=== PATIENT | male | born 1935 | race Caucasian/White ===

== ENCOUNTER 2018-01-03 08:29 | Inpatient (IN) | payer MEDICARE, OTHER ==
[2018-01-03 08:30] VITALS: BMI 34.2
[2018-01-03] MEDS ORDERED: Iohexol 240 (50 ml) PO STA (08:51)
[2018-01-03 09:07] LABS: BASO % 0.4 % (0.0-2.0); HEMOGLOBIN 12.7 g/dL (12.0-18.0); LYMPH # 0.8 K/uL (1.0-4.3); LYMPH % 9.5 % (20.0-40.0); MEAN CELL VOLUME 87.2 fL (80.0-94.0); MEAN CORPUSCULAR HEMOGLOBIN 30.3 pg (27.0-31.0); MEAN CORPUSCULAR HGB CONC 34.7 g/dL (33.0-37.0); MEAN PLATELET VOLUME 7.3 fL (7.2-11.7); MONO # 0.1 K/uL (0.0-0.8); MONO % 0.8 % (0.0-10.0); NEUT # 7.7 K/uL (1.8-7.0); NEUT % 89.3 % (50.0-75.0); PLATELET COUNT 194 K/uL (130-400); RBC 4.18 Mil/uL (4.40-5.90); RED CELL DISTRIBUTION WIDTH 13.8 % (11.5-14.5); WHITE BLOOD COUNT 8.6 K/uL (4.8-10.8)
--- NOTE | 2018-01-03 09:08 | C.PDOC ---
History Of Present Illness 82 y/o male with dementia, cardiac problems, on xarelto, brought to er by family for not feeing well since yesterday. pt with dec appetite yesterday with few episodes of clear vomitus, and abdominal pain, today with rigors. no sick contacts. pt unable to add much to history due to dementia Time Seen by Provider: 01/03/18 08:40 Chief Complaint (Nursing): Abdominal Pain History Per: Patient, Family History/Exam Limitations: physical impairment Current Symptoms Are (Timing): Worse Past Medical History Reviewed: Historical Data, Nursing Documentation, Vital Signs Vital Signs: Last Vital Signs Temp 98.2 F 01/04/18 08:44 Pulse 75 01/04/18 08:44 Resp 20 01/04/18 08:44 BP 119/65 01/04/18 08:44 Pulse Ox 92 L 01/04/18 09:15 - Medical History PMH: CAD, Cardia Arrhythmia (A FIB), Dementia, Diabetes, HTN, Hypercholesterolemia, Hypothyroidism Denies: Chronic Kidney Disease Surgical History: [facility] CORONAR ARTERIOGR-2 CATH (09/19/13) HEAD & NECK ENDARTER NEC (09/19/13) LEFT HEART CARDIAC CATH (09/19/13) LT HEART ANGIOCARDIOGRAM (09/19/13) PROCEDURE ON SINGLE VESSEL (09/19/13) Family History: States: Unknown Family Hx - Social History Hx Tobacco Use: No Hx Alcohol Use: No Hx Substance Use: No - Immunization History Hx Tetanus Toxoid Vaccination: No Hx Influenza Vaccination: Yes (10/2017) Hx Pneumococcal Vaccination: Yes (10/2017) Review Of Systems Review Of Systems: ROS cannot be obtained secondary to pt's inabilty to answer questions. (patient's dementia limits him from communicating well) Physical Exam - Physical Exam Appears: Non-toxic, In Acute Distress, Other (shaking with rigors) Skin: Warm, Dry, No Rash Head: Atraumatic, Normacephalic Eye(s): bilateral: Normal Inspection Nose: Normal Oral Mucosa: Dry Neck: Supple Chest: Symmetrical Cardiovascular: Rhythm Irregular Respiratory: Other (Coarse breath sounds, exam limited due to patient's shaking + rigors) Gastrointestinal/Abdominal: Bowel Sounds (positive), Soft, Tenderness (to the lower abdomen), No Guarding, No Rebound Extremity: Normal ROM, No Tenderness, No Pedal Edema Extremity: Bilateral: Atraumatic ED Course And Treatment - Laboratory Results Result Diagrams: 01/03/18 09:03 01/03/18 09:03 ECG: Interpreted By Me, Viewed By Me ECG Rhythm: Atrial Fibrillation (with rapid ventricular response) ECG Interpretation: Abnormal Interpretation Of ECG: Left axis deviation, nonspecific intraventricular block Rate From EC O2 Sat by Pulse Oximetry: 92 (RA) Pulse Ox Interpretation: Abnormal Progress Note: Plan: CT Abdomen and Pelvis. CMP. Lipase. CBC. CXR Two Views. NaCl IV Fluids. Tylenol 650mg PO. Zithromax 500mg/250ml. Zofran Inj. Rocephin 50ml IVP. Blood Culture. Urine Culture. Urinalysis Medical Decision Making Medical Decision Making: pt with rigors and fever, abnl appearing left sided cxr; will get labs, ua bc, uc. give antiboitcs ab ct scan 1400 no acute abnormalities on ct scan. will admot for pneumonia; discussed with Dr Arabella gordon, (covers for Dr Parks). Disposition Discussed With Dr.: Aydee Gordon Doctor Will See Patient In The: Hospital - Disposition Disposition: HOSPITALIZED Disposition Time: 14:06 Condition: STABLE - Clinical Impression Clinical Impression: Pneumonia - PA / DIRECTOR OF INFORMATICS / Resident Statement MD/DO has reviewed & agrees with the documentation as recorded. - Scribe Statement The provider has reviewed the documentation as recorded by the Scribe (Rob Marion) All medical record entries made by the Scribe were at my direction and personally dictated by me. I have reviewed the chart and agree that the record accurately reflects my personal performance of the history, physical exam, medical decision making, and the department course for this patient. I have also personally directed, reviewed, and agree with the discharge instructions and disposition.
[2018-01-03] MEDS: Sodium Chloride 0.9% 1,000 ML IV SCH ×2 (09:15→19:23)
[2018-01-03 09:19] LABS: ALB/GLOB RATIO 0.9 (1.0-2.1); ALBUMIN 3.7 g/dL (3.5-5.0); ALT/SGPT 34 U/L (21-72); AST/SGOT 42 U/L (17-59); BLOOD UREA NITROGEN 24 mg/dL (9-20); GFR AFRICAN-AMERICAN > 60; GFR NON-AFRICAN AMERICAN > 60; LIPASE 93 U/L (23-300)
[2018-01-03 09:50] LABS: SQUAMOUS EPITHIAL < 1 /hpf (0-5); URINE BACTERIA RARE (<OCC); URINE BILIRUBIN NEGATIVE (NEGATIVE); URINE BLOOD 1+ (NEGATIVE); URINE CLARITY Hazy (Clear); URINE GLUCOSE (UA) NORMAL (Normal); URINE HYALINE CAST 0-2 /lpf (0-2); URINE LEUKOCYTE ESTERASE NEG Leu/uL (Negative); URINE PROTEIN 2+ mg/dL (NEGATIVE)
[2018-01-03 09:58] LABS: URINE COLOR YELLOW (YELLOW)
[2018-01-03] MEDS ORDERED: cefTRIAXone IV 1 gm in Dextros 50 ML IVPB STA (09:58)
[2018-01-03] MEDS ORDERED: Azithromycin 500mg/250ML NS 500 MG/250 ML BAG IVPB STA (09:59)
[2018-01-03] MEDS ORDERED: cefTRIAXone IV 1 gm in Dextros 50 ML IVPB ONE (10:08)
[2018-01-03 10:19] LABS: LYMPHOCYTE 12 % (20-40); MONOCYTE 1 % (0-10); NEUTROPHIL 87 % (50-75); TOTAL CELLS COUNTED 100
[2018-01-03 10:20] LABS: PLATELET ESTIMATE NORMAL (NORMAL)
[2018-01-03] MEDS ORDERED: Iohexol 240 (50 ml) ONE (10:36)
[2018-01-03] MEDS ORDERED: Iodixanol 320 MG/ML 100 ML BOTTLE IV ONE (10:46)
--- NOTE | 2018-01-03 12:33 | RAD ---
HISTORY: cough fever low o2 sat COMPARISON: Portable chest 04/29/2016. FINDINGS: LUNGS: No active pulmonary disease. PLEURA: No significant pleural effusion identified, no pneumothorax apparent. CARDIOVASCULAR: Normal. OSSEOUS STRUCTURES: No significant abnormalities. VISUALIZED UPPER ABDOMEN: Normal. OTHER FINDINGS: None. IMPRESSION: No interval acute cardiopulmonary disease appreciated.
--- NOTE | 2018-01-03 13:25 | CT ---
PROCEDURE: CT Abdomen and Pelvis with contrast HISTORY: ab pain and fever COMPARISON: Prior abdomen and pelvis CT without contrast 05/01/2016. TECHNIQUE: Following oral and intravenous contrast administration, a CT examination of the abdomen and pelvis performed from the domes of the diaphragms to the symphysis pubis with reformatted datasets provided not only axial but also sagittal and coronal series. Contrast dose: Visipaque 320, 100 cc Radiation dose: Total exam DLP = 1035.60 mGy-cm. This CT exam was performed using one or more of the following dose reduction techniques: Automated exposure control, adjustment of the mA and/or kV according to patient size, and/or use of iterative reconstruction technique. FINDINGS: LOWER THORAX: Limited fibrotic changes at right base again evident. Extensive coronary artery calcifications reiterated. LIVER: Extensive hepatic cystic changes are reiterated which are not significantly changed in the interval affecting both right and left lobes with occasional calcifications or septations complicating various larger cysts. GALLBLADDER AND BILE DUCTS: Unremarkable. PANCREAS: A tiny sub cm lucency is stable at the body of the pancreas distally, likely benign. Remainder of the pancreas is unremarkable. SPLEEN: Unremarkable. ADRENALS: Unremarkable. No mass. KIDNEYS AND URETERS: Unremarkable. No hydronephrosis. No solid mass. VASCULATURE: A non aneurysmal atherosclerotic delete aorta is reiterated. BOWEL: Unremarkable. No obstruction. No gross mural thickening. APPENDIX: Normal appendix. PERITONEUM: Unremarkable. No free fluid. No free air. LYMPH NODES: Unremarkable. No enlarged lymph nodes. BLADDER: Unremarkable. REPRODUCTIVE: Enlarged prostate gland is again seen elbow lifting of the urinary bladder base. BONES: Grade 1 spondylolisthesis L5-S1 with L5 slightly anterior to S1. OTHER FINDINGS: Possible peripherally calcified chronic hematoma right buttocks again seen the subcutaneous soft tissues with dense calcification identified at the left buttocks as well. IMPRESSION: 1. No definitive acute abdominal findings. 2. Extensive diffuse hepatic cystic changes appears stable including complicated cysts as described above. 3. Likely benign lucency under 1 cm seen at the posterior body of the pancreas once again. 4. Enlarged prostate gland again evident.
--- NOTE | 2018-01-03 18:13 | CP.PCM.HP ---
Past Patient History - Infectious Disease Hx of Infectious Diseases: None - Past Social History Smoking Status: Former Smoker - CARDIAC Hx Cardia Arrhythmia: Yes (A FIB) Hx Hypercholesterolemia: Yes Hx Hypertension: Yes - PULMONARY Hx Respiratory Disorders: No - NEUROLOGICAL Hx Dementia: Yes - HEENT Hx HEENT Problems: No - RENAL Hx Chronic Kidney Disease: No - ENDOCRINE/METABOLIC Hx Hypothyroidism: Yes - HEMATOLOGICAL/ONCOLOGICAL Hx Blood Disorders: No - INTEGUMENTARY Hx Dermatological Problems: No - MUSCULOSKELETAL/RHEUMATOLOGICAL Hx Musculoskeletal Disorders: No Hx Falls: No - GASTROINTESTINAL Hx Gastrointestinal Disorders: No - GENITOURINARY/GYNECOLOGICAL Hx Genitourinary Disorders: Yes Hx Prostate Problems: Yes (ENLARGED PROSTATE) - PSYCHIATRIC Hx Substance Use: No - SURGICAL HISTORY Hx Carotid Endarterectomy: Yes (RIGHT) - ANESTHESIA Hx Anesthesia: Yes Hx Anesthesia Reactions: No Hx Malignant Hyperthermia: No Meds Allergies/Adverse Reactions: Allergies Allergy/AdvReac Type Severity Reaction Status Date / Time No Known Allergies Allergy Verified 01/03/18 08:37 Physical Exam - Constitutional Appears: Well - Head Exam Head Exam: ATRAUMATIC, NORMAL INSPECTION, NORMOCEPHALIC - Eye Exam Eye Exam: EOMI, Normal appearance, PERRL Pupil Exam: NORMAL ACCOMODATION, PERRL - ENT Exam ENT Exam: Mucous Membranes Moist, Normal Exam - Neck Exam Neck exam: Positive for: Normal Inspection - Respiratory Exam Respiratory Exam: Decreased Breath Sounds - Cardiovascular Exam Cardiovascular Exam: REGULAR RHYTHM, +S1, +S2 - GI/Abdominal Exam GI & Abdominal Exam: Diminished Bowel Sounds, Soft - Rectal Exam Rectal Exam: Deferred Results - Vital Signs Recent Vital Signs: Last Vital Signs Temp 99.5 F 01/03/18 10:47 Pulse 87 01/03/18 17:30 Resp 14 01/03/18 17:30 BP 115/67 01/03/18 17:30 Pulse Ox 97 01/03/18 17:30 - Labs Result Diagrams: 01/03/18 09:03 01/03/18 09:03 Labs: Laboratory Results - last 24 hr 01/03/18 01/03/18 01/03/18 08:39 09:03 09:03 WBC 8.6 RBC 4.18 L Hgb 12.7 Hct 36.5 MCV 87.2 MCH 30.3 MCHC 34.7 RDW 13.8 Plt Count 194 MPV 7.3 Neut % (Auto) 89.3 H Lymph % (Auto) 9.5 L [place] % (Auto) 0.8 Eos % (Auto) 0.0 Baso % (Auto) 0.4 Neut # (Auto) 7.7 H Lymph # (Auto) 0.8 L [place] # (Auto) 0.1 Eos # (Auto) 0.0 Baso # (Auto) 0.0 Neutrophils % (Manual) 87 H Lymphocytes % (Manual) 12 L Monocytes % (Manual) 1 Platelet Estimate Normal RBC Morphology Normal Sodium 135 Potassium 3.8 Chloride 94 L Carbon Dioxide 27 Anion Gap 17 BUN 24 H Creatinine 1.0 Est GFR ( Amer) > 60 Est GFR (Non-Af Amer) > 60 POC Glucose (mg/dL) 210 H Random Glucose 180 H Calcium 9.0 Total Bilirubin 1.4 H AST 42 ALT 34 Alkaline Phosphatase 65 Total Protein 7.7 Albumin 3.7 Globulin 4.0 H Albumin/Globulin Ratio 0.9 L Lipase 93 Urine Color Urine Clarity Urine pH Ur Specific [place] Urine Protein Urine Glucose (UA) Urine Ketones Urine Blood Urine Nitrate Urine Bilirubin Urine Urobilinogen Ur Leukocyte Esterase Urine WBC (Auto) Urine RBC (Auto) Ur Squamous Epith Cells Urine Bacteria Hyaline Casts 01/03/18 09:21 WBC RBC Hgb Hct MCV MCH MCHC RDW Plt Count MPV Neut % (Auto) Lymph % (Auto) [place] % (Auto) Eos % (Auto) Baso % (Auto) Neut # (Auto) Lymph # (Auto) [place] # (Auto) Eos # (Auto) Baso # (Auto) Neutrophils % (Manual) Lymphocytes % (Manual) Monocytes % (Manual) Platelet Estimate RBC Morphology Sodium Potassium Chloride Carbon Dioxide Anion Gap BUN Creatinine Est GFR ( Amer) Est GFR (Non-Af Amer) POC Glucose (mg/dL) Random Glucose Calcium Total Bilirubin AST ALT Alkaline Phosphatase Total Protein Albumin Globulin Albumin/Globulin Ratio Lipase Urine Color Yellow Urine Clarity Hazy Urine pH 5.0 Ur Specific [place] 1.023 Urine Protein 2+ H Urine Glucose (UA) Normal Urine Ketones Trace Urine Blood 1+ H Urine Nitrate Negative Urine Bilirubin Negative Urine Urobilinogen 2.0 Ur Leukocyte Esterase Neg Urine WBC (Auto) 2 Urine RBC (Auto) 3 Ur Squamous Epith Cells < 1 Urine Bacteria Rare Hyaline Casts 0-2
--- NOTE | 2018-01-03 22:25 | CP.PCM.CON ---
History of Present Illness - History of Present Illness History of Present Illness: Pulmonary Evaluation Covering Dr. Ocampo The patient was Seen/interviewed and examined by me at the bedside, Medical records reviewed and Management issues were discussed and formulated with the house staff. Events reviewed 82 years old Former Smoker male with PMHx of CAD, A FIB, Diabetes, HTN, Hypercholesterolemia, Hypothyroidism and dementia Who was brought in the ER by family for not feeing, cough and SOB well since yesterday. No H/O sick contact or recent travel. CXR sig for possible pneumonia, started on IV Rocephin and Azithromycin and admitted for further management, Improved Resp status today, Improved SOB. cough Of note he also had low saturation Patient confused, but no reported chest pain, fever/chills or Palpitations Afebrile This morning labs revealed No Leucocytosis, stable renal function BUN/Cr 24/1.0 - Social hx: Former tobacco, No alcohol or drug use. - CXR: 01/03/2018 09:24:02 ( Approved ) LUNGS: No active pulmonary disease. PLEURA: No significant pleural effusion identified, no pneumothorax apparent. CARDIOVASCULAR: Normal. OSSEOUS STRUCTURES: No significant abnormalities. VISUALIZED UPPER ABDOMEN: Normal. OTHER FINDINGS: None. IMPRESSION: No interval acute cardiopulmonary disease appreciated. Review of Systems - Review of Systems Systems not reviewed;Unavailable: Acuity of Condition, Uncooperative - Constitutional Constitutional: As Per HPI - Cardiovascular Cardiovascular: absent: Chest Pain, Chest Pain at Rest, Chest Pain with Activity , Diaphoresis - Respiratory Respiratory: Cough, Dyspnea, Dyspnea on Exertion. absent: Hemoptysis, Wheezing , Snoring Past Patient History - Infectious Disease Hx of Infectious Diseases: None - Past Social History Smoking Status: Former Smoker - CARDIAC Hx Cardia Arrhythmia: Yes (A FIB) Hx Hypercholesterolemia: Yes Hx Hypertension: Yes - PULMONARY Hx Respiratory Disorders: No - NEUROLOGICAL Hx Dementia: Yes - HEENT Hx HEENT Problems: No - RENAL Hx Chronic Kidney Disease: No - ENDOCRINE/METABOLIC Hx Hypothyroidism: Yes - HEMATOLOGICAL/ONCOLOGICAL Hx Blood Disorders: No - INTEGUMENTARY Hx Dermatological Problems: No - MUSCULOSKELETAL/RHEUMATOLOGICAL Hx Musculoskeletal Disorders: No Hx Falls: No - GASTROINTESTINAL Hx Gastrointestinal Disorders: No - GENITOURINARY/GYNECOLOGICAL Hx Genitourinary Disorders: Yes Hx Prostate Problems: Yes (ENLARGED PROSTATE) - PSYCHIATRIC Hx Substance Use: No - SURGICAL HISTORY Hx Carotid Endarterectomy: Yes (RIGHT) - ANESTHESIA Hx Anesthesia: Yes Hx Anesthesia Reactions: No Hx Malignant Hyperthermia: No Meds Allergies/Adverse Reactions: Allergies Allergy/AdvReac Type Severity Reaction Status Date / Time No Known Allergies Allergy Verified 01/03/18 08:37 - Medications Medications: Current Medications Aspirin (Ecotrin) 81 mg PO DAILY [facility] Digoxin (Lanoxin) 0.25 mg PO DAILY@1800 [facility] Donepezil HCl (Aricept) 5 mg PO DAILY [facility] Enalapril Maleate (Vasotec) 20 mg PO DAILY [facility] Ergocalciferol (Drisdol 50,000 Intl Units Cap) 1 cap PO QWK [facility] Furosemide (Lasix) 20 mg PO DAILY [facility] Sodium Chloride (Sodium Chloride 0.9%) 1,000 mls @ 100 mls/hr IV .Q10H [facility] Last Admin: 01/03/18 19:23 Dose: 100 mls/hr Ceftriaxone Sodium (Rocephin Iv 1 Gm Duplex) 50 mls @ 100 mls/hr IVPB DAILY [facility] PRN Reason: Protocol Stop: 01/14/18 10:01 Azithromycin 500 mg/ Sodium (Chloride) 250 mls @ 167 mls/hr IVPB DAILY [facility] PRN Reason: Protocol Levothyroxine Sodium (Synthroid) 25 mcg PO DAILY@0630 [facility] Lisinopril (Zestril) 40 mg PO DAILY [facility] Metformin HCl (Glucophage) 500 mg PO BID [facility] Last Admin: 01/03/18 18:18 Dose: 500 mg Metoprolol Tartrate (Lopressor) 25 mg PO BID [facility] Last Admin: 01/03/18 18:18 Dose: 25 mg Pantoprazole Sodium (Protonix Ec Tab) 20 mg PO DAILY [facility] Quetiapine Fumarate (Seroquel) 25 mg PO [facility] Last Admin: 01/03/18 21:13 Dose: 25 mg Rivaroxaban (Xarelto) 20 mg PO DAILY [facility] Rosuvastatin Calcium (Crestor) 5 mg PO HS [facility] Last Admin: 01/03/18 21:13 Dose: 5 mg Tamsulosin HCl (Flomax) 0.4 mg PO DAILY [facility] Physical Exam - Constitutional Appears: Well, Non-toxic - Head Exam Head Exam: ATRAUMATIC, NORMAL INSPECTION - Eye Exam Eye Exam: EOMI, Normal appearance. absent: Conjunctival injection - ENT Exam ENT Exam: Mucous Membranes Moist - Neck Exam Neck exam: Positive for: Full Rom, Normal Inspection. Negative for: Lymphadenopathy, Meningismus, Tenderness - Respiratory Exam Respiratory Exam: Decreased Breath Sounds, Rhonchi. absent: Accessory Muscle Use, Chest Wall Tenderness, Clear to Auscultation Bilateral, Prolonged Expiratory Phase, Wheezes, NORMAL BREATHING PATTERN - Cardiovascular Exam Cardiovascular Exam: Irregular Rhythm, +S1, +S2. absent: REGULAR RHYTHM, JVD - GI/Abdominal Exam GI & Abdominal Exam: Distended, Normal Bowel Sounds. absent: Firm, Guarding, Hernia - Extremities Exam Extremities exam: Positive for: full ROM, normal capillary refill, pedal pulses present. Negative for: calf tenderness, joint swelling, pedal edema, tenderness - Neurological Exam Neurological exam: Altered - Psychiatric Exam Psychiatric exam: Normal Affect, Normal Mood Results - Vital Signs Recent Vital Signs: Last Vital Signs Temp 97.4 F L 01/03/18 19:03 Pulse 76 01/03/18 19:03 Resp 20 01/03/18 19:03 BP 120/65 01/03/18 19:03 Pulse Ox 97 01/03/18 19:03 - Labs Result Diagrams: 01/03/18 09:03 01/03/18 09:03 Labs: Laboratory Results - last 24 hr 01/03/18 01/03/18 01/03/18 08:39 09:03 09:03 WBC 8.6 RBC 4.18 L Hgb 12.7 Hct 36.5 MCV 87.2 MCH 30.3 MCHC 34.7 RDW 13.8 Plt Count 194 MPV 7.3 Neut % (Auto) 89.3 H Lymph % (Auto) 9.5 L [place] % (Auto) 0.8 Eos % (Auto) 0.0 Baso % (Auto) 0.4 Neut # (Auto) 7.7 H Lymph # (Auto) 0.8 L [place] # (Auto) 0.1 Eos # (Auto) 0.0 Baso # (Auto) 0.0 Neutrophils % (Manual) 87 H Lymphocytes % (Manual) 12 L Monocytes % (Manual) 1 Platelet Estimate Normal RBC Morphology Normal Sodium 135 Potassium 3.8 Chloride 94 L Carbon Dioxide 27 Anion Gap 17 BUN 24 H Creatinine 1.0 Est GFR ( Amer) > 60 Est GFR (Non-Af Amer) > 60 POC Glucose (mg/dL) 210 H Random Glucose 180 H Calcium 9.0 Total Bilirubin 1.4 H AST 42 ALT 34 Alkaline Phosphatase 65 Total Protein 7.7 Albumin 3.7 Globulin 4.0 H Albumin/Globulin Ratio 0.9 L Lipase 93 Urine Color Urine Clarity Urine pH Ur Specific [place] Urine Protein Urine Glucose (UA) Urine Ketones Urine Blood Urine Nitrate Urine Bilirubin Urine Urobilinogen Ur Leukocyte Esterase Urine WBC (Auto) Urine RBC (Auto) Ur Squamous Epith Cells Urine Bacteria Hyaline Casts 01/03/18 01/03/18 01/03/18 09:21 18:15 21:12 WBC RBC Hgb Hct MCV MCH MCHC RDW Plt Count MPV Neut % (Auto) Lymph % (Auto) [place] % (Auto) Eos % (Auto) Baso % (Auto) Neut # (Auto) Lymph # (Auto) [place] # (Auto) Eos # (Auto) Baso # (Auto) Neutrophils % (Manual) Lymphocytes % (Manual) Monocytes % (Manual) Platelet Estimate RBC Morphology Sodium Potassium Chloride Carbon Dioxide Anion Gap BUN Creatinine Est GFR ( Amer) Est GFR (Non-Af Amer) POC Glucose (mg/dL) 184 H 123 H Random Glucose Calcium Total Bilirubin AST ALT Alkaline Phosphatase Total Protein Albumin Globulin Albumin/Globulin Ratio Lipase Urine Color Yellow Urine Clarity Hazy Urine pH 5.0 Ur Specific [place] 1.023 Urine Protein 2+ H Urine Glucose (UA) Normal Urine Ketones Trace Urine Blood 1+ H Urine Nitrate Negative Urine Bilirubin Negative Urine Urobilinogen 2.0 Ur Leukocyte Esterase Neg Urine WBC (Auto) 2 Urine RBC (Auto) 3 Ur Squamous Epith Cells < 1 Urine Bacteria Rare Hyaline Casts 0-2 Assessment & Plan (1) Pneumonia Status: Acute Priority: High Comment: - Continue Azithromycin 500 mg IVPB DAILY. - Continue Rocephin Iv 1 Gm D IVPB DAILY. - Suplemental Oxygen. - Monitor fever curve, Tylenol PRN fevers. -Trend WBC count, lactate. - Check urine legionella and pneumococcus/ strep antigen. - sputum culture to rule out resistant pathogens. - Follow up Blood Cultures. - Follow up Urine Cultures. - Repeat CXR in 2-3 days (2) Afib Status: Acute Priority: Medium Comment: Continue Metoprolol (3) Congestive heart failure Status: Acute Priority: Medium Comment: Strict I&O, daily Wt. No evidance of fluid overload at this time. Further Management as per primary team (4) Sepsis Status: Acute Priority: High Comment: IV Hydrations. Optimize blood pressure
[2018-01-04] MEDS: Levothyroxine 25 MCG TAB PO SCH (05:36)
[2018-01-04] MEDS: Sodium Chloride 0.9% 1,000 ML IV SCH ×2 (06:24→18:42)
[2018-01-04] MEDS ORDERED: cefTRIAXone IV 1 gm in Dextros 50 ML IVPB SCH (10:00)
[2018-01-04] MEDS: Pantoprazole 20 mg EC Tab PO SCH (11:04)
[2018-01-04] MEDS: Azithromycin 500 MG in Sodium Chloride 0.9% 250 ML IVPB SCH (11:06)
--- NOTE | 2018-01-04 12:18 | CP.PCM.PN ---
Subjective - Date & Time of Evaluation Date of Evaluation: 01/04/18 Time of Evaluation: 09:10 - Subjective Subjective: The patient seen and examined Complaining of generalized aches Denies shortness of breath Afebrile Being treated for pneumonia Continue antibiotics For followup chest x-ray Objective - Vital Signs/Intake and Output Vital Signs (last 24 hours): Temp Pulse Resp BP Pulse Ox 98.2 F 75 20 119/65 92 L 01/04/18 08:44 01/04/18 08:44 01/04/18 08:44 01/04/18 11:05 01/04/18 09:16 Intake and Output: 01/04/18 01/04/18 06:59 18:59 Intake Total 800 Balance 800 - Medications Medications: Current Medications Aspirin (Ecotrin) 81 mg PO DAILY [facility] Last Admin: 01/04/18 11:03 Dose: 81 mg Digoxin (Lanoxin) 0.25 mg PO DAILY@1800 [facility] Donepezil HCl (Aricept) 5 mg PO DAILY [facility] Last Admin: 01/04/18 11:03 Dose: 5 mg Enalapril Maleate (Vasotec) 20 mg PO DAILY [facility] Last Admin: 01/04/18 11:05 Dose: 20 mg Ergocalciferol (Drisdol 50,000 Intl Units Cap) 1 cap PO QWK [facility] Furosemide (Lasix) 20 mg PO DAILY [facility] Last Admin: 01/04/18 11:05 Dose: 20 mg Sodium Chloride (Sodium Chloride 0.9%) 1,000 mls @ 100 mls/hr IV .Q10H [facility] Last Admin: 01/04/18 06:24 Dose: 100 mls/hr Azithromycin 500 mg/ Sodium (Chloride) 250 mls @ 167 mls/hr IVPB DAILY [facility] PRN Reason: Protocol Last Admin: 01/04/18 11:06 Dose: 167 mls/hr [place] 1 gm/ Sodium (Chloride) 100 mls @ 100 mls/hr IVPB Q8 [facility] PRN Reason: Protocol Stop: 01/06/18 22:59 Levothyroxine Sodium (Synthroid) 25 mcg PO DAILY@0630 [facility] Last Admin: 01/04/18 05:36 Dose: 25 mcg Lisinopril (Zestril) 40 mg PO DAILY [facility] Last Admin: 01/04/18 11:08 Dose: 40 mg Metformin HCl (Glucophage) 500 mg PO BID [facility] Last Admin: 01/04/18 11:03 Dose: 500 mg Metoprolol Tartrate (Lopressor) 25 mg PO BID [facility] Last Admin: 01/04/18 11:04 Dose: 25 mg Pantoprazole Sodium (Protonix Ec Tab) 20 mg PO DAILY [facility] Last Admin: 01/04/18 11:04 Dose: 20 mg Quetiapine Fumarate (Seroquel) 25 mg PO HS [facility] Last Admin: 01/03/18 21:13 Dose: 25 mg Rivaroxaban (Xarelto) 20 mg PO DAILY [facility] Last Admin: 01/04/18 11:02 Dose: 20 mg Rosuvastatin Calcium (Crestor) 5 mg PO HS [facility] Last Admin: 01/03/18 21:13 Dose: 5 mg Tamsulosin HCl (Flomax) 0.4 mg PO DAILY [facility] Last Admin: 01/04/18 11:03 Dose: 0.4 mg - Labs Labs: 01/03/18 09:03 01/03/18 09:03
--- NOTE | 2018-01-04 14:28 | CP.PCM.PN ---
Subjective - Date & Time of Evaluation Date of Evaluation: 01/04/18 Time of Evaluation: 13:20 - Subjective Subjective: clinically same Objective - Vital Signs/Intake and Output Vital Signs (last 24 hours): Temp Pulse Resp BP Pulse Ox 98.2 F 75 20 119/65 92 L 01/04/18 08:44 01/04/18 08:44 01/04/18 08:44 01/04/18 11:05 01/04/18 09:16 Intake and Output: 01/04/18 01/04/18 06:59 18:59 Intake Total 800 Balance 800 - Medications Medications: Current Medications Aspirin (Ecotrin) 81 mg PO DAILY [facility] Last Admin: 01/04/18 11:03 Dose: 81 mg Digoxin (Lanoxin) 0.25 mg PO DAILY@1800 [facility] Donepezil HCl (Aricept) 5 mg PO DAILY [facility] Last Admin: 01/04/18 11:03 Dose: 5 mg Enalapril Maleate (Vasotec) 20 mg PO DAILY [facility] Last Admin: 01/04/18 11:05 Dose: 20 mg Ergocalciferol (Drisdol 50,000 Intl Units Cap) 1 cap PO QWK [facility] Furosemide (Lasix) 20 mg PO DAILY [facility] Last Admin: 01/04/18 11:05 Dose: 20 mg Sodium Chloride (Sodium Chloride 0.9%) 1,000 mls @ 100 mls/hr IV .Q10H [facility] Last Admin: 01/04/18 06:24 Dose: 100 mls/hr Azithromycin 500 mg/ Sodium (Chloride) 250 mls @ 167 mls/hr IVPB DAILY [facility] PRN Reason: Protocol Last Admin: 01/04/18 11:06 Dose: 167 mls/hr Meropenem 1 gm/ Sodium (Chloride) 100 mls @ 100 mls/hr IVPB Q8 [facility] PRN Reason: Protocol Stop: 01/06/18 22:59 Levothyroxine Sodium (Synthroid) 25 mcg PO DAILY@0630 [facility] Last Admin: 01/04/18 05:36 Dose: 25 mcg Lisinopril (Zestril) 40 mg PO DAILY [facility] Last Admin: 01/04/18 11:08 Dose: 40 mg Metformin HCl (Glucophage) 500 mg PO BID [facility] Last Admin: 01/04/18 11:03 Dose: 500 mg Metoprolol Tartrate (Lopressor) 25 mg PO BID [facility] Last Admin: 01/04/18 11:04 Dose: 25 mg Pantoprazole Sodium (Protonix Ec Tab) 20 mg PO DAILY [facility] Last Admin: 01/04/18 11:04 Dose: 20 mg Quetiapine Fumarate (Seroquel) 25 mg PO HS [facility] Last Admin: 01/03/18 21:13 Dose: 25 mg Rivaroxaban (Xarelto) 20 mg PO DAILY [facility] Last Admin: 01/04/18 11:02 Dose: 20 mg Rosuvastatin Calcium (Crestor) 5 mg PO HS [facility] Last Admin: 01/03/18 21:13 Dose: 5 mg Tamsulosin HCl (Flomax) 0.4 mg PO DAILY [facility] Last Admin: 01/04/18 11:03 Dose: 0.4 mg - Labs Labs: 01/03/18 09:03 01/03/18 09:03 - Constitutional Appears: Well - Head Exam Head Exam: ATRAUMATIC, NORMAL INSPECTION, NORMOCEPHALIC - Eye Exam Eye Exam: EOMI, Normal appearance, PERRL Pupil Exam: NORMAL ACCOMODATION, PERRL - ENT Exam ENT Exam: Mucous Membranes Moist, Normal Exam - Neck Exam Neck Exam: Full ROM, Normal Inspection. absent: Lymphadenopathy - Respiratory Exam Respiratory Exam: Decreased Breath Sounds - Cardiovascular Exam Cardiovascular Exam: +S1, +S2 - GI/Abdominal Exam GI & Abdominal Exam: Soft, Diminished Bowel Sounds - Rectal Exam Rectal Exam: Deferred
[2018-01-04] MEDS: Meropenem 1 GM in Sodium Chloride 0.9% 100 ML IVPB SCH ×2 (15:16→21:24)
[2018-01-04] MEDS: Digoxin 250 mcg (0.25 mg) Tab PO SCH (17:29)
[2018-01-05] MEDS: Levothyroxine 25 MCG TAB PO SCH (05:29)
[2018-01-05] MEDS: Meropenem 1 GM in Sodium Chloride 0.9% 100 ML IVPB SCH ×3 (05:29→21:41)
[2018-01-05] MEDS: Pantoprazole 20 mg EC Tab PO SCH (10:52)
[2018-01-05] MEDS: Azithromycin 500 MG in Sodium Chloride 0.9% 250 ML IVPB SCH (10:52)
--- NOTE | 2018-01-05 11:10 | CP.PCM.CON ---
History of Present Illness - History of Present Illness History of Present Illness: 82 y/o male with dementia, cardiac problems, on xarelto, brought to er by family for not feeing well since yesterday. pt with dec appetite yesterday with few episodes of clear vomitus, and abdominal pain, today with rigors. no sick contacts. pt unable to add much to history due to dementia ADMITTED WITH GRAM NEG SEPSIS SUSPECT SOURCE + HEPATIC CYSTS AWAIT CULTURE REPORTS CONT IV RX - Medical History PMH: CAD, Cardia Arrhythmia (A FIB), Dementia, Diabetes, HTN, Hypercholesterolemia, Hypothyroidism Denies: Chronic Kidney Disease Surgical History: Carotid Endarterectomy (RIGHT) - [facility] Procedures CORONAR ARTERIOGR-2 CATH (09/19/13) HEAD & NECK ENDARTER NEC (09/19/13) LEFT HEART CARDIAC CATH (09/19/13) LT HEART ANGIOCARDIOGRAM (09/19/13) PROCEDURE ON SINGLE VESSEL (09/19/13) Review of Systems - Review of Systems All systems: reviewed and no additional remarkable complaints except - Constitutional Constitutional: As Per HPI - EENT Eyes: absent: As Per HPI, Blind Spots, Blurred Vision, Change in Vision, Decreased Night Vision, Diplopia, Discharge, Dry Eye, Exophthalmos, Floaters, Irritation, Itchy Eyes, Loss of Peripheral Vision, Pain, Photophobia, Requires Corrective Lenses, Sees Flashes, Spots in Vision, Tunnel Vision, Other Visual Disturbances, Loss of Vision, Other Ears: absent: As Per HPI, Decreased Hearing, Ear Discharge, Ear Pain, Tinnitus, Abnormal Hearing, Disequilibrium, Dizziness, Other Nose/Mouth/Throat: absent: As Per HPI, Epistaxis, Nasal Congestion, Nasal Discharge, Nasal Obstruction, Nasal Trauma, Nose Pain, Post Nasal Drip, Sinus Pain, Sinus Pressure, Bleeding Gums, Change in Voice, Dental Pain, Dry Mouth, Dysphagia, Halitosis, Hoarsness, Lip Swelling, Mouth Lesions, Mouth Pain, Odynophagia, Sore Throat, Throat Swelling, Tongue Swelling, Facial Pain, Neck Pain, Neck Mass, Other - Cardiovascular Cardiovascular: absent: As Per HPI, Acrocyanosis, Chest Pain, Chest Pain at Rest , Chest Pain with Activity, Claudication, Diaphoresis, Dyspnea, Dyspnea on Exertion, Edema, Irregular Heart Rhythm, Pain Radiating to Arm/Neck/Jaw, Leg Edema, Leg Ulcers, Lightheadedness, Orthopnea, Palpitations, Paroxysmal Nocturnal Dyspnea, Pedal Edema, Radiating Pain, Rapid Heart Rate, Slow Heart Rate, Syncope, Other - Respiratory Respiratory: absent: As Per HPI, Cough, Dyspnea, Hemoptysis, Dyspnea on Exertion , Wheezing, Snoring, Stridor, Pain on Inspiration, Chest Congestion, Excessive Mucous Production, Change in Mucous Color, Pain with Coughing, Other - Gastrointestinal Gastrointestinal: absent: As Per HPI, Abdominal Pain, Belching, Bloating, Change in Bowel Habits, Change in Stool Character, Coffee Ground Emesis, Constipation, Cramping, Diarrhea, Dyspepsia, Dysphagia, Early Satiety, Excessive Flatus, Fecal Incontinence, Heartburn, Hematemesis, Hematochezia, Loose Stools, Melena, Nausea, Odynophagia, Temesmus, Vomiting, Other - Genitourinary Genitourinary: absent: As Per HPI, Change in Urinary Stream, Difficulty Urinating, Dysuria, Flank Pain, Hematuria, Pyuria, Nocturia, Urinary Incontinence, Urinary Frequency, Urinary Hesitance, Urinary Urgency, Voiding Freq/Small Amts, Freq UTI, Hx Renal/Bladder Calculi, Hx /Renal Surgery, Bladder Distension, Other - Musculoskeletal Musculoskeletal: absent: As Per HPI, Abnormal Gait, Arthralgias, Atrophy, Back Pain, Deformity, Joint Swelling, Limited Range of Motion, Loss of Height, Muscle Cramps, Muscle Weakness, Myalgias, Neck Pain, Numbness, Radiating Pain into Limb, Stiffness, Tingling, Other - Integumentary Integumentary: absent: As Per HPI, Acne, Alopecia, Bleeding Lesions, Change in Hair, Change in Nails, Change in Pigmentation, Changing Lesions, Dry Skin, Erythema, Furuncle, Hirsutism, Lesions, New Lesions, Non-Healing Lesions, Photosensitivity, Pruritus, Rash, Skin Pain, Skin Ulcer, Sores, Striae, Swelling , Unusual Bruising, Wounds, Jaundice, Other - Neurological Neurological: absent: As Per HPI, Abnormal Gait, Abnormal Hearing, Abnormal Movements, Abnormal Speech, Behavioral Changes, Burning Sensations, Confusion, Convulsions, Disequilibrium, Dizziness, Numbness, Focal Weakness, Frequent Falls , Headaches, Lack of Coordination, Loss of Vision, Memory Loss, Paresthesias, Radicular Pain, Restless Legs, Sensory Deficit, Syncope, Tingling, Tremor, Vertigo, Weakness, Other Visual Disturbances, Other - Psychiatric Psychiatric: absent: As Per HPI, Abnormal Sleep Pattern, Anhedonia, Anxiety, Auditory Hallucinations, Behavioral Changes, Change in Appetite, Change in Libido, Confusion, Depression, Difficulty Concentrating, Hallucinations, Homicidal Ideation, Hopelessness, Irritability, Memory Loss, Mood Swings, Panic Attacks, Paranoia, Suicidal Ideation, Visual Hallucinations, Tactile Hallucinations, Other - Endocrine Endocrine: absent: As Per HPI, Change in Body Appearance, Change in Libido, Cold Intolorance, Deepening of Voice, Excessive Sweating, Fatigue, Flushing, Heat Intolorance, Increase in Ring/Shoe/Hat Size, Palpitations, Polydipsia, Polyphagia, Polyuria, Other - Hematologic/Lymphatic Hematologic: absent: As Per HPI, Easy Bleeding, Easy Bruising, Lymphadenopathy, Other Past Patient History - Infectious Disease Hx of Infectious Diseases: None - Past Social History Smoking Status: Former Smoker - CARDIAC Hx Cardia Arrhythmia: Yes (A FIB) Hx Hypercholesterolemia: Yes Hx Hypertension: Yes - PULMONARY Hx Respiratory Disorders: No - NEUROLOGICAL Hx Dementia: Yes - HEENT Hx HEENT Problems: No - RENAL Hx Chronic Kidney Disease: No - ENDOCRINE/METABOLIC Hx Hypothyroidism: Yes - HEMATOLOGICAL/ONCOLOGICAL Hx Blood Disorders: No - INTEGUMENTARY Hx Dermatological Problems: No - MUSCULOSKELETAL/RHEUMATOLOGICAL Hx Musculoskeletal Disorders: No Hx Falls: No - GASTROINTESTINAL Hx Gastrointestinal Disorders: No - GENITOURINARY/GYNECOLOGICAL Hx Genitourinary Disorders: Yes Hx Prostate Problems: Yes (ENLARGED PROSTATE) - PSYCHIATRIC Hx Substance Use: No - SURGICAL HISTORY Hx Carotid Endarterectomy: Yes (RIGHT) - ANESTHESIA Hx Anesthesia: Yes Hx Anesthesia Reactions: No Hx Malignant Hyperthermia: No Meds Allergies/Adverse Reactions: Allergies Allergy/AdvReac Type Severity Reaction Status Date / Time No Known Allergies Allergy Verified 01/03/18 08:37 - Medications Medications: Current Medications Aspirin (Ecotrin) 81 mg PO DAILY [facility] Last Admin: 01/05/18 10:54 Dose: 81 mg Digoxin (Lanoxin) 0.25 mg PO DAILY@1800 [facility] Last Admin: 01/04/18 17:29 Dose: 0.25 mg Donepezil HCl (Aricept) 5 mg PO DAILY [facility] Last Admin: 01/05/18 10:52 Dose: 5 mg Enalapril Maleate (Vasotec) 20 mg PO DAILY [facility] Last Admin: 01/05/18 10:53 Dose: 20 mg Ergocalciferol (Drisdol 50,000 Intl Units Cap) 1 cap PO QWK [facility] Furosemide (Lasix) 20 mg PO DAILY [facility] Last Admin: 01/05/18 10:54 Dose: 20 mg Sodium Chloride (Sodium Chloride 0.9%) 1,000 mls @ 100 mls/hr IV .Q10H [facility] Last Admin: 01/04/18 18:42 Dose: 100 mls/hr Azithromycin 500 mg/ Sodium (Chloride) 250 mls @ 167 mls/hr IVPB DAILY [facility] PRN Reason: Protocol Last Admin: 01/05/18 10:52 Dose: 167 mls/hr Meropenem 1 gm/ Sodium (Chloride) 100 mls @ 100 mls/hr IVPB Q8 [facility] PRN Reason: Protocol Stop: 01/06/18 22:59 Last Admin: 01/05/18 05:29 Dose: 100 mls/hr Levothyroxine Sodium (Synthroid) 25 mcg PO DAILY@0630 [facility] Last Admin: 01/05/18 05:29 Dose: 25 mcg Lisinopril (Zestril) 40 mg PO DAILY [facility] Last Admin: 01/05/18 10:53 Dose: 40 mg Metformin HCl (Glucophage) 500 mg PO BID [facility] Last Admin: 01/05/18 10:52 Dose: 500 mg Metoprolol Tartrate (Lopressor) 25 mg PO BID [facility] Last Admin: 01/05/18 10:54 Dose: 25 mg Pantoprazole Sodium (Protonix Ec Tab) 20 mg PO DAILY [facility] Last Admin: 01/05/18 10:52 Dose: 20 mg Quetiapine Fumarate (Seroquel) 25 mg PO HS [facility] Last Admin: 01/04/18 21:25 Dose: 25 mg Rivaroxaban (Xarelto) 20 mg PO DAILY [facility] Last Admin: 01/05/18 10:54 Dose: 20 mg Rosuvastatin Calcium (Crestor) 5 mg PO [facility] Last Admin: 01/04/18 21:25 Dose: 5 mg Tamsulosin HCl (Flomax) 0.4 mg PO DAILY [facility] Last Admin: 01/05/18 10:54 Dose: 0.4 mg Physical Exam - Constitutional Appears: Non-toxic, Chronically Ill - Head Exam Head Exam: NORMOCEPHALIC - Eye Exam Eye Exam: absent: Scleral icterus - ENT Exam ENT Exam: Mucous Membranes Dry - Neck Exam Neck exam: Negative for: Lymphadenopathy - Respiratory Exam Respiratory Exam: Decreased Breath Sounds - Cardiovascular Exam Cardiovascular Exam: REGULAR RHYTHM - GI/Abdominal Exam GI & Abdominal Exam: Diminished Bowel Sounds, Soft. absent: Tenderness - Rectal Exam Rectal Exam: Deferred - Exam Exam: NORMAL INSPECTION - Extremities Exam Extremities exam: Positive for: pedal pulses present. Negative for: calf tenderness, pedal edema - Back Exam Back exam: absent: CVA tenderness (L), CVA tenderness (R) - Neurological Exam Neurological exam: Alert, Altered, CN II-XII Intact, Reflexes Normal - Psychiatric Exam Psychiatric exam: Normal Mood - Skin Skin Exam: Dry Results - Vital Signs Recent Vital Signs: Last Vital Signs Temp 99.7 F H 01/05/18 07:20 Pulse 103 H 01/05/18 07:20 Resp 20 01/05/18 07:20 BP 153/88 H 01/05/18 10:54 Pulse Ox 95 01/05/18 07:20 - Labs Result Diagrams: 01/06/18 06:17 01/06/18 06:17 Labs: Laboratory Results - last 24 hr 01/04/18 01/04/18 01/04/18 12:00 16:54 21:41 POC Glucose (mg/dL) 179 H 160 H 176 H 01/05/18 06:10 POC Glucose (mg/dL) 170 H Assessment & Plan (1) Sepsis Status: Acute Priority: High (2) Congestive heart failure Status: Acute Priority: Medium - Assessment and Plan (Free Text) Assessment: source unclear cont iv antibiotics await cultures
--- NOTE | 2018-01-05 15:18 | CP.PCM.PN ---
Subjective - Date & Time of Evaluation Date of Evaluation: 01/05/18 Time of Evaluation: 11:00 - Subjective Subjective: Patient seen and examined at bedside today. Patient resting comfortably in no acute distress. Review of systems unobtainable due to mental status. Assessment/ Plan: 1. Bacteremia - Blood Cultures from 01/03 positive for Gram Negative Bacteria - Urine Cultures from 01/03 negative - Temp 99.7 F, HR 103 - Tmax 101.7F on admission on 01/03 - Continue Meropenem - Continue Azithromycin - Management per primary team 2. Pneumonia - CXR 01/03: No acute pulmonary disease - No leukocytosis on admission, awaiting repeat CBC 3. Atrial Fibrillation - Management per primary team 4. CHF - Management per primary team 5. Dementia - Management per primary team Objective - Vital Signs/Intake and Output Vital Signs (last 24 hours): Temp Pulse Resp BP Pulse Ox 99.7 F H 103 H 20 153/88 H 95 01/05/18 07:20 01/05/18 07:20 01/05/18 07:20 01/05/18 10:54 01/05/18 07:20 Intake and Output: 01/05/18 01/05/18 06:59 18:59 Intake Total 1850 Balance 1850 - Medications Medications: Current Medications Aspirin (Ecotrin) 81 mg PO DAILY [facility] Last Admin: 01/05/18 10:54 Dose: 81 mg Digoxin (Lanoxin) 0.25 mg PO DAILY@1800 [facility] Last Admin: 01/04/18 17:29 Dose: 0.25 mg Donepezil HCl (Aricept) 5 mg PO DAILY [facility] Last Admin: 01/05/18 10:52 Dose: 5 mg Enalapril Maleate (Vasotec) 20 mg PO DAILY [facility] Last Admin: 01/05/18 10:53 Dose: 20 mg Ergocalciferol (Drisdol 50,000 Intl Units Cap) 1 cap PO QWK [facility] Furosemide (Lasix) 20 mg PO DAILY [facility] Last Admin: 01/05/18 10:54 Dose: 20 mg Sodium Chloride (Sodium Chloride 0.9%) 1,000 mls @ 100 mls/hr IV .Q10H [facility] Last Admin: 01/04/18 18:42 Dose: 100 mls/hr Azithromycin 500 mg/ Sodium (Chloride) 250 mls @ 167 mls/hr IVPB DAILY [facility] PRN Reason: Protocol Last Admin: 01/05/18 10:52 Dose: 167 mls/hr Meropenem 1 gm/ Sodium (Chloride) 100 mls @ 100 mls/hr IVPB Q8 [facility] PRN Reason: Protocol Stop: 01/06/18 22:59 Last Admin: 01/05/18 14:41 Dose: 100 mls/hr Levothyroxine Sodium (Synthroid) 25 mcg PO DAILY@0630 [facility] Last Admin: 01/05/18 05:29 Dose: 25 mcg Lisinopril (Zestril) 40 mg PO DAILY [facility] Last Admin: 01/05/18 10:53 Dose: 40 mg Metformin HCl (Glucophage) 500 mg PO BID [facility] Last Admin: 01/05/18 10:52 Dose: 500 mg Metoprolol Tartrate (Lopressor) 25 mg PO BID [facility] Last Admin: 01/05/18 10:54 Dose: 25 mg Pantoprazole Sodium (Protonix Ec Tab) 20 mg PO DAILY [facility] Last Admin: 01/05/18 10:52 Dose: 20 mg Quetiapine Fumarate (Seroquel) 25 mg PO HS [facility] Last Admin: 01/04/18 21:25 Dose: 25 mg Rivaroxaban (Xarelto) 20 mg PO DAILY [facility] Last Admin: 01/05/18 10:54 Dose: 20 mg Rosuvastatin Calcium (Crestor) 5 mg PO HS [facility] Last Admin: 01/04/18 21:25 Dose: 5 mg Saccharomyces Boulardii (Florastor) 250 mg PO BID [facility] Tamsulosin HCl (Flomax) 0.4 mg PO DAILY [facility] Last Admin: 01/05/18 10:54 Dose: 0.4 mg - Labs Labs: 01/03/18 09:03 01/03/18 09:03
--- NOTE | 2018-01-05 15:29 | CP.PCM.PN ---
Subjective - Date & Time of Evaluation Date of Evaluation: 01/05/18 Time of Evaluation: 12:20 - Subjective Subjective: clinically same Objective - Vital Signs/Intake and Output Vital Signs (last 24 hours): Temp Pulse Resp BP Pulse Ox 99.7 F H 103 H 20 153/88 H 95 01/05/18 07:20 01/05/18 07:20 01/05/18 07:20 01/05/18 10:54 01/05/18 07:20 Intake and Output: 01/05/18 01/05/18 06:59 18:59 Intake Total 1850 Balance 1850 - Medications Medications: Current Medications Aspirin (Ecotrin) 81 mg PO DAILY [facility] Last Admin: 01/05/18 10:54 Dose: 81 mg Digoxin (Lanoxin) 0.25 mg PO DAILY@1800 [facility] Last Admin: 01/04/18 17:29 Dose: 0.25 mg Donepezil HCl (Aricept) 5 mg PO DAILY [facility] Last Admin: 01/05/18 10:52 Dose: 5 mg Enalapril Maleate (Vasotec) 20 mg PO DAILY [facility] Last Admin: 01/05/18 10:53 Dose: 20 mg Ergocalciferol (Drisdol 50,000 Intl Units Cap) 1 cap PO QWK [facility] Furosemide (Lasix) 20 mg PO DAILY [facility] Last Admin: 01/05/18 10:54 Dose: 20 mg Sodium Chloride (Sodium Chloride 0.9%) 1,000 mls @ 100 mls/hr IV .Q10H [facility] Last Admin: 01/04/18 18:42 Dose: 100 mls/hr Azithromycin 500 mg/ Sodium (Chloride) 250 mls @ 167 mls/hr IVPB DAILY [facility] PRN Reason: Protocol Last Admin: 01/05/18 10:52 Dose: 167 mls/hr Meropenem 1 gm/ Sodium (Chloride) 100 mls @ 100 mls/hr IVPB Q8 [facility] PRN Reason: Protocol Stop: 01/06/18 22:59 Last Admin: 01/05/18 14:41 Dose: 100 mls/hr Levothyroxine Sodium (Synthroid) 25 mcg PO DAILY@0630 [facility] Last Admin: 01/05/18 05:29 Dose: 25 mcg Lisinopril (Zestril) 40 mg PO DAILY [facility] Last Admin: 01/05/18 10:53 Dose: 40 mg Metformin HCl (Glucophage) 500 mg PO BID [facility] Last Admin: 01/05/18 10:52 Dose: 500 mg Metoprolol Tartrate (Lopressor) 25 mg PO BID [facility] Last Admin: 01/05/18 10:54 Dose: 25 mg Pantoprazole Sodium (Protonix Ec Tab) 20 mg PO DAILY [facility] Last Admin: 01/05/18 10:52 Dose: 20 mg Quetiapine Fumarate (Seroquel) 25 mg PO HS [facility] Last Admin: 01/04/18 21:25 Dose: 25 mg Rivaroxaban (Xarelto) 20 mg PO DAILY [facility] Last Admin: 01/05/18 10:54 Dose: 20 mg Rosuvastatin Calcium (Crestor) 5 mg PO HS [facility] Last Admin: 01/04/18 21:25 Dose: 5 mg Saccharomyces Boulardii (Florastor) 250 mg PO BID [facility] Tamsulosin HCl (Flomax) 0.4 mg PO DAILY [facility] Last Admin: 01/05/18 10:54 Dose: 0.4 mg - Labs Labs: 01/03/18 09:03 01/03/18 09:03 - Constitutional Appears: Well - Head Exam Head Exam: ATRAUMATIC, NORMAL INSPECTION, NORMOCEPHALIC - Eye Exam Eye Exam: EOMI, Normal appearance, PERRL Pupil Exam: NORMAL ACCOMODATION, PERRL - ENT Exam ENT Exam: Mucous Membranes Moist, Normal Exam - Neck Exam Neck Exam: Full ROM, Normal Inspection. absent: Lymphadenopathy - Respiratory Exam Respiratory Exam: Decreased Breath Sounds - Cardiovascular Exam Cardiovascular Exam: REGULAR RHYTHM, +S1, +S2 - GI/Abdominal Exam GI & Abdominal Exam: Soft, Diminished Bowel Sounds - Rectal Exam Rectal Exam: Deferred
[2018-01-05] MEDS: Saccharomyces Boulardi 250 mg Cap PO SCH (17:09)
[2018-01-05] MEDS: Digoxin 250 mcg (0.25 mg) Tab PO SCH (17:10)
[2018-01-05 18:11] LABS: SQUAMOUS EPITHIAL < 1 /hpf (0-5); URINE BACTERIA RARE (<OCC); URINE BILIRUBIN NEGATIVE (NEGATIVE); URINE BLOOD NEGATIVE (NEGATIVE); URINE CLARITY Clear (Clear); URINE COLOR Yellow (YELLOW); URINE GLUCOSE (UA) 1+ mg/dL (Normal); URINE LEUKOCYTE ESTERASE NEG Leu/uL (Negative); URINE PROTEIN 1+ mg/dL (NEGATIVE); URINE UROBILINOGEN NORMAL mg/dL (0.2-1.0)
[2018-01-06] MEDS: Sodium Chloride 0.9% 1,000 ML IV SCH ×2 (05:27→07:33)
[2018-01-06] MEDS: Meropenem 1 GM in Sodium Chloride 0.9% 100 ML IVPB SCH ×3 (06:08→21:51)
[2018-01-06] MEDS: Levothyroxine 25 MCG TAB PO SCH (06:08)
[2018-01-06 06:25] LABS: BASO % 0.1 % (0.0-2.0); EOS # 0.1 K/uL (0.0-0.7); EOS % 0.7 % (0.0-4.0); HEMOGLOBIN 10.5 g/dL (12.0-18.0); LYMPH # 1.7 K/uL (1.0-4.3); LYMPH % 18.9 % (20.0-40.0); MEAN CELL VOLUME 86.8 fL (80.0-94.0); MEAN CORPUSCULAR HEMOGLOBIN 30.3 pg (27.0-31.0); MEAN CORPUSCULAR HGB CONC 34.9 g/dL (33.0-37.0); MEAN PLATELET VOLUME 7.5 fL (7.2-11.7); MONO # 0.9 K/uL (0.0-0.8); MONO % 10.5 % (0.0-10.0); NEUT # 6.1 K/uL (1.8-7.0); NEUT % 69.8 % (50.0-75.0); RBC 3.47 Mil/uL (4.40-5.90); RED CELL DISTRIBUTION WIDTH 13.6 % (11.5-14.5); WHITE BLOOD COUNT 8.8 K/uL (4.8-10.8)
[2018-01-06 06:53] LABS: ALB/GLOB RATIO 0.8 (1.0-2.1); ALBUMIN 2.7 g/dL (3.5-5.0); ALT/SGPT 46 U/L (21-72); BLOOD UREA NITROGEN 13 mg/dL (9-20); GFR AFRICAN-AMERICAN > 60; GFR NON-AFRICAN AMERICAN > 60
[2018-01-06 07:34] LABS: AST/SGOT 54 U/L (17-59); CALCIUM 7.5 mg/dl (8.6-10.4)
[2018-01-06] MEDS: Pantoprazole 20 mg EC Tab PO SCH (10:50)
[2018-01-06] MEDS: Azithromycin 500 MG in Sodium Chloride 0.9% 250 ML IVPB SCH (10:51)
[2018-01-06] MEDS: Saccharomyces Boulardi 250 mg Cap PO SCH ×2 (10:51→17:37)
--- NOTE | 2018-01-06 15:40 | CP.PCM.PN ---
Subjective - Date & Time of Evaluation Date of Evaluation: 01/06/18 Time of Evaluation: 07:00 - Subjective Subjective: + ESBL blood source unclear- cxr neg, U/A wnl consider GI source- recc- GI eval as well as echo Objective - Vital Signs/Intake and Output Vital Signs (last 24 hours): Temp Pulse Resp BP Pulse Ox 98.0 F 89 20 148/80 97 01/06/18 07:00 01/06/18 07:00 01/06/18 07:00 01/06/18 10:51 01/06/18 07:00 Intake and Output: 01/06/18 01/06/18 06:59 18:59 Intake Total 700 Output Total 300 Balance 400 - Medications Medications: Current Medications Aspirin (Ecotrin) 81 mg PO DAILY [facility] Last Admin: 01/06/18 10:50 Dose: 81 mg Digoxin (Lanoxin) 0.25 mg PO DAILY@1800 [facility] Last Admin: 01/05/18 17:10 Dose: 0.25 mg Donepezil HCl (Aricept) 5 mg PO DAILY [facility] Last Admin: 01/06/18 10:50 Dose: 5 mg Enalapril Maleate (Vasotec) 20 mg PO DAILY [facility] Last Admin: 01/06/18 10:50 Dose: 20 mg Ergocalciferol (Drisdol 50,000 Intl Units Cap) 1 cap PO QWK [facility] Furosemide (Lasix) 20 mg PO DAILY [facility] Last Admin: 01/06/18 10:51 Dose: 20 mg Azithromycin 500 mg/ Sodium (Chloride) 250 mls @ 167 mls/hr IVPB DAILY [facility] PRN Reason: Protocol Last Admin: 01/06/18 10:51 Dose: 167 mls/hr Meropenem 1 gm/ Sodium (Chloride) 100 mls @ 100 mls/hr IVPB Q8 [facility] PRN Reason: Protocol Stop: 01/06/18 22:59 Last Admin: 01/06/18 14:42 Dose: 100 mls/hr Levothyroxine Sodium (Synthroid) 25 mcg PO DAILY@0630 [facility] Last Admin: 01/06/18 06:08 Dose: 25 mcg Lisinopril (Zestril) 40 mg PO DAILY [facility] Last Admin: 01/06/18 10:49 Dose: 40 mg Metformin HCl (Glucophage) 500 mg PO BID [facility] Last Admin: 01/06/18 10:50 Dose: 500 mg Metoprolol Tartrate (Lopressor) 25 mg PO BID [facility] Last Admin: 01/06/18 10:50 Dose: 25 mg Pantoprazole Sodium (Protonix Ec Tab) 20 mg PO DAILY [facility] Last Admin: 01/06/18 10:50 Dose: 20 mg Quetiapine Fumarate (Seroquel) 25 mg PO HS [facility] Last Admin: 01/05/18 21:42 Dose: 25 mg Rivaroxaban (Xarelto) 20 mg PO DAILY [facility] Last Admin: 01/06/18 10:51 Dose: 20 mg Rosuvastatin Calcium (Crestor) 5 mg PO HS [facility] Last Admin: 01/05/18 21:42 Dose: 5 mg Saccharomyces Boulardii (Florastor) 250 mg PO BID [facility] Last Admin: 01/06/18 10:51 Dose: 250 mg Tamsulosin HCl (Flomax) 0.4 mg PO DAILY [facility] Last Admin: 01/06/18 10:51 Dose: 0.4 mg - Labs Labs: 01/06/18 06:17 01/06/18 06:17 - Constitutional Appears: Non-toxic, Chronically Ill - Head Exam Head Exam: NORMOCEPHALIC - Eye Exam Eye Exam: PERRL - ENT Exam ENT Exam: Mucous Membranes Dry - Neck Exam Neck Exam: absent: Lymphadenopathy - Respiratory Exam Respiratory Exam: Decreased Breath Sounds - Cardiovascular Exam Cardiovascular Exam: REGULAR RHYTHM - GI/Abdominal Exam GI & Abdominal Exam: Distended - Rectal Exam Rectal Exam: Deferred - Exam Exam: NORMAL INSPECTION Assessment and Plan - Assessment and Plan (Free Text) Plan: bacteremia / sepsis source unclear cont merrem check Echo recc GI eval
[2018-01-06] MEDS: Digoxin 250 mcg (0.25 mg) Tab PO SCH (17:36)
--- NOTE | 2018-01-06 18:00 | CP.PCM.PN ---
Subjective - Date & Time of Evaluation Date of Evaluation: 01/06/18 Time of Evaluation: 13:00 - Subjective Subjective: Patient seen and examined at bedside today. Patient resting comfortably in no acute distress. Review of systems unobtainable due to mental status. Assessment/ Plan: 1. Bacteremia - Blood Cultures from 01/03 positive for Gram Negative Bacteria - Urine Cultures from 01/03 negative - Tmax 101.7F on admission on 01/03 - Continue Meropenem - Continue Azithromycin - Management per primary team 2. Pneumonia - CXR 01/03: No acute pulmonary disease - No leukocytosis on admission, awaiting repeat CBC 3. Atrial Fibrillation - Management per primary team 4. CHF - Management per primary team 5. Dementia - Management per primary team Objective - Vital Signs/Intake and Output Vital Signs (last 24 hours): Temp Pulse Resp BP Pulse Ox 98.9 F 86 20 163/81 H 97 01/06/18 15:00 01/06/18 15:00 01/06/18 15:00 01/06/18 17:36 01/06/18 15:00 Intake and Output: 01/06/18 01/06/18 06:59 18:59 Intake Total 700 Output Total 300 Balance 400 - Medications Medications: Current Medications Aspirin (Ecotrin) 81 mg PO DAILY [facility] Last Admin: 01/06/18 10:50 Dose: 81 mg Digoxin (Lanoxin) 0.25 mg PO DAILY@1800 [facility] Last Admin: 01/06/18 17:36 Dose: 0.25 mg Donepezil HCl (Aricept) 5 mg PO DAILY [facility] Last Admin: 01/06/18 10:50 Dose: 5 mg Enalapril Maleate (Vasotec) 20 mg PO DAILY [facility] Last Admin: 01/06/18 10:50 Dose: 20 mg Ergocalciferol (Drisdol 50,000 Intl Units Cap) 1 cap PO QWK [facility] Furosemide (Lasix) 20 mg PO DAILY [facility] Last Admin: 01/06/18 10:51 Dose: 20 mg Azithromycin 500 mg/ Sodium (Chloride) 250 mls @ 167 mls/hr IVPB DAILY [facility] PRN Reason: Protocol Last Admin: 01/06/18 10:51 Dose: 167 mls/hr Meropenem 1 gm/ Sodium (Chloride) 100 mls @ 100 mls/hr IVPB Q8 [facility] PRN Reason: Protocol Stop: 01/06/18 22:59 Last Admin: 01/06/18 14:42 Dose: 100 mls/hr Levothyroxine Sodium (Synthroid) 25 mcg PO DAILY@0630 [facility] Last Admin: 01/06/18 06:08 Dose: 25 mcg Lisinopril (Zestril) 40 mg PO DAILY [facility] Last Admin: 01/06/18 10:49 Dose: 40 mg Metformin HCl (Glucophage) 500 mg PO BID [facility] Last Admin: 01/06/18 17:36 Dose: 500 mg Metoprolol Tartrate (Lopressor) 25 mg PO BID [facility] Last Admin: 01/06/18 17:36 Dose: 25 mg Pantoprazole Sodium (Protonix Ec Tab) 20 mg PO DAILY [facility] Last Admin: 01/06/18 10:50 Dose: 20 mg Quetiapine Fumarate (Seroquel) 25 mg PO HS [facility] Last Admin: 01/05/18 21:42 Dose: 25 mg Rivaroxaban (Xarelto) 20 mg PO DAILY [facility] Last Admin: 01/06/18 10:51 Dose: 20 mg Rosuvastatin Calcium (Crestor) 5 mg PO [facility] Last Admin: 01/05/18 21:42 Dose: 5 mg Saccharomyces Boulardii (Florastor) 250 mg PO BID [facility] Last Admin: 01/06/18 17:37 Dose: 250 mg Tamsulosin HCl (Flomax) 0.4 mg PO DAILY [facility] Last Admin: 01/06/18 10:51 Dose: 0.4 mg - Labs Labs: 01/06/18 06:17 01/06/18 06:17
--- NOTE | 2018-01-06 19:11 | CP.PCM.PN ---
Subjective - Date & Time of Evaluation Date of Evaluation: 01/06/18 Time of Evaluation: 12:40 - Subjective Subjective: clinically same Objective - Vital Signs/Intake and Output Vital Signs (last 24 hours): Temp Pulse Resp BP Pulse Ox 98.9 F 86 20 163/81 H 97 01/06/18 15:00 01/06/18 15:00 01/06/18 15:00 01/06/18 17:36 01/06/18 15:00 - Medications Medications: Current Medications Aspirin (Ecotrin) 81 mg PO DAILY [facility] Last Admin: 01/06/18 10:50 Dose: 81 mg Digoxin (Lanoxin) 0.25 mg PO DAILY@1800 [facility] Last Admin: 01/06/18 17:36 Dose: 0.25 mg Donepezil HCl (Aricept) 5 mg PO DAILY [facility] Last Admin: 01/06/18 10:50 Dose: 5 mg Enalapril Maleate (Vasotec) 20 mg PO DAILY [facility] Last Admin: 01/06/18 10:50 Dose: 20 mg Ergocalciferol (Drisdol 50,000 Intl Units Cap) 1 cap PO QWK [facility] Furosemide (Lasix) 20 mg PO DAILY [facility] Last Admin: 01/06/18 10:51 Dose: 20 mg Azithromycin 500 mg/ Sodium (Chloride) 250 mls @ 167 mls/hr IVPB DAILY [facility] PRN Reason: Protocol Last Admin: 01/06/18 10:51 Dose: 167 mls/hr Meropenem 1 gm/ Sodium (Chloride) 100 mls @ 100 mls/hr IVPB Q8 [facility] PRN Reason: Protocol Stop: 01/06/18 22:59 Last Admin: 01/06/18 14:42 Dose: 100 mls/hr Levothyroxine Sodium (Synthroid) 25 mcg PO DAILY@0630 [facility] Last Admin: 01/06/18 06:08 Dose: 25 mcg Lisinopril (Zestril) 40 mg PO DAILY [facility] Last Admin: 01/06/18 10:49 Dose: 40 mg Metformin HCl (Glucophage) 500 mg PO BID [facility] Last Admin: 01/06/18 17:36 Dose: 500 mg Metoprolol Tartrate (Lopressor) 25 mg PO BID [facility] Last Admin: 01/06/18 17:36 Dose: 25 mg Pantoprazole Sodium (Protonix Ec Tab) 20 mg PO DAILY [facility] Last Admin: 01/06/18 10:50 Dose: 20 mg Quetiapine Fumarate (Seroquel) 25 mg PO HS [facility] Last Admin: 01/05/18 21:42 Dose: 25 mg Rivaroxaban (Xarelto) 20 mg PO DAILY [facility] Last Admin: 01/06/18 10:51 Dose: 20 mg Rosuvastatin Calcium (Crestor) 5 mg PO HS [facility] Last Admin: 01/05/18 21:42 Dose: 5 mg Saccharomyces Boulardii (Florastor) 250 mg PO BID [facility] Last Admin: 01/06/18 17:37 Dose: 250 mg Tamsulosin HCl (Flomax) 0.4 mg PO DAILY [facility] Last Admin: 01/06/18 10:51 Dose: 0.4 mg - Labs Labs: 01/06/18 06:17 01/06/18 06:17 - Constitutional Appears: Well - Head Exam Head Exam: ATRAUMATIC, NORMAL INSPECTION, NORMOCEPHALIC - Eye Exam Eye Exam: EOMI, Normal appearance, PERRL Pupil Exam: NORMAL ACCOMODATION, PERRL - ENT Exam ENT Exam: Mucous Membranes Moist, Normal Exam - Neck Exam Neck Exam: Full ROM, Normal Inspection. absent: Lymphadenopathy - Respiratory Exam Respiratory Exam: Decreased Breath Sounds - Cardiovascular Exam Cardiovascular Exam: REGULAR RHYTHM, +S1, +S2 - GI/Abdominal Exam GI & Abdominal Exam: Soft, Diminished Bowel Sounds - Rectal Exam Rectal Exam: Deferred
[2018-01-07] MEDS: Levothyroxine 25 MCG TAB PO SCH (05:31)
[2018-01-07] MEDS ORDERED: PREMIXED IVP ONE (08:00)
[2018-01-07] MEDS ORDERED: HEPARIN IVP ONE (08:00)
[2018-01-07] MEDS: Saccharomyces Boulardi 250 mg Cap PO SCH ×2 (10:22→18:05)
[2018-01-07] MEDS: Pantoprazole 20 mg EC Tab PO SCH (10:25)
[2018-01-07] MEDS: Azithromycin 500 MG in Sodium Chloride 0.9% 250 ML IVPB SCH (11:35)
--- NOTE | 2018-01-07 13:51 | CARD ---
APPROVED REPORT EXAM: Two-dimensional and M-mode echocardiogram with Doppler and color Doppler. Other Information Quality : GoodRhythm : INDICATION Atrial Fibrillation Infection:Rule out subacute bacterial endocarditis Chest Pain Congestive Heart Failure 2D DIMENSIONS IVSd1.1 (0.7-1.1cm)LVDd4.8 (3.9-5.9cm) PWd0.9 (0.7-1.1cm)LVDs3.3 (2.5-4.0cm) FS (%) 31.1 % M-Mode DIMENSIONS Left Atrium (MM)5.74 (2.5-4.0cm)Aortic Root3.77 (2.2-3.7cm) Aortic Cusp Exc.2.39 (1.5-2.0cm) Mitral Valve MV E [id number]/sE/A ratio0.0 TDI E/Lateral E'0.0E/Medial E'0.0 Tricuspid Valve TR Peak [id number]/sTR Peak [id number] LEFT VENTRICLE The left ventricle is normal size. There is normal left ventricular wall thickness. Left ventricle is moderately to severely impaired. The Ejection Fraction is 35-40%. Septal hypokinesis No left ventricle thrombus noted on this study. RIGHT VENTRICLE The right ventricle is normal size. There is normal right ventricular wall thickness. The right ventricular systolic function is normal. ATRIA The left atrium size is normal. The right atrium size is normal. AORTIC VALVE The aortic valve is severely thickened. No aortic regurgitation is present. There is no aortic valvular stenosis. MITRAL VALVE The mitral valve is mildly thickened. Mitral regurgitation is trace. TRICUSPID VALVE There is mild pulmonary hypertension. GREAT VESSELS The aortic root is normal in size. <Conclusion> The left ventricle is normal size. There is normal left ventricular wall thickness. Left ventricle is moderately to severely impaired. The Ejection Fraction is 35-40%. Septal hypokinesis The aortic valve is severely thickened. There is mild pulmonary hypertension.
--- NOTE | 2018-01-07 16:08 | CP.PCM.PN ---
Subjective - Date & Time of Evaluation Date of Evaluation: 01/07/18 Time of Evaluation: 09:00 - Subjective Subjective: 82 yo male with ESBL E Coli bacteremia and unknown source urine was neg and blood c/s + on [address] abd showed ? cysts in liver but no definite abscess recc : GI eval and Ceretec scan Objective - Vital Signs/Intake and Output Vital Signs (last 24 hours): Temp Pulse Resp BP Pulse Ox 98.0 F 60 18 130/75 97 01/07/18 08:34 01/07/18 11:41 01/07/18 11:41 01/07/18 11:41 01/07/18 08:34 Intake and Output: 01/07/18 01/07/18 06:59 18:59 Intake Total 200 Output Total 675 Balance -475 - Medications Medications: Current Medications Aspirin (Ecotrin) 81 mg PO DAILY [facility] Last Admin: 01/07/18 10:22 Dose: 81 mg Digoxin (Lanoxin) 0.25 mg PO DAILY@1800 [facility] Last Admin: 01/06/18 17:36 Dose: 0.25 mg Donepezil HCl (Aricept) 5 mg PO DAILY [facility] Last Admin: 01/07/18 10:22 Dose: 5 mg Enalapril Maleate (Vasotec) 20 mg PO DAILY [facility] Last Admin: 01/07/18 10:21 Dose: 20 mg Ergocalciferol (Drisdol 50,000 Intl Units Cap) 1 cap PO QWK [facility] Furosemide (Lasix) 20 mg PO DAILY [facility] Last Admin: 01/07/18 10:22 Dose: 20 mg Levothyroxine Sodium (Synthroid) 25 mcg PO DAILY@0630 [facility] Last Admin: 01/07/18 05:31 Dose: 25 mcg Lisinopril (Zestril) 40 mg PO DAILY [facility] Last Admin: 01/07/18 11:34 Dose: 40 mg Metformin HCl (Glucophage) 500 mg PO BID [facility] Last Admin: 01/07/18 10:25 Dose: 500 mg Metoprolol Tartrate (Lopressor) 25 mg PO BID [facility] Last Admin: 01/07/18 10:22 Dose: 25 mg Pantoprazole Sodium (Protonix Ec Tab) 20 mg PO DAILY [facility] Last Admin: 01/07/18 10:25 Dose: 20 mg Quetiapine Fumarate (Seroquel) 25 mg PO HS [facility] Last Admin: 01/06/18 21:53 Dose: 25 mg Rivaroxaban (Xarelto) 20 mg PO DAILY [facility] Last Admin: 01/07/18 10:22 Dose: 20 mg Rosuvastatin Calcium (Crestor) 5 mg PO [facility] Last Admin: 01/06/18 21:53 Dose: 5 mg Saccharomyces Boulardii (Florastor) 250 mg PO BID [facility] Last Admin: 01/07/18 10:22 Dose: 250 mg Tamsulosin HCl (Flomax) 0.4 mg PO DAILY [facility] Last Admin: 01/07/18 10:22 Dose: 0.4 mg - Labs Labs: 01/06/18 06:17 01/06/18 06:17 - Constitutional Appears: Non-toxic, Confused - Head Exam Head Exam: NORMOCEPHALIC - Eye Exam Eye Exam: PERRL - ENT Exam ENT Exam: Mucous Membranes Dry - Neck Exam Neck Exam: absent: Lymphadenopathy - Respiratory Exam Respiratory Exam: Decreased Breath Sounds - Cardiovascular Exam Cardiovascular Exam: REGULAR RHYTHM - GI/Abdominal Exam GI & Abdominal Exam: Distended, Soft - Rectal Exam Rectal Exam: Deferred - Exam Exam: NORMAL INSPECTION Assessment and Plan (1) Sepsis Status: Acute (2) Congestive heart failure Status: Acute
[2018-01-07 17:31] VITALS: RESP 20
--- NOTE | 2018-01-07 17:39 | CP.PCM.PN ---
Subjective - Date & Time of Evaluation Date of Evaluation: 01/07/18 Time of Evaluation: 09:00 - Subjective Subjective: Patient seen and examined at bedside today. Patient resting comfortably in no acute distress. Review of systems unobtainable due to mental status. Patient had an Echo today, awaiting results. Son and daughter present at bedside upset because they thought patient was going home today. Assessment/ Plan: 1. Bacteremia - Blood Cultures from 01/03 positive for E.Coli - Urine Cultures from 01/03 negative - Repeat Blood Cultures from 01/05 currently no growth - Tmax 101.7F on admission on 01/03 - Meropenem discontinued by ID - Continue Azithromycin - Management per primary team 2. Pneumonia, resolving - CXR 01/03: No acute pulmonary disease - No leukocytosis on admission, awaiting repeat CBC 3. Atrial Fibrillation - Management per primary team 4. CHF - Management per primary team 5. Dementia - Management per primary team Objective - Vital Signs/Intake and Output Vital Signs (last 24 hours): Temp Pulse Resp BP Pulse Ox 98.7 F 71 20 167/99 H 98 01/07/18 15:00 01/07/18 15:00 01/07/18 15:00 01/07/18 15:00 01/07/18 15:00 Intake and Output: 01/07/18 01/07/18 06:59 18:59 Intake Total 200 Output Total 675 Balance -475 - Medications Medications: Current Medications Aspirin (Ecotrin) 81 mg PO [facility]ILY [facility] Last Admin: 01/07/18 10:22 Dose: 81 mg Digoxin (Lanoxin) 0.25 mg PO DAILY@1800 [facility] Last Admin: 01/06/18 17:36 Dose: 0.25 mg Donepezil HCl (Aricept) 5 mg PO DAILY [facility] Last Admin: 01/07/18 10:22 Dose: 5 mg Enalapril Maleate (Vasotec) 20 mg PO DAILY [facility] Last Admin: 01/07/18 10:21 Dose: 20 mg Ergocalciferol (Drisdol 50,000 Intl Units Cap) 1 cap PO QWK [facility] Furosemide (Lasix) 20 mg PO DAILY [facility] Last Admin: 01/07/18 10:22 Dose: 20 mg Azithromycin 500 mg/ Sodium (Chloride) 250 mls @ 250 mls/hr IVPB DAILY [facility] PRN Reason: Protocol Meropenem 500 mg/ Sodium (Chloride) 100 mls @ 100 mls/hr IVPB Q8 [facility] PRN Reason: Protocol Levothyroxine Sodium (Synthroid) 25 mcg PO DAILY@0630 [facility] Last Admin: 01/07/18 05:31 Dose: 25 mcg Lisinopril (Zestril) 40 mg PO DAILY [facility] Last Admin: 01/07/18 11:34 Dose: 40 mg Metformin HCl (Glucophage) 500 mg PO BID [facility] Last Admin: 01/07/18 10:25 Dose: 500 mg Metoprolol Tartrate (Lopressor) 25 mg PO BID [facility] Last Admin: 01/07/18 10:22 Dose: 25 mg Pantoprazole Sodium (Protonix Ec Tab) 20 mg PO DAILY [facility] Last Admin: 01/07/18 10:25 Dose: 20 mg Quetiapine Fumarate (Seroquel) 25 mg PO HS [facility] Last Admin: 01/06/18 21:53 Dose: 25 mg Rivaroxaban (Xarelto) 20 mg PO DAILY [facility] Last Admin: 01/07/18 10:22 Dose: 20 mg Rosuvastatin Calcium (Crestor) 5 mg PO [facility] Last Admin: 01/06/18 21:53 Dose: 5 mg Saccharomyces Boulardii (Florastor) 250 mg PO BID [facility] Last Admin: 01/07/18 10:22 Dose: 250 mg Tamsulosin HCl (Flomax) 0.4 mg PO DAILY [facility] Last Admin: 01/07/18 10:22 Dose: 0.4 mg - Labs Labs: 01/06/18 06:17 01/06/18 06:17
--- NOTE | 2018-01-07 17:59 | CP.PCM.CON ---
<Joss Clay - Last Filed: 01/07/18 18:29> History of Present Illness - History of Present Illness History of Present Illness: PGY4 Initial GI Consult Porfirio Arredondo is a 82M w/ hx of dementia, PVD, A-fib on xarelto, Hl who presented to the Er by family for weakness and lethargy. Family states that he was not his normal self for the past few days and came to the ER for further eval. He was found to have gram neg rods in his blood. He was started on IV antibiotics. Pt had an abd Ct w/ IV contrast which revealed multiple liver cysts. The CT was compared to last CT abd in 2016 and there was minimal change in sizes of cysts. Pt is demented and all information was obtained from the family who was bedside. They note he has intermittent abd discomfort, but pt cannot specify. They deny previous hospitalization for liver related issues or juandice. 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 EGD in 2016, found to have gastritis and colonoscopy 3/4 years ago which was neg as per family. Normal Bm without melena, or BRBPR. Family notes decreased appetite for the past 5 weeks. Pt has also been having non-bloody diarrhea since starting IV abx. PMH: CAD, Cardia Arrhythmia (A FIB), Dementia, Diabetes, HTN, Hypercholesterolemia, Hypothyroidism PSHx: right carotid endarectomy Social hx: former smoker and used to consume ETOH, denies any illicit drug use Family hx: reviewed; denies any GI malignancy ROS: 12 point ROS conducted, neg other than above Past Patient History - Infectious Disease Hx of Infectious Diseases: None - Past Social History Smoking Status: Former Smoker - CARDIAC Hx Cardia Arrhythmia: Yes (A FIB) Hx Hypercholesterolemia: Yes Hx Hypertension: Yes - PULMONARY Hx Respiratory Disorders: No - NEUROLOGICAL Hx Dementia: Yes - HEENT Hx HEENT Problems: No - RENAL Hx Chronic Kidney Disease: No - ENDOCRINE/METABOLIC Hx Hypothyroidism: Yes - HEMATOLOGICAL/ONCOLOGICAL Hx Blood Disorders: No - INTEGUMENTARY Hx Dermatological Problems: No - MUSCULOSKELETAL/RHEUMATOLOGICAL Hx Musculoskeletal Disorders: No Hx Falls: No - GASTROINTESTINAL Hx Gastrointestinal Disorders: No - GENITOURINARY/GYNECOLOGICAL Hx Genitourinary Disorders: Yes Hx Prostate Problems: Yes (ENLARGED PROSTATE) - PSYCHIATRIC Hx Substance Use: No - SURGICAL HISTORY Hx Carotid Endarterectomy: Yes (RIGHT) - ANESTHESIA Hx Anesthesia: Yes Hx Anesthesia Reactions: No Hx Malignant Hyperthermia: No Meds Allergies/Adverse Reactions: Allergies Allergy/AdvReac Type Severity Reaction Status Date / Time No Known Allergies Allergy Verified 01/03/18 08:37 - Medications Medications: Current Medications Aspirin (Ecotrin) 81 mg PO DAILY [facility] Last Admin: 01/07/18 10:22 Dose: 81 mg Digoxin (Lanoxin) 0.25 mg PO DAILY@1800 [facility] Last Admin: 01/06/18 17:36 Dose: 0.25 mg Donepezil HCl (Aricept) 5 mg PO DAILY [facility] Last Admin: 01/07/18 10:22 Dose: 5 mg Enalapril Maleate (Vasotec) 20 mg PO DAILY [facility] Last Admin: 01/07/18 10:21 Dose: 20 mg Ergocalciferol (Drisdol 50,000 Intl Units Cap) 1 cap PO QWK [facility] Furosemide (Lasix) 20 mg PO DAILY [facility] Last Admin: 01/07/18 10:22 Dose: 20 mg Azithromycin 500 mg/ Sodium (Chloride) 250 mls @ 250 mls/hr IVPB DAILY [facility] PRN Reason: Protocol Meropenem 500 mg/ Sodium (Chloride) 100 mls @ 100 mls/hr IVPB Q8 [facility] PRN Reason: Protocol Levothyroxine Sodium (Synthroid) 25 mcg PO DAILY@0630 [facility] Last Admin: 01/07/18 05:31 Dose: 25 mcg Lisinopril (Zestril) 40 mg PO DAILY [facility] Last Admin: 01/07/18 11:34 Dose: 40 mg Metformin HCl (Glucophage) 500 mg PO BID [facility] Last Admin: 01/07/18 10:25 Dose: 500 mg Metoprolol Tartrate (Lopressor) 25 mg PO BID [facility] Last Admin: 01/07/18 10:22 Dose: 25 mg Pantoprazole Sodium (Protonix Ec Tab) 20 mg PO DAILY [facility] Last Admin: 01/07/18 10:25 Dose: 20 mg Quetiapine Fumarate (Seroquel) 25 mg PO HS [facility] Last Admin: 01/06/18 21:53 Dose: 25 mg Rivaroxaban (Xarelto) 20 mg PO DAILY [facility] Last Admin: 01/07/18 10:22 Dose: 20 mg Rosuvastatin Calcium (Crestor) 5 mg PO HS [facility] Last Admin: 01/06/18 21:53 Dose: 5 mg Saccharomyces Boulardii (Florastor) 250 mg PO BID [facility] Last Admin: 01/07/18 10:22 Dose: 250 mg Tamsulosin HCl (Flomax) 0.4 mg PO DAILY [facility] Last Admin: 01/07/18 10:22 Dose: 0.4 mg Physical Exam - Constitutional Appears: Well, No Acute Distress - Head Exam Head Exam: ATRAUMATIC, NORMOCEPHALIC - Eye Exam Eye Exam: Normal appearance - ENT Exam ENT Exam: Mucous Membranes Moist, Normal Exam - Neck Exam Neck exam: Positive for: Normal Inspection - Respiratory Exam Respiratory Exam: Clear to Auscultation Bilateral, NORMAL BREATHING PATTERN. absent: Rales, Rhonchi, Wheezes, Respiratory Distress - Cardiovascular Exam Cardiovascular Exam: Irregular Rhythm - GI/Abdominal Exam GI & Abdominal Exam: Normal Bowel Sounds, Soft. absent: Distended, Firm, Guarding, Organomegaly, Pulsatile Mass, Rebound, Rigid, Tenderness - Extremities Exam Extremities exam: Negative for: joint swelling, pedal edema - Neurological Exam Neurological exam: Altered - Psychiatric Exam Psychiatric exam: Normal Affect, Normal Mood - Skin Skin Exam: Dry, Intact, Normal Color, Warm Results - Vital Signs Recent Vital Signs: Last Vital Signs Temp 98.7 F 01/07/18 15:00 Pulse 71 01/07/18 15:00 Resp 20 01/07/18 15:00 BP 167/99 H 01/07/18 15:00 Pulse Ox 98 01/07/18 15:00 - Labs Result Diagrams: 01/06/18 06:17 01/06/18 06:17 Labs: Laboratory Results - last 24 hr 01/06/18 01/06/18 01/07/18 21:59 22:44 06:07 POC Glucose (mg/dL) 121 H 107 C. difficile Ag & Toxin Negative 01/07/18 01/07/18 11:38 16:59 POC Glucose (mg/dL) 170 H 112 H C. difficile Ag & Toxin Assessment & Plan - Assessment and Plan (Free Text) Assessment: Porfirio Arredondo is a 82M w/ hx of dementia, PVD, A-fib on xarelto, Hl who presented to the Er by family for weakness and lethargy. Ct abd revealed multiple liver cyst, with minimal interval change, <1cm pancreatic lesion Liver Cysts, likely simple cysts, r/o Viral Hep Diarrhea, likely abx induced, r/o infectious etiology Dementia Plan: -will get hep viral serology -if postive, will need triple phase LIver CT -cysts are likely simple based on imaging -c.diff neg -recommend stool culture -continue abx as per ID -growing E.coli in blood cultyre, repeat pending -no further indication of additional GI procedures D/W Dr. Dang <Yobani Dang Y - Last Filed: 01/07/18 18:42> Meds - Medications Medications: Current Medications Aspirin (Ecotrin) 81 mg PO DAILY [facility] Last Admin: 01/07/18 10:22 Dose: 81 mg Digoxin (Lanoxin) 0.25 mg PO DAILY@1800 [facility] Last Admin: 01/07/18 18:06 Dose: 0.25 mg Donepezil HCl (Aricept) 5 mg PO DAILY [facility] Last Admin: 01/07/18 10:22 Dose: 5 mg Enalapril Maleate (Vasotec) 20 mg PO DAILY [facility] Last Admin: 01/07/18 10:21 Dose: 20 mg Ergocalciferol (Drisdol 50,000 Intl Units Cap) 1 cap PO QWK [facility] Furosemide (Lasix) 20 mg PO DAILY [facility] Last Admin: 01/07/18 10:22 Dose: 20 mg Azithromycin 500 mg/ Sodium (Chloride) 250 mls @ 250 mls/hr IVPB DAILY [facility] PRN Reason: Protocol Meropenem 500 mg/ Sodium (Chloride) 100 mls @ 100 mls/hr IVPB Q8 [facility] PRN Reason: Protocol Levothyroxine Sodium (Synthroid) 25 mcg PO DAILY@0630 [facility] Last Admin: 01/07/18 05:31 Dose: 25 mcg Lisinopril (Zestril) 40 mg PO DAILY [facility] Last Admin: 01/07/18 11:34 Dose: 40 mg Metformin HCl (Glucophage) 500 mg PO BID [facility] Last Admin: 01/07/18 18:06 Dose: 500 mg Metoprolol Tartrate (Lopressor) 25 mg PO BID [facility] Last Admin: 01/07/18 18:05 Dose: 25 mg Pantoprazole Sodium (Protonix Ec Tab) 20 mg PO DAILY [facility] Last Admin: 01/07/18 10:25 Dose: 20 mg Quetiapine Fumarate (Seroquel) 25 mg PO [facility] Last Admin: 01/06/18 21:53 Dose: 25 mg Rivaroxaban (Xarelto) 20 mg PO DAILY [facility] Last Admin: 01/07/18 10:22 Dose: 20 mg Rosuvastatin Calcium (Crestor) 5 mg PO HS [facility] Last Admin: 01/06/18 21:53 Dose: 5 mg Saccharomyces Boulardii (Florastor) 250 mg PO BID [facility] Last Admin: 01/07/18 18:05 Dose: 250 mg Tamsulosin HCl (Flomax) 0.4 mg PO DAILY [facility] Last Admin: 01/07/18 10:22 Dose: 0.4 mg Results - Vital Signs Recent Vital Signs: Last Vital Signs Temp 98.7 F 01/07/18 15:00 Pulse 71 01/07/18 15:00 Resp 20 01/07/18 15:00 BP 167/99 H 01/07/18 18:05 Pulse Ox 98 01/07/18 15:00 - Labs Result Diagrams: 01/06/18 06:17 01/06/18 06:17 Labs: Laboratory Results - last 24 hr 01/06/18 01/06/18 01/07/18 21:59 22:44 06:07 POC Glucose (mg/dL) 121 H 107 C. difficile Ag & Toxin Negative 01/07/18 01/07/18 11:38 16:59 POC Glucose (mg/dL) 170 H 112 H C. difficile Ag & Toxin Attending/Attestation - Attestation I have personally seen and examined this patient.: Yes I have fully participated in the care of the patient.: Yes I have reviewed all pertinent clinical information: Yes Notes (Text): 01/07/18 18:36 I have seen and examined patient with GI fellow. Agree with above documentation with the following additions. In brief, this is an 82 year old male with history of dementia, atrial fibrillation on xarelto, who presented to hospital with complaint of progressive fatigue and lethargy. On arrival to hospital he was found to be bacteremic and undergoing antibiotic therapy. GI called for evaluation of hepatic cystic disease seen on CT imaging. Patient himself is not able to participate in detailed conversation, additional history obtained from patient's daughter at bedside and further chart review and discussion with nursing staff. He apparently has experienced decreased appetite over the past one month but there is no reported abdominal pain, nausea , vomiting, diarrhea, fever/chills, weight loss, jaundice, pruritis. He had an EGD in 2016 which showed gastritis, prior colonoscopy 3-4 years ago normal as per family members. Dementia Atrial fibrillation on xarelto Bacteremia - ecoli CT imaging reviewed by me showing multiple hepatic cystic lesions, similar in size to prior imaging from 2 years ago - Diet as tolerated - Continue with antibiotic therapy as per ID - LFTs normal, continue to monitor - Obtain viral hepatitis panel - Hepatic lesions did not enhance on contrast imaging, no concern for abscess or infectious liver process - Will continue to monitor patient clinical course
[2018-01-07 18:06] VITALS: PULSE 70
[2018-01-07] MEDS: Digoxin 250 mcg (0.25 mg) Tab PO SCH (18:06)
--- NOTE | 2018-01-07 18:27 | CP.PCM.PN ---
Subjective - Date & Time of Evaluation Date of Evaluation: 01/07/18 Time of Evaluation: 10:40 - Subjective Subjective: clinically same Objective - Vital Signs/Intake and Output Vital Signs (last 24 hours): Temp Pulse Resp BP Pulse Ox 98.7 F 71 20 167/99 H 98 01/07/18 15:00 01/07/18 15:00 01/07/18 15:00 01/07/18 18:05 01/07/18 15:00 Intake and Output: 01/07/18 01/07/18 06:59 18:59 Intake Total 200 Output Total 675 Balance -475 - Medications Medications: Current Medications Aspirin (Ecotrin) 81 mg PO DAILY [facility] Last Admin: 01/07/18 10:22 Dose: 81 mg Digoxin (Lanoxin) 0.25 mg PO DAILY@1800 [facility] Last Admin: 01/07/18 18:06 Dose: 0.25 mg Donepezil HCl (Aricept) 5 mg PO DAILY [facility] Last Admin: 01/07/18 10:22 Dose: 5 mg Enalapril Maleate (Vasotec) 20 mg PO DAILY [facility] Last Admin: 01/07/18 10:21 Dose: 20 mg Ergocalciferol (Drisdol 50,000 Intl Units Cap) 1 cap PO QWK [facility] Furosemide (Lasix) 20 mg PO DAILY [facility] Last Admin: 01/07/18 10:22 Dose: 20 mg Azithromycin 500 mg/ Sodium (Chloride) 250 mls @ 250 mls/hr IVPB DAILY [facility] PRN Reason: Protocol Meropenem 500 mg/ Sodium (Chloride) 100 mls @ 100 mls/hr IVPB Q8 [facility] PRN Reason: Protocol Levothyroxine Sodium (Synthroid) 25 mcg PO DAILY@0630 [facility] Last Admin: 01/07/18 05:31 Dose: 25 mcg Lisinopril (Zestril) 40 mg PO DAILY [facility] Last Admin: 01/07/18 11:34 Dose: 40 mg Metformin HCl (Glucophage) 500 mg PO BID [facility] Last Admin: 01/07/18 18:06 Dose: 500 mg Metoprolol Tartrate (Lopressor) 25 mg PO BID [facility] Last Admin: 01/07/18 18:05 Dose: 25 mg Pantoprazole Sodium (Protonix Ec Tab) 20 mg PO DAILY [facility] Last Admin: 01/07/18 10:25 Dose: 20 mg Quetiapine Fumarate (Seroquel) 25 mg PO HS [facility] Last Admin: 01/06/18 21:53 Dose: 25 mg Rivaroxaban (Xarelto) 20 mg PO DAILY [facility] Last Admin: 01/07/18 10:22 Dose: 20 mg Rosuvastatin Calcium (Crestor) 5 mg PO HS [facility] Last Admin: 01/06/18 21:53 Dose: 5 mg Saccharomyces Boulardii (Florastor) 250 mg PO BID [facility] Last Admin: 01/07/18 18:05 Dose: 250 mg Tamsulosin HCl (Flomax) 0.4 mg PO DAILY [facility] Last Admin: 01/07/18 10:22 Dose: 0.4 mg - Labs Labs: 01/06/18 06:17 01/06/18 06:17 - Constitutional Appears: Well - Head Exam Head Exam: ATRAUMATIC, NORMAL INSPECTION, NORMOCEPHALIC - Eye Exam Eye Exam: EOMI, Normal appearance, PERRL Pupil Exam: NORMAL ACCOMODATION, PERRL - ENT Exam ENT Exam: Mucous Membranes Moist, Normal Exam - Neck Exam Neck Exam: Full ROM, Normal Inspection. absent: Lymphadenopathy - Respiratory Exam Respiratory Exam: Decreased Breath Sounds - Cardiovascular Exam Cardiovascular Exam: REGULAR RHYTHM, +S1, +S2 - GI/Abdominal Exam GI & Abdominal Exam: Soft, Diminished Bowel Sounds - Rectal Exam Rectal Exam: Deferred
[2018-01-07 20:24] LABS: HEPATITIS B SURFACE AG Negative (NEGATIVE)
[2018-01-07 20:30] LABS: HEPATITIS A IGM NEGATIVE (NEGATIVE); HEPATITIS B CORE AB NEGATIVE (NEGATIVE)
[2018-01-07 20:42] LABS: HEPATITIS C ANTIBODY NEGATIVE (NEGATIVE)
[2018-01-07] MEDS: Meropenem 500 MG in Sodium Chloride 0.9% 100 ML IVPB SCH (21:18)
[2018-01-08] VITALS: TEMP 98.9
[2018-01-08] MEDS: Meropenem 500 MG in Sodium Chloride 0.9% 100 ML IVPB SCH ×3 (05:29→16:29)
[2018-01-08] MEDS: Levothyroxine 25 MCG TAB PO SCH (05:29)
[2018-01-08 08:46] VITALS: PULSE 80; O2SAT 95
--- NOTE | 2018-01-08 09:04 | CP.PCM.PN ---
<Catracho Clay - Last Filed: 01/08/18 08:57> Subjective - Date & Time of Evaluation Date of Evaluation: 01/08/18 Time of Evaluation: 06:55 - Subjective Subjective: Subjective: Patient seen and examined. No acute events overnight. States weakness has improved since baseline. Offers no new complaints at this time. Denies fever, chills, chest pain, SOB, abdominal pain, N/V, diarrhea, constipation. 12 point ROS negative except as indicated in HPI Physical Examination: - Constitutional Appears: Well, No Acute Distress - Head Exam Head Exam: ATRAUMATIC, NORMOCEPHALIC - Eye Exam Eye Exam: Normal appearance - ENT Exam ENT Exam: Mucous Membranes Moist, Normal Exam - Neck Exam Neck exam: Positive for: Normal Inspection - Respiratory Exam Respiratory Exam: Clear to Auscultation Bilateral, NORMAL BREATHING PATTERN. absent: Rales, Rhonchi, Wheezes, Respiratory Distress - Cardiovascular Exam Cardiovascular Exam: Irregular Rhythm - GI/Abdominal Exam GI & Abdominal Exam: Normal Bowel Sounds, Soft. absent: Distended, Firm, Guarding, Organomegaly, Pulsatile Mass, Rebound, Rigid, Tenderness - Extremities Exam Extremities exam: Negative for: joint swelling, pedal edema - Neurological Exam Neurological exam: Altered - Psychiatric Exam Psychiatric exam: Normal Affect, Normal Mood - Skin Skin Exam: Dry, Intact, Normal Color, Warm Assessment and Plan: Patient is a 82 male with a past medical history of dementia, PVD, A-fib on [facility] who was admitted to the hospital for weakness and lethargy. Abd Ct w / IV reviewed and revealed multiple liver cysts. The CT was compared to last CT abd in 2016 and there was minimal change in sizes of cysts. EGD in 2016, found to have gastritis. Liver Cysts, likely simple cysts, r/o Viral Hep Diarrhea, likely abx induced, r/o infectious etiology Dementia - hep viral serology negative - no acute GI intervention - c.diff neg - stool culture pending - continue abx as per ID - growing E.coli in blood cultyre, repeat no growth in 48 hours Thank you for the opportunity in participating in the care of this patient. Patient case reviewed with and plan approved by attending physician, Dr. Bennett. Objective - Vital Signs/Intake and Output Vital Signs (last 24 hours): Temp Pulse Resp BP Pulse Ox 98.9 F 80 20 168/86 H 95 01/08/18 08:45 01/08/18 08:45 01/08/18 08:45 01/08/18 08:45 01/08/18 08:45 - Medications Medications: Current Medications Aspirin (Ecotrin) 81 mg PO DAILY [facility] Last Admin: 01/07/18 10:22 Dose: 81 mg Digoxin (Lanoxin) 0.25 mg PO DAILY@1800 [facility] Last Admin: 01/07/18 18:06 Dose: 0.25 mg Donepezil HCl (Aricept) 5 mg PO DAILY [facility] Last Admin: 01/07/18 10:22 Dose: 5 mg Enalapril Maleate (Vasotec) 20 mg PO DAILY [facility] Last Admin: 01/07/18 10:21 Dose: 20 mg Ergocalciferol (Drisdol 50,000 Intl Units Cap) 1 cap PO QWK [facility] Furosemide (Lasix) 20 mg PO DAILY [facility] Last Admin: 01/07/18 10:22 Dose: 20 mg Azithromycin 500 mg/ Sodium (Chloride) 250 mls @ 250 mls/hr IVPB DAILY [facility] PRN Reason: Protocol Meropenem 500 mg/ Sodium (Chloride) 100 mls @ 100 mls/hr IVPB Q8 [facility] PRN Reason: Protocol Last Admin: 01/08/18 05:29 Dose: 100 mls/hr Levothyroxine Sodium (Synthroid) 25 mcg PO DAILY@0630 [facility] Last Admin: 01/08/18 05:29 Dose: 25 mcg Lisinopril (Zestril) 40 mg PO DAILY [facility] Last Admin: 01/07/18 11:34 Dose: 40 mg Metformin HCl (Glucophage) 500 mg PO BID [facility] Last Admin: 01/07/18 18:06 Dose: 500 mg Metoprolol Tartrate (Lopressor) 25 mg PO BID [facility] Last Admin: 01/07/18 18:05 Dose: 25 mg Pantoprazole Sodium (Protonix Ec Tab) 20 mg PO DAILY [facility] Last Admin: 01/07/18 10:25 Dose: 20 mg Quetiapine Fumarate (Seroquel) 25 mg PO HS [facility] Last Admin: 01/07/18 21:18 Dose: 25 mg Rivaroxaban (Xarelto) 20 mg PO DAILY [facility] Last Admin: 01/07/18 10:22 Dose: 20 mg Rosuvastatin Calcium (Crestor) 5 mg PO HS [facility] Last Admin: 01/07/18 21:18 Dose: 5 mg Saccharomyces Boulardii (Florastor) 250 mg PO BID [facility] Last Admin: 01/07/18 18:05 Dose: 250 mg Tamsulosin HCl (Flomax) 0.4 mg PO DAILY [facility] Last Admin: 01/07/18 10:22 Dose: 0.4 mg - Labs Labs: 01/06/18 06:17 01/06/18 06:17 <Michael Bennett - Last Filed: 01/08/18 09:23> Objective - Vital Signs/Intake and Output Vital Signs (last 24 hours): Temp Pulse Resp BP Pulse Ox 98.9 F 80 20 168/86 H 95 01/08/18 08:45 01/08/18 08:45 01/08/18 08:45 01/08/18 08:45 01/08/18 08:45 - Medications Medications: Current Medications Aspirin (Ecotrin) 81 mg PO DAILY [facility] Last Admin: 01/07/18 10:22 Dose: 81 mg Digoxin (Lanoxin) 0.25 mg PO DAILY@1800 [facility] Last Admin: 01/07/18 18:06 Dose: 0.25 mg Donepezil HCl (Aricept) 5 mg PO DAILY [facility] Last Admin: 01/07/18 10:22 Dose: 5 mg Enalapril Maleate (Vasotec) 20 mg PO DAILY [facility] Last Admin: 01/07/18 10:21 Dose: 20 mg Ergocalciferol (Drisdol 50,000 Intl Units Cap) 1 cap PO QWK [facility] Furosemide (Lasix) 20 mg PO DAILY [facility] Last Admin: 01/07/18 10:22 Dose: 20 mg Azithromycin 500 mg/ Sodium (Chloride) 250 mls @ 250 mls/hr IVPB DAILY [facility] PRN Reason: Protocol Meropenem 500 mg/ Sodium (Chloride) 100 mls @ 100 mls/hr IVPB Q8 [facility] PRN Reason: Protocol Last Admin: 01/08/18 05:29 Dose: 100 mls/hr Levothyroxine Sodium (Synthroid) 25 mcg PO DAILY@0630 [facility] Last Admin: 01/08/18 05:29 Dose: 25 mcg Lisinopril (Zestril) 40 mg PO DAILY [facility] Last Admin: 01/07/18 11:34 Dose: 40 mg Metformin HCl (Glucophage) 500 mg PO BID [facility] Last Admin: 01/07/18 18:06 Dose: 500 mg Metoprolol Tartrate (Lopressor) 25 mg PO BID [facility] Last Admin: 01/07/18 18:05 Dose: 25 mg Pantoprazole Sodium (Protonix Ec Tab) 20 mg PO DAILY [facility] Last Admin: 01/07/18 10:25 Dose: 20 mg Quetiapine Fumarate (Seroquel) 25 mg PO HS [facility] Last Admin: 01/07/18 21:18 Dose: 25 mg Rivaroxaban (Xarelto) 20 mg PO DAILY [facility] Last Admin: 01/07/18 10:22 Dose: 20 mg Rosuvastatin Calcium (Crestor) 5 mg PO HS [facility] Last Admin: 01/07/18 21:18 Dose: 5 mg Saccharomyces Boulardii (Florastor) 250 mg PO BID [facility] Last Admin: 01/07/18 18:05 Dose: 250 mg Tamsulosin HCl (Flomax) 0.4 mg PO DAILY [facility] Last Admin: 01/07/18 10:22 Dose: 0.4 mg - Labs Labs: 01/06/18 06:17 01/06/18 06:17 Attending/Attestation - Attestation I have personally seen and examined this patient.: Yes I have fully participated in the care of the patient.: Yes I have reviewed all pertinent clinical information, including history, physical exam and plan: Yes Notes (Text): 01/08/18 09:22 82 year old male with dementia found to have incidental liver cysts. asymptomatic.
[2018-01-08] MEDS ORDERED: Azithromycin 500 MG in Sodium Chloride 0.9% 250 ML IVPB SCH (10:00)
[2018-01-08] MEDS: Saccharomyces Boulardi 250 mg Cap PO SCH (10:56)
[2018-01-08] MEDS: Pantoprazole 20 mg EC Tab PO SCH (10:56)
[2018-01-08 10:59] VITALS: BP 168/84
--- NOTE | 2018-01-08 15:21 | CP.PCM.PN ---
Subjective - Date & Time of Evaluation Date of Evaluation: 01/08/18 Time of Evaluation: 10:50 - Subjective Subjective: Patient seen and examined at bedside today. Patient resting comfortably in no acute distress. Review of systems unobtainable due to mental status. Assessment/ Plan: 1. Bacteremia - Blood Cultures from 01/03 positive for E.Coli - Urine Cultures from 01/03 negative - Repeat Blood Cultures from 01/05 negative - Tmax 101.7F on admission on 01/03, currently afebrile - Continue Meropenem - Continue Azithromycin - Management per primary team 2. Pneumonia, resolving - Repeat CXR - No leukocytosis, WBC 01/06: 8.8 3. Atrial Fibrillation - Management per primary team 4. CHF - Management per primary team 5. Dementia - Management per primary team Objective - Vital Signs/Intake and Output Vital Signs (last 24 hours): Temp Pulse Resp BP Pulse Ox 98.9 F 80 20 168/84 H 95 01/08/18 08:45 01/08/18 08:45 01/08/18 08:45 01/08/18 10:55 01/08/18 08:45 - Medications Medications: Current Medications Aspirin (Ecotrin) 81 mg PO DAILY [facility] Last Admin: 01/08/18 10:57 Dose: 81 mg Digoxin (Lanoxin) 0.25 mg PO DAILY@1800 [facility] Last Admin: 01/07/18 18:06 Dose: 0.25 mg Donepezil HCl (Aricept) 5 mg PO DAILY [facility] Last Admin: 01/08/18 10:54 Dose: 5 mg Enalapril Maleate (Vasotec) 20 mg PO DAILY [facility] Last Admin: 01/08/18 10:55 Dose: 20 mg Ergocalciferol (Drisdol 50,000 Intl Units Cap) 1 cap PO QWK [facility] Furosemide (Lasix) 20 mg PO DAILY [facility] Last Admin: 01/08/18 10:55 Dose: 20 mg Azithromycin 500 mg/ Sodium (Chloride) 250 mls @ 250 mls/hr IVPB DAILY [facility] PRN Reason: Protocol Last Admin: 01/08/18 10:58 Dose: 250 mls/hr Meropenem 500 mg/ Sodium (Chloride) 100 mls @ 100 mls/hr IVPB Q8 JESSE PRN Reason: Protocol Last Admin: 01/08/18 14:22 Dose: 100 mls/hr Levothyroxine Sodium (Synthroid) 25 mcg PO DAILY@0630 [facility] Last Admin: 01/08/18 05:29 Dose: 25 mcg Lisinopril (Zestril) 40 mg PO DAILY [facility] Last Admin: 01/08/18 10:55 Dose: 40 mg Metformin HCl (Glucophage) 500 mg PO BID [facility] Last Admin: 01/08/18 10:55 Dose: 500 mg Metoprolol Tartrate (Lopressor) 25 mg PO BID [facility] Last Admin: 01/08/18 10:54 Dose: 25 mg Pantoprazole Sodium (Protonix Ec Tab) 20 mg PO DAILY [facility] Last Admin: 01/08/18 10:56 Dose: 20 mg Quetiapine Fumarate (Seroquel) 25 mg PO HS [facility] Last Admin: 01/07/18 21:18 Dose: 25 mg Rivaroxaban (Xarelto) 20 mg PO DAILY [facility] Last Admin: 01/08/18 10:55 Dose: 20 mg Rosuvastatin Calcium (Crestor) 5 mg PO HS [facility] Last Admin: 01/07/18 21:18 Dose: 5 mg Saccharomyces Boulardii (Florastor) 250 mg PO BID [facility] Last Admin: 01/08/18 10:56 Dose: 250 mg Tamsulosin HCl (Flomax) 0.4 mg PO DAILY [facility] Last Admin: 01/08/18 10:55 Dose: 0.4 mg - Labs Labs: 01/06/18 06:17 01/06/18 06:17
[2018-01-10] MEDS ORDERED: Ergocalciferol 50,000 Intl Units Cap PO SCH (10:00)
== END 2018-01-08 15:00 | disposition left against medical advice (07) | DRG 871 ==
LOC: C.ER 08:29 → C.9E 14:05 → C.6T 18:10 → OBSVTOIN 01-05 12:07
PROVIDERS: ADMIT Internal Medicine Nephrology; ATTEND Internal Medicine Nephrology
DX: A41.9 Sepsis, unspecified organism (principal); J18.9 Pneumonia, unspecified organism; B96.20 Unspecified Escherichia coli [E. coli] as the cause of diseases classified elsewhere; E03.9 Hypothyroidism, unspecified; E11.51 Type 2 diabetes mellitus with diabetic peripheral angiopathy without gangrene; F03.90 Unspecified dementia, unspecified severity, without behavioral disturbance, psychotic disturbance, mood disturbance, and anxiety; I11.0 Hypertensive heart disease with heart failure; I25.10 Atherosclerotic heart disease of native coronary artery without angina pectoris; I48.91 Unspecified atrial fibrillation; I50.9 Heart failure, unspecified; K76.89 Other specified diseases of liver; N40.0 Benign prostatic hyperplasia without lower urinary tract symptoms; Z87.891 Personal history of nicotine dependence

== ENCOUNTER 2018-01-29 09:30 | Inpatient (IN) | payer MEDICARE, OTHER ==
[2018-01-29 09:30] VITALS: PULSE 70; BMI 34.2
[2018-01-29 10:27] LABS: VENOUS BLOOD GAS PCO2 42 mmHg (40-60); VENOUS BLOOD GAS PO2 18 mm/Hg (30-55)
--- NOTE | 2018-01-29 10:28 | C.PDOC ---
History Of Present Illness 82 y/o M c PMHx HTN, HLD, thyroid disease, CAD, Afib, dementia p/w vomiting, diarrhea, and general weakness x 2 days. Daughter in law at bedside states patient vomiting only a small amount of saliva. Diarrhea nonbloody. Patient denies fever, abdominal pain, dyspnea. Patient in this hospital 2 weeks ago with UTI. PMD [place] Time Seen by Provider: 01/29/18 09:45 Chief Complaint (Nursing): Abdominal Pain Past Medical History Vital Signs: Last Vital Signs Temp 98.7 F 01/29/18 09:37 Pulse 85 01/29/18 13:33 Resp 18 01/29/18 13:33 BP 100/59 L 01/29/18 13:33 Pulse Ox 97 01/29/18 13:33 - Medical History PMH: Alzheimer's Disease, CAD, Cardia Arrhythmia (A FIB), CHF, Dementia, Diabetes, HTN, Hypercholesterolemia, Hypothyroidism Denies: Chronic Kidney Disease Surgical History: Carotid Endarterectomy (RIGHT) - [facility] Procedures CORONAR ARTERIOGR-2 CATH (09/19/13) HEAD & NECK ENDARTER NEC (09/19/13) LEFT HEART CARDIAC CATH (09/19/13) LT HEART ANGIOCARDIOGRAM (09/19/13) PROCEDURE ON SINGLE VESSEL (09/19/13) Family History: States: Unknown Family Hx - Social History Hx Tobacco Use: No Hx Alcohol Use: No Hx Substance Use: No - Immunization History Hx Tetanus Toxoid Vaccination: No Hx Influenza Vaccination: Yes (10/2017) Hx Pneumococcal Vaccination: Yes (10/2017) Review Of Systems Except As Marked, All Systems Reviewed And Found Negative. Constitutional: Negative for: Fever Respiratory: Negative for: Shortness of Breath Physical Exam - Physical Exam Additional Physical Exam Comments: Constitutional: No acute distress. Head: Normocephalic. Atraumatic. Eyes: PERRL. ENT: Moist mucous membranes. Neck: Supple. Cardiovascular: Irregular. Radial pulse 2+ bilaterally. Chest: No tenderness. Respiratory: Clear to auscultation bilaterally. GI: Soft. Lower abdominal tenderness. Back: No CVA tenderness. Musculoskeletal: No tenderness or swelling of extremities. Skin: No rash. Neurologic: Alert, no focal deficit. ED Course And Treatment - Laboratory Results Result Diagrams: 01/29/18 10:11 01/29/18 10:11 O2 Sat by Pulse Oximetry: 95 Medical Decision Making Medical Decision Making: EKG Afib, 80 bpm, no ST elevations. Lactate 2.8. Creatinine 2.6. IMPRESSION: Evaluation of the bowel is limited in the absence of oral contrast. Allowing for this, findings are concerning for nonspecific infectious/inflammatory colitis. No bowel obstruction. No significant interval change in numerous simple and complicated hepatic cysts. Moderate enlargement of the prostate gland with median lobe hypertrophy indenting on the base of the urinary bladder with presumable bladder outlet obstruction and cystitis. Clinical correlation and follow-up is advised Dr. Clay accepts patient to his service. Antibiotics initiated. Disposition - Disposition Disposition: HOSPITALIZED Disposition Time: 12:05 Condition: GUARDED - Clinical Impression Clinical Impression: Acute renal insufficiency, Colitis
[2018-01-29 10:32] LABS: BASO % 0.2 % (0.0-2.0); EOS # 0.1 K/uL (0.0-0.7); EOS % 1.3 % (0.0-4.0); HEMOGLOBIN 12.3 g/dL (12.0-18.0); LYMPH # 1.3 K/uL (1.0-4.3); LYMPH % 15.5 % (20.0-40.0); MEAN CELL VOLUME 86.6 fL (80.0-94.0); MEAN CORPUSCULAR HEMOGLOBIN 29.4 pg (27.0-31.0); MEAN PLATELET VOLUME 7.4 fL (7.2-11.7); MONO # 0.9 K/uL (0.0-0.8); MONO % 11.2 % (0.0-10.0); NEUT # 5.9 K/uL (1.8-7.0); NEUT % 71.8 % (50.0-75.0); RBC 4.19 Mil/uL (4.40-5.90); RED CELL DISTRIBUTION WIDTH 14.4 % (11.5-14.5); WHITE BLOOD COUNT 8.2 K/uL (4.8-10.8)
[2018-01-29 10:37] LABS: INR 2.8
[2018-01-29 10:41] LABS: PROTHROMBIN TIME 30.6 SECONDS (9.7-12.2)
[2018-01-29 10:55] LABS: SQUAMOUS EPITHIAL < 1 /hpf (0-5); URINE BILIRUBIN NEGATIVE (NEGATIVE); URINE BLOOD NEGATIVE (NEGATIVE); URINE CLARITY Clear (Clear); URINE COLOR Yellow (YELLOW); URINE GLUCOSE (UA) NORMAL (Normal); URINE HYALINE CAST 0-2 /lpf (0-2); URINE LEUKOCYTE ESTERASE NEG Leu/uL (Negative); URINE PROTEIN NEGATIVE (NEGATIVE); URINE UROBILINOGEN NORMAL mg/dL (0.2-1.0)
[2018-01-29 11:01] LABS: ALB/GLOB RATIO 1.1 (1.0-2.1); ALT/SGPT 22 U/L (21-72); AST/SGOT 32 U/L (17-59); BLOOD UREA NITROGEN 45 mg/dL (9-20); CALCIUM 8.5 mg/dl (8.6-10.4); GFR AFRICAN-AMERICAN 29; GFR NON-AFRICAN AMERICAN 24
[2018-01-29 11:08] LABS: B-TYPE NATRIURETIC PEPTIDE 962 pg/mL (0-900)
--- NOTE | 2018-01-29 12:49 | CT ---
PROCEDURE: CT Abdomen and Pelvis without intravenous contrast HISTORY: Abdominal pain COMPARISON: 01/03/2018. TECHNIQUE: CT scan of the abdomen and pelvis was performed without administration of intravenous contrast. Oral contrast was not administered. Coronal and sagittal reformatted images were obtained. Radiation dose: Total exam DLP = 1126.84 mGy-cm. This CT exam was performed using one or more of the following dose reduction techniques: Automated exposure control, adjustment of the mA and/or kV according to patient size, and/or use of iterative reconstruction technique. FINDINGS: LOWER THORAX: There is redemonstration of fibrotic changes in the right lower lobe. There is mild cardiomegaly and extensive coronary artery calcifications. LIVER: Again seen is caudate lower hypertrophy and multiple variable size simple cysts in the liver, the largest septated cyst in the left hepatic lobe. There are also coarse eccentric scattered calcifications in some cysts. No intrahepatic biliary ductal dilatation. GALLBLADDER AND BILE DUCTS: No calcified gallstones. PANCREAS: Normal in size. No gross lesion or ductal dilatation. SPLEEN: Normal in size with stable punctate calcification in the lower pole. ADRENALS: No discrete nodule. KIDNEYS AND URETERS: Normal in size without nephrolithiasis. No hydronephrosis. VASCULATURE: Advanced atherosclerotic aortoiliac calcifications. No aortic aneurysm. BOWEL: The small bowel loops are normal in caliber. There is mild diffuse dilatation of fluid-filled colon. No bowel obstruction. There is mild sigmoid diverticulosis without CT evidence for acute diverticulitis. APPENDIX: Unremarkable. Normal appendix. PERITONEUM: Unremarkable. No free fluid. No free air. LYMPH NODES: Unremarkable. No enlarged lymph nodes. BLADDER: Well distended with mild apparent mild mural thickening. REPRODUCTIVE: There is moderate enlargement of the prostate gland with median lobe hypertrophy indenting on the base of the urinary bladder. BONES: No acute fracture. There is diffuse bone demineralization an exaggerated lumbar lordosis. Mild multilevel degenerative disc disease. OTHER FINDINGS: There is a large low-density calcified lesion in the right buttock, likely a calcified hematoma and densely calcified lesion in the left buttock also likely a old calcified hematoma. IMPRESSION: Evaluation of the bowel is limited in the absence of oral contrast. Allowing for this, findings are concerning for nonspecific infectious/inflammatory colitis. No bowel obstruction. No significant interval change in numerous simple and complicated hepatic cysts. Moderate enlargement of the prostate gland with median lobe hypertrophy indenting on the base of the urinary bladder with presumable bladder outlet obstruction and cystitis. Clinical correlation and follow-up is advised
[2018-01-29] MEDS ORDERED: metroNIDAZOLE IV 500 mg/100 ml 500 MG/100 ML BAG IVPB STA (12:57)
[2018-01-29] MEDS ORDERED: Ciprofloxacin 400mg/200ml D5W 400 MG/200 ML BAG IVPB STA (12:57)
[2018-01-29] MEDS ORDERED: metroNIDAZOLE IV 500 mg/100 ml 500 MG/100 ML BAG ONE (13:21)
[2018-01-29] MEDS ORDERED: Ciprofloxacin 400mg/200ml D5W 400 MG/200 ML BAG IVPB ONE (13:21)
[2018-01-29 13:41] LABS: VENOUS BLOOD GAS BASE EXCESS -2.7 mmol/L (0.0-2.0); VENOUS BLOOD GAS PCO2 40 mmHg (40-60); VENOUS BLOOD GAS PO2 16 mm/Hg (30-55); VENOUS BLOOD PH 7.36 (7.32-7.43)
--- NOTE | 2018-01-29 14:01 | RAD ---
HISTORY: Sepsis Patient COMPARISON: 01/03/2018 FINDINGS: LUNGS: No active pulmonary disease. PLEURA: No significant pleural effusion identified, no pneumothorax apparent. CARDIOVASCULAR: Normal. OSSEOUS STRUCTURES: No significant abnormalities. VISUALIZED UPPER ABDOMEN: Normal. OTHER FINDINGS: None. IMPRESSION: No active disease.
[2018-01-29] MEDS ORDERED: Sodium Chloride 0.9% 500 ML IV ONE ×4 (16:23→21:24)
[2018-01-29] MEDS ORDERED: Sodium Chloride 0.9% 1,000 ML IV ONE (17:29)
--- NOTE | 2018-01-29 17:35 | CP.PCM.CON ---
History of Present Illness - History of Present Illness History of Present Illness: 82 y/o male with pmx of CHronic systolic heart failure, h/o A-fib, h/o E. coli bacteremia presents to [facility] (formerly [facility]) with c/o abdominal pain and low BP. Patient was treated with IV cipro and flagl and given 500 ml of IVF. serial lactic revealed 2.2 and 2.9. Since lactic did not decrease adn BP did not increase, ICU was consulted. Patient seen and examined at bedside. Patient deneis any dizziness, denies any headaches, deneis any dyspnea, (+)abdominal pain, denies any dysuria. Patient being treated and was recently dischanrged with dx of E. coli bacteremia. Past Patient History - Infectious Disease Hx of Infectious Diseases: None - Past Medical History & Family History Past Medical History?: Yes Past Family History: Reviewed and not pertinent - Past Social History Smoking Status: Former Smoker Chewing Tobacco Use: No Alcohol: Occasional Drugs: Denies - CARDIAC Hx Cardia Arrhythmia: Yes (A FIB) Hx Congestive Heart Failure: Yes Hx Hypercholesterolemia: Yes Hx Hypertension: Yes - PULMONARY Hx Respiratory Disorders: No - NEUROLOGICAL Hx Alzheimer's Disease: Yes Hx Dementia: Yes - HEENT Hx HEENT Problems: No - RENAL Hx Chronic Kidney Disease: No - ENDOCRINE/METABOLIC Hx Hypothyroidism: Yes - HEMATOLOGICAL/ONCOLOGICAL Hx Blood Disorders: No - INTEGUMENTARY Hx Dermatological Problems: No - MUSCULOSKELETAL/RHEUMATOLOGICAL Hx Musculoskeletal Disorders: No Hx Falls: No - GASTROINTESTINAL Hx Gastrointestinal Disorders: No - GENITOURINARY/GYNECOLOGICAL Hx Genitourinary Disorders: Yes Hx Prostate Problems: Yes (ENLARGED PROSTATE) - PSYCHIATRIC Hx Substance Use: No - SURGICAL HISTORY Hx Carotid Endarterectomy: Yes (RIGHT) - ANESTHESIA Hx Anesthesia: Yes Hx Anesthesia Reactions: No Hx Malignant Hyperthermia: No Meds Allergies/Adverse Reactions: Allergies Allergy/AdvReac Type Severity Reaction Status Date / Time No Known Allergies Allergy Verified 01/29/18 09:47 - Medications Medications: Current Medications Sodium Chloride (Sodium Chloride 0.9%) 500 mls @ 500 mls/hr IV .Q1H ONE Stop: 01/29/18 17:40 Piperacillin Sod/Tazobactam Sod (Zosyn 2.25 Gm Iv Premix) 2.25 gm in 50 mls @ 100 mls/hr IVPB Q8H JESSE PRN Reason: Protocol Sodium Chloride (Sodium Chloride 0.9%) 1,000 mls @ 1,000 mls/hr IV .Q1H ONE Stop: 01/29/18 18:28 Physical Exam - Head Exam Head Exam: ATRAUMATIC, NORMAL INSPECTION, NORMOCEPHALIC - Eye Exam Eye Exam: EOMI Pupil Exam: NORMAL ACCOMODATION - ENT Exam ENT Exam: Mucous Membranes Moist - Neck Exam Neck exam: Positive for: Normal Inspection - Respiratory Exam Respiratory Exam: Clear to Auscultation Bilateral, NORMAL BREATHING PATTERN. absent: Rhonchi, Wheezes, Respiratory Distress, Stridor - Cardiovascular Exam Cardiovascular Exam: +S1, +S2, Systolic Murmur - GI/Abdominal Exam GI & Abdominal Exam: Normal Bowel Sounds, Soft, Tenderness. absent: Hypoactive Bowel Sounds, Rebound, Rigid - Extremities Exam Extremities exam: Negative for: pedal edema - Neurological Exam Neurological exam: Alert, Oriented x3 - Skin Skin Exam: Normal Color Results - Vital Signs Recent Vital Signs: Last Vital Signs Temp 97.6 F 01/29/18 14:10 Pulse 78 01/29/18 16:54 Resp 21 01/29/18 16:54 BP 92/54 L 01/29/18 16:54 Pulse Ox 96 01/29/18 15:15 - Labs Result Diagrams: 01/30/18 06:30 01/30/18 06:30 Labs: Laboratory Results - last 24 hr 01/29/18 01/29/18 01/29/18 10:11 10:11 10:11 WBC 8.2 RBC 4.19 L Hgb 12.3 Hct 36.3 MCV 86.6 MCH 29.4 MCHC 34.0 RDW 14.4 Plt Count 323 D MPV 7.4 Neut % (Auto) 71.8 Lymph % (Auto) 15.5 L [place] % (Auto) 11.2 H Eos % (Auto) 1.3 Baso % (Auto) 0.2 Neut # (Auto) 5.9 Lymph # (Auto) 1.3 [place] # (Auto) 0.9 H Eos # (Auto) 0.1 Baso # (Auto) 0.0 PT 30.6 H* INR 2.8 APTT 43 H pO2 VBG pH VBG pCO2 VBG HCO3 VBG Total CO2 VBG O2 Sat (Calc) VBG Base Excess VBG Potassium Glucose Lactate Sodium 137 Potassium 3.6 Chloride 97 L Carbon Dioxide 24 Anion Gap 20 BUN 45 H Creatinine 2.6 H Est GFR ( Amer) 29 Est GFR (Non-Af Amer) 24 Random Glucose 126 H Calcium 8.5 L Phosphorus 3.9 Magnesium 2.3 Total Bilirubin 0.5 AST 32 ALT 22 Alkaline Phosphatase 80 Troponin I < 0.0120 NT-Pro-B Natriuret Pep 962 H Total Protein 7.7 Albumin 4.0 Globulin 3.7 Albumin/Globulin Ratio 1.1 Venous Blood Potassium Urine Color Urine Clarity Urine pH Ur Specific [place] Urine Protein Urine Glucose (UA) Urine Ketones Urine Blood Urine Nitrate Urine Bilirubin Urine Urobilinogen Ur Leukocyte Esterase Urine WBC (Auto) Urine RBC (Auto) Ur Squamous Epith Cells Hyaline Casts Digoxin 01/29/18 01/29/18 01/29/18 10:11 10:23 10:40 WBC RBC Hgb Hct MCV MCH MCHC RDW Plt Count MPV Neut % (Auto) Lymph % (Auto) [place] % (Auto) Eos % (Auto) Baso % (Auto) Neut # (Auto) Lymph # (Auto) [place] # (Auto) Eos # (Auto) Baso # (Auto) PT INR APTT pO2 18 L VBG pH 7.40 VBG pCO2 42 VBG HCO3 23.8 VBG Total CO2 27.3 VBG O2 Sat (Calc) 31.2 L VBG Base Excess 1.0 VBG Potassium 3.5 L Glucose 124 H Lactate 2.8 H Sodium 137.0 Potassium Chloride 101.0 Carbon Dioxide Anion Gap BUN Creatinine Est GFR ( Amer) Est GFR (Non-Af Amer) Random Glucose Calcium Phosphorus Magnesium Total Bilirubin AST ALT Alkaline Phosphatase Troponin I NT-Pro-B Natriuret Pep Total Protein Albumin Globulin Albumin/Globulin Ratio Venous Blood Potassium 3.5 L Urine Color Yellow Urine Clarity Clear Urine pH 5.0 Ur Specific [place] 1.014 Urine Protein Negative Urine Glucose (UA) Normal Urine Ketones Negative Urine Blood Negative Urine Nitrate Negative Urine Bilirubin Negative Urine Urobilinogen Normal Ur Leukocyte Esterase Neg Urine WBC (Auto) 2 Urine RBC (Auto) 1 Ur Squamous Epith Cells < 1 Hyaline Casts 0-2 Digoxin < 0.4 L 01/29/18 13:37 WBC RBC Hgb Hct MCV MCH MCHC RDW Plt Count MPV Neut % (Auto) Lymph % (Auto) [place] % (Auto) Eos % (Auto) Baso % (Auto) Neut # (Auto) Lymph # (Auto) [place] # (Auto) Eos # (Auto) Baso # (Auto) PT INR APTT pO2 16 L VBG pH 7.36 VBG pCO2 40 VBG HCO3 20.7 VBG Total CO2 23.8 VBG O2 Sat (Calc) 23.6 L VBG Base Excess -2.7 L VBG Potassium 2.6 L Glucose 88 Lactate 2.9 H Sodium 137.0 Potassium Chloride 104.0 Carbon Dioxide Anion Gap BUN Creatinine Est GFR ( Amer) Est GFR (Non-Af Amer) Random Glucose Calcium Phosphorus Magnesium Total Bilirubin AST ALT Alkaline Phosphatase Troponin I NT-Pro-B Natriuret Pep Total Protein Albumin Globulin Albumin/Globulin Ratio Venous Blood Potassium 2.6 L Urine Color Urine Clarity Urine pH Ur Specific [place] Urine Protein Urine Glucose (UA) Urine Ketones Urine Blood Urine Nitrate Urine Bilirubin Urine Urobilinogen Ur Leukocyte Esterase Urine WBC (Auto) Urine RBC (Auto) Ur Squamous Epith Cells Hyaline Casts Digoxin Assessment & Plan - Assessment and Plan (Free Text) Assessment: -Sepsis without shock: start 30 ml/kg of IVF, start empirical abx for ? prostatitis, ?colittis (CT non-contrast not definitive), start IV zosyn and IV flagyl, check US abdomen -ARI: place sloan, start oral flomax, avoid ACEI, avoid other nephtotoxic drugs -Chronic systolic heart failure: hold ACI (2nd renal failure), -A-fib: continue AV krish katty and AC as tolerated -Patient remains hemodynamically stable -dvt ppx INR >2.0 -PUD ppx protonix repeat BP at bedside 107/57 with MAP >65 -advised nurse to hydrate with NS 1000 ml. -maintenance IVF at 50 ml/hr Respiration normal If lactic continues to worsen and BP remains low, will admit to ICU d/w Dr. Waggoner - Date & Time Date: 01/29/18 Time: 17:40
[2018-01-29] MEDS ORDERED: Sodium Bicarbonate 8.4% 150 MEQ in Dextrose 5% In Water 1,000 ML IV SCH ×2 (18:00→18:30)
[2018-01-29 19:11] LABS: BARBITURATES, UR NEGATIVE (NEGATIVE); BENZODIAZEPINES, UR NEGATIVE (NEGATIVE); OPIATES, UR NEGATIVE (NEGATIVE); PHENCYCLIDINE, UR NEGATIVE (NEGATIVE)
[2018-01-29] MEDS ORDERED: Ciprofloxacin 400mg/200ml D5W 400 MG/200 ML BAG IVPB SCH (20:00)
[2018-01-29] MEDS: Piperacill/Tazo 2.25gm in Dex 2.25 GM/50 ML BAG IVPB SCH (20:34)
--- NOTE | 2018-01-29 21:46 | CP.CCUPN ---
CCU Subjective - Physician Review Subjective (Free Text): 01/29/18 21:46 Attending : Gemma Clay Chief Complaint: AMS./Hypotension HPI: The hx was obtained from the patient and after review of the labs and medical records. He is an 89 years old male with hx of A Fib on Xarelto , HTN, DM and ESBL E. coli bacteremia brought to the ED with Altered mental status, nausea, vomits, abdominal pain, diarrhea and hypotension. In ED Bp 89/ 55mmHg decreased to 113/64mmHg with Lactic Acid increasing after IV fluids from 2.9 to 6.2 with stool positive for C Diff Toxins. PMH: CAD; A Fib; Dementia; DM II; HTN; Hypothyroidism; HLD; BPH; ESBL E coli Bacteremia PSH: R Carotid Endartectomy SH: Former smoker; No illegal drug use; No Alcohol; Live with family FH: States: No known family hx Exam: On stretcher with no respiratory distress Resp: Clear breath sounds CVS: S1 S2 RRR Abd: Soft Non tender, +ve bowel sounds Ext: No edema Neuro: Non Focal A&P #. Sepsis caused by the C diff colitis with the AMS elevated lactic Acid and hypotension - Consult ID - follow blood Cultures - Flagyl/Zosyn/Cipro - IV Fluids - Follow Lactic Acid - Maintain MAP 65 #. C Diff Colitis - Flagyl #. Acute Renal Failure Most likely pre-renal - IV Fluids - Follow renal labs #. DM II - Hold Metformin - Regular insulin Sliding scale according to accuchech #. A Fib - Metoprolol - Digoxin when renal labs improve - Xarelto as anticoagulant #. HTN - Metoprolol with paremeters - Vasotec on Hold - Lisinopril on hold #. DVT Prophylaxis: SCD and patient is on Xarelto #. Code Status: Full Decision made to accept the patient6 to the ICU because of the worsening Lactic Acid and the need for close monitoring. CCU Objective - Vital Signs / Intake & Output Vital Signs (Last 4 hours): Vital Signs Temp Pulse Resp BP Pulse Ox 01/29/18 21:08 82 20 113/65 100 01/29/18 20:30 94 H 18 116/61 100 01/29/18 20:17 85 18 122/62 100 01/29/18 19:05 97.7 F 89 89/55 L 01/29/18 18:35 88 18 95/48 L 01/29/18 18:08 89 22 116/57 L Intake and Output (Last 8hrs): Intake & Output 01/29/18 01/29/18 01/29/18 06:59 14:59 22:59 Output Total 350 Balance -350 Weight 180 lb Output: Urine 350 - Medications Active Medications: Active Medications Generic Name Dose Route Start Last Admin Trade Name Freq PRN Reason Stop Dose Admin Aspirin 81 mg 01/30/18 10:00 Ecotrin PO DAILY JESSE Enalapril Maleate 20 mg 01/30/18 10:00 Vasotec PO DAILY JESSE Ergocalciferol 1 cap 02/05/18 10:00 Drisdol 50,000 Intl Units Cap PO QWK JESSE Piperacillin Sod/Tazobactam Sod 2.25 gm in 50 mls @ 100 mls/hr 01/29/18 18:30 01/29/18 20:34 Zosyn 2.25 Gm Iv Premix IVPB 100 mls/hr Q8H JESSE Administration Protocol Sodium Bicarbonate 150 meq/ 1,150 mls @ 50 mls/hr 01/29/18 18:30 01/29/18 20: 27 Dextrose IV 50 mls/hr .Q23H JESSE Administration Metronidazole 500 mg in 100 mls @ 100 mls/hr 01/30/18 00:00 Flagyl IVPB Q6 JESSE Protocol Ciprofloxacin 400 mg in 200 mls @ 133 mls/hr 01/30/18 14:00 Cipro 400mg/200ml Dsw IVPB Q24H JESSE Protocol Sodium Chloride 1,000 mls @ 200 mls/hr 01/29/18 21:00 Sodium Chloride 0.9% IV 01/30/18 06:59 .Q5H JESSE Sodium Chloride 500 mls @ 1,000 mls/hr 01/29/18 21:24 01/29/18 21:38 Sodium Chloride 0.9% IV 01/29/18 21:53 1,000 mls/hr .Q30M ONE Administration Insulin Human Regular 0 unit 01/29/18 22:00 Novolin R SC ACHS JESSE Protocol Levothyroxine Sodium 25 mcg 01/30/18 06:30 Synthroid PO DAILY@0630 JESSE Lisinopril 40 mg 01/30/18 10:00 Zestril PO DAILY JESSE Metoprolol Tartrate 25 mg 01/30/18 10:00 Lopressor PO BID [facility] Pantoprazole Sodium 20 mg 01/30/18 10:00 Protonix Ec Tab PO DAILY JESSE Rivaroxaban 20 mg 01/30/18 10:00 Xarelto PO DAILY JESSE Rosuvastatin Calcium 10 mg 01/29/18 22:00 Crestor PO HS JESSE Tamsulosin HCl 0.4 mg 01/30/18 10:00 Flomax PO DAILY JESSE - Patient Studies Lab Studies: Lab Studies 01/29/18 01/29/18 01/29/18 Range/Units 19:20 18:44 18:00 WBC (4.8-10.8) K/uL RBC (4.40-5.90) Mil/uL Hgb (12.0-18.0) g/dL Hct (35.0-51.0) % MCV (80.0-94.0) fL MCH (27.0-31.0) pg MCHC (33.0-37.0) g/dL RDW (11.5-14.5) % Plt Count (130-400) K/uL MPV (7.2-11.7) fL Neut % (Auto) (50.0-75.0) % Lymph % (Auto) (20.0-40.0) % [place] % (Auto) (0.0-10.0) % Eos % (Auto) (0.0-4.0) % Baso % (Auto) (0.0-2.0) % Neut # (Auto) (1.8-7.0) K/uL Lymph # (Auto) (1.0-4.3) K/uL [place] # (Auto) (0.0-0.8) K/uL Eos # (Auto) (0.0-0.7) K/uL Baso # (Auto) (0.0-0.2) K/uL PT (9.7-12.2) SECONDS INR APTT (21-34) SECONDS pO2 (30-55) mm/Hg VBG pH (7.32-7.43) VBG pCO2 (40-60) mmHg VBG HCO3 mmol/L VBG Total CO2 (22-28) mmol/L VBG O2 Sat (Calc) (40-65) % VBG Base Excess (0.0-2.0) mmol/L VBG Potassium (3.6-5.2) mmol/L Glucose (75-110) mg/dl Lactate (0.7-2.1) mmol/L Sodium (132-148) mmol/L Potassium (3.6-5.2) mmol/L Chloride (98-107) mmol/L Carbon Dioxide (22-30) mmol/L Anion Gap (10-20) BUN (9-20) mg/dL Creatinine (0.8-1.5) mg/dL Est GFR ( Amer) Est GFR (Non-Af Amer) Random Glucose (75-110) mg/dL Lactic Acid 6.2 H* (0.7-2.1) mmol/L Calcium (8.6-10.4) mg/dl Phosphorus (2.5-4.5) mg/dL Magnesium (1.6-2.3) mg/dL Total Bilirubin (0.2-1.3) mg/dL AST (17-59) U/L ALT (21-72) U/L Alkaline Phosphatase (38-126) U/L Troponin I (0.00-0.120) ng/mL NT-Pro-B Natriuret Pep (0-900) pg/mL Total Protein (6.3-8.3) g/dL Albumin (3.5-5.0) g/dL Globulin (2.2-3.9) gm/dL Albumin/Globulin Ratio (1.0-2.1) Venous Blood Potassium (3.6-5.2) mmol/L Urine Color (YELLOW) Urine Clarity (Clear) Urine pH (5.0-8.0) Ur Specific [place] (1.003-1.030) Urine Protein (NEGATIVE) mg/dL Urine Glucose (UA) (Normal) mg/dL Urine Ketones (NEGATIVE) mg/dL Urine Blood (NEGATIVE) Urine Nitrate (NEGATIVE) Urine Bilirubin (NEGATIVE) Urine Urobilinogen (0.2-1.0) mg/dL Ur Leukocyte Esterase (Negative) [place]/uL Urine WBC (Auto) (0-5) /hpf Urine RBC (Auto) (0-3) /hpf Ur Squamous Epith Cells (0-5) /hpf Hyaline Casts (0-2) /lpf Digoxin (0.8-2.0) ng/mL Urine Opiates Screen Negative (NEGATIVE) Urine Methadone Screen Negative (NEGATIVE) Ur Barbiturates Screen Negative (NEGATIVE) Ur Phencyclidine Scrn Negative (NEGATIVE) Ur Amphetamines Screen Negative (NEGATIVE) U Benzodiazepines Scrn Negative (NEGATIVE) U Oth Cocaine Metabols Negative (NEGATIVE) U Cannabinoids Screen Negative (NEGATIVE) C. difficile Ag & Toxin Positive H (NEGATIVE) 01/29/18 01/29/18 01/29/18 Range/Units 13:37 10:40 10:23 WBC (4.8-10.8) K/uL RBC (4.40-5.90) Mil/uL Hgb (12.0-18.0) g/dL Hct (35.0-51.0) % MCV (80.0-94.0) fL MCH (27.0-31.0) pg MCHC (33.0-37.0) g/dL RDW (11.5-14.5) % Plt Count (130-400) K/uL MPV (7.2-11.7) fL Neut % (Auto) (50.0-75.0) % Lymph % (Auto) (20.0-40.0) % [place] % (Auto) (0.0-10.0) % Eos % (Auto) (0.0-4.0) % Baso % (Auto) (0.0-2.0) % Neut # (Auto) (1.8-7.0) K/uL Lymph # (Auto) (1.0-4.3) K/uL [place] # (Auto) (0.0-0.8) K/uL Eos # (Auto) (0.0-0.7) K/uL Baso # (Auto) (0.0-0.2) K/uL PT (9.7-12.2) SECONDS INR APTT (21-34) SECONDS pO2 16 L 18 L (30-55) mm/Hg VBG pH 7.36 7.40 (7.32-7.43) VBG pCO2 40 42 (40-60) mmHg VBG HCO3 20.7 23.8 mmol/L VBG Total CO2 23.8 27.3 (22-28) mmol/L VBG O2 Sat (Calc) 23.6 L 31.2 L (40-65) % VBG Base Excess -2.7 L 1.0 (0.0-2.0) mmol/L VBG Potassium 2.6 L 3.5 L (3.6-5.2) mmol/L Glucose 88 124 H (75-110) mg/dl Lactate 2.9 H 2.8 H (0.7-2.1) mmol/L Sodium 137.0 137.0 (132-148) mmol/L Potassium (3.6-5.2) mmol/L Chloride 104.0 101.0 (98-107) mmol/L Carbon Dioxide (22-30) mmol/L Anion Gap (10-20) BUN (9-20) mg/dL Creatinine (0.8-1.5) mg/dL Est GFR ( Amer) Est GFR (Non-Af Amer) Random Glucose (75-110) mg/dL Lactic Acid (0.7-2.1) mmol/L Calcium (8.6-10.4) mg/dl Phosphorus (2.5-4.5) mg/dL Magnesium (1.6-2.3) mg/dL Total Bilirubin (0.2-1.3) mg/dL AST (17-59) U/L ALT (21-72) U/L Alkaline Phosphatase (38-126) U/L Troponin I (0.00-0.120) ng/mL NT-Pro-B Natriuret Pep (0-900) pg/mL Total Protein (6.3-8.3) g/dL Albumin (3.5-5.0) g/dL Globulin (2.2-3.9) gm/dL Albumin/Globulin Ratio (1.0-2.1) Venous Blood Potassium 2.6 L 3.5 L (3.6-5.2) mmol/L Urine Color Yellow (YELLOW) Urine Clarity Clear (Clear) Urine pH 5.0 (5.0-8.0) Ur Specific [place] 1.014 (1.003-1.030) Urine Protein Negative (NEGATIVE) mg/dL Urine Glucose (UA) Normal (Normal) mg/dL Urine Ketones Negative (NEGATIVE) mg/dL Urine Blood Negative (NEGATIVE) Urine Nitrate Negative (NEGATIVE) Urine Bilirubin Negative (NEGATIVE) Urine Urobilinogen Normal (0.2-1.0) mg/dL Ur Leukocyte Esterase Neg (Negative) [place]/uL Urine WBC (Auto) 2 (0-5) /hpf Urine RBC (Auto) 1 (0-3) /hpf Ur Squamous Epith Cells < 1 (0-5) /hpf Hyaline Casts 0-2 (0-2) /lpf Digoxin (0.8-2.0) ng/mL Urine Opiates Screen (NEGATIVE) Urine Methadone Screen (NEGATIVE) Ur Barbiturates Screen (NEGATIVE) Ur Phencyclidine Scrn (NEGATIVE) Ur Amphetamines Screen (NEGATIVE) U Benzodiazepines Scrn (NEGATIVE) U Oth Cocaine Metabols (NEGATIVE) U Cannabinoids Screen (NEGATIVE) C. difficile Ag & Toxin (NEGATIVE) 01/29/18 01/29/18 01/29/18 Range/Units 10:11 10:11 10:11 WBC (4.8-10.8) K/uL RBC (4.40-5.90) Mil/uL Hgb (12.0-18.0) g/dL Hct (35.0-51.0) % MCV (80.0-94.0) fL MCH (27.0-31.0) pg MCHC (33.0-37.0) g/dL RDW (11.5-14.5) % Plt Count (130-400) K/uL MPV (7.2-11.7) fL Neut % (Auto) (50.0-75.0) % Lymph % (Auto) (20.0-40.0) % [place] % (Auto) (0.0-10.0) % Eos % (Auto) (0.0-4.0) % Baso % (Auto) (0.0-2.0) % Neut # (Auto) (1.8-7.0) K/uL Lymph # (Auto) (1.0-4.3) K/uL [place] # (Auto) (0.0-0.8) K/uL Eos # (Auto) (0.0-0.7) K/uL Baso # (Auto) (0.0-0.2) K/uL PT 30.6 H* (9.7-12.2) SECONDS INR 2.8 APTT 43 H (21-34) SECONDS pO2 (30-55) mm/Hg VBG pH (7.32-7.43) VBG pCO2 (40-60) mmHg VBG HCO3 mmol/L VBG Total CO2 (22-28) mmol/L VBG O2 Sat (Calc) (40-65) % VBG Base Excess (0.0-2.0) mmol/L VBG Potassium (3.6-5.2) mmol/L Glucose (75-110) mg/dl Lactate (0.7-2.1) mmol/L Sodium 137 (132-148) mmol/L Potassium 3.6 (3.6-5.2) mmol/L Chloride 97 L (98-107) mmol/L Carbon Dioxide 24 (22-30) mmol/L Anion Gap 20 (10-20) BUN 45 H (9-20) mg/dL Creatinine 2.6 H (0.8-1.5) mg/dL Est GFR ( Amer) 29 Est GFR (Non-Af Amer) 24 Random Glucose 126 H (75-110) mg/dL Lactic Acid (0.7-2.1) mmol/L Calcium 8.5 L (8.6-10.4) mg/dl Phosphorus 3.9 (2.5-4.5) mg/dL Magnesium 2.3 (1.6-2.3) mg/dL Total Bilirubin 0.5 (0.2-1.3) mg/dL AST 32 (17-59) U/L ALT 22 (21-72) U/L Alkaline Phosphatase 80 (38-126) U/L Troponin I < 0.0120 (0.00-0.120) ng/mL NT-Pro-B Natriuret Pep 962 H (0-900) pg/mL Total Protein 7.7 (6.3-8.3) g/dL Albumin 4.0 (3.5-5.0) g/dL Globulin 3.7 (2.2-3.9) gm/dL Albumin/Globulin Ratio 1.1 (1.0-2.1) Venous Blood Potassium (3.6-5.2) mmol/L Urine Color (YELLOW) Urine Clarity (Clear) Urine pH (5.0-8.0) Ur Specific [place] (1.003-1.030) Urine Protein (NEGATIVE) mg/dL Urine Glucose (UA) (Normal) mg/dL Urine Ketones (NEGATIVE) mg/dL Urine Blood (NEGATIVE) Urine Nitrate (NEGATIVE) Urine Bilirubin (NEGATIVE) Urine Urobilinogen (0.2-1.0) mg/dL Ur Leukocyte Esterase (Negative) [place]/uL Urine WBC (Auto) (0-5) /hpf Urine RBC (Auto) (0-3) /hpf Ur Squamous Epith Cells (0-5) /hpf Hyaline Casts (0-2) /lpf Digoxin < 0.4 L (0.8-2.0) ng/mL Urine Opiates Screen (NEGATIVE) Urine Methadone Screen (NEGATIVE) Ur Barbiturates Screen (NEGATIVE) Ur Phencyclidine Scrn (NEGATIVE) Ur Amphetamines Screen (NEGATIVE) U Benzodiazepines Scrn (NEGATIVE) U Oth Cocaine Metabols (NEGATIVE) U Cannabinoids Screen (NEGATIVE) C. difficile Ag & Toxin (NEGATIVE) 01/29/18 Range/Units 10:11 WBC 8.2 (4.8-10.8) K/uL RBC 4.19 L (4.40-5.90) Mil/uL Hgb 12.3 (12.0-18.0) g/dL Hct 36.3 (35.0-51.0) % MCV 86.6 (80.0-94.0) fL MCH 29.4 (27.0-31.0) pg MCHC 34.0 (33.0-37.0) g/dL RDW 14.4 (11.5-14.5) % Plt Count 323 D (130-400) K/uL MPV 7.4 (7.2-11.7) fL Neut % (Auto) 71.8 (50.0-75.0) % Lymph % (Auto) 15.5 L (20.0-40.0) % [place] % (Auto) 11.2 H (0.0-10.0) % Eos % (Auto) 1.3 (0.0-4.0) % Baso % (Auto) 0.2 (0.0-2.0) % Neut # (Auto) 5.9 (1.8-7.0) K/uL Lymph # (Auto) 1.3 (1.0-4.3) K/uL [place] # (Auto) 0.9 H (0.0-0.8) K/uL Eos # (Auto) 0.1 (0.0-0.7) K/uL Baso # (Auto) 0.0 (0.0-0.2) K/uL PT (9.7-12.2) SECONDS INR APTT (21-34) SECONDS pO2 (30-55) mm/Hg VBG pH (7.32-7.43) VBG pCO2 (40-60) mmHg VBG HCO3 mmol/L VBG Total CO2 (22-28) mmol/L VBG O2 Sat (Calc) (40-65) % VBG Base Excess (0.0-2.0) mmol/L VBG Potassium (3.6-5.2) mmol/L Glucose (75-110) mg/dl Lactate (0.7-2.1) mmol/L Sodium (132-148) mmol/L Potassium (3.6-5.2) mmol/L Chloride (98-107) mmol/L Carbon Dioxide (22-30) mmol/L Anion Gap (10-20) BUN (9-20) mg/dL Creatinine (0.8-1.5) mg/dL Est GFR ( Amer) Est GFR (Non-Af Amer) Random Glucose (75-110) mg/dL Lactic Acid (0.7-2.1) mmol/L Calcium (8.6-10.4) mg/dl Phosphorus (2.5-4.5) mg/dL Magnesium (1.6-2.3) mg/dL Total Bilirubin (0.2-1.3) mg/dL AST (17-59) U/L ALT (21-72) U/L Alkaline Phosphatase (38-126) U/L Troponin I (0.00-0.120) ng/mL NT-Pro-B Natriuret Pep (0-900) pg/mL Total Protein (6.3-8.3) g/dL Albumin (3.5-5.0) g/dL Globulin (2.2-3.9) gm/dL Albumin/Globulin Ratio (1.0-2.1) Venous Blood Potassium (3.6-5.2) mmol/L Urine Color (YELLOW) Urine Clarity (Clear) Urine pH (5.0-8.0) Ur Specific [place] (1.003-1.030) Urine Protein (NEGATIVE) mg/dL Urine Glucose (UA) (Normal) mg/dL Urine Ketones (NEGATIVE) mg/dL Urine Blood (NEGATIVE) Urine Nitrate (NEGATIVE) Urine Bilirubin (NEGATIVE) Urine Urobilinogen (0.2-1.0) mg/dL Ur Leukocyte Esterase (Negative) [place]/uL Urine WBC (Auto) (0-5) /hpf Urine RBC (Auto) (0-3) /hpf Ur Squamous Epith Cells (0-5) /hpf Hyaline Casts (0-2) /lpf Digoxin (0.8-2.0) ng/mL Urine Opiates Screen (NEGATIVE) Urine Methadone Screen (NEGATIVE) Ur Barbiturates Screen (NEGATIVE) Ur Phencyclidine Scrn (NEGATIVE) Ur Amphetamines Screen (NEGATIVE) U Benzodiazepines Scrn (NEGATIVE) U Oth Cocaine Metabols (NEGATIVE) U Cannabinoids Screen (NEGATIVE) C. difficile Ag & Toxin (NEGATIVE) Laboratory Results - last 24 hr 01/29/18 01/29/18 01/29/18 10:11 10:11 10:11 WBC 8.2 RBC 4.19 L Hgb 12.3 Hct 36.3 MCV 86.6 MCH 29.4 MCHC 34.0 RDW 14.4 Plt Count 323 D MPV 7.4 Neut % (Auto) 71.8 Lymph % (Auto) 15.5 L [place] % (Auto) 11.2 H Eos % (Auto) 1.3 Baso % (Auto) 0.2 Neut # (Auto) 5.9 Lymph # (Auto) 1.3 [place] # (Auto) 0.9 H Eos # (Auto) 0.1 Baso # (Auto) 0.0 PT 30.6 H* INR 2.8 APTT 43 H pO2 VBG pH VBG pCO2 VBG HCO3 VBG Total CO2 VBG O2 Sat (Calc) VBG Base Excess VBG Potassium Glucose Lactate Sodium 137 Potassium 3.6 Chloride 97 L Carbon Dioxide 24 Anion Gap 20 BUN 45 H Creatinine 2.6 H Est GFR ( Amer) 29 Est GFR (Non-Af Amer) 24 Random Glucose 126 H Lactic Acid Calcium 8.5 L Phosphorus 3.9 Magnesium 2.3 Total Bilirubin 0.5 AST 32 ALT 22 Alkaline Phosphatase 80 Troponin I < 0.0120 NT-Pro-B Natriuret Pep 962 H Total Protein 7.7 Albumin 4.0 Globulin 3.7 Albumin/Globulin Ratio 1.1 Venous Blood Potassium Urine Color Urine Clarity Urine pH Ur Specific [place] Urine Protein Urine Glucose (UA) Urine Ketones Urine Blood Urine Nitrate Urine Bilirubin Urine Urobilinogen Ur Leukocyte Esterase Urine WBC (Auto) Urine RBC (Auto) Ur Squamous Epith Cells Hyaline Casts Digoxin Urine Opiates Screen Urine Methadone Screen Ur Barbiturates Screen Ur Phencyclidine Scrn Ur Amphetamines Screen U Benzodiazepines Scrn U Oth Cocaine Metabols U Cannabinoids Screen C. difficile Ag & Toxin 01/29/18 01/29/18 01/29/18 10:11 10:23 10:40 WBC RBC Hgb Hct MCV MCH MCHC RDW Plt Count MPV Neut % (Auto) Lymph % (Auto) [place] % (Auto) Eos % (Auto) Baso % (Auto) Neut # (Auto) Lymph # (Auto) [place] # (Auto) Eos # (Auto) Baso # (Auto) PT INR APTT pO2 18 L VBG pH 7.40 VBG pCO2 42 VBG HCO3 23.8 VBG Total CO2 27.3 VBG O2 Sat (Calc) 31.2 L VBG Base Excess 1.0 VBG Potassium 3.5 L Glucose 124 H Lactate 2.8 H Sodium 137.0 Potassium Chloride 101.0 Carbon Dioxide Anion Gap BUN Creatinine Est GFR ( Amer) Est GFR (Non-Af Amer) Random Glucose Lactic Acid Calcium Phosphorus Magnesium Total Bilirubin AST ALT Alkaline Phosphatase Troponin I NT-Pro-B Natriuret Pep Total Protein Albumin Globulin Albumin/Globulin Ratio Venous Blood Potassium 3.5 L Urine Color Yellow Urine Clarity Clear Urine pH 5.0 Ur Specific [place] 1.014 Urine Protein Negative Urine Glucose (UA) Normal Urine Ketones Negative Urine Blood Negative Urine Nitrate Negative Urine Bilirubin Negative Urine Urobilinogen Normal Ur Leukocyte Esterase Neg Urine WBC (Auto) 2 Urine RBC (Auto) 1 Ur Squamous Epith Cells < 1 Hyaline Casts 0-2 Digoxin < 0.4 L Urine Opiates Screen Urine Methadone Screen Ur Barbiturates Screen Ur Phencyclidine Scrn Ur Amphetamines Screen U Benzodiazepines Scrn U Oth Cocaine Metabols U Cannabinoids Screen C. difficile Ag & Toxin 01/29/18 01/29/18 01/29/18 13:37 18:00 18:44 WBC RBC Hgb Hct MCV MCH MCHC RDW Plt Count MPV Neut % (Auto) Lymph % (Auto) [place] % (Auto) Eos % (Auto) Baso % (Auto) Neut # (Auto) Lymph # (Auto) [place] # (Auto) Eos # (Auto) Baso # (Auto) PT INR APTT pO2 16 L VBG pH 7.36 VBG pCO2 40 VBG HCO3 20.7 VBG Total CO2 23.8 VBG O2 Sat (Calc) 23.6 L VBG Base Excess -2.7 L VBG Potassium 2.6 L Glucose 88 Lactate 2.9 H Sodium 137.0 Potassium Chloride 104.0 Carbon Dioxide Anion Gap BUN Creatinine Est GFR ( Amer) Est GFR (Non-Af Amer) Random Glucose Lactic Acid Calcium Phosphorus Magnesium Total Bilirubin AST ALT Alkaline Phosphatase Troponin I NT-Pro-B Natriuret Pep Total Protein Albumin Globulin Albumin/Globulin Ratio Venous Blood Potassium 2.6 L Urine Color Urine Clarity Urine pH Ur Specific [place] Urine Protein Urine Glucose (UA) Urine Ketones Urine Blood Urine Nitrate Urine Bilirubin Urine Urobilinogen Ur Leukocyte Esterase Urine WBC (Auto) Urine RBC (Auto) Ur Squamous Epith Cells Hyaline Casts Digoxin Urine Opiates Screen Negative Urine Methadone Screen Negative Ur Barbiturates Screen Negative Ur Phencyclidine Scrn Negative Ur Amphetamines Screen Negative U Benzodiazepines Scrn Negative U Oth Cocaine Metabols Negative U Cannabinoids Screen Negative C. difficile Ag & Toxin Positive H 01/29/18 19:20 WBC RBC Hgb Hct MCV MCH MCHC RDW Plt Count MPV Neut % (Auto) Lymph % (Auto) [place] % (Auto) Eos % (Auto) Baso % (Auto) Neut # (Auto) Lymph # (Auto) [place] # (Auto) Eos # (Auto) Baso # (Auto) PT INR APTT pO2 VBG pH VBG pCO2 VBG HCO3 VBG Total CO2 VBG O2 Sat (Calc) VBG Base Excess VBG Potassium Glucose Lactate Sodium Potassium Chloride Carbon Dioxide Anion Gap BUN Creatinine Est GFR ( Amer) Est GFR (Non-Af Amer) Random Glucose Lactic Acid 6.2 H* Calcium Phosphorus Magnesium Total Bilirubin AST ALT Alkaline Phosphatase Troponin I NT-Pro-B Natriuret Pep Total Protein Albumin Globulin Albumin/Globulin Ratio Venous Blood Potassium Urine Color Urine Clarity Urine pH Ur Specific [place] Urine Protein Urine Glucose (UA) Urine Ketones Urine Blood Urine Nitrate Urine Bilirubin Urine Urobilinogen Ur Leukocyte Esterase Urine WBC (Auto) Urine RBC (Auto) Ur Squamous Epith Cells Hyaline Casts Digoxin Urine Opiates Screen Urine Methadone Screen Ur Barbiturates Screen Ur Phencyclidine Scrn Ur Amphetamines Screen U Benzodiazepines Scrn U Oth Cocaine Metabols U Cannabinoids Screen C. difficile Ag & Toxin EKG/Cardiology Studies: Cardiology / EKG Studies 01/29/18 09:45 EKG [ELECTROCARDIOGRAM] Stat Comment: Mode Of Transportation: BED Reason For Exam: cp Isolation: Contact 01/29/18 10:03 ELECTROCARDIOGRAM Stat Comment: Mode Of Transportation: Reason For Exam: Sepsis Patient Critical Care Progress Note - Nutrition Nutrition: Nutrition Category Date Time Status Heart Healthy Diet [DIET] Diets 01/29/18 Dinner Active Assessment/Plan - Date & Time Date: 01/29/18 Time: 21:46
[2018-01-29] MEDS: Sodium Chloride 0.9% 1,000 ML IV SCH (22:55)
[2018-01-29] MEDS: (Novolin R) Insulin Human Regular 100 units/ml vial SC SCH (23:10)
[2018-01-30] MEDS: metroNIDAZOLE IV 500 mg/100 ml 500 MG/100 ML BAG IVPB SCH ×2 (00:24→05:30)
[2018-01-30] MEDS: Piperacill/Tazo 2.25gm in Dex 2.25 GM/50 ML BAG IVPB SCH ×2 (02:00→09:47)
[2018-01-30] MEDS: Sodium Chloride 0.9% 1,000 ML IV SCH (02:30)
[2018-01-30 05:46] LABS: VENOUS BLOOD GAS BASE EXCESS 2.6 mmol/L (0.0-2.0); VENOUS BLOOD GAS PCO2 41 mmHg (40-60); VENOUS BLOOD GAS PO2 24 mm/Hg (30-55); VENOUS BLOOD PH 7.43 (7.32-7.43)
[2018-01-30 06:38] LABS: BASO % 0.3 % (0.0-2.0); EOS # 0.2 K/uL (0.0-0.7); EOS % 2.2 % (0.0-4.0); HEMOGLOBIN 10.7 g/dL (12.0-18.0); LYMPH # 1.3 K/uL (1.0-4.3); LYMPH % 17.7 % (20.0-40.0); MEAN CELL VOLUME 85.2 fL (80.0-94.0); MEAN CORPUSCULAR HEMOGLOBIN 28.9 pg (27.0-31.0); MEAN CORPUSCULAR HGB CONC 33.9 g/dL (33.0-37.0); MEAN PLATELET VOLUME 7.4 fL (7.2-11.7); MONO # 1.1 K/uL (0.0-0.8); NEUT # 4.7 K/uL (1.8-7.0); NEUT % 64.8 % (50.0-75.0); RBC 3.69 Mil/uL (4.40-5.90); RED CELL DISTRIBUTION WIDTH 14.5 % (11.5-14.5); WHITE BLOOD COUNT 7.3 K/uL (4.8-10.8)
[2018-01-30] MEDS: Levothyroxine 25 MCG TAB PO SCH (06:45)
[2018-01-30 06:52] LABS: CALCIUM 7.2 mg/dl (8.6-10.4)
[2018-01-30] MEDS: (Novolin R) Insulin Human Regular 100 units/ml vial SC SCH ×4 (08:05→21:58)
--- NOTE | 2018-01-30 08:12 | CP.CCUPN ---
<Elissa Hatfield - Last Filed: 01/30/18 12:04> CCU Subjective - Physician Review Subjective (Free Text): Patient seen and examined at bedside. Patient reports he feels weak. CCU Objective - Vital Signs / Intake & Output Intake and Output (Last 8hrs): Intake & Output 01/29/18 01/30/18 01/30/18 22:59 06:59 14:59 Intake Total 1300 Output Total 350 1100 Balance -350 200 Intake: Intake, IV Amount 1250 Left Antecubital 250 Left Proximal Port 1000 Antecubital Oral 50 Output: Urine 350 750 Urethral ([place]) 750 Stool 350 Other: Voiding Method Indwelling Catheter # Bowel Movements 1 - Physical Exam Head: Positive for: Atraumatic, Normocephalic Pupils: Positive for: PERRL Extroacular Muscles: Positive for: EOMI Conjunctiva: Positive for: Normal Mouth: Positive for: Moist Mucous Membranes Respiratory/Chest: Positive for: Clear to Auscultation Cardiovascular: Positive for: Tachycardic Abdomen: Positive for: Normal Bowel Sounds. Negative for: Tenderness, Distention Upper Extremity: Positive for: Normal Inspection, NORMAL PULSES, Neurovascularly Intact, Capillary Refill < 2s Lower Extremity: Positive for: Normal Inspection, NORMAL PULSES, Neurovascularly Intact, Capillary Refill < 2 s Neurological: Positive for: GCS=15, CN II-XII Intact Skin: Positive for: Warm, Dry Psychiatric: Positive for: Alert - Medications Active Medications: Active Medications Generic Name Dose Route Start Last Admin Trade Name Freq PRN Reason Stop Dose Admin Aspirin 81 mg 01/30/18 10:00 Ecotrin PO DAILY JESSE Enalapril Maleate 20 mg 01/30/18 10:00 Vasotec PO DAILY JESSE Ergocalciferol 1 cap 02/05/18 10:00 Drisdol 50,000 Intl Units Cap PO QWK JESSE Piperacillin Sod/Tazobactam Sod 2.25 gm in 50 mls @ 100 mls/hr 01/29/18 18:30 01/30/18 02:00 Zosyn 2.25 Gm Iv Premix IVPB 100 mls/hr Q8H JESSE Administration Protocol Sodium Bicarbonate 150 meq/ 1,150 mls @ 50 mls/hr 01/29/18 18:30 01/29/18 20: 27 Dextrose IV 50 mls/hr .Q23H JESSE Administration Metronidazole 500 mg in 100 mls @ 100 mls/hr 01/30/18 00:00 01/30/18 05:30 Flagyl IVPB 100 mls/hr Q6 JESSE Administration Protocol Ciprofloxacin 400 mg in 200 mls @ 133 mls/hr 01/30/18 14:00 Cipro 400mg/200ml Dsw IVPB Q24H JESSE Protocol Insulin Human Regular 0 unit 01/29/18 22:00 01/29/18 23:10 Novolin R SC Not Given ACHS JESSE Protocol Levothyroxine Sodium 25 mcg 01/30/18 06:30 01/30/18 06:45 Synthroid PO 25 mcg DAILY@0630 JESSE Administration Lisinopril 40 mg 01/30/18 10:00 Zestril PO DAILY JESSE Metoprolol Tartrate 25 mg 01/30/18 10:00 Lopressor PO BID JESSE Pantoprazole Sodium 20 mg 01/30/18 10:00 Protonix Ec Tab PO DAILY JESSE Rivaroxaban 20 mg 01/30/18 10:00 Xarelto PO DAILY JESSE Rosuvastatin Calcium 10 mg 01/29/18 22:00 01/29/18 23:09 Crestor PO 10 mg HS JESSE Administration Tamsulosin HCl 0.4 mg 01/30/18 10:00 Flomax PO DAILY JESSE - Patient Studies Lab Studies: Lab Studies 01/30/18 01/30/18 01/30/18 Range/Units 06:30 06:30 06:30 WBC 7.3 (4.8-10.8) K/uL RBC 3.69 L (4.40-5.90) Mil/uL Hgb 10.7 L (12.0-18.0) g/dL Hct 31.4 L (35.0-51.0) % MCV 85.2 (80.0-94.0) fL MCH 28.9 (27.0-31.0) pg MCHC 33.9 (33.0-37.0) g/dL RDW 14.5 (11.5-14.5) % Plt Count 260 (130-400) K/uL MPV 7.4 (7.2-11.7) fL Neut % (Auto) 64.8 (50.0-75.0) % Lymph % (Auto) 17.7 L (20.0-40.0) % [place] % (Auto) 15.0 H (0.0-10.0) % Eos % (Auto) 2.2 (0.0-4.0) % Baso % (Auto) 0.3 (0.0-2.0) % Neut # (Auto) 4.7 (1.8-7.0) K/uL Lymph # (Auto) 1.3 (1.0-4.3) K/uL [place] # (Auto) 1.1 H (0.0-0.8) K/uL Eos # (Auto) 0.2 (0.0-0.7) K/uL Baso # (Auto) 0.0 (0.0-0.2) K/uL PT (9.7-12.2) SECONDS INR APTT (21-34) SECONDS pO2 (30-55) mm/Hg VBG pH (7.32-7.43) VBG pCO2 (40-60) mmHg VBG HCO3 mmol/L VBG Total CO2 (22-28) mmol/L VBG O2 Sat (Calc) (40-65) % VBG Base Excess (0.0-2.0) mmol/L VBG Potassium (3.6-5.2) mmol/L Glucose (75-110) mg/dl Lactate (0.7-2.1) mmol/L Sodium 137 (132-148) mmol/L Potassium 3.1 L (3.6-5.2) mmol/L Chloride 104 (98-107) mmol/L Carbon Dioxide 25 (22-30) mmol/L Anion Gap 12 (10-20) BUN 32 H (9-20) mg/dL Creatinine 1.5 (0.8-1.5) mg/dL Est GFR ( Amer) 54 Est GFR (Non-Af Amer) 45 POC Glucose (mg/dL) (65-110) mg/dL Random Glucose 118 H (75-110) mg/dL Lactic Acid 0.9 (0.7-2.1) mmol/L Calcium 7.2 L (8.6-10.4) mg/dl Phosphorus (2.5-4.5) mg/dL Magnesium (1.6-2.3) mg/dL Total Bilirubin (0.2-1.3) mg/dL AST (17-59) U/L ALT (21-72) U/L Alkaline Phosphatase (38-126) U/L Troponin I (0.00-0.120) ng/mL NT-Pro-B Natriuret Pep (0-900) pg/mL Total Protein (6.3-8.3) g/dL Albumin (3.5-5.0) g/dL Globulin (2.2-3.9) gm/dL Albumin/Globulin Ratio (1.0-2.1) Venous Blood Potassium (3.6-5.2) mmol/L Urine Color (YELLOW) Urine Clarity (Clear) Urine pH (5.0-8.0) Ur Specific [place] (1.003-1.030) Urine Protein (NEGATIVE) mg/dL Urine Glucose (UA) (Normal) mg/dL Urine Ketones (NEGATIVE) mg/dL Urine Blood (NEGATIVE) Urine Nitrate (NEGATIVE) Urine Bilirubin (NEGATIVE) Urine Urobilinogen (0.2-1.0) mg/dL Ur Leukocyte Esterase (Negative) [place]/uL Urine WBC (Auto) (0-5) /hpf Urine RBC (Auto) (0-3) /hpf Ur Squamous Epith Cells (0-5) /hpf Hyaline Casts (0-2) /lpf Stool Occult Blood (NEGATIVE) Digoxin (0.8-2.0) ng/mL Urine Opiates Screen (NEGATIVE) Urine Methadone Screen (NEGATIVE) Ur Barbiturates Screen (NEGATIVE) Ur Phencyclidine Scrn (NEGATIVE) Ur Amphetamines Screen (NEGATIVE) U Benzodiazepines Scrn (NEGATIVE) U Oth Cocaine Metabols (NEGATIVE) U Cannabinoids Screen (NEGATIVE) C. difficile Ag & Toxin (NEGATIVE) 01/30/18 01/29/18 01/29/18 Range/Units 05:42 21:56 19:20 WBC (4.8-10.8) K/uL RBC (4.40-5.90) Mil/uL Hgb (12.0-18.0) g/dL Hct (35.0-51.0) % MCV (80.0-94.0) fL MCH (27.0-31.0) pg MCHC (33.0-37.0) g/dL RDW (11.5-14.5) % Plt Count (130-400) K/uL MPV (7.2-11.7) fL Neut % (Auto) (50.0-75.0) % Lymph % (Auto) (20.0-40.0) % [place] % (Auto) (0.0-10.0) % Eos % (Auto) (0.0-4.0) % Baso % (Auto) (0.0-2.0) % Neut # (Auto) (1.8-7.0) K/uL Lymph # (Auto) (1.0-4.3) K/uL [place] # (Auto) (0.0-0.8) K/uL Eos # (Auto) (0.0-0.7) K/uL Baso # (Auto) (0.0-0.2) K/uL PT (9.7-12.2) SECONDS INR APTT (21-34) SECONDS pO2 24 L (30-55) mm/Hg VBG pH 7.43 (7.32-7.43) VBG pCO2 41 (40-60) mmHg VBG HCO3 25.5 mmol/L VBG Total CO2 28.5 H (22-28) mmol/L VBG O2 Sat (Calc) 47.0 (40-65) % VBG Base Excess 2.6 H (0.0-2.0) mmol/L VBG Potassium 3.0 L (3.6-5.2) mmol/L Glucose 130 H (75-110) mg/dl Lactate 1.3 (0.7-2.1) mmol/L Sodium 135.0 (132-148) mmol/L Potassium (3.6-5.2) mmol/L Chloride 104.0 (98-107) mmol/L Carbon Dioxide (22-30) mmol/L Anion Gap (10-20) BUN (9-20) mg/dL Creatinine (0.8-1.5) mg/dL Est GFR ( Amer) Est GFR (Non-Af Amer) POC Glucose (mg/dL) 136 H (65-110) mg/dL Random Glucose (75-110) mg/dL Lactic Acid 6.2 H* (0.7-2.1) mmol/L Calcium (8.6-10.4) mg/dl Phosphorus (2.5-4.5) mg/dL Magnesium (1.6-2.3) mg/dL Total Bilirubin (0.2-1.3) mg/dL AST (17-59) U/L ALT (21-72) U/L Alkaline Phosphatase (38-126) U/L Troponin I (0.00-0.120) ng/mL NT-Pro-B Natriuret Pep (0-900) pg/mL Total Protein (6.3-8.3) g/dL Albumin (3.5-5.0) g/dL Globulin (2.2-3.9) gm/dL Albumin/Globulin Ratio (1.0-2.1) Venous Blood Potassium 3.0 L (3.6-5.2) mmol/L Urine Color (YELLOW) Urine Clarity (Clear) Urine pH (5.0-8.0) Ur Specific [place] (1.003-1.030) Urine Protein (NEGATIVE) mg/dL Urine Glucose (UA) (Normal) mg/dL Urine Ketones (NEGATIVE) mg/dL Urine Blood (NEGATIVE) Urine Nitrate (NEGATIVE) Urine Bilirubin (NEGATIVE) Urine Urobilinogen (0.2-1.0) mg/dL Ur Leukocyte Esterase (Negative) [place]/uL Urine WBC (Auto) (0-5) /hpf Urine RBC (Auto) (0-3) /hpf Ur Squamous Epith Cells (0-5) /hpf Hyaline Casts (0-2) /lpf Stool Occult Blood (NEGATIVE) Digoxin (0.8-2.0) ng/mL Urine Opiates Screen (NEGATIVE) Urine Methadone Screen (NEGATIVE) Ur Barbiturates Screen (NEGATIVE) Ur Phencyclidine Scrn (NEGATIVE) Ur Amphetamines Screen (NEGATIVE) U Benzodiazepines Scrn (NEGATIVE) U Oth Cocaine Metabols (NEGATIVE) U Cannabinoids Screen (NEGATIVE) C. difficile Ag & Toxin (NEGATIVE) 01/29/18 01/29/18 01/29/18 Range/Units 18:44 18:00 17:43 WBC (4.8-10.8) K/uL RBC (4.40-5.90) Mil/uL Hgb (12.0-18.0) g/dL Hct (35.0-51.0) % MCV (80.0-94.0) fL MCH (27.0-31.0) pg MCHC (33.0-37.0) g/dL RDW (11.5-14.5) % Plt Count (130-400) K/uL MPV (7.2-11.7) fL Neut % (Auto) (50.0-75.0) % Lymph % (Auto) (20.0-40.0) % [place] % (Auto) (0.0-10.0) % Eos % (Auto) (0.0-4.0) % Baso % (Auto) (0.0-2.0) % Neut # (Auto) (1.8-7.0) K/uL Lymph # (Auto) (1.0-4.3) K/uL [place] # (Auto) (0.0-0.8) K/uL Eos # (Auto) (0.0-0.7) K/uL Baso # (Auto) (0.0-0.2) K/uL PT (9.7-12.2) SECONDS INR APTT (21-34) SECONDS pO2 (30-55) mm/Hg VBG pH (7.32-7.43) VBG pCO2 (40-60) mmHg VBG HCO3 mmol/L VBG Total CO2 (22-28) mmol/L VBG O2 Sat (Calc) (40-65) % VBG Base Excess (0.0-2.0) mmol/L VBG Potassium (3.6-5.2) mmol/L Glucose (75-110) mg/dl Lactate (0.7-2.1) mmol/L Sodium (132-148) mmol/L Potassium (3.6-5.2) mmol/L Chloride (98-107) mmol/L Carbon Dioxide (22-30) mmol/L Anion Gap (10-20) BUN (9-20) mg/dL Creatinine (0.8-1.5) mg/dL Est GFR ( Amer) Est GFR (Non-Af Amer) POC Glucose (mg/dL) (65-110) mg/dL Random Glucose (75-110) mg/dL Lactic Acid (0.7-2.1) mmol/L Calcium (8.6-10.4) mg/dl Phosphorus (2.5-4.5) mg/dL Magnesium (1.6-2.3) mg/dL Total Bilirubin (0.2-1.3) mg/dL AST (17-59) U/L ALT (21-72) U/L Alkaline Phosphatase (38-126) U/L Troponin I (0.00-0.120) ng/mL NT-Pro-B Natriuret Pep (0-900) pg/mL Total Protein (6.3-8.3) g/dL Albumin (3.5-5.0) g/dL Globulin (2.2-3.9) gm/dL Albumin/Globulin Ratio (1.0-2.1) Venous Blood Potassium (3.6-5.2) mmol/L Urine Color (YELLOW) Urine Clarity (Clear) Urine pH (5.0-8.0) Ur Specific [place] (1.003-1.030) Urine Protein (NEGATIVE) mg/dL Urine Glucose (UA) (Normal) mg/dL Urine Ketones (NEGATIVE) mg/dL Urine Blood (NEGATIVE) Urine Nitrate (NEGATIVE) Urine Bilirubin (NEGATIVE) Urine Urobilinogen (0.2-1.0) mg/dL Ur Leukocyte Esterase (Negative) [place]/uL Urine WBC (Auto) (0-5) /hpf Urine RBC (Auto) (0-3) /hpf Ur Squamous Epith Cells (0-5) /hpf Hyaline Casts (0-2) /lpf Stool Occult Blood Positive H (NEGATIVE) Digoxin (0.8-2.0) ng/mL Urine Opiates Screen Negative (NEGATIVE) Urine Methadone Screen Negative (NEGATIVE) Ur Barbiturates Screen Negative (NEGATIVE) Ur Phencyclidine Scrn Negative (NEGATIVE) Ur Amphetamines Screen Negative (NEGATIVE) U Benzodiazepines Scrn Negative (NEGATIVE) U Oth Cocaine Metabols Negative (NEGATIVE) U Cannabinoids Screen Negative (NEGATIVE) C. difficile Ag & Toxin Positive H (NEGATIVE) 01/29/18 01/29/18 01/29/18 Range/Units 13:37 10:40 10:23 WBC (4.8-10.8) K/uL RBC (4.40-5.90) Mil/uL Hgb (12.0-18.0) g/dL Hct (35.0-51.0) % MCV (80.0-94.0) fL MCH (27.0-31.0) pg MCHC (33.0-37.0) g/dL RDW (11.5-14.5) % Plt Count (130-400) K/uL MPV (7.2-11.7) fL Neut % (Auto) (50.0-75.0) % Lymph % (Auto) (20.0-40.0) % [place] % (Auto) (0.0-10.0) % Eos % (Auto) (0.0-4.0) % Baso % (Auto) (0.0-2.0) % Neut # (Auto) (1.8-7.0) K/uL Lymph # (Auto) (1.0-4.3) K/uL [place] # (Auto) (0.0-0.8) K/uL Eos # (Auto) (0.0-0.7) K/uL Baso # (Auto) (0.0-0.2) K/uL PT (9.7-12.2) SECONDS INR APTT (21-34) SECONDS pO2 16 L 18 L (30-55) mm/Hg VBG pH 7.36 7.40 (7.32-7.43) VBG pCO2 40 42 (40-60) mmHg VBG HCO3 20.7 23.8 mmol/L VBG Total CO2 23.8 27.3 (22-28) mmol/L VBG O2 Sat (Calc) 23.6 L 31.2 L (40-65) % VBG Base Excess -2.7 L 1.0 (0.0-2.0) mmol/L VBG Potassium 2.6 L 3.5 L (3.6-5.2) mmol/L Glucose 88 124 H (75-110) mg/dl Lactate 2.9 H 2.8 H (0.7-2.1) mmol/L Sodium 137.0 137.0 (132-148) mmol/L Potassium (3.6-5.2) mmol/L Chloride 104.0 101.0 (98-107) mmol/L Carbon Dioxide (22-30) mmol/L Anion Gap (10-20) BUN (9-20) mg/dL Creatinine (0.8-1.5) mg/dL Est GFR ( Amer) Est GFR (Non-Af Amer) POC Glucose (mg/dL) (65-110) mg/dL Random Glucose (75-110) mg/dL Lactic Acid (0.7-2.1) mmol/L Calcium (8.6-10.4) mg/dl Phosphorus (2.5-4.5) mg/dL Magnesium (1.6-2.3) mg/dL Total Bilirubin (0.2-1.3) mg/dL AST (17-59) U/L ALT (21-72) U/L Alkaline Phosphatase (38-126) U/L Troponin I (0.00-0.120) ng/mL NT-Pro-B Natriuret Pep (0-900) pg/mL Total Protein (6.3-8.3) g/dL Albumin (3.5-5.0) g/dL Globulin (2.2-3.9) gm/dL Albumin/Globulin Ratio (1.0-2.1) Venous Blood Potassium 2.6 L 3.5 L (3.6-5.2) mmol/L Urine Color Yellow (YELLOW) Urine Clarity Clear (Clear) Urine pH 5.0 (5.0-8.0) Ur Specific [place] 1.014 (1.003-1.030) Urine Protein Negative (NEGATIVE) mg/dL Urine Glucose (UA) Normal (Normal) mg/dL Urine Ketones Negative (NEGATIVE) mg/dL Urine Blood Negative (NEGATIVE) Urine Nitrate Negative (NEGATIVE) Urine Bilirubin Negative (NEGATIVE) Urine Urobilinogen Normal (0.2-1.0) mg/dL Ur Leukocyte Esterase Neg (Negative) [place]/uL Urine WBC (Auto) 2 (0-5) /hpf Urine RBC (Auto) 1 (0-3) /hpf Ur Squamous Epith Cells < 1 (0-5) /hpf Hyaline Casts 0-2 (0-2) /lpf Stool Occult Blood (NEGATIVE) Digoxin (0.8-2.0) ng/mL Urine Opiates Screen (NEGATIVE) Urine Methadone Screen (NEGATIVE) Ur Barbiturates Screen (NEGATIVE) Ur Phencyclidine Scrn (NEGATIVE) Ur Amphetamines Screen (NEGATIVE) U Benzodiazepines Scrn (NEGATIVE) U Oth Cocaine Metabols (NEGATIVE) U Cannabinoids Screen (NEGATIVE) C. difficile Ag & Toxin (NEGATIVE) 06/22/18 06/22/18 06/22/18 Range/Units 10:11 10:11 10:11 WBC (4.8-10.8) K/uL RBC (4.40-5.90) Mil/uL Hgb (12.0-18.0) g/dL Hct (35.0-51.0) % MCV (80.0-94.0) fL MCH (27.0-31.0) pg MCHC (33.0-37.0) g/dL RDW (11.5-14.5) % Plt Count (130-400) K/uL MPV (7.2-11.7) fL Neut % (Auto) (50.0-75.0) % Lymph % (Auto) (20.0-40.0) % [place] % (Auto) (0.0-10.0) % Eos % (Auto) (0.0-4.0) % Baso % (Auto) (0.0-2.0) % Neut # (Auto) (1.8-7.0) K/uL Lymph # (Auto) (1.0-4.3) K/uL [place] # (Auto) (0.0-0.8) K/uL Eos # (Auto) (0.0-0.7) K/uL Baso # (Auto) (0.0-0.2) K/uL PT 30.6 H* (9.7-12.2) SECONDS INR 2.8 APTT 43 H (21-34) SECONDS pO2 (30-55) mm/Hg VBG pH (7.32-7.43) VBG pCO2 (40-60) mmHg VBG HCO3 mmol/L VBG Total CO2 (22-28) mmol/L VBG O2 Sat (Calc) (40-65) % VBG Base Excess (0.0-2.0) mmol/L VBG Potassium (3.6-5.2) mmol/L Glucose (75-110) mg/dl Lactate (0.7-2.1) mmol/L Sodium 137 (132-148) mmol/L Potassium 3.6 (3.6-5.2) mmol/L Chloride 97 L (98-107) mmol/L Carbon Dioxide 24 (22-30) mmol/L Anion Gap 20 (10-20) BUN 45 H (9-20) mg/dL Creatinine 2.6 H (0.8-1.5) mg/dL Est GFR ( Amer) 29 Est GFR (Non-Af Amer) 24 POC Glucose (mg/dL) (65-110) mg/dL Random Glucose 126 H (75-110) mg/dL Lactic Acid (0.7-2.1) mmol/L Calcium 8.5 L (8.6-10.4) mg/dl Phosphorus 3.9 (2.5-4.5) mg/dL Magnesium 2.3 (1.6-2.3) mg/dL Total Bilirubin 0.5 (0.2-1.3) mg/dL AST 32 (17-59) U/L ALT 22 (21-72) U/L Alkaline Phosphatase 80 (38-126) U/L Troponin I < 0.0120 (0.00-0.120) ng/mL NT-Pro-B Natriuret Pep 962 H (0-900) pg/mL Total Protein 7.7 (6.3-8.3) g/dL Albumin 4.0 (3.5-5.0) g/dL Globulin 3.7 (2.2-3.9) gm/dL Albumin/Globulin Ratio 1.1 (1.0-2.1) Venous Blood Potassium (3.6-5.2) mmol/L Urine Color (YELLOW) Urine Clarity (Clear) Urine pH (5.0-8.0) Ur Specific [place] (1.003-1.030) Urine Protein (NEGATIVE) mg/dL Urine Glucose (UA) (Normal) mg/dL Urine Ketones (NEGATIVE) mg/dL Urine Blood (NEGATIVE) Urine Nitrate (NEGATIVE) Urine Bilirubin (NEGATIVE) Urine Urobilinogen (0.2-1.0) mg/dL Ur Leukocyte Esterase (Negative) [place]/uL Urine WBC (Auto) (0-5) /hpf Urine RBC (Auto) (0-3) /hpf Ur Squamous Epith Cells (0-5) /hpf Hyaline Casts (0-2) /lpf Stool Occult Blood (NEGATIVE) Digoxin < 0.4 L (0.8-2.0) ng/mL Urine Opiates Screen (NEGATIVE) Urine Methadone Screen (NEGATIVE) Ur Barbiturates Screen (NEGATIVE) Ur Phencyclidine Scrn (NEGATIVE) Ur Amphetamines Screen (NEGATIVE) U Benzodiazepines Scrn (NEGATIVE) U Oth Cocaine Metabols (NEGATIVE) U Cannabinoids Screen (NEGATIVE) C. difficile Ag & Toxin (NEGATIVE) 01/29/18 Range/Units 10:11 WBC 8.2 (4.8-10.8) K/uL RBC 4.19 L (4.40-5.90) Mil/uL Hgb 12.3 (12.0-18.0) g/dL Hct 36.3 (35.0-51.0) % MCV 86.6 (80.0-94.0) fL MCH 29.4 (27.0-31.0) pg MCHC 34.0 (33.0-37.0) g/dL RDW 14.4 (11.5-14.5) % Plt Count 323 D (130-400) K/uL MPV 7.4 (7.2-11.7) fL Neut % (Auto) 71.8 (50.0-75.0) % Lymph % (Auto) 15.5 L (20.0-40.0) % [place] % (Auto) 11.2 H (0.0-10.0) % Eos % (Auto) 1.3 (0.0-4.0) % Baso % (Auto) 0.2 (0.0-2.0) % Neut # (Auto) 5.9 (1.8-7.0) K/uL Lymph # (Auto) 1.3 (1.0-4.3) K/uL [place] # (Auto) 0.9 H (0.0-0.8) K/uL Eos # (Auto) 0.1 (0.0-0.7) K/uL Baso # (Auto) 0.0 (0.0-0.2) K/uL PT (9.7-12.2) SECONDS INR APTT (21-34) SECONDS pO2 (30-55) mm/Hg VBG pH (7.32-7.43) VBG pCO2 (40-60) mmHg VBG HCO3 mmol/L VBG Total CO2 (22-28) mmol/L VBG O2 Sat (Calc) (40-65) % VBG Base Excess (0.0-2.0) mmol/L VBG Potassium (3.6-5.2) mmol/L Glucose (75-110) mg/dl Lactate (0.7-2.1) mmol/L Sodium (132-148) mmol/L Potassium (3.6-5.2) mmol/L Chloride (98-107) mmol/L Carbon Dioxide (22-30) mmol/L Anion Gap (10-20) BUN (9-20) mg/dL Creatinine (0.8-1.5) mg/dL Est GFR ( Amer) Est GFR (Non-Af Amer) POC Glucose (mg/dL) (65-110) mg/dL Random Glucose (75-110) mg/dL Lactic Acid (0.7-2.1) mmol/L Calcium (8.6-10.4) mg/dl Phosphorus (2.5-4.5) mg/dL Magnesium (1.6-2.3) mg/dL Total Bilirubin (0.2-1.3) mg/dL AST (17-59) U/L ALT (21-72) U/L Alkaline Phosphatase (38-126) U/L Troponin I (0.00-0.120) ng/mL NT-Pro-B Natriuret Pep (0-900) pg/mL Total Protein (6.3-8.3) g/dL Albumin (3.5-5.0) g/dL Globulin (2.2-3.9) gm/dL Albumin/Globulin Ratio (1.0-2.1) Venous Blood Potassium (3.6-5.2) mmol/L Urine Color (YELLOW) Urine Clarity (Clear) Urine pH (5.0-8.0) Ur Specific [place] (1.003-1.030) Urine Protein (NEGATIVE) mg/dL Urine Glucose (UA) (Normal) mg/dL Urine Ketones (NEGATIVE) mg/dL Urine Blood (NEGATIVE) Urine Nitrate (NEGATIVE) Urine Bilirubin (NEGATIVE) Urine Urobilinogen (0.2-1.0) mg/dL Ur Leukocyte Esterase (Negative) [place]/uL Urine WBC (Auto) (0-5) /hpf Urine RBC (Auto) (0-3) /hpf Ur Squamous Epith Cells (0-5) /hpf Hyaline Casts (0-2) /lpf Stool Occult Blood (NEGATIVE) Digoxin (0.8-2.0) ng/mL Urine Opiates Screen (NEGATIVE) Urine Methadone Screen (NEGATIVE) Ur Barbiturates Screen (NEGATIVE) Ur Phencyclidine Scrn (NEGATIVE) Ur Amphetamines Screen (NEGATIVE) U Benzodiazepines Scrn (NEGATIVE) U Oth Cocaine Metabols (NEGATIVE) U Cannabinoids Screen (NEGATIVE) C. difficile Ag & Toxin (NEGATIVE) Laboratory Results - last 24 hr 01/29/18 01/29/18 01/29/18 10:11 10:11 10:11 WBC 8.2 RBC 4.19 L Hgb 12.3 Hct 36.3 MCV 86.6 MCH 29.4 MCHC 34.0 RDW 14.4 Plt Count 323 D MPV 7.4 Neut % (Auto) 71.8 Lymph % (Auto) 15.5 L [place] % (Auto) 11.2 H Eos % (Auto) 1.3 Baso % (Auto) 0.2 Neut # (Auto) 5.9 Lymph # (Auto) 1.3 [place] # (Auto) 0.9 H Eos # (Auto) 0.1 Baso # (Auto) 0.0 PT 30.6 H* INR 2.8 APTT 43 H pO2 VBG pH VBG pCO2 VBG HCO3 VBG Total CO2 VBG O2 Sat (Calc) VBG Base Excess VBG Potassium Glucose Lactate Sodium 137 Potassium 3.6 Chloride 97 L Carbon Dioxide 24 Anion Gap 20 BUN 45 H Creatinine 2.6 H Est GFR ( Amer) 29 Est GFR (Non-Af Amer) 24 POC Glucose (mg/dL) Random Glucose 126 H Lactic Acid Calcium 8.5 L Phosphorus 3.9 Magnesium 2.3 Total Bilirubin 0.5 AST 32 ALT 22 Alkaline Phosphatase 80 Troponin I < 0.0120 NT-Pro-B Natriuret Pep 962 H Total Protein 7.7 Albumin 4.0 Globulin 3.7 Albumin/Globulin Ratio 1.1 Venous Blood Potassium Urine Color Urine Clarity Urine pH Ur Specific [place] Urine Protein Urine Glucose (UA) Urine Ketones Urine Blood Urine Nitrate Urine Bilirubin Urine Urobilinogen Ur Leukocyte Esterase Urine WBC (Auto) Urine RBC (Auto) Ur Squamous Epith Cells Hyaline Casts Stool Occult Blood Digoxin Urine Opiates Screen Urine Methadone Screen Ur Barbiturates Screen Ur Phencyclidine Scrn Ur Amphetamines Screen U Benzodiazepines Scrn U Oth Cocaine Metabols U Cannabinoids Screen C. difficile Ag & Toxin 01/29/18 01/29/1818 10:11 10:23 10:40 WBC RBC Hgb Hct MCV MCH MCHC RDW Plt Count MPV Neut % (Auto) Lymph % (Auto) [place] % (Auto) Eos % (Auto) Baso % (Auto) Neut # (Auto) Lymph # (Auto) [place] # (Auto) Eos # (Auto) Baso # (Auto) PT INR APTT pO2 18 L VBG pH 7.40 VBG pCO2 42 VBG HCO3 23.8 VBG Total CO2 27.3 VBG O2 Sat (Calc) 31.2 L VBG Base Excess 1.0 VBG Potassium 3.5 L Glucose 124 H Lactate 2.8 H Sodium 137.0 Potassium Chloride 101.0 Carbon Dioxide Anion Gap BUN Creatinine Est GFR ( Amer) Est GFR (Non-Af Amer) POC Glucose (mg/dL) Random Glucose Lactic Acid Calcium Phosphorus Magnesium Total Bilirubin AST ALT Alkaline Phosphatase Troponin I NT-Pro-B Natriuret Pep Total Protein Albumin Globulin Albumin/Globulin Ratio Venous Blood Potassium 3.5 L Urine Color Yellow Urine Clarity Clear Urine pH 5.0 Ur Specific [place] 1.014 Urine Protein Negative Urine Glucose (UA) Normal Urine Ketones Negative Urine Blood Negative Urine Nitrate Negative Urine Bilirubin Negative Urine Urobilinogen Normal Ur Leukocyte Esterase Neg Urine WBC (Auto) 2 Urine RBC (Auto) 1 Ur Squamous Epith Cells < 1 Hyaline Casts 0-2 Stool Occult Blood Digoxin < 0.4 L Urine Opiates Screen Urine Methadone Screen Ur Barbiturates Screen Ur Phencyclidine Scrn Ur Amphetamines Screen U Benzodiazepines Scrn U Oth Cocaine Metabols U Cannabinoids Screen C. difficile Ag & Toxin 01/29/18 01/29/18 01/29/18 13:37 17:43 18:00 WBC RBC Hgb Hct MCV MCH MCHC RDW Plt Count MPV Neut % (Auto) Lymph % (Auto) [place] % (Auto) Eos % (Auto) Baso % (Auto) Neut # (Auto) Lymph # (Auto) [place] # (Auto) Eos # (Auto) Baso # (Auto) PT INR APTT pO2 16 L VBG pH 7.36 VBG pCO2 40 VBG HCO3 20.7 VBG Total CO2 23.8 VBG O2 Sat (Calc) 23.6 L VBG Base Excess -2.7 L VBG Potassium 2.6 L Glucose 88 Lactate 2.9 H Sodium 137.0 Potassium Chloride 104.0 Carbon Dioxide Anion Gap BUN Creatinine Est GFR ( Amer) Est GFR (Non-Af Amer) POC Glucose (mg/dL) Random Glucose Lactic Acid Calcium Phosphorus Magnesium Total Bilirubin AST ALT Alkaline Phosphatase Troponin I NT-Pro-B Natriuret Pep Total Protein Albumin Globulin Albumin/Globulin Ratio Venous Blood Potassium 2.6 L Urine Color Urine Clarity Urine pH Ur Specific [place] Urine Protein Urine Glucose (UA) Urine Ketones Urine Blood Urine Nitrate Urine Bilirubin Urine Urobilinogen Ur Leukocyte Esterase Urine WBC (Auto) Urine RBC (Auto) Ur Squamous Epith Cells Hyaline Casts Stool Occult Blood Positive H Digoxin Urine Opiates Screen Urine Methadone Screen Ur Barbiturates Screen Ur Phencyclidine Scrn Ur Amphetamines Screen U Benzodiazepines Scrn U Oth Cocaine Metabols U Cannabinoids Screen C. difficile Ag & Toxin Positive H 01/29/18 01/29/18 01/29/18 18:44 19:20 21:56 WBC RBC Hgb Hct MCV MCH MCHC RDW Plt Count MPV Neut % (Auto) Lymph % (Auto) [place] % (Auto) Eos % (Auto) Baso % (Auto) Neut # (Auto) Lymph # (Auto) [place] # (Auto) Eos # (Auto) Baso # (Auto) PT INR APTT pO2 VBG pH VBG pCO2 VBG HCO3 VBG Total CO2 VBG O2 Sat (Calc) VBG Base Excess VBG Potassium Glucose Lactate Sodium Potassium Chloride Carbon Dioxide Anion Gap BUN Creatinine Est GFR ( Amer) Est GFR (Non-Af Amer) POC Glucose (mg/dL) 136 H Random Glucose Lactic Acid 6.2 H* Calcium Phosphorus Magnesium Total Bilirubin AST ALT Alkaline Phosphatase Troponin I NT-Pro-B Natriuret Pep Total Protein Albumin Globulin Albumin/Globulin Ratio Venous Blood Potassium Urine Color Urine Clarity Urine pH Ur Specific [place] Urine Protein Urine Glucose (UA) Urine Ketones Urine Blood Urine Nitrate Urine Bilirubin Urine Urobilinogen Ur Leukocyte Esterase Urine WBC (Auto) Urine RBC (Auto) Ur Squamous Epith Cells Hyaline Casts Stool Occult Blood Digoxin Urine Opiates Screen Negative Urine Methadone Screen Negative Ur Barbiturates Screen Negative Ur Phencyclidine Scrn Negative Ur Amphetamines Screen Negative U Benzodiazepines Scrn Negative U Oth Cocaine Metabols Negative U Cannabinoids Screen Negative C. difficile Ag & Toxin 01/30/18 01/30/18 01/30/18 05:42 06:30 06:30 WBC 7.3 RBC 3.69 L Hgb 10.7 L Hct 31.4 L MCV 85.2 MCH 28.9 MCHC 33.9 RDW 14.5 Plt Count 260 MPV 7.4 Neut % (Auto) 64.8 Lymph % (Auto) 17.7 L [place] % (Auto) 15.0 H Eos % (Auto) 2.2 Baso % (Auto) 0.3 Neut # (Auto) 4.7 Lymph # (Auto) 1.3 [place] # (Auto) 1.1 H Eos # (Auto) 0.2 Baso # (Auto) 0.0 PT INR APTT pO2 24 L VBG pH 7.43 VBG pCO2 41 VBG HCO3 25.5 VBG Total CO2 28.5 H VBG O2 Sat (Calc) 47.0 VBG Base Excess 2.6 H VBG Potassium 3.0 L Glucose 130 H Lactate 1.3 Sodium 135.0 137 Potassium 3.1 L Chloride 104.0 104 Carbon Dioxide 25 Anion Gap 12 BUN 32 H Creatinine 1.5 Est GFR ( Amer) 54 Est GFR (Non-Af Amer) 45 POC Glucose (mg/dL) Random Glucose 118 H Lactic Acid Calcium 7.2 L Phosphorus Magnesium Total Bilirubin AST ALT Alkaline Phosphatase Troponin I NT-Pro-B Natriuret Pep Total Protein Albumin Globulin Albumin/Globulin Ratio Venous Blood Potassium 3.0 L Urine Color Urine Clarity Urine pH Ur Specific [place] Urine Protein Urine Glucose (UA) Urine Ketones Urine Blood Urine Nitrate Urine Bilirubin Urine Urobilinogen Ur Leukocyte Esterase Urine WBC (Auto) Urine RBC (Auto) Ur Squamous Epith Cells Hyaline Casts Stool Occult Blood Digoxin Urine Opiates Screen Urine Methadone Screen Ur Barbiturates Screen Ur Phencyclidine Scrn Ur Amphetamines Screen U Benzodiazepines Scrn U Oth Cocaine Metabols U Cannabinoids Screen C. difficile Ag & Toxin 01/30/18 06:30 WBC RBC Hgb Hct MCV MCH MCHC RDW Plt Count MPV Neut % (Auto) Lymph % (Auto) [place] % (Auto) Eos % (Auto) Baso % (Auto) Neut # (Auto) Lymph # (Auto) [place] # (Auto) Eos # (Auto) Baso # (Auto) PT INR APTT pO2 VBG pH VBG pCO2 VBG HCO3 VBG Total CO2 VBG O2 Sat (Calc) VBG Base Excess VBG Potassium Glucose Lactate Sodium Potassium Chloride Carbon Dioxide Anion Gap BUN Creatinine Est GFR ( Amer) Est GFR (Non-Af Amer) POC Glucose (mg/dL) Random Glucose Lactic Acid 0.9 Calcium Phosphorus Magnesium Total Bilirubin AST ALT Alkaline Phosphatase Troponin I NT-Pro-B Natriuret Pep Total Protein Albumin Globulin Albumin/Globulin Ratio Venous Blood Potassium Urine Color Urine Clarity Urine pH Ur Specific [place] Urine Protein Urine Glucose (UA) Urine Ketones Urine Blood Urine Nitrate Urine Bilirubin Urine Urobilinogen Ur Leukocyte Esterase Urine WBC (Auto) Urine RBC (Auto) Ur Squamous Epith Cells Hyaline Casts Stool Occult Blood Digoxin Urine Opiates Screen Urine Methadone Screen Ur Barbiturates Screen Ur Phencyclidine Scrn Ur Amphetamines Screen U Benzodiazepines Scrn U Oth Cocaine Metabols U Cannabinoids Screen C. difficile Ag & Toxin EKG/Cardiology Studies: Cardiology / EKG Studies 01/29/18 09:45 EKG [ELECTROCARDIOGRAM] Stat Comment: Mode Of Transportation: BED Reason For Exam: cp Isolation: Contact 01/29/18 10:03 ELECTROCARDIOGRAM Stat Comment: Mode Of Transportation: Reason For Exam: Sepsis Patient Fingerstick Blood Sugar Results: 136 Critical Care Progress Note - Nutrition Nutrition: Nutrition Category Date Time Status Heart Healthy Diet [DIET] Diets 01/29/18 Dinner Active Assessment/Plan - Assessment and Plan (Free Text) Assessment: This is an 82 year old male with PMHx of HTN, T2DM, Hypercholesterolemia, Hypothyroidism, Atrial Fibrillation on Xarelto, HF with Systolic 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 Plan: Neuro: A: CVA with left sided deficient, Dementia Cardio: A: Atrial Fibrillation on Xarelto, HF with Systolic Dysfunction LVEF 35-40%, HTN , Hypercholesterolemia GI: - See ID Endo: A: T2DM A: Hypothyroidism ID: A: C. Diff Colitis - + CDiff, Contact Precautions - Initially started on IV cipro, flagyl, zosyn - Currently on Vanco 500mg QID x 14 days A: Bladder outlet obstruction? Cystitis? - CT Ab/pelv: Moderate enlargement of the prostate gland with median lobe hypertrophy indenting on the base of the urinary bladder with presumable bladder outlet obstruction and cystitis. Clinical correlation and follow-up is advised A: Previous admission on 01/03/2018 for Pneumonia and ESBL + bacteremia : A: BPH - Noted on CT scan - Flomax resumed Disposition: Patient transferred to telemetry. Elissa Wells Dr., DO, PGY-1 <Park Clay M - Last Filed: 01/30/18 12:48> CCU Objective - Vital Signs / Intake & Output Vital Signs (Last 4 hours): Vital Signs Temp Pulse Resp BP Pulse Ox 01/30/18 12:00 98.3 F 75 18 99 01/30/18 11:41 69 26 H 103/60 97 01/30/18 11:40 81 01/30/18 11:36 93 H 01/30/18 11:17 72 22 94/50 L 98 01/30/18 11:00 73 16 98 01/30/18 10:00 88 26 H 100 01/30/18 09:46 134/83 01/30/18 09:41 86 19 134/83 99 01/30/18 09:00 89 18 100 Intake and Output (Last 8hrs): Intake & Output 01/29/18 01/30/18 01/30/18 22:59 06:59 14:59 Intake Total 2150 770 Output Total 350 1320 335 Balance -350 830 435 Weight 178 lb 2.136 oz Intake: Intake, IV Amount 2100 550 Left Antecubital 400 500 Left Proximal Port 1700 50 Antecubital Right Hand 0 Oral 50 220 Output: Urine 350 970 335 Urethral ([place]) 970 335 Stool 350 Other: Voiding Method Indwelling Catheter # Bowel Movements 1 2 - Medications Active Medications: Active Medications Generic Name Dose Route Start Last Admin Trade Name Freq PRN Reason Stop Dose Admin Aspirin 81 mg 01/30/18 10:00 01/30/18 10:29 Ecotrin PO 81 mg DAILY JESSE Administration Ergocalciferol 1 cap 02/05/18 10:00 Drisdol 50,000 Intl Units Cap PO QWK JESSE Sodium Bicarbonate 150 meq/ 1,000 mls @ 100 mls/hr 01/30/18 10:03 01/30/18 11 :15 Dextrose IV 100 mls/hr .Q10H JESSE Administration Insulin Human Regular 0 unit 01/29/18 22:00 01/30/18 12:16 Novolin R SC 1 unit ACHS JESSE Administration Protocol Levothyroxine Sodium 25 mcg 01/30/18 06:30 01/30/18 06:45 Synthroid PO 25 mcg DAILY@0630 JESSE Administration Pantoprazole Sodium 20 mg 01/30/18 10:00 01/30/18 09:46 Protonix Ec Tab PO 20 mg DAILY JESSE Administration Rivaroxaban 20 mg 01/30/18 10:00 01/30/18 09:46 Xarelto PO 20 mg DAILY JESSE Administration Rosuvastatin Calcium 10 mg 01/29/18 22:00 01/29/18 23:09 Crestor PO 10 mg HS JESSE Administration Saccharomyces Boulardii 250 mg 01/30/18 18:00 Florastor PO BID JESSE Tamsulosin HCl 0.4 mg 01/30/18 10:00 01/30/18 09:46 Flomax PO 0.4 mg DAILY JESSE Administration Vancomycin HCl 500 mg 01/30/18 10:00 01/30/18 10:29 Vancocin (Oral Or Rectal Use) PO 02/13/18 10:01 500 mg QID JESSE Administration Protocol - Patient Studies Lab Studies: Microbiology Studies 01/29/18 21:41 MRSA Culture (Admit) - Final Nose MRSA NOT DETECTED 01/29/18 10:40 Urine Culture - Final Urine,Random No Growth (<1,000 CFU/ML) Lab Studies 01/30/18 01/30/18 01/30/18 Range/Units 11:33 08:01 06:30 WBC (4.8-10.8) K/uL RBC (4.40-5.90) Mil/uL Hgb (12.0-18.0) g/dL Hct (35.0-51.0) % MCV (80.0-94.0) fL MCH (27.0-31.0) pg MCHC (33.0-37.0) g/dL RDW (11.5-14.5) % Plt Count (130-400) K/uL MPV (7.2-11.7) fL Neut % (Auto) (50.0-75.0) % Lymph % (Auto) (20.0-40.0) % [place] % (Auto) (0.0-10.0) % Eos % (Auto) (0.0-4.0) % Baso % (Auto) (0.0-2.0) % Neut # (Auto) (1.8-7.0) K/uL Lymph # (Auto) (1.0-4.3) K/uL [place] # (Auto) (0.0-0.8) K/uL Eos # (Auto) (0.0-0.7) K/uL Baso # (Auto) (0.0-0.2) K/uL pO2 (30-55) mm/Hg VBG pH (7.32-7.43) VBG pCO2 (40-60) mmHg VBG HCO3 mmol/L VBG Total CO2 (22-28) mmol/L VBG O2 Sat (Calc) (40-65) % VBG Base Excess (0.0-2.0) mmol/L VBG Potassium (3.6-5.2) mmol/L Sodium (132-148) mmol/l Chloride (98-107) mmol/L Glucose (75-110) mg/dl Lactate (0.7-2.1) mmol/L Potassium (3.6-5.2) mmol/L Carbon Dioxide (22-30) mmol/L Anion Gap (10-20) BUN (9-20) mg/dL Creatinine (0.8-1.5) mg/dL Est GFR ( Amer) Est GFR (Non-Af Amer) POC Glucose (mg/dL) 156 H 118 H (65-110) mg/dL Random Glucose (75-110) mg/dL Lactic Acid 0.9 (0.7-2.1) mmol/L Calcium (8.6-10.4) mg/dl Venous Blood Potassium (3.6-5.2) mmol/L Stool Occult Blood (NEGATIVE) Urine Opiates Screen (NEGATIVE) Urine Methadone Screen (NEGATIVE) Ur Barbiturates Screen (NEGATIVE) Ur Phencyclidine Scrn (NEGATIVE) Ur Amphetamines Screen (NEGATIVE) U Benzodiazepines Scrn (NEGATIVE) U Oth Cocaine Metabols (NEGATIVE) U Cannabinoids Screen (NEGATIVE) C. difficile Ag & Toxin (NEGATIVE) 01/30/18 01/30/18 01/30/18 Range/Units 06:30 06:30 05:42 WBC 7.3 (4.8-10.8) K/uL RBC 3.69 L (4.40-5.90) Mil/uL Hgb 10.7 L (12.0-18.0) g/dL Hct 31.4 L (35.0-51.0) % MCV 85.2 (80.0-94.0) fL MCH 28.9 (27.0-31.0) pg MCHC 33.9 (33.0-37.0) g/dL RDW 14.5 (11.5-14.5) % Plt Count 260 (130-400) K/uL MPV 7.4 (7.2-11.7) fL Neut % (Auto) 64.8 (50.0-75.0) % Lymph % (Auto) 17.7 L (20.0-40.0) % [place] % (Auto) 15.0 H (0.0-10.0) % Eos % (Auto) 2.2 (0.0-4.0) % Baso % (Auto) 0.3 (0.0-2.0) % Neut # (Auto) 4.7 (1.8-7.0) K/uL Lymph # (Auto) 1.3 (1.0-4.3) K/uL [place] # (Auto) 1.1 H (0.0-0.8) K/uL Eos # (Auto) 0.2 (0.0-0.7) K/uL Baso # (Auto) 0.0 (0.0-0.2) K/uL pO2 24 L (30-55) mm/Hg VBG pH 7.43 (7.32-7.43) VBG pCO2 41 (40-60) mmHg VBG HCO3 25.5 mmol/L VBG Total CO2 28.5 H (22-28) mmol/L VBG O2 Sat (Calc) 47.0 (40-65) % VBG Base Excess 2.6 H (0.0-2.0) mmol/L VBG Potassium 3.0 L (3.6-5.2) mmol/L Sodium 137 135.0 (132-148) mmol/l Chloride 104 104.0 (98-107) mmol/L Glucose 130 H (75-110) mg/dl Lactate 1.3 (0.7-2.1) mmol/L Potassium 3.1 L (3.6-5.2) mmol/L Carbon Dioxide 25 (22-30) mmol/L Anion Gap 12 (10-20) BUN 32 H (9-20) mg/dL Creatinine 1.5 (0.8-1.5) mg/dL Est GFR ( Amer) 54 Est GFR (Non-Af Amer) 45 POC Glucose (mg/dL) (65-110) mg/dL Random Glucose 118 H (75-110) mg/dL Lactic Acid (0.7-2.1) mmol/L Calcium 7.2 L (8.6-10.4) mg/dl Venous Blood Potassium 3.0 L (3.6-5.2) mmol/L Stool Occult Blood (NEGATIVE) Urine Opiates Screen (NEGATIVE) Urine Methadone Screen (NEGATIVE) Ur Barbiturates Screen (NEGATIVE) Ur Phencyclidine Scrn (NEGATIVE) Ur Amphetamines Screen (NEGATIVE) U Benzodiazepines Scrn (NEGATIVE) U Oth Cocaine Metabols (NEGATIVE) U Cannabinoids Screen (NEGATIVE) C. difficile Ag & Toxin (NEGATIVE) 01/29/18 01/29/18 01/29/18 Range/Units 21:56 19:20 18:44 WBC (4.8-10.8) K/uL RBC (4.40-5.90) Mil/uL Hgb (12.0-18.0) g/dL Hct (35.0-51.0) % MCV (80.0-94.0) fL MCH (27.0-31.0) pg MCHC (33.0-37.0) g/dL RDW (11.5-14.5) % Plt Count (130-400) K/uL MPV (7.2-11.7) fL Neut % (Auto) (50.0-75.0) % Lymph % (Auto) (20.0-40.0) % [place] % (Auto) (0.0-10.0) % Eos % (Auto) (0.0-4.0) % Baso % (Auto) (0.0-2.0) % Neut # (Auto) (1.8-7.0) K/uL Lymph # (Auto) (1.0-4.3) K/uL [place] # (Auto) (0.0-0.8) K/uL Eos # (Auto) (0.0-0.7) K/uL Baso # (Auto) (0.0-0.2) K/uL pO2 (30-55) mm/Hg VBG pH (7.32-7.43) VBG pCO2 (40-60) mmHg VBG HCO3 mmol/L VBG Total CO2 (22-28) mmol/L VBG O2 Sat (Calc) (40-65) % VBG Base Excess (0.0-2.0) mmol/L VBG Potassium (3.6-5.2) mmol/L Sodium (132-148) mmol/l Chloride (98-107) mmol/L Glucose (75-110) mg/dl Lactate (0.7-2.1) mmol/L Potassium (3.6-5.2) mmol/L Carbon Dioxide (22-30) mmol/L Anion Gap (10-20) BUN (9-20) mg/dL Creatinine (0.8-1.5) mg/dL Est GFR ( Amer) Est GFR (Non-Af Amer) POC Glucose (mg/dL) 136 H (65-110) mg/dL Random Glucose (75-110) mg/dL Lactic Acid 6.2 H* (0.7-2.1) mmol/L Calcium (8.6-10.4) mg/dl Venous Blood Potassium (3.6-5.2) mmol/L Stool Occult Blood (NEGATIVE) Urine Opiates Screen Negative (NEGATIVE) Urine Methadone Screen Negative (NEGATIVE) Ur Barbiturates Screen Negative (NEGATIVE) Ur Phencyclidine Scrn Negative (NEGATIVE) Ur Amphetamines Screen Negative (NEGATIVE) U Benzodiazepines Scrn Negative (NEGATIVE) U Oth Cocaine Metabols Negative (NEGATIVE) U Cannabinoids Screen Negative (NEGATIVE) C. difficile Ag & Toxin (NEGATIVE) 01/29/18 01/29/18 01/29/18 Range/Units 18:00 17:43 13:37 WBC (4.8-10.8) K/uL RBC (4.40-5.90) Mil/uL Hgb (12.0-18.0) g/dL Hct (35.0-51.0) % MCV (80.0-94.0) fL MCH (27.0-31.0) pg MCHC (33.0-37.0) g/dL RDW (11.5-14.5) % Plt Count (130-400) K/uL MPV (7.2-11.7) fL Neut % (Auto) (50.0-75.0) % Lymph % (Auto) (20.0-40.0) % [place] % (Auto) (0.0-10.0) % Eos % (Auto) (0.0-4.0) % Baso % (Auto) (0.0-2.0) % Neut # (Auto) (1.8-7.0) K/uL Lymph # (Auto) (1.0-4.3) K/uL [place] # (Auto) (0.0-0.8) K/uL Eos # (Auto) (0.0-0.7) K/uL Baso # (Auto) (0.0-0.2) K/uL pO2 16 L (30-55) mm/Hg VBG pH 7.36 (7.32-7.43) VBG pCO2 40 (40-60) mmHg VBG HCO3 20.7 mmol/L VBG Total CO2 23.8 (22-28) mmol/L VBG O2 Sat (Calc) 23.6 L (40-65) % VBG Base Excess -2.7 L (0.0-2.0) mmol/L VBG Potassium 2.6 L (3.6-5.2) mmol/L Sodium 137.0 (132-148) mmol/l Chloride 104.0 (98-107) mmol/L Glucose 88 (75-110) mg/dl Lactate 2.9 H (0.7-2.1) mmol/L Potassium (3.6-5.2) mmol/L Carbon Dioxide (22-30) mmol/L Anion Gap (10-20) BUN (9-20) mg/dL Creatinine (0.8-1.5) mg/dL Est GFR ( Amer) Est GFR (Non-Af Amer) POC Glucose (mg/dL) (65-110) mg/dL Random Glucose (75-110) mg/dL Lactic Acid (0.7-2.1) mmol/L Calcium (8.6-10.4) mg/dl Venous Blood Potassium 2.6 L (3.6-5.2) mmol/L Stool Occult Blood Positive H (NEGATIVE) Urine Opiates Screen (NEGATIVE) Urine Methadone Screen (NEGATIVE) Ur Barbiturates Screen (NEGATIVE) Ur Phencyclidine Scrn (NEGATIVE) Ur Amphetamines Screen (NEGATIVE) U Benzodiazepines Scrn (NEGATIVE) U Oth Cocaine Metabols (NEGATIVE) U Cannabinoids Screen (NEGATIVE) C. difficile Ag & Toxin Positive H (NEGATIVE) Laboratory Results - last 24 hr 01/29/18 01/29/18 01/29/18 13:37 17:43 18:00 WBC RBC Hgb Hct MCV MCH MCHC RDW Plt Count MPV Neut % (Auto) Lymph % (Auto) [place] % (Auto) Eos % (Auto) Baso % (Auto) Neut # (Auto) Lymph # (Auto) [place] # (Auto) Eos # (Auto) Baso # (Auto) pO2 16 L VBG pH 7.36 VBG pCO2 40 VBG HCO3 20.7 VBG Total CO2 23.8 VBG O2 Sat (Calc) 23.6 L VBG Base Excess -2.7 L VBG Potassium 2.6 L Sodium 137.0 Chloride 104.0 Glucose 88 Lactate 2.9 H Potassium Carbon Dioxide Anion Gap BUN Creatinine Est GFR ( Amer) Est GFR (Non-Af Amer) POC Glucose (mg/dL) Random Glucose Lactic Acid Calcium Venous Blood Potassium 2.6 L Stool Occult Blood Positive H Urine Opiates Screen Urine Methadone Screen Ur Barbiturates Screen Ur Phencyclidine Scrn Ur Amphetamines Screen U Benzodiazepines Scrn U Oth Cocaine Metabols U Cannabinoids Screen C. difficile Ag & Toxin Positive H 01/29/18 01/29/18 01/29/18 18:44 19:20 21:56 WBC RBC Hgb Hct MCV MCH MCHC RDW Plt Count MPV Neut % (Auto) Lymph % (Auto) [place] % (Auto) Eos % (Auto) Baso % (Auto) Neut # (Auto) Lymph # (Auto) [place] # (Auto) Eos # (Auto) Baso # (Auto) pO2 VBG pH VBG pCO2 VBG HCO3 VBG Total CO2 VBG O2 Sat (Calc) VBG Base Excess VBG Potassium Sodium Chloride Glucose Lactate Potassium Carbon Dioxide Anion Gap BUN Creatinine Est GFR ( Amer) Est GFR (Non-Af Amer) POC Glucose (mg/dL) 136 H Random Glucose Lactic Acid 6.2 H* Calcium Venous Blood Potassium Stool Occult Blood Urine Opiates Screen Negative Urine Methadone Screen Negative Ur Barbiturates Screen Negative Ur Phencyclidine Scrn Negative Ur Amphetamines Screen Negative U Benzodiazepines Scrn Negative U Oth Cocaine Metabols Negative U Cannabinoids Screen Negative C. difficile Ag & Toxin 01/30/18 01/30/18 01/30/18 05:42 06:30 06:30 WBC 7.3 RBC 3.69 L Hgb 10.7 L Hct 31.4 L MCV 85.2 MCH 28.9 MCHC 33.9 RDW 14.5 Plt Count 260 MPV 7.4 Neut % (Auto) 64.8 Lymph % (Auto) 17.7 L [place] % (Auto) 15.0 H Eos % (Auto) 2.2 Baso % (Auto) 0.3 Neut # (Auto) 4.7 Lymph # (Auto) 1.3 [place] # (Auto) 1.1 H Eos # (Auto) 0.2 Baso # (Auto) 0.0 pO2 24 L VBG pH 7.43 VBG pCO2 41 VBG HCO3 25.5 VBG Total CO2 28.5 H VBG O2 Sat (Calc) 47.0 VBG Base Excess 2.6 H VBG Potassium 3.0 L Sodium 135.0 137 Chloride 104.0 104 Glucose 130 H Lactate 1.3 Potassium 3.1 L Carbon Dioxide 25 Anion Gap 12 BUN 32 H Creatinine 1.5 Est GFR ( Amer) 54 Est GFR (Non-Af Amer) 45 POC Glucose (mg/dL) Random Glucose 118 H Lactic Acid Calcium 7.2 L Venous Blood Potassium 3.0 L Stool Occult Blood Urine Opiates Screen Urine Methadone Screen Ur Barbiturates Screen Ur Phencyclidine Scrn Ur Amphetamines Screen U Benzodiazepines Scrn U Oth Cocaine Metabols U Cannabinoids Screen C. difficile Ag & Toxin 01/30/18 01/30/18 01/30/18 06:30 08:01 11:33 WBC RBC Hgb Hct MCV MCH MCHC RDW Plt Count MPV Neut % (Auto) Lymph % (Auto) [place] % (Auto) Eos % (Auto) Baso % (Auto) Neut # (Auto) Lymph # (Auto) [place] # (Auto) Eos # (Auto) Baso # (Auto) pO2 VBG pH VBG pCO2 VBG HCO3 VBG Total CO2 VBG O2 Sat (Calc) VBG Base Excess VBG Potassium Sodium Chloride Glucose Lactate Potassium Carbon Dioxide Anion Gap BUN Creatinine Est GFR ( Amer) Est GFR (Non-Af Amer) POC Glucose (mg/dL) 118 H 156 H Random Glucose Lactic Acid 0.9 Calcium Venous Blood Potassium Stool Occult Blood Urine Opiates Screen Urine Methadone Screen Ur Barbiturates Screen Ur Phencyclidine Scrn Ur Amphetamines Screen U Benzodiazepines Scrn U Oth Cocaine Metabols U Cannabinoids Screen C. difficile Ag & Toxin Critical Care Progress Note - Nutrition Nutrition: Nutrition Category Date Time Status Heart Healthy Diet [DIET] Diets 01/29/18 Dinner Active Assessment/Plan - Assessment and Plan (Free Text) Plan: Patient seen and examined at bedside. Patient more awake, alert. 1 BM today. no fevers, abdominal pain improving -C. diff;continue IV flagyl and po vanco -ARI:improving, continue IVF at 100ml/hr, hold nephrotoxic drugs, avoid ACXE/ARB -continue all other home medications -Patient remains hemodynamically stable. - Date & Time Date: 01/30/18 Time: 12:48
[2018-01-30] MEDS: Pantoprazole 20 mg EC Tab PO SCH (09:46)
[2018-01-30] MEDS: Vancomycin 125 MG/5 ML SOLN (ORAL/RECTAL) PO SCH ×4 (10:29→21:58)
--- NOTE | 2018-01-30 10:54 | CP.PCM.CON ---
Addendum entered and electronically signed by Byron Peralta DO 01/30/18 10:56 : *Family history is noncontributory Original Note: <Byron Peralta - Last Filed: 01/30/18 10:48> History of Present Illness - History of Present Illness History of Present Illness: PGY5 GI Fellow Consult Note Patient is an 82yo male with PMHx significant for dementia, CVA with left-sided deficits, PVD, A-fib on Xarelto, systolic CHF (EF 35-40%), AV sclerosis, CAD who presented with vomiting, diarrhea and generalized weakness for 2 days. The patient is unable to provide any history given dementia. HE was brought to the ER due to persistent nausea/vomiting/diarrhea for the last two days. Lab work revealed lactic acidosis, ARI and CT without contrast showed diffuse liver cysts as well as nonspecific colitis. C diff antigen is positive. Patient was started on IV Cipro, Flagyl and Zosyn. 12 system ROS limited given dementia. 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 Past Patient History - Infectious Disease Hx of Infectious Diseases: None - Past Medical History & Family History Past Medical History?: Yes - Past Social History Smoking Status: Former Smoker - CARDIAC Hx Cardiac Disorders: Yes Hx Atrial Fibrillation: Yes Hx Congestive Heart Failure: Yes Hx Hypercholesterolemia: Yes Hx Hypertension: Yes - PULMONARY Hx Respiratory Disorders: No - NEUROLOGICAL Hx Neurological Disorder: Yes Hx Alzheimer's Disease: Yes Hx Dementia: Yes - HEENT Hx HEENT Problems: No - RENAL Hx Chronic Kidney Disease: No - ENDOCRINE/METABOLIC Hx Endocrine Disorders: Yes Hx Diabetes Mellitus Type 2: Yes Hx Hypothyroidism: Yes - HEMATOLOGICAL/ONCOLOGICAL Hx Blood Disorders: No - INTEGUMENTARY Hx Dermatological Problems: No - MUSCULOSKELETAL/RHEUMATOLOGICAL Hx Falls: No - GASTROINTESTINAL Hx Gastrointestinal Disorders: No - GENITOURINARY/GYNECOLOGICAL Hx Genitourinary Disorders: Yes Hx Prostate Problems: Yes (ENLARGED PROSTATE) - PSYCHIATRIC Hx Substance Use: No - SURGICAL HISTORY Hx Surgeries: Yes Hx Carotid Endarterectomy: Yes (RIGHT) - ANESTHESIA Hx Anesthesia: Yes Hx Anesthesia Reactions: No Hx Malignant Hyperthermia: No Has any member of the family had a problem w/ anesthesia?: No Meds Allergies/Adverse Reactions: Allergies Allergy/AdvReac Type Severity Reaction Status Date / Time No Known Allergies Allergy Verified 01/29/18 09:47 - Medications Medications: Current Medications Aspirin (Ecotrin) 81 mg PO DAILY [facility] Last Admin: 01/30/18 10:29 Dose: 81 mg Ergocalciferol (Drisdol 50,000 Intl Units Cap) 1 cap PO QWK [facility] Sodium Bicarbonate 150 meq/ (Dextrose) 1,000 mls @ 100 mls/hr IV .Q10H [facility] Insulin Human Regular (Novolin R) 0 unit SC ACHS [facility] PRN Reason: Protocol Last Admin: 01/30/18 08:05 Dose: Not Given Levothyroxine Sodium (Synthroid) 25 mcg PO DAILY@0630 [facility] Last Admin: 01/30/18 06:45 Dose: 25 mcg Pantoprazole Sodium (Protonix Ec Tab) 20 mg PO DAILY [facility] Last Admin: 01/30/18 09:46 Dose: 20 mg Rivaroxaban (Xarelto) 20 mg PO DAILY [facility] Last Admin: 01/30/18 09:46 Dose: 20 mg Rosuvastatin Calcium (Crestor) 10 mg PO [facility] Last Admin: 01/29/18 23:09 Dose: 10 mg Saccharomyces Boulardii (Florastor) 250 mg PO BID [facility] Tamsulosin HCl (Flomax) 0.4 mg PO DAILY [facility] Last Admin: 01/30/18 09:46 Dose: 0.4 mg Vancomycin HCl (Vancocin (Oral Or Rectal Use)) 500 mg PO QID [facility] PRN Reason: Protocol Stop: 02/13/18 10:01 Last Admin: 01/30/18 10:29 Dose: 500 mg Results - Vital Signs Recent Vital Signs: Last Vital Signs Temp 98.4 F 01/30/18 08:45 Pulse 88 01/30/18 10:00 Resp 26 H 01/30/18 10:00 BP 134/83 01/30/18 09:46 Pulse Ox 100 01/30/18 10:00 - Labs Result Diagrams: 01/30/18 06:30 01/30/18 06:30 Labs: Laboratory Results - last 24 hr 01/29/18 01/29/18 01/29/18 10:11 10:11 10:40 WBC RBC Hgb Hct MCV MCH MCHC RDW Plt Count MPV Neut % (Auto) Lymph % (Auto) Tucker % (Auto) Eos % (Auto) Baso % (Auto) Neut # (Auto) Lymph # (Auto) Tucker # (Auto) Eos # (Auto) Baso # (Auto) pO2 VBG pH VBG pCO2 VBG HCO3 VBG Total CO2 VBG O2 Sat (Calc) VBG Base Excess VBG Potassium Glucose Lactate Sodium 137 Potassium 3.6 Chloride 97 L Carbon Dioxide 24 Anion Gap 20 BUN 45 H Creatinine 2.6 H Est GFR ( Amer) 29 Est GFR (Non-Af Amer) 24 POC Glucose (mg/dL) Random Glucose 126 H Lactic Acid Calcium 8.5 L Phosphorus 3.9 Magnesium 2.3 Total Bilirubin 0.5 AST 32 ALT 22 Alkaline Phosphatase 80 Troponin I < 0.0120 NT-Pro-B Natriuret Pep 962 H Total Protein 7.7 Albumin 4.0 Globulin 3.7 Albumin/Globulin Ratio 1.1 Venous Blood Potassium Urine Color Yellow Urine Clarity Clear Urine pH 5.0 Ur Specific Cable 1.014 Urine Protein Negative Urine Glucose (UA) Normal Urine Ketones Negative Urine Blood Negative Urine Nitrate Negative Urine Bilirubin Negative Urine Urobilinogen Normal Ur Leukocyte Esterase Neg Urine WBC (Auto) 2 Urine RBC (Auto) 1 Ur Squamous Epith Cells < 1 Hyaline Casts 0-2 Stool Occult Blood Digoxin < 0.4 L Urine Opiates Screen Urine Methadone Screen Ur Barbiturates Screen Ur Phencyclidine Scrn Ur Amphetamines Screen U Benzodiazepines Scrn U Oth Cocaine Metabols U Cannabinoids Screen C. difficile Ag & Toxin 01/29/18 01/29/18 01/29/18 13:37 17:43 18:00 WBC RBC Hgb Hct MCV MCH MCHC RDW Plt Count MPV Neut % (Auto) Lymph % (Auto) Tucker % (Auto) Eos % (Auto) Baso % (Auto) Neut # (Auto) Lymph # (Auto) Tucker # (Auto) Eos # (Auto) Baso # (Auto) pO2 16 L VBG pH 7.36 VBG pCO2 40 VBG HCO3 20.7 VBG Total CO2 23.8 VBG O2 Sat (Calc) 23.6 L VBG Base Excess -2.7 L VBG Potassium 2.6 L Glucose 88 Lactate 2.9 H Sodium 137.0 Potassium Chloride 104.0 Carbon Dioxide Anion Gap BUN Creatinine Est GFR ( Amer) Est GFR (Non-Af Amer) POC Glucose (mg/dL) Random Glucose Lactic Acid Calcium Phosphorus Magnesium Total Bilirubin AST ALT Alkaline Phosphatase Troponin I NT-Pro-B Natriuret Pep Total Protein Albumin Globulin Albumin/Globulin Ratio Venous Blood Potassium 2.6 L Urine Color Urine Clarity Urine pH Ur Specific Cable Urine Protein Urine Glucose (UA) Urine Ketones Urine Blood Urine Nitrate Urine Bilirubin Urine Urobilinogen Ur Leukocyte Esterase Urine WBC (Auto) Urine RBC (Auto) Ur Squamous Epith Cells Hyaline Casts Stool Occult Blood Positive H Digoxin Urine Opiates Screen Urine Methadone Screen Ur Barbiturates Screen Ur Phencyclidine Scrn Ur Amphetamines Screen U Benzodiazepines Scrn U Oth Cocaine Metabols U Cannabinoids Screen C. difficile Ag & Toxin Positive H 01/29/18 01/29/18 01/29/18 18:44 19:20 21:56 WBC RBC Hgb Hct MCV MCH MCHC RDW Plt Count MPV Neut % (Auto) Lymph % (Auto) Tucker % (Auto) Eos % (Auto) Baso % (Auto) Neut # (Auto) Lymph # (Auto) Tucker # (Auto) Eos # (Auto) Baso # (Auto) pO2 VBG pH VBG pCO2 VBG HCO3 VBG Total CO2 VBG O2 Sat (Calc) VBG Base Excess VBG Potassium Glucose Lactate Sodium Potassium Chloride Carbon Dioxide Anion Gap BUN Creatinine Est GFR ( Amer) Est GFR (Non-Af Amer) POC Glucose (mg/dL) 136 H Random Glucose Lactic Acid 6.2 H* Calcium Phosphorus Magnesium Total Bilirubin AST ALT Alkaline Phosphatase Troponin I NT-Pro-B Natriuret Pep Total Protein Albumin Globulin Albumin/Globulin Ratio Venous Blood Potassium Urine Color Urine Clarity Urine pH Ur Specific Cable Urine Protein Urine Glucose (UA) Urine Ketones Urine Blood Urine Nitrate Urine Bilirubin Urine Urobilinogen Ur Leukocyte Esterase Urine WBC (Auto) Urine RBC (Auto) Ur Squamous Epith Cells Hyaline Casts Stool Occult Blood Digoxin Urine Opiates Screen Negative Urine Methadone Screen Negative Ur Barbiturates Screen Negative Ur Phencyclidine Scrn Negative Ur Amphetamines Screen Negative U Benzodiazepines Scrn Negative U Oth Cocaine Metabols Negative U Cannabinoids Screen Negative C. difficile Ag & Toxin 01/30/18 01/30/18 01/30/18 05:42 06:30 06:30 WBC 7.3 RBC 3.69 L Hgb 10.7 L Hct 31.4 L MCV 85.2 MCH 28.9 MCHC 33.9 RDW 14.5 Plt Count 260 MPV 7.4 Neut % (Auto) 64.8 Lymph % (Auto) 17.7 L Tucker % (Auto) 15.0 H Eos % (Auto) 2.2 Baso % (Auto) 0.3 Neut # (Auto) 4.7 Lymph # (Auto) 1.3 Tucker # (Auto) 1.1 H Eos # (Auto) 0.2 Baso # (Auto) 0.0 pO2 24 L VBG pH 7.43 VBG pCO2 41 VBG HCO3 25.5 VBG Total CO2 28.5 H VBG O2 Sat (Calc) 47.0 VBG Base Excess 2.6 H VBG Potassium 3.0 L Glucose 130 H Lactate 1.3 Sodium 135.0 137 Potassium 3.1 L Chloride 104.0 104 Carbon Dioxide 25 Anion Gap 12 BUN 32 H Creatinine 1.5 Est GFR ( Amer) 54 Est GFR (Non-Af Amer) 45 POC Glucose (mg/dL) Random Glucose 118 H Lactic Acid Calcium 7.2 L Phosphorus Magnesium Total Bilirubin AST ALT Alkaline Phosphatase Troponin I NT-Pro-B Natriuret Pep Total Protein Albumin Globulin Albumin/Globulin Ratio Venous Blood Potassium 3.0 L Urine Color Urine Clarity Urine pH Ur Specific Cable Urine Protein Urine Glucose (UA) Urine Ketones Urine Blood Urine Nitrate Urine Bilirubin Urine Urobilinogen Ur Leukocyte Esterase Urine WBC (Auto) Urine RBC (Auto) Ur Squamous Epith Cells Hyaline Casts Stool Occult Blood Digoxin Urine Opiates Screen Urine Methadone Screen Ur Barbiturates Screen Ur Phencyclidine Scrn Ur Amphetamines Screen U Benzodiazepines Scrn U Oth Cocaine Metabols U Cannabinoids Screen C. difficile Ag & Toxin 01/30/18 01/30/18 06:30 08:01 WBC RBC Hgb Hct MCV MCH MCHC RDW Plt Count MPV Neut % (Auto) Lymph % (Auto) Tucker % (Auto) Eos % (Auto) Baso % (Auto) Neut # (Auto) Lymph # (Auto) Tucker # (Auto) Eos # (Auto) Baso # (Auto) pO2 VBG pH VBG pCO2 VBG HCO3 VBG Total CO2 VBG O2 Sat (Calc) VBG Base Excess VBG Potassium Glucose Lactate Sodium Potassium Chloride Carbon Dioxide Anion Gap BUN Creatinine Est GFR ( Amer) Est GFR (Non-Af Amer) POC Glucose (mg/dL) 118 H Random Glucose Lactic Acid 0.9 Calcium Phosphorus Magnesium Total Bilirubin AST ALT Alkaline Phosphatase Troponin I NT-Pro-B Natriuret Pep Total Protein Albumin Globulin Albumin/Globulin Ratio Venous Blood Potassium Urine Color Urine Clarity Urine pH Ur Specific Cable Urine Protein Urine Glucose (UA) Urine Ketones Urine Blood Urine Nitrate Urine Bilirubin Urine Urobilinogen Ur Leukocyte Esterase Urine WBC (Auto) Urine RBC (Auto) Ur Squamous Epith Cells Hyaline Casts Stool Occult Blood Digoxin Urine Opiates Screen Urine Methadone Screen Ur Barbiturates Screen Ur Phencyclidine Scrn Ur Amphetamines Screen U Benzodiazepines Scrn U Oth Cocaine Metabols U Cannabinoids Screen C. difficile Ag & Toxin Assessment & Plan - Assessment and Plan (Free Text) Assessment: Patient is an 82yo male with PMHx significant for dementia, CVA with left-sided deficits, PVD, A-fib on Xarelto, systolic CHF (EF 35-40%), AV sclerosis, CAD who presented with vomiting, diarrhea and generalized weakness for 2 days -C. diff colitis -ARI -Lactic acidosis, resolved - possibly spurious lab result Plan: -Recommend narrowing coverage to Cipro/Flagyl in setting of C diff colitis, coverage for possible ischemic colitis -Patient currently does not meet criteria for severe CDI and thus IV flagyl should be sufficient to treat CDI, would not recommend PO Vancomycin currently -Monitor I/O -Diet as tolerated - Date & Time Date: 01/30/18 Time: 09:30 <Michael Bennett - Last Filed: 01/30/18 11:00> Meds - Medications Medications: Current Medications Aspirin (Ecotrin) 81 mg PO DAILY [facility] Last Admin: 01/30/18 10:29 Dose: 81 mg Ergocalciferol (Drisdol 50,000 Intl Units Cap) 1 cap PO QWK [facility] Sodium Bicarbonate 150 meq/ (Dextrose) 1,000 mls @ 100 mls/hr IV .Q10H [facility] Insulin Human Regular (Novolin R) 0 unit SC ACHS [facility] PRN Reason: Protocol Last Admin: 01/30/18 08:05 Dose: Not Given Levothyroxine Sodium (Synthroid) 25 mcg PO DAILY@0630 [facility] Last Admin: 01/30/18 06:45 Dose: 25 mcg Pantoprazole Sodium (Protonix Ec Tab) 20 mg PO DAILY [facility] Last Admin: 01/30/18 09:46 Dose: 20 mg Rivaroxaban (Xarelto) 20 mg PO DAILY [facility] Last Admin: 01/30/18 09:46 Dose: 20 mg Rosuvastatin Calcium (Crestor) 10 mg PO HS [facility] Last Admin: 01/29/18 23:09 Dose: 10 mg Saccharomyces Boulardii (Florastor) 250 mg PO BID [facility] Tamsulosin HCl (Flomax) 0.4 mg PO DAILY [facility] Last Admin: 01/30/18 09:46 Dose: 0.4 mg Vancomycin HCl (Vancocin (Oral Or Rectal Use)) 500 mg PO QID [facility] PRN Reason: Protocol Stop: 02/13/18 10:01 Last Admin: 01/30/18 10:29 Dose: 500 mg Results - Vital Signs Recent Vital Signs: Last Vital Signs Temp 98.4 F 01/30/18 08:45 Pulse 88 01/30/18 10:00 Resp 26 H 01/30/18 10:00 BP 134/83 01/30/18 09:46 Pulse Ox 100 01/30/18 10:00 - Labs Result Diagrams: 01/30/18 06:30 01/30/18 06:30 Labs: Laboratory Results - last 24 hr 01/29/18 01/29/18 01/29/18 10:11 10:11 10:40 WBC RBC Hgb Hct MCV MCH MCHC RDW Plt Count MPV Neut % (Auto) Lymph % (Auto) Tucker % (Auto) Eos % (Auto) Baso % (Auto) Neut # (Auto) Lymph # (Auto) Tucker # (Auto) Eos # (Auto) Baso # (Auto) pO2 VBG pH VBG pCO2 VBG HCO3 VBG Total CO2 VBG O2 Sat (Calc) VBG Base Excess VBG Potassium Glucose Lactate Sodium 137 Potassium 3.6 Chloride 97 L Carbon Dioxide 24 Anion Gap 20 BUN 45 H Creatinine 2.6 H Est GFR ( Amer) 29 Est GFR (Non-Af Amer) 24 POC Glucose (mg/dL) Random Glucose 126 H Lactic Acid Calcium 8.5 L Phosphorus 3.9 Magnesium 2.3 Total Bilirubin 0.5 AST 32 ALT 22 Alkaline Phosphatase 80 Troponin I < 0.0120 NT-Pro-B Natriuret Pep 962 H Total Protein 7.7 Albumin 4.0 Globulin 3.7 Albumin/Globulin Ratio 1.1 Venous Blood Potassium Urine Color Yellow Urine Clarity Clear Urine pH 5.0 Ur Specific Cable 1.014 Urine Protein Negative Urine Glucose (UA) Normal Urine Ketones Negative Urine Blood Negative Urine Nitrate Negative Urine Bilirubin Negative Urine Urobilinogen Normal Ur Leukocyte Esterase Neg Urine WBC (Auto) 2 Urine RBC (Auto) 1 Ur Squamous Epith Cells < 1 Hyaline Casts 0-2 Stool Occult Blood Digoxin < 0.4 L Urine Opiates Screen Urine Methadone Screen Ur Barbiturates Screen Ur Phencyclidine Scrn Ur Amphetamines Screen U Benzodiazepines Scrn U Oth Cocaine Metabols U Cannabinoids Screen C. difficile Ag & Toxin 01/29/18 01/29/18 01/29/18 13:37 17:43 18:00 WBC RBC Hgb Hct MCV MCH MCHC RDW Plt Count MPV Neut % (Auto) Lymph % (Auto) Tucker % (Auto) Eos % (Auto) Baso % (Auto) Neut # (Auto) Lymph # (Auto) Tucker # (Auto) Eos # (Auto) Baso # (Auto) pO2 16 L VBG pH 7.36 VBG pCO2 40 VBG HCO3 20.7 VBG Total CO2 23.8 VBG O2 Sat (Calc) 23.6 L VBG Base Excess -2.7 L VBG Potassium 2.6 L Glucose 88 Lactate 2.9 H Sodium 137.0 Potassium Chloride 104.0 Carbon Dioxide Anion Gap BUN Creatinine Est GFR ( Amer) Est GFR (Non-Af Amer) POC Glucose (mg/dL) Random Glucose Lactic Acid Calcium Phosphorus Magnesium Total Bilirubin AST ALT Alkaline Phosphatase Troponin I NT-Pro-B Natriuret Pep Total Protein Albumin Globulin Albumin/Globulin Ratio Venous Blood Potassium 2.6 L Urine Color Urine Clarity Urine pH Ur Specific Cable Urine Protein Urine Glucose (UA) Urine Ketones Urine Blood Urine Nitrate Urine Bilirubin Urine Urobilinogen Ur Leukocyte Esterase Urine WBC (Auto) Urine RBC (Auto) Ur Squamous Epith Cells Hyaline Casts Stool Occult Blood Positive H Digoxin Urine Opiates Screen Urine Methadone Screen Ur Barbiturates Screen Ur Phencyclidine Scrn Ur Amphetamines Screen U Benzodiazepines Scrn U Oth Cocaine Metabols U Cannabinoids Screen C. difficile Ag & Toxin Positive H 01/29/18 01/29/18 01/29/18 18:44 19:20 21:56 WBC RBC Hgb Hct MCV MCH MCHC RDW Plt Count MPV Neut % (Auto) Lymph % (Auto) Tucker % (Auto) Eos % (Auto) Baso % (Auto) Neut # (Auto) Lymph # (Auto) Tucker # (Auto) Eos # (Auto) Baso # (Auto) pO2 VBG pH VBG pCO2 VBG HCO3 VBG Total CO2 VBG O2 Sat (Calc) VBG Base Excess VBG Potassium Glucose Lactate Sodium Potassium Chloride Carbon Dioxide Anion Gap BUN Creatinine Est GFR ( Amer) Est GFR (Non-Af Amer) POC Glucose (mg/dL) 136 H Random Glucose Lactic Acid 6.2 H* Calcium Phosphorus Magnesium Total Bilirubin AST ALT Alkaline Phosphatase Troponin I NT-Pro-B Natriuret Pep Total Protein Albumin Globulin Albumin/Globulin Ratio Venous Blood Potassium Urine Color Urine Clarity Urine pH Ur Specific Cable Urine Protein Urine Glucose (UA) Urine Ketones Urine Blood Urine Nitrate Urine Bilirubin Urine Urobilinogen Ur Leukocyte Esterase Urine WBC (Auto) Urine RBC (Auto) Ur Squamous Epith Cells Hyaline Casts Stool Occult Blood Digoxin Urine Opiates Screen Negative Urine Methadone Screen Negative Ur Barbiturates Screen Negative Ur Phencyclidine Scrn Negative Ur Amphetamines Screen Negative U Benzodiazepines Scrn Negative U Oth Cocaine Metabols Negative U Cannabinoids Screen Negative C. difficile Ag & Toxin 01/30/18 01/30/18 01/30/18 05:42 06:30 06:30 WBC 7.3 RBC 3.69 L Hgb 10.7 L Hct 31.4 L MCV 85.2 MCH 28.9 MCHC 33.9 RDW 14.5 Plt Count 260 MPV 7.4 Neut % (Auto) 64.8 Lymph % (Auto) 17.7 L Tucker % (Auto) 15.0 H Eos % (Auto) 2.2 Baso % (Auto) 0.3 Neut # (Auto) 4.7 Lymph # (Auto) 1.3 Tucker # (Auto) 1.1 H Eos # (Auto) 0.2 Baso # (Auto) 0.0 pO2 24 L VBG pH 7.43 VBG pCO2 41 VBG HCO3 25.5 VBG Total CO2 28.5 H VBG O2 Sat (Calc) 47.0 VBG Base Excess 2.6 H VBG Potassium 3.0 L Glucose 130 H Lactate 1.3 Sodium 135.0 137 Potassium 3.1 L Chloride 104.0 104 Carbon Dioxide 25 Anion Gap 12 BUN 32 H Creatinine 1.5 Est GFR ( Amer) 54 Est GFR (Non-Af Amer) 45 POC Glucose (mg/dL) Random Glucose 118 H Lactic Acid Calcium 7.2 L Phosphorus Magnesium Total Bilirubin AST ALT Alkaline Phosphatase Troponin I NT-Pro-B Natriuret Pep Total Protein Albumin Globulin Albumin/Globulin Ratio Venous Blood Potassium 3.0 L Urine Color Urine Clarity Urine pH Ur Specific Cable Urine Protein Urine Glucose (UA) Urine Ketones Urine Blood Urine Nitrate Urine Bilirubin Urine Urobilinogen Ur Leukocyte Esterase Urine WBC (Auto) Urine RBC (Auto) Ur Squamous Epith Cells Hyaline Casts Stool Occult Blood Digoxin Urine Opiates Screen Urine Methadone Screen Ur Barbiturates Screen Ur Phencyclidine Scrn Ur Amphetamines Screen U Benzodiazepines Scrn U Oth Cocaine Metabols U Cannabinoids Screen C. difficile Ag & Toxin 01/30/18 01/30/18 06:30 08:01 WBC RBC Hgb Hct MCV MCH MCHC RDW Plt Count MPV Neut % (Auto) Lymph % (Auto) Tucker % (Auto) Eos % (Auto) Baso % (Auto) Neut # (Auto) Lymph # (Auto) Tucker # (Auto) Eos # (Auto) Baso # (Auto) pO2 VBG pH VBG pCO2 VBG HCO3 VBG Total CO2 VBG O2 Sat (Calc) VBG Base Excess VBG Potassium Glucose Lactate Sodium Potassium Chloride Carbon Dioxide Anion Gap BUN Creatinine Est GFR ( Amer) Est GFR (Non-Af Amer) POC Glucose (mg/dL) 118 H Random Glucose Lactic Acid 0.9 Calcium Phosphorus Magnesium Total Bilirubin AST ALT Alkaline Phosphatase Troponin I NT-Pro-B Natriuret Pep Total Protein Albumin Globulin Albumin/Globulin Ratio Venous Blood Potassium Urine Color Urine Clarity Urine pH Ur Specific Cable Urine Protein Urine Glucose (UA) Urine Ketones Urine Blood Urine Nitrate Urine Bilirubin Urine Urobilinogen Ur Leukocyte Esterase Urine WBC (Auto) Urine RBC (Auto) Ur Squamous Epith Cells Hyaline Casts Stool Occult Blood Digoxin Urine Opiates Screen Urine Methadone Screen Ur Barbiturates Screen Ur Phencyclidine Scrn Ur Amphetamines Screen U Benzodiazepines Scrn U Oth Cocaine Metabols U Cannabinoids Screen C. difficile Ag & Toxin Attending/Attestation - Attestation I have personally seen and examined this patient.: Yes I have fully participated in the care of the patient.: Yes I have reviewed all pertinent clinical information: Yes Notes (Text): 01/30/18 10:58 82 year old male admitted with colitis. Stool positive for c.diff. Currently on broad spectrum abx. Would eventually taper to cover for C.diff, but consider additional coverage for ischemic colitis as well considering abnormal lactate on presentation (i.e. cipro/flagyl). Advance diet as tolerated.
[2018-01-30] MEDS: Sodium Bicarbonate 8.4% 150 MEQ in Dextrose 5% In Water 850 ML IV SCH ×3 (11:15→21:59)
[2018-01-30] MEDS ORDERED: (Novolin R) Insulin Human Regular 100 units/ml vial SC SCH (11:30)
[2018-01-30] MEDS ORDERED: Ciprofloxacin 400mg/200ml D5W 400 MG/200 ML BAG IVPB SCH (14:00)
--- NOTE | 2018-01-30 14:57 | CP.PCM.HP ---
Past Patient History - Infectious Disease Hx of Infectious Diseases: None - Past Medical History & Family History Past Medical History?: Yes Past Family History: Reviewed and not pertinent - Past Social History Smoking Status: Former Smoker Chewing Tobacco Use: No Alcohol: Occasional Drugs: Denies - CARDIAC Hx Cardia Arrhythmia: Yes (A FIB) Hx Congestive Heart Failure: Yes Hx Hypercholesterolemia: Yes Hx Hypertension: Yes - PULMONARY Hx Respiratory Disorders: No - NEUROLOGICAL Hx Alzheimer's Disease: Yes Hx Dementia: Yes - HEENT Hx HEENT Problems: No - RENAL Hx Chronic Kidney Disease: No - ENDOCRINE/METABOLIC Hx Hypothyroidism: Yes - HEMATOLOGICAL/ONCOLOGICAL Hx Blood Disorders: No - INTEGUMENTARY Hx Dermatological Problems: No - MUSCULOSKELETAL/RHEUMATOLOGICAL Hx Musculoskeletal Disorders: No Hx Falls: No - GASTROINTESTINAL Hx Gastrointestinal Disorders: No - GENITOURINARY/GYNECOLOGICAL Hx Genitourinary Disorders: Yes Hx Prostate Problems: Yes (ENLARGED PROSTATE) - PSYCHIATRIC Hx Substance Use: No - SURGICAL HISTORY Hx Carotid Endarterectomy: Yes (RIGHT) - ANESTHESIA Hx Anesthesia: Yes Hx Anesthesia Reactions: No Hx Malignant Hyperthermia: No Meds Allergies/Adverse Reactions: Allergies Allergy/AdvReac Type Severity Reaction Status Date / Time No Known Allergies Allergy Verified 01/29/18 09:47 Physical Exam - Constitutional Appears: Well - Head Exam Head Exam: ATRAUMATIC, NORMAL INSPECTION, NORMOCEPHALIC - Eye Exam Eye Exam: EOMI, Normal appearance, PERRL Pupil Exam: NORMAL ACCOMODATION, PERRL - ENT Exam ENT Exam: Mucous Membranes Moist, Normal Exam - Neck Exam Neck exam: Positive for: Normal Inspection - Respiratory Exam Respiratory Exam: Decreased Breath Sounds - Cardiovascular Exam Cardiovascular Exam: REGULAR RHYTHM, +S1, +S2 - GI/Abdominal Exam GI & Abdominal Exam: Diminished Bowel Sounds, Soft - Rectal Exam Rectal Exam: Deferred Results - Vital Signs Recent Vital Signs: Last Vital Signs Temp 98.3 F 01/30/18 12:00 Pulse 80 01/30/18 14:00 Resp 15 01/30/18 14:00 BP 94/53 L 01/30/18 13:41 Pulse Ox 98 01/30/18 14:00 - Labs Result Diagrams: 01/30/18 06:30 01/30/18 06:30 Labs: Laboratory Results - last 24 hr 01/29/18 01/29/18 01/29/18 17:43 18:00 18:44 WBC RBC Hgb Hct MCV MCH MCHC RDW Plt Count MPV Neut % (Auto) Lymph % (Auto) Glascock % (Auto) Eos % (Auto) Baso % (Auto) Neut # (Auto) Lymph # (Auto) Gl[place]ock # (Auto) Eos # (Auto) Baso # (Auto) pO2 VBG pH VBG pCO2 VBG HCO3 VBG Total CO2 VBG O2 Sat (Calc) VBG Base Excess VBG Potassium Sodium Chloride Glucose Lactate Potassium Carbon Dioxide Anion Gap BUN Creatinine Est GFR ( Amer) Est GFR (Non-Af Amer) POC Glucose (mg/dL) Random Glucose Lactic Acid Calcium Venous Blood Potassium Stool Occult Blood Positive H Urine Opiates Screen Negative Urine Methadone Screen Negative Ur Barbiturates Screen Negative Ur Phencyclidine Scrn Negative Ur Amphetamines Screen Negative U Benzodiazepines Scrn Negative U Oth Cocaine Metabols Negative U Cannabinoids Screen Negative C. difficile Ag & Toxin Positive H 01/29/18 01/29/18 01/30/18 19:20 21:56 05:42 WBC RBC Hgb Hct MCV MCH MCHC RDW Plt Count MPV Neut % (Auto) Lymph % (Auto) Gl[place]ock % (Auto) Eos % (Auto) Baso % (Auto) Neut # (Auto) Lymph # (Auto) Gl[place]ock # (Auto) Eos # (Auto) Baso # (Auto) pO2 24 L VBG pH 7.43 VBG pCO2 41 VBG HCO3 25.5 VBG Total CO2 28.5 H VBG O2 Sat (Calc) 47.0 VBG Base Excess 2.6 H VBG Potassium 3.0 L Sodium 135.0 Chloride 104.0 Glucose 130 H Lactate 1.3 Potassium Carbon Dioxide Anion Gap BUN Creatinine Est GFR ( Amer) Est GFR (Non-Af Amer) POC Glucose (mg/dL) 136 H Random Glucose Lactic Acid 6.2 H* Calcium Venous Blood Potassium 3.0 L Stool Occult Blood Urine Opiates Screen Urine Methadone Screen Ur Barbiturates Screen Ur Phencyclidine Scrn Ur Amphetamines Screen U Benzodiazepines Scrn U Oth Cocaine Metabols U Cannabinoids Screen C. difficile Ag & Toxin 01/30/18 01/30/18 01/30/18 06:30 06:30 06:30 WBC 7.3 RBC 3.69 L Hgb 10.7 L Hct 31.4 L MCV 85.2 MCH 28.9 MCHC 33.9 RDW 14.5 Plt Count 260 MPV 7.4 Neut % (Auto) 64.8 Lymph % (Auto) 17.7 L Glascock % (Auto) 15.0 H Eos % (Auto) 2.2 Baso % (Auto) 0.3 Neut # (Auto) 4.7 Lymph # (Auto) 1.3 Glascock # (Auto) 1.1 H Eos # (Auto) 0.2 Baso # (Auto) 0.0 pO2 VBG pH VBG pCO2 VBG HCO3 VBG Total CO2 VBG O2 Sat (Calc) VBG Base Excess VBG Potassium Sodium 137 Chloride 104 Glucose Lactate Potassium 3.1 L Carbon Dioxide 25 Anion Gap 12 BUN 32 H Creatinine 1.5 Est GFR ( Amer) 54 Est GFR (Non-Af Amer) 45 POC Glucose (mg/dL) Random Glucose 118 H Lactic Acid 0.9 Calcium 7.2 L Venous Blood Potassium Stool Occult Blood Urine Opiates Screen Urine Methadone Screen Ur Barbiturates Screen Ur Phencyclidine Scrn Ur Amphetamines Screen U Benzodiazepines Scrn U Oth Cocaine Metabols U Cannabinoids Screen C. difficile Ag & Toxin 01/30/18 01/30/18 08:01 11:33 WBC RBC Hgb Hct MCV MCH MCHC RDW Plt Count MPV Neut % (Auto) Lymph % (Auto) Glascock % (Auto) Eos % (Auto) Baso % (Auto) Neut # (Auto) Lymph # (Auto) [place]ock # (Auto) Eos # (Auto) Baso # (Auto) pO2 VBG pH VBG pCO2 VBG HCO3 VBG Total CO2 VBG O2 Sat (Calc) VBG Base Excess VBG Potassium Sodium Chloride Glucose Lactate Potassium Carbon Dioxide Anion Gap BUN Creatinine Est GFR ( Amer) Est GFR (Non-Af Amer) POC Glucose (mg/dL) 118 H 156 H Random Glucose Lactic Acid Calcium Venous Blood Potassium Stool Occult Blood Urine Opiates Screen Urine Methadone Screen Ur Barbiturates Screen Ur Phencyclidine Scrn Ur Amphetamines Screen U Benzodiazepines Scrn U Oth Cocaine Metabols U Cannabinoids Screen C. difficile Ag & Toxin
--- NOTE | 2018-01-30 16:33 | US ---
HISTORY: r/o cholecystitis COMPARISON: CT abdomen and pelvis from 01/29/2018 TECHNIQUE: Grayscale imaging was performed. FINDINGS: LIVER: Measures 19.9 cm. There is diffuse increased echogenicity of the liver parenchyma. There are multiple cysts in the liver, the largest calcified cyst in the left hepatic lobe measures 7.2 x 4.9 x 6.4 cm. . No intrahepatic bile duct dilatation. GALLBLADDER: There are no gallstones, wall thickening or pericholecystic fluid. The sonographic Mcgee's sign is negative. COMMON BILE DUCT: Measures 4.2 mm. No stones. No dilatation. PANCREAS: Unremarkable as visualized. No mass. No ductal dilatation. RIGHT KIDNEY: Measures 10.5cm. Normal echogenicity. No calculus, mass, or hydronephrosis. LEFT KIDNEY: Measures 10.9cm. Normal echogenicity. No calculus, mass, or hydronephrosis. There is a 1.2 cm simple cyst in the upper pole. SPLEEN: Normal in size and contour. No mass. There is nonspecific calcification in the spleen. AORTA: No aneurysmal dilatation. IVC: Unremarkable. OTHER FINDINGS: . None. IMPRESSION: Examination is limited due to patient body habitus. Multiple liver cysts and fatty liver. No cholelithiasis or biliary dilatation.
[2018-01-30] MEDS: Saccharomyces Boulardi 250 mg Cap PO SCH (18:06)
[2018-01-31] MEDS: Sodium Bicarbonate 8.4% 150 MEQ in Dextrose 5% In Water 850 ML IV SCH (01:10)
[2018-01-31] MEDS ORDERED: Tramadol 25 mg PO ONE (02:58)
[2018-01-31 06:52] LABS: BASO % 0.3 % (0.0-2.0); EOS # 0.2 K/uL (0.0-0.7); EOS % 2.5 % (0.0-4.0); LYMPH # 1.6 K/uL (1.0-4.3); LYMPH % 20.6 % (20.0-40.0); MEAN CELL VOLUME 84.4 fL (80.0-94.0); MEAN CORPUSCULAR HEMOGLOBIN 29.1 pg (27.0-31.0); MEAN CORPUSCULAR HGB CONC 34.5 g/dL (33.0-37.0); MEAN PLATELET VOLUME 7.4 fL (7.2-11.7); NEUT # 5.1 K/uL (1.8-7.0); NEUT % 64.6 % (50.0-75.0); RBC 3.77 Mil/uL (4.40-5.90); RED CELL DISTRIBUTION WIDTH 14.5 % (11.5-14.5); WHITE BLOOD COUNT 7.9 K/uL (4.8-10.8)
[2018-01-31 07:18] LABS: ALB/GLOB RATIO 0.9 (1.0-2.1); ALBUMIN 2.8 g/dL (3.5-5.0); ALT/SGPT 22 U/L (21-72); AST/SGOT 23 U/L (17-59); BLOOD UREA NITROGEN 21 mg/dL (9-20); CALCIUM 6.7 mg/dl (8.6-10.4); GFR AFRICAN-AMERICAN > 60; GFR NON-AFRICAN AMERICAN 58
[2018-01-31] MEDS ORDERED: Potassium Phosphate 15 MMOLE in Dextrose 5% In Water 250 ML IVPB ONE ×2 (07:34→13:30)
[2018-01-31] MEDS ORDERED: Magnesium Sulfate 1 gm in D5W 1 GM/100 ML BAG IVPB ONE (07:36)
[2018-01-31] MEDS: (Novolin R) Insulin Human Regular 100 units/ml vial SC SCH ×4 (08:26→21:35)
[2018-01-31] MEDS: Levothyroxine 25 MCG TAB PO SCH (08:38)
[2018-01-31] MEDS: Potassium Chloride 20 mEq/15 ml LIQ UD PO SCH ×5 (08:40→23:32)
[2018-01-31] MEDS: Pantoprazole 20 mg EC Tab PO SCH (09:16)
[2018-01-31] MEDS: Saccharomyces Boulardi 250 mg Cap PO SCH ×2 (09:16→17:12)
[2018-01-31] MEDS: Vancomycin 125 MG/5 ML SOLN (ORAL/RECTAL) PO SCH ×4 (09:17→21:35)
--- NOTE | 2018-01-31 12:04 | CP.PCM.PN ---
<Byron Peralta - Last Filed: 01/31/18 12:05> Subjective - Date & Time of Evaluation Date of Evaluation: 01/31/18 Time of Evaluation: 09:15 - Subjective Subjective: PGY5 GI Fellow Progress Note Patient seen and examined bedside this morning. The patient is in good spirits and does not appear to be in any discomfort presently. He remains confused and his answers are rather tangential. No events overnight. 12 system ROS limited given dementia. Objective - Vital Signs/Intake and Output Vital Signs (last 24 hours): Temp Pulse Resp BP Pulse Ox 98.4 F 94 H 14 111/60 96 01/31/18 08:00 01/31/18 11:42 01/31/18 11:42 01/31/18 11:42 01/31/18 11:42 Intake and Output: 01/31/18 01/31/18 06:59 18:59 Intake Total 850 722 Output Total 350 300 Balance 500 422 - Medications Medications: Current Medications Aspirin (Ecotrin) 81 mg PO DAILY [facility] Last Admin: 01/31/18 09:16 Dose: 81 mg Ergocalciferol (Drisdol 50,000 Intl Units Cap) 1 cap PO QWK [facility] Potassium Phosphate 15 mmole/ (Dextrose) 255 mls @ 42.5 mls/hr IVPB ONCE ONE Stop: 01/31/18 13:33 Last Admin: 01/31/18 08:38 Dose: 42.5 mls/hr Potassium Phosphate 15 mmole/ (Dextrose) 255 mls @ 42.5 mls/hr IVPB ONCE ONE Stop: 01/31/18 19:29 Insulin Human Regular (Novolin R) 0 unit SC [facility] PRN Reason: Protocol Last Admin: 01/31/18 11:44 Dose: Not Given Levothyroxine Sodium (Synthroid) 25 mcg PO DAILY@0630 [facility] Last Admin: 01/31/18 08:38 Dose: 25 mcg Pantoprazole Sodium (Protonix Ec Tab) 20 mg PO DAILY [facility] Last Admin: 01/31/18 09:16 Dose: 20 mg Potassium Chloride (Potassium Chloride Oral Soln) 40 meq PO Q4H [facility] Stop: 02/01/18 00:01 Last Admin: 01/31/18 11:55 Dose: 40 meq Rivaroxaban (Xarelto) 20 mg PO DAILY [facility] Last Admin: 01/31/18 09:16 Dose: 20 mg Rosuvastatin Calcium (Crestor) 10 mg PO HS [facility] Last Admin: 01/30/18 21:58 Dose: 10 mg Saccharomyces Boulardii (Florastor) 250 mg PO BID [facility] Last Admin: 01/31/18 09:16 Dose: 250 mg Tamsulosin HCl (Flomax) 0.4 mg PO DAILY [facility] Last Admin: 01/31/18 09:16 Dose: 0.4 mg Vancomycin HCl (Vancocin (Oral Or Rectal Use)) 500 mg PO QID [facility] PRN Reason: Protocol Stop: 02/13/18 10:01 Last Admin: 01/31/18 09:17 Dose: 500 mg - Labs Labs: 01/31/18 06:41 01/31/18 06:35 PT 30.6 SECONDS (9.7-12.2) H* 01/29/18 10:11 INR 2.8 01/29/18 10:11 APTT 43 SECONDS (21-34) H 01/29/18 10:11 - Constitutional Appears: Non-toxic, No Acute Distress - Eye Exam Eye Exam: EOMI, PERRL - ENT Exam ENT Exam: Mucous Membranes Moist - Respiratory Exam Respiratory Exam: Clear to Ausculation Bilateral. absent: Rales, Rhonchi, Wheezes - Cardiovascular Exam Cardiovascular Exam: RRR, +S1, +S2, Murmur - GI/Abdominal Exam GI & Abdominal Exam: Soft, Normal Bowel Sounds. absent: Distended, Firm, Guarding, Rigid, Tenderness, Hernia, Mass, Organomegaly - Extremities Exam Extremities Exam: Normal Inspection. absent: Pedal Edema - Neurological Exam Neurological Exam: Awake. absent: Oriented x3 - Psychiatric Exam Psychiatric exam: Normal Affect, Normal Mood - Skin Skin Exam: Dry, Warm Assessment and Plan - Assessment and Plan (Free Text) Assessment: Patient is an 82yo male with PMHx significant for dementia, CVA with left-sided deficits, PVD, A-fib on Xarelto, systolic CHF (EF 35-40%), AV sclerosis, CAD who presented with vomiting, diarrhea and generalized weakness for 2 days -C. diff colitis -ARI -Hypokalemia -Atrial fibrillation -CHF -CAD Plan: -Cipro/Flagyl have been discontinued - Per our recommendation, Flagyl/Cipro adequate coverage for current condition - currently only on oral Vancomycin which was added by ICU staff yesterday -7 BM in last 24Hrs, continue to closely monitor I/O -ARI improved - suspect result of volume depletion/pre-renal azotemia -Diet as tolerated <Michael Bennett - Last Filed: 01/31/18 18:48> Objective - Vital Signs/Intake and Output Vital Signs (last 24 hours): Temp Pulse Resp BP Pulse Ox 97.6 F 98 H 21 109/73 99 01/31/18 16:00 01/31/18 18:00 01/31/18 18:00 01/31/18 17:43 01/31/18 18:00 Intake and Output: 01/31/18 01/31/18 06:59 18:59 Intake Total 850 1432 Output Total 350 600 Balance 500 832 - Medications Medications: Current Medications Aspirin (Ecotrin) 81 mg PO DAILY [facility] Last Admin: 01/31/18 09:16 Dose: 81 mg Ergocalciferol (Drisdol 50,000 Intl Units Cap) 1 cap PO QWK [facility] Potassium Phosphate 15 mmole/ (Dextrose) 255 mls @ 42.5 mls/hr IVPB ONCE ONE Stop: 01/31/18 19:29 Last Admin: 01/31/18 13:28 Dose: 42.5 mls/hr Insulin Human Regular (Novolin R) 0 unit SC A[facility] PRN Reason: Protocol Last Admin: 01/31/18 16:34 Dose: Not Given Levothyroxine Sodium (Synthroid) 25 mcg PO DAILY@0630 [facility] Last Admin: 01/31/18 08:38 Dose: 25 mcg Pantoprazole Sodium (Protonix Ec Tab) 20 mg PO DAILY [facility] Last Admin: 01/31/18 09:16 Dose: 20 mg Potassium Chloride (Potassium Chloride Oral Soln) 40 meq PO Q4H [facility] Stop: 02/01/18 00:01 Last Admin: 01/31/18 15:30 Dose: 40 meq Rivaroxaban (Xarelto) 20 mg PO DAILY [facility] Last Admin: 01/31/18 09:16 Dose: 20 mg Rosuvastatin Calcium (Crestor) 10 mg PO HS [facility] Last Admin: 01/30/18 21:58 Dose: 10 mg Saccharomyces Boulardii (Florastor) 250 mg PO BID [facility] Last Admin: 01/31/18 17:12 Dose: 250 mg Tamsulosin HCl (Flomax) 0.4 mg PO DAILY [facility] Last Admin: 01/31/18 09:16 Dose: 0.4 mg Vancomycin HCl (Vancocin (Oral Or Rectal Use)) 500 mg PO QID [facility] PRN Reason: Protocol Stop: 02/13/18 10:01 Last Admin: 01/31/18 17:12 Dose: 500 mg - Labs Labs: 01/31/18 06:41 01/31/18 06:35 PT 30.6 SECONDS (9.7-12.2) H* 01/29/18 10:11 INR 2.8 01/29/18 10:11 APTT 43 SECONDS (21-34) H 01/29/18 10:11 Attending/Attestation - Attestation I have personally seen and examined this patient.: Yes I have fully participated in the care of the patient.: Yes I have reviewed all pertinent clinical information, including history, physical exam and plan: Yes Notes (Text): 01/31/18 18:47 82 year old male with C. diff colitis. Continue flagyl. ID following. Will sign off. Recommend outpatient colonoscopy depening on clinical status in 6-8 weeks. Will sign off. Diet as tolerated.
--- NOTE | 2018-01-31 14:01 | CP.PCM.CON ---
History of Present Illness - History of Present Illness History of Present Illness: 82 y/o male with pmx of CHronic systolic heart failure, h/o A-fib, h/o E. coli bacteremia presents to [facility] with c/o abdominal pain and low BP. Patient was treated with IV cipro and flagl and given 500 ml of IVF. Patient seen and examined at bedside. Patient deneis any dizziness, denies any headaches, deneis any dyspnea, (+)abdominal pain, denies any dysuria. Patient being treated and was recently dischanrged with dx of E. coli bacteremia. now being trated for c diff colitis Review of Systems - Review of Systems All systems: reviewed and no additional remarkable complaints except - Constitutional Constitutional: As Per HPI - EENT Eyes: absent: As Per HPI, Blind Spots, Blurred Vision, Change in Vision, Decreased Night Vision, Diplopia, Discharge, Dry Eye, Exophthalmos, Floaters, Irritation, Itchy Eyes, Loss of Peripheral Vision, Pain, Photophobia, Requires Corrective Lenses, Sees Flashes, Spots in Vision, Tunnel Vision, Other Visual Disturbances, Loss of Vision, Other Ears: absent: As Per HPI, Decreased Hearing, Ear Discharge, Ear Pain, Tinnitus, Abnormal Hearing, Disequilibrium, Dizziness, Other Nose/Mouth/Throat: absent: As Per HPI, Epistaxis, Nasal Congestion, Nasal Discharge, Nasal Obstruction, Nasal Trauma, Nose Pain, Post Nasal Drip, Sinus Pain, Sinus Pressure, Bleeding Gums, Change in Voice, Dental Pain, Dry Mouth, Dysphagia, Halitosis, Hoarsness, Lip Swelling, Mouth Lesions, Mouth Pain, Odynophagia, Sore Throat, Throat Swelling, Tongue Swelling, Facial Pain, Neck Pain, Neck Mass, Other - Cardiovascular Cardiovascular: absent: As Per HPI, Acrocyanosis, Chest Pain, Chest Pain at Rest , Chest Pain with Activity, Claudication, Diaphoresis, Dyspnea, Dyspnea on Exertion, Edema, Irregular Heart Rhythm, Pain Radiating to Arm/Neck/Jaw, Leg Edema, Leg Ulcers, Lightheadedness, Orthopnea, Palpitations, Paroxysmal Nocturnal Dyspnea, Pedal Edema, Radiating Pain, Rapid Heart Rate, Slow Heart Rate, Syncope, Other - Respiratory Respiratory: absent: As Per HPI, Cough, Dyspnea, Hemoptysis, Dyspnea on Exertion , Wheezing, Snoring, Stridor, Pain on Inspiration, Chest Congestion, Excessive Mucous Production, Change in Mucous Color, Pain with Coughing, Other - Gastrointestinal Gastrointestinal: As Per HPI - Genitourinary Genitourinary: absent: As Per HPI, Change in Urinary Stream, Difficulty Urinating, Dysuria, Flank Pain, Hematuria, Pyuria, Nocturia, Urinary Incontinence, Urinary Frequency, Urinary Hesitance, Urinary Urgency, Voiding Freq/Small Amts, Freq UTI, Hx Renal/Bladder Calculi, Hx /Renal Surgery, Bladder Distension, Other - Musculoskeletal Musculoskeletal: absent: As Per HPI, Abnormal Gait, Arthralgias, Atrophy, Back Pain, Deformity, Joint Swelling, Limited Range of Motion, Loss of Height, Muscle Cramps, Muscle Weakness, Myalgias, Neck Pain, Numbness, Radiating Pain into Limb, Stiffness, Tingling, Other - Integumentary Integumentary: absent: As Per HPI, Acne, Alopecia, Bleeding Lesions, Change in Hair, Change in Nails, Change in Pigmentation, Changing Lesions, Dry Skin, Erythema, Furuncle, Hirsutism, Lesions, New Lesions, Non-Healing Lesions, Photosensitivity, Pruritus, Rash, Skin Pain, Skin Ulcer, Sores, Striae, Swelling , Unusual Bruising, Wounds, Jaundice, Other - Neurological Neurological: absent: As Per HPI, Abnormal Gait, Abnormal Hearing, Abnormal Movements, Abnormal Speech, Behavioral Changes, Burning Sensations, Confusion, Convulsions, Disequilibrium, Dizziness, Numbness, Focal Weakness, Frequent Falls , Headaches, Lack of Coordination, Loss of Vision, Memory Loss, Paresthesias, Radicular Pain, Restless Legs, Sensory Deficit, Syncope, Tingling, Tremor, Vertigo, Weakness, Other Visual Disturbances, Other - Psychiatric Psychiatric: absent: As Per HPI, Abnormal Sleep Pattern, Anhedonia, Anxiety, Auditory Hallucinations, Behavioral Changes, Change in Appetite, Change in Libido, Confusion, Depression, Difficulty Concentrating, Hallucinations, Homicidal Ideation, Hopelessness, Irritability, Memory Loss, Mood Swings, Panic Attacks, Paranoia, Suicidal Ideation, Visual Hallucinations, Tactile Hallucinations, Other - Endocrine Endocrine: absent: As Per HPI, Change in Body Appearance, Change in Libido, Cold Intolorance, Deepening of Voice, Excessive Sweating, Fatigue, Flushing, Heat Intolorance, Increase in Ring/Shoe/Hat Size, Palpitations, Polydipsia, Polyphagia, Polyuria, Other - Hematologic/Lymphatic Hematologic: absent: As Per HPI, Easy Bleeding, Easy Bruising, Lymphadenopathy, Other Past Patient History - Infectious Disease Hx of Infectious Diseases: None - Past Medical History & Family History Past Medical History?: Yes Past Family History: Reviewed and not pertinent - Past Social History Smoking Status: Former Smoker Chewing Tobacco Use: No Alcohol: Occasional Drugs: Denies - CARDIAC Hx Cardia Arrhythmia: Yes (A FIB) Hx Congestive Heart Failure: Yes Hx Hypercholesterolemia: Yes Hx Hypertension: Yes - PULMONARY Hx Respiratory Disorders: No - NEUROLOGICAL Hx Alzheimer's Disease: Yes Hx Dementia: Yes - HEENT Hx HEENT Problems: No - RENAL Hx Chronic Kidney Disease: No - ENDOCRINE/METABOLIC Hx Hypothyroidism: Yes - HEMATOLOGICAL/ONCOLOGICAL Hx Blood Disorders: No - INTEGUMENTARY Hx Dermatological Problems: No - MUSCULOSKELETAL/RHEUMATOLOGICAL Hx Musculoskeletal Disorders: No Hx Falls: No - GASTROINTESTINAL Hx Gastrointestinal Disorders: No - GENITOURINARY/GYNECOLOGICAL Hx Genitourinary Disorders: Yes Hx Prostate Problems: Yes (ENLARGED PROSTATE) - PSYCHIATRIC Hx Substance Use: No - SURGICAL HISTORY Hx Carotid Endarterectomy: Yes (RIGHT) - ANESTHESIA Hx Anesthesia: Yes Hx Anesthesia Reactions: No Hx Malignant Hyperthermia: No Meds Allergies/Adverse Reactions: Allergies Allergy/AdvReac Type Severity Reaction Status Date / Time No Known Allergies Allergy Verified 01/29/18 09:47 - Medications Medications: Current Medications Aspirin (Ecotrin) 81 mg PO DAILY [facility] Last Admin: 01/31/18 09:16 Dose: 81 mg Ergocalciferol (Drisdol 50,000 Intl Units Cap) 1 cap PO QWK [facility] Potassium Phosphate 15 mmole/ (Dextrose) 255 mls @ 42.5 mls/hr IVPB ONCE ONE Stop: 01/31/18 19:29 Last Admin: 01/31/18 13:28 Dose: 42.5 mls/hr Insulin Human Regular (Novolin R) 0 unit SC ACHS [facility] PRN Reason: Protocol Last Admin: 01/31/18 11:44 Dose: Not Given Levothyroxine Sodium (Synthroid) 25 mcg PO DAILY@0630 [facility] Last Admin: 01/31/18 08:38 Dose: 25 mcg Pantoprazole Sodium (Protonix Ec Tab) 20 mg PO DAILY [facility] Last Admin: 01/31/18 09:16 Dose: 20 mg Potassium Chloride (Potassium Chloride Oral Soln) 40 meq PO Q4H [facility] Stop: 02/01/18 00:01 Last Admin: 01/31/18 11:55 Dose: 40 meq Rivaroxaban (Xarelto) 20 mg PO DAILY [facility] Last Admin: 01/31/18 09:16 Dose: 20 mg Rosuvastatin Calcium (Crestor) 10 mg PO HS [facility] Last Admin: 01/30/18 21:58 Dose: 10 mg Saccharomyces Boulardii (Florastor) 250 mg PO BID [facility] Last Admin: 01/31/18 09:16 Dose: 250 mg Tamsulosin HCl (Flomax) 0.4 mg PO DAILY [facility] Last Admin: 01/31/18 09:16 Dose: 0.4 mg Vancomycin HCl (Vancocin (Oral Or Rectal Use)) 500 mg PO QID [facility] PRN Reason: Protocol Stop: 02/13/18 10:01 Last Admin: 01/31/18 13:30 Dose: 500 mg Physical Exam - Constitutional Appears: Non-toxic, Confused, Cachectic, Chronically Ill - Head Exam Head Exam: ATRAUMATIC, NORMAL INSPECTION, NORMOCEPHALIC - Eye Exam Eye Exam: Normal appearance. absent: Periorbital tenderness, Scleral icterus Pupil Exam: NORMAL ACCOMODATION - ENT Exam ENT Exam: Mucous Membranes Moist - Neck Exam Neck exam: Negative for: Lymphadenopathy, Tenderness - Respiratory Exam Respiratory Exam: Clear to Auscultation Bilateral. absent: Chest Wall Tenderness - Cardiovascular Exam Cardiovascular Exam: REGULAR RHYTHM, +S1, +S2 - GI/Abdominal Exam GI & Abdominal Exam: Diminished Bowel Sounds, Distended, Soft, Tenderness - Rectal Exam Rectal Exam: Deferred - Exam Exam: NORMAL INSPECTION - Extremities Exam Extremities exam: Positive for: pedal edema, pedal pulses present. Negative for : tenderness - Back Exam Back exam: NORMAL INSPECTION. absent: CVA tenderness (L), CVA tenderness (R) - Neurological Exam Neurological exam: Alert, Altered, CN II-XII Intact - Psychiatric Exam Psychiatric exam: Normal Affect - Skin Skin Exam: Dry Results - Vital Signs Recent Vital Signs: Last Vital Signs Temp 97.6 F 01/31/18 12:00 Pulse 84 01/31/18 12:41 Resp 16 01/31/18 12:41 BP 112/65 01/31/18 12:41 Pulse Ox 93 L 01/31/18 12:41 - Labs Result Diagrams: 01/31/18 06:41 01/31/18 06:35 Labs: Laboratory Results - last 24 hr 01/30/18 01/30/18 01/31/18 16:07 21:28 06:35 WBC RBC Hgb Hct MCV MCH MCHC RDW Plt Count MPV Neut % (Auto) Lymph % (Auto) Edgar % (Auto) Eos % (Auto) Baso % (Auto) Neut # (Auto) Lymph # (Auto) Edgar # (Auto) Eos # (Auto) Baso # (Auto) Sodium 136 Potassium 2.5 L* Chloride 94 L Carbon Dioxide 33 H Anion Gap 11 BUN 21 H Creatinine 1.2 Est GFR ( Amer) > 60 Est GFR (Non-Af Amer) 58 POC Glucose (mg/dL) 150 H 141 H Random Glucose 124 H Calcium 6.7 L Phosphorus 1.3 L Magnesium 1.9 Total Bilirubin 0.5 AST 23 ALT 22 Alkaline Phosphatase 53 Total Protein 5.7 L Albumin 2.8 L D Globulin 2.9 Albumin/Globulin Ratio 0.9 L 01/31/18 01/31/18 01/31/18 06:41 08:19 11:42 WBC 7.9 RBC 3.77 L Hgb 11.0 L Hct 31.8 L MCV 84.4 MCH 29.1 MCHC 34.5 RDW 14.5 Plt Count 248 MPV 7.4 Neut % (Auto) 64.6 Lymph % (Auto) 20.6 Edgar % (Auto) 12.0 H Eos % (Auto) 2.5 Baso % (Auto) 0.3 Neut # (Auto) 5.1 Lymph # (Auto) 1.6 Edgar # (Auto) 1.0 H Eos # (Auto) 0.2 Baso # (Auto) 0.0 Sodium Potassium Chloride Carbon Dioxide Anion Gap BUN Creatinine Est GFR ( Amer) Est GFR (Non-Af Amer) POC Glucose (mg/dL) 139 H 116 H Random Glucose Calcium Phosphorus Magnesium Total Bilirubin AST ALT Alkaline Phosphatase Total Protein Albumin Globulin Albumin/Globulin Ratio Assessment & Plan (1) Acute renal insufficiency Status: Acute (2) Colitis Status: Acute (3) Afib Status: Acute Priority: Medium (4) Chest pain Status: Acute (5) Congestive heart failure Status: Acute Priority: Medium - Assessment and Plan (Free Text) Assessment: cont PO vanco gi eval in progress
--- NOTE | 2018-01-31 15:57 | CP.PCM.PN ---
Subjective - Date & Time of Evaluation Date of Evaluation: 01/31/18 Time of Evaluation: 11:00 - Subjective Subjective: clinically same Objective - Vital Signs/Intake and Output Vital Signs (last 24 hours): Temp Pulse Resp BP Pulse Ox 97.6 F 83 21 97/62 L 100 01/31/18 12:00 01/31/18 14:42 01/31/18 14:42 01/31/18 14:42 01/31/18 14:42 Intake and Output: 01/31/18 01/31/18 06:59 18:59 Intake Total 850 1177 Output Total 350 600 Balance 500 577 - Medications Medications: Current Medications Aspirin (Ecotrin) 81 mg PO DAILY [facility] Last Admin: 01/31/18 09:16 Dose: 81 mg Ergocalciferol (Drisdol 50,000 Intl Units Cap) 1 cap PO QWK [facility] Potassium Phosphate 15 mmole/ (Dextrose) 255 mls @ 42.5 mls/hr IVPB ONCE ONE Stop: 01/31/18 19:29 Last Admin: 01/31/18 13:28 Dose: 42.5 mls/hr Insulin Human Regular (Novolin R) 0 unit SC ACHS [facility] PRN Reason: Protocol Last Admin: 01/31/18 11:44 Dose: Not Given Levothyroxine Sodium (Synthroid) 25 mcg PO DAILY@0630 [facility] Last Admin: 01/31/18 08:38 Dose: 25 mcg Pantoprazole Sodium (Protonix Ec Tab) 20 mg PO DAILY [facility] Last Admin: 01/31/18 09:16 Dose: 20 mg Potassium Chloride (Potassium Chloride Oral Soln) 40 meq PO Q4H [facility] Stop: 02/01/18 00:01 Last Admin: 01/31/18 15:30 Dose: 40 meq Rivaroxaban (Xarelto) 20 mg PO DAILY [facility] Last Admin: 01/31/18 09:16 Dose: 20 mg Rosuvastatin Calcium (Crestor) 10 mg PO HS [facility] Last Admin: 01/30/18 21:58 Dose: 10 mg Saccharomyces Boulardii (Florastor) 250 mg PO BID [facility] Last Admin: 01/31/18 09:16 Dose: 250 mg Tamsulosin HCl (Flomax) 0.4 mg PO DAILY [facility] Last Admin: 01/31/18 09:16 Dose: 0.4 mg Vancomycin HCl (Vancocin (Oral Or Rectal Use)) 500 mg PO QID [facility] PRN Reason: Protocol Stop: 02/13/18 10:01 Last Admin: 01/31/18 13:30 Dose: 500 mg - Labs Labs: 01/31/18 06:41 01/31/18 06:35 PT 30.6 SECONDS (9.7-12.2) H* 01/29/18 10:11 INR 2.8 01/29/18 10:11 APTT 43 SECONDS (21-34) H 01/29/18 10:11 - Constitutional Appears: Well - Head Exam Head Exam: ATRAUMATIC, NORMAL INSPECTION, NORMOCEPHALIC - Eye Exam Eye Exam: EOMI, Normal appearance, PERRL Pupil Exam: NORMAL ACCOMODATION, PERRL - ENT Exam ENT Exam: Mucous Membranes Moist, Normal Exam - Neck Exam Neck Exam: Full ROM, Normal Inspection. absent: Lymphadenopathy - Respiratory Exam Respiratory Exam: Decreased Breath Sounds - Cardiovascular Exam Cardiovascular Exam: REGULAR RHYTHM, +S1, +S2 - GI/Abdominal Exam GI & Abdominal Exam: Soft, Diminished Bowel Sounds - Rectal Exam Rectal Exam: Deferred
[2018-02-01] MEDS ORDERED: Verapamil 2 ML ONE (00:47)
[2018-02-01] MEDS: Levothyroxine 25 MCG TAB PO SCH (05:51)
[2018-02-01 06:36] LABS: BASO % 0.3 % (0.0-2.0); EOS # 0.4 K/uL (0.0-0.7); EOS % 4.7 % (0.0-4.0); HEMOGLOBIN 10.5 g/dL (12.0-18.0); LYMPH # 1.4 K/uL (1.0-4.3); LYMPH % 17.7 % (20.0-40.0); MEAN CELL VOLUME 85.8 fL (80.0-94.0); MEAN CORPUSCULAR HEMOGLOBIN 29.1 pg (27.0-31.0); MEAN CORPUSCULAR HGB CONC 33.9 g/dL (33.0-37.0); MEAN PLATELET VOLUME 7.6 fL (7.2-11.7); MONO # 0.8 K/uL (0.0-0.8); MONO % 10.1 % (0.0-10.0); NEUT # 5.5 K/uL (1.8-7.0); NEUT % 67.2 % (50.0-75.0); RBC 3.62 Mil/uL (4.40-5.90); RED CELL DISTRIBUTION WIDTH 14.6 % (11.5-14.5); WHITE BLOOD COUNT 8.2 K/uL (4.8-10.8)
[2018-02-01 06:56] LABS: ALB/GLOB RATIO 0.9 (1.0-2.1); ALBUMIN 2.8 g/dL (3.5-5.0); ALT/SGPT 23 U/L (21-72); AST/SGOT 29 U/L (17-59); BLOOD UREA NITROGEN 12 mg/dL (9-20); GFR AFRICAN-AMERICAN > 60; GFR NON-AFRICAN AMERICAN > 60
[2018-02-01] MEDS: (Novolin R) Insulin Human Regular 100 units/ml vial SC SCH ×4 (08:07→22:40)
[2018-02-01] MEDS: Saccharomyces Boulardi 250 mg Cap PO SCH ×2 (11:07→19:18)
[2018-02-01] MEDS: Vancomycin 125 MG/5 ML SOLN (ORAL/RECTAL) PO SCH ×4 (11:07→22:40)
[2018-02-01] MEDS: Pantoprazole 20 mg EC Tab PO SCH (11:07)
--- NOTE | 2018-02-01 11:26 | CP.PCM.PN ---
Subjective - Date & Time of Evaluation Date of Evaluation: 02/01/18 Time of Evaluation: 06:00 - Subjective Subjective: iv and po rx in progress awake alert less confused Objective - Vital Signs/Intake and Output Vital Signs (last 24 hours): Temp Pulse Resp BP Pulse Ox 97.7 F 117 H 18 139/87 100 02/01/18 08:00 02/01/18 08:00 02/01/18 08:00 02/01/18 08:00 02/01/18 08:00 Intake and Output: 02/01/18 02/01/18 06:59 18:59 Intake Total 400 Balance 400 - Medications Medications: Current Medications Aspirin (Ecotrin) 81 mg PO DAILY [facility] Last Admin: 02/01/18 11:07 Dose: 81 mg Ergocalciferol (Drisdol 50,000 Intl Units Cap) 1 cap PO QWK [facility] Insulin Human Regular (Novolin R) 0 unit SC ACHS [facility] PRN Reason: Protocol Last Admin: 02/01/18 08:07 Dose: Not Given Levothyroxine Sodium (Synthroid) 25 mcg PO DAILY@0630 [facility] Last Admin: 02/01/18 05:51 Dose: 25 mcg Pantoprazole Sodium (Protonix Ec Tab) 20 mg PO DAILY [facility] Last Admin: 02/01/18 11:07 Dose: 20 mg Rivaroxaban (Xarelto) 20 mg PO DAILY [facility] Last Admin: 02/01/18 11:08 Dose: 20 mg Rosuvastatin Calcium (Crestor) 10 mg PO HS [facility] Last Admin: 01/31/18 21:35 Dose: 10 mg Saccharomyces Boulardii (Florastor) 250 mg PO BID [facility] Last Admin: 02/01/18 11:07 Dose: 250 mg Tamsulosin HCl (Flomax) 0.4 mg PO DAILY [facility] Last Admin: 02/01/18 11:07 Dose: 0.4 mg Vancomycin HCl (Vancocin (Oral Or Rectal Use)) 500 mg PO QID [facility] PRN Reason: Protocol Stop: 02/13/18 10:01 Last Admin: 02/01/18 11:07 Dose: 500 mg - Labs Labs: 02/01/18 06:28 02/01/18 06:23 PT 30.6 SECONDS (9.7-12.2) H* 01/29/18 10:11 INR 2.8 01/29/18 10:11 APTT 43 SECONDS (21-34) H 01/29/18 10:11 - Constitutional Appears: Confused, Chronically Ill - Head Exam Head Exam: NORMOCEPHALIC - Eye Exam Eye Exam: PERRL - ENT Exam ENT Exam: Mucous Membranes Dry - Neck Exam Neck Exam: absent: Lymphadenopathy - Respiratory Exam Respiratory Exam: Decreased Breath Sounds - Cardiovascular Exam Cardiovascular Exam: REGULAR RHYTHM - GI/Abdominal Exam GI & Abdominal Exam: Distended, Soft Assessment and Plan (1) Acute renal insufficiency Status: Acute (2) Colitis Status: Acute (3) Afib Status: Acute (4) Chest pain Status: Acute (5) Congestive heart failure Status: Acute - Assessment and Plan (Free Text) Assessment: cont rx as ordered
[2018-02-01 16:50] VITALS: RESP 20
--- NOTE | 2018-02-01 20:56 | CP.PCM.PN ---
Subjective - Date & Time of Evaluation Date of Evaluation: 02/01/18 Time of Evaluation: 09:20 - Subjective Subjective: clinically same Objective - Vital Signs/Intake and Output Vital Signs (last 24 hours): Temp Pulse Resp BP Pulse Ox 97.3 F L 92 H 20 101/50 L 96 02/01/18 15:49 02/01/18 15:49 02/01/18 15:49 02/01/18 15:49 02/01/18 15:49 Intake and Output: 02/01/18 02/02/18 18:59 06:59 Intake Total 200 Output Total 250 Balance -50 - Medications Medications: Current Medications Aspirin (Ecotrin) 81 mg PO DAILY [facility] Last Admin: 02/01/18 11:07 Dose: 81 mg Ergocalciferol (Drisdol 50,000 Intl Units Cap) 1 cap PO QWK [facility] Famotidine (Pepcid) 20 mg PO DAILY [facility] Insulin Human Regular (Novolin R) 0 unit SC ACHS [facility] PRN Reason: Protocol Last Admin: 02/01/18 12:26 Dose: Not Given Levothyroxine Sodium (Synthroid) 25 mcg PO DAILY@0630 [facility] Last Admin: 02/01/18 05:51 Dose: 25 mcg Rivaroxaban (Xarelto) 20 mg PO DAILY [facility] Last Admin: 02/01/18 11:08 Dose: 20 mg Rosuvastatin Calcium (Crestor) 10 mg PO HS [facility] Last Admin: 01/31/18 21:35 Dose: 10 mg Saccharomyces Boulardii (Florastor) 250 mg PO BID [facility] Last Admin: 02/01/18 19:18 Dose: 250 mg Tamsulosin HCl (Flomax) 0.4 mg PO DAILY [facility] Last Admin: 02/01/18 11:07 Dose: 0.4 mg Vancomycin HCl (Vancocin (Oral Or Rectal Use)) 500 mg PO QID [facility] PRN Reason: Protocol Stop: 02/13/18 10:01 Last Admin: 02/01/18 19:18 Dose: 500 mg - Labs Labs: 02/01/18 06:28 02/01/18 06:23 PT 30.6 SECONDS (9.7-12.2) H* 01/29/18 10:11 INR 2.8 01/29/18 10:11 APTT 43 SECONDS (21-34) H 01/29/18 10:11 - Constitutional Appears: Well - Head Exam Head Exam: ATRAUMATIC, NORMAL INSPECTION, NORMOCEPHALIC - Eye Exam Eye Exam: EOMI, Normal appearance, PERRL Pupil Exam: NORMAL ACCOMODATION, PERRL - ENT Exam ENT Exam: Mucous Membranes Moist, Normal Exam - Neck Exam Neck Exam: Full ROM, Normal Inspection. absent: Lymphadenopathy - Respiratory Exam Respiratory Exam: Decreased Breath Sounds - Cardiovascular Exam Cardiovascular Exam: REGULAR RHYTHM, +S1, +S2 - GI/Abdominal Exam GI & Abdominal Exam: Soft, Diminished Bowel Sounds - Rectal Exam Rectal Exam: Deferred
--- NOTE | 2018-02-02 01:16 | CP.PCM.PN ---
Subjective - Date & Time of Evaluation Date of Evaluation: 02/02/18 Time of Evaluation: 01:00 - Subjective Subjective: Patient's vitals: B/P 144/91 and HR 113. EKG atrial fibrillation at 114bpm and chronic left bundle branch block seen on previous EKG 01/29/18. Patient was given Lopressor 5mg once. Repeat Vitals: B/P 129/92 and HR 101. Objective - Vital Signs/Intake and Output Vital Signs (last 24 hours): Temp Pulse Resp BP Pulse Ox 98.2 F 89 20 115/74 95 02/02/18 00:34 02/02/18 00:34 02/02/18 00:34 02/02/18 00:34 02/02/18 00:34 Intake and Output: 02/01/18 02/02/18 18:59 06:59 Intake Total 200 600 Output Total 250 Balance -50 600 - Medications Medications: Current Medications Aspirin (Ecotrin) 81 mg PO DAILY [facility] Last Admin: 02/01/18 11:07 Dose: 81 mg Ergocalciferol (Drisdol 50,000 Intl Units Cap) 1 cap PO QWK [facility] Famotidine (Pepcid) 20 mg PO DAILY [facility] Insulin Human Regular (Novolin R) 0 unit SC ACHS [facility] PRN Reason: Protocol Last Admin: 02/01/18 22:40 Dose: Not Given Levothyroxine Sodium (Synthroid) 25 mcg PO DAILY@0630 [facility] Last Admin: 02/01/18 05:51 Dose: 25 mcg Rivaroxaban (Xarelto) 20 mg PO DAILY [facility] Last Admin: 02/01/18 11:08 Dose: 20 mg Rosuvastatin Calcium (Crestor) 10 mg PO HS [facility] Last Admin: 02/01/18 22:40 Dose: 10 mg Saccharomyces Boulardii (Florastor) 250 mg PO BID [facility] Last Admin: 02/01/18 19:18 Dose: 250 mg Tamsulosin HCl (Flomax) 0.4 mg PO DAILY [facility] Last Admin: 02/01/18 11:07 Dose: 0.4 mg Vancomycin HCl (Vancocin (Oral Or Rectal Use)) 500 mg PO QID [facility] PRN Reason: Protocol Stop: 02/13/18 10:01 Last Admin: 02/01/18 22:40 Dose: 500 mg - Labs Labs: 02/01/18 06:28 02/01/18 06:23 PT 30.6 SECONDS (9.7-12.2) H* 01/29/18 10:11 INR 2.8 01/29/18 10:11 APTT 43 SECONDS (21-34) H 01/29/18 10:11
[2018-02-02] MEDS ORDERED: Metoprolol 1 mg/ml Inj IVP ONE (01:30)
[2018-02-02] MEDS: Levothyroxine 25 MCG TAB PO SCH (06:00)
[2018-02-02] MEDS: (Novolin R) Insulin Human Regular 100 units/ml vial SC SCH ×2 (07:43→11:23)
[2018-02-02 08:12] LABS: BASO % 0.4 % (0.0-2.0); EOS # 0.3 K/uL (0.0-0.7); EOS % 3.7 % (0.0-4.0); HEMOGLOBIN 11.2 g/dL (12.0-18.0); LYMPH # 1.7 K/uL (1.0-4.3); LYMPH % 18.9 % (20.0-40.0); MEAN CORPUSCULAR HEMOGLOBIN 29.2 pg (27.0-31.0); MONO # 0.9 K/uL (0.0-0.8); MONO % 10.7 % (0.0-10.0); NEUT # 5.9 K/uL (1.8-7.0); NEUT % 66.3 % (50.0-75.0); RBC 3.82 Mil/uL (4.40-5.90); RED CELL DISTRIBUTION WIDTH 14.4 % (11.5-14.5); WHITE BLOOD COUNT 8.9 K/uL (4.8-10.8)
[2018-02-02 08:26] LABS: ALB/GLOB RATIO 0.9 (1.0-2.1); ALBUMIN 2.8 g/dL (3.5-5.0); ALT/SGPT 27 U/L (21-72); AST/SGOT 30 U/L (17-59); BLOOD UREA NITROGEN 10 mg/dL (9-20); CALCIUM 7.4 mg/dl (8.6-10.4); GFR AFRICAN-AMERICAN > 60; GFR NON-AFRICAN AMERICAN > 60
[2018-02-02] MEDS: Vancomycin 125 MG/5 ML SOLN (ORAL/RECTAL) PO SCH ×2 (10:38→13:21)
[2018-02-02] MEDS: Saccharomyces Boulardi 250 mg Cap PO SCH (10:38)
--- NOTE | 2018-02-02 10:40 | CP.PCM.PN ---
Subjective - Date & Time of Evaluation Date of Evaluation: 02/02/18 Time of Evaluation: 09:00 - Subjective Subjective: events noted IV rx in progress Objective - Vital Signs/Intake and Output Vital Signs (last 24 hours): Temp Pulse Resp BP Pulse Ox 98.7 F 88 20 134/88 100 02/02/18 08:00 02/02/18 08:00 02/02/18 08:00 02/02/18 08:00 02/02/18 08:00 Intake and Output: 02/02/18 02/02/18 06:59 18:59 Intake Total 600 Balance 600 - Medications Medications: Current Medications Aspirin (Ecotrin) 81 mg PO DAILY [facility] Last Admin: 02/02/18 10:38 Dose: 81 mg Ergocalciferol (Drisdol 50,000 Intl Units Cap) 1 cap PO QWK [facility] Famotidine (Pepcid) 20 mg PO DAILY [facility] Last Admin: 02/02/18 10:38 Dose: 20 mg Insulin Human Regular (Novolin R) 0 unit SC ACHS [facility] PRN Reason: Protocol Last Admin: 02/02/18 07:43 Dose: Not Given Levothyroxine Sodium (Synthroid) 25 mcg PO DAILY@0630 [facility] Last Admin: 02/02/18 06:00 Dose: 25 mcg Rivaroxaban (Xarelto) 20 mg PO DAILY [facility] Last Admin: 02/02/18 10:38 Dose: 20 mg Rosuvastatin Calcium (Crestor) 10 mg PO HS [facility] Last Admin: 02/01/18 22:40 Dose: 10 mg Saccharomyces Boulardii (Florastor) 250 mg PO BID [facility] Last Admin: 02/02/18 10:38 Dose: 250 mg Tamsulosin HCl (Flomax) 0.4 mg PO DAILY [facility] Last Admin: 02/02/18 10:38 Dose: 0.4 mg Vancomycin HCl (Vancocin (Oral Or Rectal Use)) 500 mg PO QID [facility] PRN Reason: Protocol Stop: 02/13/18 10:01 Last Admin: 02/02/18 10:38 Dose: 500 mg - Labs Labs: 02/02/18 08:03 02/02/18 08:03 PT 30.6 SECONDS (9.7-12.2) H* 01/29/18 10:11 INR 2.8 01/29/18 10:11 APTT 43 SECONDS (21-34) H 01/29/18 10:11 - Constitutional Appears: Non-toxic, Chronically Ill - Head Exam Head Exam: NORMOCEPHALIC - Eye Exam Eye Exam: absent: Scleral icterus - ENT Exam ENT Exam: Mucous Membranes Dry - Neck Exam Neck Exam: absent: Lymphadenopathy - Respiratory Exam Respiratory Exam: Decreased Breath Sounds - Cardiovascular Exam Cardiovascular Exam: Irregular Rhythm, +S1, +S2 - GI/Abdominal Exam GI & Abdominal Exam: Distended - Rectal Exam Rectal Exam: Deferred - Exam Exam: NORMAL INSPECTION - Extremities Exam Extremities Exam: absent: Pedal Edema - Back Exam Back Exam: absent: CVA tenderness (L), CVA tenderness (R), paraspinal tenderness - Neurological Exam Neurological Exam: Alert, Altered, Awake - Psychiatric Exam Psychiatric exam: Depressed Assessment and Plan (1) Acute renal insufficiency Status: Acute (2) Colitis Status: Acute (3) Afib Status: Acute (4) Chest pain Status: Acute (5) Congestive heart failure Status: Acute
--- NOTE | 2018-02-02 12:11 | CARD ---
APPROVED REPORT EKG Measurement Heart [id number] <Conclusion> Atrial fibrillation with premature ventricular or aberrantly conducted complexes Left axis deviation Nonspecific intraventricular conduction delay Nonspecific T wave abnormality Abnormal ECG
--- NOTE | 2018-02-02 12:41 | CP.PCM.PN ---
Subjective - Date & Time of Evaluation Date of Evaluation: 02/02/18 Time of Evaluation: 10:00 - Subjective Subjective: clinically same Objective - Vital Signs/Intake and Output Vital Signs (last 24 hours): Temp Pulse Resp BP Pulse Ox 98.7 F 88 20 134/88 100 02/02/18 08:00 02/02/18 08:00 02/02/18 08:00 02/02/18 08:00 02/02/18 08:00 Intake and Output: 02/02/18 02/02/18 06:59 18:59 Intake Total 600 Balance 600 - Medications Medications: Current Medications Aspirin (Ecotrin) 81 mg PO DAILY [facility] Last Admin: 02/02/18 10:38 Dose: 81 mg Ergocalciferol (Drisdol 50,000 Intl Units Cap) 1 cap PO QWK [facility] Famotidine (Pepcid) 20 mg PO DAILY [facility] Last Admin: 02/02/18 10:38 Dose: 20 mg Insulin Human Regular (Novolin R) 0 unit SC ACHS [facility] PRN Reason: Protocol Last Admin: 02/02/18 11:23 Dose: Not Given Levothyroxine Sodium (Synthroid) 25 mcg PO DAILY@0630 [facility] Last Admin: 02/02/18 06:00 Dose: 25 mcg Rivaroxaban (Xarelto) 20 mg PO DAILY [facility] Last Admin: 02/02/18 10:38 Dose: 20 mg Rosuvastatin Calcium (Crestor) 10 mg PO HS [facility] Last Admin: 02/01/18 22:40 Dose: 10 mg Saccharomyces Boulardii (Florastor) 250 mg PO BID [facility] Last Admin: 02/02/18 10:38 Dose: 250 mg Tamsulosin HCl (Flomax) 0.4 mg PO DAILY [facility] Last Admin: 02/02/18 10:38 Dose: 0.4 mg Vancomycin HCl (Vancocin (Oral Or Rectal Use)) 500 mg PO QID [facility] PRN Reason: Protocol Stop: 02/13/18 10:01 Last Admin: 02/02/18 10:38 Dose: 500 mg - Labs Labs: 02/02/18 08:03 02/02/18 08:03 PT 30.6 SECONDS (9.7-12.2) H* 01/29/18 10:11 INR 2.8 01/29/18 10:11 APTT 43 SECONDS (21-34) H 01/29/18 10:11 - Constitutional Appears: Well - Head Exam Head Exam: ATRAUMATIC, NORMAL INSPECTION, NORMOCEPHALIC - Eye Exam Eye Exam: EOMI, Normal appearance, PERRL Pupil Exam: NORMAL ACCOMODATION, PERRL - ENT Exam ENT Exam: Mucous Membranes Moist, Normal Exam - Neck Exam Neck Exam: Full ROM, Normal Inspection. absent: Lymphadenopathy - Respiratory Exam Respiratory Exam: Decreased Breath Sounds - Cardiovascular Exam Cardiovascular Exam: REGULAR RHYTHM, +S1, +S2 - GI/Abdominal Exam GI & Abdominal Exam: Soft, Diminished Bowel Sounds - Rectal Exam Rectal Exam: Deferred
--- NOTE | 2018-02-02 15:24 | CP.PCM.PN ---
Subjective - Date & Time of Evaluation Date of Evaluation: 02/02/18 Time of Evaluation: 15:12 - Subjective Subjective: PT CLEARED FOR D/C HOME TODAY PER DR. RUTH. SON AT BEDSIDE AND TOLD YESTERDAY THAT PT WOULD BE GOING HOME TODAY; IN AGREEMENT WITH PLAN. PER DR RUTH MAY RESUME METFORMIN AT HOME. RX GIVEN FOR PROBIOTIC AND VANCO PO. PT TO F/U WITH GI AND PMD IN THE OFFICE. COLONOSCOPY OUTPATIENT PER GI IN SEVERAL WEEKS. NO FURTHER ORDERS. - SEGUIMIENTO CON EL DR. RUTH O EDOUARD DOCTOR PRIMARIO EN LA OFICINA DENTRO DE 1 SEMANA --- LLAME A LA OFICINA PARA HACER EDOUARD SHAN. - SEGUIMIENTO CON EL DR. CASTILLO (DOCTOR DE ESTMAGO) EN LA OFICINA DENTRO DE 2-3 SEMANAS --- LLAME A LA OFICINA PARA HACER EDOUARD SHAN. AMARIS ESTO VISITA, DR. CASTILLO DISCUTIRA CON USTED CUANDO HAYA REALIZADO TOÑO COLONOSCOPIA. -CONTINUAR LOS MEDICAMENTOS EN [place] R[place] HABITUALMENTE Y SEGN [place] --- TENGA EN [place]OS REALIZADOS EN EDOUARD MEDICINA. -NUEVAS PRESCRIPCIONES INCLUYEN: 1) VANCOMYCIN 500 MG --- TOME POR LA BOCA 4 VECES AL DA POR 11 DEGROOT MS ( SER EDOUARD LTIMO DA). 2) FLORASTOR 250 MG --- TOME POR LA BOCA 2 VECES A DEGROOT POR 14 DEGROOT (02/16/18 SER EDOUARD LTIMO DA). -Para otras inquietudes o preguntas, contctese con el DR. RUTH. -FOLLOW UP WITH DR. RUTH OR YOUR PRIMARY DOCTOR IN THE OFFICE WITHIN 1 WEEK--- CALL THE OFFICE TO MAKE YOUR APPOINTMENT. -FOLLOW UP WITH DR. CASTILLO (STOMACH DOCTOR) IN THE OFFICE WITHIN 2-3 WEEKS--- CALL THE OFFICE TO MAKE YOUR APPOINTMENT. DURING THIS VISIT, DR. CASTILLO WILL DISCUSS WITH YOU WHEN TO HAVE A COLONOSCOPY DONE. -CONTINUE MEDICATIONS AT HOME USUAL AND PER THE DISCHARGE PAPERWORK---PLEASE NOTE CHANGES MADE TO YOUR MEDICINE. -NEW PRESCRIPTIONS INCLUDE : 1) VANCOMYCIN 500 MG---TAKE BY MOUTH 4 TIMES A DAY FOR 11 MORE DAYS (02/13/18 WILL BE YOUR LAST DAY). 2) FLORASTOR 250 MG---TAKE BY MOUTH 2 TIMES A DAYS FOR 14 DAYS (02/16/18 WILL BE YOUR LAST DAY). -FOR FURTHER CONCERNS OR QUESTIONS, CONTACT DR. RUTH. Objective - Vital Signs/Intake and Output Vital Signs (last 24 hours): Temp Pulse Resp BP Pulse Ox 98.7 F 88 20 134/88 100 02/02/18 08:00 02/02/18 08:00 02/02/18 08:00 02/02/18 08:00 02/02/18 08:00 Intake and Output: 02/02/18 02/02/18 06:59 18:59 Intake Total 600 Balance 600 - Medications Medications: Current Medications Aspirin (Ecotrin) 81 mg PO DAILY [facility] Last Admin: 02/02/18 10:38 Dose: 81 mg Ergocalciferol (Drisdol 50,000 Intl Units Cap) 1 cap PO QWK [facility] Famotidine (Pepcid) 20 mg PO DAILY [facility] Last Admin: 02/02/18 10:38 Dose: 20 mg Insulin Human Regular (Novolin R) 0 unit SC ACHS [facility] PRN Reason: Protocol Last Admin: 02/02/18 11:23 Dose: Not Given Levothyroxine Sodium (Synthroid) 25 mcg PO DAILY@0630 [facility] Last Admin: 02/02/18 06:00 Dose: 25 mcg Rivaroxaban (Xarelto) 20 mg PO DAILY [facility] Last Admin: 02/02/18 10:38 Dose: 20 mg Rosuvastatin Calcium (Crestor) 10 mg PO HS [facility] Last Admin: 02/01/18 22:40 Dose: 10 mg Saccharomyces Boulardii (Florastor) 250 mg PO BID [facility] Last Admin: 02/02/18 10:38 Dose: 250 mg Tamsulosin HCl (Flomax) 0.4 mg PO DAILY [facility] Last Admin: 02/02/18 10:38 Dose: 0.4 mg Vancomycin HCl (Vancocin (Oral Or Rectal Use)) 500 mg PO QID [facility] PRN Reason: Protocol Stop: 02/13/18 10:01 Last Admin: 02/02/18 13:21 Dose: 500 mg - Labs Labs: 02/02/18 08:03 02/02/18 08:03 PT 30.6 SECONDS (9.7-12.2) H* 01/29/18 10:11 INR 2.8 01/29/18 10:11 APTT 43 SECONDS (21-34) H 01/29/18 10:11
[2018-02-02 15:56] VITALS: BP 126/76; PULSE 64; TEMP 98; O2SAT 99
--- NOTE | 2018-02-03 22:35 | CARD ---
APPROVED REPORT EKG Measurement Heart [id number] <Conclusion> Atrial fibrillation with rapid ventricular response Left axis deviation Incomplete left bundle branch block T wave abnormality, consider lateral ischemia Abnormal ECG
[2018-02-05] MEDS ORDERED: Ergocalciferol 50,000 Intl Units Cap PO SCH (10:00)
== END 2018-02-02 16:25 | disposition home or self-care (01) | DRG 371 ==
LOC: C.ER 09:30 → C.9E 12:58 → C.3T 13:19 → C.9E 13:35 → C.3T 16:34 → C.9E 19:59 → C.9I 20:44 → C.5S 02-01 16:20
PROVIDERS: ADMIT Internal Medicine Nephrology; ATTEND Internal Medicine Nephrology
DX: A04.72 Enterocolitis due to Clostridium difficile, not specified as recurrent (principal); I50.23 Acute on chronic systolic (congestive) heart failure; N17.9 Acute kidney failure, unspecified; E87.2 Acidosis; I69.354 Hemiplegia and hemiparesis following cerebral infarction affecting left non-dominant side; R78.81 Bacteremia; E03.9 Hypothyroidism, unspecified; E78.00 Pure hypercholesterolemia, unspecified; E87.6 Hypokalemia; F02.80 Dementia in other diseases classified elsewhere, unspecified severity, without behavioral disturbance, psychotic disturbance, mood disturbance, and anxiety; G30.9 Alzheimer's disease, unspecified; I11.0 Hypertensive heart disease with heart failure; I48.91 Unspecified atrial fibrillation; I25.10 Atherosclerotic heart disease of native coronary artery without angina pectoris; N30.90 Cystitis, unspecified without hematuria; Z87.891 Personal history of nicotine dependence; N40.0 Benign prostatic hyperplasia without lower urinary tract symptoms; E11.51 Type 2 diabetes mellitus with diabetic peripheral angiopathy without gangrene; K76.89 Other specified diseases of liver; Z79.01 Long term (current) use of anticoagulants; N32.0 Bladder-neck obstruction; Z79.4 Long term (current) use of insulin; R55 Syncope and collapse

== ENCOUNTER 2018-02-17 20:10 | Inpatient (IN) | payer MEDICARE, OTHER ==
[2018-02-17 20:11] VITALS: PULSE 70; BMI 34.2
[2018-02-17] MEDS ORDERED: Sodium Chloride 0.9% 1,000 ML IV ONE (20:51)
--- NOTE | 2018-02-17 20:51 | C.PDOC ---
History Of Present Illness 82 year old male patient brought to the ER by family due to abdominal pain. Family reported that patient has general weakness and vomiting. Of note, patient was recently treated for C. difficile infection. Patient's family also reported that patient has decreased in PO intake and no appetite. Patient had 1 episode of vomiting yesterday and another episode today. Patient does not have fever, chills, or nausea. Time Seen by Provider: 02/17/18 20:50 Chief Complaint (Nursing): Abdominal Pain History Per: Family History/Exam Limitations: no limitations Onset/Duration Of Symptoms: Days Current Symptoms Are (Timing): Still Present Severity: Moderate Pain Scale Rating Of: 4 Location Of Pain/Discomfort: Diffuse Radiation Of Pain To:: None Quality Of Discomfort: "Pain" Associated Symptoms: Vomiting, Other (general weakness). denies: Fever, Chills , Nausea Exacerbating Factors: None Alleviating Factors: None Last Bowel Movement: Yesterday Recent travel outside of the [place]: No Additional History Per: Family Past Medical History Reviewed: Historical Data, Nursing Documentation, Vital Signs Vital Signs: Last Vital Signs Temp 97.7 F 02/17/18 20:16 Pulse 86 02/17/18 21:09 Resp 20 02/17/18 21:09 BP 92/51 L 02/17/18 21:09 Pulse Ox 100 02/17/18 21:29 - Medical History PMH: Alzheimer's Disease, Atrial Fibrillation, CAD, Cardia Arrhythmia (A FIB), CHF, Dementia, Diabetes, HTN, Hypercholesterolemia, Hypothyroidism Surgical History: Carotid Endarterectomy (RIGHT) - [facility] Procedures CORONAR ARTERIOGR-2 CATH (09/19/13) HEAD & NECK ENDARTER NEC (09/19/13) LEFT HEART CARDIAC CATH (09/19/13) LT HEART ANGIOCARDIOGRAM (09/19/13) PROCEDURE ON SINGLE VESSEL (09/19/13) Family History: States: Unknown Family Hx - Social History Hx Tobacco Use: No Hx Alcohol Use: Yes Hx Substance Use: No - Immunization History Hx Tetanus Toxoid Vaccination: No Hx Influenza Vaccination: Yes (10/2017) Hx Pneumococcal Vaccination: Yes (10/2017) Review Of Systems Constitutional: Negative for: Fever, Chills Gastrointestinal: Positive for: Vomiting, Abdominal Pain (diffuse). Negative for: Nausea Neurological: Positive for: Weakness (generalized) Physical Exam - Physical Exam Appears: Non-toxic, No Acute Distress Skin: Warm, Dry Head: Normacephalic Eye(s): bilateral: Normal Inspection Oral Mucosa: Dry Neck: Trachea Midline, Supple Chest: Symmetrical Cardiovascular: Rhythm Irregular Respiratory: No Rales, No Rhonchi, No Wheezing Gastrointestinal/Abdominal: Soft, No Tenderness, Distention Back: Normal Inspection Extremity: Normal ROM (x4) Extremity: Bilateral: Atraumatic Pulses: Left Dorsalis Pedis: Normal (2+), Right Dorsalis Pedis: Normal (2+) Neurological/Psych: Normal Speech Disoriented To: Time, Situation Gait: With Assistance ED Course And Treatment - Laboratory Results Result Diagrams: 02/17/18 21:02 02/17/18 21:02 ECG: Interpreted By Me, Viewed By Me ECG Rhythm: Atrial Fibrillation (79), Nonspecific Changes O2 Sat by Pulse Oximetry: 100 (RA) Pulse Ox Interpretation: Normal Progress Note: Impression: abdominal pain. Plans: -- electrocardiogram. -- blood work. -- IV fluids. -- Zofran 4 mg. -- Stool Cx. -- C. Diff Toxin A B. -- UA Disposition Discussed With : Aydee Clay Comment: accepted the pt on his service and took over the care at 9:55 PM Doctor Will See Patient In The: Hospital Counseled Patient/Family Regarding: Studies Performed, Diagnosis - Disposition Disposition: HOSPITALIZED Disposition Time: 20:51 Condition: FAIR Forms: [facility] (Hungarian) - POA Present On Arrival: None - Clinical Impression Clinical Impression: Abdominal pain, Vomiting, Dehydration, Renal insufficiency, Pancreatitis - Scribe Statement The provider has reviewed the documentation as recorded by the Dino Roberson Do Provider Attestation: All medical record entries made by the Beverlyibe were at my direction and personally dictated by me. I have reviewed the chart and agree that the record accurately reflects my personal performance of the history, physical exam, medical decision making, and the department course for this patient. I have also personally directed, reviewed, and agree with the discharge instructions and disposition. Decision To Admit - Pt Status Changed To: Hospital Disposition Of: Inpatient - Admit Certification Admit to Inpatient:: After my assessment, the patient will require hospitalization for at least two midnights. This is because of the severity of symptoms shown, intensity of services needed, and/or the medical risk in this patient being treated as an outpatient. - InPatient: Physician Admission Certification:: After my assessment, the patient will require hospitalization for at least two midnights. This is because of the severity of symptoms shown, intensity of services needed, and/or the medical risk in this patient being treated as an outpatient. - . Bed Request Type: Regular Admitting Physician: Aydee Clay Patient Diagnosis: Abdominal pain, Vomiting, Dehydration, Renal insufficiency, Pancreatitis
[2018-02-17 21:14] LABS: BASO # 0.1 K/uL (0.0-0.2); BASO % 0.7 % (0.0-2.0); EOS # 0.1 K/uL (0.0-0.7); EOS % 1.4 % (0.0-4.0); HEMOGLOBIN 11.4 g/dL (12.0-18.0); LYMPH # 1.9 K/uL (1.0-4.3); LYMPH % 24.4 % (20.0-40.0); MEAN CELL VOLUME 85.4 fL (80.0-94.0); MEAN CORPUSCULAR HEMOGLOBIN 28.3 pg (27.0-31.0); MEAN CORPUSCULAR HGB CONC 33.1 g/dL (33.0-37.0); MEAN PLATELET VOLUME 7.4 fL (7.2-11.7); MONO # 0.6 K/uL (0.0-0.8); MONO % 7.7 % (0.0-10.0); NEUT # 5.2 K/uL (1.8-7.0); NEUT % 65.8 % (50.0-75.0); NRBC % 0.1 % (0.0-2.0); RBC 4.01 Mil/uL (4.40-5.90); WHITE BLOOD COUNT 7.9 K/uL (4.8-10.8)
[2018-02-17 21:21] LABS: INR 1.7
[2018-02-17 21:23] LABS: PROTHROMBIN TIME 18.8 SECONDS (9.7-12.2)
[2018-02-17 21:34] LABS: ALB/GLOB RATIO 1.3 (1.0-2.1); ALBUMIN 3.9 g/dL (3.5-5.0); CALCIUM 9.1 mg/dl (8.6-10.4)
[2018-02-17 23:25] LABS: SQUAMOUS EPITHIAL < 1 /hpf (0-5); URINE BACTERIA RARE (<OCC); URINE BILIRUBIN NEGATIVE (NEGATIVE); URINE BLOOD NEGATIVE (NEGATIVE); URINE CLARITY Clear (Clear); URINE COLOR Yellow (YELLOW); URINE GLUCOSE (UA) NORMAL (Normal); URINE LEUKOCYTE ESTERASE NEG Leu/uL (Negative); URINE PROTEIN NEGATIVE (NEGATIVE); URINE UROBILINOGEN NORMAL mg/dL (0.2-1.0)
--- NOTE | 2018-02-17 23:41 | CP.PCM.HP ---
Present on Admission - Present on Admission Any Indicators Present on Admission: No Past Patient History - Infectious Disease Hx of Infectious Diseases: C.diff - Past Medical History & Family History Past Medical History?: Yes - Past Social History Smoking Status: Former Smoker - CARDIAC Hx Atrial Fibrillation: Yes Hx Cardia Arrhythmia: Yes (A FIB) Hx Congestive Heart Failure: Yes Hx Hypercholesterolemia: Yes Hx Hypertension: Yes - PULMONARY Hx Respiratory Disorders: No - NEUROLOGICAL Hx Alzheimer's Disease: Yes Hx Dementia: Yes - HEENT Hx HEENT Problems: No - RENAL Hx Chronic Kidney Disease: No - ENDOCRINE/METABOLIC Hx Hypothyroidism: Yes - HEMATOLOGICAL/ONCOLOGICAL Hx Blood Disorders: No - INTEGUMENTARY Hx Dermatological Problems: No - MUSCULOSKELETAL/RHEUMATOLOGICAL Hx Musculoskeletal Disorders: No Hx Falls: No - GASTROINTESTINAL Hx Gastrointestinal Disorders: No - GENITOURINARY/GYNECOLOGICAL Hx Genitourinary Disorders: Yes Hx Prostate Problems: Yes (ENLARGED PROSTATE) - PSYCHIATRIC Hx Substance Use: No - SURGICAL HISTORY Hx Carotid Endarterectomy: Yes (RIGHT) - ANESTHESIA Hx Anesthesia: Yes Hx Anesthesia Reactions: No Hx Malignant Hyperthermia: No Meds Allergies/Adverse Reactions: Allergies Allergy/AdvReac Type Severity Reaction Status Date / Time No Known Allergies Allergy Verified 01/29/18 09:47 Physical Exam - Constitutional Appears: Non-toxic - Head Exam Head Exam: NORMAL INSPECTION - Eye Exam Eye Exam: Normal appearance - ENT Exam ENT Exam: Mucous Membranes Moist - Neck Exam Neck exam: Positive for: Normal Inspection - Respiratory Exam Respiratory Exam: Decreased Breath Sounds - Cardiovascular Exam Cardiovascular Exam: REGULAR RHYTHM - GI/Abdominal Exam GI & Abdominal Exam: Diminished Bowel Sounds - Rectal Exam Rectal Exam: Deferred Results - Vital Signs Recent Vital Signs: Last Vital Signs Temp 97.7 F 02/17/18 20:16 Pulse 83 02/17/18 22:04 Resp 20 02/17/18 22:04 BP 119/67 02/17/18 22:04 Pulse Ox 97 02/17/18 22:04 - Labs Result Diagrams: 02/17/18 21:02 02/17/18 21:02 Labs: Laboratory Results - last 24 hr 02/17/18 02/17/18 02/17/18 21:02 21:02 21:02 WBC 7.9 RBC 4.01 L Hgb 11.4 L Hct 34.3 L MCV 85.4 MCH 28.3 MCHC 33.1 RDW 16.0 H Plt Count 324 MPV 7.4 Neut % (Auto) 65.8 Lymph % (Auto) 24.4 [place] % (Auto) 7.7 Eos % (Auto) 1.4 Baso % (Auto) 0.7 Neut # (Auto) 5.2 Lymph # (Auto) 1.9 [place] # (Auto) 0.6 Eos # (Auto) 0.1 Baso # (Auto) 0.1 PT 18.8 H INR 1.7 APTT 41 H Sodium 134 Potassium 4.4 Chloride 99 Carbon Dioxide 19 L Anion Gap 20 BUN 36 H Creatinine 4.5 H Est GFR ( Amer) 15 Est GFR (Non-Af Amer) 13 Random Glucose 87 Calcium 9.1 Total Bilirubin 1.0 AST 31 ALT 25 Alkaline Phosphatase 56 Total Protein 6.9 Albumin 3.9 Globulin 3.0 Albumin/Globulin Ratio 1.3 Lipase 355 H Urine Color Urine Clarity Urine pH Ur Specific [place] Urine Protein Urine Glucose (UA) Urine Ketones Urine Blood Urine Nitrate Urine Bilirubin Urine Urobilinogen Ur Leukocyte Esterase Urine WBC (Auto) Urine RBC (Auto) Ur Squamous Epith Cells Urine Bacteria 02/17/18 23:07 WBC RBC Hgb Hct MCV MCH MCHC RDW Plt Count MPV Neut % (Auto) Lymph % (Auto) [place] % (Auto) Eos % (Auto) Baso % (Auto) Neut # (Auto) Lymph # (Auto) [place] # (Auto) Eos # (Auto) Baso # (Auto) PT INR APTT Sodium Potassium Chloride Carbon Dioxide Anion Gap BUN Creatinine Est GFR ( Amer) Est GFR (Non-Af Amer) Random Glucose Calcium Total Bilirubin AST ALT Alkaline Phosphatase Total Protein Albumin Globulin Albumin/Globulin Ratio Lipase Urine Color Yellow Urine Clarity Clear Urine pH 5.0 Ur Specific [place] 1.011 Urine Protein Negative Urine Glucose (UA) Normal Urine Ketones Negative Urine Blood Negative Urine Nitrate Negative Urine Bilirubin Negative Urine Urobilinogen Normal Ur Leukocyte Esterase Neg Urine WBC (Auto) 3 Urine RBC (Auto) 1 Ur Squamous Epith Cells < 1 Urine Bacteria Rare
[2018-02-18] MEDS ORDERED: Levothyroxine 25 MCG TAB PO SCH (10:00)
[2018-02-18] MEDS: Ergocalciferol 50,000 Intl Units Cap PO SCH (10:25)
[2018-02-18] MEDS: Sodium Chloride 0.9% 1,000 ML IV SCH (13:02)
--- NOTE | 2018-02-18 14:09 | CP.PCM.PN ---
Subjective - Date & Time of Evaluation Date of Evaluation: 02/18/18 Time of Evaluation: 10:15 - Subjective Subjective: clinically same Objective - Vital Signs/Intake and Output Vital Signs (last 24 hours): Temp Pulse Resp BP Pulse Ox 97.2 F L 85 18 143/81 100 02/18/18 08:13 02/18/18 08:13 02/18/18 08:13 02/18/18 10:25 02/18/18 08:13 - Medications Medications: Current Medications Aspirin (Ecotrin) 81 mg PO DAILY [facility] Last Admin: 02/18/18 10:26 Dose: 81 mg Ciprofloxacin (Cipro) 500 mg PO BID [facility] PRN Reason: Protocol Ergocalciferol (Drisdol 50,000 Intl Units Cap) 1 cap PO QWK [facility] Last Admin: 02/18/18 10:25 Dose: 1 cap Sodium Chloride (Sodium Chloride 0.9%) 1,000 mls @ 60 mls/hr IV .[id number] [facility] Last Admin: 02/18/18 13:02 Dose: 60 mls/hr Levothyroxine Sodium (Synthroid) 25 mcg PO DAILY@0630 [facility] Lisinopril (Zestril) 40 mg PO DAILY [facility] Last Admin: 02/18/18 10:26 Dose: 40 mg Metformin HCl (Glucophage) 500 mg PO BID [facility] Metoprolol Tartrate (Lopressor) 25 mg PO BID [facility] Last Admin: 02/18/18 10:25 Dose: 25 mg Metronidazole (Flagyl) 250 mg PO TID [facility] PRN Reason: Protocol Last Admin: 02/18/18 13:13 Dose: 250 mg Rivaroxaban (Xarelto) 10 mg PO DAILY [facility] Rosuvastatin Calcium (Crestor) 5 mg PO HS [facility] Tamsulosin HCl (Flomax) 0.4 mg PO DAILY [facility] Last Admin: 02/18/18 10:25 Dose: 0.4 mg - Labs Labs: 02/17/18 21:02 02/18/18 11:21 PT 18.8 SECONDS (9.7-12.2) H 02/17/18 21:02 INR 1.7 02/17/18 21:02 APTT 41 SECONDS (21-34) H 02/17/18 21:02 - Constitutional Appears: Well - Head Exam Head Exam: ATRAUMATIC, NORMAL INSPECTION, NORMOCEPHALIC - Eye Exam Eye Exam: EOMI, Normal appearance, PERRL Pupil Exam: NORMAL ACCOMODATION, PERRL - ENT Exam ENT Exam: Mucous Membranes Moist, Normal Exam - Neck Exam Neck Exam: Full ROM, Normal Inspection. absent: Lymphadenopathy - Respiratory Exam Respiratory Exam: Decreased Breath Sounds - Cardiovascular Exam Cardiovascular Exam: REGULAR RHYTHM, +S1, +S2 - GI/Abdominal Exam GI & Abdominal Exam: Soft, Diminished Bowel Sounds - Rectal Exam Rectal Exam: Deferred
--- NOTE | 2018-02-18 15:28 | US ---
Date of service: 02/18/2018 PROCEDURE: Ultrasound of the Kidneys HISTORY: ARF COMPARISON: Abdominal ultrasound dated 12/29/2017. TECHNIQUE: Sonogram of the kidneys. FINDINGS: RIGHT KIDNEY: Measures: 10.4 x 5.5 x 5.9 cm. Normal in size, contour and echogenicity. No stone, solid mass lesion or hydronephrosis visualized. LEFT KIDNEY: Measures: 10.5 x 5.9 x 5.1 cm. Upper pole cyst measuring 1.5 x 1.1 x 1.2 cm. Normal in size, contour and echogenicity. No stone, solid mass lesion or hydronephrosis visualized. OTHER FINDINGS: None. IMPRESSION: Left upper pole renal cyst. Otherwise, unremarkable renal ultrasound.
[2018-02-19] MEDS: Levothyroxine 25 MCG TAB PO SCH (05:40)
[2018-02-19] MEDS: Sodium Chloride 0.9% 1,000 ML IV SCH ×2 (05:42→21:11)
[2018-02-19 07:11] LABS: BLOOD UREA NITROGEN 29 mg/dL (9-20); CALCIUM 8.7 mg/dl (8.6-10.4); GFR AFRICAN-AMERICAN 23; GFR NON-AFRICAN AMERICAN 19
[2018-02-19 08:15] LABS: HEPATITIS B SURFACE AG Negative (NEGATIVE)
--- NOTE | 2018-02-19 12:10 | CARD ---
APPROVED REPORT Date of service: 02/17/2018 EKG Measurement Heart [id number] <Conclusion> Atrial fibrillation Left axis deviation Nonspecific intraventricular conduction delay Nonspecific T wave abnormality Abnormal ECG
--- NOTE | 2018-02-19 20:38 | CP.PCM.PN ---
Subjective - Date & Time of Evaluation Date of Evaluation: 02/19/18 Time of Evaluation: 11:10 - Subjective Subjective: clinically same Objective - Vital Signs/Intake and Output Vital Signs (last 24 hours): Temp Pulse Resp BP Pulse Ox 97.4 F L 64 20 136/95 H 100 02/19/18 16:07 02/19/18 16:07 02/19/18 16:07 02/19/18 17:29 02/19/18 16:07 Intake and Output: 02/19/18 02/20/18 18:59 06:59 Intake Total 1480 Output Total 160 Balance 1320 - Medications Medications: Current Medications Aspirin (Ecotrin) 81 mg PO DAILY [facility] Last Admin: 02/19/18 10:08 Dose: 81 mg Ciprofloxacin (Cipro) 500 mg PO BID [facility] PRN Reason: Protocol Ergocalciferol (Drisdol 50,000 Intl Units Cap) 1 cap PO QWK [facility] Last Admin: 02/18/18 10:25 Dose: 1 cap Sodium Chloride (Sodium Chloride 0.9%) 1,000 mls @ 60 mls/hr IV .[id number] [facility] Last Admin: 02/19/18 05:42 Dose: 60 mls/hr Levothyroxine Sodium (Synthroid) 25 mcg PO DAILY@0630 [facility] Last Admin: 02/19/18 05:40 Dose: 25 mcg Lisinopril (Zestril) 40 mg PO DAILY [facility] Last Admin: 02/18/18 10:26 Dose: 40 mg Metformin HCl (Glucophage) 500 mg PO BID [facility] Metoprolol Tartrate (Lopressor) 25 mg PO BID [facility] Last Admin: 02/19/18 17:29 Dose: 25 mg Metronidazole (Flagyl) 250 mg PO TID [facility] PRN Reason: Protocol Last Admin: 02/19/18 17:29 Dose: 250 mg Rivaroxaban (Xarelto) 10 mg PO DAILY [facility] Last Admin: 02/19/18 10:12 Dose: 10 mg Rosuvastatin Calcium (Crestor) 5 mg PO HS [facility] Last Admin: 02/18/18 21:41 Dose: 5 mg Tamsulosin HCl (Flomax) 0.4 mg PO DAILY [facility] Last Admin: 02/19/18 10:07 Dose: 0.4 mg - Labs Labs: 02/17/18 21:02 02/19/18 06:38 PT 18.8 SECONDS (9.7-12.2) H 02/17/18 21:02 INR 1.7 02/17/18 21:02 APTT 41 SECONDS (21-34) H 02/17/18 21:02
[2018-02-20] MEDS: Levothyroxine 25 MCG TAB PO SCH (07:57)
[2018-02-20 08:49] LABS: CALCIUM 8.4 mg/dl (8.6-10.4)
[2018-02-20] MEDS: Sodium Chloride 0.9% 1,000 ML IV SCH ×2 (14:36→15:28)
--- NOTE | 2018-02-20 14:59 | CP.PCM.PN ---
Subjective - Date & Time of Evaluation Date of Evaluation: 02/20/18 Time of Evaluation: 09:45 - Subjective Subjective: clinically same Objective - Vital Signs/Intake and Output Vital Signs (last 24 hours): Temp Pulse Resp BP Pulse Ox 98.1 F 92 H 20 168/87 H 95 02/20/18 08:00 02/20/18 08:00 02/20/18 08:00 02/20/18 09:23 02/20/18 08:00 Intake and Output: 02/20/18 02/20/18 06:59 18:59 Intake Total 900 980 Output Total 500 Balance 400 980 - Medications Medications: Current Medications Aspirin (Ecotrin) 81 mg PO DAILY [facility] Last Admin: 02/20/18 09:23 Dose: 81 mg Ciprofloxacin (Cipro) 500 mg PO BID [facility] PRN Reason: Protocol Ergocalciferol (Drisdol 50,000 Intl Units Cap) 1 cap PO QWK [facility] Last Admin: 02/18/18 10:25 Dose: 1 cap Sodium Chloride (Sodium Chloride 0.9%) 1,000 mls @ 60 mls/hr IV .[id number] [facility] Last Admin: 02/20/18 14:36 Dose: Not Given Levothyroxine Sodium (Synthroid) 25 mcg PO DAILY@0630 [facility] Last Admin: 02/20/18 07:57 Dose: 25 mcg Lisinopril (Zestril) 40 mg PO DAILY [facility] Last Admin: 02/18/18 10:26 Dose: 40 mg Metformin HCl (Glucophage) 500 mg PO BID [facility] Metoprolol Tartrate (Lopressor) 25 mg PO BID [facility] Last Admin: 02/20/18 09:23 Dose: 25 mg Metronidazole (Flagyl) 250 mg PO TID [facility] PRN Reason: Protocol Last Admin: 02/20/18 13:06 Dose: 250 mg Rivaroxaban (Xarelto) 10 mg PO DAILY [facility] Last Admin: 02/20/18 09:22 Dose: 10 mg Rosuvastatin Calcium (Crestor) 5 mg PO HS [facility] Last Admin: 02/19/18 21:11 Dose: 5 mg Tamsulosin HCl (Flomax) 0.4 mg PO DAILY [facility] Last Admin: 02/20/18 09:22 Dose: 0.4 mg - Labs Labs: 02/17/18 21:02 07/14/18 08:21 PT 18.8 SECONDS (9.7-12.2) H 02/17/18 21:02 INR 1.7 02/17/18 21:02 APTT 41 SECONDS (21-34) H 02/17/18 21:02 - Constitutional Appears: Well - Head Exam Head Exam: ATRAUMATIC, NORMAL INSPECTION, NORMOCEPHALIC - Eye Exam Eye Exam: EOMI, Normal appearance, PERRL Pupil Exam: NORMAL ACCOMODATION, PERRL - ENT Exam ENT Exam: Mucous Membranes Moist, Normal Exam - Neck Exam Neck Exam: Full ROM, Normal Inspection. absent: Lymphadenopathy - Respiratory Exam Respiratory Exam: Decreased Breath Sounds - Cardiovascular Exam Cardiovascular Exam: REGULAR RHYTHM, +S1, +S2 - GI/Abdominal Exam GI & Abdominal Exam: Soft, Diminished Bowel Sounds - Rectal Exam Rectal Exam: Deferred
[2018-02-20 21:19] LABS: URINE 24 HOUR UREA NITROGEN 4.98 g/24hr (12-20); URINE CREATININE 78.9 mg/dL
[2018-02-21] MEDS: Levothyroxine 25 MCG TAB PO SCH (06:14)
[2018-02-21 08:24] LABS: BASO % 0.7 % (0.0-2.0); EOS # 0.3 K/uL (0.0-0.7); EOS % 4.1 % (0.0-4.0); HEMOGLOBIN 11.3 g/dL (12.0-18.0); LYMPH # 1.8 K/uL (1.0-4.3); LYMPH % 28.2 % (20.0-40.0); MEAN CELL VOLUME 86.6 fL (80.0-94.0); MEAN CORPUSCULAR HEMOGLOBIN 29.3 pg (27.0-31.0); MEAN CORPUSCULAR HGB CONC 33.8 g/dL (33.0-37.0); MEAN PLATELET VOLUME 7.4 fL (7.2-11.7); MONO # 0.6 K/uL (0.0-0.8); MONO % 9.2 % (0.0-10.0); NEUT # 3.7 K/uL (1.8-7.0); NEUT % 57.8 % (50.0-75.0); RBC 3.86 Mil/uL (4.40-5.90); RED CELL DISTRIBUTION WIDTH 16.4 % (11.5-14.5); WHITE BLOOD COUNT 6.4 K/uL (4.8-10.8)
[2018-02-21] MEDS ORDERED: Vancomycin 125 MG/5 ML SOLN (ORAL/RECTAL) PO SCH (09:00)
[2018-02-21] MEDS: Vancomycin 125 MG/5 ML SOLN (ORAL/RECTAL) PO SCH ×3 (10:21→21:17)
--- NOTE | 2018-02-21 19:00 | CP.PCM.PN ---
Subjective - Date & Time of Evaluation Date of Evaluation: 02/21/18 Time of Evaluation: 18:58 - Subjective Subjective: CHART REVIEWED. PT SEEN AND EXAMINED., COVERING DR Arabella RUTH PT ALERT, NO DISTRESS. ROS ; OTHERWISE NEG. Objective - Vital Signs/Intake and Output Vital Signs (last 24 hours): Temp Pulse Resp BP Pulse Ox 97.9 F 73 20 118/75 100 02/21/18 15:07 02/21/18 15:07 02/21/18 15:07 02/21/18 16:59 02/21/18 15:07 Intake and Output: 02/21/18 02/21/18 06:59 18:59 Intake Total 960 Output Total 500 Balance 460 - Medications Medications: Current Medications Aspirin (Ecotrin) 81 mg PO DAILY [facility] Last Admin: 02/21/18 09:51 Dose: 81 mg Ciprofloxacin (Cipro) 500 mg PO BID [facility] PRN Reason: Protocol Ergocalciferol (Drisdol 50,000 Intl Units Cap) 1 cap PO QWK [facility] Last Admin: 02/18/18 10:25 Dose: 1 cap Levothyroxine Sodium (Synthroid) 25 mcg PO DAILY@0630 [facility] Last Admin: 02/21/18 06:14 Dose: 25 mcg Lisinopril (Zestril) 40 mg PO DAILY [facility] Last Admin: 02/18/18 10:26 Dose: 40 mg Metformin HCl (Glucophage) 500 mg PO BID [facility] Metoprolol Tartrate (Lopressor) 25 mg PO BID [facility] Last Admin: 02/21/18 16:59 Dose: 25 mg Metronidazole (Flagyl) 250 mg PO TID [facility] PRN Reason: Protocol Last Admin: 02/21/18 16:59 Dose: 250 mg Rivaroxaban (Xarelto) 10 mg PO DAILY [facility] Last Admin: 02/21/18 09:51 Dose: 10 mg Rosuvastatin Calcium (Crestor) 5 mg PO HS [facility] Last Admin: 02/20/18 21:42 Dose: 5 mg Tamsulosin HCl (Flomax) 0.4 mg PO DAILY [facility] Last Admin: 02/21/18 09:51 Dose: 0.4 mg Vancomycin HCl (Vancocin (Oral Or Rectal Use)) 250 mg PO Q6H [facility] PRN Reason: Protocol Last Admin: 02/21/18 16:49 Dose: 250 mg - Labs Labs: 02/21/18 08:11 02/21/18 08:11 PT 18.8 SECONDS (9.7-12.2) H 02/17/18 21:02 INR 1.7 02/17/18 21:02 APTT 41 SECONDS (21-34) H 02/17/18 21:02 - Constitutional Appears: No Acute Distress, Chronically Ill - Head Exam Head Exam: ATRAUMATIC, NORMOCEPHALIC - Eye Exam Eye Exam: EOMI, Normal appearance - ENT Exam ENT Exam: Mucous Membranes Moist - Neck Exam Neck Exam: Normal Inspection - Respiratory Exam Respiratory Exam: absent: Wheezes, Respiratory Distress - Cardiovascular Exam Cardiovascular Exam: RRR, +S1, +S2 - GI/Abdominal Exam GI & Abdominal Exam: Soft. absent: Tenderness - Rectal Exam Rectal Exam: Deferred - Extremities Exam Extremities Exam: absent: Calf Tenderness, Pedal Edema - Back Exam Back Exam: absent: CVA tenderness (L), CVA tenderness (R) - Neurological Exam Neurological Exam: Alert, Awake, CN II-XII Intact - Psychiatric Exam Psychiatric exam: Normal Mood - Skin Skin Exam: absent: Rash Assessment and Plan (1) Diabetes Status: Acute (2) Hypertension Status: Acute (3) Acute kidney injury Status: Acute (4) C. difficile colitis Status: Acute - Assessment and Plan (Free Text) Assessment: RESP STATUS COMFORTABLE AT REST., AFEBRILE ON AB. RECURRENT C DIFF. RADIOLOGY REVIEWED. PROG GUARDED. DISCUSSED WITH STAFF.
[2018-02-22] MEDS: Vancomycin 125 MG/5 ML SOLN (ORAL/RECTAL) PO SCH ×4 (03:18→21:16)
[2018-02-22] MEDS: Levothyroxine 25 MCG TAB PO SCH (06:42)
--- NOTE | 2018-02-22 14:29 | CP.PCM.PN ---
Subjective - Date & Time of Evaluation Date of Evaluation: 02/22/18 Time of Evaluation: 14:27 - Subjective Subjective: COVERING DR Arabella RUTH PT ALERT, LESS DIARRHEA. NO SOB. ROS; OTHERWISE NEG. Objective - Vital Signs/Intake and Output Vital Signs (last 24 hours): Temp Pulse Resp BP Pulse Ox 97.9 F 73 20 132/89 98 02/22/18 08:00 02/22/18 08:00 02/22/18 08:00 02/22/18 09:53 02/22/18 08:00 Intake and Output: 02/22/18 02/22/18 06:59 18:59 Intake Total 780 Output Total 700 Balance 80 - Medications Medications: Current Medications Aspirin (Ecotrin) 81 mg PO DAILY [facility] Last Admin: 02/22/18 12:27 Dose: 81 mg Ergocalciferol (Drisdol 50,000 Intl Units Cap) 1 cap PO QWK [facility] Last Admin: 02/18/18 10:25 Dose: 1 cap Levothyroxine Sodium (Synthroid) 25 mcg PO DAILY@0630 [facility] Last Admin: 02/22/18 06:42 Dose: 25 mcg Lisinopril (Zestril) 40 mg PO DAILY [facility] Last Admin: 02/18/18 10:26 Dose: 40 mg Metformin HCl (Glucophage) 500 mg PO BID [facility] Metoprolol Tartrate (Lopressor) 25 mg PO BID [facility] Last Admin: 02/22/18 09:53 Dose: 25 mg Metronidazole (Flagyl) 250 mg PO TID [facility] PRN Reason: Protocol Last Admin: 02/22/18 09:53 Dose: 250 mg Rivaroxaban (Xarelto) 10 mg PO DAILY [facility] Last Admin: 02/22/18 09:56 Dose: 10 mg Rosuvastatin Calcium (Crestor) 5 mg PO HS [facility] Last Admin: 02/21/18 21:17 Dose: 5 mg Tamsulosin HCl (Flomax) 0.4 mg PO DAILY [facility] Last Admin: 02/22/18 09:53 Dose: 0.4 mg Vancomycin HCl (Vancocin (Oral Or Rectal Use)) 250 mg PO Q6H [facility] PRN Reason: Protocol Last Admin: 02/22/18 09:53 Dose: 250 mg - Labs Labs: 02/21/18 08:11 02/22/18 08:33 PT 18.8 SECONDS (9.7-12.2) H 02/17/18 21:02 INR 1.7 02/17/18 21:02 APTT 41 SECONDS (21-34) H 02/17/18 21:02 - Constitutional Appears: No Acute Distress, Chronically Ill - Head Exam Head Exam: ATRAUMATIC, NORMOCEPHALIC - Eye Exam Eye Exam: EOMI, Normal appearance - ENT Exam ENT Exam: Mucous Membranes Moist - Neck Exam Neck Exam: Normal Inspection - Respiratory Exam Respiratory Exam: absent: Wheezes, Respiratory Distress - Cardiovascular Exam Cardiovascular Exam: RRR, +S1, +S2 - GI/Abdominal Exam GI & Abdominal Exam: Soft. absent: Tenderness - Rectal Exam Rectal Exam: Deferred - Extremities Exam Extremities Exam: absent: Calf Tenderness, Pedal Edema - Back Exam Back Exam: absent: CVA tenderness (L), CVA tenderness (R) - Neurological Exam Neurological Exam: Alert, Awake, CN II-XII Intact, Oriented x3 - Psychiatric Exam Psychiatric exam: Normal Mood - Skin Skin Exam: absent: Rash Assessment and Plan (1) Diabetes Status: Acute (2) Hypertension Status: Acute (3) Acute kidney injury Status: Acute (4) C. difficile colitis Status: Acute - Assessment and Plan (Free Text) Assessment: RESP STATUS COMFORTABLE. CONT PULM TOILET., ADEQ OXYGENATION., ARI BETTER. RADIOLOGY REVIEWED. CONT AB PER ID., INCREASE OOB. DISCUSSED WITH STAFF AT LENGTH AND FAMILY AT BEDSIDE., AND ID.
--- NOTE | 2018-02-22 19:19 | CP.PCM.CON ---
History of Present Illness - History of Present Illness History of Present Illness: dictated Past Patient History - Infectious Disease Hx of Infectious Diseases: C.diff - Past Medical History & Family History Past Medical History?: Yes - Past Social History Smoking Status: Former Smoker - CARDIAC Hx Cardiac Disorders: Yes Hx Congestive Heart Failure: Yes Hx Hypercholesterolemia: Yes Hx Hypertension: Yes - PULMONARY Hx Respiratory Disorders: No - NEUROLOGICAL Hx Neurological Disorder: Yes Hx Alzheimer's Disease: Yes Hx Dementia: Yes - HEENT Hx HEENT Problems: No - RENAL Hx Chronic Kidney Disease: No - ENDOCRINE/METABOLIC Hx Diabetes Mellitus Type 2: Yes Hx Hypothyroidism: Yes - HEMATOLOGICAL/ONCOLOGICAL Hx Blood Disorders: No - INTEGUMENTARY Hx Dermatological Problems: No - MUSCULOSKELETAL/RHEUMATOLOGICAL Hx Musculoskeletal Disorders: Yes Hx Falls: Yes (Denies) - GASTROINTESTINAL Hx Gastrointestinal Disorders: No - GENITOURINARY/GYNECOLOGICAL Hx Genitourinary Disorders: Yes Hx Prostate Problems: Yes (ENLARGED PROSTATE) - PSYCHIATRIC Hx Psychophysiologic Disorder: No Hx Substance Use: No - SURGICAL HISTORY Hx Surgeries: Yes Hx Carotid Endarterectomy: Yes (RIGHT) - ANESTHESIA Hx Anesthesia: Yes Hx Anesthesia Reactions: No Hx Malignant Hyperthermia: No Meds Allergies/Adverse Reactions: Allergies Allergy/AdvReac Type Severity Reaction Status Date / Time No Known Allergies Allergy Verified 01/29/18 09:47 - Medications Medications: Current Medications Aspirin (Ecotrin) 81 mg PO DAILY [facility] Last Admin: 02/22/18 12:27 Dose: 81 mg Ergocalciferol (Drisdol 50,000 Intl Units Cap) 1 cap PO QWK [facility] Last Admin: 02/18/18 10:25 Dose: 1 cap Levothyroxine Sodium (Synthroid) 25 mcg PO DAILY@0630 [facility] Last Admin: 02/22/18 06:42 Dose: 25 mcg Lisinopril (Zestril) 40 mg PO DAILY [facility] Last Admin: 02/18/18 10:26 Dose: 40 mg Metformin HCl (Glucophage) 500 mg PO BID [facility] Metoprolol Tartrate (Lopressor) 25 mg PO BID [facility] Last Admin: 02/22/18 17:30 Dose: 25 mg Metronidazole (Flagyl) 250 mg PO TID [facility] PRN Reason: Protocol Last Admin: 02/22/18 17:30 Dose: 250 mg Rivaroxaban (Xarelto) 10 mg PO DAILY [facility] Last Admin: 07/16/18 09:56 Dose: 10 mg Rosuvastatin Calcium (Crestor) 5 mg PO HS [facility] Last Admin: 02/21/18 21:17 Dose: 5 mg Tamsulosin HCl (Flomax) 0.4 mg PO DAILY [facility] Last Admin: 02/22/18 09:53 Dose: 0.4 mg Vancomycin HCl (Vancocin (Oral Or Rectal Use)) 250 mg PO Q6H [facility] PRN Reason: Protocol Last Admin: 02/22/18 17:30 Dose: 250 mg Results - Vital Signs Recent Vital Signs: Last Vital Signs Temp 97.8 F 02/22/18 15:58 Pulse 65 02/22/18 15:58 Resp 20 02/22/18 15:58 BP 118/67 02/22/18 17:30 Pulse Ox 98 02/22/18 15:58 - Labs Result Diagrams: 02/21/18 08:11 02/22/18 08:33 Labs: Laboratory Results - last 24 hr 02/21/18 02/21/18 02/22/18 21:13 21:45 06:02 Sodium Potassium Chloride Carbon Dioxide Anion Gap BUN Creatinine Est GFR ( Amer) Est GFR (Non-Af Amer) POC Glucose (mg/dL) 137 H 87 Random Glucose Calcium C. difficile Ag & Toxin Negative 02/22/18 02/22/18 02/22/18 08:33 11:31 16:41 Sodium 142 Potassium 4.1 Chloride 110 H Carbon Dioxide 23 Anion Gap 13 BUN 11 Creatinine 1.6 H Est GFR ( Amer) 50 Est GFR (Non-Af Amer) 42 POC Glucose (mg/dL) 138 H 128 H Random Glucose 89 Calcium 8.0 L C. difficile Ag & Toxin
[2018-02-23] MEDS: Vancomycin 125 MG/5 ML SOLN (ORAL/RECTAL) PO SCH ×4 (03:36→21:18)
[2018-02-23 06:36] LABS: BASO # 0.1 K/uL (0.0-0.2); BASO % 0.9 % (0.0-2.0); EOS # 0.2 K/uL (0.0-0.7); EOS % 3.3 % (0.0-4.0); HEMOGLOBIN 10.6 g/dL (12.0-18.0); LYMPH % 30.3 % (20.0-40.0); MEAN CELL VOLUME 85.5 fL (80.0-94.0); MEAN CORPUSCULAR HEMOGLOBIN 29.8 pg (27.0-31.0); MEAN CORPUSCULAR HGB CONC 34.9 g/dL (33.0-37.0); MEAN PLATELET VOLUME 7.2 fL (7.2-11.7); MONO # 0.6 K/uL (0.0-0.8); MONO % 9.7 % (0.0-10.0); NEUT # 3.7 K/uL (1.8-7.0); NEUT % 55.8 % (50.0-75.0); RBC 3.55 Mil/uL (4.40-5.90); RED CELL DISTRIBUTION WIDTH 16.6 % (11.5-14.5); WHITE BLOOD COUNT 6.6 K/uL (4.8-10.8)
[2018-02-23 06:53] LABS: ALB/GLOB RATIO 1.1 (1.0-2.1); ALBUMIN 2.8 g/dL (3.5-5.0); CALCIUM 7.9 mg/dl (8.6-10.4)
[2018-02-23] MEDS: Levothyroxine 25 MCG TAB PO SCH (06:53)
--- NOTE | 2018-02-23 07:36 | CON ---
DATE: 02/22/2018 INFECTIOUS DISEASE CONSULTATION REQUESTED BY: Cici Lerma MD Patient of Dr. Sherice Clay. Dr. Lerma is covering. HISTORY OF PRESENT ILLNESS: This patient is an 82-year-old male. He was admitted on 02/17/2018. He is from the emergency room with abdominal pain. He came in with generalized weakness and vomiting. He has been treated for C. difficile, and the patient reported that the patient was having poor appetite, no intake, and had been vomiting, but had no fever, no chills, no nausea. The patient since then is here. I am asked to evaluate. He is in isolation with contact precautions and has been having abdominal pain, diffuse, 11/17 when he was admitted, was vomiting, no fever, no chills. His temp was 97.7. PAST MEDICAL HISTORY: Significant for Alzheimer's, atrial fibrillation, coronary artery disease, CHF, dementia, diabetes, hypertension, hypercholesterolemia, and hypothyroidism. SURGICAL HISTORY: Right carotid endarterectomy. He has been here. SOCIAL HISTORY: Negative for smoking. Positive for alcohol. No substance abuse. He has had pneumococcal vaccine in 10/2017 on his visit. He was admitted from 01/29/2018 to 02/02/2018 with colitis and 01/05/2018 to 01/08/2018 with pneumonia. I guess he got antibiotics for pneumonia, then developed colitis, and now is admitted with abdominal pain and vomiting. He did say that one time he did had urinary symptoms, it was dysuria, but he denies it now. He was on Cipro and Flagyl and Cipro, I have discontinued today. MEDICATIONS: He is also on aspirin, ergocalciferol, levothyroxine, lisinopril, metformin is on hold, lisinopril is on hold. He is on metoprolol which is active. He is on Flagyl 250 t.i.d. He is on Xarelto for his atrial fib, he gets 10 mg p.o. daily. Then, he is on Crestor. He is on tamsulosin, which is Flomax, and he is on vancomycin 250 mg p.o. four times a day. His daughter was at the bedside when I saw the patient. REVIEW OF SYSTEMS: He is still having blackish stools, but denied any abdominal pain. Denies urinary symptoms. His past medical history is significant for C. difficile and former smoker. Cardiac allred, atrial fibrillation, hypercholesterolemia, hypertension. No pulmonary disorder. He has Alzheimer's dementia. HEENT exam was negative. Renal, he has no kidney disease. Endocrine allred, hypothyroid and diabetic. Blood disorders, none. He had no skin problems. No joint problems. No falls. He has had anesthesia for right carotid endarterectomy. PHYSICAL EXAMINATION: GENERAL: He was having ____(04:24). VITAL SIGNS: T-max is 97.8, pulse 65, blood pressure is 118/67, respirations are 20. HEENT: Head is atraumatic, normocephalic. Pupils are reacting to light. NECK: Supple. JVP is flat. LUNGS: Clear. No crackles or rales present. HEART: S1, S2 are irregularly irregular. ABDOMEN: Soft, nontender. No guarding, no rigidity present. EXTREMITIES: Have no edema, clubbing, or cyanosis. He is moving all his extremities. LABORATORY DATA: White count is 6.4, this is from yesterday. Hemoglobin 11.3, hematocrit 33.4, platelet count is 254. Chemistry shows his sodium is 142, potassium 4.1, chlorides are 110, CO2 is 23, anion gap is 13, BUN is 11 and creatinine 1.6. So, he has renal insufficiency at this time, and the labs were pending. The serology, C. difficile was negative today. He also had renal ultrasound on 02/18/2018, which shows left upper pole renal cyst, otherwise unremarkable. He had a CAT scan recently on the last visit ____(05:48). He had abdominal and pelvic CAT scan on 01/29/2018, which is last month, and this shows evaluation of the bowel is limited in the absence of oral contrast allowing for these findings concerning for noninfectious, inflammatory, or infectious colitis. No bowel obstruction. No significant interval in numerous simple and complicated hepatic cysts, moderate enlargement of the prostate gland, and the medial lobe hypertrophy indenting on the base of the urinary bladder with presumable bladder outlet obstruction and cystitis. Clinical correlation and followup was advised. This is from 01/29/2018. ASSESSMENT AND PLAN: So at this time, I think I will continue to treat him with vancomycin p.o. He will at least need 2 to 3 weeks of vancomycin p.o. and to keep him off all the antibiotics and to put him on acidophilus and to keep off the antibiotics. So that, the diarrhea would improve and even though Clostridium difficile is negative, he does have pancolitis, which was reported on 01/29/2018, and needs to be treated for that. He also has dementia and atrial fibrillation, and he is on his blood thinner. Shilpa Sandoval MD
--- NOTE | 2018-02-23 10:52 | CP.PCM.PN ---
Subjective - Date & Time of Evaluation Date of Evaluation: 02/23/18 Time of Evaluation: 10:49 - Subjective Subjective: COVERING DR Arabella RUTH PT ALERT, NO DISTRESS. ROS ; OTHERWISE NEG. Objective - Vital Signs/Intake and Output Vital Signs (last 24 hours): Temp Pulse Resp BP Pulse Ox 97.9 F 89 20 154/99 H 99 02/23/18 07:34 02/23/18 07:34 02/23/18 07:34 02/23/18 09:12 02/23/18 07:34 Intake and Output: 02/23/18 02/23/18 06:59 18:59 Output Total 400 Balance -400 - Medications Medications: Current Medications Aspirin (Ecotrin) 81 mg PO DAILY [facility] Last Admin: 02/23/18 09:13 Dose: 81 mg Ergocalciferol (Drisdol 50,000 Intl Units Cap) 1 cap PO QWK [facility] Last Admin: 02/18/18 10:25 Dose: 1 cap Levothyroxine Sodium (Synthroid) 25 mcg PO DAILY@0630 [facility] Last Admin: 02/23/18 06:53 Dose: 25 mcg Lisinopril (Zestril) 40 mg PO DAILY [facility] Last Admin: 02/18/18 10:26 Dose: 40 mg Metformin HCl (Glucophage) 500 mg PO BID [facility] Metoprolol Tartrate (Lopressor) 25 mg PO BID [facility] Last Admin: 02/23/18 09:12 Dose: 25 mg Rivaroxaban (Xarelto) 10 mg PO DAILY [facility] Last Admin: 02/23/18 09:12 Dose: 10 mg Rosuvastatin Calcium (Crestor) 5 mg PO HS [facility] Last Admin: 02/22/18 21:16 Dose: 5 mg Tamsulosin HCl (Flomax) 0.4 mg PO DAILY [facility] Last Admin: 02/23/18 09:13 Dose: 0.4 mg Vancomycin HCl (Vancocin (Oral Or Rectal Use)) 250 mg PO Q6H [facility] PRN Reason: Protocol Last Admin: 02/23/18 09:13 Dose: 250 mg - Labs Labs: 02/23/18 06:20 02/23/18 06:20 PT 18.8 SECONDS (9.7-12.2) H 02/17/18 21:02 INR 1.7 02/17/18 21:02 APTT 41 SECONDS (21-34) H 02/17/18 21:02 - Constitutional Appears: No Acute Distress, Chronically Ill - Head Exam Head Exam: ATRAUMATIC, NORMOCEPHALIC - Eye Exam Eye Exam: EOMI, Normal appearance - ENT Exam ENT Exam: Mucous Membranes Moist - Neck Exam Neck Exam: Normal Inspection - Respiratory Exam Respiratory Exam: Decreased Breath Sounds. absent: Respiratory Distress - Cardiovascular Exam Cardiovascular Exam: RRR, +S1, +S2 - GI/Abdominal Exam GI & Abdominal Exam: Soft. absent: Tenderness - Rectal Exam Rectal Exam: Deferred - Extremities Exam Extremities Exam: absent: Calf Tenderness, Pedal Edema - Back Exam Back Exam: absent: CVA tenderness (L), CVA tenderness (R) - Neurological Exam Neurological Exam: Alert, Awake, CN II-XII Intact - Psychiatric Exam Psychiatric exam: Normal Mood - Skin Skin Exam: absent: Rash Assessment and Plan (1) Diabetes Status: Acute (2) Hypertension Status: Acute (3) Acute kidney injury Status: Acute (4) C. difficile colitis Status: Acute - Assessment and Plan (Free Text) Assessment: RESP STATUS NO SIG CHANGE., CONT PULM TOILET., RADIOLOGY REVIEWED. ID EVAL APPRECIATED., AFEBRILE ON AB. PROG POOR. DISCUSSED WITH STAFF. ON TELEMONITOR.
--- NOTE | 2018-02-23 20:29 | CP.PCM.PN ---
Subjective - Date & Time of Evaluation Date of Evaluation: 02/23/18 Time of Evaluation: 02:30 - Subjective Subjective: dictated Objective - Vital Signs/Intake and Output Vital Signs (last 24 hours): Temp Pulse Resp BP Pulse Ox 97.1 F L 71 20 156/87 H 98 02/23/18 15:00 02/23/18 15:00 02/23/18 15:00 02/23/18 17:41 02/23/18 15:00 Intake and Output: 02/23/18 02/24/18 18:59 06:59 Intake Total 800 Balance 800 - Medications Medications: Current Medications Aspirin (Ecotrin) 81 mg PO DAILY [facility] Last Admin: 02/23/18 09:13 Dose: 81 mg Ergocalciferol (Drisdol 50,000 Intl Units Cap) 1 cap PO QWK [facility] Last Admin: 02/18/18 10:25 Dose: 1 cap Levothyroxine Sodium (Synthroid) 25 mcg PO DAILY@0630 [facility] Last Admin: 02/23/18 06:53 Dose: 25 mcg Lisinopril (Zestril) 40 mg PO DAILY [facility] Last Admin: 02/18/18 10:26 Dose: 40 mg Metformin HCl (Glucophage) 500 mg PO BID [facility] Metoprolol Tartrate (Lopressor) 25 mg PO BID [facility] Last Admin: 02/23/18 17:41 Dose: 25 mg Rivaroxaban (Xarelto) 10 mg PO DAILY [facility] Last Admin: 02/23/18 09:12 Dose: 10 mg Rosuvastatin Calcium (Crestor) 5 mg PO HS [facility] Last Admin: 02/22/18 21:16 Dose: 5 mg Tamsulosin HCl (Flomax) 0.4 mg PO DAILY [facility] Last Admin: 02/23/18 09:13 Dose: 0.4 mg Vancomycin HCl (Vancocin (Oral Or Rectal Use)) 250 mg PO Q6H [facility] PRN Reason: Protocol Last Admin: 02/23/18 16:56 Dose: 250 mg - Labs Labs: 02/23/18 06:20 02/23/18 06:20 PT 18.8 SECONDS (9.7-12.2) H 02/17/18 21:02 INR 1.7 02/17/18 21:02 APTT 41 SECONDS (21-34) H 02/17/18 21:02
--- NOTE | 2018-02-24 02:22 | PN ---
DATE: 02/23/2018 SUBJECTIVE: The patient was feeling better. He was not complaining of any urinary symptoms and remains in isolation. He did say that he had two BMs and denies abdominal pain. He remains on vancomycin p.o. PHYSICAL EXAMINATION: VITAL SIGNS: Temperature 97.9, pulse 89. Blood pressure was high, but later on it decreased as I am dictating is 156/83, respirations are 20, heart rate is 71. HEENT: Head is atraumatic, normocephalic. NECK: Supple. LUNGS: Clear. No crackles or rales present at this time. HEART: S1, S2 are regular. ABDOMEN: Soft, nontender. No guarding, no rigidity present. EXTREMITIES: Have no edema. LABORATORY DATA: His labs show white count is 6.6, hemoglobin 10.6, hematocrit is 30.3, platelet count is 222. BUN is 8, creatinine is 1.6. He remains with mild renal insufficiency and he is on a blood thinner also, Xarelto, for his atrial fibrillation. IMPRESSION: He has Clostridium difficile colitis, dehydration, acute renal injury, diabetes, hypertension. PLAN: To continue present treatment. We will follow. Shilpa Sandoval MD
[2018-02-24] MEDS: Vancomycin 125 MG/5 ML SOLN (ORAL/RECTAL) PO SCH ×4 (03:14→21:11)
[2018-02-24] MEDS: Levothyroxine 25 MCG TAB PO SCH (05:52)
[2018-02-24 08:21] LABS: BASO # 0.1 K/uL (0.0-0.2); BASO % 0.7 % (0.0-2.0); EOS # 0.3 K/uL (0.0-0.7); EOS % 4.3 % (0.0-4.0); HEMOGLOBIN 10.8 g/dL (12.0-18.0); LYMPH # 2.5 K/uL (1.0-4.3); LYMPH % 34.7 % (20.0-40.0); MEAN CELL VOLUME 85.7 fL (80.0-94.0); MEAN CORPUSCULAR HEMOGLOBIN 28.9 pg (27.0-31.0); MEAN CORPUSCULAR HGB CONC 33.8 g/dL (33.0-37.0); MEAN PLATELET VOLUME 7.5 fL (7.2-11.7); MONO # 0.6 K/uL (0.0-0.8); NEUT # 3.6 K/uL (1.8-7.0); NEUT % 51.3 % (50.0-75.0); RBC 3.72 Mil/uL (4.40-5.90); WHITE BLOOD COUNT 7.1 K/uL (4.8-10.8)
[2018-02-24 08:45] LABS: ALBUMIN 3.1 g/dL (3.5-5.0); CALCIUM 8.3 mg/dl (8.6-10.4)
--- NOTE | 2018-02-24 12:43 | CP.PCM.PN ---
Subjective - Date & Time of Evaluation Date of Evaluation: 02/24/18 Time of Evaluation: 12:41 - Subjective Subjective: COVERING DR Arabella RUTH PT ALERT, NO PAIN., LESS DIARRHEA. ROS ;OTHERWISE NEG. Objective - Vital Signs/Intake and Output Vital Signs (last 24 hours): Temp Pulse Resp BP Pulse Ox 97.2 F L 90 20 147/87 99 02/24/18 08:00 02/24/18 08:00 02/24/18 08:00 02/24/18 09:20 02/24/18 08:00 Intake and Output: 02/24/18 02/24/18 06:59 18:59 Intake Total 400 Output Total 900 Balance -900 400 - Medications Medications: Current Medications Aspirin (Ecotrin) 81 mg PO DAILY [facility] Last Admin: 02/24/18 09:28 Dose: 81 mg Ergocalciferol (Drisdol 50,000 Intl Units Cap) 1 cap PO QWK [facility] Last Admin: 02/18/18 10:25 Dose: 1 cap Levothyroxine Sodium (Synthroid) 25 mcg PO DAILY@0630 [facility] Last Admin: 02/24/18 05:52 Dose: 25 mcg Lisinopril (Zestril) 40 mg PO DAILY [facility] Last Admin: 02/18/18 10:26 Dose: 40 mg Metformin HCl (Glucophage) 500 mg PO BID [facility] Metoprolol Tartrate (Lopressor) 25 mg PO BID [facility] Last Admin: 02/24/18 09:20 Dose: 25 mg Rivaroxaban (Xarelto) 10 mg PO DAILY [facility] Last Admin: 02/24/18 09:20 Dose: 10 mg Rosuvastatin Calcium (Crestor) 5 mg PO HS [facility] Last Admin: 02/23/18 21:18 Dose: 5 mg Tamsulosin HCl (Flomax) 0.4 mg PO DAILY [facility] Last Admin: 02/24/18 09:20 Dose: 0.4 mg Vancomycin HCl (Vancocin (Oral Or Rectal Use)) 250 mg PO Q6H [facility] PRN Reason: Protocol Last Admin: 02/24/18 09:20 Dose: 250 mg - Labs Labs: 02/24/18 08:11 02/24/18 08:11 PT 18.8 SECONDS (9.7-12.2) H 02/17/18 21:02 INR 1.7 02/17/18 21:02 APTT 41 SECONDS (21-34) H 02/17/18 21:02 - Constitutional Appears: No Acute Distress, Chronically Ill - Head Exam Head Exam: ATRAUMATIC, NORMOCEPHALIC - Eye Exam Eye Exam: EOMI, Normal appearance - ENT Exam ENT Exam: Mucous Membranes Moist - Neck Exam Neck Exam: Normal Inspection - Respiratory Exam Respiratory Exam: absent: Wheezes, Respiratory Distress - Cardiovascular Exam Cardiovascular Exam: RRR, +S1, +S2 - GI/Abdominal Exam GI & Abdominal Exam: Soft. absent: Tenderness - Rectal Exam Rectal Exam: Deferred - Extremities Exam Extremities Exam: absent: Calf Tenderness, Pedal Edema - Back Exam Back Exam: absent: CVA tenderness (L), CVA tenderness (R) - Neurological Exam Neurological Exam: Alert, Awake, CN II-XII Intact - Psychiatric Exam Psychiatric exam: Normal Mood - Skin Skin Exam: absent: Rash Assessment and Plan (1) Diabetes Status: Acute (2) Hypertension Status: Acute (3) Acute kidney injury Status: Acute (4) C. difficile colitis Status: Acute - Assessment and Plan (Free Text) Assessment: RESP STATUS COMFORTABLE AT REST. CONT PULM TOILET. AFEBRILE ON AB PER ID., RADIOLOGY REVIEWED. PROG GUARDED. DISCUSSED WITH STAFF AT LENGTH.
--- NOTE | 2018-02-24 18:54 | CP.PCM.PN ---
Subjective - Date & Time of Evaluation Date of Evaluation: 02/24/18 Time of Evaluation: 01:00 - Subjective Subjective: dictated Objective - Vital Signs/Intake and Output Vital Signs (last 24 hours): Temp Pulse Resp BP Pulse Ox 97.7 F 69 20 158/80 H 96 02/24/18 15:45 02/24/18 15:45 02/24/18 15:45 02/24/18 17:26 02/24/18 15:45 Intake and Output: 02/24/18 02/24/18 06:59 18:59 Intake Total 400 Output Total 900 Balance -900 400 - Medications Medications: Current Medications Aspirin (Ecotrin) 81 mg PO DAILY [facility] Last Admin: 02/24/18 09:28 Dose: 81 mg Ergocalciferol (Drisdol 50,000 Intl Units Cap) 1 cap PO QWK [facility] Last Admin: 02/18/18 10:25 Dose: 1 cap Levothyroxine Sodium (Synthroid) 25 mcg PO DAILY@0630 [facility] Last Admin: 02/24/18 05:52 Dose: 25 mcg Lisinopril (Zestril) 40 mg PO DAILY [facility] Last Admin: 02/18/18 10:26 Dose: 40 mg Metformin HCl (Glucophage) 500 mg PO BID [facility] Metoprolol Tartrate (Lopressor) 25 mg PO BID [facility] Last Admin: 02/24/18 17:26 Dose: 25 mg Rivaroxaban (Xarelto) 10 mg PO DAILY [facility] Last Admin: 02/24/18 09:20 Dose: 10 mg Rosuvastatin Calcium (Crestor) 5 mg PO HS [facility] Last Admin: 02/23/18 21:18 Dose: 5 mg Tamsulosin HCl (Flomax) 0.4 mg PO DAILY [facility] Last Admin: 02/24/18 09:20 Dose: 0.4 mg Vancomycin HCl (Vancocin (Oral Or Rectal Use)) 250 mg PO Q6H [facility] PRN Reason: Protocol Last Admin: 02/24/18 16:34 Dose: 250 mg - Labs Labs: 02/24/18 08:11 02/24/18 08:11 PT 18.8 SECONDS (9.7-12.2) H 02/17/18 21:02 INR 1.7 02/17/18 21:02 APTT 41 SECONDS (21-34) H 02/17/18 21:02
--- NOTE | 2018-02-25 00:11 | PN ---
DATE: 02/24/2018 SUBJECTIVE: The patient was awake, alert. He was saying he wanted to go home. Denied any diarrhea. I have not heard of any complaints now, but two days back, he was having greenish bowel movements and had discontinued his Cipro. He is on vancomycin p.o. at this time and his other meds. PHYSICAL EXAMINATION: VITAL SIGNS: T-max is 97.7, pulse 69, blood pressure 164/83, respirations are 20. HEENT: Head is atraumatic, normocephalic. NECK: Supple. LUNGS: Clear. HEART: S1, S2 is regular. ABDOMEN: Soft. Nontender. No guarding. No rigidity present. He remains on Xarelto which was his previous med. At this time, he is on vancomycin p.o. and ____ was negative. I would suggest to continue treatment for diarrhea at this time, and the patient has been on antibiotics since 02/17/2018 so it may be okay to give him another two weeks. We will follow. Shilpa Sandoval MD
[2018-02-25] MEDS: Vancomycin 125 MG/5 ML SOLN (ORAL/RECTAL) PO SCH ×4 (03:54→21:23)
[2018-02-25] MEDS: Levothyroxine 25 MCG TAB PO SCH (05:38)
[2018-02-25 07:53] LABS: BASO % 0.7 % (0.0-2.0); EOS # 0.3 K/uL (0.0-0.7); EOS % 4.1 % (0.0-4.0); HEMOGLOBIN 10.4 g/dL (12.0-18.0); LYMPH % 31.7 % (20.0-40.0); MEAN CELL VOLUME 86.2 fL (80.0-94.0); MEAN CORPUSCULAR HEMOGLOBIN 29.5 pg (27.0-31.0); MEAN CORPUSCULAR HGB CONC 34.2 g/dL (33.0-37.0); MEAN PLATELET VOLUME 7.4 fL (7.2-11.7); MONO # 0.6 K/uL (0.0-0.8); MONO % 9.5 % (0.0-10.0); NEUT # 3.5 K/uL (1.8-7.0); NRBC % 0.1 % (0.0-2.0); RBC 3.54 Mil/uL (4.40-5.90); RED CELL DISTRIBUTION WIDTH 16.7 % (11.5-14.5); WHITE BLOOD COUNT 6.4 K/uL (4.8-10.8)
[2018-02-25 08:07] LABS: ALBUMIN 2.8 g/dL (3.5-5.0); CALCIUM 8.2 mg/dl (8.6-10.4)
[2018-02-25] MEDS: Ergocalciferol 50,000 Intl Units Cap PO SCH (10:56)
--- NOTE | 2018-02-25 14:34 | CP.PCM.PN ---
Subjective - Date & Time of Evaluation Date of Evaluation: 02/25/18 Time of Evaluation: 07:45 - Subjective Subjective: clinically same Objective - Vital Signs/Intake and Output Vital Signs (last 24 hours): Temp Pulse Resp BP Pulse Ox 97.8 F 79 20 135/78 99 02/25/18 07:00 02/25/18 07:00 02/25/18 07:00 02/25/18 10:56 02/25/18 07:00 Intake and Output: 02/25/18 02/25/18 06:59 18:59 Intake Total 480 Balance 480 - Medications Medications: Current Medications Aspirin (Ecotrin) 81 mg PO DAILY [facility] Last Admin: 02/25/18 11:05 Dose: 81 mg Ergocalciferol (Drisdol 50,000 Intl Units Cap) 1 cap PO QWK [facility] Last Admin: 02/25/18 10:56 Dose: 1 cap Levothyroxine Sodium (Synthroid) 25 mcg PO DAILY@0630 [facility] Last Admin: 02/25/18 05:38 Dose: 25 mcg Lisinopril (Zestril) 40 mg PO DAILY [facility] Last Admin: 02/18/18 10:26 Dose: 40 mg Metformin HCl (Glucophage) 500 mg PO BID [facility] Metoprolol Tartrate (Lopressor) 25 mg PO BID [facility] Last Admin: 02/25/18 10:56 Dose: 25 mg Rivaroxaban (Xarelto) 10 mg PO DAILY [facility] Last Admin: 02/25/18 10:56 Dose: 10 mg Rosuvastatin Calcium (Crestor) 5 mg PO HS [facility] Last Admin: 02/24/18 21:11 Dose: 5 mg Tamsulosin HCl (Flomax) 0.4 mg PO DAILY [facility] Last Admin: 02/25/18 10:56 Dose: 0.4 mg Vancomycin HCl (Vancocin (Oral Or Rectal Use)) 250 mg PO Q6H [facility] PRN Reason: Protocol Last Admin: 02/25/18 11:07 Dose: 250 mg - Labs Labs: 02/25/18 07:37 02/25/18 07:37 PT 18.8 SECONDS (9.7-12.2) H 02/17/18 21:02 INR 1.7 02/17/18 21:02 APTT 41 SECONDS (21-34) H 02/17/18 21:02 - Constitutional Appears: Well - Head Exam Head Exam: ATRAUMATIC, NORMAL INSPECTION, NORMOCEPHALIC - Eye Exam Eye Exam: EOMI, Normal appearance, PERRL Pupil Exam: NORMAL ACCOMODATION, PERRL - ENT Exam ENT Exam: Mucous Membranes Moist, Normal Exam - Neck Exam Neck Exam: Full ROM, Normal Inspection. absent: Lymphadenopathy - Respiratory Exam Respiratory Exam: Decreased Breath Sounds - Cardiovascular Exam Cardiovascular Exam: REGULAR RHYTHM, +S1, +S2 - GI/Abdominal Exam GI & Abdominal Exam: Soft, Diminished Bowel Sounds - Rectal Exam Rectal Exam: Deferred
--- NOTE | 2018-02-25 15:35 | CP.PCM.PN ---
Subjective - Date & Time of Evaluation Date of Evaluation: 02/25/18 Time of Evaluation: 03:00 - Subjective Subjective: dictated Objective - Vital Signs/Intake and Output Vital Signs (last 24 hours): Temp Pulse Resp BP Pulse Ox 97.8 F 79 20 135/78 99 02/25/18 07:00 02/25/18 07:00 02/25/18 07:00 02/25/18 10:56 02/25/18 07:00 Intake and Output: 02/25/18 02/25/18 06:59 18:59 Intake Total 480 Balance 480 - Medications Medications: Current Medications Aspirin (Ecotrin) 81 mg PO DAILY [facility] Last Admin: 02/25/18 11:05 Dose: 81 mg Ergocalciferol (Drisdol 50,000 Intl Units Cap) 1 cap PO QWK [facility] Last Admin: 02/25/18 10:56 Dose: 1 cap Levothyroxine Sodium (Synthroid) 25 mcg PO DAILY@0630 [facility] Last Admin: 02/25/18 05:38 Dose: 25 mcg Lisinopril (Zestril) 40 mg PO DAILY [facility] Last Admin: 02/18/18 10:26 Dose: 40 mg Metformin HCl (Glucophage) 500 mg PO BID [facility] Metoprolol Tartrate (Lopressor) 25 mg PO BID [facility] Last Admin: 02/25/18 10:56 Dose: 25 mg Rivaroxaban (Xarelto) 10 mg PO DAILY [facility] Last Admin: 02/25/18 10:56 Dose: 10 mg Rosuvastatin Calcium (Crestor) 5 mg PO HS [facility] Last Admin: 02/24/18 21:11 Dose: 5 mg Tamsulosin HCl (Flomax) 0.4 mg PO DAILY [facility] Last Admin: 02/25/18 10:56 Dose: 0.4 mg Vancomycin HCl (Vancocin (Oral Or Rectal Use)) 250 mg PO Q6H [facility] PRN Reason: Protocol Last Admin: 02/25/18 11:07 Dose: 250 mg - Labs Labs: 02/25/18 07:37 02/25/18 07:37 PT 18.8 SECONDS (9.7-12.2) H 02/17/18 21:02 INR 1.7 02/17/18 21:02 APTT 41 SECONDS (21-34) H 02/17/18 21:02
[2018-02-25] MEDS: Lactobacillus Acidophilus 500 MU Cap PO SCH (17:56)
--- NOTE | 2018-02-25 20:16 | PN ---
DATE: 02/25/2018 SUBJECTIVE: I went to see the patient. He still has poor appetite. His daughter was there. He says he is not trying to eat. Every time he eats, his abdomen makes such a noise and he has to have a BM, and he does not want to tell the people here as he gets embarrassed to be cleaned, so he is still having diarrhea. OBJECTIVE: VITAL SIGNS: T-max is 97.8, pulse 79, blood pressure is 153/88, respirations are 20. He denies any nausea or vomiting. His appetite still remains poor. Denies any other complaints. He is still in isolation. His C. diff did come out negative at this time. He is on Ecotrin, Drisdol, Synthroid, Zestril, Glucophage, Lopressor, Xarelto, Crestor, Flomax, and vancomycin. Now, his C. diff is negative and his Glucophage is on hold, so I am not sure if he continues to have still diarrhea so we will add some Acidophilus Bacid also may help and if it is not improving further, I think we should consider to get a GI eval to look in if this is just C. diff or there is some other etiology of diarrhea. We will continue with vancomycin and Bacid at this time. We will follow. The patient also has history of and patient also has hypothyroidism, hypertension, and diabetes. Shilpa Sandoval MD
[2018-02-26] MEDS: Vancomycin 125 MG/5 ML SOLN (ORAL/RECTAL) PO SCH ×2 (04:39→10:17)
[2018-02-26] MEDS: Levothyroxine 25 MCG TAB PO SCH (05:30)
[2018-02-26 07:21] LABS: BASO % 0.8 % (0.0-2.0); EOS # 0.3 K/uL (0.0-0.7); EOS % 5.5 % (0.0-4.0); HEMOGLOBIN 10.7 g/dL (12.0-18.0); LYMPH # 2.2 K/uL (1.0-4.3); LYMPH % 36.6 % (20.0-40.0); MEAN CELL VOLUME 85.8 fL (80.0-94.0); MEAN CORPUSCULAR HEMOGLOBIN 29.2 pg (27.0-31.0); MEAN CORPUSCULAR HGB CONC 34.1 g/dL (33.0-37.0); MEAN PLATELET VOLUME 7.3 fL (7.2-11.7); MONO # 0.6 K/uL (0.0-0.8); MONO % 10.5 % (0.0-10.0); NEUT # 2.8 K/uL (1.8-7.0); NEUT % 46.6 % (50.0-75.0); RBC 3.66 Mil/uL (4.40-5.90)
[2018-02-26 07:32] LABS: ALBUMIN 2.7 g/dL (3.5-5.0); CALCIUM 8.2 mg/dl (8.6-10.4)
[2018-02-26 08:18] VITALS: O2SAT 98
[2018-02-26] MEDS: Lactobacillus Acidophilus 500 MU Cap PO SCH ×2 (10:17→17:32)
--- NOTE | 2018-02-26 15:44 | CP.PCM.PN ---
Subjective - Date & Time of Evaluation Date of Evaluation: 02/26/18 Time of Evaluation: 03:35 - Subjective Subjective: dictated Objective - Vital Signs/Intake and Output Vital Signs (last 24 hours): Temp Pulse Resp BP Pulse Ox 97.7 F 97 H 20 158/82 H 98 02/26/18 07:17 02/26/18 07:17 02/26/18 07:17 02/26/18 10:17 02/26/18 07:17 Intake and Output: 02/26/18 02/26/18 06:59 18:59 Intake Total 200 Output Total 450 Balance -250 - Medications Medications: Current Medications Aspirin (Ecotrin) 81 mg PO DAILY [facility] Last Admin: 02/26/18 10:17 Dose: 81 mg Cyproheptadine HCl (Periactin) 4 mg PO DAILY [facility] Last Admin: 02/26/18 10:16 Dose: 4 mg Ergocalciferol (Drisdol 50,000 Intl Units Cap) 1 cap PO QWK [facility] Last Admin: 02/25/18 10:56 Dose: 1 cap Lactobacillus Acidophilus (Bacid Acidophilus) 1 cap PO BID [facility] Last Admin: 02/26/18 10:17 Dose: 1 cap Levothyroxine Sodium (Synthroid) 25 mcg PO DAILY@0630 [facility] Last Admin: 02/26/18 05:30 Dose: 25 mcg Lisinopril (Zestril) 40 mg PO DAILY [facility] Last Admin: 02/18/18 10:26 Dose: 40 mg Metformin HCl (Glucophage) 500 mg PO BID [facility] Metoprolol Tartrate (Lopressor) 25 mg PO BID [facility] Last Admin: 02/26/18 10:17 Dose: 25 mg Rivaroxaban (Xarelto) 10 mg PO DAILY [facility] Last Admin: 02/26/18 10:17 Dose: 10 mg Rosuvastatin Calcium (Crestor) 5 mg PO HS [facility] Last Admin: 02/25/18 21:23 Dose: 5 mg Tamsulosin HCl (Flomax) 0.4 mg PO DAILY [facility] Last Admin: 02/26/18 10:17 Dose: 0.4 mg Vancomycin HCl (Vancocin (Oral Or Rectal Use)) 250 mg PO QID [facility] PRN Reason: Protocol - Labs Labs: 02/26/18 07:08 02/26/18 07:08 PT 18.8 SECONDS (9.7-12.2) H 07/11/18 21:02 INR 1.7 02/17/18 21:02 APTT 41 SECONDS (21-34) H 02/17/18 21:02
[2018-02-26 16:38] VITALS: PULSE 81; RESP 16; TEMP 97.8
[2018-02-26 17:33] VITALS: BP 148/84
[2018-02-26] MEDS ORDERED: Vancomycin 125 MG/5 ML SOLN (ORAL/RECTAL) PO SCH (18:00)
--- NOTE | 2018-02-27 16:44 | IP.NPCORE ---
Heart Failure Core Measure - Heart Failure Ejection Fraction: 40 % or Greater RIP Inhibitor Prescribed: Yes Beta-Stephanie Prescribed: Metoprolol Succinate Angiotensin II Receptor Stephanie Prescribed: No Contraindication/Reason for not providing: RIP AnticoagulationTherapy for Atrial Fibrillation/Atrialflutter: Yes Aldosterone Antagonist Prescribed: No Contraindication/Reason for not providing: NOT INDICATED BY THE [employer] ASSISTANT COACH Hydralazine Nitrate Prescribed: No Contraindication/Reason for not providing: NOT INDICATED BY THE [employer] ASSISTANT COACH Implantable Cardioverter Defibrillator Therapy: No Contraindication/Reason for not providing: EF IS GREATER THAN 40 Cardiac Resynchronization Therapy Prescribed: No Contraindication/Reason for not providing: EF IS GREATER THAN 40 - Follow up Will be discharged to: Detention Facility ([facility]
== END 2018-02-26 19:32 | DRG 385 ==
LOC: C.ER 20:10 → C.9E 21:53 → C.3T 22:29 → C.5S 02-18 01:22
PROVIDERS: ADMIT Internal Medicine Nephrology; ATTEND Internal Medicine Nephrology
DX: K51.00 Ulcerative (chronic) pancolitis without complications (principal); K85.90 Acute pancreatitis without necrosis or infection, unspecified; N17.9 Acute kidney failure, unspecified; A04.71 Enterocolitis due to Clostridium difficile, recurrent; E03.9 Hypothyroidism, unspecified; E11.9 Type 2 diabetes mellitus without complications; E78.00 Pure hypercholesterolemia, unspecified; E86.0 Dehydration; F02.80 Dementia in other diseases classified elsewhere, unspecified severity, without behavioral disturbance, psychotic disturbance, mood disturbance, and anxiety; G30.9 Alzheimer's disease, unspecified; I25.10 Atherosclerotic heart disease of native coronary artery without angina pectoris; I11.0 Hypertensive heart disease with heart failure; I48.91 Unspecified atrial fibrillation; I50.9 Heart failure, unspecified; N40.0 Benign prostatic hyperplasia without lower urinary tract symptoms; Z87.891 Personal history of nicotine dependence

== ENCOUNTER 2018-03-22 12:57 | Emergency (ER) | payer MEDICARE, OTHER ==
[2018-03-22 12:57] VITALS: PULSE 70; BMI 34.2
[2018-03-22] MEDS ORDERED: Sodium Chloride 0.9% 1,000 ML IV STA (13:43)
--- NOTE | 2018-03-22 13:49 | C.PDOC ---
History Of Present Illness 82 y/o M c PMHx Alzheimer's Disease, Atrial Fibrillation, CAD, CHF, Diabetes, HTN, Hypercholesterolemia, Hypothyroidism. Right Carotid Endarterectomy p/w abdominal pain x few days. Pain is diffusely in the abdomen, moderate in severity, associated with loss of appetite, nausea, NBNB vomiting, and NB diarrhea. Denies fever, chills, dyspnea, rash, dysuria. Family states patient has been to this ED 4 previous times for the same complaint. PMD Selvin Time Seen by Provider: 03/22/18 13:08 Chief Complaint (Nursing): Abdominal Pain Past Medical History Vital Signs: Last Vital Signs Temp 98.3 F 03/22/18 13:40 Pulse 96 H 03/22/18 13:40 Resp 20 03/22/18 13:40 BP 115/64 03/22/18 13:40 Pulse Ox 98 03/22/18 13:40 - Medical History PMH: Alzheimer's Disease, Atrial Fibrillation, CAD, CHF, Dementia, Diabetes, HTN , Hypercholesterolemia, Hypothyroidism Denies: Chronic Kidney Disease Comment Only: Cardia Arrhythmia (A FIB) [facility]: [facility]AR ARTERIOGR-2 CATH (09/19/13) HEAD & NECK ENDARTER NEC (09/19/13) LEFT HEART CARDIAC CATH (09/19/13) LT HEART ANGIOCARDIOGRAM (09/19/13) PROCEDURE ON SINGLE VESSEL (09/19/13) Family History: States: Unknown Family Hx - Social History Hx Tobacco Use: No Hx Alcohol Use: Yes Hx Substance Use: No - Immunization History Hx Tetanus Toxoid Vaccination: No Hx Influenza Vaccination: Yes (10/2017) Hx Pneumococcal Vaccination: Yes (10/2017) Review Of Systems Except As Marked, All Systems Reviewed And Found Negative. Constitutional: Negative for: Fever Cardiovascular: Negative for: Chest Pain Physical Exam - Physical Exam Additional Physical Exam Comments: Constitutional: No acute distress. Head: Normocephalic. Atraumatic. Eyes: PERRL. ENT: Moist mucous membranes. Neck: Supple. Cardiovascular: Regular rate. Radial pulse 2+ bilaterally. Chest: No tenderness. Respiratory: Clear to auscultation bilaterally. GI: Soft. Nontender. Nondistended. Back: No CVA tenderness. Musculoskeletal: No tenderness or swelling of extremities. Skin: No rash. Neurologic: Alert, no focal deficit. ED Course And Treatment - Laboratory Results Result Diagrams: 03/22/18 14:22 03/22/18 14:22 - Other Rad CXR X-Ray: Viewed By Me, Read By Radiologist Interpretation: Date of service: 03/22/2018. HISTORY: r/o PNA. COMPARISON: 01/29/2018. FINDINGS: LUNGS: No active pulmonary disease. PLEURA: No significant pleural effusion identified, no pneumothorax apparent. CARDIOVASCULAR: Normal. OSSEOUS STRUCTURES: No significant abnormalities. VISUALIZED UPPER ABDOMEN: Normal. OTHER FINDINGS: None. IMPRESSION: No active disease. No significant interval change compared to the prior examination (s). Limitations of the current examination: Rotation and portable technique accentuates pulmonary findings right lower lobe. However no discrete infiltrates are felt to be present. Medical Decision Making Medical Decision Making: Elderly male with abdominal pain, vomiting, an loose stool. Multiple recent hospitalizations. Will further assess for C diff, dehydration. Patient actually had C diff testing during his last admission, which was negative. No leukocytosis, Hb stable, Cr/GFR normal. Family feels comfortable taking patient home and PMD f/u. Instructed to return to ED for worsening pain, fever, vomiting, dyspnea, or any other problem. Disposition - Disposition Referrals: Shaik Montalvo MD [Staff Provider] - Disposition: HOME/ ROUTINE Disposition Time: 15:01 Condition: STABLE Prescriptions: Ondansetron ODT [Zofran ODT] 4 mg PO Q8 #12 odt Instructions: Nausea and Vomiting, Adult Forms: [facility] (Gambian) - Clinical Impression Clinical Impression: Vomiting, Diarrhea
--- NOTE | 2018-03-22 14:30 | RAD ---
Date of service: 03/22/2018 HISTORY: r/o PNA COMPARISON: 01/29/2018 FINDINGS: LUNGS: No active pulmonary disease. PLEURA: No significant pleural effusion identified, no pneumothorax apparent. CARDIOVASCULAR: Normal. OSSEOUS STRUCTURES: No significant abnormalities. VISUALIZED UPPER ABDOMEN: Normal. OTHER FINDINGS: None. IMPRESSION: No active disease. No significant interval change compared to the prior examination(s). Limitations of the current examination: Rotation and portable technique accentuates pulmonary findings right lower lobe. However no discrete infiltrates are felt to be present.
[2018-03-22 14:33] LABS: BASO % 0.2 % (0.0-2.0); EOS # 0.1 K/uL (0.0-0.7); EOS % 1.7 % (0.0-4.0); HEMOGLOBIN 11.5 g/dL (12.0-18.0); LYMPH # 2.6 K/uL (1.0-4.3); LYMPH % 34.3 % (20.0-40.0); MEAN CORPUSCULAR HEMOGLOBIN 29.3 pg (27.0-31.0); MEAN CORPUSCULAR HGB CONC 33.3 g/dL (33.0-37.0); MEAN PLATELET VOLUME 7.6 fL (7.2-11.7); MONO # 1.1 K/uL (0.0-0.8); MONO % 14.5 % (0.0-10.0); NEUT # 3.7 K/uL (1.8-7.0); NEUT % 49.3 % (50.0-75.0); NRBC % 0.1 % (0.0-2.0); RBC 3.93 Mil/uL (4.40-5.90); RED CELL DISTRIBUTION WIDTH 17.8 % (11.5-14.5); WHITE BLOOD COUNT 7.5 K/uL (4.8-10.8)
[2018-03-22 14:41] LABS: MEAN CELL VOLUME 88.1 fL (80.0-94.0)
[2018-03-22 14:49] LABS: ALB/GLOB RATIO 1.1 (1.0-2.1); ALT/SGPT 27 U/L (21-72); AST/SGOT 68 U/L (17-59); BLOOD UREA NITROGEN 14 mg/dL (9-20); CALCIUM 7.9 mg/dl (8.6-10.4); GFR AFRICAN-AMERICAN > 60; GFR NON-AFRICAN AMERICAN > 60; LIPASE 20 U/L (23-300)
[2018-03-22 15:45] VITALS: BP 127/77; PULSE 98; RESP 18; TEMP 97.5; O2SAT 99
== END 2018-03-22 15:50 | disposition home or self-care (01) ==
LOC: C.ER 12:57
DX: R11.2 Nausea with vomiting, unspecified (principal); R19.7 Diarrhea, unspecified; E11.9 Type 2 diabetes mellitus without complications; E78.00 Pure hypercholesterolemia, unspecified; I10 Essential (primary) hypertension; E03.9 Hypothyroidism, unspecified; G30.9 Alzheimer's disease, unspecified; I48.91 Unspecified atrial fibrillation; I25.10 Atherosclerotic heart disease of native coronary artery without angina pectoris; I50.9 Heart failure, unspecified
CPT/HCPCS: 71045; 80053; 83690; 85025; 96374; 99284; J2405

== ENCOUNTER 2018-08-11 14:09 | Inpatient (IN) | payer MEDICARE, OTHER ==
[2018-08-11 14:09] VITALS: BMI 34.2
[2018-08-11] MEDS ORDERED: Sodium Chloride 0.9% 500 ML IV SCH (14:29)
[2018-08-11] MEDS ORDERED: Sodium Chloride 0.9% 500 ML IV ONE (14:29)
--- NOTE | 2018-08-11 14:38 | C.PDOC ---
History Of Present Illness 83 y/o male, with history of hypertension, diabetes, and past AL 4 years ago, is brought in by EMS after found him collapsed on the sidewalk. states that patient got up this morning, felt fine, had breakfast and lunch, and went to the bank. While walking in front of him, states she turned around and found him collapsed on the sidewalk. EMS was called and patient was found to be in cardiac arrest. CPR initiated and patient got one defibrillation with spontaneous return of vital signs. Patient was unresponsive and intubated without sedation. Pupils pinpoint and constricted. Was given .4 of narcan and 500 ml saline on route with no change. On arrival, patient continued to be unresponsive with pinpoint pupils. Chief Complaint (Nursing): Cardiac Arrest History Per: EMS Circumstances: Brought To ED By EMS CPR Initiated Prior To MD Arrival?: Yes Treatment Initiated Prior To MD Arrival: Yes: CPR, Intubation, Defibrillation Past Medical History Reviewed: Historical Data, Nursing Documentation, Vital Signs - Medical History PMH: Alzheimer's Disease, Atrial Fibrillation, CAD, CHF, Dementia, Diabetes, HTN, Hypercholesterolemia, Hypothyroidism Denies: Chronic Kidney Disease Comment Only: Cardia Arrhythmia (A FIB) Surgical History: Carotid Endarterectomy (RIGHT) - [facility] Procedures CORONAR ARTERIOGR-2 CATH (09/19/13) HEAD & NECK ENDARTER NEC (09/19/13) LEFT HEART CARDIAC CATH (09/19/13) LT HEART ANGIOCARDIOGRAM (09/19/13) PROCEDURE ON SINGLE VESSEL (09/19/13) Family History: States: No Known Family Hx - Social History Hx Tobacco Use: No Hx Alcohol Use: Yes Hx Substance Use: No - Immunization History Hx Tetanus Toxoid Vaccination: No Hx Influenza Vaccination: Yes (10/2017) Hx Pneumococcal Vaccination: Yes (10/2017) Review Of Systems ENT: Positive for: Other (Pinpoint pupils) Cardiovascular: Positive for: Other (Cardiac arrest) Neurological: Positive for: Other (LOC) Physical Exam - Physical Exam Appears: Non-toxic, Other (unresponsive) Skin: Warm, Dry Head: Atraumatic, Normacephalic Eye(s): bilateral: Other (pinpoint pupils) Oral Mucosa: Moist Neck: No Trachea Deviated, No Step Off Deformity Chest: Symmetrical Cardiovascular: Rhythm Regular, No Murmur Respiratory: Normal Breath Sounds (with assistance), No Rales, No Rhonchi, No Wheezing Gastrointestinal/Abdominal: Soft, No Tenderness Extremity: Bilateral: Atraumatic, Normal Color And Temperature Neurological/Psych: No Response To Commands Pain Response: No Response To Pain ED Course And Treatment - Laboratory Results Result Diagrams: 08/11/18 14:36 08/11/18 14:36 Interpretation Of ECG: ST segment elevation seen initially in field is no longer present. New EKG: Atrial fibrillation with diffuse ST segment changes but no elevations. - Other Rad CXR X-Ray: Read By Radiologist Interpretation: FINDINGS: LUNGS: No active pulmonary disease. PLEURA: No significant pleural effusion identified, no pneumothorax apparent. CARDIOVASCULAR: There is atherosclerotic calcification of the aortic arch. Normal heart size. Endotracheal tube noted with tip approximately 5.4 cm above the tracheal carolann. No congestive change. OSSEOUS STRUCTURES: No significant abnormalities. VISUALIZED UPPER ABDOMEN: Normal. OTHER FINDINGS: None. IMPRESSION: New endotracheal tube tip 5.4 cm above the tracheal carolann. - CT Scan/US Head CT Other Rad Studies (CT/US): Read By Radiologist, Radiology Report Reviewed CT/US Interpretation: FINDINGS: HEMORRHAGE: No intracranial hemorrhage. BRAIN: Diffuse atrophy with prominence of the ventricles and sulci noted. No mass effect or edema. Dense intracranial atherosclerosis. Bilateral basal ganglia calcifications. Small hypodensity involving the right frontal vertex appears consistent with chronic or remote infarction. Scattered periventricular and subcortical white matter hypodensities, which are nonspecific, but often seen with chronic microvascular ischemic disease. Please note that MRI with diffusion imaging is more sensitive in the detection of acute ischemic event. VENTRICLES: No hydrocephalus. CALVARIUM: Unremarkable. PARANASAL SINUSES: Unremarkable as visualized. No significant inflammatory changes. MASTOID AIR CELLS: Fluid noted within the right mastoid air cells. The left mastoid air cells appear clear. OTHER FINDINGS: Bilateral partial opacification of the external auditory canals, likely cerumen. IMPRESSION: Small hypodensity involving the right frontal vertex appears consistent with chronic or remote infarction. Moderate nonspecific white matter changes. Fluid within the right mastoid air cells; correlate clinically for mastoiditis. Generalized atrophy. Additional incidental findings as above. Medical Decision Making Medical Decision Making: Plan: --Head CT --Bloodwork --EKG --Chest XR 14:20 -- Case was referred to Dr. Dupont as per Dr. Arabella Clay. EKG was faxed to him and he agrees it does not meet criteria for code heart at this time. Disposition - Disposition Disposition: HOSPITALIZED Disposition Time: 16:00 Condition: CRITICAL - POA Present On Arrival: None - Clinical Impression Clinical Impression: Cardiac arrest, Respiratory arrest, Afib - Scribe Statement The provider has reviewed the documentation as recorded by the Dino Tobin Provider Attestation: All medical record entries made by the Dino were at my direction and personally dictated by me. I have reviewed the chart and agree that the record accurately reflects my personal performance of the history, physical exam, medical decision making, and the department course for this patient. I have also personally directed, reviewed, and agree with the discharge instructions and disposition.
[2018-08-11 14:45] LABS: BASO % 0.4 % (0.0-2.0); EOS # 0.2 K/uL (0.0-0.7); EOS % 2.1 % (0.0-4.0); HEMOGLOBIN 12.4 g/dL (12.0-18.0); LYMPH # 3.9 K/uL (1.0-4.3); LYMPH % 44.1 % (20.0-40.0); MEAN CORPUSCULAR HEMOGLOBIN 30.2 pg (27.0-31.0); MEAN CORPUSCULAR HGB CONC 32.7 g/dL (33.0-37.0); MEAN PLATELET VOLUME 7.7 fL (7.2-11.7); MONO # 0.5 K/uL (0.0-0.8); MONO % 5.6 % (0.0-10.0); NEUT # 4.2 K/uL (1.8-7.0); NEUT % 47.8 % (50.0-75.0); NRBC % 0.1 % (0.0-2.0); RBC 4.09 Mil/uL (4.40-5.90); RED CELL DISTRIBUTION WIDTH 14.3 % (11.5-14.5); WHITE BLOOD COUNT 8.8 K/uL (4.8-10.8)
[2018-08-11 14:46] LABS: MEAN CELL VOLUME 92.4 fL (80.0-94.0)
[2018-08-11 14:51] LABS: INR 2.1; PROTHROMBIN TIME 22.7 SECONDS (9.7-12.2)
[2018-08-11 15:02] LABS: ALB/GLOB RATIO 1.3 (1.0-2.1); CALCIUM 8.5 mg/dl (8.6-10.4)
[2018-08-11 15:13] LABS: CK-MB 1.57 ng/mL (0.0-3.38); TROPONIN I 0.04 ng/mL (0.00-0.120)
--- NOTE | 2018-08-11 15:21 | RAD ---
Date of service: 08/11/2018 HISTORY: post arrest intubation COMPARISON: 03/22/2018 FINDINGS: LUNGS: No active pulmonary disease. PLEURA: No significant pleural effusion identified, no pneumothorax apparent. CARDIOVASCULAR: There is atherosclerotic calcification of the aortic arch. Normal heart size. Endotracheal tube noted with tip approximately 5.4 cm above the tracheal carolann. No congestive change. OSSEOUS STRUCTURES: No significant abnormalities. VISUALIZED UPPER ABDOMEN: Normal. OTHER FINDINGS: None. IMPRESSION: New endotracheal tube tip 5.4 cm above the tracheal carolann.
--- NOTE | 2018-08-11 15:28 | CP.PCM.CON ---
<Bhargav Amezquita - Last Filed: 08/11/18 17:17> History of Present Illness - History of Present Illness History of Present Illness: PGY-1 Critical Care Consult Note for Dr. Ocampo's service CC: Cardiac Arrest HPI: Patient is an 83 yo male w/ PMH of Alzheimer's disease, CAD, atrial fibrillation, hypertension, hypercholesterolemia, dementia admitted to ICU s/p intubated and cardiac arrest in field. EMS intubated patient and achieved ROSC after 1 x episode of defibrillation. Patient's at bedside provided limited history using bi manager machine. According to and chart review, patient and his were walking across a street when she turned around to find her on the ground and non responsive. EMS was called who initiated CPR and achieved ROSC after defib. On EKG en route it was noted to have ST elevations but no that EKG report is no longer available. During evaluation patient was non-responsive and intubated. Limited history as patient is intubated and at bedside provided very limited story. Patient's states that her only complained about a headache and leg pain which she attributed to arthritis PMH- Alzheimer's disease, CAD, atrial fibrillation, hypertension, hypercholesterolemia, dementia PSH- unable to obtain FH- unable to obtain Meds- Call [facility] Allergies- NKDA Social- unable to obtain PMD- unable to obtain Will call daughter who works at [employer] [facility] [employer] [facility] for further information. Info in demographics Review of Systems - Review of Systems Systems not reviewed;Unavailable: Intubated Past Patient History - Infectious Disease Hx of Infectious Diseases: C.diff - Past Medical History & Family History Past Medical History?: Yes - Past Social History Smoking Status: Former Smoker - CARDIAC Hx Atrial Fibrillation: Yes Hx Cardia Arrhythmia: (A FIB) Hx Congestive Heart Failure: Yes Hx Hypercholesterolemia: Yes Hx Hypertension: Yes - PULMONARY Hx Respiratory Disorders: No - NEUROLOGICAL Hx Alzheimer's Disease: Yes Hx Dementia: Yes - HEENT Hx HEENT Problems: No - RENAL Hx Chronic Kidney Disease: No - ENDOCRINE/METABOLIC Hx Hypothyroidism: Yes - HEMATOLOGICAL/ONCOLOGICAL Hx Blood Disorders: No - INTEGUMENTARY Hx Dermatological Problems: No - MUSCULOSKELETAL/RHEUMATOLOGICAL Hx Musculoskeletal Disorders: Yes Hx Falls: Yes (Denies) - GASTROINTESTINAL Hx Gastrointestinal Disorders: No - GENITOURINARY/GYNECOLOGICAL Hx Prostate Problems: Yes - PSYCHIATRIC Hx Substance Use: No - SURGICAL HISTORY Hx Carotid Endarterectomy: Yes (RIGHT) - ANESTHESIA Hx Anesthesia: Yes Hx Anesthesia Reactions: No Hx Malignant Hyperthermia: No Meds Allergies/Adverse Reactions: Allergies Allergy/AdvReac Type Severity Reaction Status Date / Time No Known Allergies Allergy Verified 08/11/18 14:21 Physical Exam - Constitutional Appears: Toxic, In Acute Distress - Head Exam Additional comments: bruising w/ ecchymosis above left eye 2/2 fall - Eye Exam Eye Exam: absent: Nystagmus, Scleral icterus - ENT Exam ENT Exam: Mucous Membranes Dry - Respiratory Exam Additional comments: ET tube in place - Cardiovascular Exam Cardiovascular Exam: Tachycardia, Irregular Rhythm. absent: REGULAR RHYTHM - GI/Abdominal Exam GI & Abdominal Exam: Normal Bowel Sounds, Soft. absent: Diminished Bowel Sounds, Distended, Firm, Guarding, Tenderness - Extremities Exam Extremities exam: Positive for: normal inspection. Negative for: calf tenderness, pedal edema - Back Exam Back exam: NORMAL INSPECTION - Neurological Exam Additional comments: not alert, decorticate positioning - Skin Skin Exam: Intact, Normal Color Results - Labs Result Diagrams: 08/11/18 14:36 08/11/18 14:36 Labs: Laboratory Results - last 24 hr 08/11/18 08/11/18 08/11/18 14:36 14:36 14:36 WBC 8.8 RBC 4.09 L Hgb 12.4 Hct 37.8 MCV 92.4 D MCH 30.2 MCHC 32.7 L RDW 14.3 Plt Count 239 MPV 7.7 Neut % (Auto) 47.8 L Lymph % (Auto) 44.1 H [place] % (Auto) 5.6 Eos % (Auto) 2.1 Baso % (Auto) 0.4 Neut # (Auto) 4.2 Lymph # (Auto) 3.9 [place] # (Auto) 0.5 Eos # (Auto) 0.2 Baso # (Auto) 0.0 PT 22.7 H INR 2.1 APTT 33 Sodium 137 Potassium 4.3 Chloride 104 Carbon Dioxide 20 L Anion Gap 17 BUN 23 H Creatinine 1.4 Est GFR ( Amer) 59 Est GFR (Non-Af Amer) 49 Random Glucose 176 H D Calcium 8.5 L Total Bilirubin 0.3 AST 100 H D ALT 81 H D Alkaline Phosphatase 78 Total Creatine Kinase 240 H CK-MB (Mass) 1.57 Troponin I 0.0400 Total Protein 7.0 Albumin 4.0 Globulin 3.0 Albumin/Globulin Ratio 1.3 Triglycerides 288 H Cholesterol 167 LDL Cholesterol Direct 87 HDL Cholesterol 37 Blood Type Antibody Screen 08/11/18 14:36 WBC RBC Hgb Hct MCV MCH MCHC RDW Plt Count MPV Neut % (Auto) Lymph % (Auto) [place] % (Auto) Eos % (Auto) Baso % (Auto) Neut # (Auto) Lymph # (Auto) [place] # (Auto) Eos # (Auto) Baso # (Auto) PT INR APTT Sodium Potassium Chloride Carbon Dioxide Anion Gap BUN Creatinine Est GFR ( Amer) Est GFR (Non-Af Amer) Random Glucose Calcium Total Bilirubin AST ALT Alkaline Phosphatase Total Creatine Kinase CK-MB (Mass) Troponin I Total Protein Albumin Globulin Albumin/Globulin Ratio Triglycerides Cholesterol LDL Cholesterol Direct HDL Cholesterol Blood Type O POSITIVE Antibody Screen Negative Assessment & Plan - Assessment and Plan (Free Text) Assessment: Patient is an 83 yo male w/ PMH of Alzheimer's disease, CAD, atrial fibrillation, hypertension, hypercholesterolemia, dementia admitted to ICU s/p intubated and cardiac arrest in field. CT head pending, initial trop negative. Dr. Dupont reviewed EKG and stated no code heart at this time. Neuro Intubated, No sedation meds CT head shows remote vs chronic infarction in frontal lobe Pulm Intubated and on ventilator with ET tube in place CV Cardiac Arrest in field- rosc achieved EKG in field showed ST elevation, EKG in ED showed Afib w/ diffuse ST segment changes Heparin drip initiated as per cardio emily), Lopressor bid g tube; Further management of cardiac as per cardio Code Freeze initiated Echo pending JUAN LUIS panel pending GI Protonix; no active issues Endo Q6H accuchecks; hypoglycemic protocol; ISS Renal no active issues Villanueva for strict Is/Os Metabolic acidosis; Elevated lactate ID no active issues DVT ppx: SCDs, heparin GI ppx: protonix <Margarito Ocampo S - Last Filed: 08/11/18 18:43> Meds - Medications Medications: Current Medications Dextrose (Dextrose 50% Inj) 0 ml IV STAT PRN; Protocol PRN Reason: Hypoglycemia Protocol Dextrose (Glutose 15) 0 gm PO ONCE PRN; Protocol PRN Reason: Hypoglycemia Protocol Glucagon (Glucagen Diagnostic Kit) 0 mg IM STAT PRN; Protocol PRN Reason: Hypoglycemia Protocol Dextrose (Dextrose 5% In Water 1000 Ml) 1,000 mls @ 0 mls/hr IV .Q0M PRN; Protocol PRN Reason: Hypoglycemia Protocol Heparin Sodium/Sodium Chloride (Heparin 87291 Units/250ml 1/2 Normal Saline) 25 ,000 units in 250 mls @ 8.165 mls/hr IV .Q24H PRN; Protocol PRN Reason: ADJUST RATE PER PROTOCOL Insulin Human Regular (Novolin R) 0 unit SC ACHS JESSE; Protocol Last Admin: 08/11/18 17:30 Dose: 1 unit Metoprolol Tartrate (Lopressor) 50 mg PO BID JESSE Pantoprazole Sodium (Protonix Inj) 40 mg IVP DAILY [facility] TO [facility] Last Admin: 08/11/18 15:57 Dose: 40 mg Results - Vital Signs Recent Vital Signs: Last Vital Signs Temp Pulse 97 H 08/11/18 16:14 Resp 12 08/11/18 16:14 BP 127/84 08/11/18 16:14 Pulse Ox 100 08/11/18 16:14 - Labs Result Diagrams: 08/11/18 14:36 08/11/18 14:36 Labs: Laboratory Results - last 24 hr 08/11/18 08/11/18 08/11/18 14:25 14:36 14:36 WBC 8.8 RBC 4.09 L Hgb 12.4 Hct 37.8 MCV 92.4 D MCH 30.2 MCHC 32.7 L RDW 14.3 Plt Count 239 MPV 7.7 Neut % (Auto) 47.8 L Lymph % (Auto) 44.1 H [place] % (Auto) 5.6 Eos % (Auto) 2.1 Baso % (Auto) 0.4 Neut # (Auto) 4.2 Lymph # (Auto) 3.9 [place] # (Auto) 0.5 Eos # (Auto) 0.2 Baso # (Auto) 0.0 PT INR APTT Puncture Site Lf pCO2 41 pO2 486 H HCO3 19.5 L ABG pH 7.28 L ABG Total CO2 20.6 L ABG O2 Saturation 100.2 H ABG Base Excess -7.1 L Danny Test Na ABG Potassium A-a O2 Difference 176.0 Respiratory Index 0.4 Glucose Lactate Vent Mode Ac Mechanical Rate 12 FiO2 100 Tidal Volume 500 PEEP 5 Sodium 137 Potassium 4.3 Chloride 104 Carbon Dioxide 20 L Anion Gap 17 BUN 23 H Creatinine 1.4 Est GFR ( Amer) 59 Est GFR (Non-Af Amer) 49 POC Glucose (mg/dL) Random Glucose 176 H D Calcium 8.5 L Total Bilirubin 0.3 AST 100 H D ALT 81 H D Alkaline Phosphatase 78 Total Creatine Kinase 240 H CK-MB (Mass) 1.57 Troponin I 0.0400 Total Protein 7.0 Albumin 4.0 Globulin 3.0 Albumin/Globulin Ratio 1.3 Triglycerides 288 H Cholesterol 167 LDL Cholesterol Direct 87 HDL Cholesterol 37 Arterial Blood Potassium Blood Type Antibody Screen 08/11/18 08/11/18 08/11/18 14:36 14:36 14:39 WBC RBC Hgb Hct MCV MCH MCHC RDW Plt Count MPV Neut % (Auto) Lymph % (Auto) [place] % (Auto) Eos % (Auto) Baso % (Auto) Neut # (Auto) Lymph # (Auto) [place] # (Auto) Eos # (Auto) Baso # (Auto) PT 22.7 H INR 2.1 APTT 33 Puncture Site Lf pCO2 40 pO2 426 H HCO3 18.2 L ABG pH 7.26 L ABG Total CO2 19.1 L ABG O2 Saturation 100.0 H ABG Base Excess -8.7 L Danny Test Na ABG Potassium 3.4 L A-a O2 Difference Respiratory Index Glucose 159 H Lactate 4.8 H* Vent Mode Mechanical Rate FiO2 Tidal Volume PEEP Sodium 136.0 Potassium Chloride 105.0 Carbon Dioxide Anion Gap BUN Creatinine Est GFR ( Amer) Est GFR (Non-Af Amer) POC Glucose (mg/dL) Random Glucose Calcium Total Bilirubin AST ALT Alkaline Phosphatase Total Creatine Kinase CK-MB (Mass) Troponin I Total Protein Albumin Globulin Albumin/Globulin Ratio Triglycerides Cholesterol LDL Cholesterol Direct HDL Cholesterol Arterial Blood Potassium 3.4 L Blood Type O POSITIVE Antibody Screen Negative 08/11/18 08/11/18 15:41 17:04 WBC RBC Hgb Hct MCV MCH MCHC RDW Plt Count MPV Neut % (Auto) Lymph % (Auto) [place] % (Auto) Eos % (Auto) Baso % (Auto) Neut # (Auto) Lymph # (Auto) [place] # (Auto) Eos # (Auto) Baso # (Auto) PT INR APTT Puncture Site pCO2 pO2 HCO3 ABG pH ABG Total CO2 ABG O2 Saturation ABG Base Excess Danny Test ABG Potassium A-a O2 Difference Respiratory Index Glucose Lactate Vent Mode Mechanical Rate FiO2 Tidal Volume PEEP Sodium Potassium Chloride Carbon Dioxide Anion Gap BUN Creatinine Est GFR ( Amer) Est GFR (Non-Af Amer) POC Glucose (mg/dL) 114 H 161 H Random Glucose Calcium Total Bilirubin AST ALT Alkaline Phosphatase Total Creatine Kinase CK-MB (Mass) Troponin I Total Protein Albumin Globulin Albumin/Globulin Ratio Triglycerides Cholesterol LDL Cholesterol Direct HDL Cholesterol Arterial Blood Potassium Blood Type Antibody Screen Attending/Attestation - Attestation I have personally seen and examined this patient.: Yes I have fully participated in the care of the patient.: Yes I have reviewed all pertinent clinical information: Yes Notes (Text): 08/11/18 18:42 Patient seen and examined 83-year-old male admitted with cardiac arrest, intubated on ventilatory support, no response to any painful stimuli Therapeutic hypothermia IV heparin Beta blockers Follow-up chest x-ray CAT scan of the head noted Cardiology workup
[2018-08-11] MEDS ORDERED: Glucagon Recombinant 1 mg Inj IM PRN (15:29)
[2018-08-11] MEDS ORDERED: Dextrose 50% SYRINGE Inj (50 ml) IV PRN (15:29)
--- NOTE | 2018-08-11 15:40 | CT ---
Date of service: 08/11/2018 PROCEDURE: CT HEAD WITHOUT CONTRAST. HISTORY: post arrest altered mental status COMPARISON: None available. TECHNIQUE: Axial computed tomography images were obtained through the head/brain without intravenous contrast. Radiation dose: Total exam DLP = 1244.22 mGy-cm. This CT exam was performed using one or more of the following dose reduction techniques: Automated exposure control, adjustment of the mA and/or kV according to patient size, and/or use of iterative reconstruction technique. FINDINGS: HEMORRHAGE: No intracranial hemorrhage. BRAIN: Diffuse atrophy with prominence of the ventricles and sulci noted. No mass effect or edema. Dense intracranial atherosclerosis. Bilateral basal ganglia calcifications. Small hypodensity involving the right frontal vertex appears consistent with chronic or remote infarction. Scattered periventricular and subcortical white matter hypodensities, which are nonspecific, but often seen with chronic microvascular ischemic disease. Please note that MRI with diffusion imaging is more sensitive in the detection of acute ischemic event. VENTRICLES: No hydrocephalus. CALVARIUM: Unremarkable. PARANASAL SINUSES: Unremarkable as visualized. No significant inflammatory changes. MASTOID AIR CELLS: Fluid noted within the right mastoid air cells. The left mastoid air cells appear clear. OTHER FINDINGS: Bilateral partial opacification of the external auditory canals, likely cerumen. IMPRESSION: Small hypodensity involving the right frontal vertex appears consistent with chronic or remote infarction. Moderate nonspecific white matter changes. Fluid within the right mastoid air cells; correlate clinically for mastoiditis. Generalized atrophy. Additional incidental findings as above.
[2018-08-11 15:44] LABS: ARTERIAL BLOOD GAS HCO3 19.5 mmol/L (21-28); ARTERIAL BLOOD GAS PCO2 41 mm/Hg (35-45); ARTERIAL BLOOD GAS PH 7.28 (7.35-7.45); ARTERIAL BLOOD GAS PO2 486 mm/Hg (80-100); ARTERIAL BLOOD GAS TCO2 20.6 mmol/L (22-28)
[2018-08-11 15:45] LABS: ARTERIAL BLOOD GAS FIO2 100 %; ARTERIAL BLOOD GAS O2 SAT 100.2 % (95-98)
[2018-08-11 15:48] LABS: ARTERIAL BLOOD GAS HCO3 18.2 mmol/L (21-28); ARTERIAL BLOOD GAS PCO2 40 mm/Hg (35-45); ARTERIAL BLOOD GAS PH 7.26 (7.35-7.45); ARTERIAL BLOOD GAS PO2 426 mm/Hg (80-100); ARTERIAL BLOOD GAS TCO2 19.1 mmol/L (22-28)
[2018-08-11] MEDS ORDERED: Sodium Chloride 0.9% 1,000 ML IV ONE (15:49)
--- NOTE | 2018-08-11 17:13 | CP.PCM.PN ---
Subjective - Date & Time of Evaluation Date of Evaluation: 08/11/18 Time of Evaluation: 17:11 - Subjective Subjective: Code Freeze Called at 5:07pm on 08/11/18, Started at 5:40pm Vital signs: HR 113 bpm BP 141/85, RR 26, O2 sat 100% Vent: AC rate 12, TV 500, PEEP 5, FiO2 70% Objective - Vital Signs/Intake and Output Vital Signs (last 24 hours): Temp Pulse Resp BP Pulse Ox 97 H 12 127/84 100 08/11/18 16:14 08/11/18 16:14 08/11/18 16:14 08/11/18 16:14 - Medications Medications: Current Medications Dextrose (Dextrose 50% Inj) 0 ml IV STAT PRN; Protocol PRN Reason: Hypoglycemia Protocol Dextrose (Glutose 15) 0 gm PO ONCE PRN; Protocol PRN Reason: Hypoglycemia Protocol Glucagon (Glucagen Diagnostic Kit) 0 mg IM STAT PRN; Protocol PRN Reason: Hypoglycemia Protocol Heparin Sodium (Porcine) (Heparin) 5,000 units SC Q8 [facility] Last Admin: 08/11/18 15:56 Dose: 5,000 units Dextrose (Dextrose 5% In Water 1000 Ml) 1,000 mls @ 0 mls/hr IV .Q0M PRN; Protocol PRN Reason: Hypoglycemia Protocol Insulin Human Regular (Novolin R) 0 unit SC ACHS [facility]; Protocol Pantoprazole Sodium (Protonix Inj) 40 mg IVP DAILY [facility] Last Admin: 08/11/18 15:57 Dose: 40 mg - Labs Labs: 08/11/18 14:36 08/11/18 14:36 PT 22.7 SECONDS (9.7-12.2) H 08/11/18 14:36 INR 2.1 08/11/18 14:36 APTT 33 SECONDS (21-34) 08/11/18 14:36
[2018-08-11] MEDS: (Novolin R) Insulin Human Regular 100 units/ml vial SC SCH ×2 (17:30→22:00)
[2018-08-11] MEDS ORDERED: Propofol 10 mg/ml Inj (20 ML) ONE (18:06)
[2018-08-11] MEDS ORDERED: Propofol 10 mg/ml Inj (20 ML) IV ONE ×2 (18:15→18:19)
--- NOTE | 2018-08-11 18:50 | PCM.PROC ---
Procedures Attestation:: I certify that I have explained the specified Operation(s) or Procedure(s), risks, benefits and reasonable alternatives to the Patient and/or other person responsible. The opportunity was given to ask questions and all questions answered - Central Line Placement Left Internal Jugular Triple Lumen Catheter Aseptic technique was employed throughout the procedure: Hand Hygiene done prior to procedure, Full sterile barriers (mask, hair cover, sterile gown, sterile g loves), Full body sterile drape, Chloraprep Antiseptic: 30 second prep for IJ or SC sites CVP Time Out Performed: Yes Pt. Placed on Pulse Ox Monitor: Yes Central Line Prep: Chlorhexidine-Alcohol Combination Local Anesthesia Used: Lidocaine 1% Amount of Anesthesia Used (mls): 2 (additional 3mL and then 5mL Propofol) Ultrasound Used for Placement: Yes Central Line Lumen Inserted: triple Central Line Length: 20 cm Post Procedure: Sutured in Place, Good Blood Return, All Ports Aspirated, Flushed, Capped, Sterile Dressing Applied Secured by: Suture Post procedure dressing: Clear vapor permeable, Chlorhexidine disc (Biopatch) Post Procedure X-Ray: Yes Patient Tolerated Procedure: Well Immediate Complications: None
[2018-08-11] MEDS ORDERED: Metoprolol 1 mg/ml Inj IVP ONE (19:00)
[2018-08-11 19:02] LABS: ABG ALLEN TEST UNABLE; ARTERIAL BLOOD GAS HCO3 16.3 mmol/L (21-28); ARTERIAL BLOOD GAS O2 SAT 99.3 % (95-98); ARTERIAL BLOOD GAS PCO2 39 mm/Hg (35-45); ARTERIAL BLOOD GAS PH 7.22 (7.35-7.45); ARTERIAL BLOOD GAS PO2 134 mm/Hg (80-100); ARTERIAL BLOOD GAS TCO2 17.2 mmol/L (22-28)
[2018-08-11] MEDS ORDERED: Metoprolol 1 mg/ml Inj ONE (19:06)
[2018-08-11 19:57] LABS: SQUAMOUS EPITHIAL 1 /hpf (0-5); URINE AMORPHOUS SEDIMENT MODERATE /ul (<OCC); URINE BACTERIA RARE (<OCC); URINE BILIRUBIN NEGATIVE (NEGATIVE); URINE BLOOD 2+ (NEGATIVE); URINE CLARITY Hazy (Clear); URINE COLOR Yellow (YELLOW); URINE GLUCOSE (UA) NORMAL (Normal); URINE LEUKOCYTE ESTERASE NEG Leu/uL (Negative); URINE PROTEIN 3+ mg/dL (NEGATIVE); URINE UROBILINOGEN NORMAL mg/dL (0.2-1.0)
[2018-08-11] MEDS: Propofol 10 mg/ml 1,000 MG/100 ML VIAL IV PRN (19:57)
[2018-08-11] MEDS: Heparin25000 units/250ml 1/2NS 25,000 UNITS/250 ML BAG IV PRN (20:09)
[2018-08-11] MEDS: Acetaminophen 650mg/20.3ml solution UD PO SCH (20:34)
[2018-08-11] MEDS: Midazolam 50 mg/10 ml 100 MG in Sodium Chloride 0.9% 80 ML IV SCH (21:00)
--- NOTE | 2018-08-11 21:20 | CP.PCM.HP ---
Past Patient History - Infectious Disease Hx of Infectious Diseases: C.diff - Past Medical History & Family History Past Medical History?: Yes - Past Social History Smoking Status: Former Smoker - CARDIAC Hx Atrial Fibrillation: Yes Hx Cardia Arrhythmia: (A FIB) Hx Congestive Heart Failure: Yes Hx Hypercholesterolemia: Yes Hx Hypertension: Yes - PULMONARY Hx Respiratory Disorders: No - NEUROLOGICAL Hx Alzheimer's Disease: Yes Hx Dementia: Yes - HEENT Hx HEENT Problems: No - RENAL Hx Chronic Kidney Disease: No - ENDOCRINE/METABOLIC Hx Hypothyroidism: Yes - HEMATOLOGICAL/ONCOLOGICAL Hx Blood Disorders: No - INTEGUMENTARY Hx Dermatological Problems: No - MUSCULOSKELETAL/RHEUMATOLOGICAL Hx Falls: Yes - GASTROINTESTINAL Hx Gastrointestinal Disorders: No - GENITOURINARY/GYNECOLOGICAL Hx Prostate Problems: Yes - PSYCHIATRIC Hx Substance Use: No - SURGICAL HISTORY Hx Carotid Endarterectomy: Yes (RIGHT) - ANESTHESIA Hx Anesthesia: Yes Hx Anesthesia Reactions: No Hx Malignant Hyperthermia: No Meds Allergies/Adverse Reactions: Allergies Allergy/AdvReac Type Severity Reaction Status Date / Time No Known Allergies Allergy Verified 08/11/18 14:21 Physical Exam - Constitutional Appears: Well - Head Exam Head Exam: ATRAUMATIC, NORMAL INSPECTION, NORMOCEPHALIC - Eye Exam Eye Exam: EOMI, Normal appearance, PERRL Pupil Exam: NORMAL ACCOMODATION, PERRL - ENT Exam ENT Exam: Mucous Membranes Moist, Normal Exam - Neck Exam Neck exam: Positive for: Normal Inspection - Respiratory Exam Respiratory Exam: Decreased Breath Sounds - Cardiovascular Exam Cardiovascular Exam: REGULAR RHYTHM, +S1, +S2 - GI/Abdominal Exam GI & Abdominal Exam: Diminished Bowel Sounds, Soft - Rectal Exam Rectal Exam: Deferred Results - Vital Signs Recent Vital Signs: Last Vital Signs Temp 97.5 F L 08/11/18 20:34 Pulse 95 H 08/11/18 16:30 Resp 12 08/11/18 16:14 BP 127/84 08/11/18 16:14 Pulse Ox 100 08/11/18 16:30 - Labs Result Diagrams: 08/11/18 14:36 08/11/18 14:36 Labs: Laboratory Results - last 24 hr 08/11/18 08/11/18 08/11/18 14:25 14:36 14:36 WBC 8.8 RBC 4.09 L Hgb 12.4 Hct 37.8 MCV 92.4 D MCH 30.2 MCHC 32.7 L RDW 14.3 Plt Count 239 MPV 7.7 Neut % (Auto) 47.8 L Lymph % (Auto) 44.1 H [place] % (Auto) 5.6 Eos % (Auto) 2.1 Baso % (Auto) 0.4 Neut # (Auto) 4.2 Lymph # (Auto) 3.9 [place] # (Auto) 0.5 Eos # (Auto) 0.2 Baso # (Auto) 0.0 PT INR APTT Puncture Site Lf pCO2 41 pO2 486 H HCO3 19.5 L ABG pH 7.28 L ABG Total CO2 20.6 L ABG O2 Saturation 100.2 H ABG Base Excess -7.1 L Danny Test Na ABG Potassium A-a O2 Difference 176.0 Respiratory Index 0.4 Glucose Lactate Vent Mode Ac Mechanical Rate 12 FiO2 100 Tidal Volume 500 PEEP 5 Sodium 137 Potassium 4.3 Chloride 104 Carbon Dioxide 20 L Anion Gap 17 BUN 23 H Creatinine 1.4 Est GFR ( Amer) 59 Est GFR (Non-Af Amer) 49 POC Glucose (mg/dL) Random Glucose 176 H D Calcium 8.5 L Total Bilirubin 0.3 AST 100 H D ALT 81 H D Alkaline Phosphatase 78 Total Creatine Kinase 240 H CK-MB (Mass) 1.57 Troponin I 0.0400 Total Protein 7.0 Albumin 4.0 Globulin 3.0 Albumin/Globulin Ratio 1.3 Triglycerides 288 H Cholesterol 167 LDL Cholesterol Direct 87 HDL Cholesterol 37 Arterial Blood Potassium Urine Color Urine Clarity Urine pH Ur Specific [place] Urine Protein Urine Glucose (UA) Urine Ketones Urine Blood Urine Nitrate Urine Bilirubin Urine Urobilinogen Ur Leukocyte Esterase Urine WBC (Auto) Urine RBC (Auto) Ur Squamous Epith Cells Amorphous Sediment Urine Bacteria Hyaline Casts Blood Type Antibody Screen 08/11/18 08/11/18 08/11/18 14:36 14:36 14:39 WBC RBC Hgb Hct MCV MCH MCHC RDW Plt Count MPV Neut % (Auto) Lymph % (Auto) [place] % (Auto) Eos % (Auto) Baso % (Auto) Neut # (Auto) Lymph # (Auto) [place] # (Auto) Eos # (Auto) Baso # (Auto) PT 22.7 H INR 2.1 APTT 33 Puncture Site Lf pCO2 40 pO2 426 H HCO3 18.2 L ABG pH 7.26 L ABG Total CO2 19.1 L ABG O2 Saturation 100.0 H ABG Base Excess -8.7 L Danny Test Na ABG Potassium 3.4 L A-a O2 Difference Respiratory Index Glucose 159 H Lactate 4.8 H* Vent Mode Mechanical Rate FiO2 Tidal Volume PEEP Sodium 136.0 Potassium Chloride 105.0 Carbon Dioxide Anion Gap BUN Creatinine Est GFR ( Amer) Est GFR (Non-Af Amer) POC Glucose (mg/dL) Random Glucose Calcium Total Bilirubin AST ALT Alkaline Phosphatase Total Creatine Kinase CK-MB (Mass) Troponin I Total Protein Albumin Globulin Albumin/Globulin Ratio Triglycerides Cholesterol LDL Cholesterol Direct HDL Cholesterol Arterial Blood Potassium 3.4 L Urine Color Urine Clarity Urine pH Ur Specific [place] Urine Protein Urine Glucose (UA) Urine Ketones Urine Blood Urine Nitrate Urine Bilirubin Urine Urobilinogen Ur Leukocyte Esterase Urine WBC (Auto) Urine RBC (Auto) Ur Squamous Epith Cells Amorphous Sediment Urine Bacteria Hyaline Casts Blood Type O POSITIVE Antibody Screen Negative 08/11/18 08/11/18 08/11/18 15:41 17:04 18:59 WBC RBC Hgb Hct MCV MCH MCHC RDW Plt Count MPV Neut % (Auto) Lymph % (Auto) [place] % (Auto) Eos % (Auto) Baso % (Auto) Neut # (Auto) Lymph # (Auto) [place] # (Auto) Eos # (Auto) Baso # (Auto) PT INR APTT Puncture Site Lr pCO2 39 pO2 134 H HCO3 16.3 L ABG pH 7.22 L ABG Total CO2 17.2 L ABG O2 Saturation 99.3 H ABG Base Excess -11.1 L Danny Test Unable ABG Potassium 3.7 A-a O2 Difference 316.0 Respiratory Index 2.4 Glucose 174 H Lactate 3.4 H Vent Mode Prvc Mechanical Rate 12 FiO2 70.0 Tidal Volume 500 PEEP 5 Sodium 142.0 Potassium Chloride 113.0 H Carbon Dioxide Anion Gap BUN Creatinine Est GFR ( Amer) Est GFR (Non-Af Amer) POC Glucose (mg/dL) 114 H 161 H Random Glucose Calcium Total Bilirubin AST ALT Alkaline Phosphatase Total Creatine Kinase CK-MB (Mass) Troponin I Total Protein Albumin Globulin Albumin/Globulin Ratio Triglycerides Cholesterol LDL Cholesterol Direct HDL Cholesterol Arterial Blood Potassium 3.7 Urine Color Urine Clarity Urine pH Ur Specific [place] Urine Protein Urine Glucose (UA) Urine Ketones Urine Blood Urine Nitrate Urine Bilirubin Urine Urobilinogen Ur Leukocyte Esterase Urine WBC (Auto) Urine RBC (Auto) Ur Squamous Epith Cells Amorphous Sediment Urine Bacteria Hyaline Casts Blood Type Antibody Screen 08/11/18 19:26 WBC RBC Hgb Hct MCV MCH MCHC RDW Plt Count MPV Neut % (Auto) Lymph % (Auto) [place] % (Auto) Eos % (Auto) Baso % (Auto) Neut # (Auto) Lymph # (Auto) [place] # (Auto) Eos # (Auto) Baso # (Auto) PT INR APTT Puncture Site pCO2 pO2 HCO3 ABG pH ABG Total CO2 ABG O2 Saturation ABG Base Excess Danny Test ABG Potassium A-a O2 Difference Respiratory Index Glucose Lactate Vent Mode Mechanical Rate FiO2 Tidal Volume PEEP Sodium Potassium Chloride Carbon Dioxide Anion Gap BUN Creatinine Est GFR ( Amer) Est GFR (Non-Af Amer) POC Glucose (mg/dL) Random Glucose Calcium Total Bilirubin AST ALT Alkaline Phosphatase Total Creatine Kinase CK-MB (Mass) Troponin I Total Protein Albumin Globulin Albumin/Globulin Ratio Triglycerides Cholesterol LDL Cholesterol Direct HDL Cholesterol Arterial Blood Potassium Urine Color Yellow Urine Clarity Hazy Urine pH 5.0 Ur Specific [place] 1.019 Urine Protein 3+ H Urine Glucose (UA) Normal Urine Ketones Negative Urine Blood 2+ H Urine Nitrate Negative Urine Bilirubin Negative Urine Urobilinogen Normal Ur Leukocyte Esterase Neg Urine WBC (Auto) 8 H Urine RBC (Auto) 6 H Ur Squamous Epith Cells 1 Amorphous Sediment Moderate H Urine Bacteria Rare Hyaline Casts 6-10 H Blood Type Antibody Screen
[2018-08-11 22:55] LABS: BASO % 0.3 % (0.0-2.0); HEMOGLOBIN 11.9 g/dL (12.0-18.0); LYMPH # 0.6 K/uL (1.0-4.3); MEAN CELL VOLUME 91.3 fL (80.0-94.0); MEAN CORPUSCULAR HEMOGLOBIN 30.2 pg (27.0-31.0); MEAN CORPUSCULAR HGB CONC 33.1 g/dL (33.0-37.0); MEAN PLATELET VOLUME 7.6 fL (7.2-11.7); MONO # 0.6 K/uL (0.0-0.8); MONO % 4.1 % (0.0-10.0); NEUT # 13.6 K/uL (1.8-7.0); NEUT % 91.6 % (50.0-75.0); PLATELET COUNT 222 K/uL (130-400); RBC 3.94 Mil/uL (4.40-5.90); WHITE BLOOD COUNT 14.8 K/uL (4.8-10.8)
[2018-08-11 23:16] LABS: ALB/GLOB RATIO 1.1 (1.0-2.1); ALBUMIN 3.4 g/dL (3.5-5.0); ALT/SGPT 73 U/L (21-72); AST/SGOT 110 U/L (17-59); BLOOD UREA NITROGEN 25 mg/dL (9-20); CALCIUM 7.7 mg/dl (8.6-10.4); GFR NON-AFRICAN AMERICAN 58
[2018-08-12] MEDS: Sodium Chloride 0.9% 1,000 ML IV SCH ×4 (01:00→21:09)
[2018-08-12 02:04] LABS: BANDS 4 % (0-2); LYMPHOCYTE 4 % (20-40); MONOCYTE 4 % (0-10); NEUTROPHIL 88 % (50-75); PLATELET ESTIMATE NORMAL (NORMAL); TOTAL CELLS COUNTED 100
[2018-08-12] MEDS: Propofol 10 mg/ml 1,000 MG/100 ML VIAL IV PRN ×5 (02:05→22:32)
[2018-08-12] MEDS: Acetaminophen 650mg/20.3ml solution UD PO SCH ×2 (02:51→12:35)
[2018-08-12 03:15] LABS: INR 1.6; PROTHROMBIN TIME 17.8 SECONDS (9.7-12.2)
[2018-08-12] MEDS ORDERED: Sodium Chloride 0.9% 500 ML IV ONE (03:41)
[2018-08-12 06:42] LABS: BASO % 0.1 % (0.0-2.0); LYMPH # 1.4 K/uL (1.0-4.3); LYMPH % 10.5 % (20.0-40.0); MEAN CELL VOLUME 92.4 fL (80.0-94.0); MEAN CORPUSCULAR HEMOGLOBIN 30.7 pg (27.0-31.0); MEAN CORPUSCULAR HGB CONC 33.2 g/dL (33.0-37.0); MEAN PLATELET VOLUME 8.7 fL (7.2-11.7); NEUT # 10.5 K/uL (1.8-7.0); NEUT % 81.4 % (50.0-75.0); RBC 3.6 Mil/uL (4.40-5.90); RED CELL DISTRIBUTION WIDTH 14.5 % (11.5-14.5); WHITE BLOOD COUNT 12.9 K/uL (4.8-10.8)
[2018-08-12 06:54] LABS: ALT/SGPT 63 U/L (21-72); AST/SGOT 115 U/L (17-59); BLOOD UREA NITROGEN 27 mg/dL (9-20); CALCIUM 7.1 mg/dl (8.6-10.4); GFR NON-AFRICAN AMERICAN 58
[2018-08-12] MEDS: (Novolin R) Insulin Human Regular 100 units/ml vial SC SCH ×4 (07:30→21:09)
--- NOTE | 2018-08-12 07:51 | CP.CCUPN ---
<Bhargav Amezquita - Last Filed: 08/12/18 11:50> CCU Subjective - Physician Review Events Since Last Encounter (Free Text): 08/12/18 07:45 s/p intubated on 08/12/18. Subjective (Free Text): 08/12/18 07:51 PGY-1 Critical Care Progress Note for Dr. Santiago's service Patient seen and examined at bedside. Patient is sedated and non communicative currently. Limited ROS. Critical Care Time Spent (in minutes): 35 CCU Objective - Vital Signs / Intake & Output Vital Signs (Last 4 hours): Vital Signs Temp BP 08/12/18 06:05 100/60 08/12/18 05:00 32.6 F L 08/12/18 04:00 33.6 F L Intake and Output (Last 8hrs): Intake & Output 08/11/18 08/12/18 08/12/18 22:59 06:59 14:59 Intake Total 65 122 Output Total 125 250 Balance -60 -128 Intake: IV 65 122 Oral 0 0 Output: Urine 125 250 Urethral (Villanueva) 125 250 Other: Voiding Method Indwelling Catheter # Bowel Movements 1 - Physical Exam Head: Positive for: Other (brusing with ecchymosis of left eye) Mouth: Positive for: Moist Mucous Membranes, Other (ET tube in place) Respiratory/Chest: Positive for: Good Air Exchange Cardiovascular: Positive for: Normal S1, S2, Irregular Rhythm. Negative for: Regular Rate and Rhythm, Tachycardic Abdomen: Negative for: Tenderness, Distention Upper Extremity: Positive for: Normal Inspection. 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 Negative for: Edema Neurological: Negative for: GCS=15 Psychiatric: Negative for: Alert, Oriented x 3 - Medications Active Medications: Active Medications Generic Name Dose Route Start Last Admin Trade Name Freq PRN Reason Stop Dose Admin Acetaminophen 975 mg 08/11/18 20:30 08/12/18 02:51 Tylenol 650mg/20.3ml Solution Ud PO 08/12/18 14:31 Not Given Q6H JESSE Dextrose 0 ml 08/11/18 15:29 Dextrose 50% Inj IV STAT PRN Hypoglycemia Protocol Protocol Dextrose 0 gm 08/11/18 15:29 Glutose 15 PO ONCE PRN Hypoglycemia Protocol Protocol Glucagon 0 mg 08/11/18 15:29 Glucagen Diagnostic Kit IM STAT PRN Hypoglycemia Protocol Protocol Dextrose 1,000 mls @ 0 mls/hr 08/11/18 15:29 Dextrose 5% In Water 1000 Ml IV .Q0M PRN Hypoglycemia Protocol Protocol Per Protocol Heparin Sodium/Sodium Chloride 25,000 units in 250 mls @ 8.165 mls/hr 08/11/18 17:33 08/11/18 20:09 Heparin 64699 Units/250ml 1/2 Normal Saline IV 12 units/kg/hr .Q24H PRN 8.165 mls/hr ADJUST RATE PER PROTOCOL Administration Protocol 12 UNITS/KG/HR Propofol 1,000 mg in 100 mls @ 2.041 mls/hr 08/11/18 19:35 08/12/18 06:15 Diprivan IV 20.08 mcg/kg/min .Q24H PRN 8.2 mls/hr TITRATE PER MD ORDER Titration Protocol 5 MCG/KG/MIN Midazolam HCl 100 mg/ Sodium 100 mls @ 1.36 mls/hr 08/11/18 20:30 08/12/18 02:00 Chloride IV 0 mg/kg/hr .Q24H JESSE 0 mls/hr Titration Protocol 0.02 MG/KG/HR Sodium Chloride 1,000 mls @ 150 mls/hr 08/12/18 01:00 08/12/18 01:00 Sodium Chloride 0.9% IV 150 mls/hr .Q6H40M JESSE Administration Insulin Human Regular 0 unit 08/11/18 16:30 08/11/18 22:00 Novolin R SC Not Given ACHS JESSE Protocol Metoprolol Tartrate 50 mg 08/11/18 18:00 Lopressor PO BID JESSE Pantoprazole Sodium 40 mg 08/11/18 15:30 08/11/18 15:57 Protonix Inj IVP 40 mg DAILY JESSE Administration - Patient Studies Lab Studies: Lab Studies 08/12/18 08/12/18 08/12/18 Range/Units 07:03 06:34 06:29 WBC (4.8-10.8) K/uL RBC (4.40-5.90) Mil/uL Hgb (12.0-18.0) g/dL Hct (35.0-51.0) % MCV (80.0-94.0) fL MCH (27.0-31.0) pg MCHC (33.0-37.0) g/dL RDW (11.5-14.5) % Plt Count (130-400) K/uL MPV (7.2-11.7) fL Neut % (Auto) (50.0-75.0) % Lymph % (Auto) (20.0-40.0) % [place] % (Auto) (0.0-10.0) % Eos % (Auto) (0.0-4.0) % Baso % (Auto) (0.0-2.0) % Neut # (Auto) (1.8-7.0) K/uL Lymph # (Auto) (1.0-4.3) K/uL [place] # (Auto) (0.0-0.8) K/uL Eos # (Auto) (0.0-0.7) K/uL Baso # (Auto) (0.0-0.2) K/uL Neutrophils % (Manual) (50-75) % Band Neutrophils % (0-2) % Lymphocytes % (Manual) (20-40) % Monocytes % (Manual) (0-10) % Platelet Estimate (NORMAL) PT (9.7-12.2) SECONDS INR APTT (21-34) SECONDS Puncture Site pCO2 (35-45) mm/Hg pO2 (80-100) mm/Hg HCO3 (21-28) mmol/L ABG pH (7.35-7.45) ABG Total CO2 (22-28) mmol/L ABG O2 Saturation (95-98) % ABG Base Excess (-2.0-3.0) mmol/L Danny Test ABG Potassium (3.6-5.2) mmol/L A-a O2 Difference mm/Hg Respiratory Index Glucose (75-110) mg/dl Lactate (0.7-2.1) mmol/L Vent Mode Mechanical Rate FiO2 % Tidal Volume PEEP Sodium 137 (132-148) mmol/L Potassium 5.2 (3.6-5.2) mmol/L Chloride 110 H (98-107) mmol/L Carbon Dioxide 19 L (22-30) mmol/L Anion Gap 12 (10-20) BUN 27 H (9-20) mg/dL Creatinine 1.2 (0.8-1.5) mg/dL Est GFR ( Amer) > 60 Est GFR (Non-Af Amer) 58 POC Glucose (mg/dL) 148 H 145 H (65-110) mg/dL Random Glucose 125 H D (75-110) mg/dL Lactic Acid (0.7-2.1) mmol/L Calcium 7.1 L (8.6-10.4) mg/dl Phosphorus 4.2 (2.5-4.5) mg/dL Magnesium 1.9 (1.6-2.3) mg/dL Total Bilirubin 0.4 (0.2-1.3) mg/dL AST 115 H (17-59) U/L ALT 63 (21-72) U/L Alkaline Phosphatase 52 (38-126) U/L Total Creatine Kinase (55-170) U/L CK-MB (Mass) (0.0-3.38) ng/mL Troponin I (0.00-0.120) ng/mL Total Protein 5.9 L (6.3-8.3) g/dL Albumin 3.0 L (3.5-5.0) g/dL Globulin 2.9 (2.2-3.9) gm/dL Albumin/Globulin Ratio 1.0 (1.0-2.1) Triglycerides (0-149) mg/dL Cholesterol (0-199) mg/dL LDL Cholesterol Direct (0-129) mg/dL HDL Cholesterol (30-70) mg/dL Arterial Blood Potassium (3.6-5.2) mmol/L Urine Color (YELLOW) Urine Clarity (Clear) Urine pH (5.0-8.0) Ur Specific [place] (1.003-1.030) Urine Protein (NEGATIVE) mg/dL Urine Glucose (UA) (Normal) mg/dL Urine Ketones (NEGATIVE) mg/dL Urine Blood (NEGATIVE) Urine Nitrate (NEGATIVE) Urine Bilirubin (NEGATIVE) Urine Urobilinogen (0.2-1.0) mg/dL Ur Leukocyte Esterase (Negative) Flroencio/uL Urine WBC (Auto) (0-5) /hpf Urine RBC (Auto) (0-3) /hpf Ur Squamous Epith Cells (0-5) /hpf Amorphous Sediment (<OCC) /ul Urine Bacteria (<OCC) Hyaline Casts (0-2) /lpf Blood Type Antibody Screen 08/12/18 08/12/18 08/12/18 Range/Units 06:29 04:33 04:01 WBC 12.9 H (4.8-10.8) K/uL RBC 3.60 L (4.40-5.90) Mil/uL Hgb 11.0 L (12.0-18.0) g/dL Hct 33.3 L (35.0-51.0) % MCV 92.4 (80.0-94.0) fL MCH 30.7 (27.0-31.0) pg MCHC 33.2 (33.0-37.0) g/dL RDW 14.5 (11.5-14.5) % Plt Count 197 (130-400) K/uL MPV 8.7 (7.2-11.7) fL Neut % (Auto) 81.4 H (50.0-75.0) % Lymph % (Auto) 10.5 L (20.0-40.0) % [place] % (Auto) 8.0 (0.0-10.0) % Eos % (Auto) 0.0 (0.0-4.0) % Baso % (Auto) 0.1 (0.0-2.0) % Neut # (Auto) 10.5 H (1.8-7.0) K/uL Lymph # (Auto) 1.4 (1.0-4.3) K/uL [place] # (Auto) 1.0 H (0.0-0.8) K/uL Eos # (Auto) 0.0 (0.0-0.7) K/uL Baso # (Auto) 0.0 (0.0-0.2) K/uL Neutrophils % (Manual) (50-75) % Band Neutrophils % (0-2) % Lymphocytes % (Manual) (20-40) % Monocytes % (Manual) (0-10) % Platelet Estimate (NORMAL) PT (9.7-12.2) SECONDS INR APTT (21-34) SECONDS Puncture Site pCO2 (35-45) mm/Hg pO2 (80-100) mm/Hg HCO3 (21-28) mmol/L ABG pH (7.35-7.45) ABG Total CO2 (22-28) mmol/L ABG O2 Saturation (95-98) % ABG Base Excess (-2.0-3.0) mmol/L Danny Test ABG Potassium (3.6-5.2) mmol/L A-a O2 Difference mm/Hg Respiratory Index Glucose (75-110) mg/dl Lactate (0.7-2.1) mmol/L Vent Mode Mechanical Rate FiO2 % Tidal Volume PEEP Sodium (132-148) mmol/L Potassium (3.6-5.2) mmol/L Chloride (98-107) mmol/L Carbon Dioxide (22-30) mmol/L Anion Gap (10-20) BUN (9-20) mg/dL Creatinine (0.8-1.5) mg/dL Est GFR ( Amer) Est GFR (Non-Af Amer) POC Glucose (mg/dL) 152 H 183 H (65-110) mg/dL Random Glucose (75-110) mg/dL Lactic Acid (0.7-2.1) mmol/L Calcium (8.6-10.4) mg/dl Phosphorus (2.5-4.5) mg/dL Magnesium (1.6-2.3) mg/dL Total Bilirubin (0.2-1.3) mg/dL AST (17-59) U/L ALT (21-72) U/L Alkaline Phosphatase (38-126) U/L Total Creatine Kinase (55-170) U/L CK-MB (Mass) (0.0-3.38) ng/mL Troponin I (0.00-0.120) ng/mL Total Protein (6.3-8.3) g/dL Albumin (3.5-5.0) g/dL Globulin (2.2-3.9) gm/dL Albumin/Globulin Ratio (1.0-2.1) Triglycerides (0-149) mg/dL Cholesterol (0-199) mg/dL LDL Cholesterol Direct (0-129) mg/dL HDL Cholesterol (30-70) mg/dL Arterial Blood Potassium (3.6-5.2) mmol/L Urine Color (YELLOW) Urine Clarity (Clear) Urine pH (5.0-8.0) Ur Specific [place] (1.003-1.030) Urine Protein (NEGATIVE) mg/dL Urine Glucose (UA) (Normal) mg/dL Urine Ketones (NEGATIVE) mg/dL Urine Blood (NEGATIVE) Urine Nitrate (NEGATIVE) Urine Bilirubin (NEGATIVE) Urine Urobilinogen (0.2-1.0) mg/dL Ur Leukocyte Esterase (Negative) Florencio/uL Urine WBC (Auto) (0-5) /hpf Urine RBC (Auto) (0-3) /hpf Ur Squamous Epith Cells (0-5) /hpf Amorphous Sediment (<OCC) /ul Urine Bacteria (<OCC) Hyaline Casts (0-2) /lpf Blood Type Antibody Screen 08/12/18 08/12/18 08/12/18 Range/Units 03:17 02:52 02:31 WBC (4.8-10.8) K/uL RBC (4.40-5.90) Mil/uL Hgb (12.0-18.0) g/dL Hct (35.0-51.0) % MCV (80.0-94.0) fL MCH (27.0-31.0) pg MCHC (33.0-37.0) g/dL RDW (11.5-14.5) % Plt Count (130-400) K/uL MPV (7.2-11.7) fL Neut % (Auto) (50.0-75.0) % Lymph % (Auto) (20.0-40.0) % [place] % (Auto) (0.0-10.0) % Eos % (Auto) (0.0-4.0) % Baso % (Auto) (0.0-2.0) % Neut # (Auto) (1.8-7.0) K/uL Lymph # (Auto) (1.0-4.3) K/uL [place] # (Auto) (0.0-0.8) K/uL Eos # (Auto) (0.0-0.7) K/uL Baso # (Auto) (0.0-0.2) K/uL Neutrophils % (Manual) (50-75) % Band Neutrophils % (0-2) % Lymphocytes % (Manual) (20-40) % Monocytes % (Manual) (0-10) % Platelet Estimate (NORMAL) PT 17.8 H (9.7-12.2) SECONDS INR 1.6 D APTT 84 H D (21-34) SECONDS Puncture Site pCO2 (35-45) mm/Hg pO2 (80-100) mm/Hg HCO3 (21-28) mmol/L ABG pH (7.35-7.45) ABG Total CO2 (22-28) mmol/L ABG O2 Saturation (95-98) % ABG Base Excess (-2.0-3.0) mmol/L Danny Test ABG Potassium (3.6-5.2) mmol/L A-a O2 Difference mm/Hg Respiratory Index Glucose (75-110) mg/dl Lactate (0.7-2.1) mmol/L Vent Mode Mechanical Rate FiO2 % Tidal Volume PEEP Sodium (132-148) mmol/L Potassium (3.6-5.2) mmol/L Chloride (98-107) mmol/L Carbon Dioxide (22-30) mmol/L Anion Gap (10-20) BUN (9-20) mg/dL Creatinine (0.8-1.5) mg/dL Est GFR ( Amer) Est GFR (Non-Af Amer) POC Glucose (mg/dL) 176 H 190 H (65-110) mg/dL Random Glucose (75-110) mg/dL Lactic Acid (0.7-2.1) mmol/L Calcium (8.6-10.4) mg/dl Phosphorus (2.5-4.5) mg/dL Magnesium (1.6-2.3) mg/dL Total Bilirubin (0.2-1.3) mg/dL AST (17-59) U/L ALT (21-72) U/L Alkaline Phosphatase (38-126) U/L Total Creatine Kinase (55-170) U/L CK-MB (Mass) (0.0-3.38) ng/mL Troponin I (0.00-0.120) ng/mL Total Protein (6.3-8.3) g/dL Albumin (3.5-5.0) g/dL Globulin (2.2-3.9) gm/dL Albumin/Globulin Ratio (1.0-2.1) Triglycerides (0-149) mg/dL Cholesterol (0-199) mg/dL LDL Cholesterol Direct (0-129) mg/dL HDL Cholesterol (30-70) mg/dL Arterial Blood Potassium (3.6-5.2) mmol/L Urine Color (YELLOW) Urine Clarity (Clear) Urine pH (5.0-8.0) Ur Specific [place] (1.003-1.030) Urine Protein (NEGATIVE) mg/dL Urine Glucose (UA) (Normal) mg/dL Urine Ketones (NEGATIVE) mg/dL Urine Blood (NEGATIVE) Urine Nitrate (NEGATIVE) Urine Bilirubin (NEGATIVE) Urine Urobilinogen (0.2-1.0) mg/dL Ur Leukocyte Esterase (Negative) Florencio/uL Urine WBC (Auto) (0-5) /hpf Urine RBC (Auto) (0-3) /hpf Ur Squamous Epith Cells (0-5) /hpf Amorphous Sediment (<OCC) /ul Urine Bacteria (<OCC) Hyaline Casts (0-2) /lpf Blood Type Antibody Screen 08/12/18 08/11/18 08/11/18 Range/Units 01:11 23:55 23:18 WBC (4.8-10.8) K/uL RBC (4.40-5.90) Mil/uL Hgb (12.0-18.0) g/dL Hct (35.0-51.0) % MCV (80.0-94.0) fL MCH (27.0-31.0) pg MCHC (33.0-37.0) g/dL RDW (11.5-14.5) % Plt Count (130-400) K/uL MPV (7.2-11.7) fL Neut % (Auto) (50.0-75.0) % Lymph % (Auto) (20.0-40.0) % [place] % (Auto) (0.0-10.0) % Eos % (Auto) (0.0-4.0) % Baso % (Auto) (0.0-2.0) % Neut # (Auto) (1.8-7.0) K/uL Lymph # (Auto) (1.0-4.3) K/uL [place] # (Auto) (0.0-0.8) K/uL Eos # (Auto) (0.0-0.7) K/uL Baso # (Auto) (0.0-0.2) K/uL Neutrophils % (Manual) (50-75) % Band Neutrophils % (0-2) % Lymphocytes % (Manual) (20-40) % Monocytes % (Manual) (0-10) % Platelet Estimate (NORMAL) PT (9.7-12.2) SECONDS INR APTT (21-34) SECONDS Puncture Site pCO2 (35-45) mm/Hg pO2 (80-100) mm/Hg HCO3 (21-28) mmol/L ABG pH (7.35-7.45) ABG Total CO2 (22-28) mmol/L ABG O2 Saturation (95-98) % ABG Base Excess (-2.0-3.0) mmol/L Danny Test ABG Potassium (3.6-5.2) mmol/L A-a O2 Difference mm/Hg Respiratory Index Glucose (75-110) mg/dl Lactate (0.7-2.1) mmol/L Vent Mode Mechanical Rate FiO2 % Tidal Volume PEEP Sodium (132-148) mmol/L Potassium (3.6-5.2) mmol/L Chloride (98-107) mmol/L Carbon Dioxide (22-30) mmol/L Anion Gap (10-20) BUN (9-20) mg/dL Creatinine (0.8-1.5) mg/dL Est GFR ( Amer) Est GFR (Non-Af Amer) POC Glucose (mg/dL) 181 H 231 H 206 H (65-110) mg/dL Random Glucose (75-110) mg/dL Lactic Acid (0.7-2.1) mmol/L Calcium (8.6-10.4) mg/dl Phosphorus (2.5-4.5) mg/dL Magnesium (1.6-2.3) mg/dL Total Bilirubin (0.2-1.3) mg/dL AST (17-59) U/L ALT (21-72) U/L Alkaline Phosphatase (38-126) U/L Total Creatine Kinase (55-170) U/L CK-MB (Mass) (0.0-3.38) ng/mL Troponin I (0.00-0.120) ng/mL Total Protein (6.3-8.3) g/dL Albumin (3.5-5.0) g/dL Globulin (2.2-3.9) gm/dL Albumin/Globulin Ratio (1.0-2.1) Triglycerides (0-149) mg/dL Cholesterol (0-199) mg/dL LDL Cholesterol Direct (0-129) mg/dL HDL Cholesterol (30-70) mg/dL Arterial Blood Potassium (3.6-5.2) mmol/L Urine Color (YELLOW) Urine Clarity (Clear) Urine pH (5.0-8.0) Ur Specific [place] (1.003-1.030) Urine Protein (NEGATIVE) mg/dL Urine Glucose (UA) (Normal) mg/dL Urine Ketones (NEGATIVE) mg/dL Urine Blood (NEGATIVE) Urine Nitrate (NEGATIVE) Urine Bilirubin (NEGATIVE) Urine Urobilinogen (0.2-1.0) mg/dL Ur Leukocyte Esterase (Negative) Florencio/uL Urine WBC (Auto) (0-5) /hpf Urine RBC (Auto) (0-3) /hpf Ur Squamous Epith Cells (0-5) /hpf Amorphous Sediment (<OCC) /ul Urine Bacteria (<OCC) Hyaline Casts (0-2) /lpf Blood Type Antibody Screen 08/11/18 08/11/18 08/11/18 Range/Units 22:50 22:50 22:50 WBC 14.8 H D (4.8-10.8) K/uL RBC 3.94 L (4.40-5.90) Mil/uL Hgb 11.9 L (12.0-18.0) g/dL Hct 36.0 (35.0-51.0) % MCV 91.3 (80.0-94.0) fL MCH 30.2 (27.0-31.0) pg MCHC 33.1 (33.0-37.0) g/dL RDW 14.0 (11.5-14.5) % Plt Count 222 (130-400) K/uL MPV 7.6 (7.2-11.7) fL Neut % (Auto) 91.6 H (50.0-75.0) % Lymph % (Auto) 4.0 L (20.0-40.0) % [place] % (Auto) 4.1 (0.0-10.0) % Eos % (Auto) 0.0 (0.0-4.0) % Baso % (Auto) 0.3 (0.0-2.0) % Neut # (Auto) 13.6 H (1.8-7.0) K/uL Lymph # (Auto) 0.6 L (1.0-4.3) K/uL [place] # (Auto) 0.6 (0.0-0.8) K/uL Eos # (Auto) 0.0 (0.0-0.7) K/uL Baso # (Auto) 0.0 (0.0-0.2) K/uL Neutrophils % (Manual) 88 H (50-75) % Band Neutrophils % 4 H (0-2) % Lymphocytes % (Manual) 4 L (20-40) % Monocytes % (Manual) 4 (0-10) % Platelet Estimate Normal (NORMAL) PT (9.7-12.2) SECONDS INR APTT (21-34) SECONDS Puncture Site pCO2 (35-45) mm/Hg pO2 (80-100) mm/Hg HCO3 (21-28) mmol/L ABG pH (7.35-7.45) ABG Total CO2 (22-28) mmol/L ABG O2 Saturation (95-98) % ABG Base Excess (-2.0-3.0) mmol/L Danny Test ABG Potassium (3.6-5.2) mmol/L A-a O2 Difference mm/Hg Respiratory Index Glucose (75-110) mg/dl Lactate (0.7-2.1) mmol/L Vent Mode Mechanical Rate FiO2 % Tidal Volume PEEP Sodium 136 (132-148) mmol/L Potassium 4.8 (3.6-5.2) mmol/L Chloride 108 H (98-107) mmol/L Carbon Dioxide 19 L (22-30) mmol/L Anion Gap 14 (10-20) BUN 25 H (9-20) mg/dL Creatinine 1.2 (0.8-1.5) mg/dL Est GFR ( Amer) > 60 Est GFR (Non-Af Amer) 58 POC Glucose (mg/dL) (65-110) mg/dL Random Glucose 192 H (75-110) mg/dL Lactic Acid 3.7 H (0.7-2.1) mmol/L Calcium 7.7 L (8.6-10.4) mg/dl Phosphorus 6.4 H (2.5-4.5) mg/dL Magnesium 1.9 (1.6-2.3) mg/dL Total Bilirubin 0.4 (0.2-1.3) mg/dL AST 110 H (17-59) U/L ALT 73 H (21-72) U/L Alkaline Phosphatase 74 (38-126) U/L Total Creatine Kinase (55-170) U/L CK-MB (Mass) (0.0-3.38) ng/mL Troponin I (0.00-0.120) ng/mL Total Protein 6.6 (6.3-8.3) g/dL Albumin 3.4 L (3.5-5.0) g/dL Globulin 3.2 (2.2-3.9) gm/dL Albumin/Globulin Ratio 1.1 (1.0-2.1) Triglycerides (0-149) mg/dL Cholesterol (0-199) mg/dL LDL Cholesterol Direct (0-129) mg/dL HDL Cholesterol (30-70) mg/dL Arterial Blood Potassium (3.6-5.2) mmol/L Urine Color (YELLOW) Urine Clarity (Clear) Urine pH (5.0-8.0) Ur Specific [place] (1.003-1.030) Urine Protein (NEGATIVE) mg/dL Urine Glucose (UA) (Normal) mg/dL Urine Ketones (NEGATIVE) mg/dL Urine Blood (NEGATIVE) Urine Nitrate (NEGATIVE) Urine Bilirubin (NEGATIVE) Urine Urobilinogen (0.2-1.0) mg/dL Ur Leukocyte Esterase (Negative) Florencio/uL Urine WBC (Auto) (0-5) /hpf Urine RBC (Auto) (0-3) /hpf Ur Squamous Epith Cells (0-5) /hpf Amorphous Sediment (<OCC) /ul Urine Bacteria (<OCC) Hyaline Casts (0-2) /lpf Blood Type Antibody Screen 08/11/18 08/11/18 08/11/18 Range/Units 22:10 21:19 20:31 WBC (4.8-10.8) K/uL RBC (4.40-5.90) Mil/uL Hgb (12.0-18.0) g/dL Hct (35.0-51.0) % MCV (80.0-94.0) fL MCH (27.0-31.0) pg MCHC (33.0-37.0) g/dL RDW (11.5-14.5) % Plt Count (130-400) K/uL MPV (7.2-11.7) fL Neut % (Auto) (50.0-75.0) % Lymph % (Auto) (20.0-40.0) % [place] % (Auto) (0.0-10.0) % Eos % (Auto) (0.0-4.0) % Baso % (Auto) (0.0-2.0) % Neut # (Auto) (1.8-7.0) K/uL Lymph # (Auto) (1.0-4.3) K/uL [place] # (Auto) (0.0-0.8) K/uL Eos # (Auto) (0.0-0.7) K/uL Baso # (Auto) (0.0-0.2) K/uL Neutrophils % (Manual) (50-75) % Band Neutrophils % (0-2) % Lymphocytes % (Manual) (20-40) % Monocytes % (Manual) (0-10) % Platelet Estimate (NORMAL) PT (9.7-12.2) SECONDS INR APTT (21-34) SECONDS Puncture Site pCO2 (35-45) mm/Hg pO2 (80-100) mm/Hg HCO3 (21-28) mmol/L ABG pH (7.35-7.45) ABG Total CO2 (22-28) mmol/L ABG O2 Saturation (95-98) % ABG Base Excess (-2.0-3.0) mmol/L Danny Test ABG Potassium (3.6-5.2) mmol/L A-a O2 Difference mm/Hg Respiratory Index Glucose (75-110) mg/dl Lactate (0.7-2.1) mmol/L Vent Mode Mechanical Rate FiO2 % Tidal Volume PEEP Sodium (132-148) mmol/L Potassium (3.6-5.2) mmol/L Chloride (98-107) mmol/L Carbon Dioxide (22-30) mmol/L Anion Gap (10-20) BUN (9-20) mg/dL Creatinine (0.8-1.5) mg/dL Est GFR ( Amer) Est GFR (Non-Af Amer) POC Glucose (mg/dL) 217 H 218 H 248 H (65-110) mg/dL Random Glucose (75-110) mg/dL Lactic Acid (0.7-2.1) mmol/L Calcium (8.6-10.4) mg/dl Phosphorus (2.5-4.5) mg/dL Magnesium (1.6-2.3) mg/dL Total Bilirubin (0.2-1.3) mg/dL AST (17-59) U/L ALT (21-72) U/L Alkaline Phosphatase (38-126) U/L Total Creatine Kinase (55-170) U/L CK-MB (Mass) (0.0-3.38) ng/mL Troponin I (0.00-0.120) ng/mL Total Protein (6.3-8.3) g/dL Albumin (3.5-5.0) g/dL Globulin (2.2-3.9) gm/dL Albumin/Globulin Ratio (1.0-2.1) Triglycerides (0-149) mg/dL Cholesterol (0-199) mg/dL LDL Cholesterol Direct (0-129) mg/dL HDL Cholesterol (30-70) mg/dL Arterial Blood Potassium (3.6-5.2) mmol/L Urine Color (YELLOW) Urine Clarity (Clear) Urine pH (5.0-8.0) Ur Specific [place] (1.003-1.030) Urine Protein (NEGATIVE) mg/dL Urine Glucose (UA) (Normal) mg/dL Urine Ketones (NEGATIVE) mg/dL Urine Blood (NEGATIVE) Urine Nitrate (NEGATIVE) Urine Bilirubin (NEGATIVE) Urine Urobilinogen (0.2-1.0) mg/dL Ur Leukocyte Esterase (Negative) Florencio/uL Urine WBC (Auto) (0-5) /hpf Urine RBC (Auto) (0-3) /hpf Ur Squamous Epith Cells (0-5) /hpf Amorphous Sediment (<OCC) /ul Urine Bacteria (<OCC) Hyaline Casts (0-2) /lpf Blood Type Antibody Screen 08/11/18 08/11/18 08/11/18 Range/Units 19:26 18:59 17:04 WBC (4.8-10.8) K/uL RBC (4.40-5.90) Mil/uL Hgb (12.0-18.0) g/dL Hct (35.0-51.0) % MCV (80.0-94.0) fL MCH (27.0-31.0) pg MCHC (33.0-37.0) g/dL RDW (11.5-14.5) % Plt Count (130-400) K/uL MPV (7.2-11.7) fL Neut % (Auto) (50.0-75.0) % Lymph % (Auto) (20.0-40.0) % [place] % (Auto) (0.0-10.0) % Eos % (Auto) (0.0-4.0) % Baso % (Auto) (0.0-2.0) % Neut # (Auto) (1.8-7.0) K/uL Lymph # (Auto) (1.0-4.3) K/uL [place] # (Auto) (0.0-0.8) K/uL Eos # (Auto) (0.0-0.7) K/uL Baso # (Auto) (0.0-0.2) K/uL Neutrophils % (Manual) (50-75) % Band Neutrophils % (0-2) % Lymphocytes % (Manual) (20-40) % Monocytes % (Manual) (0-10) % Platelet Estimate (NORMAL) PT (9.7-12.2) SECONDS INR APTT (21-34) SECONDS Puncture Site Lr pCO2 39 (35-45) mm/Hg pO2 134 H (80-100) mm/Hg HCO3 16.3 L (21-28) mmol/L ABG pH 7.22 L (7.35-7.45) ABG Total CO2 17.2 L (22-28) mmol/L ABG O2 Saturation 99.3 H (95-98) % ABG Base Excess -11.1 L (-2.0-3.0) mmol/L Danny Test Unable ABG Potassium 3.7 (3.6-5.2) mmol/L A-a O2 Difference 316.0 mm/Hg Respiratory Index 2.4 Glucose 174 H (75-110) mg/dl Lactate 3.4 H (0.7-2.1) mmol/L Vent Mode Prvc Mechanical Rate 12 FiO2 70.0 % Tidal Volume 500 PEEP 5 Sodium 142.0 (132-148) mmol/L Potassium (3.6-5.2) mmol/L Chloride 113.0 H (98-107) mmol/L Carbon Dioxide (22-30) mmol/L Anion Gap (10-20) BUN (9-20) mg/dL Creatinine (0.8-1.5) mg/dL Est GFR ( Amer) Est GFR (Non-Af Amer) POC Glucose (mg/dL) 161 H (65-110) mg/dL Random Glucose (75-110) mg/dL Lactic Acid (0.7-2.1) mmol/L Calcium (8.6-10.4) mg/dl Phosphorus (2.5-4.5) mg/dL Magnesium (1.6-2.3) mg/dL Total Bilirubin (0.2-1.3) mg/dL AST (17-59) U/L ALT (21-72) U/L Alkaline Phosphatase (38-126) U/L Total Creatine Kinase (55-170) U/L CK-MB (Mass) (0.0-3.38) ng/mL Troponin I (0.00-0.120) ng/mL Total Protein (6.3-8.3) g/dL Albumin (3.5-5.0) g/dL Globulin (2.2-3.9) gm/dL Albumin/Globulin Ratio (1.0-2.1) Triglycerides (0-149) mg/dL Cholesterol (0-199) mg/dL LDL Cholesterol Direct (0-129) mg/dL HDL Cholesterol (30-70) mg/dL Arterial Blood Potassium 3.7 (3.6-5.2) mmol/L Urine Color Yellow (YELLOW) Urine Clarity Hazy (Clear) Urine pH 5.0 (5.0-8.0) Ur Specific [place] 1.019 (1.003-1.030) Urine Protein 3+ H (NEGATIVE) mg/dL Urine Glucose (UA) Normal (Normal) mg/dL Urine Ketones Negative (NEGATIVE) mg/dL Urine Blood 2+ H (NEGATIVE) Urine Nitrate Negative (NEGATIVE) Urine Bilirubin Negative (NEGATIVE) Urine Urobilinogen Normal (0.2-1.0) mg/dL Ur Leukocyte Esterase Neg (Negative) Florencio/uL Urine WBC (Auto) 8 H (0-5) /hpf Urine RBC (Auto) 6 H (0-3) /hpf Ur Squamous Epith Cells 1 (0-5) /hpf Amorphous Sediment Moderate H (<OCC) /ul Urine Bacteria Rare (<OCC) Hyaline Casts 6-10 H (0-2) /lpf Blood Type Antibody Screen 08/11/18 08/11/18 08/11/18 Range/Units 15:41 14:39 14:36 WBC (4.8-10.8) K/uL RBC (4.40-5.90) Mil/uL Hgb (12.0-18.0) g/dL Hct (35.0-51.0) % MCV (80.0-94.0) fL MCH (27.0-31.0) pg MCHC (33.0-37.0) g/dL RDW (11.5-14.5) % Plt Count (130-400) K/uL MPV (7.2-11.7) fL Neut % (Auto) (50.0-75.0) % Lymph % (Auto) (20.0-40.0) % [place] % (Auto) (0.0-10.0) % Eos % (Auto) (0.0-4.0) % Baso % (Auto) (0.0-2.0) % Neut # (Auto) (1.8-7.0) K/uL Lymph # (Auto) (1.0-4.3) K/uL [place] # (Auto) (0.0-0.8) K/uL Eos # (Auto) (0.0-0.7) K/uL Baso # (Auto) (0.0-0.2) K/uL Neutrophils % (Manual) (50-75) % Band Neutrophils % (0-2) % Lymphocytes % (Manual) (20-40) % Monocytes % (Manual) (0-10) % Platelet Estimate (NORMAL) PT (9.7-12.2) SECONDS INR APTT (21-34) SECONDS Puncture Site Lf pCO2 40 (35-45) mm/Hg pO2 426 H (80-100) mm/Hg HCO3 18.2 L (21-28) mmol/L ABG pH 7.26 L (7.35-7.45) ABG Total CO2 19.1 L (22-28) mmol/L ABG O2 Saturation 100.0 H (95-98) % ABG Base Excess -8.7 L (-2.0-3.0) mmol/L Danny Test Na ABG Potassium 3.4 L (3.6-5.2) mmol/L A-a O2 Difference mm/Hg Respiratory Index Glucose 159 H (75-110) mg/dl Lactate 4.8 H* (0.7-2.1) mmol/L Vent Mode Mechanical Rate FiO2 % Tidal Volume PEEP Sodium 136.0 (132-148) mmol/L Potassium (3.6-5.2) mmol/L Chloride 105.0 (98-107) mmol/L Carbon Dioxide (22-30) mmol/L Anion Gap (10-20) BUN (9-20) mg/dL Creatinine (0.8-1.5) mg/dL Est GFR ( Amer) Est GFR (Non-Af Amer) POC Glucose (mg/dL) 114 H (65-110) mg/dL Random Glucose (75-110) mg/dL Lactic Acid (0.7-2.1) mmol/L Calcium (8.6-10.4) mg/dl Phosphorus (2.5-4.5) mg/dL Magnesium (1.6-2.3) mg/dL Total Bilirubin (0.2-1.3) mg/dL AST (17-59) U/L ALT (21-72) U/L Alkaline Phosphatase (38-126) U/L Total Creatine Kinase (55-170) U/L CK-MB (Mass) (0.0-3.38) ng/mL Troponin I (0.00-0.120) ng/mL Total Protein (6.3-8.3) g/dL Albumin (3.5-5.0) g/dL Globulin (2.2-3.9) gm/dL Albumin/Globulin Ratio (1.0-2.1) Triglycerides (0-149) mg/dL Cholesterol (0-199) mg/dL LDL Cholesterol Direct (0-129) mg/dL HDL Cholesterol (30-70) mg/dL Arterial Blood Potassium 3.4 L (3.6-5.2) mmol/L Urine Color (YELLOW) Urine Clarity (Clear) Urine pH (5.0-8.0) Ur Specific [place] (1.003-1.030) Urine Protein (NEGATIVE) mg/dL Urine Glucose (UA) (Normal) mg/dL Urine Ketones (NEGATIVE) mg/dL Urine Blood (NEGATIVE) Urine Nitrate (NEGATIVE) Urine Bilirubin (NEGATIVE) Urine Urobilinogen (0.2-1.0) mg/dL Ur Leukocyte Esterase (Negative) Fl[place]io/uL Urine WBC (Auto) (0-5) /hpf Urine RBC (Auto) (0-3) /hpf Ur Squamous Epith Cells (0-5) /hpf Amorphous Sediment (<OCC) /ul Urine Bacteria (<OCC) Hyaline Casts (0-2) /lpf Blood Type O POSITIVE Antibody Screen Negative 08/11/18 08/11/18 08/11/18 Range/Units 14:36 14:36 14:36 WBC 8.8 (4.8-10.8) K/uL RBC 4.09 L (4.40-5.90) Mil/uL Hgb 12.4 (12.0-18.0) g/dL Hct 37.8 (35.0-51.0) % MCV 92.4 D (80.0-94.0) fL MCH 30.2 (27.0-31.0) pg MCHC 32.7 L (33.0-37.0) g/dL RDW 14.3 (11.5-14.5) % Plt Count 239 (130-400) K/uL MPV 7.7 (7.2-11.7) fL Neut % (Auto) 47.8 L (50.0-75.0) % Lymph % (Auto) 44.1 H (20.0-40.0) % [place] % (Auto) 5.6 (0.0-10.0) % Eos % (Auto) 2.1 (0.0-4.0) % Baso % (Auto) 0.4 (0.0-2.0) % Neut # (Auto) 4.2 (1.8-7.0) K/uL Lymph # (Auto) 3.9 (1.0-4.3) K/uL [place] # (Auto) 0.5 (0.0-0.8) K/uL Eos # (Auto) 0.2 (0.0-0.7) K/uL Baso # (Auto) 0.0 (0.0-0.2) K/uL Neutrophils % (Manual) (50-75) % Band Neutrophils % (0-2) % Lymphocytes % (Manual) (20-40) % Monocytes % (Manual) (0-10) % Platelet Estimate (NORMAL) PT 22.7 H (9.7-12.2) SECONDS INR 2.1 APTT 33 (21-34) SECONDS Puncture Site pCO2 (35-45) mm/Hg pO2 (80-100) mm/Hg HCO3 (21-28) mmol/L ABG pH (7.35-7.45) ABG Total CO2 (22-28) mmol/L ABG O2 Saturation (95-98) % ABG Base Excess (-2.0-3.0) mmol/L Danny Test ABG Potassium (3.6-5.2) mmol/L A-a O2 Difference mm/Hg Respiratory Index Glucose (75-110) mg/dl Lactate (0.7-2.1) mmol/L Vent Mode Mechanical Rate FiO2 % Tidal Volume PEEP Sodium 137 (132-148) mmol/L Potassium 4.3 (3.6-5.2) mmol/L Chloride 104 (98-107) mmol/L Carbon Dioxide 20 L (22-30) mmol/L Anion Gap 17 (10-20) BUN 23 H (9-20) mg/dL Creatinine 1.4 (0.8-1.5) mg/dL Est GFR ( Amer) 59 Est GFR (Non-Af Amer) 49 POC Glucose (mg/dL) (65-110) mg/dL Random Glucose 176 H D (75-110) mg/dL Lactic Acid (0.7-2.1) mmol/L Calcium 8.5 L (8.6-10.4) mg/dl Phosphorus (2.5-4.5) mg/dL Magnesium (1.6-2.3) mg/dL Total Bilirubin 0.3 (0.2-1.3) mg/dL AST 100 H D (17-59) U/L ALT 81 H D (21-72) U/L Alkaline Phosphatase 78 (38-126) U/L Total Creatine Kinase 240 H (55-170) U/L CK-MB (Mass) 1.57 (0.0-3.38) ng/mL Troponin I 0.0400 (0.00-0.120) ng/mL Total Protein 7.0 (6.3-8.3) g/dL Albumin 4.0 (3.5-5.0) g/dL Globulin 3.0 (2.2-3.9) gm/dL Albumin/Globulin Ratio 1.3 (1.0-2.1) Triglycerides 288 H (0-149) mg/dL Cholesterol 167 (0-199) mg/dL LDL Cholesterol Direct 87 (0-129) mg/dL HDL Cholesterol 37 (30-70) mg/dL Arterial Blood Potassium (3.6-5.2) mmol/L Urine Color (YELLOW) Urine Clarity (Clear) Urine pH (5.0-8.0) Ur Specific [place] (1.003-1.030) Urine Protein (NEGATIVE) mg/dL Urine Glucose (UA) (Normal) mg/dL Urine Ketones (NEGATIVE) mg/dL Urine Blood (NEGATIVE) Urine Nitrate (NEGATIVE) Urine Bilirubin (NEGATIVE) Urine Urobilinogen (0.2-1.0) mg/dL Ur Leukocyte Esterase (Negative) [place]/uL Urine WBC (Auto) (0-5) /hpf Urine RBC (Auto) (0-3) /hpf Ur Squamous Epith Cells (0-5) /hpf Amorphous Sediment (<OCC) /ul Urine Bacteria (<OCC) Hyaline Casts (0-2) /lpf Blood Type Antibody Screen 08/11/18 Range/Units 14:25 WBC (4.8-10.8) K/uL RBC (4.40-5.90) Mil/uL Hgb (12.0-18.0) g/dL Hct (35.0-51.0) % MCV (80.0-94.0) fL MCH (27.0-31.0) pg MCHC (33.0-37.0) g/dL RDW (11.5-14.5) % Plt Count (130-400) K/uL MPV (7.2-11.7) fL Neut % (Auto) (50.0-75.0) % Lymph % (Auto) (20.0-40.0) % [place] % (Auto) (0.0-10.0) % Eos % (Auto) (0.0-4.0) % Baso % (Auto) (0.0-2.0) % Neut # (Auto) (1.8-7.0) K/uL Lymph # (Auto) (1.0-4.3) K/uL [place] # (Auto) (0.0-0.8) K/uL Eos # (Auto) (0.0-0.7) K/uL Baso # (Auto) (0.0-0.2) K/uL Neutrophils % (Manual) (50-75) % Band Neutrophils % (0-2) % Lymphocytes % (Manual) (20-40) % Monocytes % (Manual) (0-10) % Platelet Estimate (NORMAL) PT (9.7-12.2) SECONDS INR APTT (21-34) SECONDS Puncture Site Lf pCO2 41 (35-45) mm/Hg pO2 486 H (80-100) mm/Hg HCO3 19.5 L (21-28) mmol/L ABG pH 7.28 L (7.35-7.45) ABG Total CO2 20.6 L (22-28) mmol/L ABG O2 Saturation 100.2 H (95-98) % ABG Base Excess -7.1 L (-2.0-3.0) mmol/L Danny Test Na ABG Potassium (3.6-5.2) mmol/L A-a O2 Difference 176.0 mm/Hg Respiratory Index 0.4 Glucose (75-110) mg/dl Lactate (0.7-2.1) mmol/L Vent Mode Ac Mechanical Rate 12 FiO2 100 % Tidal Volume 500 PEEP 5 Sodium (132-148) mmol/L Potassium (3.6-5.2) mmol/L Chloride (98-107) mmol/L Carbon Dioxide (22-30) mmol/L Anion Gap (10-20) BUN (9-20) mg/dL Creatinine (0.8-1.5) mg/dL Est GFR ( Amer) Est GFR (Non-Af Amer) POC Glucose (mg/dL) (65-110) mg/dL Random Glucose (75-110) mg/dL Lactic Acid (0.7-2.1) mmol/L Calcium (8.6-10.4) mg/dl Phosphorus (2.5-4.5) mg/dL Magnesium (1.6-2.3) mg/dL Total Bilirubin (0.2-1.3) mg/dL AST (17-59) U/L ALT (21-72) U/L Alkaline Phosphatase (38-126) U/L Total Creatine Kinase (55-170) U/L CK-MB (Mass) (0.0-3.38) ng/mL Troponin I (0.00-0.120) ng/mL Total Protein (6.3-8.3) g/dL Albumin (3.5-5.0) g/dL Globulin (2.2-3.9) gm/dL Albumin/Globulin Ratio (1.0-2.1) Triglycerides (0-149) mg/dL Cholesterol (0-199) mg/dL LDL Cholesterol Direct (0-129) mg/dL HDL Cholesterol (30-70) mg/dL Arterial Blood Potassium (3.6-5.2) mmol/L Urine Color (YELLOW) Urine Clarity (Clear) Urine pH (5.0-8.0) Ur Specific [place] (1.003-1.030) Urine Protein (NEGATIVE) mg/dL Urine Glucose (UA) (Normal) mg/dL Urine Ketones (NEGATIVE) mg/dL Urine Blood (NEGATIVE) Urine Nitrate (NEGATIVE) Urine Bilirubin (NEGATIVE) Urine Urobilinogen (0.2-1.0) mg/dL Ur Leukocyte Esterase (Negative) [place]/uL Urine WBC (Auto) (0-5) /hpf Urine RBC (Auto) (0-3) /hpf Ur Squamous Epith Cells (0-5) /hpf Amorphous Sediment (<OCC) /ul Urine Bacteria (<OCC) Hyaline Casts (0-2) /lpf Blood Type Antibody Screen Laboratory Results - last 24 hr 08/11/18 08/11/18 08/11/18 14:25 14:36 14:36 WBC 8.8 RBC 4.09 L Hgb 12.4 Hct 37.8 MCV 92.4 D MCH 30.2 MCHC 32.7 L RDW 14.3 Plt Count 239 MPV 7.7 Neut % (Auto) 47.8 L Lymph % (Auto) 44.1 H [place] % (Auto) 5.6 Eos % (Auto) 2.1 Baso % (Auto) 0.4 Neut # (Auto) 4.2 Lymph # (Auto) 3.9 [place] # (Auto) 0.5 Eos # (Auto) 0.2 Baso # (Auto) 0.0 Neutrophils % (Manual) Band Neutrophils % Lymphocytes % (Manual) Monocytes % (Manual) Platelet Estimate PT INR APTT Puncture Site Lf pCO2 41 pO2 486 H HCO3 19.5 L ABG pH 7.28 L ABG Total CO2 20.6 L ABG O2 Saturation 100.2 H ABG Base Excess -7.1 L Danny Test Na ABG Potassium A-a O2 Difference 176.0 Respiratory Index 0.4 Glucose Lactate Vent Mode Ac Mechanical Rate 12 FiO2 100 Tidal Volume 500 PEEP 5 Sodium 137 Potassium 4.3 Chloride 104 Carbon Dioxide 20 L Anion Gap 17 BUN 23 H Creatinine 1.4 Est GFR ( Amer) 59 Est GFR (Non-Af Amer) 49 POC Glucose (mg/dL) Random Glucose 176 H D Lactic Acid Calcium 8.5 L Phosphorus Magnesium Total Bilirubin 0.3 AST 100 H D ALT 81 H D Alkaline Phosphatase 78 Total Creatine Kinase 240 H CK-MB (Mass) 1.57 Troponin I 0.0400 Total Protein 7.0 Albumin 4.0 Globulin 3.0 Albumin/Globulin Ratio 1.3 Triglycerides 288 H Cholesterol 167 LDL Cholesterol Direct 87 HDL Cholesterol 37 Arterial Blood Potassium Urine Color Urine Clarity Urine pH Ur Specific [place] Urine Protein Urine Glucose (UA) Urine Ketones Urine Blood Urine Nitrate Urine Bilirubin Urine Urobilinogen Ur Leukocyte Esterase Urine WBC (Auto) Urine RBC (Auto) Ur Squamous Epith Cells Amorphous Sediment Urine Bacteria Hyaline Casts Blood Type Antibody Screen 08/11/18 08/11/18 08/11/18 14:36 14:36 14:39 WBC RBC Hgb Hct MCV MCH MCHC RDW Plt Count MPV Neut % (Auto) Lymph % (Auto) [place] % (Auto) Eos % (Auto) Baso % (Auto) Neut # (Auto) Lymph # (Auto) [place] # (Auto) Eos # (Auto) Baso # (Auto) Neutrophils % (Manual) Band Neutrophils % Lymphocytes % (Manual) Monocytes % (Manual) Platelet Estimate PT 22.7 H INR 2.1 APTT 33 Puncture Site Lf pCO2 40 pO2 426 H HCO3 18.2 L ABG pH 7.26 L ABG Total CO2 19.1 L ABG O2 Saturation 100.0 H ABG Base Excess -8.7 L Danny Test Na ABG Potassium 3.4 L A-a O2 Difference Respiratory Index Glucose 159 H Lactate 4.8 H* Vent Mode Mechanical Rate FiO2 Tidal Volume PEEP Sodium 136.0 Potassium Chloride 105.0 Carbon Dioxide Anion Gap BUN Creatinine Est GFR ( Amer) Est GFR (Non-Af Amer) POC Glucose (mg/dL) Random Glucose Lactic Acid Calcium Phosphorus Magnesium Total Bilirubin AST ALT Alkaline Phosphatase Total Creatine Kinase CK-MB (Mass) Troponin I Total Protein Albumin Globulin Albumin/Globulin Ratio Triglycerides Cholesterol LDL Cholesterol Direct HDL Cholesterol Arterial Blood Potassium 3.4 L Urine Color Urine Clarity Urine pH Ur Specific [place] Urine Protein Urine Glucose (UA) Urine Ketones Urine Blood Urine Nitrate Urine Bilirubin Urine Urobilinogen Ur Leukocyte Esterase Urine WBC (Auto) Urine RBC (Auto) Ur Squamous Epith Cells Amorphous Sediment Urine Bacteria Hyaline Casts Blood Type O POSITIVE Antibody Screen Negative 08/11/18 08/11/18 08/11/18 15:41 17:04 18:59 WBC RBC Hgb Hct MCV MCH MCHC RDW Plt Count MPV Neut % (Auto) Lymph % (Auto) [place] % (Auto) Eos % (Auto) Baso % (Auto) Neut # (Auto) Lymph # (Auto) [place] # (Auto) Eos # (Auto) Baso # (Auto) Neutrophils % (Manual) Band Neutrophils % Lymphocytes % (Manual) Monocytes % (Manual) Platelet Estimate PT INR APTT Puncture Site Lr pCO2 39 pO2 134 H HCO3 16.3 L ABG pH 7.22 L ABG Total CO2 17.2 L ABG O2 Saturation 99.3 H ABG Base Excess -11.1 L Danny Test Unable ABG Potassium 3.7 A-a O2 Difference 316.0 Respiratory Index 2.4 Glucose 174 H Lactate 3.4 H Vent Mode Prvc Mechanical Rate 12 FiO2 70.0 Tidal Volume 500 PEEP 5 Sodium 142.0 Potassium Chloride 113.0 H Carbon Dioxide Anion Gap BUN Creatinine Est GFR ( Amer) Est GFR (Non-Af Amer) POC Glucose (mg/dL) 114 H 161 H Random Glucose Lactic Acid Calcium Phosphorus Magnesium Total Bilirubin AST ALT Alkaline Phosphatase Total Creatine Kinase CK-MB (Mass) Troponin I Total Protein Albumin Globulin Albumin/Globulin Ratio Triglycerides Cholesterol LDL Cholesterol Direct HDL Cholesterol Arterial Blood Potassium 3.7 Urine Color Urine Clarity Urine pH Ur Specific [place] Urine Protein Urine Glucose (UA) Urine Ketones Urine Blood Urine Nitrate Urine Bilirubin Urine Urobilinogen Ur Leukocyte Esterase Urine WBC (Auto) Urine RBC (Auto) Ur Squamous Epith Cells Amorphous Sediment Urine Bacteria Hyaline Casts Blood Type Antibody Screen 08/11/18 08/11/18 08/11/18 19:26 20:31 21:19 WBC RBC Hgb Hct MCV MCH MCHC RDW Plt Count MPV Neut % (Auto) Lymph % (Auto) [place] % (Auto) Eos % (Auto) Baso % (Auto) Neut # (Auto) Lymph # (Auto) [place] # (Auto) Eos # (Auto) Baso # (Auto) Neutrophils % (Manual) Band Neutrophils % Lymphocytes % (Manual) Monocytes % (Manual) Platelet Estimate PT INR APTT Puncture Site pCO2 pO2 HCO3 ABG pH ABG Total CO2 ABG O2 Saturation ABG Base Excess Danny Test ABG Potassium A-a O2 Difference Respiratory Index Glucose Lactate Vent Mode Mechanical Rate FiO2 Tidal Volume PEEP Sodium Potassium Chloride Carbon Dioxide Anion Gap BUN Creatinine Est GFR ( Amer) Est GFR (Non-Af Amer) POC Glucose (mg/dL) 248 H 218 H Random Glucose Lactic Acid Calcium Phosphorus Magnesium Total Bilirubin AST ALT Alkaline Phosphatase Total Creatine Kinase CK-MB (Mass) Troponin I Total Protein Albumin Globulin Albumin/Globulin Ratio Triglycerides Cholesterol LDL Cholesterol Direct HDL Cholesterol Arterial Blood Potassium Urine Color Yellow Urine Clarity Hazy Urine pH 5.0 Ur Specific [place] 1.019 Urine Protein 3+ H Urine Glucose (UA) Normal Urine Ketones Negative Urine Blood 2+ H Urine Nitrate Negative Urine Bilirubin Negative Urine Urobilinogen Normal Ur Leukocyte Esterase Neg Urine WBC (Auto) 8 H Urine RBC (Auto) 6 H Ur Squamous Epith Cells 1 Amorphous Sediment Moderate H Urine Bacteria Rare Hyaline Casts 6-10 H Blood Type Antibody Screen 08/11/18 08/11/18 08/11/18 22:10 22:50 22:50 WBC 14.8 H D RBC 3.94 L Hgb 11.9 L Hct 36.0 MCV 91.3 MCH 30.2 MCHC 33.1 RDW 14.0 Plt Count 222 MPV 7.6 Neut % (Auto) 91.6 H Lymph % (Auto) 4.0 L [place] % (Auto) 4.1 Eos % (Auto) 0.0 Baso % (Auto) 0.3 Neut # (Auto) 13.6 H Lymph # (Auto) 0.6 L [place] # (Auto) 0.6 Eos # (Auto) 0.0 Baso # (Auto) 0.0 Neutrophils % (Manual) 88 H Band Neutrophils % 4 H Lymphocytes % (Manual) 4 L Monocytes % (Manual) 4 Platelet Estimate Normal PT INR APTT Puncture Site pCO2 pO2 HCO3 ABG pH ABG Total CO2 ABG O2 Saturation ABG Base Excess Danny Test ABG Potassium A-a O2 Difference Respiratory Index Glucose Lactate Vent Mode Mechanical Rate FiO2 Tidal Volume PEEP Sodium 136 Potassium 4.8 Chloride 108 H Carbon Dioxide 19 L Anion Gap 14 BUN 25 H Creatinine 1.2 Est GFR ( Amer) > 60 Est GFR (Non-Af Amer) 58 POC Glucose (mg/dL) 217 H Random Glucose 192 H Lactic Acid Calcium 7.7 L Phosphorus 6.4 H Magnesium 1.9 Total Bilirubin 0.4 AST 110 H ALT 73 H Alkaline Phosphatase 74 Total Creatine Kinase CK-MB (Mass) Troponin I Total Protein 6.6 Albumin 3.4 L Globulin 3.2 Albumin/Globulin Ratio 1.1 Triglycerides Cholesterol LDL Cholesterol Direct HDL Cholesterol Arterial Blood Potassium Urine Color Urine Clarity Urine pH Ur Specific [place] Urine Protein Urine Glucose (UA) Urine Ketones Urine Blood Urine Nitrate Urine Bilirubin Urine Urobilinogen Ur Leukocyte Esterase Urine WBC (Auto) Urine RBC (Auto) Ur Squamous Epith Cells Amorphous Sediment Urine Bacteria Hyaline Casts Blood Type Antibody Screen 08/11/18 08/11/18 08/11/18 22:50 23:18 23:55 WBC RBC Hgb Hct MCV MCH MCHC RDW Plt Count MPV Neut % (Auto) Lymph % (Auto) [place] % (Auto) Eos % (Auto) Baso % (Auto) Neut # (Auto) Lymph # (Auto) [place] # (Auto) Eos # (Auto) Baso # (Auto) Neutrophils % (Manual) Band Neutrophils % Lymphocytes % (Manual) Monocytes % (Manual) Platelet Estimate PT INR APTT Puncture Site pCO2 pO2 HCO3 ABG pH ABG Total CO2 ABG O2 Saturation ABG Base Excess Danny Test ABG Potassium A-a O2 Difference Respiratory Index Glucose Lactate Vent Mode Mechanical Rate FiO2 Tidal Volume PEEP Sodium Potassium Chloride Carbon Dioxide Anion Gap BUN Creatinine Est GFR ( Amer) Est GFR (Non-Af Amer) POC Glucose (mg/dL) 206 H 231 H Random Glucose Lactic Acid 3.7 H Calcium Phosphorus Magnesium Total Bilirubin AST ALT Alkaline Phosphatase Total Creatine Kinase CK-MB (Mass) Troponin I Total Protein Albumin Globulin Albumin/Globulin Ratio Triglycerides Cholesterol LDL Cholesterol Direct HDL Cholesterol Arterial Blood Potassium Urine Color Urine Clarity Urine pH Ur Specific [place] Urine Protein Urine Glucose (UA) Urine Ketones Urine Blood Urine Nitrate Urine Bilirubin Urine Urobilinogen Ur Leukocyte Esterase Urine WBC (Auto) Urine RBC (Auto) Ur Squamous Epith Cells Amorphous Sediment Urine Bacteria Hyaline Casts Blood Type Antibody Screen 08/12/18 08/12/18 08/12/18 01:11 02:31 02:52 WBC RBC Hgb Hct MCV MCH MCHC RDW Plt Count MPV Neut % (Auto) Lymph % (Auto) [place] % (Auto) Eos % (Auto) Baso % (Auto) Neut # (Auto) Lymph # (Auto) [place] # (Auto) Eos # (Auto) Baso # (Auto) Neutrophils % (Manual) Band Neutrophils % Lymphocytes % (Manual) Monocytes % (Manual) Platelet Estimate PT 17.8 H INR 1.6 D APTT 84 H D Puncture Site pCO2 pO2 HCO3 ABG pH ABG Total CO2 ABG O2 Saturation ABG Base Excess Danny Test ABG Potassium A-a O2 Difference Respiratory Index Glucose Lactate Vent Mode Mechanical Rate FiO2 Tidal Volume PEEP Sodium Potassium Chloride Carbon Dioxide Anion Gap BUN Creatinine Est GFR ( Amer) Est GFR (Non-Af Amer) POC Glucose (mg/dL) 181 H 190 H Random Glucose Lactic Acid Calcium Phosphorus Magnesium Total Bilirubin AST ALT Alkaline Phosphatase Total Creatine Kinase CK-MB (Mass) Troponin I Total Protein Albumin Globulin Albumin/Globulin Ratio Triglycerides Cholesterol LDL Cholesterol Direct HDL Cholesterol Arterial Blood Potassium Urine Color Urine Clarity Urine pH Ur Specific [place] Urine Protein Urine Glucose (UA) Urine Ketones Urine Blood Urine Nitrate Urine Bilirubin Urine Urobilinogen Ur Leukocyte Esterase Urine WBC (Auto) Urine RBC (Auto) Ur Squamous Epith Cells Amorphous Sediment Urine Bacteria Hyaline Casts Blood Type Antibody Screen 08/12/18 08/12/18 08/12/18 03:17 04:01 04:33 WBC RBC Hgb Hct MCV MCH MCHC RDW Plt Count MPV Neut % (Auto) Lymph % (Auto) [place] % (Auto) Eos % (Auto) Baso % (Auto) Neut # (Auto) Lymph # (Auto) [place] # (Auto) Eos # (Auto) Baso # (Auto) Neutrophils % (Manual) Band Neutrophils % Lymphocytes % (Manual) Monocytes % (Manual) Platelet Estimate PT INR APTT Puncture Site pCO2 pO2 HCO3 ABG pH ABG Total CO2 ABG O2 Saturation ABG Base Excess Danny Test ABG Potassium A-a O2 Difference Respiratory Index Glucose Lactate Vent Mode Mechanical Rate FiO2 Tidal Volume PEEP Sodium Potassium Chloride Carbon Dioxide Anion Gap BUN Creatinine Est GFR ( Amer) Est GFR (Non-Af Amer) POC Glucose (mg/dL) 176 H 183 H 152 H Random Glucose Lactic Acid Calcium Phosphorus Magnesium Total Bilirubin AST ALT Alkaline Phosphatase Total Creatine Kinase CK-MB (Mass) Troponin I Total Protein Albumin Globulin Albumin/Globulin Ratio Triglycerides Cholesterol LDL Cholesterol Direct HDL Cholesterol Arterial Blood Potassium Urine Color Urine Clarity Urine pH Ur Specific [place] Urine Protein Urine Glucose (UA) Urine Ketones Urine Blood Urine Nitrate Urine Bilirubin Urine Urobilinogen Ur Leukocyte Esterase Urine WBC (Auto) Urine RBC (Auto) Ur Squamous Epith Cells Amorphous Sediment Urine Bacteria Hyaline Casts Blood Type Antibody Screen 08/12/18 08/12/18 08/12/18 06:29 06:29 06:34 WBC 12.9 H RBC 3.60 L Hgb 11.0 L Hct 33.3 L MCV 92.4 MCH 30.7 MCHC 33.2 RDW 14.5 Plt Count 197 MPV 8.7 Neut % (Auto) 81.4 H Lymph % (Auto) 10.5 L [place] % (Auto) 8.0 Eos % (Auto) 0.0 Baso % (Auto) 0.1 Neut # (Auto) 10.5 H Lymph # (Auto) 1.4 [place] # (Auto) 1.0 H Eos # (Auto) 0.0 Baso # (Auto) 0.0 Neutrophils % (Manual) Band Neutrophils % Lymphocytes % (Manual) Monocytes % (Manual) Platelet Estimate PT INR APTT Puncture Site pCO2 pO2 HCO3 ABG pH ABG Total CO2 ABG O2 Saturation ABG Base Excess Danny Test ABG Potassium A-a O2 Difference Respiratory Index Glucose Lactate Vent Mode Mechanical Rate FiO2 Tidal Volume PEEP Sodium 137 Potassium 5.2 Chloride 110 H Carbon Dioxide 19 L Anion Gap 12 BUN 27 H Creatinine 1.2 Est GFR ( Amer) > 60 Est GFR (Non-Af Amer) 58 POC Glucose (mg/dL) 145 H Random Glucose 125 H D Lactic Acid Calcium 7.1 L Phosphorus 4.2 Magnesium 1.9 Total Bilirubin 0.4 AST 115 H ALT 63 Alkaline Phosphatase 52 Total Creatine Kinase CK-MB (Mass) Troponin I Total Protein 5.9 L Albumin 3.0 L Globulin 2.9 Albumin/Globulin Ratio 1.0 Triglycerides Cholesterol LDL Cholesterol Direct HDL Cholesterol Arterial Blood Potassium Urine Color Urine Clarity Urine pH Ur Specific [place] Urine Protein Urine Glucose (UA) Urine Ketones Urine Blood Urine Nitrate Urine Bilirubin Urine Urobilinogen Ur Leukocyte Esterase Urine WBC (Auto) Urine RBC (Auto) Ur Squamous Epith Cells Amorphous Sediment Urine Bacteria Hyaline Casts Blood Type Antibody Screen 08/12/18 07:03 WBC RBC Hgb Hct MCV MCH MCHC RDW Plt Count MPV Neut % (Auto) Lymph % (Auto) [place] % (Auto) Eos % (Auto) Baso % (Auto) Neut # (Auto) Lymph # (Auto) [place] # (Auto) Eos # (Auto) Baso # (Auto) Neutrophils % (Manual) Band Neutrophils % Lymphocytes % (Manual) Monocytes % (Manual) Platelet Estimate PT INR APTT Puncture Site pCO2 pO2 HCO3 ABG pH ABG Total CO2 ABG O2 Saturation ABG Base Excess Danny Test ABG Potassium A-a O2 Difference Respiratory Index Glucose Lactate Vent Mode Mechanical Rate FiO2 Tidal Volume PEEP Sodium Potassium Chloride Carbon Dioxide Anion Gap BUN Creatinine Est GFR ( Amer) Est GFR (Non-Af Amer) POC Glucose (mg/dL) 148 H Random Glucose Lactic Acid Calcium Phosphorus Magnesium Total Bilirubin AST ALT Alkaline Phosphatase Total Creatine Kinase CK-MB (Mass) Troponin I Total Protein Albumin Globulin Albumin/Globulin Ratio Triglycerides Cholesterol LDL Cholesterol Direct HDL Cholesterol Arterial Blood Potassium Urine Color Urine Clarity Urine pH Ur Specific [place] Urine Protein Urine Glucose (UA) Urine Ketones Urine Blood Urine Nitrate Urine Bilirubin Urine Urobilinogen Ur Leukocyte Esterase Urine WBC (Auto) Urine RBC (Auto) Ur Squamous Epith Cells Amorphous Sediment Urine Bacteria Hyaline Casts Blood Type Antibody Screen Radiology Impressions: Radiology Impressions Chest X-Ray 08/11/18 14:40 IMPRESSION: New endotracheal tube tip 5.4 cm above the tracheal carolann. Head CT 08/11/18 14:41 IMPRESSION: Small hypodensity involving the right frontal vertex appears consistent with chronic or remote infarction. Moderate nonspecific white matter changes. Fluid within the right mastoid air cells; correlate clinically for mastoiditis. Generalized atrophy. Additional incidental findings as above. EKG/Cardiology Studies: Cardiology / EKG Studies 08/11/18 14:15 EKG [ELECTROCARDIOGRAM] Stat Comment: Mode Of Transportation: BED Reason For Exam: cp 08/11/18 14:41 ELECTROCARDIOGRAM Stat Comment: ed 8b Mode Of Transportation: STRETCHER Reason For Exam: weakness Fingerstick Blood Sugar Results: 145 Results Reviewed to Date: Yes Review of Systems - Review of Systems Systems not reviewed;Unavailable: Intubated Critical Care Progress Note - Ventilator Checklist Head of Bed 30 Degrees: Yes Daily Sedation Vacation: Yes Daily Assessment of Readiness to Wean: Yes Daily Spontaneous Breathing Trial: Yes PUD Prophalyxis: Yes DVT Prophylaxis: Yes Oral Care with Chlorhexidine Gluconate {CHG}: Yes - Vent Settings MODE:: PRVC TIDAL VOLUME:: 450 RESP RATE:: 12 FIO2:: 70 PEEP:: 5 - Extremities/Vascular Does the Patient have a Central Venous Catheter?: Yes Insertion Site: Internal Jugular Vein Does the Patient need a Central Venous Catheter?: Yes Does the Patient have a Villanueva Catheter?: Yes Does the Patient need a Villanueva Catheter?: Yes Catheter Insertion Criteria: Need for accurate measurement of output in critically ill patient - Prophylaxis GI Prophylaxis GI: PPI - Prophylaxis DVT Prophylaxis DVT: Heparin SQ Assessment/Plan - Assessment and Plan (Free Text) Assessment: Patient is an 83 yo male w/ PMH of Alzheimer's disease, CAD, atrial fibrillation, hypertension, hypercholesterolemia, dementia admitted to ICU s/p intubated and cardiac arrest in field. CT head pending, initial trop negative. Dr. Dupont reviewed EKG and stated no code heart at this time. Neuro Intubated, Propfol drip, Versed drip (not running currently) CT head shows remote vs chronic infarction in frontal lobe Pulm Intubated and on ventilator with ET tube in place Cxray reviewed today- bilateral pulmonary edema- suction as needed for oral secretions CV Cardiac Arrest in field- rosc achieved EKG in field showed ST elevation, EKG in ED showed Afib w/ diffuse ST segment changes Heparin drip initiated as per cardio (ashley), Lopressor bid g tube; Further management of cardiac as per cardio Code Freeze continued- Tylenol 4 doses Echo completed- read pending / troponin elevated but downtrending GI Protonix; no active issues Endo Q6H accuchecks; hypoglycemic protocol; ISS Renal Lactate trending down Villanueva in place for strict Is/Os NS @ 150mls/hr ID no active issues ID following- further recs as per ID DVT ppx: SCDs, heparin GI ppx: protonix Disposition: Pending family discussion and cardiology recommendations PGY-1 [facility] d/w Dr. Santiago <Kwan Santiagoif M - Last Filed: 08/12/18 16:10> CCU Objective - Vital Signs / Intake & Output Vital Signs (Last 4 hours): Vital Signs Temp Pulse Resp BP Pulse Ox 08/12/18 14:00 91.2 F L 68 19 99/58 L 08/12/18 13:17 75 15 90/49 L 100 08/12/18 13:00 90.9 F L 67 16 90/49 L 08/12/18 12:47 67 15 111/75 98 08/12/18 12:25 66 18 99/57 L 95 Intake and Output (Last 8hrs): Intake & Output 08/12/18 08/12/18 08/12/18 06:59 14:59 22:59 Intake Total 1703.0 1396.5 0 Output Total 250 805 Balance 1453.0 591.5 0 Weight 178 lb Intake: IV 122 273 0 Intake, IV Amount 1581.0 1123.5 Left Hand 57.4 rt ij tlc distal port 65.5 73.5 rt ij tlc middle port 950 1050 rt ij tlc proximal port 508.1 Oral 0 Output: Urine 250 805 Urethral ([place]) 250 805 - Medications Active Medications: Active Medications Generic Name Dose Route Start Last Admin Trade Name Freq PRN Reason Stop Dose Admin Acetaminophen 975 mg 08/12/18 11:22 Tylenol 650mg/20.3ml Solution Ud PO Q6H PRN shivering Buspirone HCl 30 mg 08/12/18 15:30 Buspar PO 08/13/18 07:31 Q8H JESSE Dextrose 0 ml 08/11/18 15:29 Dextrose 50% Inj IV STAT PRN Hypoglycemia Protocol Protocol Dextrose 0 gm 08/11/18 15:29 Glutose 15 PO ONCE PRN Hypoglycemia Protocol Protocol Glucagon 0 mg 08/11/18 15:29 Glucagen Diagnostic Kit IM STAT PRN Hypoglycemia Protocol Protocol Dextrose 1,000 mls @ 0 mls/hr 08/11/18 15:29 Dextrose 5% In Water 1000 Ml IV .Q0M PRN Hypoglycemia Protocol Protocol Per Protocol Heparin Sodium/Sodium Chloride 25,000 units in 250 mls @ 8.165 mls/hr 08/11/18 17:33 08/12/18 15:15 Heparin 03410 Units/250ml 1/2 Normal Saline IV 9 units/kg/hr .Q24H PRN 6.124 mls/hr ADJUST RATE PER PROTOCOL Titration Protocol 12 UNITS/KG/HR Propofol 1,000 mg in 100 mls @ 2.041 mls/hr 08/11/18 19:35 08/12/18 14:03 Diprivan IV 0 mcg/kg/min .Q24H PRN 0 mls/hr TITRATE PER MD ORDER Titration Protocol 5 MCG/KG/MIN Midazolam HCl 100 mg/ Sodium 100 mls @ 1.36 mls/hr 08/11/18 20:30 08/12/18 02:00 Chloride IV 0 mg/kg/hr .Q24H JESSE 0 mls/hr Titration Protocol 0.02 MG/KG/HR Sodium Chloride 1,000 mls @ 150 mls/hr 08/12/18 01:00 08/12/18 10:43 Sodium Chloride 0.9% IV 150 mls/hr .Q6H40M JESSE Administration Insulin Human Regular 0 unit 08/11/18 16:30 08/12/18 11:30 Novolin R SC Not Given ACHS JESSE Protocol Metoprolol Tartrate 50 mg 08/11/18 18:00 08/12/18 10:43 Lopressor PO 50 mg BID JESSE Administration Pantoprazole Sodium 40 mg 08/11/18 15:30 08/12/18 10:42 Protonix Inj IVP 40 mg DAILY JESSE Administration - Patient Studies Lab Studies: Microbiology Studies 08/11/18 19:26 Urine Culture - Final Urine,Catheterized No Growth (<1,000 CFU/ML) Lab Studies 08/12/18 08/12/18 08/12/18 Range/Units 15:52 14:53 13:37 WBC (4.8-10.8) K/uL RBC (4.40-5.90) Mil/uL Hgb (12.0-18.0) g/dL Hct (35.0-51.0) % MCV (80.0-94.0) fL MCH (27.0-31.0) pg MCHC (33.0-37.0) g/dL RDW (11.5-14.5) % Plt Count (130-400) K/uL MPV (7.2-11.7) fL Neut % (Auto) (50.0-75.0) % Lymph % (Auto) (20.0-40.0) % [place] % (Auto) (0.0-10.0) % Eos % (Auto) (0.0-4.0) % Baso % (Auto) (0.0-2.0) % Neut # (Auto) (1.8-7.0) K/uL Lymph # (Auto) (1.0-4.3) K/uL [place] # (Auto) (0.0-0.8) K/uL Eos # (Auto) (0.0-0.7) K/uL Baso # (Auto) (0.0-0.2) K/uL Neutrophils % (Manual) (50-75) % Band Neutrophils % (0-2) % Lymphocytes % (Manual) (20-40) % Monocytes % (Manual) (0-10) % Platelet Estimate (NORMAL) PT 16.8 H (9.7-12.2) SECONDS INR 1.5 APTT 147 H* D (21-34) SECONDS Puncture Site pCO2 (35-45) mm/Hg pO2 (80-100) mm/Hg HCO3 (21-28) mmol/L ABG pH (7.35-7.45) ABG Total CO2 (22-28) mmol/L ABG O2 Saturation (95-98) % ABG Base Excess (-2.0-3.0) mmol/L Danny Test ABG Potassium (3.6-5.2) mmol/L A-a O2 Difference mm/Hg Respiratory Index Sodium (132-148) mmol/l Chloride (98-107) mmol/L Glucose (75-110) mg/dl Lactate (0.7-2.1) mmol/L Vent Mode Mechanical Rate FiO2 % Tidal Volume PEEP Potassium (3.6-5.2) mmol/L Carbon Dioxide (22-30) mmol/L Anion Gap (10-20) BUN (9-20) mg/dL Creatinine (0.8-1.5) mg/dL Est GFR ( Amer) Est GFR (Non-Af Amer) POC Glucose (mg/dL) 131 H 132 H (65-110) mg/dL Random Glucose (75-110) mg/dL Lactic Acid (0.7-2.1) mmol/L Calcium (8.6-10.4) mg/dl Phosphorus (2.5-4.5) mg/dL Magnesium (1.6-2.3) mg/dL Total Bilirubin (0.2-1.3) mg/dL AST (17-59) U/L ALT (21-72) U/L Alkaline Phosphatase (38-126) U/L Total Creatine Kinase (55-170) U/L CK-MB (Mass) (0.0-3.38) ng/mL Troponin I (0.00-0.120) ng/mL Total Protein (6.3-8.3) g/dL Albumin (3.5-5.0) g/dL Globulin (2.2-3.9) gm/dL Albumin/Globulin Ratio (1.0-2.1) Arterial Blood Potassium (3.6-5.2) mmol/L Urine Color (YELLOW) Urine Clarity (Clear) Urine pH (5.0-8.0) Ur Specific [place] (1.003-1.030) Urine Protein (NEGATIVE) mg/dL Urine Glucose (UA) (Normal) mg/dL Urine Ketones (NEGATIVE) mg/dL Urine Blood (NEGATIVE) Urine Nitrate (NEGATIVE) Urine Bilirubin (NEGATIVE) Urine Urobilinogen (0.2-1.0) mg/dL Ur Leukocyte Esterase (Negative) Florencio/uL Urine WBC (Auto) (0-5) /hpf Urine RBC (Auto) (0-3) /hpf Ur Squamous Epith Cells (0-5) /hpf Amorphous Sediment (<OCC) /ul Urine Bacteria (<OCC) Hyaline Casts (0-2) /lpf 08/12/18 08/12/18 08/12/18 Range/Units 13:35 12:24 11:06 WBC (4.8-10.8) K/uL RBC (4.40-5.90) Mil/uL Hgb (12.0-18.0) g/dL Hct (35.0-51.0) % MCV (80.0-94.0) fL MCH (27.0-31.0) pg MCHC (33.0-37.0) g/dL RDW (11.5-14.5) % Plt Count (130-400) K/uL MPV (7.2-11.7) fL Neut % (Auto) (50.0-75.0) % Lymph % (Auto) (20.0-40.0) % [place] % (Auto) (0.0-10.0) % Eos % (Auto) (0.0-4.0) % Baso % (Auto) (0.0-2.0) % Neut # (Auto) (1.8-7.0) K/uL Lymph # (Auto) (1.0-4.3) K/uL [place] # (Auto) (0.0-0.8) K/uL Eos # (Auto) (0.0-0.7) K/uL Baso # (Auto) (0.0-0.2) K/uL Neutrophils % (Manual) (50-75) % Band Neutrophils % (0-2) % Lymphocytes % (Manual) (20-40) % Monocytes % (Manual) (0-10) % Platelet Estimate (NORMAL) PT (9.7-12.2) SECONDS INR APTT (21-34) SECONDS Puncture Site pCO2 (35-45) mm/Hg pO2 (80-100) mm/Hg HCO3 (21-28) mmol/L ABG pH (7.35-7.45) ABG Total CO2 (22-28) mmol/L ABG O2 Saturation (95-98) % ABG Base Excess (-2.0-3.0) mmol/L Danny Test ABG Potassium (3.6-5.2) mmol/L A-a O2 Difference mm/Hg Respiratory Index Sodium (132-148) mmol/l Chloride (98-107) mmol/L Glucose (75-110) mg/dl Lactate (0.7-2.1) mmol/L Vent Mode Mechanical Rate FiO2 % Tidal Volume PEEP Potassium (3.6-5.2) mmol/L Carbon Dioxide (22-30) mmol/L Anion Gap (10-20) BUN (9-20) mg/dL Creatinine (0.8-1.5) mg/dL Est GFR ( Amer) Est GFR (Non-Af Amer) POC Glucose (mg/dL) 130 H 129 H 154 H (65-110) mg/dL Random Glucose (75-110) mg/dL Lactic Acid (0.7-2.1) mmol/L Calcium (8.6-10.4) mg/dl Phosphorus (2.5-4.5) mg/dL Magnesium (1.6-2.3) mg/dL Total Bilirubin (0.2-1.3) mg/dL AST (17-59) U/L ALT (21-72) U/L Alkaline Phosphatase (38-126) U/L Total Creatine Kinase (55-170) U/L CK-MB (Mass) (0.0-3.38) ng/mL Troponin I (0.00-0.120) ng/mL Total Protein (6.3-8.3) g/dL Albumin (3.5-5.0) g/dL Globulin (2.2-3.9) gm/dL Albumin/Globulin Ratio (1.0-2.1) Arterial Blood Potassium (3.6-5.2) mmol/L Urine Color (YELLOW) Urine Clarity (Clear) Urine pH (5.0-8.0) Ur Specific [place] (1.003-1.030) Urine Protein (NEGATIVE) mg/dL Urine Glucose (UA) (Normal) mg/dL Urine Ketones (NEGATIVE) mg/dL Urine Blood (NEGATIVE) Urine Nitrate (NEGATIVE) Urine Bilirubin (NEGATIVE) Urine Urobilinogen (0.2-1.0) mg/dL Ur Leukocyte Esterase (Negative) Florencio/uL Urine WBC (Auto) (0-5) /hpf Urine RBC (Auto) (0-3) /hpf Ur Squamous Epith Cells (0-5) /hpf Amorphous Sediment (<OCC) /ul Urine Bacteria (<OCC) Hyaline Casts (0-2) /lpf 08/12/18 08/12/18 08/12/18 Range/Units 10:28 09:25 09:24 WBC (4.8-10.8) K/uL RBC (4.40-5.90) Mil/uL Hgb (12.0-18.0) g/dL Hct (35.0-51.0) % MCV (80.0-94.0) fL MCH (27.0-31.0) pg MCHC (33.0-37.0) g/dL RDW (11.5-14.5) % Plt Count (130-400) K/uL MPV (7.2-11.7) fL Neut % (Auto) (50.0-75.0) % Lymph % (Auto) (20.0-40.0) % [place] % (Auto) (0.0-10.0) % Eos % (Auto) (0.0-4.0) % Baso % (Auto) (0.0-2.0) % Neut # (Auto) (1.8-7.0) K/uL Lymph # (Auto) (1.0-4.3) K/uL [place] # (Auto) (0.0-0.8) K/uL Eos # (Auto) (0.0-0.7) K/uL Baso # (Auto) (0.0-0.2) K/uL Neutrophils % (Manual) (50-75) % Band Neutrophils % (0-2) % Lymphocytes % (Manual) (20-40) % Monocytes % (Manual) (0-10) % Platelet Estimate (NORMAL) PT (9.7-12.2) SECONDS INR APTT (21-34) SECONDS Puncture Site pCO2 (35-45) mm/Hg pO2 (80-100) mm/Hg HCO3 (21-28) mmol/L ABG pH (7.35-7.45) ABG Total CO2 (22-28) mmol/L ABG O2 Saturation (95-98) % ABG Base Excess (-2.0-3.0) mmol/L Danny Test ABG Potassium (3.6-5.2) mmol/L A-a O2 Difference mm/Hg Respiratory Index Sodium 137 (132-148) mmol/l Chloride 108 H (98-107) mmol/L Glucose (75-110) mg/dl Lactate (0.7-2.1) mmol/L Vent Mode Mechanical Rate FiO2 % Tidal Volume PEEP Potassium 5.2 (3.6-5.2) mmol/L Carbon Dioxide 19 L (22-30) mmol/L Anion Gap 16 (10-20) BUN 27 H (9-20) mg/dL Creatinine 1.4 (0.8-1.5) mg/dL Est GFR ( Amer) 59 Est GFR (Non-Af Amer) 49 POC Glucose (mg/dL) 136 H 141 H (65-110) mg/dL Random Glucose 130 H (75-110) mg/dL Lactic Acid (0.7-2.1) mmol/L Calcium 7.3 L (8.6-10.4) mg/dl Phosphorus 4.8 H (2.5-4.5) mg/dL Magnesium 1.8 (1.6-2.3) mg/dL Total Bilirubin 0.3 (0.2-1.3) mg/dL AST 111 H (17-59) U/L ALT 66 (21-72) U/L Alkaline Phosphatase 65 (38-126) U/L Total Creatine Kinase (55-170) U/L CK-MB (Mass) (0.0-3.38) ng/mL Troponin I 2.2100 H* (0.00-0.120) ng/mL Total Protein 6.6 (6.3-8.3) g/dL Albumin 3.5 (3.5-5.0) g/dL Globulin 3.2 (2.2-3.9) gm/dL Albumin/Globulin Ratio 1.1 (1.0-2.1) Arterial Blood Potassium (3.6-5.2) mmol/L Urine Color (YELLOW) Urine Clarity (Clear) Urine pH (5.0-8.0) Ur Specific [place] (1.003-1.030) Urine Protein (NEGATIVE) mg/dL Urine Glucose (UA) (Normal) mg/dL Urine Ketones (NEGATIVE) mg/dL Urine Blood (NEGATIVE) Urine Nitrate (NEGATIVE) Urine Bilirubin (NEGATIVE) Urine Urobilinogen (0.2-1.0) mg/dL Ur Leukocyte Esterase (Negative) Florencio/uL Urine WBC (Auto) (0-5) /hpf Urine RBC (Auto) (0-3) /hpf Ur Squamous Epith Cells (0-5) /hpf Amorphous Sediment (<OCC) /ul Urine Bacteria (<OCC) Hyaline Casts (0-2) /lpf 08/12/18 08/12/18 08/12/18 Range/Units 09:24 09:24 08:42 WBC 16.2 H (4.8-10.8) K/uL RBC 3.84 L (4.40-5.90) Mil/uL Hgb 11.8 L (12.0-18.0) g/dL Hct 35.4 (35.0-51.0) % MCV 92.0 (80.0-94.0) fL MCH 30.6 (27.0-31.0) pg MCHC 33.2 (33.0-37.0) g/dL RDW 14.4 (11.5-14.5) % Plt Count 212 (130-400) K/uL MPV 7.8 (7.2-11.7) fL Neut % (Auto) 82.4 H (50.0-75.0) % Lymph % (Auto) 10.3 L (20.0-40.0) % [place] % (Auto) 7.1 (0.0-10.0) % Eos % (Auto) 0.0 (0.0-4.0) % Baso % (Auto) 0.2 (0.0-2.0) % Neut # (Auto) 13.3 H (1.8-7.0) K/uL Lymph # (Auto) 1.7 (1.0-4.3) K/uL [place] # (Auto) 1.2 H (0.0-0.8) K/uL Eos # (Auto) 0.0 (0.0-0.7) K/uL Baso # (Auto) 0.0 (0.0-0.2) K/uL Neutrophils % (Manual) (50-75) % Band Neutrophils % (0-2) % Lymphocytes % (Manual) (20-40) % Monocytes % (Manual) (0-10) % Platelet Estimate (NORMAL) PT 16.8 H (9.7-12.2) SECONDS INR 1.5 APTT Cancelled (21-34) SECONDS Puncture Site pCO2 (35-45) mm/Hg pO2 (80-100) mm/Hg HCO3 (21-28) mmol/L ABG pH (7.35-7.45) ABG Total CO2 (22-28) mmol/L ABG O2 Saturation (95-98) % ABG Base Excess (-2.0-3.0) mmol/L Danny Test ABG Potassium (3.6-5.2) mmol/L A-a O2 Difference mm/Hg Respiratory Index Sodium (132-148) mmol/l Chloride (98-107) mmol/L Glucose (75-110) mg/dl Lactate (0.7-2.1) mmol/L Vent Mode Mechanical Rate FiO2 % Tidal Volume PEEP Potassium (3.6-5.2) mmol/L Carbon Dioxide (22-30) mmol/L Anion Gap (10-20) BUN (9-20) mg/dL Creatinine (0.8-1.5) mg/dL Est GFR ( Amer) Est GFR (Non-Af Amer) POC Glucose (mg/dL) 143 H (65-110) mg/dL Random Glucose (75-110) mg/dL Lactic Acid (0.7-2.1) mmol/L Calcium (8.6-10.4) mg/dl Phosphorus (2.5-4.5) mg/dL Magnesium (1.6-2.3) mg/dL Total Bilirubin (0.2-1.3) mg/dL AST (17-59) U/L ALT (21-72) U/L Alkaline Phosphatase (38-126) U/L Total Creatine Kinase (55-170) U/L CK-MB (Mass) (0.0-3.38) ng/mL Troponin I (0.00-0.120) ng/mL Total Protein (6.3-8.3) g/dL Albumin (3.5-5.0) g/dL Globulin (2.2-3.9) gm/dL Albumin/Globulin Ratio (1.0-2.1) Arterial Blood Potassium (3.6-5.2) mmol/L Urine Color (YELLOW) Urine Clarity (Clear) Urine pH (5.0-8.0) Ur Specific [place] (1.003-1.030) Urine Protein (NEGATIVE) mg/dL Urine Glucose (UA) (Normal) mg/dL Urine Ketones (NEGATIVE) mg/dL Urine Blood (NEGATIVE) Urine Nitrate (NEGATIVE) Urine Bilirubin (NEGATIVE) Urine Urobilinogen (0.2-1.0) mg/dL Ur Leukocyte Esterase (Negative) Fl[place]io/uL Urine WBC (Auto) (0-5) /hpf Urine RBC (Auto) (0-3) /hpf Ur Squamous Epith Cells (0-5) /hpf Amorphous Sediment (<OCC) /ul Urine Bacteria (<OCC) Hyaline Casts (0-2) /lpf 08/12/18 08/12/18 08/12/18 Range/Units 07:03 06:34 06:29 WBC (4.8-10.8) K/uL RBC (4.40-5.90) Mil/uL Hgb (12.0-18.0) g/dL Hct (35.0-51.0) % MCV (80.0-94.0) fL MCH (27.0-31.0) pg MCHC (33.0-37.0) g/dL RDW (11.5-14.5) % Plt Count (130-400) K/uL MPV (7.2-11.7) fL Neut % (Auto) (50.0-75.0) % Lymph % (Auto) (20.0-40.0) % [place] % (Auto) (0.0-10.0) % Eos % (Auto) (0.0-4.0) % Baso % (Auto) (0.0-2.0) % Neut # (Auto) (1.8-7.0) K/uL Lymph # (Auto) (1.0-4.3) K/uL [place] # (Auto) (0.0-0.8) K/uL Eos # (Auto) (0.0-0.7) K/uL Baso # (Auto) (0.0-0.2) K/uL Neutrophils % (Manual) (50-75) % Band Neutrophils % (0-2) % Lymphocytes % (Manual) (20-40) % Monocytes % (Manual) (0-10) % Platelet Estimate (NORMAL) PT (9.7-12.2) SECONDS INR APTT (21-34) SECONDS Puncture Site pCO2 (35-45) mm/Hg pO2 (80-100) mm/Hg HCO3 (21-28) mmol/L ABG pH (7.35-7.45) ABG Total CO2 (22-28) mmol/L ABG O2 Saturation (95-98) % ABG Base Excess (-2.0-3.0) mmol/L Danny Test ABG Potassium (3.6-5.2) mmol/L A-a O2 Difference mm/Hg Respiratory Index Sodium 137 (132-148) mmol/l Chloride 110 H (98-107) mmol/L Glucose (75-110) mg/dl Lactate (0.7-2.1) mmol/L Vent Mode Mechanical Rate FiO2 % Tidal Volume PEEP Potassium 5.2 (3.6-5.2) mmol/L Carbon Dioxide 19 L (22-30) mmol/L Anion Gap 12 (10-20) BUN 27 H (9-20) mg/dL Creatinine 1.2 (0.8-1.5) mg/dL Est GFR ( Amer) > 60 Est GFR (Non-Af Amer) 58 POC Glucose (mg/dL) 148 H 145 H (65-110) mg/dL Random Glucose 125 H D (75-110) mg/dL Lactic Acid (0.7-2.1) mmol/L Calcium 7.1 L (8.6-10.4) mg/dl Phosphorus 4.2 (2.5-4.5) mg/dL Magnesium 1.9 (1.6-2.3) mg/dL Total Bilirubin 0.4 (0.2-1.3) mg/dL AST 115 H (17-59) U/L ALT 63 (21-72) U/L Alkaline Phosphatase 52 (38-126) U/L Total Creatine Kinase 1050 H (55-170) U/L CK-MB (Mass) 25.1 H (0.0-3.38) ng/mL Troponin I 2.3700 H* (0.00-0.120) ng/mL Total Protein 5.9 L (6.3-8.3) g/dL Albumin 3.0 L (3.5-5.0) g/dL Globulin 2.9 (2.2-3.9) gm/dL Albumin/Globulin Ratio 1.0 (1.0-2.1) Arterial Blood Potassium (3.6-5.2) mmol/L Urine Color (YELLOW) Urine Clarity (Clear) Urine pH (5.0-8.0) Ur Specific [place] (1.003-1.030) Urine Protein (NEGATIVE) mg/dL Urine Glucose (UA) (Normal) mg/dL Urine Ketones (NEGATIVE) mg/dL Urine Blood (NEGATIVE) Urine Nitrate (NEGATIVE) Urine Bilirubin (NEGATIVE) Urine Urobilinogen (0.2-1.0) mg/dL Ur Leukocyte Esterase (Negative) Florencio/uL Urine WBC (Auto) (0-5) /hpf Urine RBC (Auto) (0-3) /hpf Ur Squamous Epith Cells (0-5) /hpf Amorphous Sediment (<OCC) /ul Urine Bacteria (<OCC) Hyaline Casts (0-2) /lpf 08/12/18 08/12/18 08/12/18 Range/Units 06:29 04:33 04:25 WBC 12.9 H (4.8-10.8) K/uL RBC 3.60 L (4.40-5.90) Mil/uL Hgb 11.0 L (12.0-18.0) g/dL Hct 33.3 L (35.0-51.0) % MCV 92.4 (80.0-94.0) fL MCH 30.7 (27.0-31.0) pg MCHC 33.2 (33.0-37.0) g/dL RDW 14.5 (11.5-14.5) % Plt Count 197 (130-400) K/uL MPV 8.7 (7.2-11.7) fL Neut % (Auto) 81.4 H (50.0-75.0) % Lymph % (Auto) 10.5 L (20.0-40.0) % [place] % (Auto) 8.0 (0.0-10.0) % Eos % (Auto) 0.0 (0.0-4.0) % Baso % (Auto) 0.1 (0.0-2.0) % Neut # (Auto) 10.5 H (1.8-7.0) K/uL Lymph # (Auto) 1.4 (1.0-4.3) K/uL [place] # (Auto) 1.0 H (0.0-0.8) K/uL Eos # (Auto) 0.0 (0.0-0.7) K/uL Baso # (Auto) 0.0 (0.0-0.2) K/uL Neutrophils % (Manual) (50-75) % Band Neutrophils % (0-2) % Lymphocytes % (Manual) (20-40) % Monocytes % (Manual) (0-10) % Platelet Estimate (NORMAL) PT (9.7-12.2) SECONDS INR APTT (21-34) SECONDS Puncture Site Rr pCO2 40 (35-45) mm/Hg pO2 177 H (80-100) mm/Hg HCO3 17.3 L (21-28) mmol/L ABG pH 7.24 L (7.35-7.45) ABG Total CO2 18.3 L (22-28) mmol/L ABG O2 Saturation 100.3 H (95-98) % ABG Base Excess -9.8 L (-2.0-3.0) mmol/L Danny Test Pos ABG Potassium 4.7 (3.6-5.2) mmol/L A-a O2 Difference 272.0 mm/Hg Respiratory Index 1.5 Sodium 138.0 (132-148) mmol/l Chloride 110.0 H (98-107) mmol/L Glucose 130 H (75-110) mg/dl Lactate 2.6 H (0.7-2.1) mmol/L Vent Mode Prvc Mechanical Rate 12 FiO2 70.0 % Tidal Volume 500 PEEP 5 Potassium (3.6-5.2) mmol/L Carbon Dioxide (22-30) mmol/L Anion Gap (10-20) BUN (9-20) mg/dL Creatinine (0.8-1.5) mg/dL Est GFR ( Amer) Est GFR (Non-Af Amer) POC Glucose (mg/dL) 152 H (65-110) mg/dL Random Glucose (75-110) mg/dL Lactic Acid (0.7-2.1) mmol/L Calcium (8.6-10.4) mg/dl Phosphorus (2.5-4.5) mg/dL Magnesium (1.6-2.3) mg/dL Total Bilirubin (0.2-1.3) mg/dL AST (17-59) U/L ALT (21-72) U/L Alkaline Phosphatase (38-126) U/L Total Creatine Kinase (55-170) U/L CK-MB (Mass) (0.0-3.38) ng/mL Troponin I (0.00-0.120) ng/mL Total Protein (6.3-8.3) g/dL Albumin (3.5-5.0) g/dL Globulin (2.2-3.9) gm/dL Albumin/Globulin Ratio (1.0-2.1) Arterial Blood Potassium 4.7 (3.6-5.2) mmol/L Urine Color (YELLOW) Urine Clarity (Clear) Urine pH (5.0-8.0) Ur Specific [place] (1.003-1.030) Urine Protein (NEGATIVE) mg/dL Urine Glucose (UA) (Normal) mg/dL Urine Ketones (NEGATIVE) mg/dL Urine Blood (NEGATIVE) Urine Nitrate (NEGATIVE) Urine Bilirubin (NEGATIVE) Urine Urobilinogen (0.2-1.0) mg/dL Ur Leukocyte Esterase (Negative) Florencio/uL Urine WBC (Auto) (0-5) /hpf Urine RBC (Auto) (0-3) /hpf Ur Squamous Epith Cells (0-5) /hpf Amorphous Sediment (<OCC) /ul Urine Bacteria (<OCC) Hyaline Casts (0-2) /lpf 08/12/18 08/12/18 08/12/18 Range/Units 04:01 03:17 02:52 WBC (4.8-10.8) K/uL RBC (4.40-5.90) Mil/uL Hgb (12.0-18.0) g/dL Hct (35.0-51.0) % MCV (80.0-94.0) fL MCH (27.0-31.0) pg MCHC (33.0-37.0) g/dL RDW (11.5-14.5) % Plt Count (130-400) K/uL MPV (7.2-11.7) fL Neut % (Auto) (50.0-75.0) % Lymph % (Auto) (20.0-40.0) % [place] % (Auto) (0.0-10.0) % Eos % (Auto) (0.0-4.0) % Baso % (Auto) (0.0-2.0) % Neut # (Auto) (1.8-7.0) K/uL Lymph # (Auto) (1.0-4.3) K/uL [place] # (Auto) (0.0-0.8) K/uL Eos # (Auto) (0.0-0.7) K/uL Baso # (Auto) (0.0-0.2) K/uL Neutrophils % (Manual) (50-75) % Band Neutrophils % (0-2) % Lymphocytes % (Manual) (20-40) % Monocytes % (Manual) (0-10) % Platelet Estimate (NORMAL) PT 17.8 H (9.7-12.2) SECONDS INR 1.6 D APTT 84 H D (21-34) SECONDS Puncture Site pCO2 (35-45) mm/Hg pO2 (80-100) mm/Hg HCO3 (21-28) mmol/L ABG pH (7.35-7.45) ABG Total CO2 (22-28) mmol/L ABG O2 Saturation (95-98) % ABG Base Excess (-2.0-3.0) mmol/L Danny Test ABG Potassium (3.6-5.2) mmol/L A-a O2 Difference mm/Hg Respiratory Index Sodium (132-148) mmol/l Chloride (98-107) mmol/L Glucose (75-110) mg/dl Lactate (0.7-2.1) mmol/L Vent Mode Mechanical Rate FiO2 % Tidal Volume PEEP Potassium (3.6-5.2) mmol/L Carbon Dioxide (22-30) mmol/L Anion Gap (10-20) BUN (9-20) mg/dL Creatinine (0.8-1.5) mg/dL Est GFR ( Amer) Est GFR (Non-Af Amer) POC Glucose (mg/dL) 183 H 176 H (65-110) mg/dL Random Glucose (75-110) mg/dL Lactic Acid (0.7-2.1) mmol/L Calcium (8.6-10.4) mg/dl Phosphorus (2.5-4.5) mg/dL Magnesium (1.6-2.3) mg/dL Total Bilirubin (0.2-1.3) mg/dL AST (17-59) U/L ALT (21-72) U/L Alkaline Phosphatase (38-126) U/L Total Creatine Kinase (55-170) U/L CK-MB (Mass) (0.0-3.38) ng/mL Troponin I (0.00-0.120) ng/mL Total Protein (6.3-8.3) g/dL Albumin (3.5-5.0) g/dL Globulin (2.2-3.9) gm/dL Albumin/Globulin Ratio (1.0-2.1) Arterial Blood Potassium (3.6-5.2) mmol/L Urine Color (YELLOW) Urine Clarity (Clear) Urine pH (5.0-8.0) Ur Specific [place] (1.003-1.030) Urine Protein (NEGATIVE) mg/dL Urine Glucose (UA) (Normal) mg/dL Urine Ketones (NEGATIVE) mg/dL Urine Blood (NEGATIVE) Urine Nitrate (NEGATIVE) Urine Bilirubin (NEGATIVE) Urine Urobilinogen (0.2-1.0) mg/dL Ur Leukocyte Esterase (Negative) Flore[place]io/uL Urine WBC (Auto) (0-5) /hpf Urine RBC (Auto) (0-3) /hpf Ur Squamous Epith Cells (0-5) /hpf Amorphous Sediment (<OCC) /ul Urine Bacteria (<OCC) Hyaline Casts (0-2) /lpf 08/12/18 08/12/18 08/11/18 Range/Units 02:31 01:11 23:55 WBC (4.8-10.8) K/uL RBC (4.40-5.90) Mil/uL Hgb (12.0-18.0) g/dL Hct (35.0-51.0) % MCV (80.0-94.0) fL MCH (27.0-31.0) pg MCHC (33.0-37.0) g/dL RDW (11.5-14.5) % Plt Count (130-400) K/uL MPV (7.2-11.7) fL Neut % (Auto) (50.0-75.0) % Lymph % (Auto) (20.0-40.0) % [place] % (Auto) (0.0-10.0) % Eos % (Auto) (0.0-4.0) % Baso % (Auto) (0.0-2.0) % Neut # (Auto) (1.8-7.0) K/uL Lymph # (Auto) (1.0-4.3) K/uL [place] # (Auto) (0.0-0.8) K/uL Eos # (Auto) (0.0-0.7) K/uL Baso # (Auto) (0.0-0.2) K/uL Neutrophils % (Manual) (50-75) % Band Neutrophils % (0-2) % Lymphocytes % (Manual) (20-40) % Monocytes % (Manual) (0-10) % Platelet Estimate (NORMAL) PT (9.7-12.2) SECONDS INR APTT (21-34) SECONDS Puncture Site pCO2 (35-45) mm/Hg pO2 (80-100) mm/Hg HCO3 (21-28) mmol/L ABG pH (7.35-7.45) ABG Total CO2 (22-28) mmol/L ABG O2 Saturation (95-98) % ABG Base Excess (-2.0-3.0) mmol/L Danny Test ABG Potassium (3.6-5.2) mmol/L A-a O2 Difference mm/Hg Respiratory Index Sodium (132-148) mmol/l Chloride (98-107) mmol/L Glucose (75-110) mg/dl Lactate (0.7-2.1) mmol/L Vent Mode Mechanical Rate FiO2 % Tidal Volume PEEP Potassium (3.6-5.2) mmol/L Carbon Dioxide (22-30) mmol/L Anion Gap (10-20) BUN (9-20) mg/dL Creatinine (0.8-1.5) mg/dL Est GFR ( Amer) Est GFR (Non-Af Amer) POC Glucose (mg/dL) 190 H 181 H 231 H (65-110) mg/dL Random Glucose (75-110) mg/dL Lactic Acid (0.7-2.1) mmol/L Calcium (8.6-10.4) mg/dl Phosphorus (2.5-4.5) mg/dL Magnesium (1.6-2.3) mg/dL Total Bilirubin (0.2-1.3) mg/dL AST (17-59) U/L ALT (21-72) U/L Alkaline Phosphatase (38-126) U/L Total Creatine Kinase (55-170) U/L CK-MB (Mass) (0.0-3.38) ng/mL Troponin I (0.00-0.120) ng/mL Total Protein (6.3-8.3) g/dL Albumin (3.5-5.0) g/dL Globulin (2.2-3.9) gm/dL Albumin/Globulin Ratio (1.0-2.1) Arterial Blood Potassium (3.6-5.2) mmol/L Urine Color (YELLOW) Urine Clarity (Clear) Urine pH (5.0-8.0) Ur Specific [place] (1.003-1.030) Urine Protein (NEGATIVE) mg/dL Urine Glucose (UA) (Normal) mg/dL Urine Ketones (NEGATIVE) mg/dL Urine Blood (NEGATIVE) Urine Nitrate (NEGATIVE) Urine Bilirubin (NEGATIVE) Urine Urobilinogen (0.2-1.0) mg/dL Ur Leukocyte Esterase (Negative) Flore[place]io/uL Urine WBC (Auto) (0-5) /hpf Urine RBC (Auto) (0-3) /hpf Ur Squamous Epith Cells (0-5) /hpf Amorphous Sediment (<OCC) /ul Urine Bacteria (<OCC) Hyaline Casts (0-2) /lpf 08/11/18 08/11/18 08/11/18 Range/Units 23:18 22:50 22:50 WBC (4.8-10.8) K/uL RBC (4.40-5.90) Mil/uL Hgb (12.0-18.0) g/dL Hct (35.0-51.0) % MCV (80.0-94.0) fL MCH (27.0-31.0) pg MCHC (33.0-37.0) g/dL RDW (11.5-14.5) % Plt Count (130-400) K/uL MPV (7.2-11.7) fL Neut % (Auto) (50.0-75.0) % Lymph % (Auto) (20.0-40.0) % [place] % (Auto) (0.0-10.0) % Eos % (Auto) (0.0-4.0) % Baso % (Auto) (0.0-2.0) % Neut # (Auto) (1.8-7.0) K/uL Lymph # (Auto) (1.0-4.3) K/uL [place] # (Auto) (0.0-0.8) K/uL Eos # (Auto) (0.0-0.7) K/uL Baso # (Auto) (0.0-0.2) K/uL Neutrophils % (Manual) (50-75) % Band Neutrophils % (0-2) % Lymphocytes % (Manual) (20-40) % Monocytes % (Manual) (0-10) % Platelet Estimate (NORMAL) PT (9.7-12.2) SECONDS INR APTT (21-34) SECONDS Puncture Site pCO2 (35-45) mm/Hg pO2 (80-100) mm/Hg HCO3 (21-28) mmol/L ABG pH (7.35-7.45) ABG Total CO2 (22-28) mmol/L ABG O2 Saturation (95-98) % ABG Base Excess (-2.0-3.0) mmol/L Danny Test ABG Potassium (3.6-5.2) mmol/L A-a O2 Difference mm/Hg Respiratory Index Sodium 136 (132-148) mmol/l Chloride 108 H (98-107) mmol/L Glucose (75-110) mg/dl Lactate (0.7-2.1) mmol/L Vent Mode Mechanical Rate FiO2 % Tidal Volume PEEP Potassium 4.8 (3.6-5.2) mmol/L Carbon Dioxide 19 L (22-30) mmol/L Anion Gap 14 (10-20) BUN 25 H (9-20) mg/dL Creatinine 1.2 (0.8-1.5) mg/dL Est GFR ( Amer) > 60 Est GFR (Non-Af Amer) 58 POC Glucose (mg/dL) 206 H (65-110) mg/dL Random Glucose 192 H (75-110) mg/dL Lactic Acid 3.7 H (0.7-2.1) mmol/L Calcium 7.7 L (8.6-10.4) mg/dl Phosphorus 6.4 H (2.5-4.5) mg/dL Magnesium 1.9 (1.6-2.3) mg/dL Total Bilirubin 0.4 (0.2-1.3) mg/dL AST 110 H (17-59) U/L ALT 73 H (21-72) U/L Alkaline Phosphatase 74 (38-126) U/L Total Creatine Kinase (55-170) U/L CK-MB (Mass) (0.0-3.38) ng/mL Troponin I (0.00-0.120) ng/mL Total Protein 6.6 (6.3-8.3) g/dL Albumin 3.4 L (3.5-5.0) g/dL Globulin 3.2 (2.2-3.9) gm/dL Albumin/Globulin Ratio 1.1 (1.0-2.1) Arterial Blood Potassium (3.6-5.2) mmol/L Urine Color (YELLOW) Urine Clarity (Clear) Urine pH (5.0-8.0) Ur Specific [place] (1.003-1.030) Urine Protein (NEGATIVE) mg/dL Urine Glucose (UA) (Normal) mg/dL Urine Ketones (NEGATIVE) mg/dL Urine Blood (NEGATIVE) Urine Nitrate (NEGATIVE) Urine Bilirubin (NEGATIVE) Urine Urobilinogen (0.2-1.0) mg/dL Ur Leukocyte Esterase (Negative) Flore[place]io/uL Urine WBC (Auto) (0-5) /hpf Urine RBC (Auto) (0-3) /hpf Ur Squamous Epith Cells (0-5) /hpf Amorphous Sediment (<OCC) /ul Urine Bacteria (<OCC) Hyaline Casts (0-2) /lpf 08/11/18 08/11/18 08/11/18 Range/Units 22:50 22:10 21:19 WBC 14.8 H D (4.8-10.8) K/uL RBC 3.94 L (4.40-5.90) Mil/uL Hgb 11.9 L (12.0-18.0) g/dL Hct 36.0 (35.0-51.0) % MCV 91.3 (80.0-94.0) fL MCH 30.2 (27.0-31.0) pg MCHC 33.1 (33.0-37.0) g/dL RDW 14.0 (11.5-14.5) % Plt Count 222 (130-400) K/uL MPV 7.6 (7.2-11.7) fL Neut % (Auto) 91.6 H (50.0-75.0) % Lymph % (Auto) 4.0 L (20.0-40.0) % [place] % (Auto) 4.1 (0.0-10.0) % Eos % (Auto) 0.0 (0.0-4.0) % Baso % (Auto) 0.3 (0.0-2.0) % Neut # (Auto) 13.6 H (1.8-7.0) K/uL Lymph # (Auto) 0.6 L (1.0-4.3) K/uL [place] # (Auto) 0.6 (0.0-0.8) K/uL Eos # (Auto) 0.0 (0.0-0.7) K/uL Baso # (Auto) 0.0 (0.0-0.2) K/uL Neutrophils % (Manual) 88 H (50-75) % Band Neutrophils % 4 H (0-2) % Lymphocytes % (Manual) 4 L (20-40) % Monocytes % (Manual) 4 (0-10) % Platelet Estimate Normal (NORMAL) PT (9.7-12.2) SECONDS INR APTT (21-34) SECONDS Puncture Site pCO2 (35-45) mm/Hg pO2 (80-100) mm/Hg HCO3 (21-28) mmol/L ABG pH (7.35-7.45) ABG Total CO2 (22-28) mmol/L ABG O2 Saturation (95-98) % ABG Base Excess (-2.0-3.0) mmol/L Danny Test ABG Potassium (3.6-5.2) mmol/L A-a O2 Difference mm/Hg Respiratory Index Sodium (132-148) mmol/l Chloride (98-107) mmol/L Glucose (75-110) mg/dl Lactate (0.7-2.1) mmol/L Vent Mode Mechanical Rate FiO2 % Tidal Volume PEEP Potassium (3.6-5.2) mmol/L Carbon Dioxide (22-30) mmol/L Anion Gap (10-20) BUN (9-20) mg/dL Creatinine (0.8-1.5) mg/dL Est GFR ( Amer) Est GFR (Non-Af Amer) POC Glucose (mg/dL) 217 H 218 H (65-110) mg/dL Random Glucose (75-110) mg/dL Lactic Acid (0.7-2.1) mmol/L Calcium (8.6-10.4) mg/dl Phosphorus (2.5-4.5) mg/dL Magnesium (1.6-2.3) mg/dL Total Bilirubin (0.2-1.3) mg/dL AST (17-59) U/L ALT (21-72) U/L Alkaline Phosphatase (38-126) U/L Total Creatine Kinase (55-170) U/L CK-MB (Mass) (0.0-3.38) ng/mL Troponin I (0.00-0.120) ng/mL Total Protein (6.3-8.3) g/dL Albumin (3.5-5.0) g/dL Globulin (2.2-3.9) gm/dL Albumin/Globulin Ratio (1.0-2.1) Arterial Blood Potassium (3.6-5.2) mmol/L Urine Color (YELLOW) Urine Clarity (Clear) Urine pH (5.0-8.0) Ur Specific [place] (1.003-1.030) Urine Protein (NEGATIVE) mg/dL Urine Glucose (UA) (Normal) mg/dL Urine Ketones (NEGATIVE) mg/dL Urine Blood (NEGATIVE) Urine Nitrate (NEGATIVE) Urine Bilirubin (NEGATIVE) Urine Urobilinogen (0.2-1.0) mg/dL Ur Leukocyte Esterase (Negative) [place]/uL Urine WBC (Auto) (0-5) /hpf Urine RBC (Auto) (0-3) /hpf Ur Squamous Epith Cells (0-5) /hpf Amorphous Sediment (<OCC) /ul Urine Bacteria (<OCC) Hyaline Casts (0-2) /lpf 08/11/18 08/11/18 08/11/18 Range/Units 20:31 19:26 18:59 WBC (4.8-10.8) K/uL RBC (4.40-5.90) Mil/uL Hgb (12.0-18.0) g/dL Hct (35.0-51.0) % MCV (80.0-94.0) fL MCH (27.0-31.0) pg MCHC (33.0-37.0) g/dL RDW (11.5-14.5) % Plt Count (130-400) K/uL MPV (7.2-11.7) fL Neut % (Auto) (50.0-75.0) % Lymph % (Auto) (20.0-40.0) % [place] % (Auto) (0.0-10.0) % Eos % (Auto) (0.0-4.0) % Baso % (Auto) (0.0-2.0) % Neut # (Auto) (1.8-7.0) K/uL Lymph # (Auto) (1.0-4.3) K/uL [place] # (Auto) (0.0-0.8) K/uL Eos # (Auto) (0.0-0.7) K/uL Baso # (Auto) (0.0-0.2) K/uL Neutrophils % (Manual) (50-75) % Band Neutrophils % (0-2) % Lymphocytes % (Manual) (20-40) % Monocytes % (Manual) (0-10) % Platelet Estimate (NORMAL) PT (9.7-12.2) SECONDS INR APTT (21-34) SECONDS Puncture Site Lr pCO2 39 (35-45) mm/Hg pO2 134 H (80-100) mm/Hg HCO3 16.3 L (21-28) mmol/L ABG pH 7.22 L (7.35-7.45) ABG Total CO2 17.2 L (22-28) mmol/L ABG O2 Saturation 99.3 H (95-98) % ABG Base Excess -11.1 L (-2.0-3.0) mmol/L Danny Test Unable ABG Potassium 3.7 (3.6-5.2) mmol/L A-a O2 Difference 316.0 mm/Hg Respiratory Index 2.4 Sodium 142.0 (132-148) mmol/l Chloride 113.0 H (98-107) mmol/L Glucose 174 H (75-110) mg/dl Lactate 3.4 H (0.7-2.1) mmol/L Vent Mode Prvc Mechanical Rate 12 FiO2 70.0 % Tidal Volume 500 PEEP 5 Potassium (3.6-5.2) mmol/L Carbon Dioxide (22-30) mmol/L Anion Gap (10-20) BUN (9-20) mg/dL Creatinine (0.8-1.5) mg/dL Est GFR ( Amer) Est GFR (Non-Af Amer) POC Glucose (mg/dL) 248 H (65-110) mg/dL Random Glucose (75-110) mg/dL Lactic Acid (0.7-2.1) mmol/L Calcium (8.6-10.4) mg/dl Phosphorus (2.5-4.5) mg/dL Magnesium (1.6-2.3) mg/dL Total Bilirubin (0.2-1.3) mg/dL AST (17-59) U/L ALT (21-72) U/L Alkaline Phosphatase (38-126) U/L Total Creatine Kinase (55-170) U/L CK-MB (Mass) (0.0-3.38) ng/mL Troponin I (0.00-0.120) ng/mL Total Protein (6.3-8.3) g/dL Albumin (3.5-5.0) g/dL Globulin (2.2-3.9) gm/dL Albumin/Globulin Ratio (1.0-2.1) Arterial Blood Potassium 3.7 (3.6-5.2) mmol/L Urine Color Yellow (YELLOW) Urine Clarity Hazy (Clear) Urine pH 5.0 (5.0-8.0) Ur Specific [place] 1.019 (1.003-1.030) Urine Protein 3+ H (NEGATIVE) mg/dL Urine Glucose (UA) Normal (Normal) mg/dL Urine Ketones Negative (NEGATIVE) mg/dL Urine Blood 2+ H (NEGATIVE) Urine Nitrate Negative (NEGATIVE) Urine Bilirubin Negative (NEGATIVE) Urine Urobilinogen Normal (0.2-1.0) mg/dL Ur Leukocyte Esterase Neg (Negative) [place]/uL Urine WBC (Auto) 8 H (0-5) /hpf Urine RBC (Auto) 6 H (0-3) /hpf Ur Squamous Epith Cells 1 (0-5) /hpf Amorphous Sediment Moderate H (<OCC) /ul Urine Bacteria Rare (<OCC) Hyaline Casts 6-10 H (0-2) /lpf 08/11/18 Range/Units 17:04 WBC (4.8-10.8) K/uL RBC (4.40-5.90) Mil/uL Hgb (12.0-18.0) g/dL Hct (35.0-51.0) % MCV (80.0-94.0) fL MCH (27.0-31.0) pg MCHC (33.0-37.0) g/dL RDW (11.5-14.5) % Plt Count (130-400) K/uL MPV (7.2-11.7) fL Neut % (Auto) (50.0-75.0) % Lymph % (Auto) (20.0-40.0) % [place] % (Auto) (0.0-10.0) % Eos % (Auto) (0.0-4.0) % Baso % (Auto) (0.0-2.0) % Neut # (Auto) (1.8-7.0) K/uL Lymph # (Auto) (1.0-4.3) K/uL [place] # (Auto) (0.0-0.8) K/uL Eos # (Auto) (0.0-0.7) K/uL Baso # (Auto) (0.0-0.2) K/uL Neutrophils % (Manual) (50-75) % Band Neutrophils % (0-2) % Lymphocytes % (Manual) (20-40) % Monocytes % (Manual) (0-10) % Platelet Estimate (NORMAL) PT (9.7-12.2) SECONDS INR APTT (21-34) SECONDS Puncture Site pCO2 (35-45) mm/Hg pO2 (80-100) mm/Hg HCO3 (21-28) mmol/L ABG pH (7.35-7.45) ABG Total CO2 (22-28) mmol/L ABG O2 Saturation (95-98) % ABG Base Excess (-2.0-3.0) mmol/L Danny Test ABG Potassium (3.6-5.2) mmol/L A-a O2 Difference mm/Hg Respiratory Index Sodium (132-148) mmol/l Chloride (98-107) mmol/L Glucose (75-110) mg/dl Lactate (0.7-2.1) mmol/L Vent Mode Mechanical Rate FiO2 % Tidal Volume PEEP Potassium (3.6-5.2) mmol/L Carbon Dioxide (22-30) mmol/L Anion Gap (10-20) BUN (9-20) mg/dL Creatinine (0.8-1.5) mg/dL Est GFR ( Amer) Est GFR (Non-Af Amer) POC Glucose (mg/dL) 161 H (65-110) mg/dL Random Glucose (75-110) mg/dL Lactic Acid (0.7-2.1) mmol/L Calcium (8.6-10.4) mg/dl Phosphorus (2.5-4.5) mg/dL Magnesium (1.6-2.3) mg/dL Total Bilirubin (0.2-1.3) mg/dL AST (17-59) U/L ALT (21-72) U/L Alkaline Phosphatase (38-126) U/L Total Creatine Kinase (55-170) U/L CK-MB (Mass) (0.0-3.38) ng/mL Troponin I (0.00-0.120) ng/mL Total Protein (6.3-8.3) g/dL Albumin (3.5-5.0) g/dL Globulin (2.2-3.9) gm/dL Albumin/Globulin Ratio (1.0-2.1) Arterial Blood Potassium (3.6-5.2) mmol/L Urine Color (YELLOW) Urine Clarity (Clear) Urine pH (5.0-8.0) Ur Specific [place] (1.003-1.030) Urine Protein (NEGATIVE) mg/dL Urine Glucose (UA) (Normal) mg/dL Urine Ketones (NEGATIVE) mg/dL Urine Blood (NEGATIVE) Urine Nitrate (NEGATIVE) Urine Bilirubin (NEGATIVE) Urine Urobilinogen (0.2-1.0) mg/dL Ur Leukocyte Esterase (Negative) [place]/uL Urine WBC (Auto) (0-5) /hpf Urine RBC (Auto) (0-3) /hpf Ur Squamous Epith Cells (0-5) /hpf Amorphous Sediment (<OCC) /ul Urine Bacteria (<OCC) Hyaline Casts (0-2) /lpf Laboratory Results - last 24 hr 08/11/18 08/11/18 08/11/18 17:04 18:59 19:26 WBC RBC Hgb Hct MCV MCH MCHC RDW Plt Count MPV Neut % (Auto) Lymph % (Auto) [place] % (Auto) Eos % (Auto) Baso % (Auto) Neut # (Auto) Lymph # (Auto) [place] # (Auto) Eos # (Auto) Baso # (Auto) Neutrophils % (Manual) Band Neutrophils % Lymphocytes % (Manual) Monocytes % (Manual) Platelet Estimate PT INR APTT Puncture Site Lr pCO2 39 pO2 134 H HCO3 16.3 L ABG pH 7.22 L ABG Total CO2 17.2 L ABG O2 Saturation 99.3 H ABG Base Excess -11.1 L Danny Test Unable ABG Potassium 3.7 A-a O2 Difference 316.0 Respiratory Index 2.4 Sodium 142.0 Chloride 113.0 H Glucose 174 H Lactate 3.4 H Vent Mode Prvc Mechanical Rate 12 FiO2 70.0 Tidal Volume 500 PEEP 5 Potassium Carbon Dioxide Anion Gap BUN Creatinine Est GFR ( Amer) Est GFR (Non-Af Amer) POC Glucose (mg/dL) 161 H Random Glucose Lactic Acid Calcium Phosphorus Magnesium Total Bilirubin AST ALT Alkaline Phosphatase Total Creatine Kinase CK-MB (Mass) Troponin I Total Protein Albumin Globulin Albumin/Globulin Ratio Arterial Blood Potassium 3.7 Urine Color Yellow Urine Clarity Hazy Urine pH 5.0 Ur Specific [place] 1.019 Urine Protein 3+ H Urine Glucose (UA) Normal Urine Ketones Negative Urine Blood 2+ H Urine Nitrate Negative Urine Bilirubin Negative Urine Urobilinogen Normal Ur Leukocyte Esterase Neg Urine WBC (Auto) 8 H Urine RBC (Auto) 6 H Ur Squamous Epith Cells 1 Amorphous Sediment Moderate H Urine Bacteria Rare Hyaline Casts 6-10 H 08/11/18 08/11/18 08/11/18 20:31 21:19 22:10 WBC RBC Hgb Hct MCV MCH MCHC RDW Plt Count MPV Neut % (Auto) Lymph % (Auto) [place] % (Auto) Eos % (Auto) Baso % (Auto) Neut # (Auto) Lymph # (Auto) [place] # (Auto) Eos # (Auto) Baso # (Auto) Neutrophils % (Manual) Band Neutrophils % Lymphocytes % (Manual) Monocytes % (Manual) Platelet Estimate PT INR APTT Puncture Site pCO2 pO2 HCO3 ABG pH ABG Total CO2 ABG O2 Saturation ABG Base Excess Danny Test ABG Potassium A-a O2 Difference Respiratory Index Sodium Chloride Glucose Lactate Vent Mode Mechanical Rate FiO2 Tidal Volume PEEP Potassium Carbon Dioxide Anion Gap BUN Creatinine Est GFR ( Amer) Est GFR (Non-Af Amer) POC Glucose (mg/dL) 248 H 218 H 217 H Random Glucose Lactic Acid Calcium Phosphorus Magnesium Total Bilirubin AST ALT Alkaline Phosphatase Total Creatine Kinase CK-MB (Mass) Troponin I Total Protein Albumin Globulin Albumin/Globulin Ratio Arterial Blood Potassium Urine Color Urine Clarity Urine pH Ur Specific [place] Urine Protein Urine Glucose (UA) Urine Ketones Urine Blood Urine Nitrate Urine Bilirubin Urine Urobilinogen Ur Leukocyte Esterase Urine WBC (Auto) Urine RBC (Auto) Ur Squamous Epith Cells Amorphous Sediment Urine Bacteria Hyaline Casts 08/11/18 08/11/18 08/11/18 22:50 22:50 22:50 WBC 14.8 H D RBC 3.94 L Hgb 11.9 L Hct 36.0 MCV 91.3 MCH 30.2 MCHC 33.1 RDW 14.0 Plt Count 222 MPV 7.6 Neut % (Auto) 91.6 H Lymph % (Auto) 4.0 L [place] % (Auto) 4.1 Eos % (Auto) 0.0 Baso % (Auto) 0.3 Neut # (Auto) 13.6 H Lymph # (Auto) 0.6 L [place] # (Auto) 0.6 Eos # (Auto) 0.0 Baso # (Auto) 0.0 Neutrophils % (Manual) 88 H Band Neutrophils % 4 H Lymphocytes % (Manual) 4 L Monocytes % (Manual) 4 Platelet Estimate Normal PT INR APTT Puncture Site pCO2 pO2 HCO3 ABG pH ABG Total CO2 ABG O2 Saturation ABG Base Excess Danny Test ABG Potassium A-a O2 Difference Respiratory Index Sodium 136 Chloride 108 H Glucose Lactate Vent Mode Mechanical Rate FiO2 Tidal Volume PEEP Potassium 4.8 Carbon Dioxide 19 L Anion Gap 14 BUN 25 H Creatinine 1.2 Est GFR ( Amer) > 60 Est GFR (Non-Af Amer) 58 POC Glucose (mg/dL) Random Glucose 192 H Lactic Acid 3.7 H Calcium 7.7 L Phosphorus 6.4 H Magnesium 1.9 Total Bilirubin 0.4 AST 110 H ALT 73 H Alkaline Phosphatase 74 Total Creatine Kinase CK-MB (Mass) Troponin I Total Protein 6.6 Albumin 3.4 L Globulin 3.2 Albumin/Globulin Ratio 1.1 Arterial Blood Potassium Urine Color Urine Clarity Urine pH Ur Specific [place] Urine Protein Urine Glucose (UA) Urine Ketones Urine Blood Urine Nitrate Urine Bilirubin Urine Urobilinogen Ur Leukocyte Esterase Urine WBC (Auto) Urine RBC (Auto) Ur Squamous Epith Cells Amorphous Sediment Urine Bacteria Hyaline Casts 08/11/18 08/11/18 08/12/18 23:18 23:55 01:11 WBC RBC Hgb Hct MCV MCH MCHC RDW Plt Count MPV Neut % (Auto) Lymph % (Auto) [place] % (Auto) Eos % (Auto) Baso % (Auto) Neut # (Auto) Lymph # (Auto) [place] # (Auto) Eos # (Auto) Baso # (Auto) Neutrophils % (Manual) Band Neutrophils % Lymphocytes % (Manual) Monocytes % (Manual) Platelet Estimate PT INR APTT Puncture Site pCO2 pO2 HCO3 ABG pH ABG Total CO2 ABG O2 Saturation ABG Base Excess Danny Test ABG Potassium A-a O2 Difference Respiratory Index Sodium Chloride Glucose Lactate Vent Mode Mechanical Rate FiO2 Tidal Volume PEEP Potassium Carbon Dioxide Anion Gap BUN Creatinine Est GFR ( Amer) Est GFR (Non-Af Amer) POC Glucose (mg/dL) 206 H 231 H 181 H Random Glucose Lactic Acid Calcium Phosphorus Magnesium Total Bilirubin AST ALT Alkaline Phosphatase Total Creatine Kinase CK-MB (Mass) Troponin I Total Protein Albumin Globulin Albumin/Globulin Ratio Arterial Blood Potassium Urine Color Urine Clarity Urine pH Ur Specific [place] Urine Protein Urine Glucose (UA) Urine Ketones Urine Blood Urine Nitrate Urine Bilirubin Urine Urobilinogen Ur Leukocyte Esterase Urine WBC (Auto) Urine RBC (Auto) Ur Squamous Epith Cells Amorphous Sediment Urine Bacteria Hyaline Casts 08/12/18 08/12/18 08/12/18 02:31 02:52 03:17 WBC RBC Hgb Hct MCV MCH MCHC RDW Plt Count MPV Neut % (Auto) Lymph % (Auto) [place] % (Auto) Eos % (Auto) Baso % (Auto) Neut # (Auto) Lymph # (Auto) [place] # (Auto) Eos # (Auto) Baso # (Auto) Neutrophils % (Manual) Band Neutrophils % Lymphocytes % (Manual) Monocytes % (Manual) Platelet Estimate PT 17.8 H INR 1.6 D APTT 84 H D Puncture Site pCO2 pO2 HCO3 ABG pH ABG Total CO2 ABG O2 Saturation ABG Base Excess Danny Test ABG Potassium A-a O2 Difference Respiratory Index Sodium Chloride Glucose Lactate Vent Mode Mechanical Rate FiO2 Tidal Volume PEEP Potassium Carbon Dioxide Anion Gap BUN Creatinine Est GFR ( Amer) Est GFR (Non-Af Amer) POC Glucose (mg/dL) 190 H 176 H Random Glucose Lactic Acid Calcium Phosphorus Magnesium Total Bilirubin AST ALT Alkaline Phosphatase Total Creatine Kinase CK-MB (Mass) Troponin I Total Protein Albumin Globulin Albumin/Globulin Ratio Arterial Blood Potassium Urine Color Urine Clarity Urine pH Ur Specific [place] Urine Protein Urine Glucose (UA) Urine Ketones Urine Blood Urine Nitrate Urine Bilirubin Urine Urobilinogen Ur Leukocyte Esterase Urine WBC (Auto) Urine RBC (Auto) Ur Squamous Epith Cells Amorphous Sediment Urine Bacteria Hyaline Casts 08/12/18 08/12/18 08/12/18 04:01 04:25 04:33 WBC RBC Hgb Hct MCV MCH MCHC RDW Plt Count MPV Neut % (Auto) Lymph % (Auto) [place] % (Auto) Eos % (Auto) Baso % (Auto) Neut # (Auto) Lymph # (Auto) [place] # (Auto) Eos # (Auto) Baso # (Auto) Neutrophils % (Manual) Band Neutrophils % Lymphocytes % (Manual) Monocytes % (Manual) Platelet Estimate PT INR APTT Puncture Site Rr pCO2 40 pO2 177 H HCO3 17.3 L ABG pH 7.24 L ABG Total CO2 18.3 L ABG O2 Saturation 100.3 H ABG Base Excess -9.8 L Danny Test Pos ABG Potassium 4.7 A-a O2 Difference 272.0 Respiratory Index 1.5 Sodium 138.0 Chloride 110.0 H Glucose 130 H Lactate 2.6 H Vent Mode Prvc Mechanical Rate 12 FiO2 70.0 Tidal Volume 500 PEEP 5 Potassium Carbon Dioxide Anion Gap BUN Creatinine Est GFR ( Amer) Est GFR (Non-Af Amer) POC Glucose (mg/dL) 183 H 152 H Random Glucose Lactic Acid Calcium Phosphorus Magnesium Total Bilirubin AST ALT Alkaline Phosphatase Total Creatine Kinase CK-MB (Mass) Troponin I Total Protein Albumin Globulin Albumin/Globulin Ratio Arterial Blood Potassium 4.7 Urine Color Urine Clarity Urine pH Ur Specific [place] Urine Protein Urine Glucose (UA) Urine Ketones Urine Blood Urine Nitrate Urine Bilirubin Urine Urobilinogen Ur Leukocyte Esterase Urine WBC (Auto) Urine RBC (Auto) Ur Squamous Epith Cells Amorphous Sediment Urine Bacteria Hyaline Casts 08/12/18 08/12/18 08/12/18 06:29 06:29 06:34 WBC 12.9 H RBC 3.60 L Hgb 11.0 L Hct 33.3 L MCV 92.4 MCH 30.7 MCHC 33.2 RDW 14.5 Plt Count 197 MPV 8.7 Neut % (Auto) 81.4 H Lymph % (Auto) 10.5 L [place] % (Auto) 8.0 Eos % (Auto) 0.0 Baso % (Auto) 0.1 Neut # (Auto) 10.5 H Lymph # (Auto) 1.4 [place] # (Auto) 1.0 H Eos # (Auto) 0.0 Baso # (Auto) 0.0 Neutrophils % (Manual) Band Neutrophils % Lymphocytes % (Manual) Monocytes % (Manual) Platelet Estimate PT INR APTT Puncture Site pCO2 pO2 HCO3 ABG pH ABG Total CO2 ABG O2 Saturation ABG Base Excess Danny Test ABG Potassium A-a O2 Difference Respiratory Index Sodium 137 Chloride 110 H Glucose Lactate Vent Mode Mechanical Rate FiO2 Tidal Volume PEEP Potassium 5.2 Carbon Dioxide 19 L Anion Gap 12 BUN 27 H Creatinine 1.2 Est GFR ( Amer) > 60 Est GFR (Non-Af Amer) 58 POC Glucose (mg/dL) 145 H Random Glucose 125 H D Lactic Acid Calcium 7.1 L Phosphorus 4.2 Magnesium 1.9 Total Bilirubin 0.4 AST 115 H ALT 63 Alkaline Phosphatase 52 Total Creatine Kinase 1050 H CK-MB (Mass) 25.1 H Troponin I 2.3700 H* Total Protein 5.9 L Albumin 3.0 L Globulin 2.9 Albumin/Globulin Ratio 1.0 Arterial Blood Potassium Urine Color Urine Clarity Urine pH Ur Specific [place] Urine Protein Urine Glucose (UA) Urine Ketones Urine Blood Urine Nitrate Urine Bilirubin Urine Urobilinogen Ur Leukocyte Esterase Urine WBC (Auto) Urine RBC (Auto) Ur Squamous Epith Cells Amorphous Sediment Urine Bacteria Hyaline Casts 08/12/18 08/12/18 08/12/18 07:03 08:42 09:24 WBC RBC Hgb Hct MCV MCH MCHC RDW Plt Count MPV Neut % (Auto) Lymph % (Auto) [place] % (Auto) Eos % (Auto) Baso % (Auto) Neut # (Auto) Lymph # (Auto) [place] # (Auto) Eos # (Auto) Baso # (Auto) Neutrophils % (Manual) Band Neutrophils % Lymphocytes % (Manual) Monocytes % (Manual) Platelet Estimate PT 16.8 H INR 1.5 APTT Cancelled Puncture Site pCO2 pO2 HCO3 ABG pH ABG Total CO2 ABG O2 Saturation ABG Base Excess Danny Test ABG Potassium A-a O2 Difference Respiratory Index Sodium Chloride Glucose Lactate Vent Mode Mechanical Rate FiO2 Tidal Volume PEEP Potassium Carbon Dioxide Anion Gap BUN Creatinine Est GFR ( Amer) Est GFR (Non-Af Amer) POC Glucose (mg/dL) 148 H 143 H Random Glucose Lactic Acid Calcium Phosphorus Magnesium Total Bilirubin AST ALT Alkaline Phosphatase Total Creatine Kinase CK-MB (Mass) Troponin I Total Protein Albumin Globulin Albumin/Globulin Ratio Arterial Blood Potassium Urine Color Urine Clarity Urine pH Ur Specific [place] Urine Protein Urine Glucose (UA) Urine Ketones Urine Blood Urine Nitrate Urine Bilirubin Urine Urobilinogen Ur Leukocyte Esterase Urine WBC (Auto) Urine RBC (Auto) Ur Squamous Epith Cells Amorphous Sediment Urine Bacteria Hyaline Casts 08/12/18 08/12/18 08/12/18 09:24 09:24 09:25 WBC 16.2 H RBC 3.84 L Hgb 11.8 L Hct 35.4 MCV 92.0 MCH 30.6 MCHC 33.2 RDW 14.4 Plt Count 212 MPV 7.8 Neut % (Auto) 82.4 H Lymph % (Auto) 10.3 L [place] % (Auto) 7.1 Eos % (Auto) 0.0 Baso % (Auto) 0.2 Neut # (Auto) 13.3 H Lymph # (Auto) 1.7 [place] # (Auto) 1.2 H Eos # (Auto) 0.0 Baso # (Auto) 0.0 Neutrophils % (Manual) Band Neutrophils % Lymphocytes % (Manual) Monocytes % (Manual) Platelet Estimate PT INR APTT Puncture Site pCO2 pO2 HCO3 ABG pH ABG Total CO2 ABG O2 Saturation ABG Base Excess Danny Test ABG Potassium A-a O2 Difference Respiratory Index Sodium 137 Chloride 108 H Glucose Lactate Vent Mode Mechanical Rate FiO2 Tidal Volume PEEP Potassium 5.2 Carbon Dioxide 19 L Anion Gap 16 BUN 27 H Creatinine 1.4 Est GFR ( Amer) 59 Est GFR (Non-Af Amer) 49 POC Glucose (mg/dL) 141 H Random Glucose 130 H Lactic Acid Calcium 7.3 L Phosphorus 4.8 H Magnesium 1.8 Total Bilirubin 0.3 AST 111 H ALT 66 Alkaline Phosphatase 65 Total Creatine Kinase CK-MB (Mass) Troponin I 2.2100 H* Total Protein 6.6 Albumin 3.5 Globulin 3.2 Albumin/Globulin Ratio 1.1 Arterial Blood Potassium Urine Color Urine Clarity Urine pH Ur Specific [place] Urine Protein Urine Glucose (UA) Urine Ketones Urine Blood Urine Nitrate Urine Bilirubin Urine Urobilinogen Ur Leukocyte Esterase Urine WBC (Auto) Urine RBC (Auto) Ur Squamous Epith Cells Amorphous Sediment Urine Bacteria Hyaline Casts 08/12/18 08/12/18 08/12/18 10:28 11:06 12:24 WBC RBC Hgb Hct MCV MCH MCHC RDW Plt Count MPV Neut % (Auto) Lymph % (Auto) [place] % (Auto) Eos % (Auto) Baso % (Auto) Neut # (Auto) Lymph # (Auto) [place] # (Auto) Eos # (Auto) Baso # (Auto) Neutrophils % (Manual) Band Neutrophils % Lymphocytes % (Manual) Monocytes % (Manual) Platelet Estimate PT INR APTT Puncture Site pCO2 pO2 HCO3 ABG pH ABG Total CO2 ABG O2 Saturation ABG Base Excess Danny Test ABG Potassium A-a O2 Difference Respiratory Index Sodium Chloride Glucose Lactate Vent Mode Mechanical Rate FiO2 Tidal Volume PEEP Potassium Carbon Dioxide Anion Gap BUN Creatinine Est GFR ( Amer) Est GFR (Non-Af Amer) POC Glucose (mg/dL) 136 H 154 H 129 H Random Glucose Lactic Acid Calcium Phosphorus Magnesium Total Bilirubin AST ALT Alkaline Phosphatase Total Creatine Kinase CK-MB (Mass) Troponin I Total Protein Albumin Globulin Albumin/Globulin Ratio Arterial Blood Potassium Urine Color Urine Clarity Urine pH Ur Specific [place] Urine Protein Urine Glucose (UA) Urine Ketones Urine Blood Urine Nitrate Urine Bilirubin Urine Urobilinogen Ur Leukocyte Esterase Urine WBC (Auto) Urine RBC (Auto) Ur Squamous Epith Cells Amorphous Sediment Urine Bacteria Hyaline Casts 08/12/18 08/12/18 08/12/18 13:35 13:37 14:53 WBC RBC Hgb Hct MCV MCH MCHC RDW Plt Count MPV Neut % (Auto) Lymph % (Auto) [place] % (Auto) Eos % (Auto) Baso % (Auto) Neut # (Auto) Lymph # (Auto) [place] # (Auto) Eos # (Auto) Baso # (Auto) Neutrophils % (Manual) Band Neutrophils % Lymphocytes % (Manual) Monocytes % (Manual) Platelet Estimate PT 16.8 H INR 1.5 APTT 147 H* D Puncture Site pCO2 pO2 HCO3 ABG pH ABG Total CO2 ABG O2 Saturation ABG Base Excess Danny Test ABG Potassium A-a O2 Difference Respiratory Index Sodium Chloride Glucose Lactate Vent Mode Mechanical Rate FiO2 Tidal Volume PEEP Potassium Carbon Dioxide Anion Gap BUN Creatinine Est GFR ( Amer) Est GFR (Non-Af Amer) POC Glucose (mg/dL) 130 H 132 H Random Glucose Lactic Acid Calcium Phosphorus Magnesium Total Bilirubin AST ALT Alkaline Phosphatase Total Creatine Kinase CK-MB (Mass) Troponin I Total Protein Albumin Globulin Albumin/Globulin Ratio Arterial Blood Potassium Urine Color Urine Clarity Urine pH Ur Specific [place] Urine Protein Urine Glucose (UA) Urine Ketones Urine Blood Urine Nitrate Urine Bilirubin Urine Urobilinogen Ur Leukocyte Esterase Urine WBC (Auto) Urine RBC (Auto) Ur Squamous Epith Cells Amorphous Sediment Urine Bacteria Hyaline Casts 08/12/18 15:52 WBC RBC Hgb Hct MCV MCH MCHC RDW Plt Count MPV Neut % (Auto) Lymph % (Auto) [place] % (Auto) Eos % (Auto) Baso % (Auto) Neut # (Auto) Lymph # (Auto) [place] # (Auto) Eos # (Auto) Baso # (Auto) Neutrophils % (Manual) Band Neutrophils % Lymphocytes % (Manual) Monocytes % (Manual) Platelet Estimate PT INR APTT Puncture Site pCO2 pO2 HCO3 ABG pH ABG Total CO2 ABG O2 Saturation ABG Base Excess Danny Test ABG Potassium A-a O2 Difference Respiratory Index Sodium Chloride Glucose Lactate Vent Mode Mechanical Rate FiO2 Tidal Volume PEEP Potassium Carbon Dioxide Anion Gap BUN Creatinine Est GFR ( Amer) Est GFR (Non-Af Amer) POC Glucose (mg/dL) 131 H Random Glucose Lactic Acid Calcium Phosphorus Magnesium Total Bilirubin AST ALT Alkaline Phosphatase Total Creatine Kinase CK-MB (Mass) Troponin I Total Protein Albumin Globulin Albumin/Globulin Ratio Arterial Blood Potassium Urine Color Urine Clarity Urine pH Ur Specific [place] Urine Protein Urine Glucose (UA) Urine Ketones Urine Blood Urine Nitrate Urine Bilirubin Urine Urobilinogen Ur Leukocyte Esterase Urine WBC (Auto) Urine RBC (Auto) Ur Squamous Epith Cells Amorphous Sediment Urine Bacteria Hyaline Casts Radiology Impressions: Radiology Impressions Chest X-Ray 08/11/18 18:38 IMPRESSION: Interval nasogastric tube deployment with tip barely in the stomach. Advancement 10-15 cm into the stomach further is recommended follow-up by confirmation chest or abdomen radiography. Left central venous line in good apparent position. Endotracheal tube unchanged in position grossly. Potential limited pulmonary vascular congestion versus atypical pneumonitis given peripheral increase in reticular markings. Chest X-Ray 08/11/18 21:12 IMPRESSION: Interval increase in pulmonary edema pattern with perihilar infiltrates not excluded. Nasogastric tube adequately advanced into the stomach region with left central venous line retracted into the left brachiocephalic vein junction with the superior vena cava. ET tube stable in position. Chest X-Ray 08/12/18 06:00 IMPRESSION: Worsening pulmonary edema Other findings as above. Attending/Attestation - Attestation I have personally seen and examined this patient.: Yes I have fully participated in the care of the patient.: Yes I have reviewed all pertinent clinical information: Yes Notes (Text): 08/12/18 16:10 Today: August The Patient was seen and examined at the bedside, Medical records reviewed, and management issues were discussed and formulated with the house staff. I have reviewed all the relevant clinical, laboratory, hemodynamic, radiographic data and medications Events reviewed Pain issues, skin care, head of the bed elevation, glycemic control were addressed. Agree with above resident's assessment and treatment plans of care as ayala scribed in Dr. Amezquita's note. Total critical care time 35 minutes
[2018-08-12 08:33] LABS: CK-MB 25.1 ng/mL (0.0-3.38)
--- NOTE | 2018-08-12 08:45 | RAD ---
Date of service: 08/11/2018 HISTORY: left IJ tlc insertion COMPARISON: Portable chest 08/11/2018 2:49 p.m.. FINDINGS: Endotracheal tube is not significantly changed in position. Interval left central venous line is been placed by an apparent left internal jugular approach with the tip turning at the distal superior vena cava. Further, a nasogastric tube is in placed terminating at the left upper quadrant abdomen but likely barely in the stomach. Advancement further into the stomach some 10-15 cm is recommended. External pacemaker reiterated. LUNGS: No acute infiltrates bilaterally. Trace increase in peripheral reticular markings is identified which is nonspecific and could be vascular related or potential atypical pneumonitis. PLEURA: No significant pleural effusion identified, no pneumothorax apparent. CARDIOVASCULAR: Calcific atherosclerotic changes are seen related to the thoracic aorta. Normal cardiac size. Subtle pulmonary vascular congestion is not excluded given peripheral increase in reticular markings though this pattern could be a reflection of atypical pneumonitis. OSSEOUS STRUCTURES: No significant abnormalities. VISUALIZED UPPER ABDOMEN: Normal. OTHER FINDINGS: None. IMPRESSION: Interval nasogastric tube deployment with tip barely in the stomach. Advancement 10-15 cm into the stomach further is recommended follow-up by confirmation chest or abdomen radiography. Left central venous line in good apparent position. Endotracheal tube unchanged in position grossly. Potential limited pulmonary vascular congestion versus atypical pneumonitis given peripheral increase in reticular markings.
--- NOTE | 2018-08-12 08:47 | RAD ---
Date of service: 08/11/2018 HISTORY: Left IJ placement re evaluation COMPARISON: Portable chest 08/11/2018 6:43 p.m.. FINDINGS: LUNGS: Endotracheal tube is unchanged in position with nasogastric tube adequately advanced into the region of the stomach at the left upper quadrant abdomen. Left central venous line is been retracted terminating at the region of the junction of the brachiocephalic vein with superior vena cava. External pacemaker again in position. Increased perihilar density may reflect pulmonary vascular congestion. Acute infiltrates of the differential diagnosis though not favored. Clinically correlate further. Reticular markings remain slightly increased in the periphery favoring pulmonary vascular congestion. PLEURA: No significant pleural effusion identified, no pneumothorax apparent. CARDIOVASCULAR: Calcific atherosclerotic changes are seen related to the thoracic aorta. Stable cardiac silhouette appearance. No pulmonary vascular congestion. OSSEOUS STRUCTURES: No significant abnormalities. VISUALIZED UPPER ABDOMEN: Normal. OTHER FINDINGS: None. IMPRESSION: Interval increase in pulmonary edema pattern with perihilar infiltrates not excluded. Nasogastric tube adequately advanced into the stomach region with left central venous line retracted into the left brachiocephalic vein junction with the superior vena cava. ET tube stable in position.
--- NOTE | 2018-08-12 09:21 | RAD ---
Date of service: 08/12/2018 HISTORY: intubated COMPARISON: 08/11/2018 at 2131 hr. Chest x-ray FINDINGS: LUNGS: The bilateral coalescent airspace opacities have increased bilaterally. These findings are more extensive than the left lung and the interval changes more extensive the left lung. PLEURA: No significant pleural effusion identified, no pneumothorax apparent. CARDIOVASCULAR: There is absence of aortic atherosclerotic calcification on x-ray. Minimal cardiomegaly. Increased pulmonary venous congestion OSSEOUS STRUCTURES: No significant abnormalities. VISUALIZED UPPER ABDOMEN: Normal. OTHER FINDINGS: Endotracheal tube tip 3 cm cephalad to carolann. Nasogastric tube appears to be at least coursing in the stomach. Distal aspect less clearly seen than prior study. Internal jugular vein catheter tip probably proximal superior vena cava/ IMPRESSION: Worsening pulmonary edema Other findings as above.
[2018-08-12 09:32] LABS: ABG ALLEN TEST POS
[2018-08-12 09:37] LABS: BASO % 0.2 % (0.0-2.0); HEMOGLOBIN 11.8 g/dL (12.0-18.0); LYMPH # 1.7 K/uL (1.0-4.3); LYMPH % 10.3 % (20.0-40.0); MEAN CORPUSCULAR HEMOGLOBIN 30.6 pg (27.0-31.0); MEAN CORPUSCULAR HGB CONC 33.2 g/dL (33.0-37.0); MEAN PLATELET VOLUME 7.8 fL (7.2-11.7); MONO # 1.2 K/uL (0.0-0.8); MONO % 7.1 % (0.0-10.0); NEUT # 13.3 K/uL (1.8-7.0); NEUT % 82.4 % (50.0-75.0); RBC 3.84 Mil/uL (4.40-5.90); RED CELL DISTRIBUTION WIDTH 14.4 % (11.5-14.5); WHITE BLOOD COUNT 16.2 K/uL (4.8-10.8)
[2018-08-12 09:43] LABS: INR 1.5; PROTHROMBIN TIME 16.8 SECONDS (9.7-12.2)
[2018-08-12 10:02] LABS: ALB/GLOB RATIO 1.1 (1.0-2.1); ALBUMIN 3.5 g/dL (3.5-5.0); CALCIUM 7.3 mg/dl (8.6-10.4)
[2018-08-12 10:25] LABS: TROPONIN I 2.21 ng/mL (0.00-0.120)
[2018-08-12 10:42] LABS: ARTERIAL BLOOD GAS HCO3 17.3 mmol/L (21-28); ARTERIAL BLOOD GAS O2 SAT 100.3 % (95-98); ARTERIAL BLOOD GAS PCO2 40 mm/Hg (35-45); ARTERIAL BLOOD GAS PH 7.24 (7.35-7.45); ARTERIAL BLOOD GAS PO2 177 mm/Hg (80-100); ARTERIAL BLOOD GAS TCO2 18.3 mmol/L (22-28)
[2018-08-12] MEDS ORDERED: Acetaminophen 650mg/20.3ml solution UD PO PRN (11:22)
--- NOTE | 2018-08-12 13:56 | CP.PCM.PN ---
Subjective - Date & Time of Evaluation Date of Evaluation: 08/12/18 Time of Evaluation: 13:15 - Subjective Subjective: clinically same Objective - Vital Signs/Intake and Output Vital Signs (last 24 hours): Temp Pulse Resp BP Pulse Ox 90.9 F L 75 15 90/49 L 100 08/12/18 13:00 08/12/18 13:17 08/12/18 13:17 08/12/18 13:17 08/12/18 13:17 Intake and Output: 08/12/18 08/12/18 06:59 18:59 Intake Total 2151.0 1241.5 Output Total 375 805 Balance 1776.0 436.5 - Medications Medications: Current Medications Acetaminophen (Tylenol 650mg/20.3ml Solution Ud) 975 mg PO Q6H PRN PRN Reason: shivering Dextrose (Dextrose 50% Inj) 0 ml IV STAT PRN; Protocol PRN Reason: Hypoglycemia Protocol Dextrose (Glutose 15) 0 gm PO ONCE PRN; Protocol PRN Reason: Hypoglycemia Protocol Glucagon (Glucagen Diagnostic Kit) 0 mg IM STAT PRN; Protocol PRN Reason: Hypoglycemia Protocol Dextrose (Dextrose 5% In Water 1000 Ml) 1,000 mls @ 0 mls/hr IV .Q0M PRN; Protocol PRN Reason: Hypoglycemia Protocol Heparin Sodium/Sodium Chloride (Heparin 83770 Units/250ml 1/2 Normal Saline) 25,000 units in 250 mls @ 8.165 mls/hr IV .Q24H PRN; Protocol PRN Reason: ADJUST RATE PER PROTOCOL Last Admin: 08/11/18 20:09 Dose: 12 units/kg/hr, 8.165 mls/hr Propofol (Diprivan) 1,000 mg in 100 mls @ 2.041 mls/hr IV .Q24H PRN; Protocol PRN Reason: TITRATE PER MD ORDER Last Titration: 08/12/18 13:47 Dose: 30 mcg/kg/min, 12.247 mls/hr Midazolam HCl 100 mg/ Sodium (Chloride) 100 mls @ 1.36 mls/hr IV .Q24H JESSE; Protocol Last Titration: 08/12/18 02:00 Dose: 0 mg/kg/hr, 0 mls/hr Sodium Chloride (Sodium Chloride 0.9%) 1,000 mls @ 150 mls/hr IV .Q6H40M JESSE Last Admin: 08/12/18 10:43 Dose: 150 mls/hr Insulin Human Regular (Novolin R) 0 unit SC ACHS [facility]; Protocol Last Admin: 08/12/18 11:30 Dose: Not Given Metoprolol Tartrate (Lopressor) 50 mg PO BID [facility] Last Admin: 08/12/18 10:43 Dose: 50 mg Pantoprazole Sodium (Protonix Inj) 40 mg IVP DAILY [facility] Last Admin: 08/12/18 10:42 Dose: 40 mg - Labs Labs: 08/12/18 09:24 08/12/18 09:24 PT 16.8 SECONDS (9.7-12.2) H 08/12/18 09:24 INR 1.5 08/12/18 09:24 APTT 84 SECONDS (21-34) H D 08/12/18 02:52
[2018-08-12 14:02] LABS: INR 1.5; PROTHROMBIN TIME 16.8 SECONDS (9.7-12.2)
[2018-08-12 16:24] LABS: BASO % 0.1 % (0.0-2.0); HEMOGLOBIN 11.1 g/dL (12.0-18.0); LYMPH # 1.7 K/uL (1.0-4.3); LYMPH % 10.4 % (20.0-40.0); MEAN CELL VOLUME 91.6 fL (80.0-94.0); MEAN CORPUSCULAR HGB CONC 32.7 g/dL (33.0-37.0); MEAN PLATELET VOLUME 7.5 fL (7.2-11.7); MONO # 1.2 K/uL (0.0-0.8); NEUT # 13.7 K/uL (1.8-7.0); NEUT % 82.5 % (50.0-75.0); RBC 3.71 Mil/uL (4.40-5.90); RED CELL DISTRIBUTION WIDTH 14.4 % (11.5-14.5); WHITE BLOOD COUNT 16.5 K/uL (4.8-10.8)
[2018-08-12 16:40] LABS: ALB/GLOB RATIO 1.1 (1.0-2.1); ALBUMIN 3.2 g/dL (3.5-5.0); CALCIUM 7.3 mg/dl (8.6-10.4)
--- NOTE | 2018-08-12 17:58 | CP.PCM.CON ---
History of Present Illness - History of Present Illness History of Present Illness: 83-year-old male was admitted to ICU status post cardiac arrest. Patient currently on vent support. Pulmonary consult called for further management. Patient is unresponsive. There are no reported signs of anoxic brain injury Review of Systems - Review of Systems Systems not reviewed;Unavailable: Altered Mental Status Past Patient History - Infectious Disease Hx of Infectious Diseases: C.diff - Past Medical History & Family History Past Medical History?: Yes - Past Social History Smoking Status: Former Smoker - CARDIAC Hx Atrial Fibrillation: Yes Hx Cardia Arrhythmia: (A FIB) Hx Congestive Heart Failure: Yes Hx Hypercholesterolemia: Yes Hx Hypertension: Yes - PULMONARY Hx Respiratory Disorders: No - NEUROLOGICAL Hx Alzheimer's Disease: Yes Hx Dementia: Yes - HEENT Hx HEENT Problems: No - RENAL Hx Chronic Kidney Disease: No - ENDOCRINE/METABOLIC Hx Hypothyroidism: Yes - HEMATOLOGICAL/ONCOLOGICAL Hx Blood Disorders: No - INTEGUMENTARY Hx Dermatological Problems: No - MUSCULOSKELETAL/RHEUMATOLOGICAL Hx Falls: Yes - GASTROINTESTINAL Hx Gastrointestinal Disorders: No - GENITOURINARY/GYNECOLOGICAL Hx Prostate Problems: Yes - PSYCHIATRIC Hx Substance Use: No - SURGICAL HISTORY Hx Carotid Endarterectomy: Yes (RIGHT) - ANESTHESIA Hx Anesthesia: Yes Hx Anesthesia Reactions: No Hx Malignant Hyperthermia: No Meds Allergies/Adverse Reactions: Allergies Allergy/AdvReac Type Severity Reaction Status Date / Time No Known Allergies Allergy Verified 08/11/18 14:21 - Medications Medications: Current Medications Acetaminophen (Tylenol 650mg/20.3ml Solution Ud) 975 mg PO Q6H PRN PRN Reason: shivering Dextrose (Dextrose 50% Inj) 0 ml IV STAT PRN; Protocol PRN Reason: Hypoglycemia Protocol Dextrose (Glutose 15) 0 gm PO ONCE PRN; Protocol PRN Reason: Hypoglycemia Protocol Glucagon (Glucagen Diagnostic Kit) 0 mg IM STAT PRN; Protocol PRN Reason: Hypoglycemia Protocol Dextrose (Dextrose 5% In Water 1000 Ml) 1,000 mls @ 0 mls/hr IV .Q0M PRN; Protocol PRN Reason: Hypoglycemia Protocol Heparin Sodium/Sodium Chloride (Heparin 68790 Units/250ml 1/2 Normal Saline) 25,000 units in 250 mls @ 8.165 mls/hr IV .Q24H PRN; Protocol PRN Reason: ADJUST RATE PER PROTOCOL Last Titration: 08/12/18 15:15 Dose: 9 units/kg/hr, 6.124 mls/hr Propofol (Diprivan) 1,000 mg in 100 mls @ 2.041 mls/hr IV .Q24H PRN; Protocol PRN Reason: TITRATE PER MD ORDER Last Admin: 08/12/18 16:40 Dose: 50 mcg/kg/min, 20.412 mls/hr Midazolam HCl 100 mg/ Sodium (Chloride) 100 mls @ 1.36 mls/hr IV .Q24H JESSE; Protocol Last Titration: 08/12/18 02:00 Dose: 0 mg/kg/hr, 0 mls/hr Sodium Chloride (Sodium Chloride 0.9%) 1,000 mls @ 150 mls/hr IV .Q6H40M JESSE Last Admin: 08/12/18 17:03 Dose: 150 mls/hr Piperacillin Sod/Tazobactam (Sod 3.375 gm/ Sodium Chloride) 100 mls @ 200 mls/hr IVPB Q8H JESSE; Protocol Vancomycin HCl 1 gm/ Sodium (Chloride) 250 mls @ 166.7 mls/hr IVPB ONCE ONE; Protocol Stop: 08/12/18 19:29 Insulin Human Regular (Novolin R) 0 unit SC ACHS [facility]; Protocol Last Admin: 08/12/18 16:30 Dose: Not Given Metoprolol Tartrate (Lopressor) 50 mg PO BID [facility] Last Admin: 08/12/18 10:43 Dose: 50 mg Pantoprazole Sodium (Protonix Inj) 40 mg IVP DAILY [facility] Last Admin: 08/12/18 10:42 Dose: 40 mg Physical Exam - Head Exam Head Exam: NORMAL INSPECTION - Eye Exam Eye Exam: Normal appearance - ENT Exam ENT Exam: Mucous Membranes Moist - Respiratory Exam Respiratory Exam: Rales, Rhonchi - Cardiovascular Exam Cardiovascular Exam: REGULAR RHYTHM, +S1, +S2 - GI/Abdominal Exam GI & Abdominal Exam: Diminished Bowel Sounds, Soft Results - Vital Signs Recent Vital Signs: Last Vital Signs Temp 92.3 F L 08/12/18 17:00 Pulse 84 08/12/18 17:08 Resp 14 08/12/18 17:08 BP 107/75 08/12/18 17:08 Pulse Ox 98 08/12/18 17:08 - Labs Result Diagrams: 08/18/18 04:36 08/18/18 04:36 Labs: Laboratory Results - last 24 hr 08/11/18 08/11/18 08/11/18 18:59 19:26 20:31 WBC RBC Hgb Hct MCV MCH MCHC RDW Plt Count MPV Neut % (Auto) Lymph % (Auto) Ritchie % (Auto) Eos % (Auto) Baso % (Auto) Neut # (Auto) Lymph # (Auto) Ritchie # (Auto) Eos # (Auto) Baso # (Auto) Neutrophils % (Manual) Band Neutrophils % Lymphocytes % (Manual) Monocytes % (Manual) Platelet Estimate PT INR APTT Puncture Site Lr pCO2 39 pO2 134 H HCO3 16.3 L ABG pH 7.22 L ABG Total CO2 17.2 L ABG O2 Saturation 99.3 H ABG Base Excess -11.1 L Danny Test Unable ABG Potassium 3.7 A-a O2 Difference 316.0 Respiratory Index 2.4 Sodium 142.0 Chloride 113.0 H Glucose 174 H Lactate 3.4 H Vent Mode Prvc Mechanical Rate 12 FiO2 70.0 Tidal Volume 500 PEEP 5 Potassium Carbon Dioxide Anion Gap BUN Creatinine Est GFR ( Amer) Est GFR (Non-Af Amer) POC Glucose (mg/dL) 248 H Random Glucose Lactic Acid Calcium Phosphorus Magnesium Total Bilirubin AST ALT Alkaline Phosphatase Total Creatine Kinase CK-MB (Mass) Troponin I Total Protein Albumin Globulin Albumin/Globulin Ratio Arterial Blood Potassium 3.7 Urine Color Yellow Urine Clarity Hazy Urine pH 5.0 Ur Specific Julian 1.019 Urine Protein 3+ H Urine Glucose (UA) Normal Urine Ketones Negative Urine Blood 2+ H Urine Nitrate Negative Urine Bilirubin Negative Urine Urobilinogen Normal Ur Leukocyte Esterase Neg Urine WBC (Auto) 8 H Urine RBC (Auto) 6 H Ur Squamous Epith Cells 1 Amorphous Sediment Moderate H Urine Bacteria Rare Hyaline Casts 6-10 H 08/11/18 08/11/18 08/11/18 21:19 22:10 22:50 WBC 14.8 H D RBC 3.94 L Hgb 11.9 L Hct 36.0 MCV 91.3 MCH 30.2 MCHC 33.1 RDW 14.0 Plt Count 222 MPV 7.6 Neut % (Auto) 91.6 H Lymph % (Auto) 4.0 L Ritchie % (Auto) 4.1 Eos % (Auto) 0.0 Baso % (Auto) 0.3 Neut # (Auto) 13.6 H Lymph # (Auto) 0.6 L Ritchie # (Auto) 0.6 Eos # (Auto) 0.0 Baso # (Auto) 0.0 Neutrophils % (Manual) 88 H Band Neutrophils % 4 H Lymphocytes % (Manual) 4 L Monocytes % (Manual) 4 Platelet Estimate Normal PT INR APTT Puncture Site pCO2 pO2 HCO3 ABG pH ABG Total CO2 ABG O2 Saturation ABG Base Excess Danny Test ABG Potassium A-a O2 Difference Respiratory Index Sodium Chloride Glucose Lactate Vent Mode Mechanical Rate FiO2 Tidal Volume PEEP Potassium Carbon Dioxide Anion Gap BUN Creatinine Est GFR ( Amer) Est GFR (Non-Af Amer) POC Glucose (mg/dL) 218 H 217 H Random Glucose Lactic Acid Calcium Phosphorus Magnesium Total Bilirubin AST ALT Alkaline Phosphatase Total Creatine Kinase CK-MB (Mass) Troponin I Total Protein Albumin Globulin Albumin/Globulin Ratio Arterial Blood Potassium Urine Color Urine Clarity Urine pH Ur Specific Julian Urine Protein Urine Glucose (UA) Urine Ketones Urine Blood Urine Nitrate Urine Bilirubin Urine Urobilinogen Ur Leukocyte Esterase Urine WBC (Auto) Urine RBC (Auto) Ur Squamous Epith Cells Amorphous Sediment Urine Bacteria Hyaline Casts 08/11/18 08/11/18 08/11/18 22:50 22:50 23:18 WBC RBC Hgb Hct MCV MCH MCHC RDW Plt Count MPV Neut % (Auto) Lymph % (Auto) Ritchie % (Auto) Eos % (Auto) Baso % (Auto) Neut # (Auto) Lymph # (Auto) Ritchie # (Auto) Eos # (Auto) Baso # (Auto) Neutrophils % (Manual) Band Neutrophils % Lymphocytes % (Manual) Monocytes % (Manual) Platelet Estimate PT INR APTT Puncture Site pCO2 pO2 HCO3 ABG pH ABG Total CO2 ABG O2 Saturation ABG Base Excess Danny Test ABG Potassium A-a O2 Difference Respiratory Index Sodium 136 Chloride 108 H Glucose Lactate Vent Mode Mechanical Rate FiO2 Tidal Volume PEEP Potassium 4.8 Carbon Dioxide 19 L Anion Gap 14 BUN 25 H Creatinine 1.2 Est GFR ( Amer) > 60 Est GFR (Non-Af Amer) 58 POC Glucose (mg/dL) 206 H Random Glucose 192 H Lactic Acid 3.7 H Calcium 7.7 L Phosphorus 6.4 H Magnesium 1.9 Total Bilirubin 0.4 AST 110 H ALT 73 H Alkaline Phosphatase 74 Total Creatine Kinase CK-MB (Mass) Troponin I Total Protein 6.6 Albumin 3.4 L Globulin 3.2 Albumin/Globulin Ratio 1.1 Arterial Blood Potassium Urine Color Urine Clarity Urine pH Ur Specific Julian Urine Protein Urine Glucose (UA) Urine Ketones Urine Blood Urine Nitrate Urine Bilirubin Urine Urobilinogen Ur Leukocyte Esterase Urine WBC (Auto) Urine RBC (Auto) Ur Squamous Epith Cells Amorphous Sediment Urine Bacteria Hyaline Casts 08/11/18 08/12/18 08/12/18 23:55 01:11 02:31 WBC RBC Hgb Hct MCV MCH MCHC RDW Plt Count MPV Neut % (Auto) Lymph % (Auto) Ritchie % (Auto) Eos % (Auto) Baso % (Auto) Neut # (Auto) Lymph # (Auto) Ritchie # (Auto) Eos # (Auto) Baso # (Auto) Neutrophils % (Manual) Band Neutrophils % Lymphocytes % (Manual) Monocytes % (Manual) Platelet Estimate PT INR APTT Puncture Site pCO2 pO2 HCO3 ABG pH ABG Total CO2 ABG O2 Saturation ABG Base Excess Danny Test ABG Potassium A-a O2 Difference Respiratory Index Sodium Chloride Glucose Lactate Vent Mode Mechanical Rate FiO2 Tidal Volume PEEP Potassium Carbon Dioxide Anion Gap BUN Creatinine Est GFR ( Amer) Est GFR (Non-Af Amer) POC Glucose (mg/dL) 231 H 181 H 190 H Random Glucose Lactic Acid Calcium Phosphorus Magnesium Total Bilirubin AST ALT Alkaline Phosphatase Total Creatine Kinase CK-MB (Mass) Troponin I Total Protein Albumin Globulin Albumin/Globulin Ratio Arterial Blood Potassium Urine Color Urine Clarity Urine pH Ur Specific Julian Urine Protein Urine Glucose (UA) Urine Ketones Urine Blood Urine Nitrate Urine Bilirubin Urine Urobilinogen Ur Leukocyte Esterase Urine WBC (Auto) Urine RBC (Auto) Ur Squamous Epith Cells Amorphous Sediment Urine Bacteria Hyaline Casts 08/12/18 08/12/18 08/12/18 02:52 03:17 04:01 WBC RBC Hgb Hct MCV MCH MCHC RDW Plt Count MPV Neut % (Auto) Lymph % (Auto) Ritchie % (Auto) Eos % (Auto) Baso % (Auto) Neut # (Auto) Lymph # (Auto) Ritchie # (Auto) Eos # (Auto) Baso # (Auto) Neutrophils % (Manual) Band Neutrophils % Lymphocytes % (Manual) Monocytes % (Manual) Platelet Estimate PT 17.8 H INR 1.6 D APTT 84 H D Puncture Site pCO2 pO2 HCO3 ABG pH ABG Total CO2 ABG O2 Saturation ABG Base Excess Danny Test ABG Potassium A-a O2 Difference Respiratory Index Sodium Chloride Glucose Lactate Vent Mode Mechanical Rate FiO2 Tidal Volume PEEP Potassium Carbon Dioxide Anion Gap BUN Creatinine Est GFR ( Amer) Est GFR (Non-Af Amer) POC Glucose (mg/dL) 176 H 183 H Random Glucose Lactic Acid Calcium Phosphorus Magnesium Total Bilirubin AST ALT Alkaline Phosphatase Total Creatine Kinase CK-MB (Mass) Troponin I Total Protein Albumin Globulin Albumin/Globulin Ratio Arterial Blood Potassium Urine Color Urine Clarity Urine pH Ur Specific Julian Urine Protein Urine Glucose (UA) Urine Ketones Urine Blood Urine Nitrate Urine Bilirubin Urine Urobilinogen Ur Leukocyte Esterase Urine WBC (Auto) Urine RBC (Auto) Ur Squamous Epith Cells Amorphous Sediment Urine Bacteria Hyaline Casts 08/12/18 08/12/18 08/12/18 04:25 04:33 06:29 WBC 12.9 H RBC 3.60 L Hgb 11.0 L Hct 33.3 L MCV 92.4 MCH 30.7 MCHC 33.2 RDW 14.5 Plt Count 197 MPV 8.7 Neut % (Auto) 81.4 H Lymph % (Auto) 10.5 L Ritchie % (Auto) 8.0 Eos % (Auto) 0.0 Baso % (Auto) 0.1 Neut # (Auto) 10.5 H Lymph # (Auto) 1.4 Ritchie # (Auto) 1.0 H Eos # (Auto) 0.0 Baso # (Auto) 0.0 Neutrophils % (Manual) Band Neutrophils % Lymphocytes % (Manual) Monocytes % (Manual) Platelet Estimate PT INR APTT Puncture Site Rr pCO2 40 pO2 177 H HCO3 17.3 L ABG pH 7.24 L ABG Total CO2 18.3 L ABG O2 Saturation 100.3 H ABG Base Excess -9.8 L Danny Test Pos ABG Potassium 4.7 A-a O2 Difference 272.0 Respiratory Index 1.5 Sodium 138.0 Chloride 110.0 H Glucose 130 H Lactate 2.6 H Vent Mode Prvc Mechanical Rate 12 FiO2 70.0 Tidal Volume 500 PEEP 5 Potassium Carbon Dioxide Anion Gap BUN Creatinine Est GFR ( Amer) Est GFR (Non-Af Amer) POC Glucose (mg/dL) 152 H Random Glucose Lactic Acid Calcium Phosphorus Magnesium Total Bilirubin AST ALT Alkaline Phosphatase Total Creatine Kinase CK-MB (Mass) Troponin I Total Protein Albumin Globulin Albumin/Globulin Ratio Arterial Blood Potassium 4.7 Urine Color Urine Clarity Urine pH Ur Specific Julian Urine Protein Urine Glucose (UA) Urine Ketones Urine Blood Urine Nitrate Urine Bilirubin Urine Urobilinogen Ur Leukocyte Esterase Urine WBC (Auto) Urine RBC (Auto) Ur Squamous Epith Cells Amorphous Sediment Urine Bacteria Hyaline Casts 08/12/18 08/12/18 08/12/18 06:29 06:34 07:03 WBC RBC Hgb Hct MCV MCH MCHC RDW Plt Count MPV Neut % (Auto) Lymph % (Auto) Ritchie % (Auto) Eos % (Auto) Baso % (Auto) Neut # (Auto) Lymph # (Auto) Ritchie # (Auto) Eos # (Auto) Baso # (Auto) Neutrophils % (Manual) Band Neutrophils % Lymphocytes % (Manual) Monocytes % (Manual) Platelet Estimate PT INR APTT Puncture Site pCO2 pO2 HCO3 ABG pH ABG Total CO2 ABG O2 Saturation ABG Base Excess Danny Test ABG Potassium A-a O2 Difference Respiratory Index Sodium 137 Chloride 110 H Glucose Lactate Vent Mode Mechanical Rate FiO2 Tidal Volume PEEP Potassium 5.2 Carbon Dioxide 19 L Anion Gap 12 BUN 27 H Creatinine 1.2 Est GFR ( Amer) > 60 Est GFR (Non-Af Amer) 58 POC Glucose (mg/dL) 145 H 148 H Random Glucose 125 H D Lactic Acid Calcium 7.1 L Phosphorus 4.2 Magnesium 1.9 Total Bilirubin 0.4 AST 115 H ALT 63 Alkaline Phosphatase 52 Total Creatine Kinase 1050 H CK-MB (Mass) 25.1 H Troponin I 2.3700 H* Total Protein 5.9 L Albumin 3.0 L Globulin 2.9 Albumin/Globulin Ratio 1.0 Arterial Blood Potassium Urine Color Urine Clarity Urine pH Ur Specific Julian Urine Protein Urine Glucose (UA) Urine Ketones Urine Blood Urine Nitrate Urine Bilirubin Urine Urobilinogen Ur Leukocyte Esterase Urine WBC (Auto) Urine RBC (Auto) Ur Squamous Epith Cells Amorphous Sediment Urine Bacteria Hyaline Casts 08/12/18 08/12/18 08/12/18 08:42 09:24 09:24 WBC 16.2 H RBC 3.84 L Hgb 11.8 L Hct 35.4 MCV 92.0 MCH 30.6 MCHC 33.2 RDW 14.4 Plt Count 212 MPV 7.8 Neut % (Auto) 82.4 H Lymph % (Auto) 10.3 L Ritchie % (Auto) 7.1 Eos % (Auto) 0.0 Baso % (Auto) 0.2 Neut # (Auto) 13.3 H Lymph # (Auto) 1.7 Ritchie # (Auto) 1.2 H Eos # (Auto) 0.0 Baso # (Auto) 0.0 Neutrophils % (Manual) Band Neutrophils % Lymphocytes % (Manual) Monocytes % (Manual) Platelet Estimate PT 16.8 H INR 1.5 APTT Cancelled Puncture Site pCO2 pO2 HCO3 ABG pH ABG Total CO2 ABG O2 Saturation ABG Base Excess Danny Test ABG Potassium A-a O2 Difference Respiratory Index Sodium Chloride Glucose Lactate Vent Mode Mechanical Rate FiO2 Tidal Volume PEEP Potassium Carbon Dioxide Anion Gap BUN Creatinine Est GFR ( Amer) Est GFR (Non-Af Amer) POC Glucose (mg/dL) 143 H Random Glucose Lactic Acid Calcium Phosphorus Magnesium Total Bilirubin AST ALT Alkaline Phosphatase Total Creatine Kinase CK-MB (Mass) Troponin I Total Protein Albumin Globulin Albumin/Globulin Ratio Arterial Blood Potassium Urine Color Urine Clarity Urine pH Ur Specific Julian Urine Protein Urine Glucose (UA) Urine Ketones Urine Blood Urine Nitrate Urine Bilirubin Urine Urobilinogen Ur Leukocyte Esterase Urine WBC (Auto) Urine RBC (Auto) Ur Squamous Epith Cells Amorphous Sediment Urine Bacteria Hyaline Casts 08/12/18 08/12/18 08/12/18 09:24 09:25 10:28 WBC RBC Hgb Hct MCV MCH MCHC RDW Plt Count MPV Neut % (Auto) Lymph % (Auto) Ritchie % (Auto) Eos % (Auto) Baso % (Auto) Neut # (Auto) Lymph # (Auto) Ritchie # (Auto) Eos # (Auto) Baso # (Auto) Neutrophils % (Manual) Band Neutrophils % Lymphocytes % (Manual) Monocytes % (Manual) Platelet Estimate PT INR APTT Puncture Site pCO2 pO2 HCO3 ABG pH ABG Total CO2 ABG O2 Saturation ABG Base Excess Danny Test ABG Potassium A-a O2 Difference Respiratory Index Sodium 137 Chloride 108 H Glucose Lactate Vent Mode Mechanical Rate FiO2 Tidal Volume PEEP Potassium 5.2 Carbon Dioxide 19 L Anion Gap 16 BUN 27 H Creatinine 1.4 Est GFR ( Amer) 59 Est GFR (Non-Af Amer) 49 POC Glucose (mg/dL) 141 H 136 H Random Glucose 130 H Lactic Acid Calcium 7.3 L Phosphorus 4.8 H Magnesium 1.8 Total Bilirubin 0.3 AST 111 H ALT 66 Alkaline Phosphatase 65 Total Creatine Kinase CK-MB (Mass) Troponin I 2.2100 H* Total Protein 6.6 Albumin 3.5 Globulin 3.2 Albumin/Globulin Ratio 1.1 Arterial Blood Potassium Urine Color Urine Clarity Urine pH Ur Specific Julian Urine Protein Urine Glucose (UA) Urine Ketones Urine Blood Urine Nitrate Urine Bilirubin Urine Urobilinogen Ur Leukocyte Esterase Urine WBC (Auto) Urine RBC (Auto) Ur Squamous Epith Cells Amorphous Sediment Urine Bacteria Hyaline Casts 08/12/18 08/12/18 08/12/18 11:06 12:24 13:35 WBC RBC Hgb Hct MCV MCH MCHC RDW Plt Count MPV Neut % (Auto) Lymph % (Auto) Ritchie % (Auto) Eos % (Auto) Baso % (Auto) Neut # (Auto) Lymph # (Auto) Ritchie # (Auto) Eos # (Auto) Baso # (Auto) Neutrophils % (Manual) Band Neutrophils % Lymphocytes % (Manual) Monocytes % (Manual) Platelet Estimate PT INR APTT Puncture Site pCO2 pO2 HCO3 ABG pH ABG Total CO2 ABG O2 Saturation ABG Base Excess Danny Test ABG Potassium A-a O2 Difference Respiratory Index Sodium Chloride Glucose Lactate Vent Mode Mechanical Rate FiO2 Tidal Volume PEEP Potassium Carbon Dioxide Anion Gap BUN Creatinine Est GFR ( Amer) Est GFR (Non-Af Amer) POC Glucose (mg/dL) 154 H 129 H 130 H Random Glucose Lactic Acid Calcium Phosphorus Magnesium Total Bilirubin AST ALT Alkaline Phosphatase Total Creatine Kinase CK-MB ([facility]) Troponin I Total Protein Albumin Globulin Albumin/Globulin Ratio Arterial Blood Potassium Urine Color Urine Clarity Urine pH Ur Specific Julian Urine Protein Urine Glucose (UA) Urine Ketones Urine Blood Urine Nitrate Urine Bilirubin Urine Urobilinogen Ur Leukocyte Esterase Urine WBC (Auto) Urine RBC (Auto) Ur Squamous Epith Cells Amorphous Sediment Urine Bacteria Hyaline Casts 08/12/18 08/12/18 08/12/18 13:37 14:53 15:52 WBC RBC Hgb Hct MCV MCH MCHC RDW Plt Count MPV Neut % (Auto) Lymph % (Auto) Ritchie % (Auto) Eos % (Auto) Baso % (Auto) Neut # (Auto) Lymph # (Auto) Ritchie # (Auto) Eos # (Auto) Baso # (Auto) Neutrophils % (Manual) Band Neutrophils % Lymphocytes % (Manual) Monocytes % (Manual) Platelet Estimate PT 16.8 H INR 1.5 APTT 147 H* D Puncture Site pCO2 pO2 HCO3 ABG pH ABG Total CO2 ABG O2 Saturation ABG Base Excess Danny Test ABG Potassium A-a O2 Difference Respiratory Index Sodium Chloride Glucose Lactate Vent Mode Mechanical Rate FiO2 Tidal Volume PEEP Potassium Carbon Dioxide Anion Gap BUN Creatinine Est GFR ( Amer) Est GFR (Non-Af Amer) POC Glucose (mg/dL) 132 H 131 H Random Glucose Lactic Acid Calcium Phosphorus Magnesium Total Bilirubin AST ALT Alkaline Phosphatase Total Creatine Kinase CK-MB (Mass) Troponin I Total Protein Albumin Globulin Albumin/Globulin Ratio Arterial Blood Potassium Urine Color Urine Clarity Urine pH Ur Specific Julian Urine Protein Urine Glucose (UA) Urine Ketones Urine Blood Urine Nitrate Urine Bilirubin Urine Urobilinogen Ur Leukocyte Esterase Urine WBC (Auto) Urine RBC (Auto) Ur Squamous Epith Cells Amorphous Sediment Urine Bacteria Hyaline Casts 08/12/18 08/12/18 08/12/18 16:20 16:21 16:21 WBC 16.5 H RBC 3.71 L Hgb 11.1 L Hct 34.0 L MCV 91.6 MCH 30.0 MCHC 32.7 L RDW 14.4 Plt Count 196 MPV 7.5 Neut % (Auto) 82.5 H Lymph % (Auto) 10.4 L Ritchie % (Auto) 7.0 Eos % (Auto) 0.0 Baso % (Auto) 0.1 Neut # (Auto) 13.7 H Lymph # (Auto) 1.7 Ritchie # (Auto) 1.2 H Eos # (Auto) 0.0 Baso # (Auto) 0.0 Neutrophils % (Manual) Band Neutrophils % Lymphocytes % (Manual) Monocytes % (Manual) Platelet Estimate PT INR APTT Puncture Site pCO2 pO2 HCO3 ABG pH ABG Total CO2 ABG O2 Saturation ABG Base Excess Danny Test ABG Potassium A-a O2 Difference Respiratory Index Sodium 140 Chloride 113 H Glucose Lactate Vent Mode Mechanical Rate FiO2 Tidal Volume PEEP Potassium 5.0 Carbon Dioxide 21 L Anion Gap 11 BUN 28 H Creatinine 1.5 Est GFR ( Amer) 54 Est GFR (Non-Af Amer) 45 POC Glucose (mg/dL) 128 H Random Glucose 121 H Lactic Acid Calcium 7.3 L Phosphorus 5.2 H Magnesium 1.7 Total Bilirubin 0.4 AST 99 H ALT 61 Alkaline Phosphatase 53 Total Creatine Kinase CK-MB (Mass) Troponin I Total Protein 6.0 L Albumin 3.2 L Globulin 2.8 Albumin/Globulin Ratio 1.1 Arterial Blood Potassium Urine Color Urine Clarity Urine pH Ur Specific Julian Urine Protein Urine Glucose (UA) Urine Ketones Urine Blood Urine Nitrate Urine Bilirubin Urine Urobilinogen Ur Leukocyte Esterase Urine WBC (Auto) Urine RBC (Auto) Ur Squamous Epith Cells Amorphous Sediment Urine Bacteria Hyaline Casts 08/12/18 17:08 WBC RBC Hgb Hct MCV MCH MCHC RDW Plt Count MPV Neut % (Auto) Lymph % (Auto) Ritchie % (Auto) Eos % (Auto) Baso % (Auto) Neut # (Auto) Lymph # (Auto) Ritchie # (Auto) Eos # (Auto) Baso # (Auto) Neutrophils % (Manual) Band Neutrophils % Lymphocytes % (Manual) Monocytes % (Manual) Platelet Estimate PT INR APTT Puncture Site pCO2 pO2 HCO3 ABG pH ABG Total CO2 ABG O2 Saturation ABG Base Excess Danny Test ABG Potassium A-a O2 Difference Respiratory Index Sodium Chloride Glucose Lactate Vent Mode Mechanical Rate FiO2 Tidal Volume PEEP Potassium Carbon Dioxide Anion Gap BUN Creatinine Est GFR ( Amer) Est GFR (Non-Af Amer) POC Glucose (mg/dL) 126 H Random Glucose Lactic Acid Calcium Phosphorus Magnesium Total Bilirubin AST ALT Alkaline Phosphatase Total Creatine Kinase CK-MB (Mass) Troponin I Total Protein Albumin Globulin Albumin/Globulin Ratio Arterial Blood Potassium Urine Color Urine Clarity Urine pH Ur Specific Julian Urine Protein Urine Glucose (UA) Urine Ketones Urine Blood Urine Nitrate Urine Bilirubin Urine Urobilinogen Ur Leukocyte Esterase Urine WBC (Auto) Urine RBC (Auto) Ur Squamous Epith Cells Amorphous Sediment Urine Bacteria Hyaline Casts Assessment & Plan (1) Cardiac arrest Status: Acute (2) Respiratory arrest Status: Acute - Assessment and Plan (Free Text) Plan: Continue full vent support Not a weaning candidate at present Close observation Lasix Supportive care Very poor prognosis DVT/GI prophalaxis
[2018-08-12] MEDS: Piperacillin/Tazobact 3.375 GM in Sodium Chloride 100 ML IVPB SCH (18:00)
--- NOTE | 2018-08-12 19:03 | CP.PCM.CON ---
History of Present Illness - History of Present Illness History of Present Illness: Consultation s/p cardiac arrest HPI: 83-year-old male with past medical history: Significant for coronary artery disease hypertension dyslipidemia Alzheimer's disease who was admitted to the asked ICU after being intubated with cardiac arrest in the field apparently patient was intubated by EMS to [place] after one episode of defibrillation apparently patient was walking behind his who provided most of the history as per the review of admitting H&P patient was walking across the street when the returning officer for her to be on the ground unresponsive EMS was called initiated CPR to rest after defibrillation EKG and are noted to have some ST changes but repeat EKG showed no evidence of EKG changes limited history as patient was intubated on presentation EKG subsequent EKGs were normal and initial troponin was negative. Past medical history history was significant for atrial fibrillation hypertension dyslipidemia dementia Alzheimer's disease. Past surgical history family history unable to obtain family medications unknown Review of Systems - Review of Systems Systems not reviewed;Unavailable: Acuity of Condition - Constitutional Constitutional: As Per HPI - EENT Eyes: As Per HPI Ears: As Per HPI Nose/Mouth/Throat: As Per HPI - Cardiovascular Cardiovascular: As Per HPI - Respiratory Respiratory: As Per HPI - Gastrointestinal Gastrointestinal: As Per HPI - Genitourinary Genitourinary: As Per HPI - Reproductive: Male Reproductive:Male: As Per HPI - Musculoskeletal Musculoskeletal: As Per HPI - Integumentary Integumentary: As Per HPI - Neurological Neurological: As Per HPI - Psychiatric Psychiatric: As Per HPI - Endocrine Endocrine: As Per HPI - Hematologic/Lymphatic Hematologic: As Per HPI Past Patient History - Infectious Disease Hx of Infectious Diseases: C.diff - Past Medical History & Family History Past Medical History?: Yes - Past Social History Smoking Status: Former Smoker - CARDIAC Hx Atrial Fibrillation: Yes Hx Cardia Arrhythmia: (A FIB) Hx Congestive Heart Failure: Yes Hx Hypercholesterolemia: Yes Hx Hypertension: Yes - PULMONARY Hx Respiratory Disorders: No - NEUROLOGICAL Hx Alzheimer's Disease: Yes Hx Dementia: Yes - HEENT Hx HEENT Problems: No - RENAL Hx Chronic Kidney Disease: No - ENDOCRINE/METABOLIC Hx Hypothyroidism: Yes - HEMATOLOGICAL/ONCOLOGICAL Hx Blood Disorders: No - INTEGUMENTARY Hx Dermatological Problems: No - MUSCULOSKELETAL/RHEUMATOLOGICAL Hx Falls: Yes - GASTROINTESTINAL Hx Gastrointestinal Disorders: No - GENITOURINARY/GYNECOLOGICAL Hx Prostate Problems: Yes - PSYCHIATRIC Hx Substance Use: No - SURGICAL HISTORY Hx Carotid Endarterectomy: Yes (RIGHT) - ANESTHESIA Hx Anesthesia: Yes Hx Anesthesia Reactions: No Hx Malignant Hyperthermia: No Meds Allergies/Adverse Reactions: Allergies Allergy/AdvReac Type Severity Reaction Status Date / Time No Known Allergies Allergy Verified 08/11/18 14:21 - Medications Medications: Current Medications Acetaminophen (Tylenol 650mg/20.3ml Solution Ud) 975 mg PO Q6H PRN PRN Reason: shivering Dextrose (Dextrose 50% Inj) 0 ml IV STAT PRN; Protocol PRN Reason: Hypoglycemia Protocol Dextrose (Glutose 15) 0 gm PO ONCE PRN; Protocol PRN Reason: Hypoglycemia Protocol Glucagon (Glucagen Diagnostic Kit) 0 mg IM STAT PRN; Protocol PRN Reason: Hypoglycemia Protocol Dextrose (Dextrose 5% In Water 1000 Ml) 1,000 mls @ 0 mls/hr IV .Q0M PRN; Protocol PRN Reason: Hypoglycemia Protocol Heparin Sodium/Sodium Chloride (Heparin 63274 Units/250ml 1/2 Normal Saline) 25,000 units in 250 mls @ 8.165 mls/hr IV .Q24H PRN; Protocol PRN Reason: ADJUST RATE PER PROTOCOL Last Titration: 08/12/18 15:15 Dose: 9 units/kg/hr, 6.124 mls/hr Propofol (Diprivan) 1,000 mg in 100 mls @ 2.041 mls/hr IV .Q24H PRN; Protocol PRN Reason: TITRATE PER MD ORDER Last Admin: 08/12/18 16:40 Dose: 50 mcg/kg/min, 20.412 mls/hr Midazolam HCl 100 mg/ Sodium (Chloride) 100 mls @ 1.36 mls/hr IV .Q24H JESSE; Protocol Last Titration: 08/12/18 02:00 Dose: 0 mg/kg/hr, 0 mls/hr Sodium Chloride (Sodium Chloride 0.9%) 1,000 mls @ 150 mls/hr IV .Q6H40M JESSE Last Admin: 08/12/18 17:03 Dose: 150 mls/hr Piperacillin Sod/Tazobactam (Sod 3.375 gm/ Sodium Chloride) 100 mls @ 200 mls/hr IVPB Q8H JESSE; Protocol Last Admin: 08/12/18 18:00 Dose: 200 mls/hr Vancomycin HCl 1 gm/ Sodium (Chloride) 250 mls @ 166.7 mls/hr IVPB ONCE ONE; Protocol Stop: 08/12/18 19:29 Last Admin: 08/12/18 18:25 Dose: 166.7 mls/hr Insulin Human Regular (Novolin R) 0 unit SC ACHS [facility]; Protocol Last Admin: 08/12/18 16:30 Dose: Not Given Metoprolol Tartrate (Lopressor) 50 mg PO BID [facility] Last Admin: 08/12/18 18:21 Dose: Not Given Pantoprazole Sodium (Protonix Inj) 40 mg IVP DAILY [facility] Last Admin: 08/12/18 10:42 Dose: 40 mg Physical Exam - Constitutional Appears: Toxic - Head Exam Head Exam: ATRAUMATIC, NORMAL INSPECTION, NORMOCEPHALIC - ENT Exam ENT Exam: Mucous Membranes Moist, Normal Exam - Neck Exam Neck exam: Positive for: Normal Inspection - Respiratory Exam Respiratory Exam: Clear to Auscultation Bilateral, NORMAL BREATHING PATTERN - Cardiovascular Exam Cardiovascular Exam: REGULAR RHYTHM, RRR, +S1, Systolic Murmur - GI/Abdominal Exam GI & Abdominal Exam: Normal Bowel Sounds, Soft. absent: Tenderness - Extremities Exam Extremities exam: Positive for: normal inspection - Back Exam Back exam: NORMAL INSPECTION - Neurological Exam Neurological exam: Alert, CN II-XII Intact, Normal Gait, Oriented x3, Reflexes Normal - Psychiatric Exam Psychiatric exam: Normal Affect, Normal Mood - Skin Skin Exam: Dry, Intact, Normal Color, Warm Results - Vital Signs Recent Vital Signs: Last Vital Signs Temp 91.3 F L 08/12/18 18:00 Pulse 71 08/12/18 18:23 Resp 22 08/12/18 18:23 BP 100/82 08/12/18 18:23 Pulse Ox 97 08/12/18 18:23 - Labs Result Diagrams: 08/12/18 16:21 08/12/18 16:21 Labs: Laboratory Results - last 24 hr 08/11/18 08/11/18 08/11/18 18:59 19:26 20:31 WBC RBC Hgb Hct MCV MCH MCHC RDW Plt Count MPV Neut % (Auto) Lymph % (Auto) [place] % (Auto) Eos % (Auto) Baso % (Auto) Neut # (Auto) Lymph # (Auto) [place] # (Auto) Eos # (Auto) Baso # (Auto) Neutrophils % (Manual) Band Neutrophils % Lymphocytes % (Manual) Monocytes % (Manual) Platelet Estimate PT INR APTT Puncture Site Lr pCO2 39 pO2 134 H HCO3 16.3 L ABG pH 7.22 L ABG Total CO2 17.2 L ABG O2 Saturation 99.3 H ABG Base Excess -11.1 L Danny Test Unable ABG Potassium 3.7 A-a O2 Difference 316.0 Respiratory Index 2.4 Sodium 142.0 Chloride 113.0 H Glucose 174 H Lactate 3.4 H Vent Mode Prvc Mechanical Rate 12 FiO2 70.0 Tidal Volume 500 PEEP 5 Potassium Carbon Dioxide Anion Gap BUN Creatinine Est GFR ( Amer) Est GFR (Non-Af Amer) POC Glucose (mg/dL) 248 H Random Glucose Lactic Acid Calcium Phosphorus Magnesium Total Bilirubin AST ALT Alkaline Phosphatase Total Creatine Kinase CK-MB (Mass) Troponin I Total Protein Albumin Globulin Albumin/Globulin Ratio Arterial Blood Potassium 3.7 Urine Color Yellow Urine Clarity Hazy Urine pH 5.0 Ur Specific [place] 1.019 Urine Protein 3+ H Urine Glucose (UA) Normal Urine Ketones Negative Urine Blood 2+ H Urine Nitrate Negative Urine Bilirubin Negative Urine Urobilinogen Normal Ur Leukocyte Esterase Neg Urine WBC (Auto) 8 H Urine RBC (Auto) 6 H Ur Squamous Epith Cells 1 Amorphous Sediment Moderate H Urine Bacteria Rare Hyaline Casts 6-10 H 08/11/18 08/11/18 08/11/18 21:19 22:10 22:50 WBC 14.8 H D RBC 3.94 L Hgb 11.9 L Hct 36.0 MCV 91.3 MCH 30.2 MCHC 33.1 RDW 14.0 Plt Count 222 MPV 7.6 Neut % (Auto) 91.6 H Lymph % (Auto) 4.0 L [place] % (Auto) 4.1 Eos % (Auto) 0.0 Baso % (Auto) 0.3 Neut # (Auto) 13.6 H Lymph # (Auto) 0.6 L [place] # (Auto) 0.6 Eos # (Auto) 0.0 Baso # (Auto) 0.0 Neutrophils % (Manual) 88 H Band Neutrophils % 4 H Lymphocytes % (Manual) 4 L Monocytes % (Manual) 4 Platelet Estimate Normal PT INR APTT Puncture Site pCO2 pO2 HCO3 ABG pH ABG Total CO2 ABG O2 Saturation ABG Base Excess Danny Test ABG Potassium A-a O2 Difference Respiratory Index Sodium Chloride Glucose Lactate Vent Mode Mechanical Rate FiO2 Tidal Volume PEEP Potassium Carbon Dioxide Anion Gap BUN Creatinine Est GFR ( Amer) Est GFR (Non-Af Amer) POC Glucose (mg/dL) 218 H 217 H Random Glucose Lactic Acid Calcium Phosphorus Magnesium Total Bilirubin AST ALT Alkaline Phosphatase Total Creatine Kinase CK-MB (Mass) Troponin I Total Protein Albumin Globulin Albumin/Globulin Ratio Arterial Blood Potassium Urine Color Urine Clarity Urine pH Ur Specific [place] Urine Protein Urine Glucose (UA) Urine Ketones Urine Blood Urine Nitrate Urine Bilirubin Urine Urobilinogen Ur Leukocyte Esterase Urine WBC (Auto) Urine RBC (Auto) Ur Squamous Epith Cells Amorphous Sediment Urine Bacteria Hyaline Casts 08/11/18 08/11/18 08/11/18 22:50 22:50 23:18 WBC RBC Hgb Hct MCV MCH MCHC RDW Plt Count MPV Neut % (Auto) Lymph % (Auto) [place] % (Auto) Eos % (Auto) Baso % (Auto) Neut # (Auto) Lymph # (Auto) [place] # (Auto) Eos # (Auto) Baso # (Auto) Neutrophils % (Manual) Band Neutrophils % Lymphocytes % (Manual) Monocytes % (Manual) Platelet Estimate PT INR APTT Puncture Site pCO2 pO2 HCO3 ABG pH ABG Total CO2 ABG O2 Saturation ABG Base Excess Danny Test ABG Potassium A-a O2 Difference Respiratory Index Sodium 136 Chloride 108 H Glucose Lactate Vent Mode Mechanical Rate FiO2 Tidal Volume PEEP Potassium 4.8 Carbon Dioxide 19 L Anion Gap 14 BUN 25 H Creatinine 1.2 Est GFR ( Amer) > 60 Est GFR (Non-Af Amer) 58 POC Glucose (mg/dL) 206 H Random Glucose 192 H Lactic Acid 3.7 H Calcium 7.7 L Phosphorus 6.4 H Magnesium 1.9 Total Bilirubin 0.4 AST 110 H ALT 73 H Alkaline Phosphatase 74 Total Creatine Kinase CK-MB (Mass) Troponin I Total Protein 6.6 Albumin 3.4 L Globulin 3.2 Albumin/Globulin Ratio 1.1 Arterial Blood Potassium Urine Color Urine Clarity Urine pH Ur Specific [place] Urine Protein Urine Glucose (UA) Urine Ketones Urine Blood Urine Nitrate Urine Bilirubin Urine Urobilinogen Ur Leukocyte Esterase Urine WBC (Auto) Urine RBC (Auto) Ur Squamous Epith Cells Amorphous Sediment Urine Bacteria Hyaline Casts 08/11/18 08/12/18 08/12/18 23:55 01:11 02:31 WBC RBC Hgb Hct MCV MCH MCHC RDW Plt Count MPV Neut % (Auto) Lymph % (Auto) [place] % (Auto) Eos % (Auto) Baso % (Auto) Neut # (Auto) Lymph # (Auto) [place] # (Auto) Eos # (Auto) Baso # (Auto) Neutrophils % (Manual) Band Neutrophils % Lymphocytes % (Manual) Monocytes % (Manual) Platelet Estimate PT INR APTT Puncture Site pCO2 pO2 HCO3 ABG pH ABG Total CO2 ABG O2 Saturation ABG Base Excess Danny Test ABG Potassium A-a O2 Difference Respiratory Index Sodium Chloride Glucose Lactate Vent Mode Mechanical Rate FiO2 Tidal Volume PEEP Potassium Carbon Dioxide Anion Gap BUN Creatinine Est GFR ( Amer) Est GFR (Non-Af Amer) POC Glucose (mg/dL) 231 H 181 H 190 H Random Glucose Lactic Acid Calcium Phosphorus Magnesium Total Bilirubin AST ALT Alkaline Phosphatase Total Creatine Kinase CK-MB (Mass) Troponin I Total Protein Albumin Globulin Albumin/Globulin Ratio Arterial Blood Potassium Urine Color Urine Clarity Urine pH Ur Specific [place] Urine Protein Urine Glucose (UA) Urine Ketones Urine Blood Urine Nitrate Urine Bilirubin Urine Urobilinogen Ur Leukocyte Esterase Urine WBC (Auto) Urine RBC (Auto) Ur Squamous Epith Cells Amorphous Sediment Urine Bacteria Hyaline Casts 08/12/18 08/12/18 08/12/18 02:52 03:17 04:01 WBC RBC Hgb Hct MCV MCH MCHC RDW Plt Count MPV Neut % (Auto) Lymph % (Auto) [place] % (Auto) Eos % (Auto) Baso % (Auto) Neut # (Auto) Lymph # (Auto) [place] # (Auto) Eos # (Auto) Baso # (Auto) Neutrophils % (Manual) Band Neutrophils % Lymphocytes % (Manual) Monocytes % (Manual) Platelet Estimate PT 17.8 H INR 1.6 D APTT 84 H D Puncture Site pCO2 pO2 HCO3 ABG pH ABG Total CO2 ABG O2 Saturation ABG Base Excess Danny Test ABG Potassium A-a O2 Difference Respiratory Index Sodium Chloride Glucose Lactate Vent Mode Mechanical Rate FiO2 Tidal Volume PEEP Potassium Carbon Dioxide Anion Gap BUN Creatinine Est GFR ( Amer) Est GFR (Non-Af Amer) POC Glucose (mg/dL) 176 H 183 H Random Glucose Lactic Acid Calcium Phosphorus Magnesium Total Bilirubin AST ALT Alkaline Phosphatase Total Creatine Kinase CK-MB (Mass) Troponin I Total Protein Albumin Globulin Albumin/Globulin Ratio Arterial Blood Potassium Urine Color Urine Clarity Urine pH Ur Specific [place] Urine Protein Urine Glucose (UA) Urine Ketones Urine Blood Urine Nitrate Urine Bilirubin Urine Urobilinogen Ur Leukocyte Esterase Urine WBC (Auto) Urine RBC (Auto) Ur Squamous Epith Cells Amorphous Sediment Urine Bacteria Hyaline Casts 08/12/18 08/12/18 08/12/18 04:25 04:33 06:29 WBC 12.9 H RBC 3.60 L Hgb 11.0 L Hct 33.3 L MCV 92.4 MCH 30.7 MCHC 33.2 RDW 14.5 Plt Count 197 MPV 8.7 Neut % (Auto) 81.4 H Lymph % (Auto) 10.5 L [place] % (Auto) 8.0 Eos % (Auto) 0.0 Baso % (Auto) 0.1 Neut # (Auto) 10.5 H Lymph # (Auto) 1.4 [place] # (Auto) 1.0 H Eos # (Auto) 0.0 Baso # (Auto) 0.0 Neutrophils % (Manual) Band Neutrophils % Lymphocytes % (Manual) Monocytes % (Manual) Platelet Estimate PT INR APTT Puncture Site Rr pCO2 40 pO2 177 H HCO3 17.3 L ABG pH 7.24 L ABG Total CO2 18.3 L ABG O2 Saturation 100.3 H ABG Base Excess -9.8 L Danny Test Pos ABG Potassium 4.7 A-a O2 Difference 272.0 Respiratory Index 1.5 Sodium 138.0 Chloride 110.0 H Glucose 130 H Lactate 2.6 H Vent Mode Prvc Mechanical Rate 12 FiO2 70.0 Tidal Volume 500 PEEP 5 Potassium Carbon Dioxide Anion Gap BUN Creatinine Est GFR ( Amer) Est GFR (Non-Af Amer) POC Glucose (mg/dL) 152 H Random Glucose Lactic Acid Calcium Phosphorus Magnesium Total Bilirubin AST ALT Alkaline Phosphatase Total Creatine Kinase CK-MB (Mass) Troponin I Total Protein Albumin Globulin Albumin/Globulin Ratio Arterial Blood Potassium 4.7 Urine Color Urine Clarity Urine pH Ur Specific [place] Urine Protein Urine Glucose (UA) Urine Ketones Urine Blood Urine Nitrate Urine Bilirubin Urine Urobilinogen Ur Leukocyte Esterase Urine WBC (Auto) Urine RBC (Auto) Ur Squamous Epith Cells Amorphous Sediment Urine Bacteria Hyaline Casts 08/12/18 08/12/18 08/12/18 06:29 06:34 07:03 WBC RBC Hgb Hct MCV MCH MCHC RDW Plt Count MPV Neut % (Auto) Lymph % (Auto) [place] % (Auto) Eos % (Auto) Baso % (Auto) Neut # (Auto) Lymph # (Auto) [place] # (Auto) Eos # (Auto) Baso # (Auto) Neutrophils % (Manual) Band Neutrophils % Lymphocytes % (Manual) Monocytes % (Manual) Platelet Estimate PT INR APTT Puncture Site pCO2 pO2 HCO3 ABG pH ABG Total CO2 ABG O2 Saturation ABG Base Excess Danny Test ABG Potassium A-a O2 Difference Respiratory Index Sodium 137 Chloride 110 H Glucose Lactate Vent Mode Mechanical Rate FiO2 Tidal Volume PEEP Potassium 5.2 Carbon Dioxide 19 L Anion Gap 12 BUN 27 H Creatinine 1.2 Est GFR ( Amer) > 60 Est GFR (Non-Af Amer) 58 POC Glucose (mg/dL) 145 H 148 H Random Glucose 125 H D Lactic Acid Calcium 7.1 L Phosphorus 4.2 Magnesium 1.9 Total Bilirubin 0.4 AST 115 H ALT 63 Alkaline Phosphatase 52 Total Creatine Kinase 1050 H CK-MB (Mass) 25.1 H Troponin I 2.3700 H* Total Protein 5.9 L Albumin 3.0 L Globulin 2.9 Albumin/Globulin Ratio 1.0 Arterial Blood Potassium Urine Color Urine Clarity Urine pH Ur Specific [place] Urine Protein Urine Glucose (UA) Urine Ketones Urine Blood Urine Nitrate Urine Bilirubin Urine Urobilinogen Ur Leukocyte Esterase Urine WBC (Auto) Urine RBC (Auto) Ur Squamous Epith Cells Amorphous Sediment Urine Bacteria Hyaline Casts 08/12/18 08/12/18 08/12/18 08:42 09:24 09:24 WBC 16.2 H RBC 3.84 L Hgb 11.8 L Hct 35.4 MCV 92.0 MCH 30.6 MCHC 33.2 RDW 14.4 Plt Count 212 MPV 7.8 Neut % (Auto) 82.4 H Lymph % (Auto) 10.3 L [place] % (Auto) 7.1 Eos % (Auto) 0.0 Baso % (Auto) 0.2 Neut # (Auto) 13.3 H Lymph # (Auto) 1.7 [place] # (Auto) 1.2 H Eos # (Auto) 0.0 Baso # (Auto) 0.0 Neutrophils % (Manual) Band Neutrophils % Lymphocytes % (Manual) Monocytes % (Manual) Platelet Estimate PT 16.8 H INR 1.5 APTT Cancelled Puncture Site pCO2 pO2 HCO3 ABG pH ABG Total CO2 ABG O2 Saturation ABG Base Excess Danny Test ABG Potassium A-a O2 Difference Respiratory Index Sodium Chloride Glucose Lactate Vent Mode Mechanical Rate FiO2 Tidal Volume PEEP Potassium Carbon Dioxide Anion Gap BUN Creatinine Est GFR ( Amer) Est GFR (Non-Af Amer) POC Glucose (mg/dL) 143 H Random Glucose Lactic Acid Calcium Phosphorus Magnesium Total Bilirubin AST ALT Alkaline Phosphatase Total Creatine Kinase CK-MB (Mass) Troponin I Total Protein Albumin Globulin Albumin/Globulin Ratio Arterial Blood Potassium Urine Color Urine Clarity Urine pH Ur Specific [place] Urine Protein Urine Glucose (UA) Urine Ketones Urine Blood Urine Nitrate Urine Bilirubin Urine Urobilinogen Ur Leukocyte Esterase Urine WBC (Auto) Urine RBC (Auto) Ur Squamous Epith Cells Amorphous Sediment Urine Bacteria Hyaline Casts 08/12/18 08/12/18 08/12/18 09:24 09:25 10:28 WBC RBC Hgb Hct MCV MCH MCHC RDW Plt Count MPV Neut % (Auto) Lymph % (Auto) [place] % (Auto) Eos % (Auto) Baso % (Auto) Neut # (Auto) Lymph # (Auto) [place] # (Auto) Eos # (Auto) Baso # (Auto) Neutrophils % (Manual) Band Neutrophils % Lymphocytes % (Manual) Monocytes % (Manual) Platelet Estimate PT INR APTT Puncture Site pCO2 pO2 HCO3 ABG pH ABG Total CO2 ABG O2 Saturation ABG Base Excess Danny Test ABG Potassium A-a O2 Difference Respiratory Index Sodium 137 Chloride 108 H Glucose Lactate Vent Mode Mechanical Rate FiO2 Tidal Volume PEEP Potassium 5.2 Carbon Dioxide 19 L Anion Gap 16 BUN 27 H Creatinine 1.4 Est GFR ( Amer) 59 Est GFR (Non-Af Amer) 49 POC Glucose (mg/dL) 141 H 136 H Random Glucose 130 H Lactic Acid Calcium 7.3 L Phosphorus 4.8 H Magnesium 1.8 Total Bilirubin 0.3 AST 111 H ALT 66 Alkaline Phosphatase 65 Total Creatine Kinase CK-MB (Mass) Troponin I 2.2100 H* Total Protein 6.6 Albumin 3.5 Globulin 3.2 Albumin/Globulin Ratio 1.1 Arterial Blood Potassium Urine Color Urine Clarity Urine pH Ur Specific [place] Urine Protein Urine Glucose (UA) Urine Ketones Urine Blood Urine Nitrate Urine Bilirubin Urine Urobilinogen Ur Leukocyte Esterase Urine WBC (Auto) Urine RBC (Auto) Ur Squamous Epith Cells Amorphous Sediment Urine Bacteria Hyaline Casts 08/12/18 08/12/18 08/12/18 11:06 12:24 13:35 WBC RBC Hgb Hct MCV MCH MCHC RDW Plt Count MPV Neut % (Auto) Lymph % (Auto) [place] % (Auto) Eos % (Auto) Baso % (Auto) Neut # (Auto) Lymph # (Auto) [place] # (Auto) Eos # (Auto) Baso # (Auto) Neutrophils % (Manual) Band Neutrophils % Lymphocytes % (Manual) Monocytes % (Manual) Platelet Estimate PT INR APTT Puncture Site pCO2 pO2 HCO3 ABG pH ABG Total CO2 ABG O2 Saturation ABG Base Excess Danny Test ABG Potassium A-a O2 Difference Respiratory Index Sodium Chloride Glucose Lactate Vent Mode Mechanical Rate FiO2 Tidal Volume PEEP Potassium Carbon Dioxide Anion Gap BUN Creatinine Est GFR ( Amer) Est GFR (Non-Af Amer) POC Glucose (mg/dL) 154 H 129 H 130 H Random Glucose Lactic Acid Calcium Phosphorus Magnesium Total Bilirubin AST ALT Alkaline Phosphatase Total Creatine Kinase CK-MB (Mass) Troponin I Total Protein Albumin Globulin Albumin/Globulin Ratio Arterial Blood Potassium Urine Color Urine Clarity Urine pH Ur Specific [place] Urine Protein Urine Glucose (UA) Urine Ketones Urine Blood Urine Nitrate Urine Bilirubin Urine Urobilinogen Ur Leukocyte Esterase Urine WBC (Auto) Urine RBC (Auto) Ur Squamous Epith Cells Amorphous Sediment Urine Bacteria Hyaline Casts 08/12/18 08/12/18 08/12/18 13:37 14:53 15:52 WBC RBC Hgb Hct MCV MCH MCHC RDW Plt Count MPV Neut % (Auto) Lymph % (Auto) [place] % (Auto) Eos % (Auto) Baso % (Auto) Neut # (Auto) Lymph # (Auto) [place] # (Auto) Eos # (Auto) Baso # (Auto) Neutrophils % (Manual) Band Neutrophils % Lymphocytes % (Manual) Monocytes % (Manual) Platelet Estimate PT 16.8 H INR 1.5 APTT 147 H* D Puncture Site pCO2 pO2 HCO3 ABG pH ABG Total CO2 ABG O2 Saturation ABG Base Excess Danny Test ABG Potassium A-a O2 Difference Respiratory Index Sodium Chloride Glucose Lactate Vent Mode Mechanical Rate FiO2 Tidal Volume PEEP Potassium Carbon Dioxide Anion Gap BUN Creatinine Est GFR ( Amer) Est GFR (Non-Af Amer) POC Glucose (mg/dL) 132 H 131 H Random Glucose Lactic Acid Calcium Phosphorus Magnesium Total Bilirubin AST ALT Alkaline Phosphatase Total Creatine Kinase CK-MB (Mass) Troponin I Total Protein Albumin Globulin Albumin/Globulin Ratio Arterial Blood Potassium Urine Color Urine Clarity Urine pH Ur Specific [place] Urine Protein Urine Glucose (UA) Urine Ketones Urine Blood Urine Nitrate Urine Bilirubin Urine Urobilinogen Ur Leukocyte Esterase Urine WBC (Auto) Urine RBC (Auto) Ur Squamous Epith Cells Amorphous Sediment Urine Bacteria Hyaline Casts 08/12/18 08/12/18 08/12/18 16:20 16:21 16:21 WBC 16.5 H RBC 3.71 L Hgb 11.1 L Hct 34.0 L MCV 91.6 MCH 30.0 MCHC 32.7 L RDW 14.4 Plt Count 196 MPV 7.5 Neut % (Auto) 82.5 H Lymph % (Auto) 10.4 L [place] % (Auto) 7.0 Eos % (Auto) 0.0 Baso % (Auto) 0.1 Neut # (Auto) 13.7 H Lymph # (Auto) 1.7 [place] # (Auto) 1.2 H Eos # (Auto) 0.0 Baso # (Auto) 0.0 Neutrophils % (Manual) Band Neutrophils % Lymphocytes % (Manual) Monocytes % (Manual) Platelet Estimate PT INR APTT Puncture Site pCO2 pO2 HCO3 ABG pH ABG Total CO2 ABG O2 Saturation ABG Base Excess Danny Test ABG Potassium A-a O2 Difference Respiratory Index Sodium 140 Chloride 113 H Glucose Lactate Vent Mode Mechanical Rate FiO2 Tidal Volume PEEP Potassium 5.0 Carbon Dioxide 21 L Anion Gap 11 BUN 28 H Creatinine 1.5 Est GFR ( Amer) 54 Est GFR (Non-Af Amer) 45 POC Glucose (mg/dL) 128 H Random Glucose 121 H Lactic Acid Calcium 7.3 L Phosphorus 5.2 H Magnesium 1.7 Total Bilirubin 0.4 AST 99 H ALT 61 Alkaline Phosphatase 53 Total Creatine Kinase CK-MB (Mass) Troponin I Total Protein 6.0 L Albumin 3.2 L Globulin 2.8 Albumin/Globulin Ratio 1.1 Arterial Blood Potassium Urine Color Urine Clarity Urine pH Ur Specific [place] Urine Protein Urine Glucose (UA) Urine Ketones Urine Blood Urine Nitrate Urine Bilirubin Urine Urobilinogen Ur Leukocyte Esterase Urine WBC (Auto) Urine RBC (Auto) Ur Squamous Epith Cells Amorphous Sediment Urine Bacteria Hyaline Casts 08/12/18 08/12/18 17:08 18:10 WBC RBC Hgb Hct MCV MCH MCHC RDW Plt Count MPV Neut % (Auto) Lymph % (Auto) [place] % (Auto) Eos % (Auto) Baso % (Auto) Neut # (Auto) Lymph # (Auto) [place] # (Auto) Eos # (Auto) Baso # (Auto) Neutrophils % (Manual) Band Neutrophils % Lymphocytes % (Manual) Monocytes % (Manual) Platelet Estimate PT INR APTT Puncture Site pCO2 pO2 HCO3 ABG pH ABG Total CO2 ABG O2 Saturation ABG Base Excess Danny Test ABG Potassium A-a O2 Difference Respiratory Index Sodium Chloride Glucose Lactate Vent Mode Mechanical Rate FiO2 Tidal Volume PEEP Potassium Carbon Dioxide Anion Gap BUN Creatinine Est GFR ( Amer) Est GFR (Non-Af Amer) POC Glucose (mg/dL) 126 H 118 H Random Glucose Lactic Acid Calcium Phosphorus Magnesium Total Bilirubin AST ALT Alkaline Phosphatase Total Creatine Kinase CK-MB (Mass) Troponin I Total Protein Albumin Globulin Albumin/Globulin Ratio Arterial Blood Potassium Urine Color Urine Clarity Urine pH Ur Specific [place] Urine Protein Urine Glucose (UA) Urine Ketones Urine Blood Urine Nitrate Urine Bilirubin Urine Urobilinogen Ur Leukocyte Esterase Urine WBC (Auto) Urine RBC (Auto) Ur Squamous Epith Cells Amorphous Sediment Urine Bacteria Hyaline Casts Assessment & Plan (1) Afib Status: Acute Priority: Medium (2) Cardiac arrest Status: Acute (3) Respiratory arrest Status: Acute (4) Acute kidney injury Status: Acute (5) Hypertension Status: Acute
--- NOTE | 2018-08-12 19:19 | CP.PCM.CON ---
History of Present Illness - History of Present Illness History of Present Illness: dictated Past Patient History - Infectious Disease Hx of Infectious Diseases: C.diff - Past Medical History & Family History Past Medical History?: Yes - Past Social History Smoking Status: Former Smoker - CARDIAC Hx Atrial Fibrillation: Yes Hx Cardia Arrhythmia: (A FIB) Hx Congestive Heart Failure: Yes Hx Hypercholesterolemia: Yes Hx Hypertension: Yes - PULMONARY Hx Respiratory Disorders: No - NEUROLOGICAL Hx Alzheimer's Disease: Yes Hx Dementia: Yes - HEENT Hx HEENT Problems: No - RENAL Hx Chronic Kidney Disease: No - ENDOCRINE/METABOLIC Hx Hypothyroidism: Yes - HEMATOLOGICAL/ONCOLOGICAL Hx Blood Disorders: No - INTEGUMENTARY Hx Dermatological Problems: No - MUSCULOSKELETAL/RHEUMATOLOGICAL Hx Falls: Yes - GASTROINTESTINAL Hx Gastrointestinal Disorders: No - GENITOURINARY/GYNECOLOGICAL Hx Prostate Problems: Yes - PSYCHIATRIC Hx Substance Use: No - SURGICAL HISTORY Hx Carotid Endarterectomy: Yes (RIGHT) - ANESTHESIA Hx Anesthesia: Yes Hx Anesthesia Reactions: No Hx Malignant Hyperthermia: No Meds Allergies/Adverse Reactions: Allergies Allergy/AdvReac Type Severity Reaction Status Date / Time No Known Allergies Allergy Verified 08/11/18 14:21 - Medications Medications: Current Medications Acetaminophen (Tylenol 650mg/20.3ml Solution Ud) 975 mg PO Q6H PRN PRN Reason: shivering Dextrose (Dextrose 50% Inj) 0 ml IV STAT PRN; Protocol PRN Reason: Hypoglycemia Protocol Dextrose (Glutose 15) 0 gm PO ONCE PRN; Protocol PRN Reason: Hypoglycemia Protocol Glucagon (Glucagen Diagnostic Kit) 0 mg IM STAT PRN; Protocol PRN Reason: Hypoglycemia Protocol Dextrose (Dextrose 5% In Water 1000 Ml) 1,000 mls @ 0 mls/hr IV .Q0M PRN; Protocol PRN Reason: Hypoglycemia Protocol Heparin Sodium/Sodium Chloride (Heparin 24931 Units/250ml 1/2 Normal Saline) 25,000 units in 250 mls @ 8.165 mls/hr IV .Q24H PRN; Protocol PRN Reason: ADJUST RATE PER PROTOCOL Last Titration: 08/12/18 15:15 Dose: 9 units/kg/hr, 6.124 mls/hr Propofol (Diprivan) 1,000 mg in 100 mls @ 2.041 mls/hr IV .Q24H PRN; Protocol PRN Reason: TITRATE PER MD ORDER Last Admin: 08/12/18 16:40 Dose: 50 mcg/kg/min, 20.412 mls/hr Midazolam HCl 100 mg/ Sodium (Chloride) 100 mls @ 1.36 mls/hr IV .Q24H [facility]; Protocol Last Titration: 08/12/18 02:00 Dose: 0 mg/kg/hr, 0 mls/hr Sodium Chloride (Sodium Chloride 0.9%) 1,000 mls @ 150 mls/hr IV .Q6H40M [facility] Last Admin: 08/12/18 17:03 Dose: 150 mls/hr Piperacillin Sod/Tazobactam (Sod 3.375 gm/ Sodium Chloride) 100 mls @ 200 mls/hr IVPB Q8H [facility]; Protocol Last Admin: 08/12/18 18:00 Dose: 200 mls/hr Vancomycin HCl 1 gm/ Sodium (Chloride) 250 mls @ 166.7 mls/hr IVPB ONCE ONE; Protocol Stop: 08/12/18 19:29 Last Admin: 08/12/18 18:25 Dose: 166.7 mls/hr Insulin Human Regular (Novolin R) 0 unit SC ACHS [facility]; Protocol Last Admin: 08/12/18 16:30 Dose: Not Given Metoprolol Tartrate (Lopressor) 50 mg PO BID [facility] Last Admin: 08/12/18 18:21 Dose: Not Given Pantoprazole Sodium (Protonix Inj) 40 mg IVP DAILY [facility] Last Admin: 08/12/18 10:42 Dose: 40 mg Results - Vital Signs Recent Vital Signs: Last Vital Signs Temp 91.3 F L 08/12/18 18:00 Pulse 71 08/12/18 18:23 Resp 22 08/12/18 18:23 BP 100/82 08/12/18 18:23 Pulse Ox 97 08/12/18 18:23 - Labs Result Diagrams: 08/12/18 16:21 08/12/18 16:21 Labs: Laboratory Results - last 24 hr 08/11/18 08/11/18 08/11/18 19:26 20:31 21:19 WBC RBC Hgb Hct MCV MCH MCHC RDW Plt Count MPV Neut % (Auto) Lymph % (Auto) [place] % (Auto) Eos % (Auto) Baso % (Auto) Neut # (Auto) Lymph # (Auto) [place] # (Auto) Eos # (Auto) Baso # (Auto) Neutrophils % (Manual) Band Neutrophils % Lymphocytes % (Manual) Monocytes % (Manual) Platelet Estimate PT INR APTT Puncture Site pCO2 pO2 HCO3 ABG pH ABG Total CO2 ABG O2 Saturation ABG Base Excess Danny Test ABG Potassium A-a O2 Difference Respiratory Index Glucose Lactate Vent Mode Mechanical Rate FiO2 Tidal Volume PEEP Sodium Potassium Chloride Carbon Dioxide Anion Gap BUN Creatinine Est GFR ( Amer) Est GFR (Non-Af Amer) POC Glucose (mg/dL) 248 H 218 H Random Glucose Lactic Acid Calcium Phosphorus Magnesium Total Bilirubin AST ALT Alkaline Phosphatase Total Creatine Kinase CK-MB (Mass) Troponin I Total Protein Albumin Globulin Albumin/Globulin Ratio Arterial Blood Potassium Urine Color Yellow Urine Clarity Hazy Urine pH 5.0 Ur Specific [place] 1.019 Urine Protein 3+ H Urine Glucose (UA) Normal Urine Ketones Negative Urine Blood 2+ H Urine Nitrate Negative Urine Bilirubin Negative Urine Urobilinogen Normal Ur Leukocyte Esterase Neg Urine WBC (Auto) 8 H Urine RBC (Auto) 6 H Ur Squamous Epith Cells 1 Amorphous Sediment Moderate H Urine Bacteria Rare Hyaline Casts 6-10 H 08/11/18 08/11/18 08/11/18 22:10 22:50 22:50 WBC 14.8 H D RBC 3.94 L Hgb 11.9 L Hct 36.0 MCV 91.3 MCH 30.2 MCHC 33.1 RDW 14.0 Plt Count 222 MPV 7.6 Neut % (Auto) 91.6 H Lymph % (Auto) 4.0 L [place] % (Auto) 4.1 Eos % (Auto) 0.0 Baso % (Auto) 0.3 Neut # (Auto) 13.6 H Lymph # (Auto) 0.6 L [place] # (Auto) 0.6 Eos # (Auto) 0.0 Baso # (Auto) 0.0 Neutrophils % (Manual) 88 H Band Neutrophils % 4 H Lymphocytes % (Manual) 4 L Monocytes % (Manual) 4 Platelet Estimate Normal PT INR APTT Puncture Site pCO2 pO2 HCO3 ABG pH ABG Total CO2 ABG O2 Saturation ABG Base Excess Danny Test ABG Potassium A-a O2 Difference Respiratory Index Glucose Lactate Vent Mode Mechanical Rate FiO2 Tidal Volume PEEP Sodium 136 Potassium 4.8 Chloride 108 H Carbon Dioxide 19 L Anion Gap 14 BUN 25 H Creatinine 1.2 Est GFR ( Amer) > 60 Est GFR (Non-Af Amer) 58 POC Glucose (mg/dL) 217 H Random Glucose 192 H Lactic Acid Calcium 7.7 L Phosphorus 6.4 H Magnesium 1.9 Total Bilirubin 0.4 AST 110 H ALT 73 H Alkaline Phosphatase 74 Total Creatine Kinase CK-MB (Mass) Troponin I Total Protein 6.6 Albumin 3.4 L Globulin 3.2 Albumin/Globulin Ratio 1.1 Arterial Blood Potassium Urine Color Urine Clarity Urine pH Ur Specific [place] Urine Protein Urine Glucose (UA) Urine Ketones Urine Blood Urine Nitrate Urine Bilirubin Urine Urobilinogen Ur Leukocyte Esterase Urine WBC (Auto) Urine RBC (Auto) Ur Squamous Epith Cells Amorphous Sediment Urine Bacteria Hyaline Casts 08/11/18 08/11/18 08/11/18 22:50 23:18 23:55 WBC RBC Hgb Hct MCV MCH MCHC RDW Plt Count MPV Neut % (Auto) Lymph % (Auto) [place] % (Auto) Eos % (Auto) Baso % (Auto) Neut # (Auto) Lymph # (Auto) [place] # (Auto) Eos # (Auto) Baso # (Auto) Neutrophils % (Manual) Band Neutrophils % Lymphocytes % (Manual) Monocytes % (Manual) Platelet Estimate PT INR APTT Puncture Site pCO2 pO2 HCO3 ABG pH ABG Total CO2 ABG O2 Saturation ABG Base Excess Danny Test ABG Potassium A-a O2 Difference Respiratory Index Glucose Lactate Vent Mode Mechanical Rate FiO2 Tidal Volume PEEP Sodium Potassium Chloride Carbon Dioxide Anion Gap BUN Creatinine Est GFR ( Amer) Est GFR (Non-Af Amer) POC Glucose (mg/dL) 206 H 231 H Random Glucose Lactic Acid 3.7 H Calcium Phosphorus Magnesium Total Bilirubin AST ALT Alkaline Phosphatase Total Creatine Kinase CK-MB (Mass) Troponin I Total Protein Albumin Globulin Albumin/Globulin Ratio Arterial Blood Potassium Urine Color Urine Clarity Urine pH Ur Specific [place] Urine Protein Urine Glucose (UA) Urine Ketones Urine Blood Urine Nitrate Urine Bilirubin Urine Urobilinogen Ur Leukocyte Esterase Urine WBC (Auto) Urine RBC (Auto) Ur Squamous Epith Cells Amorphous Sediment Urine Bacteria Hyaline Casts 08/12/18 08/12/18 08/12/18 01:11 02:31 02:52 WBC RBC Hgb Hct MCV MCH MCHC RDW Plt Count MPV Neut % (Auto) Lymph % (Auto) [place] % (Auto) Eos % (Auto) Baso % (Auto) Neut # (Auto) Lymph # (Auto) [place] # (Auto) Eos # (Auto) Baso # (Auto) Neutrophils % (Manual) Band Neutrophils % Lymphocytes % (Manual) Monocytes % (Manual) Platelet Estimate PT 17.8 H INR 1.6 D APTT 84 H D Puncture Site pCO2 pO2 HCO3 ABG pH ABG Total CO2 ABG O2 Saturation ABG Base Excess Danny Test ABG Potassium A-a O2 Difference Respiratory Index Glucose Lactate Vent Mode Mechanical Rate FiO2 Tidal Volume PEEP Sodium Potassium Chloride Carbon Dioxide Anion Gap BUN Creatinine Est GFR ( Amer) Est GFR (Non-Af Amer) POC Glucose (mg/dL) 181 H 190 H Random Glucose Lactic Acid Calcium Phosphorus Magnesium Total Bilirubin AST ALT Alkaline Phosphatase Total Creatine Kinase CK-MB (Mass) Troponin I Total Protein Albumin Globulin Albumin/Globulin Ratio Arterial Blood Potassium Urine Color Urine Clarity Urine pH Ur Specific [place] Urine Protein Urine Glucose (UA) Urine Ketones Urine Blood Urine Nitrate Urine Bilirubin Urine Urobilinogen Ur Leukocyte Esterase Urine WBC (Auto) Urine RBC (Auto) Ur Squamous Epith Cells Amorphous Sediment Urine Bacteria Hyaline Casts 08/12/18 08/12/18 08/12/18 03:17 04:01 04:25 WBC RBC Hgb Hct MCV MCH MCHC RDW Plt Count MPV Neut % (Auto) Lymph % (Auto) [place] % (Auto) Eos % (Auto) Baso % (Auto) Neut # (Auto) Lymph # (Auto) [place] # (Auto) Eos # (Auto) Baso # (Auto) Neutrophils % (Manual) Band Neutrophils % Lymphocytes % (Manual) Monocytes % (Manual) Platelet Estimate PT INR APTT Puncture Site Rr pCO2 40 pO2 177 H HCO3 17.3 L ABG pH 7.24 L ABG Total CO2 18.3 L ABG O2 Saturation 100.3 H ABG Base Excess -9.8 L Danny Test Pos ABG Potassium 4.7 A-a O2 Difference 272.0 Respiratory Index 1.5 Glucose 130 H Lactate 2.6 H Vent Mode Prvc Mechanical Rate 12 FiO2 70.0 Tidal Volume 500 PEEP 5 Sodium 138.0 Potassium Chloride 110.0 H Carbon Dioxide Anion Gap BUN Creatinine Est GFR ( Amer) Est GFR (Non-Af Amer) POC Glucose (mg/dL) 176 H 183 H Random Glucose Lactic Acid Calcium Phosphorus Magnesium Total Bilirubin AST ALT Alkaline Phosphatase Total Creatine Kinase CK-MB (Mass) Troponin I Total Protein Albumin Globulin Albumin/Globulin Ratio Arterial Blood Potassium 4.7 Urine Color Urine Clarity Urine pH Ur Specific [place] Urine Protein Urine Glucose (UA) Urine Ketones Urine Blood Urine Nitrate Urine Bilirubin Urine Urobilinogen Ur Leukocyte Esterase Urine WBC (Auto) Urine RBC (Auto) Ur Squamous Epith Cells Amorphous Sediment Urine Bacteria Hyaline Casts 08/12/18 08/12/18 08/12/18 04:33 06:29 06:29 WBC 12.9 H RBC 3.60 L Hgb 11.0 L Hct 33.3 L MCV 92.4 MCH 30.7 MCHC 33.2 RDW 14.5 Plt Count 197 MPV 8.7 Neut % (Auto) 81.4 H Lymph % (Auto) 10.5 L [place] % (Auto) 8.0 Eos % (Auto) 0.0 Baso % (Auto) 0.1 Neut # (Auto) 10.5 H Lymph # (Auto) 1.4 [place] # (Auto) 1.0 H Eos # (Auto) 0.0 Baso # (Auto) 0.0 Neutrophils % (Manual) Band Neutrophils % Lymphocytes % (Manual) Monocytes % (Manual) Platelet Estimate PT INR APTT Puncture Site pCO2 pO2 HCO3 ABG pH ABG Total CO2 ABG O2 Saturation ABG Base Excess Danny Test ABG Potassium A-a O2 Difference Respiratory Index Glucose Lactate Vent Mode Mechanical Rate FiO2 Tidal Volume PEEP Sodium 137 Potassium 5.2 Chloride 110 H Carbon Dioxide 19 L Anion Gap 12 BUN 27 H Creatinine 1.2 Est GFR ( Amer) > 60 Est GFR (Non-Af Amer) 58 POC Glucose (mg/dL) 152 H Random Glucose 125 H D Lactic Acid Calcium 7.1 L Phosphorus 4.2 Magnesium 1.9 Total Bilirubin 0.4 AST 115 H ALT 63 Alkaline Phosphatase 52 Total Creatine Kinase 1050 H CK-MB (Mass) 25.1 H Troponin I 2.3700 H* Total Protein 5.9 L Albumin 3.0 L Globulin 2.9 Albumin/Globulin Ratio 1.0 Arterial Blood Potassium Urine Color Urine Clarity Urine pH Ur Specific [place] Urine Protein Urine Glucose (UA) Urine Ketones Urine Blood Urine Nitrate Urine Bilirubin Urine Urobilinogen Ur Leukocyte Esterase Urine WBC (Auto) Urine RBC (Auto) Ur Squamous Epith Cells Amorphous Sediment Urine Bacteria Hyaline Casts 08/12/18 08/12/18 08/12/18 06:34 07:03 08:42 WBC RBC Hgb Hct MCV MCH MCHC RDW Plt Count MPV Neut % (Auto) Lymph % (Auto) [place] % (Auto) Eos % (Auto) Baso % (Auto) Neut # (Auto) Lymph # (Auto) [place] # (Auto) Eos # (Auto) Baso # (Auto) Neutrophils % (Manual) Band Neutrophils % Lymphocytes % (Manual) Monocytes % (Manual) Platelet Estimate PT INR APTT Puncture Site pCO2 pO2 HCO3 ABG pH ABG Total CO2 ABG O2 Saturation ABG Base Excess Danny Test ABG Potassium A-a O2 Difference Respiratory Index Glucose Lactate Vent Mode Mechanical Rate FiO2 Tidal Volume PEEP Sodium Potassium Chloride Carbon Dioxide Anion Gap BUN Creatinine Est GFR ( Amer) Est GFR (Non-Af Amer) POC Glucose (mg/dL) 145 H 148 H 143 H Random Glucose Lactic Acid Calcium Phosphorus Magnesium Total Bilirubin AST ALT Alkaline Phosphatase Total Creatine Kinase CK-MB (Mass) Troponin I Total Protein Albumin Globulin Albumin/Globulin Ratio Arterial Blood Potassium Urine Color Urine Clarity Urine pH Ur Specific [place] Urine Protein Urine Glucose (UA) Urine Ketones Urine Blood Urine Nitrate Urine Bilirubin Urine Urobilinogen Ur Leukocyte Esterase Urine WBC (Auto) Urine RBC (Auto) Ur Squamous Epith Cells Amorphous Sediment Urine Bacteria Hyaline Casts 08/12/18 08/12/18 08/12/18 09:24 09:24 09:24 WBC 16.2 H RBC 3.84 L Hgb 11.8 L Hct 35.4 MCV 92.0 MCH 30.6 MCHC 33.2 RDW 14.4 Plt Count 212 MPV 7.8 Neut % (Auto) 82.4 H Lymph % (Auto) 10.3 L [place] % (Auto) 7.1 Eos % (Auto) 0.0 Baso % (Auto) 0.2 Neut # (Auto) 13.3 H Lymph # (Auto) 1.7 [place] # (Auto) 1.2 H Eos # (Auto) 0.0 Baso # (Auto) 0.0 Neutrophils % (Manual) Band Neutrophils % Lymphocytes % (Manual) Monocytes % (Manual) Platelet Estimate PT 16.8 H INR 1.5 APTT Cancelled Puncture Site pCO2 pO2 HCO3 ABG pH ABG Total CO2 ABG O2 Saturation ABG Base Excess Danny Test ABG Potassium A-a O2 Difference Respiratory Index Glucose Lactate Vent Mode Mechanical Rate FiO2 Tidal Volume PEEP Sodium 137 Potassium 5.2 Chloride 108 H Carbon Dioxide 19 L Anion Gap 16 BUN 27 H Creatinine 1.4 Est GFR ( Amer) 59 Est GFR (Non-Af Amer) 49 POC Glucose (mg/dL) Random Glucose 130 H Lactic Acid Calcium 7.3 L Phosphorus 4.8 H Magnesium 1.8 Total Bilirubin 0.3 AST 111 H ALT 66 Alkaline Phosphatase 65 Total Creatine Kinase CK-MB (Mass) Troponin I 2.2100 H* Total Protein 6.6 Albumin 3.5 Globulin 3.2 Albumin/Globulin Ratio 1.1 Arterial Blood Potassium Urine Color Urine Clarity Urine pH Ur Specific [place] Urine Protein Urine Glucose (UA) Urine Ketones Urine Blood Urine Nitrate Urine Bilirubin Urine Urobilinogen Ur Leukocyte Esterase Urine WBC (Auto) Urine RBC (Auto) Ur Squamous Epith Cells Amorphous Sediment Urine Bacteria Hyaline Casts 08/12/18 08/12/18 08/12/18 09:25 10:28 11:06 WBC RBC Hgb Hct MCV MCH MCHC RDW Plt Count MPV Neut % (Auto) Lymph % (Auto) [place] % (Auto) Eos % (Auto) Baso % (Auto) Neut # (Auto) Lymph # (Auto) [place] # (Auto) Eos # (Auto) Baso # (Auto) Neutrophils % (Manual) Band Neutrophils % Lymphocytes % (Manual) Monocytes % (Manual) Platelet Estimate PT INR APTT Puncture Site pCO2 pO2 HCO3 ABG pH ABG Total CO2 ABG O2 Saturation ABG Base Excess Danny Test ABG Potassium A-a O2 Difference Respiratory Index Glucose Lactate Vent Mode Mechanical Rate FiO2 Tidal Volume PEEP Sodium Potassium Chloride Carbon Dioxide Anion Gap BUN Creatinine Est GFR ( Amer) Est GFR (Non-Af Amer) POC Glucose (mg/dL) 141 H 136 H 154 H Random Glucose Lactic Acid Calcium Phosphorus Magnesium Total Bilirubin AST ALT Alkaline Phosphatase Total Creatine Kinase CK-MB (Mass) Troponin I Total Protein Albumin Globulin Albumin/Globulin Ratio Arterial Blood Potassium Urine Color Urine Clarity Urine pH Ur Specific [place] Urine Protein Urine Glucose (UA) Urine Ketones Urine Blood Urine Nitrate Urine Bilirubin Urine Urobilinogen Ur Leukocyte Esterase Urine WBC (Auto) Urine RBC (Auto) Ur Squamous Epith Cells Amorphous Sediment Urine Bacteria Hyaline Casts 08/12/18 08/12/18 08/12/18 12:24 13:35 13:37 WBC RBC Hgb Hct MCV MCH MCHC RDW Plt Count MPV Neut % (Auto) Lymph % (Auto) [place] % (Auto) Eos % (Auto) Baso % (Auto) Neut # (Auto) Lymph # (Auto) [place] # (Auto) Eos # (Auto) Baso # (Auto) Neutrophils % (Manual) Band Neutrophils % Lymphocytes % (Manual) Monocytes % (Manual) Platelet Estimate PT 16.8 H INR 1.5 APTT 147 H* D Puncture Site pCO2 pO2 HCO3 ABG pH ABG Total CO2 ABG O2 Saturation ABG Base Excess Danny Test ABG Potassium A-a O2 Difference Respiratory Index Glucose Lactate Vent Mode Mechanical Rate FiO2 Tidal Volume PEEP Sodium Potassium Chloride Carbon Dioxide Anion Gap BUN Creatinine Est GFR ( Amer) Est GFR (Non-Af Amer) POC Glucose (mg/dL) 129 H 130 H Random Glucose Lactic Acid Calcium Phosphorus Magnesium Total Bilirubin AST ALT Alkaline Phosphatase Total Creatine Kinase CK-MB (Mass) Troponin I Total Protein Albumin Globulin Albumin/Globulin Ratio Arterial Blood Potassium Urine Color Urine Clarity Urine pH Ur Specific [place] Urine Protein Urine Glucose (UA) Urine Ketones Urine Blood Urine Nitrate Urine Bilirubin Urine Urobilinogen Ur Leukocyte Esterase Urine WBC (Auto) Urine RBC (Auto) Ur Squamous Epith Cells Amorphous Sediment Urine Bacteria Hyaline Casts 08/12/18 08/12/18 08/12/18 14:53 15:52 16:20 WBC RBC Hgb Hct MCV MCH MCHC RDW Plt Count MPV Neut % (Auto) Lymph % (Auto) [place] % (Auto) Eos % (Auto) Baso % (Auto) Neut # (Auto) Lymph # (Auto) [place] # (Auto) Eos # (Auto) Baso # (Auto) Neutrophils % (Manual) Band Neutrophils % Lymphocytes % (Manual) Monocytes % (Manual) Platelet Estimate PT INR APTT Puncture Site pCO2 pO2 HCO3 ABG pH ABG Total CO2 ABG O2 Saturation ABG Base Excess Danny Test ABG Potassium A-a O2 Difference Respiratory Index Glucose Lactate Vent Mode Mechanical Rate FiO2 Tidal Volume PEEP Sodium Potassium Chloride Carbon Dioxide Anion Gap BUN Creatinine Est GFR ( Amer) Est GFR (Non-Af Amer) POC Glucose (mg/dL) 132 H 131 H 128 H Random Glucose Lactic Acid Calcium Phosphorus Magnesium Total Bilirubin AST ALT Alkaline Phosphatase Total Creatine Kinase CK-MB (Mass) Troponin I Total Protein Albumin Globulin Albumin/Globulin Ratio Arterial Blood Potassium Urine Color Urine Clarity Urine pH Ur Specific [place] Urine Protein Urine Glucose (UA) Urine Ketones Urine Blood Urine Nitrate Urine Bilirubin Urine Urobilinogen Ur Leukocyte Esterase Urine WBC (Auto) Urine RBC (Auto) Ur Squamous Epith Cells Amorphous Sediment Urine Bacteria Hyaline Casts 08/12/18 08/12/18 08/12/18 16:21 16:21 17:08 WBC 16.5 H RBC 3.71 L Hgb 11.1 L Hct 34.0 L MCV 91.6 MCH 30.0 MCHC 32.7 L RDW 14.4 Plt Count 196 MPV 7.5 Neut % (Auto) 82.5 H Lymph % (Auto) 10.4 L [place] % (Auto) 7.0 Eos % (Auto) 0.0 Baso % (Auto) 0.1 Neut # (Auto) 13.7 H Lymph # (Auto) 1.7 [place] # (Auto) 1.2 H Eos # (Auto) 0.0 Baso # (Auto) 0.0 Neutrophils % (Manual) Band Neutrophils % Lymphocytes % (Manual) Monocytes % (Manual) Platelet Estimate PT INR APTT Puncture Site pCO2 pO2 HCO3 ABG pH ABG Total CO2 ABG O2 Saturation ABG Base Excess Danny Test ABG Potassium A-a O2 Difference Respiratory Index Glucose Lactate Vent Mode Mechanical Rate FiO2 Tidal Volume PEEP Sodium 140 Potassium 5.0 Chloride 113 H Carbon Dioxide 21 L Anion Gap 11 BUN 28 H Creatinine 1.5 Est GFR ( Amer) 54 Est GFR (Non-Af Amer) 45 POC Glucose (mg/dL) 126 H Random Glucose 121 H Lactic Acid Calcium 7.3 L Phosphorus 5.2 H Magnesium 1.7 Total Bilirubin 0.4 AST 99 H ALT 61 Alkaline Phosphatase 53 Total Creatine Kinase CK-MB (Mass) Troponin I Total Protein 6.0 L Albumin 3.2 L Globulin 2.8 Albumin/Globulin Ratio 1.1 Arterial Blood Potassium Urine Color Urine Clarity Urine pH Ur Specific [place] Urine Protein Urine Glucose (UA) Urine Ketones Urine Blood Urine Nitrate Urine Bilirubin Urine Urobilinogen Ur Leukocyte Esterase Urine WBC (Auto) Urine RBC (Auto) Ur Squamous Epith Cells Amorphous Sediment Urine Bacteria Hyaline Casts 08/12/18 08/12/18 18:10 19:00 WBC RBC Hgb Hct MCV MCH MCHC RDW Plt Count MPV Neut % (Auto) Lymph % (Auto) [place] % (Auto) Eos % (Auto) Baso % (Auto) Neut # (Auto) Lymph # (Auto) [place] # (Auto) Eos # (Auto) Baso # (Auto) Neutrophils % (Manual) Band Neutrophils % Lymphocytes % (Manual) Monocytes % (Manual) Platelet Estimate PT INR APTT Puncture Site pCO2 pO2 HCO3 ABG pH ABG Total CO2 ABG O2 Saturation ABG Base Excess Danny Test ABG Potassium A-a O2 Difference Respiratory Index Glucose Lactate Vent Mode Mechanical Rate FiO2 Tidal Volume PEEP Sodium Potassium Chloride Carbon Dioxide Anion Gap BUN Creatinine Est GFR ( Amer) Est GFR (Non-Af Amer) POC Glucose (mg/dL) 118 H 122 H Random Glucose Lactic Acid Calcium Phosphorus Magnesium Total Bilirubin AST ALT Alkaline Phosphatase Total Creatine Kinase CK-MB (Mass) Troponin I Total Protein Albumin Globulin Albumin/Globulin Ratio Arterial Blood Potassium Urine Color Urine Clarity Urine pH Ur Specific [place] Urine Protein Urine Glucose (UA) Urine Ketones Urine Blood Urine Nitrate Urine Bilirubin Urine Urobilinogen Ur Leukocyte Esterase Urine WBC (Auto) Urine RBC (Auto) Ur Squamous Epith Cells Amorphous Sediment Urine Bacteria Hyaline Casts
[2018-08-12] MEDS: Midazolam 50 mg/10 ml 100 MG in Sodium Chloride 0.9% 80 ML IV SCH (21:10)
[2018-08-12 21:43] LABS: HEMOGLOBIN 11.1 g/dL (12.0-18.0); MEAN CELL VOLUME 91.7 fL (80.0-94.0); MEAN CORPUSCULAR HGB CONC 32.7 g/dL (33.0-37.0); MEAN PLATELET VOLUME 7.4 fL (7.2-11.7); RBC 3.72 Mil/uL (4.40-5.90); RED CELL DISTRIBUTION WIDTH 14.3 % (11.5-14.5); WHITE BLOOD COUNT 16.6 K/uL (4.8-10.8)
[2018-08-12 21:54] LABS: ALB/GLOB RATIO 1.1 (1.0-2.1); ALBUMIN 3.3 g/dL (3.5-5.0); CALCIUM 7.2 mg/dl (8.6-10.4)
--- NOTE | 2018-08-12 22:15 | CARD ---
APPROVED REPORT Date of service: 08/12/2018 EXAM: Two-dimensional and M-mode echocardiogram with Doppler and color Doppler. Other Information Quality : [employer] : INDICATION ICD: 427.5 Cardiac Arrest 2D DIMENSIONS IVSd0.9 (0.7-1.1cm)LVDd5.9 (3.9-5.9cm) PWd0.8 (0.7-1.1cm)LA [id number] (18-58mL) LVDs5.5 (2.5-4.0cm)FS (%) 6.6 % LVEF (%)25.0 (>50%)LVEF (Gaston's)29.66 % IVC0.00 cm M-Mode DIMENSIONS Left Atrium (MM)4.87 (2.5-4.0cm)Aortic Root3.47 (2.2-3.7cm) Aortic Cusp Exc.1.48 (1.5-2.0cm) Aortic Valve AI P 1/2 [id number] Mitral Valve MV E Hahigsgm79.1cm/sMV A Xobgxdpq79.1cm/sE/A ratio3.6 FPUC602.83 cm/s TDI Lateral E' Peak V5.06cm/sMedial E' Peak V2.16cm/sE/Lateral E'15.0 E/Medial E'35.2 Tricuspid Valve TR Peak [id number] Peak [id number] LEFT VENTRICLE The Left Ventricle is borderline dilated. There is normal left ventricular wall thickness. Left ventricle ejection fraction is severely impaired. The Ejection Fraction is 25-30%. There is hypokinesis in the apical septal wall. Transmitral Doppler flow pattern is Grade I-abnormal relaxation pattern. A Fib There is no ventricular septal defect visualized. RIGHT VENTRICLE The right ventricle is normal size. The right ventricular systolic function is normal. ATRIA The left atrium is mildly dilated. The right atrium size is normal. AORTIC VALVE The aortic valve is moderately to severely sclerotic. The aortic valve is tri-cuspid. There is mild aortic regurgitation. There is no aortic valvular stenosis. MITRAL VALVE Mitral annular calcification is mild to moderate. There is no evidence of mitral valve prolapse. Mitral regurgitation is mild.ERO 0.1 cm2 TRICUSPID VALVE The tricuspid valve is normal in structure. There is trace tricuspid regurgitation. Right ventricular systolic pressure is estimated at less than 30 mmHg. There is no pulmonary hypertension. PULMONIC VALVE The pulmonic valve is not well visualized. There is trace pulmonic valvular regurgitation. GREAT VESSELS The aortic root is normal in size. The ascending aorta is normal in size. The IVC is normal in size and collapses >50% with inspiration. PERICARDIAL EFFUSION There is no pericardial effusion. <Conclusion> Left ventricle ejection fraction is severely impaired. The Ejection Fraction is 25-30%. There is hypokinesis in the apical septal wall. Ischemic cardiomyopathy. Transmitral Doppler flow pattern is Grade I-abnormal relaxation pattern. A Fib There is mild aortic regurgitation. Mitral regurgitation is mild.ERO 0.1 cm2
--- NOTE | 2018-08-12 23:22 | CARD ---
APPROVED REPORT Date of service: 08/11/2018 EKG Measurement Heart [id number] <Conclusion> Atrial fibrillation with a competing junctional pacemaker with premature ventricular or aberrantly conducted complexes Left axis deviation Nonspecific intraventricular block T wave abnormality, consider lateral ischemia Abnormal ECG
[2018-08-13] MEDS: Piperacillin/Tazobact 3.375 GM in Sodium Chloride 100 ML IVPB SCH ×3 (02:44→17:43)
[2018-08-13] MEDS: Sodium Chloride 0.9% 1,000 ML IV SCH (02:51)
--- NOTE | 2018-08-13 03:58 | CON ---
DATE: 08/12/2018 INFECTIOUS DISEASE CONSULT REQUESTED BY: Gemma Clay MD HISTORY OF PRESENT ILLNESS: This patient is an 83-year-old male. He has history of hypertension, diabetes, history of SC. He was brought in by the EMS, as he was walking he collapsed, and his was walking in front of him and gave the story to the ER that he was fine in the morning, he ate breakfast and lunch, went to the bank and then while she was walking in front of him, the turned around and found him collapsed on the sidewalk. EMS was called and he was found to be in cardiac arrest. CPR was initiated, he was intubated without sedation, unresponsive. He was given Narcan and saline en route with no change and he remains unresponsive and he has pinpoint pupils. I am asked to see him because of increasing white count and he remains intubated. He had a cardiac arrest and he had CPR, intubation and defibrillation done in the field. PAST MEDICAL HISTORY: Significant for coronary artery disease, CHF, atrial fibrillation, dementia, diabetes, hypertension, hypercholesterolemia, hyperthyroidism, chronic kidney disease. He has had C. difficile in the past. He has had endarterectomy. He has history of falls, history of musculoskeletal disorder. PAST SURGICAL HISTORY: Carotid endarterectomy on the right side. Surgical history shows coronary artery cath was done in 09/19/2013, a neck endarterectomy was done on 09/19/2013. Left heart cardiac cath was done at that time and he had a procedure on a single vessel on 09/19/2013. SOCIAL HISTORY: He does not smoke. He is a former smoker. He drinks alcohol, has no substance abuse. He has alcohol intake, was written by the ER. He had his immunization for pneumonia and flu in 10/2017. REVIEW OF SYSTEMS: Unable to obtain as there is no family member at the bedside at this time, he is intubated and being monitored in the ICU. I reviewed with the nurse. He is in the cardiac protocol because he is in a cooling blanket and his temperature, they are keeping it with hyperthermia. There was a triple lumen inserted in the left IJ. He also has history of dementia. Even the design engineering technician was not able to get any history. MEDICATIONS: We just added the antibiotics. Otherwise, he was on Tylenol, he is on 975 mg p.o. every 6 hours as he is shivering, he is on dextrose, he is on glucagon, it is there at the bedside, he is on heparin drip as he is in atrial fib, Novolin R was not given, Lopressor 50 mg p.o. was not given, methimazole, he is on Protonix, Zosyn we just started, propofol, and he is on sodium chloride. He did get one dose of vancomycin once and he is on Zosyn at this time. PHYSICAL EXAMINATION: VITAL SIGNS: Temperature is 92.5 right now this morning, pulse is 75, blood pressure is 110/88, and respirations are on the ventilator 12. HEENT: Head is atraumatic. He does have some bruising over the left eye. Pupils are pinpoint, both of them and he is on the ventilator. NECK: Supple. JVP is flat. LUNGS: There are no crackles or rales heard. No wheezing heard, but he has a lot of secretions which are coming over the ET tube and the nurse says she has been constantly suctioning it but still coming out. HEART: S1, S2, is tachycardic and irregularly irregular. ABDOMEN: Soft, nontender. No guarding, no rigidity present. EXTREMITIES: No edema, clubbing or cyanosis. LABORATORY DATA: Labs are noted. He was so, I am not sure if he is anoxic, Neurology is probably following. White count is 16.5, hemoglobin 11.1, hematocrit 34, platelet count is 196, neutrophils are 82.5. INR is 1.5. He had an ABG this morning which was 7.24, CO2 is 18.3, oxygen 177; CO2 was 40, it is not bad; and carbon dioxide is 21, BUN is 11, creatinine is 1.5, so we just gave one vancomycin and he has troponins but he is on defibrillator. Defibrillator use will need to be monitored closely. Urine was sent, UA has 3+ protein, 2+ blood, wbc's 8, bacteria rare, hyaline cast 6-10, does not show much except for blood and proteins because he is diabetic. Urine culture came out negative. Blood cultures x2 are pending. He got a new triple lumen TLC. Chest x-ray was done this morning which shows worsening pulmonary edema, otherwise finding as above. ET tube is 3 cm cephalad to carolann. NG tube appears to be at least coursing in the stomach distal aspect, less clearly seen than the prior study. Head CT was done which showed small hypodense density involving the right frontal vertex appears consistent with chronic or remote infarction, moderate nonspecific white matter changes, fluid within the right mastoid cells, clinically correlate for mastoiditis, generalized atrophy, additional incidental findings as above. ASSESSMENT/PLAN: So at this time, this patient is status post cardiac arrest with cardiac arrhythmias, has atrial fibrillation, baseline diabetic with Alzheimer's, coronary artery disease, is having a lot of secretions. His x-ray says he has pulmonary edema and labs showing white count is increasing. He may have aspirated as he passed out and he has pinpoint pupils and he is having cerebrate rigidity, so I am not sure if he is anoxic, but we will certainly cover for aspiration. He also has renal insufficiency most likely due to the fall, we are going to look for rhabdomyolysis and will send a sputum culture, get a vancomycin random level tomorrow, and we will follow. To continue Zosyn at this time, and we will follow with the other consultants. Shilpa Sandoval MD
[2018-08-13] MEDS: Propofol 10 mg/ml 1,000 MG/100 ML VIAL IV PRN ×4 (04:09→18:40)
[2018-08-13 04:25] LABS: ARTERIAL BLOOD GAS HCO3 16.9 mmol/L (21-28); ARTERIAL BLOOD GAS O2 SAT 91.2 % (95-98); ARTERIAL BLOOD GAS PCO2 48 mm/Hg (35-45); ARTERIAL BLOOD GAS PH 7.19 (7.35-7.45); ARTERIAL BLOOD GAS PO2 63 mm/Hg (80-100); ARTERIAL BLOOD GAS TCO2 19.8 mmol/L (22-28)
[2018-08-13 06:17] LABS: BASO % 0.1 % (0.0-2.0); HEMOGLOBIN 11.2 g/dL (12.0-18.0); LYMPH # 1.2 K/uL (1.0-4.3); LYMPH % 7.4 % (20.0-40.0); MEAN CELL VOLUME 91.5 fL (80.0-94.0); MEAN CORPUSCULAR HEMOGLOBIN 30.2 pg (27.0-31.0); MEAN PLATELET VOLUME 8.5 fL (7.2-11.7); NEUT # 14.5 K/uL (1.8-7.0); NEUT % 86.5 % (50.0-75.0); PLATELET COUNT 194 K/uL (130-400); RBC 3.71 Mil/uL (4.40-5.90); RED CELL DISTRIBUTION WIDTH 14.4 % (11.5-14.5); WHITE BLOOD COUNT 16.7 K/uL (4.8-10.8)
[2018-08-13 06:48] LABS: ALB/GLOB RATIO 1.1 (1.0-2.1); ALBUMIN 3.3 g/dL (3.5-5.0)
[2018-08-13] MEDS: (Novolin R) Insulin Human Regular 100 units/ml vial SC SCH ×3 (07:30→16:30)
--- NOTE | 2018-08-13 08:16 | CP.CCUPN ---
<Bhargav Amezquita - Last Filed: 08/13/18 10:05> CCU Subjective - Physician Review Subjective (Free Text): PGY-1 Critical Care Progress Note for Dr. Ocampo's service Patient seen and examined at bedside. Patient is sedated and non communicative currently. Limited ROS. CCU Objective - Vital Signs / Intake & Output Vital Signs (Last 4 hours): Vital Signs Temp Pulse Resp BP 08/13/18 07:30 95.8 F L 102 H 16 94/67 L 08/13/18 07:00 95.8 F L 100 H 14 117/70 08/13/18 06:30 95.9 F L 99 H 14 105/69 08/13/18 06:00 95.9 F L 102 H 14 122/83 08/13/18 05:32 95.9 F L 102 H 19 131/81 08/13/18 05:00 95.9 F L 109 H 19 122/69 08/13/18 04:34 95.8 F L 109 H 19 118/79 08/13/18 04:00 95.7 F L 104 H 18 108/76 Intake and Output (Last 8hrs): Intake & Output 08/12/18 08/13/18 08/13/18 22:59 06:59 14:59 Intake Total 1540.0 1441.9 124.5 Output Total 1095 1130 100 Balance 445.0 311.9 24.5 Weight 149 lb 9.6 oz Intake: IV 190 100 Intake, IV Amount 1350.0 1341.9 124.5 Left Hand 48.8 28.7 4.1 rt ij tlc distal port 134.5 163.2 20.4 rt ij tlc middle port 1166.7 1150 100 Output: Urine 1095 1130 100 Urethral ([place]) 1095 1130 100 - Physical Exam Head: Positive for: Other (brusing with ecchymosis of left eye) Mouth: Positive for: Moist Mucous Membranes, Other (ET tube in place) Respiratory/Chest: Positive for: Good Air Exchange Cardiovascular: Positive for: Normal S1, S2, Irregular Rhythm, Tachycardic. Negative for: Regular Rate and Rhythm Abdomen: Negative for: Tenderness, Distention Upper Extremity: Positive for: Normal Inspection. 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 Negative for: Edema Neurological: Negative for: GCS=15 Skin: Positive for: Dry, Normal Color. Negative for: Warm Psychiatric: Negative for: Alert, Oriented x 3 - Medications Active Medications: Active Medications Generic Name Dose Route Start Last Admin Trade Name Freq PRN Reason Stop Dose Admin Acetaminophen 975 mg 08/12/18 11:22 Tylenol 650mg/20.3ml Solution Ud PO Q6H PRN shivering Dextrose 0 ml 08/11/18 15:29 Dextrose 50% Inj IV STAT PRN Hypoglycemia Protocol Protocol Dextrose 0 gm 08/11/18 15:29 Glutose 15 PO ONCE PRN Hypoglycemia Protocol Protocol Glucagon 0 mg 08/11/18 15:29 Glucagen Diagnostic Kit IM STAT PRN Hypoglycemia Protocol Protocol Dextrose 1,000 mls @ 0 mls/hr 08/11/18 15:29 Dextrose 5% In Water 1000 Ml IV .Q0M PRN Hypoglycemia Protocol Protocol Per Protocol Heparin Sodium/Sodium Chloride 25,000 units in 250 mls @ 8.165 mls/hr 08/11/18 17:33 08/12/18 23:30 Heparin 85243 Units/250ml 1/2 Normal Saline IV 6 units/kg/hr .Q24H PRN 4.082 mls/hr ADJUST RATE PER PROTOCOL Titration Protocol 12 UNITS/KG/HR Propofol 1,000 mg in 100 mls @ 2.041 mls/hr 08/11/18 19:35 08/13/18 04:09 Diprivan IV 50 mcg/kg/min .Q24H PRN 20.412 mls/hr TITRATE PER MD ORDER Administration Protocol 5 MCG/KG/MIN Midazolam HCl 100 mg/ Sodium 100 mls @ 1.36 mls/hr 08/11/18 20:30 08/12/18 21:10 Chloride IV Not Given .Q24H JESSE Protocol 0.02 MG/KG/HR Piperacillin Sod/Tazobactam 100 mls @ 200 mls/hr 08/12/18 18:00 08/13/18 02:44 Sod 3.375 gm/ Sodium Chloride IVPB 200 mls/hr Q8H JESSE Administration Protocol Sodium Bicarbonate 150 meq/ 1,150 mls @ 50 mls/hr 08/13/18 06:04 Dextrose IV .Q23H JESSE Insulin Human Regular 0 unit 08/11/18 16:30 08/12/18 21:09 Novolin R SC Not Given ACHS [facility] Protocol Metoprolol Tartrate 50 mg 08/11/18 18:00 08/12/18 18:21 Lopressor PO Not Given BID [facility] Pantoprazole Sodium 40 mg 08/11/18 15:30 08/12/18 10:42 Protonix Inj IVP 40 mg DAILY JESSE Administration - Patient Studies Lab Studies: Microbiology Studies 08/12/18 18:48 Gram Stain - Final Trachasp 08/11/18 19:26 Urine Culture - Final Urine,Catheterized No Growth (<1,000 CFU/ML) Lab Studies 08/13/18 08/13/18 08/13/18 Range/Units 06:53 06:13 06:06 WBC (4.8-10.8) K/uL RBC (4.40-5.90) Mil/uL Hgb (12.0-18.0) g/dL Hct (35.0-51.0) % MCV (80.0-94.0) fL MCH (27.0-31.0) pg MCHC (33.0-37.0) g/dL RDW (11.5-14.5) % Plt Count (130-400) K/uL MPV (7.2-11.7) fL Neut % (Auto) (50.0-75.0) % Lymph % (Auto) (20.0-40.0) % [place] % (Auto) (0.0-10.0) % Eos % (Auto) (0.0-4.0) % Baso % (Auto) (0.0-2.0) % Neut # (Auto) (1.8-7.0) K/uL Lymph # (Auto) (1.0-4.3) K/uL [place] # (Auto) (0.0-0.8) K/uL Eos # (Auto) (0.0-0.7) K/uL Baso # (Auto) (0.0-0.2) K/uL PT (9.7-12.2) SECONDS INR APTT 75 H D Puncture Site pCO2 (35-45) mm/Hg pO2 (80-100) mm/Hg HCO3 (21-28) mmol/L ABG pH (7.35-7.45) ABG Total CO2 (22-28) mmol/L ABG O2 Saturation (95-98) % ABG Base Excess (-2.0-3.0) mmol/L Danny Test ABG Potassium (3.6-5.2) mmol/L A-a O2 Difference mm/Hg Respiratory Index Sodium (132-148) mmol/l Chloride (98-107) mmol/L Glucose (75-110) mg/dl Lactate (0.7-2.1) mmol/L Vent Mode Mechanical Rate FiO2 % Tidal Volume PEEP Crit Value Called To Crit Value Called By Crit Value Read Back Blood Gas Notified Time Potassium (3.6-5.2) mmol/L Carbon Dioxide (22-30) mmol/L Anion Gap (10-20) BUN (9-20) mg/dL Creatinine (0.8-1.5) mg/dL Est GFR ( Amer) Est GFR (Non-Af Amer) POC Glucose (mg/dL) 101 130 H (65-110) mg/dL Random Glucose (75-110) mg/dL Calcium (8.6-10.4) mg/dl Phosphorus (2.5-4.5) mg/dL Magnesium (1.6-2.3) mg/dL Total Bilirubin (0.2-1.3) mg/dL AST (17-59) U/L ALT (21-72) U/L Alkaline Phosphatase (38-126) U/L CK-MB (Mass) (0.0-3.38) ng/mL Troponin I (0.00-0.120) ng/mL Total Protein (6.3-8.3) g/dL Albumin (3.5-5.0) g/dL Globulin (2.2-3.9) gm/dL Albumin/Globulin Ratio (1.0-2.1) Arterial Blood Potassium (3.6-5.2) mmol/L Random Vancomycin ug/mL 08/13/18 08/13/18 08/13/18 Range/Units 06:06 06:06 06:06 WBC 16.7 H (4.8-10.8) K/uL RBC 3.71 L (4.40-5.90) Mil/uL Hgb 11.2 L (12.0-18.0) g/dL Hct 33.9 L (35.0-51.0) % MCV 91.5 (80.0-94.0) fL MCH 30.2 (27.0-31.0) pg MCHC 33.0 (33.0-37.0) g/dL RDW 14.4 (11.5-14.5) % Plt Count 194 (130-400) K/uL MPV 8.5 (7.2-11.7) fL Neut % (Auto) 86.5 H (50.0-75.0) % Lymph % (Auto) 7.4 L (20.0-40.0) % [place] % (Auto) 6.0 (0.0-10.0) % Eos % (Auto) 0.0 (0.0-4.0) % Baso % (Auto) 0.1 (0.0-2.0) % Neut # (Auto) 14.5 H (1.8-7.0) K/uL Lymph # (Auto) 1.2 (1.0-4.3) K/uL [place] # (Auto) 1.0 H (0.0-0.8) K/uL Eos # (Auto) 0.0 (0.0-0.7) K/uL Baso # (Auto) 0.0 (0.0-0.2) K/uL PT (9.7-12.2) SECONDS INR APTT Puncture Site pCO2 (35-45) mm/Hg pO2 (80-100) mm/Hg HCO3 (21-28) mmol/L ABG pH (7.35-7.45) ABG Total CO2 (22-28) mmol/L ABG O2 Saturation (95-98) % ABG Base Excess (-2.0-3.0) mmol/L Danny Test ABG Potassium (3.6-5.2) mmol/L A-a O2 Difference mm/Hg Respiratory Index Sodium 141 (132-148) mmol/l Chloride 112 H (98-107) mmol/L Glucose (75-110) mg/dl Lactate (0.7-2.1) mmol/L Vent Mode Mechanical Rate FiO2 % Tidal Volume PEEP Crit Value Called To Crit Value Called By Crit Value Read Back Blood Gas Notified Time Potassium 4.8 (3.6-5.2) mmol/L Carbon Dioxide 20 L (22-30) mmol/L Anion Gap 14 (10-20) BUN 28 H (9-20) mg/dL Creatinine 1.5 (0.8-1.5) mg/dL Est GFR ( Amer) 54 Est GFR (Non-Af Amer) 45 POC Glucose (mg/dL) (65-110) mg/dL Random Glucose 131 H (75-110) mg/dL Calcium 7.0 L (8.6-10.4) mg/dl Phosphorus 5.2 H (2.5-4.5) mg/dL Magnesium 1.7 (1.6-2.3) mg/dL Total Bilirubin 0.4 (0.2-1.3) mg/dL AST 86 H (17-59) U/L ALT 59 (21-72) U/L Alkaline Phosphatase 57 (38-126) U/L CK-MB (Mass) (0.0-3.38) ng/mL Troponin I (0.00-0.120) ng/mL Total Protein 6.3 (6.3-8.3) g/dL Albumin 3.3 L (3.5-5.0) g/dL Globulin 3.0 (2.2-3.9) gm/dL Albumin/Globulin Ratio 1.1 (1.0-2.1) Arterial Blood Potassium (3.6-5.2) mmol/L Random Vancomycin 10.1 ug/mL 08/13/18 08/13/18 08/13/18 Range/Units 04:57 04:20 04:05 WBC (4.8-10.8) K/uL RBC (4.40-5.90) Mil/uL Hgb (12.0-18.0) g/dL Hct (35.0-51.0) % MCV (80.0-94.0) fL MCH (27.0-31.0) pg MCHC (33.0-37.0) g/dL RDW (11.5-14.5) % Plt Count (130-400) K/uL MPV (7.2-11.7) fL Neut % (Auto) (50.0-75.0) % Lymph % (Auto) (20.0-40.0) % [place] % (Auto) (0.0-10.0) % Eos % (Auto) (0.0-4.0) % Baso % (Auto) (0.0-2.0) % Neut # (Auto) (1.8-7.0) K/uL Lymph # (Auto) (1.0-4.3) K/uL [place] # (Auto) (0.0-0.8) K/uL Eos # (Auto) (0.0-0.7) K/uL Baso # (Auto) (0.0-0.2) K/uL PT (9.7-12.2) SECONDS INR APTT Puncture Site Rb pCO2 48 H (35-45) mm/Hg pO2 63 L (80-100) mm/Hg HCO3 16.9 L (21-28) mmol/L ABG pH 7.19 L* (7.35-7.45) ABG Total CO2 19.8 L (22-28) mmol/L ABG O2 Saturation 91.2 L (95-98) % ABG Base Excess -9.9 L (-2.0-3.0) mmol/L Danny Test Na ABG Potassium 5.4 H (3.6-5.2) mmol/L A-a O2 Difference 234.0 mm/Hg Respiratory Index 3.7 Sodium 141.0 (132-148) mmol/l Chloride 115.0 H (98-107) mmol/L Glucose 129 H (75-110) mg/dl Lactate 1.6 (0.7-2.1) mmol/L Vent Mode Prvc Mechanical Rate 12 FiO2 50.0 % Tidal Volume 500 PEEP 5 Crit Value Called To Arcenio allen/rn Crit Value Called By Jacob petersen/rt Crit Value Read Back Y Blood Gas Notified Time 430 Potassium (3.6-5.2) mmol/L Carbon Dioxide (22-30) mmol/L Anion Gap (10-20) BUN (9-20) mg/dL Creatinine (0.8-1.5) mg/dL Est GFR ( Amer) Est GFR (Non-Af Amer) POC Glucose (mg/dL) 140 H 133 H (65-110) mg/dL Random Glucose (75-110) mg/dL Calcium (8.6-10.4) mg/dl Phosphorus (2.5-4.5) mg/dL Magnesium (1.6-2.3) mg/dL Total Bilirubin (0.2-1.3) mg/dL AST (17-59) U/L ALT (21-72) U/L Alkaline Phosphatase (38-126) U/L CK-MB (Mass) (0.0-3.38) ng/mL Troponin I (0.00-0.120) ng/mL Total Protein (6.3-8.3) g/dL Albumin (3.5-5.0) g/dL Globulin (2.2-3.9) gm/dL Albumin/Globulin Ratio (1.0-2.1) Arterial Blood Potassium 5.4 H (3.6-5.2) mmol/L Random Vancomycin ug/mL 08/13/18 08/13/18 08/13/18 Range/Units 02:59 02:08 00:58 WBC (4.8-10.8) K/uL RBC (4.40-5.90) Mil/uL Hgb (12.0-18.0) g/dL Hct (35.0-51.0) % MCV (80.0-94.0) fL MCH (27.0-31.0) pg MCHC (33.0-37.0) g/dL RDW (11.5-14.5) % Plt Count (130-400) K/uL MPV (7.2-11.7) fL Neut % (Auto) (50.0-75.0) % Lymph % (Auto) (20.0-40.0) % [place] % (Auto) (0.0-10.0) % Eos % (Auto) (0.0-4.0) % Baso % (Auto) (0.0-2.0) % Neut # (Auto) (1.8-7.0) K/uL Lymph # (Auto) (1.0-4.3) K/uL [place] # (Auto) (0.0-0.8) K/uL Eos # (Auto) (0.0-0.7) K/uL Baso # (Auto) (0.0-0.2) K/uL PT (9.7-12.2) SECONDS INR APTT Puncture Site pCO2 (35-45) mm/Hg pO2 (80-100) mm/Hg HCO3 (21-28) mmol/L ABG pH (7.35-7.45) ABG Total CO2 (22-28) mmol/L ABG O2 Saturation (95-98) % ABG Base Excess (-2.0-3.0) mmol/L Danny Test ABG Potassium (3.6-5.2) mmol/L A-a O2 Difference mm/Hg Respiratory Index Sodium (132-148) mmol/l Chloride (98-107) mmol/L Glucose (75-110) mg/dl Lactate (0.7-2.1) mmol/L Vent Mode Mechanical Rate FiO2 % Tidal Volume PEEP Crit Value Called To Crit Value Called By Crit Value Read Back Blood Gas Notified Time Potassium (3.6-5.2) mmol/L Carbon Dioxide (22-30) mmol/L Anion Gap (10-20) BUN (9-20) mg/dL Creatinine (0.8-1.5) mg/dL Est GFR ( Amer) Est GFR (Non-Af Amer) POC Glucose (mg/dL) 132 H 147 H 132 H (65-110) mg/dL Random Glucose (75-110) mg/dL Calcium (8.6-10.4) mg/dl Phosphorus (2.5-4.5) mg/dL Magnesium (1.6-2.3) mg/dL Total Bilirubin (0.2-1.3) mg/dL AST (17-59) U/L ALT (21-72) U/L Alkaline Phosphatase (38-126) U/L CK-MB (Mass) (0.0-3.38) ng/mL Troponin I (0.00-0.120) ng/mL Total Protein (6.3-8.3) g/dL Albumin (3.5-5.0) g/dL Globulin (2.2-3.9) gm/dL Albumin/Globulin Ratio (1.0-2.1) Arterial Blood Potassium (3.6-5.2) mmol/L Random Vancomycin ug/mL 08/12/18 08/12/18 08/12/18 Range/Units 23:29 23:09 22:07 WBC (4.8-10.8) K/uL RBC (4.40-5.90) Mil/uL Hgb (12.0-18.0) g/dL Hct (35.0-51.0) % MCV (80.0-94.0) fL MCH (27.0-31.0) pg MCHC (33.0-37.0) g/dL RDW (11.5-14.5) % Plt Count (130-400) K/uL MPV (7.2-11.7) fL Neut % (Auto) (50.0-75.0) % Lymph % (Auto) (20.0-40.0) % [place] % (Auto) (0.0-10.0) % Eos % (Auto) (0.0-4.0) % Baso % (Auto) (0.0-2.0) % Neut # (Auto) (1.8-7.0) K/uL Lymph # (Auto) (1.0-4.3) K/uL [place] # (Auto) (0.0-0.8) K/uL Eos # (Auto) (0.0-0.7) K/uL Baso # (Auto) (0.0-0.2) K/uL PT (9.7-12.2) SECONDS INR APTT Puncture Site pCO2 (35-45) mm/Hg pO2 (80-100) mm/Hg HCO3 (21-28) mmol/L ABG pH (7.35-7.45) ABG Total CO2 (22-28) mmol/L ABG O2 Saturation (95-98) % ABG Base Excess (-2.0-3.0) mmol/L Danny Test ABG Potassium (3.6-5.2) mmol/L A-a O2 Difference mm/Hg Respiratory Index Sodium (132-148) mmol/l Chloride (98-107) mmol/L Glucose (75-110) mg/dl Lactate (0.7-2.1) mmol/L Vent Mode Mechanical Rate FiO2 % Tidal Volume PEEP Crit Value Called To Crit Value Called By Crit Value Read Back Blood Gas Notified Time Potassium (3.6-5.2) mmol/L Carbon Dioxide (22-30) mmol/L Anion Gap (10-20) BUN (9-20) mg/dL Creatinine (0.8-1.5) mg/dL Est GFR ( Amer) Est GFR (Non-Af Amer) POC Glucose (mg/dL) 133 H 109 118 H (65-110) mg/dL Random Glucose (75-110) mg/dL Calcium (8.6-10.4) mg/dl Phosphorus (2.5-4.5) mg/dL Magnesium (1.6-2.3) mg/dL Total Bilirubin (0.2-1.3) mg/dL AST (17-59) U/L ALT (21-72) U/L Alkaline Phosphatase (38-126) U/L CK-MB (Mass) (0.0-3.38) ng/mL Troponin I (0.00-0.120) ng/mL Total Protein (6.3-8.3) g/dL Albumin (3.5-5.0) g/dL Globulin (2.2-3.9) gm/dL Albumin/Globulin Ratio (1.0-2.1) Arterial Blood Potassium (3.6-5.2) mmol/L Random Vancomycin ug/mL 08/12/18 08/12/18 08/12/18 Range/Units 21:38 21:38 21:38 WBC 16.6 H (4.8-10.8) K/uL RBC 3.72 L (4.40-5.90) Mil/uL Hgb 11.1 L (12.0-18.0) g/dL Hct 34.1 L (35.0-51.0) % MCV 91.7 (80.0-94.0) fL MCH 30.0 (27.0-31.0) pg MCHC 32.7 L (33.0-37.0) g/dL RDW 14.3 (11.5-14.5) % Plt Count 193 (130-400) K/uL MPV 7.4 (7.2-11.7) fL Neut % (Auto) (50.0-75.0) % Lymph % (Auto) (20.0-40.0) % [place] % (Auto) (0.0-10.0) % Eos % (Auto) (0.0-4.0) % Baso % (Auto) (0.0-2.0) % Neut # (Auto) (1.8-7.0) K/uL Lymph # (Auto) (1.0-4.3) K/uL [place] # (Auto) (0.0-0.8) K/uL Eos # (Auto) (0.0-0.7) K/uL Baso # (Auto) (0.0-0.2) K/uL PT (9.7-12.2) SECONDS INR APTT 110 H* D Puncture Site pCO2 (35-45) mm/Hg pO2 (80-100) mm/Hg HCO3 (21-28) mmol/L ABG pH (7.35-7.45) ABG Total CO2 (22-28) mmol/L ABG O2 Saturation (95-98) % ABG Base Excess (-2.0-3.0) mmol/L Danny Test ABG Potassium (3.6-5.2) mmol/L A-a O2 Difference mm/Hg Respiratory Index Sodium 140 (132-148) mmol/l Chloride 113 H (98-107) mmol/L Glucose (75-110) mg/dl Lactate (0.7-2.1) mmol/L Vent Mode Mechanical Rate FiO2 % Tidal Volume PEEP Crit Value Called To Crit Value Called By Crit Value Read Back Blood Gas Notified Time Potassium 5.0 (3.6-5.2) mmol/L Carbon Dioxide 21 L (22-30) mmol/L Anion Gap 11 (10-20) BUN 28 H (9-20) mg/dL Creatinine 1.5 (0.8-1.5) mg/dL Est GFR ( Amer) 54 Est GFR (Non-Af Amer) 45 POC Glucose (mg/dL) (65-110) mg/dL Random Glucose 114 H (75-110) mg/dL Calcium 7.2 L (8.6-10.4) mg/dl Phosphorus 4.9 H (2.5-4.5) mg/dL Magnesium 1.7 (1.6-2.3) mg/dL Total Bilirubin 0.4 (0.2-1.3) mg/dL AST 95 H (17-59) U/L ALT 58 (21-72) U/L Alkaline Phosphatase 56 (38-126) U/L CK-MB (Mass) (0.0-3.38) ng/mL Troponin I (0.00-0.120) ng/mL Total Protein 6.2 L (6.3-8.3) g/dL Albumin 3.3 L (3.5-5.0) g/dL Globulin 2.9 (2.2-3.9) gm/dL Albumin/Globulin Ratio 1.1 (1.0-2.1) Arterial Blood Potassium (3.6-5.2) mmol/L Random Vancomycin ug/mL 08/12/18 08/12/18 08/12/18 Range/Units 21:02 20:06 19:00 WBC (4.8-10.8) K/uL RBC (4.40-5.90) Mil/uL Hgb (12.0-18.0) g/dL Hct (35.0-51.0) % MCV (80.0-94.0) fL MCH (27.0-31.0) pg MCHC (33.0-37.0) g/dL RDW (11.5-14.5) % Plt Count (130-400) K/uL MPV (7.2-11.7) fL Neut % (Auto) (50.0-75.0) % Lymph % (Auto) (20.0-40.0) % [place] % (Auto) (0.0-10.0) % Eos % (Auto) (0.0-4.0) % Baso % (Auto) (0.0-2.0) % Neut # (Auto) (1.8-7.0) K/uL Lymph # (Auto) (1.0-4.3) K/uL [place] # (Auto) (0.0-0.8) K/uL Eos # (Auto) (0.0-0.7) K/uL Baso # (Auto) (0.0-0.2) K/uL PT (9.7-12.2) SECONDS INR APTT Puncture Site pCO2 (35-45) mm/Hg pO2 (80-100) mm/Hg HCO3 (21-28) mmol/L ABG pH (7.35-7.45) ABG Total CO2 (22-28) mmol/L ABG O2 Saturation (95-98) % ABG Base Excess (-2.0-3.0) mmol/L Danny Test ABG Potassium (3.6-5.2) mmol/L A-a O2 Difference mm/Hg Respiratory Index Sodium (132-148) mmol/l Chloride (98-107) mmol/L Glucose (75-110) mg/dl Lactate (0.7-2.1) mmol/L Vent Mode Mechanical Rate FiO2 % Tidal Volume PEEP Crit Value Called To Crit Value Called By Crit Value Read Back Blood Gas Notified Time Potassium (3.6-5.2) mmol/L Carbon Dioxide (22-30) mmol/L Anion Gap (10-20) BUN (9-20) mg/dL Creatinine (0.8-1.5) mg/dL Est GFR ( Amer) Est GFR (Non-Af Amer) POC Glucose (mg/dL) 136 H 119 H 122 H (65-110) mg/dL Random Glucose (75-110) mg/dL Calcium (8.6-10.4) mg/dl Phosphorus (2.5-4.5) mg/dL Magnesium (1.6-2.3) mg/dL Total Bilirubin (0.2-1.3) mg/dL AST (17-59) U/L ALT (21-72) U/L Alkaline Phosphatase (38-126) U/L CK-MB (Mass) (0.0-3.38) ng/mL Troponin I (0.00-0.120) ng/mL Total Protein (6.3-8.3) g/dL Albumin (3.5-5.0) g/dL Globulin (2.2-3.9) gm/dL Albumin/Globulin Ratio (1.0-2.1) Arterial Blood Potassium (3.6-5.2) mmol/L Random Vancomycin ug/mL 08/12/18 08/12/18 08/12/18 Range/Units 18:10 17:08 16:21 WBC (4.8-10.8) K/uL RBC (4.40-5.90) Mil/uL Hgb (12.0-18.0) g/dL Hct (35.0-51.0) % MCV (80.0-94.0) fL MCH (27.0-31.0) pg MCHC (33.0-37.0) g/dL RDW (11.5-14.5) % Plt Count (130-400) K/uL MPV (7.2-11.7) fL Neut % (Auto) (50.0-75.0) % Lymph % (Auto) (20.0-40.0) % [place] % (Auto) (0.0-10.0) % Eos % (Auto) (0.0-4.0) % Baso % (Auto) (0.0-2.0) % Neut # (Auto) (1.8-7.0) K/uL Lymph # (Auto) (1.0-4.3) K/uL [place] # (Auto) (0.0-0.8) K/uL Eos # (Auto) (0.0-0.7) K/uL Baso # (Auto) (0.0-0.2) K/uL PT (9.7-12.2) SECONDS INR APTT Puncture Site pCO2 (35-45) mm/Hg pO2 (80-100) mm/Hg HCO3 (21-28) mmol/L ABG pH (7.35-7.45) ABG Total CO2 (22-28) mmol/L ABG O2 Saturation (95-98) % ABG Base Excess (-2.0-3.0) mmol/L Danny Test ABG Potassium (3.6-5.2) mmol/L A-a O2 Difference mm/Hg Respiratory Index Sodium 140 (132-148) mmol/l Chloride 113 H (98-107) mmol/L Glucose (75-110) mg/dl Lactate (0.7-2.1) mmol/L Vent Mode Mechanical Rate FiO2 % Tidal Volume PEEP Crit Value Called To Crit Value Called By Crit Value Read Back Blood Gas Notified Time Potassium 5.0 (3.6-5.2) mmol/L Carbon Dioxide 21 L (22-30) mmol/L Anion Gap 11 (10-20) BUN 28 H (9-20) mg/dL Creatinine 1.5 (0.8-1.5) mg/dL Est GFR ( Amer) 54 Est GFR (Non-Af Amer) 45 POC Glucose (mg/dL) 118 H 126 H (65-110) mg/dL Random Glucose 121 H (75-110) mg/dL Calcium 7.3 L (8.6-10.4) mg/dl Phosphorus 5.2 H (2.5-4.5) mg/dL Magnesium 1.7 (1.6-2.3) mg/dL Total Bilirubin 0.4 (0.2-1.3) mg/dL AST 99 H (17-59) U/L ALT 61 (21-72) U/L Alkaline Phosphatase 53 (38-126) U/L CK-MB (Mass) (0.0-3.38) ng/mL Troponin I (0.00-0.120) ng/mL Total Protein 6.0 L (6.3-8.3) g/dL Albumin 3.2 L (3.5-5.0) g/dL Globulin 2.8 (2.2-3.9) gm/dL Albumin/Globulin Ratio 1.1 (1.0-2.1) Arterial Blood Potassium (3.6-5.2) mmol/L Random Vancomycin ug/mL 08/12/18 08/12/18 08/12/18 Range/Units 16:21 16:20 15:52 WBC 16.5 H (4.8-10.8) K/uL RBC 3.71 L (4.40-5.90) Mil/uL Hgb 11.1 L (12.0-18.0) g/dL Hct 34.0 L (35.0-51.0) % MCV 91.6 (80.0-94.0) fL MCH 30.0 (27.0-31.0) pg MCHC 32.7 L (33.0-37.0) g/dL RDW 14.4 (11.5-14.5) % Plt Count 196 (130-400) K/uL MPV 7.5 (7.2-11.7) fL Neut % (Auto) 82.5 H (50.0-75.0) % Lymph % (Auto) 10.4 L (20.0-40.0) % [place] % (Auto) 7.0 (0.0-10.0) % Eos % (Auto) 0.0 (0.0-4.0) % Baso % (Auto) 0.1 (0.0-2.0) % Neut # (Auto) 13.7 H (1.8-7.0) K/uL Lymph # (Auto) 1.7 (1.0-4.3) K/uL [place] # (Auto) 1.2 H (0.0-0.8) K/uL Eos # (Auto) 0.0 (0.0-0.7) K/uL Baso # (Auto) 0.0 (0.0-0.2) K/uL PT (9.7-12.2) SECONDS INR APTT Puncture Site pCO2 (35-45) mm/Hg pO2 (80-100) mm/Hg HCO3 (21-28) mmol/L ABG pH (7.35-7.45) ABG Total CO2 (22-28) mmol/L ABG O2 Saturation (95-98) % ABG Base Excess (-2.0-3.0) mmol/L Danny Test ABG Potassium (3.6-5.2) mmol/L A-a O2 Difference mm/Hg Respiratory Index Sodium (132-148) mmol/l Chloride (98-107) mmol/L Glucose (75-110) mg/dl Lactate (0.7-2.1) mmol/L Vent Mode Mechanical Rate FiO2 % Tidal Volume PEEP Crit Value Called To Crit Value Called By Crit Value Read Back Blood Gas Notified Time Potassium (3.6-5.2) mmol/L Carbon Dioxide (22-30) mmol/L Anion Gap (10-20) BUN (9-20) mg/dL Creatinine (0.8-1.5) mg/dL Est GFR ( Amer) Est GFR (Non-Af Amer) POC Glucose (mg/dL) 128 H 131 H (65-110) mg/dL Random Glucose (75-110) mg/dL Calcium (8.6-10.4) mg/dl Phosphorus (2.5-4.5) mg/dL Magnesium (1.6-2.3) mg/dL Total Bilirubin (0.2-1.3) mg/dL AST (17-59) U/L ALT (21-72) U/L Alkaline Phosphatase (38-126) U/L CK-MB (Mass) (0.0-3.38) ng/mL Troponin I (0.00-0.120) ng/mL Total Protein (6.3-8.3) g/dL Albumin (3.5-5.0) g/dL Globulin (2.2-3.9) gm/dL Albumin/Globulin Ratio (1.0-2.1) Arterial Blood Potassium (3.6-5.2) mmol/L Random Vancomycin ug/mL 08/12/18 08/12/18 08/12/18 Range/Units 14:53 13:37 13:35 WBC (4.8-10.8) K/uL RBC (4.40-5.90) Mil/uL Hgb (12.0-18.0) g/dL Hct (35.0-51.0) % MCV (80.0-94.0) fL MCH (27.0-31.0) pg MCHC (33.0-37.0) g/dL RDW (11.5-14.5) % Plt Count (130-400) K/uL MPV (7.2-11.7) fL Neut % (Auto) (50.0-75.0) % Lymph % (Auto) (20.0-40.0) % [place] % (Auto) (0.0-10.0) % Eos % (Auto) (0.0-4.0) % Baso % (Auto) (0.0-2.0) % Neut # (Auto) (1.8-7.0) K/uL Lymph # (Auto) (1.0-4.3) K/uL [place] # (Auto) (0.0-0.8) K/uL Eos # (Auto) (0.0-0.7) K/uL Baso # (Auto) (0.0-0.2) K/uL PT 16.8 H (9.7-12.2) SECONDS INR 1.5 APTT 147 H* D Puncture Site pCO2 (35-45) mm/Hg pO2 (80-100) mm/Hg HCO3 (21-28) mmol/L ABG pH (7.35-7.45) ABG Total CO2 (22-28) mmol/L ABG O2 Saturation (95-98) % ABG Base Excess (-2.0-3.0) mmol/L Danny Test ABG Potassium (3.6-5.2) mmol/L A-a O2 Difference mm/Hg Respiratory Index Sodium (132-148) mmol/l Chloride (98-107) mmol/L Glucose (75-110) mg/dl Lactate (0.7-2.1) mmol/L Vent Mode Mechanical Rate FiO2 % Tidal Volume PEEP Crit Value Called To Crit Value Called By Crit Value Read Back Blood Gas Notified Time Potassium (3.6-5.2) mmol/L Carbon Dioxide (22-30) mmol/L Anion Gap (10-20) BUN (9-20) mg/dL Creatinine (0.8-1.5) mg/dL Est GFR ( Amer) Est GFR (Non-Af Amer) POC Glucose (mg/dL) 132 H 130 H (65-110) mg/dL Random Glucose (75-110) mg/dL Calcium (8.6-10.4) mg/dl Phosphorus (2.5-4.5) mg/dL Magnesium (1.6-2.3) mg/dL Total Bilirubin (0.2-1.3) mg/dL AST (17-59) U/L ALT (21-72) U/L Alkaline Phosphatase (38-126) U/L CK-MB (Mass) (0.0-3.38) ng/mL Troponin I (0.00-0.120) ng/mL Total Protein (6.3-8.3) g/dL Albumin (3.5-5.0) g/dL Globulin (2.2-3.9) gm/dL Albumin/Globulin Ratio (1.0-2.1) Arterial Blood Potassium (3.6-5.2) mmol/L Random Vancomycin ug/mL 08/12/18 08/12/18 08/12/18 Range/Units 12:24 11:06 10:28 WBC (4.8-10.8) K/uL RBC (4.40-5.90) Mil/uL Hgb (12.0-18.0) g/dL Hct (35.0-51.0) % MCV (80.0-94.0) fL MCH (27.0-31.0) pg MCHC (33.0-37.0) g/dL RDW (11.5-14.5) % Plt Count (130-400) K/uL MPV (7.2-11.7) fL Neut % (Auto) (50.0-75.0) % Lymph % (Auto) (20.0-40.0) % [place] % (Auto) (0.0-10.0) % Eos % (Auto) (0.0-4.0) % Baso % (Auto) (0.0-2.0) % Neut # (Auto) (1.8-7.0) K/uL Lymph # (Auto) (1.0-4.3) K/uL [place] # (Auto) (0.0-0.8) K/uL Eos # (Auto) (0.0-0.7) K/uL Baso # (Auto) (0.0-0.2) K/uL PT (9.7-12.2) SECONDS INR APTT Puncture Site pCO2 (35-45) mm/Hg pO2 (80-100) mm/Hg HCO3 (21-28) mmol/L ABG pH (7.35-7.45) ABG Total CO2 (22-28) mmol/L ABG O2 Saturation (95-98) % ABG Base Excess (-2.0-3.0) mmol/L Danny Test ABG Potassium (3.6-5.2) mmol/L A-a O2 Difference mm/Hg Respiratory Index Sodium (132-148) mmol/l Chloride (98-107) mmol/L Glucose (75-110) mg/dl Lactate (0.7-2.1) mmol/L Vent Mode Mechanical Rate FiO2 % Tidal Volume PEEP Crit Value Called To Crit Value Called By Crit Value Read Back Blood Gas Notified Time Potassium (3.6-5.2) mmol/L Carbon Dioxide (22-30) mmol/L Anion Gap (10-20) BUN (9-20) mg/dL Creatinine (0.8-1.5) mg/dL Est GFR ( Amer) Est GFR (Non-Af Amer) POC Glucose (mg/dL) 129 H 154 H 136 H (65-110) mg/dL Random Glucose (75-110) mg/dL Calcium (8.6-10.4) mg/dl Phosphorus (2.5-4.5) mg/dL Magnesium (1.6-2.3) mg/dL Total Bilirubin (0.2-1.3) mg/dL AST (17-59) U/L ALT (21-72) U/L Alkaline Phosphatase (38-126) U/L CK-MB (Mass) (0.0-3.38) ng/mL Troponin I (0.00-0.120) ng/mL Total Protein (6.3-8.3) g/dL Albumin (3.5-5.0) g/dL Globulin (2.2-3.9) gm/dL Albumin/Globulin Ratio (1.0-2.1) Arterial Blood Potassium (3.6-5.2) mmol/L Random Vancomycin ug/mL 08/12/18 08/12/18 08/12/18 Range/Units 09:25 09:24 09:24 WBC 16.2 H (4.8-10.8) K/uL RBC 3.84 L (4.40-5.90) Mil/uL Hgb 11.8 L (12.0-18.0) g/dL Hct 35.4 (35.0-51.0) % MCV 92.0 (80.0-94.0) fL MCH 30.6 (27.0-31.0) pg MCHC 33.2 (33.0-37.0) g/dL RDW 14.4 (11.5-14.5) % Plt Count 212 (130-400) K/uL MPV 7.8 (7.2-11.7) fL Neut % (Auto) 82.4 H (50.0-75.0) % Lymph % (Auto) 10.3 L (20.0-40.0) % [place] % (Auto) 7.1 (0.0-10.0) % Eos % (Auto) 0.0 (0.0-4.0) % Baso % (Auto) 0.2 (0.0-2.0) % Neut # (Auto) 13.3 H (1.8-7.0) K/uL Lymph # (Auto) 1.7 (1.0-4.3) K/uL [place] # (Auto) 1.2 H (0.0-0.8) K/uL Eos # (Auto) 0.0 (0.0-0.7) K/uL Baso # (Auto) 0.0 (0.0-0.2) K/uL PT (9.7-12.2) SECONDS INR APTT Puncture Site pCO2 (35-45) mm/Hg pO2 (80-100) mm/Hg HCO3 (21-28) mmol/L ABG pH (7.35-7.45) ABG Total CO2 (22-28) mmol/L ABG O2 Saturation (95-98) % ABG Base Excess (-2.0-3.0) mmol/L Danny Test ABG Potassium (3.6-5.2) mmol/L A-a O2 Difference mm/Hg Respiratory Index Sodium 137 (132-148) mmol/l Chloride 108 H (98-107) mmol/L Glucose (75-110) mg/dl Lactate (0.7-2.1) mmol/L Vent Mode Mechanical Rate FiO2 % Tidal Volume PEEP Crit Value Called To Crit Value Called By Crit Value Read Back Blood Gas Notified Time Potassium 5.2 (3.6-5.2) mmol/L Carbon Dioxide 19 L (22-30) mmol/L Anion Gap 16 (10-20) BUN 27 H (9-20) mg/dL Creatinine 1.4 (0.8-1.5) mg/dL Est GFR ( Amer) 59 Est GFR (Non-Af Amer) 49 POC Glucose (mg/dL) 141 H (65-110) mg/dL Random Glucose 130 H (75-110) mg/dL Calcium 7.3 L (8.6-10.4) mg/dl Phosphorus 4.8 H (2.5-4.5) mg/dL Magnesium 1.8 (1.6-2.3) mg/dL Total Bilirubin 0.3 (0.2-1.3) mg/dL AST 111 H (17-59) U/L ALT 66 (21-72) U/L Alkaline Phosphatase 65 (38-126) U/L CK-MB (Mass) (0.0-3.38) ng/mL Troponin I 2.2100 H* (0.00-0.120) ng/mL Total Protein 6.6 (6.3-8.3) g/dL Albumin 3.5 (3.5-5.0) g/dL Globulin 3.2 (2.2-3.9) gm/dL Albumin/Globulin Ratio 1.1 (1.0-2.1) Arterial Blood Potassium (3.6-5.2) mmol/L Random Vancomycin ug/mL 08/12/18 08/12/18 08/12/18 Range/Units 09:24 08:42 06:29 WBC (4.8-10.8) K/uL RBC (4.40-5.90) Mil/uL Hgb (12.0-18.0) g/dL Hct (35.0-51.0) % MCV (80.0-94.0) fL MCH (27.0-31.0) pg MCHC (33.0-37.0) g/dL RDW (11.5-14.5) % Plt Count (130-400) K/uL MPV (7.2-11.7) fL Neut % (Auto) (50.0-75.0) % Lymph % (Auto) (20.0-40.0) % [place] % (Auto) (0.0-10.0) % Eos % (Auto) (0.0-4.0) % Baso % (Auto) (0.0-2.0) % Neut # (Auto) (1.8-7.0) K/uL Lymph # (Auto) (1.0-4.3) K/uL [place] # (Auto) (0.0-0.8) K/uL Eos # (Auto) (0.0-0.7) K/uL Baso # (Auto) (0.0-0.2) K/uL PT 16.8 H (9.7-12.2) SECONDS INR 1.5 APTT Cancelled Puncture Site pCO2 (35-45) mm/Hg pO2 (80-100) mm/Hg HCO3 (21-28) mmol/L ABG pH (7.35-7.45) ABG Total CO2 (22-28) mmol/L ABG O2 Saturation (95-98) % ABG Base Excess (-2.0-3.0) mmol/L Danny Test ABG Potassium (3.6-5.2) mmol/L A-a O2 Difference mm/Hg Respiratory Index Sodium (132-148) mmol/l Chloride (98-107) mmol/L Glucose (75-110) mg/dl Lactate (0.7-2.1) mmol/L Vent Mode Mechanical Rate FiO2 % Tidal Volume PEEP Crit Value Called To Crit Value Called By Crit Value Read Back Blood Gas Notified Time Potassium (3.6-5.2) mmol/L Carbon Dioxide (22-30) mmol/L Anion Gap (10-20) BUN (9-20) mg/dL Creatinine (0.8-1.5) mg/dL Est GFR ( Amer) Est GFR (Non-Af Amer) POC Glucose (mg/dL) 143 H (65-110) mg/dL Random Glucose (75-110) mg/dL Calcium (8.6-10.4) mg/dl Phosphorus (2.5-4.5) mg/dL Magnesium (1.6-2.3) mg/dL Total Bilirubin (0.2-1.3) mg/dL AST (17-59) U/L ALT (21-72) U/L Alkaline Phosphatase (38-126) U/L CK-MB (Mass) 25.1 H (0.0-3.38) ng/mL Troponin I 2.3700 H* (0.00-0.120) ng/mL Total Protein (6.3-8.3) g/dL Albumin (3.5-5.0) g/dL Globulin (2.2-3.9) gm/dL Albumin/Globulin Ratio (1.0-2.1) Arterial Blood Potassium (3.6-5.2) mmol/L Random Vancomycin ug/mL 08/12/18 Range/Units 04:25 WBC (4.8-10.8) K/uL RBC (4.40-5.90) Mil/uL Hgb (12.0-18.0) g/dL Hct (35.0-51.0) % MCV (80.0-94.0) fL MCH (27.0-31.0) pg MCHC (33.0-37.0) g/dL RDW (11.5-14.5) % Plt Count (130-400) K/uL MPV (7.2-11.7) fL Neut % (Auto) (50.0-75.0) % Lymph % (Auto) (20.0-40.0) % [place] % (Auto) (0.0-10.0) % Eos % (Auto) (0.0-4.0) % Baso % (Auto) (0.0-2.0) % Neut # (Auto) (1.8-7.0) K/uL Lymph # (Auto) (1.0-4.3) K/uL [place] # (Auto) (0.0-0.8) K/uL Eos # (Auto) (0.0-0.7) K/uL Baso # (Auto) (0.0-0.2) K/uL PT (9.7-12.2) SECONDS INR APTT Puncture Site Rr pCO2 40 (35-45) mm/Hg pO2 177 H (80-100) mm/Hg HCO3 17.3 L (21-28) mmol/L ABG pH 7.24 L (7.35-7.45) ABG Total CO2 18.3 L (22-28) mmol/L ABG O2 Saturation 100.3 H (95-98) % ABG Base Excess -9.8 L (-2.0-3.0) mmol/L Danny Test Pos ABG Potassium 4.7 (3.6-5.2) mmol/L A-a O2 Difference 272.0 mm/Hg Respiratory Index 1.5 Sodium 138.0 (132-148) mmol/l Chloride 110.0 H (98-107) mmol/L Glucose 130 H (75-110) mg/dl Lactate 2.6 H (0.7-2.1) mmol/L Vent Mode Prvc Mechanical Rate 12 FiO2 70.0 % Tidal Volume 500 PEEP 5 Crit Value Called To Crit Value Called By Crit Value Read Back Blood Gas Notified Time Potassium (3.6-5.2) mmol/L Carbon Dioxide (22-30) mmol/L Anion Gap (10-20) BUN (9-20) mg/dL Creatinine (0.8-1.5) mg/dL Est GFR ( Amer) Est GFR (Non-Af Amer) POC Glucose (mg/dL) (65-110) mg/dL Random Glucose (75-110) mg/dL Calcium (8.6-10.4) mg/dl Phosphorus (2.5-4.5) mg/dL Magnesium (1.6-2.3) mg/dL Total Bilirubin (0.2-1.3) mg/dL AST (17-59) U/L ALT (21-72) U/L Alkaline Phosphatase (38-126) U/L CK-MB (Mass) (0.0-3.38) ng/mL Troponin I (0.00-0.120) ng/mL Total Protein (6.3-8.3) g/dL Albumin (3.5-5.0) g/dL Globulin (2.2-3.9) gm/dL Albumin/Globulin Ratio (1.0-2.1) Arterial Blood Potassium 4.7 (3.6-5.2) mmol/L Random Vancomycin ug/mL Laboratory Results - last 24 hr 08/12/18 08/12/18 08/12/18 04:25 06:29 08:42 WBC RBC Hgb Hct MCV MCH MCHC RDW Plt Count MPV Neut % (Auto) Lymph % (Auto) [place] % (Auto) Eos % (Auto) Baso % (Auto) Neut # (Auto) Lymph # (Auto) [place] # (Auto) Eos # (Auto) Baso # (Auto) PT INR APTT Puncture Site Rr pCO2 40 pO2 177 H HCO3 17.3 L ABG pH 7.24 L ABG Total CO2 18.3 L ABG O2 Saturation 100.3 H ABG Base Excess -9.8 L Danny Test Pos ABG Potassium 4.7 A-a O2 Difference 272.0 Respiratory Index 1.5 Sodium 138.0 Chloride 110.0 H Glucose 130 H Lactate 2.6 H Vent Mode Prvc Mechanical Rate 12 FiO2 70.0 Tidal Volume 500 PEEP 5 Crit Value Called To Crit Value Called By Crit Value Read Back Blood Gas Notified Time Potassium Carbon Dioxide Anion Gap BUN Creatinine Est GFR ( Amer) Est GFR (Non-Af Amer) POC Glucose (mg/dL) 143 H Random Glucose Calcium Phosphorus Magnesium Total Bilirubin AST ALT Alkaline Phosphatase CK-MB (Mass) 25.1 H Troponin I 2.3700 H* Total Protein Albumin Globulin Albumin/Globulin Ratio Arterial Blood Potassium 4.7 Random Vancomycin 08/12/18 08/12/18 08/12/18 09:24 09:24 09:24 WBC 16.2 H RBC 3.84 L Hgb 11.8 L Hct 35.4 MCV 92.0 MCH 30.6 MCHC 33.2 RDW 14.4 Plt Count 212 MPV 7.8 Neut % (Auto) 82.4 H Lymph % (Auto) 10.3 L [place] % (Auto) 7.1 Eos % (Auto) 0.0 Baso % (Auto) 0.2 Neut # (Auto) 13.3 H Lymph # (Auto) 1.7 [place] # (Auto) 1.2 H Eos # (Auto) 0.0 Baso # (Auto) 0.0 PT 16.8 H INR 1.5 APTT Cancelled Puncture Site pCO2 pO2 HCO3 ABG pH ABG Total CO2 ABG O2 Saturation ABG Base Excess Danny Test ABG Potassium A-a O2 Difference Respiratory Index Sodium 137 Chloride 108 H Glucose Lactate Vent Mode Mechanical Rate FiO2 Tidal Volume PEEP Crit Value Called To Crit Value Called By Crit Value Read Back Blood Gas Notified Time Potassium 5.2 Carbon Dioxide 19 L Anion Gap 16 BUN 27 H Creatinine 1.4 Est GFR ( Amer) 59 Est GFR (Non-Af Amer) 49 POC Glucose (mg/dL) Random Glucose 130 H Calcium 7.3 L Phosphorus 4.8 H Magnesium 1.8 Total Bilirubin 0.3 AST 111 H ALT 66 Alkaline Phosphatase 65 CK-MB (Mass) Troponin I 2.2100 H* Total Protein 6.6 Albumin 3.5 Globulin 3.2 Albumin/Globulin Ratio 1.1 Arterial Blood Potassium Random Vancomycin 08/12/18 08/12/18 08/12/18 09:25 10:28 11:06 WBC RBC Hgb Hct MCV MCH MCHC RDW Plt Count MPV Neut % (Auto) Lymph % (Auto) [place] % (Auto) Eos % (Auto) Baso % (Auto) Neut # (Auto) Lymph # (Auto) [place] # (Auto) Eos # (Auto) Baso # (Auto) PT INR APTT Puncture Site pCO2 pO2 HCO3 ABG pH ABG Total CO2 ABG O2 Saturation ABG Base Excess Danny Test ABG Potassium A-a O2 Difference Respiratory Index Sodium Chloride Glucose Lactate Vent Mode Mechanical Rate FiO2 Tidal Volume PEEP Crit Value Called To Crit Value Called By Crit Value Read Back Blood Gas Notified Time Potassium Carbon Dioxide Anion Gap BUN Creatinine Est GFR ( Amer) Est GFR (Non-Af Amer) POC Glucose (mg/dL) 141 H 136 H 154 H Random Glucose Calcium Phosphorus Magnesium Total Bilirubin AST ALT Alkaline Phosphatase CK-MB (Mass) Troponin I Total Protein Albumin Globulin Albumin/Globulin Ratio Arterial Blood Potassium Random Vancomycin 08/12/18 08/12/18 08/12/18 12:24 13:35 13:37 WBC RBC Hgb Hct MCV MCH MCHC RDW Plt Count MPV Neut % (Auto) Lymph % (Auto) [place] % (Auto) Eos % (Auto) Baso % (Auto) Neut # (Auto) Lymph # (Auto) [place] # (Auto) Eos # (Auto) Baso # (Auto) PT 16.8 H INR 1.5 APTT 147 H* D Puncture Site pCO2 pO2 HCO3 ABG pH ABG Total CO2 ABG O2 Saturation ABG Base Excess Danny Test ABG Potassium A-a O2 Difference Respiratory Index Sodium Chloride Glucose Lactate Vent Mode Mechanical Rate FiO2 Tidal Volume PEEP Crit Value Called To Crit Value Called By Crit Value Read Back Blood Gas Notified Time Potassium Carbon Dioxide Anion Gap BUN Creatinine Est GFR ( Amer) Est GFR (Non-Af Amer) POC Glucose (mg/dL) 129 H 130 H Random Glucose Calcium Phosphorus Magnesium Total Bilirubin AST ALT Alkaline Phosphatase CK-MB (Mass) Troponin I Total Protein Albumin Globulin Albumin/Globulin Ratio Arterial Blood Potassium Random Vancomycin 08/12/18 08/12/18 08/12/18 14:53 15:52 16:20 WBC RBC Hgb Hct MCV MCH MCHC RDW Plt Count MPV Neut % (Auto) Lymph % (Auto) [place] % (Auto) Eos % (Auto) Baso % (Auto) Neut # (Auto) Lymph # (Auto) [place] # (Auto) Eos # (Auto) Baso # (Auto) PT INR APTT Puncture Site pCO2 pO2 HCO3 ABG pH ABG Total CO2 ABG O2 Saturation ABG Base Excess Danny Test ABG Potassium A-a O2 Difference Respiratory Index Sodium Chloride Glucose Lactate Vent Mode Mechanical Rate FiO2 Tidal Volume PEEP Crit Value Called To Crit Value Called By Crit Value Read Back Blood Gas Notified Time Potassium Carbon Dioxide Anion Gap BUN Creatinine Est GFR ( Amer) Est GFR (Non-Af Amer) POC Glucose (mg/dL) 132 H 131 H 128 H Random Glucose Calcium Phosphorus Magnesium Total Bilirubin AST ALT Alkaline Phosphatase CK-MB (Mass) Troponin I Total Protein Albumin Globulin Albumin/Globulin Ratio Arterial Blood Potassium Random Vancomycin 08/12/18 08/12/18 08/12/18 16:21 16:21 17:08 WBC 16.5 H RBC 3.71 L Hgb 11.1 L Hct 34.0 L MCV 91.6 MCH 30.0 MCHC 32.7 L RDW 14.4 Plt Count 196 MPV 7.5 Neut % (Auto) 82.5 H Lymph % (Auto) 10.4 L [place] % (Auto) 7.0 Eos % (Auto) 0.0 Baso % (Auto) 0.1 Neut # (Auto) 13.7 H Lymph # (Auto) 1.7 [place] # (Auto) 1.2 H Eos # (Auto) 0.0 Baso # (Auto) 0.0 PT INR APTT Puncture Site pCO2 pO2 HCO3 ABG pH ABG Total CO2 ABG O2 Saturation ABG Base Excess Danny Test ABG Potassium A-a O2 Difference Respiratory Index Sodium 140 Chloride 113 H Glucose Lactate Vent Mode Mechanical Rate FiO2 Tidal Volume PEEP Crit Value Called To Crit Value Called By Crit Value Read Back Blood Gas Notified Time Potassium 5.0 Carbon Dioxide 21 L Anion Gap 11 BUN 28 H Creatinine 1.5 Est GFR ( Amer) 54 Est GFR (Non-Af Amer) 45 POC Glucose (mg/dL) 126 H Random Glucose 121 H Calcium 7.3 L Phosphorus 5.2 H Magnesium 1.7 Total Bilirubin 0.4 AST 99 H ALT 61 Alkaline Phosphatase 53 CK-MB (Mass) Troponin I Total Protein 6.0 L Albumin 3.2 L Globulin 2.8 Albumin/Globulin Ratio 1.1 Arterial Blood Potassium Random Vancomycin 08/12/18 08/12/18 08/12/18 18:10 19:00 20:06 WBC RBC Hgb Hct MCV MCH MCHC RDW Plt Count MPV Neut % (Auto) Lymph % (Auto) [place] % (Auto) Eos % (Auto) Baso % (Auto) Neut # (Auto) Lymph # (Auto) [place] # (Auto) Eos # (Auto) Baso # (Auto) PT INR APTT Puncture Site pCO2 pO2 HCO3 ABG pH ABG Total CO2 ABG O2 Saturation ABG Base Excess Danny Test ABG Potassium A-a O2 Difference Respiratory Index Sodium Chloride Glucose Lactate Vent Mode Mechanical Rate FiO2 Tidal Volume PEEP Crit Value Called To Crit Value Called By Crit Value Read Back Blood Gas Notified Time Potassium Carbon Dioxide Anion Gap BUN Creatinine Est GFR ( Amer) Est GFR (Non-Af Amer) POC Glucose (mg/dL) 118 H 122 H 119 H Random Glucose Calcium Phosphorus Magnesium Total Bilirubin AST ALT Alkaline Phosphatase CK-MB (Mass) Troponin I Total Protein Albumin Globulin Albumin/Globulin Ratio Arterial Blood Potassium Random Vancomycin 08/12/18 08/12/18 08/12/18 21:02 21:38 21:38 WBC 16.6 H RBC 3.72 L Hgb 11.1 L Hct 34.1 L MCV 91.7 MCH 30.0 MCHC 32.7 L RDW 14.3 Plt Count 193 MPV 7.4 Neut % (Auto) Lymph % (Auto) [place] % (Auto) Eos % (Auto) Baso % (Auto) Neut # (Auto) Lymph # (Auto) [place] # (Auto) Eos # (Auto) Baso # (Auto) PT INR APTT 110 H* D Puncture Site pCO2 pO2 HCO3 ABG pH ABG Total CO2 ABG O2 Saturation ABG Base Excess Danny Test ABG Potassium A-a O2 Difference Respiratory Index Sodium Chloride Glucose Lactate Vent Mode Mechanical Rate FiO2 Tidal Volume PEEP Crit Value Called To Crit Value Called By Crit Value Read Back Blood Gas Notified Time Potassium Carbon Dioxide Anion Gap BUN Creatinine Est GFR ( Amer) Est GFR (Non-Af Amer) POC Glucose (mg/dL) 136 H Random Glucose Calcium Phosphorus Magnesium Total Bilirubin AST ALT Alkaline Phosphatase CK-MB (Mass) Troponin I Total Protein Albumin Globulin Albumin/Globulin Ratio Arterial Blood Potassium Random Vancomycin 08/12/18 08/12/18 08/12/18 21:38 22:07 23:09 WBC RBC Hgb Hct MCV MCH MCHC RDW Plt Count MPV Neut % (Auto) Lymph % (Auto) [place] % (Auto) Eos % (Auto) Baso % (Auto) Neut # (Auto) Lymph # (Auto) [place] # (Auto) Eos # (Auto) Baso # (Auto) PT INR APTT Puncture Site pCO2 pO2 HCO3 ABG pH ABG Total CO2 ABG O2 Saturation ABG Base Excess Danny Test ABG Potassium A-a O2 Difference Respiratory Index Sodium 140 Chloride 113 H Glucose Lactate Vent Mode Mechanical Rate FiO2 Tidal Volume PEEP Crit Value Called To Crit Value Called By Crit Value Read Back Blood Gas Notified Time Potassium 5.0 Carbon Dioxide 21 L Anion Gap 11 BUN 28 H Creatinine 1.5 Est GFR ( Amer) 54 Est GFR (Non-Af Amer) 45 POC Glucose (mg/dL) 118 H 109 Random Glucose 114 H Calcium 7.2 L Phosphorus 4.9 H Magnesium 1.7 Total Bilirubin 0.4 AST 95 H ALT 58 Alkaline Phosphatase 56 CK-MB (Mass) Troponin I Total Protein 6.2 L Albumin 3.3 L Globulin 2.9 Albumin/Globulin Ratio 1.1 Arterial Blood Potassium Random Vancomycin 08/12/18 08/13/18 08/13/18 23:29 00:58 02:08 WBC RBC Hgb Hct MCV MCH MCHC RDW Plt Count MPV Neut % (Auto) Lymph % (Auto) [place] % (Auto) Eos % (Auto) Baso % (Auto) Neut # (Auto) Lymph # (Auto) [place] # (Auto) Eos # (Auto) Baso # (Auto) PT INR APTT Puncture Site pCO2 pO2 HCO3 ABG pH ABG Total CO2 ABG O2 Saturation ABG Base Excess Danny Test ABG Potassium A-a O2 Difference Respiratory Index Sodium Chloride Glucose Lactate Vent Mode Mechanical Rate FiO2 Tidal Volume PEEP Crit Value Called To Crit Value Called By Crit Value Read Back Blood Gas Notified Time Potassium Carbon Dioxide Anion Gap BUN Creatinine Est GFR ( Amer) Est GFR (Non-Af Amer) POC Glucose (mg/dL) 133 H 132 H 147 H Random Glucose Calcium Phosphorus Magnesium Total Bilirubin AST ALT Alkaline Phosphatase CK-MB (Mass) Troponin I Total Protein Albumin Globulin Albumin/Globulin Ratio Arterial Blood Potassium Random Vancomycin 08/13/18 08/13/18 08/13/18 02:59 04:05 04:20 WBC RBC Hgb Hct MCV MCH MCHC RDW Plt Count MPV Neut % (Auto) Lymph % (Auto) [place] % (Auto) Eos % (Auto) Baso % (Auto) Neut # (Auto) Lymph # (Auto) [place] # (Auto) Eos # (Auto) Baso # (Auto) PT INR APTT Puncture Site Rb pCO2 48 H pO2 63 L HCO3 16.9 L ABG pH 7.19 L* ABG Total CO2 19.8 L ABG O2 Saturation 91.2 L ABG Base Excess -9.9 L Danny Test Na ABG Potassium 5.4 H A-a O2 Difference 234.0 Respiratory Index 3.7 Sodium 141.0 Chloride 115.0 H Glucose 129 H Lactate 1.6 Vent Mode Prvc Mechanical Rate 12 FiO2 50.0 Tidal Volume 500 PEEP 5 Crit Value Called To Arcenio allen/rn Crit Value Called By Jacob petersen/rt Crit Value Read Back Y Blood Gas Notified Time 430 Potassium Carbon Dioxide Anion Gap BUN Creatinine Est GFR ( Amer) Est GFR (Non-Af Amer) POC Glucose (mg/dL) 132 H 133 H Random Glucose Calcium Phosphorus Magnesium Total Bilirubin AST ALT Alkaline Phosphatase CK-MB (Mass) Troponin I Total Protein Albumin Globulin Albumin/Globulin Ratio Arterial Blood Potassium 5.4 H Random Vancomycin 08/13/18 08/13/18 08/13/18 04:57 06:06 06:06 WBC 16.7 H RBC 3.71 L Hgb 11.2 L Hct 33.9 L MCV 91.5 MCH 30.2 MCHC 33.0 RDW 14.4 Plt Count 194 MPV 8.5 Neut % (Auto) 86.5 H Lymph % (Auto) 7.4 L [place] % (Auto) 6.0 Eos % (Auto) 0.0 Baso % (Auto) 0.1 Neut # (Auto) 14.5 H Lymph # (Auto) 1.2 [place] # (Auto) 1.0 H Eos # (Auto) 0.0 Baso # (Auto) 0.0 PT INR APTT Puncture Site pCO2 pO2 HCO3 ABG pH ABG Total CO2 ABG O2 Saturation ABG Base Excess Danny Test ABG Potassium A-a O2 Difference Respiratory Index Sodium 141 Chloride 112 H Glucose Lactate Vent Mode Mechanical Rate FiO2 Tidal Volume PEEP Crit Value Called To Crit Value Called By Crit Value Read Back Blood Gas Notified Time Potassium 4.8 Carbon Dioxide 20 L Anion Gap 14 BUN 28 H Creatinine 1.5 Est GFR ( Amer) 54 Est GFR (Non-Af Amer) 45 POC Glucose (mg/dL) 140 H Random Glucose 131 H Calcium 7.0 L Phosphorus 5.2 H Magnesium 1.7 Total Bilirubin 0.4 AST 86 H ALT 59 Alkaline Phosphatase 57 CK-MB (Mass) Troponin I Total Protein 6.3 Albumin 3.3 L Globulin 3.0 Albumin/Globulin Ratio 1.1 Arterial Blood Potassium Random Vancomycin 08/13/18 08/13/18 08/13/18 06:06 06:06 06:13 WBC RBC Hgb Hct MCV MCH MCHC RDW Plt Count MPV Neut % (Auto) Lymph % (Auto) [place] % (Auto) Eos % (Auto) Baso % (Auto) Neut # (Auto) Lymph # (Auto) [place] # (Auto) Eos # (Auto) Baso # (Auto) PT INR APTT 75 H D Puncture Site pCO2 pO2 HCO3 ABG pH ABG Total CO2 ABG O2 Saturation ABG Base Excess Danny Test ABG Potassium A-a O2 Difference Respiratory Index Sodium Chloride Glucose Lactate Vent Mode Mechanical Rate FiO2 Tidal Volume PEEP Crit Value Called To Crit Value Called By Crit Value Read Back Blood Gas Notified Time Potassium Carbon Dioxide Anion Gap BUN Creatinine Est GFR ( Amer) Est GFR (Non-Af Amer) POC Glucose (mg/dL) 130 H Random Glucose Calcium Phosphorus Magnesium Total Bilirubin AST ALT Alkaline Phosphatase CK-MB (Mass) Troponin I Total Protein Albumin Globulin Albumin/Globulin Ratio Arterial Blood Potassium Random Vancomycin 10.1 08/13/18 06:53 WBC RBC Hgb Hct MCV MCH MCHC RDW Plt Count MPV Neut % (Auto) Lymph % (Auto) [place] % (Auto) Eos % (Auto) Baso % (Auto) Neut # (Auto) Lymph # (Auto) [place] # (Auto) Eos # (Auto) Baso # (Auto) PT INR APTT Puncture Site pCO2 pO2 HCO3 ABG pH ABG Total CO2 ABG O2 Saturation ABG Base Excess Danny Test ABG Potassium A-a O2 Difference Respiratory Index Sodium Chloride Glucose Lactate Vent Mode Mechanical Rate FiO2 Tidal Volume PEEP Crit Value Called To Crit Value Called By Crit Value Read Back Blood Gas Notified Time Potassium Carbon Dioxide Anion Gap BUN Creatinine Est GFR ( Amer) Est GFR (Non-Af Amer) POC Glucose (mg/dL) 101 Random Glucose Calcium Phosphorus Magnesium Total Bilirubin AST ALT Alkaline Phosphatase CK-MB (Mass) Troponin I Total Protein Albumin Globulin Albumin/Globulin Ratio Arterial Blood Potassium Random Vancomycin Radiology Impressions: Radiology Impressions Chest X-Ray 08/11/18 18:38 IMPRESSION: Interval nasogastric tube deployment with tip barely in the stomach. Advancement 10-15 cm into the stomach further is recommended follow-up by confirmation chest or abdomen radiography. Left central venous line in good apparent position. Endotracheal tube unchanged in position grossly. Potential limited pulmonary vascular congestion versus atypical pneumonitis given peripheral increase in reticular markings. Chest X-Ray 08/11/18 21:12 IMPRESSION: Interval increase in pulmonary edema pattern with perihilar infiltrates not excluded. Nasogastric tube adequately advanced into the stomach region with left central venous line retracted into the left brachiocephalic vein junction with the superior vena cava. ET tube stable in position. Chest X-Ray 08/12/18 06:00 IMPRESSION: Worsening pulmonary edema Other findings as above. Fingerstick Blood Sugar Results: 101 Review of Systems - Review of Systems Systems not reviewed;Unavailable: Intubated Critical Care Progress Note - Ventilator Checklist Head of Bed 30 Degrees: Yes Daily Sedation Vacation: Yes Daily Assessment of Readiness to Wean: Yes Daily Spontaneous Breathing Trial: Yes PUD Prophalyxis: Yes DVT Prophylaxis: Yes Oral Care with Chlorhexidine Gluconate {CHG}: Yes - Vent Settings MODE:: PRVC TIDAL VOLUME:: 450 RESP RATE:: 16 FIO2:: 50 PEEP:: 5 - Extremities/Vascular Does the Patient have a Central Venous Catheter?: Yes Insertion Site: Internal Jugular Vein Does the Patient need a Central Venous Catheter?: Yes Does the Patient have a Villan[place]va Catheter?: Yes Does the Patient need a Villan[place]va Catheter?: Yes Catheter Insertion Criteria: Need for accurate measurement of output in critically ill patient Assessment/Plan - Assessment and Plan (Free Text) Assessment: Patient is an 83 yo male w/ PMH of Alzheimer's disease, CAD, atrial fibrillation, hypertension, hypercholesterolemia, dementia admitted to ICU s/p intubated and cardiac arrest in field. CT head pending, initial trop negative. Dr. Dupont reviewed EKG and stated no code heart at this time. Neuro Intubated, On propofol drip (versed not running), patient not awake alert and oriented CT head shows remote vs chronic infarction in frontal lobe Pulm Intubated and on ventilator with ET tube in place CXR shows pulm edema- no lasix given in setting of low bp CV Cardiac Arrest in field- rosc achieved EKG in field showed ST elevation, EKG in ED showed Afib w/ diffuse ST segment changes Heparin drip initiated as per cardio (ashley), Lopressor bid g tube; Further management of cardiac as per cardio Code Freeze initiated Echo- severely impaired LV EF (25-30); hypokinesis in the apical septal wall, ischemic cardiomyopathy; mild AR repeat troponins elevated- further management as per cardiology Dobutamine drip added for low blood pressure- titrate as needed Low bp can be in setting of rewarming due to vasodilation 1 x dose of digoxin GI Protonix; no active issues Endo Q6H accuchecks; hypoglycemic protocol; ISS Renal no active issues Villanueva for strict Is/Os Metabolic acidosis and resp acidosis; Elevated lactate ID Zosyn- concern for aspiration PNA- ID following Disposition: further cardiac arrest management as per cardio; code freeze completed DVT ppx: SCDs, heparin GI ppx: protonix <Margarito Ocampo S - Last Filed: 08/13/18 16:16> CCU Subjective - Physician Review Critical Care Time Spent (in minutes): 45 CCU Objective - Vital Signs / Intake & Output Vital Signs (Last 4 hours): Vital Signs Temp 08/13/18 13:43 99.0 F Intake and Output (Last 8hrs): Intake & Output 08/13/18 08/13/18 08/13/18 06:59 14:59 22:59 Intake Total 1441.9 977.6 Output Total 1130 420 Balance 311.9 557.6 Weight 149 lb 9.6 oz Intake: IV 100 250 Intake, IV Amount 1341.9 727.6 Left Hand 28.7 20.5 rt ij tlc distal port 163.2 102.0 rt ij tlc middle port 1150 500 rt ij tlc proximal port 105.1 Output: Urine 1130 420 Urethral ([place]) 1130 420 - Medications Active Medications: Active Medications Generic Name Dose Route Start Last Admin Trade Name Freq PRN Reason Stop Dose Admin Acetaminophen 975 mg 08/12/18 11:22 08/13/18 13:43 Tylenol 650mg/20.3ml Solution Ud PO 975 mg Q6H PRN Administration shivering Dextrose 0 ml 08/11/18 15:29 Dextrose 50% Inj IV STAT PRN Hypoglycemia Protocol Protocol Dextrose 0 gm 08/11/18 15:29 Glutose 15 PO ONCE PRN Hypoglycemia Protocol Protocol Glucagon 0 mg 08/11/18 15:29 Glucagen Diagnostic Kit IM STAT PRN Hypoglycemia Protocol Protocol Dextrose 1,000 mls @ 0 mls/hr 08/11/18 15:29 Dextrose 5% In Water 1000 Ml IV .Q0M PRN Hypoglycemia Protocol Protocol Per Protocol Heparin Sodium/Sodium Chloride 25,000 units in 250 mls @ 8.165 mls/hr 08/11/18 17:33 08/12/18 23:30 Heparin 82727 Units/250ml 1/2 Normal Saline IV 6 units/kg/hr .Q24H PRN 4.082 mls/hr ADJUST RATE PER PROTOCOL Titration Protocol 12 UNITS/KG/HR Propofol 1,000 mg in 100 mls @ 2.041 mls/hr 08/11/18 19:35 08/13/18 13:51 Diprivan IV 60 mcg/kg/min .Q24H PRN 24.494 mls/hr TITRATE PER MD ORDER Administration Protocol 5 MCG/KG/MIN Midazolam HCl 100 mg/ Sodium 100 mls @ 1.36 mls/hr 08/11/18 20:30 08/12/18 21:10 Chloride IV Not Given .Q24H JESSE Protocol 0.02 MG/KG/HR Piperacillin Sod/Tazobactam 100 mls @ 200 mls/hr 08/12/18 18:00 08/13/18 09:24 Sod 3.375 gm/ Sodium Chloride IVPB 200 mls/hr Q8H JESSE Administration Protocol Sodium Bicarbonate 150 meq/ 1,150 mls @ 50 mls/hr 08/13/18 06:04 08/13/18 08:25 Dextrose IV 50 mls/hr .Q23H JESSE Administration Norepinephrine Bitartrate 4 mg 254 mls @ 15.24 mls/hr 08/13/18 13:23 / Dextrose IV .[id number] PRN TITRATE PER MD ORDER Protocol 4 MCG/MIN Insulin Human Regular 0 unit 08/11/18 16:30 08/13/18 11:30 Novolin R SC Not Given ACHS JESSE Protocol Metoprolol Tartrate 50 mg 08/11/18 18:00 08/13/18 09:26 Lopressor PO Not Given BID JESSE Pantoprazole Sodium 40 mg 08/11/18 15:30 08/13/18 09:25 Protonix Inj IVP 40 mg DAILY JESSE Administration - Patient Studies Lab Studies: Microbiology Studies 08/12/18 09:24 MRSA Culture (Admit) - Final Naris MRSA NOT DETECTED 08/12/18 10:00 Blood Culture - Preliminary Blood-Venous NO GROWTH AFTER 24 HOURS 08/12/18 10:30 Blood Culture - Preliminary Blood-Venous NO GROWTH AFTER 24 HOURS 08/12/18 18:48 Gram Stain - Final Trachasp 08/11/18 19:26 Urine Culture - Final Urine,Catheterized No Growth (<1,000 CFU/ML) Lab Studies 08/13/18 08/13/18 08/13/18 Range/Units 13:35 13:35 13:35 WBC 11.4 H (4.8-10.8) K/uL RBC 3.06 L (4.40-5.90) Mil/uL Hgb 9.4 L (12.0-18.0) g/dL Hct 28.0 L (35.0-51.0) % MCV 91.5 (80.0-94.0) fL MCH 30.7 (27.0-31.0) pg MCHC 33.5 (33.0-37.0) g/dL RDW 14.4 (11.5-14.5) % Plt Count 159 (130-400) K/uL MPV 8.2 (7.2-11.7) fL Neut % (Auto) 84.8 H (50.0-75.0) % Lymph % (Auto) 7.6 L (20.0-40.0) % [place] % (Auto) 7.2 (0.0-10.0) % Eos % (Auto) 0.1 (0.0-4.0) % Baso % (Auto) 0.3 (0.0-2.0) % Neut # (Auto) 9.7 H (1.8-7.0) K/uL Lymph # (Auto) 0.9 L (1.0-4.3) K/uL [place] # (Auto) 0.8 (0.0-0.8) K/uL Eos # (Auto) 0.0 (0.0-0.7) K/uL Baso # (Auto) 0.0 (0.0-0.2) K/uL Neutrophils % (Manual) 87 H (50-75) % Band Neutrophils % 2 (0-2) % Lymphocytes % (Manual) 5 L (20-40) % Monocytes % (Manual) 6 (0-10) % Platelet Estimate Normal (NORMAL) RBC Morphology Hypochromasia (manual) Slight Poikilocytosis (manual Slight Anisocytosis (manual) Slight APTT 51 H D (21-34) SECONDS Puncture Site pCO2 (35-45) mm/Hg pO2 (80-100) mm/Hg HCO3 (21-28) mmol/L ABG pH (7.35-7.45) ABG Total CO2 (22-28) mmol/L ABG O2 Saturation (95-98) % ABG Base Excess (-2.0-3.0) mmol/L Danny Test ABG Potassium (3.6-5.2) mmol/L A-a O2 Difference mm/Hg Respiratory Index Glucose (75-110) mg/dl Lactate (0.7-2.1) mmol/L Vent Mode Mechanical Rate FiO2 % Tidal Volume PEEP Crit Value Called To Crit Value Called By Crit Value Read Back Blood Gas Notified Time Sodium 136 (132-148) mmol/L Potassium 3.8 (3.6-5.2) mmol/L Chloride 109 H (98-107) mmol/L Carbon Dioxide 21 L (22-30) mmol/L Anion Gap 11 (10-20) BUN 30 H (9-20) mg/dL Creatinine 1.5 (0.8-1.5) mg/dL Est GFR ( Amer) 54 Est GFR (Non-Af Amer) 45 POC Glucose (mg/dL) (65-110) mg/dL Random Glucose 170 H D (75-110) mg/dL Calcium 6.8 L (8.6-10.4) mg/dl Phosphorus 3.0 (2.5-4.5) mg/dL Magnesium 1.6 (1.6-2.3) mg/dL Total Bilirubin 0.5 (0.2-1.3) mg/dL AST 64 H D (17-59) U/L ALT 49 (21-72) U/L Alkaline Phosphatase 45 (38-126) U/L Total Protein 5.4 L (6.3-8.3) g/dL Albumin 2.7 L (3.5-5.0) g/dL Globulin 2.7 (2.2-3.9) gm/dL Albumin/Globulin Ratio 1.0 (1.0-2.1) Arterial Blood Potassium (3.6-5.2) mmol/L Random Vancomycin ug/mL 08/13/18 08/13/18 08/13/18 Range/Units 12:01 10:57 10:24 WBC (4.8-10.8) K/uL RBC (4.40-5.90) Mil/uL Hgb (12.0-18.0) g/dL Hct (35.0-51.0) % MCV (80.0-94.0) fL MCH (27.0-31.0) pg MCHC (33.0-37.0) g/dL RDW (11.5-14.5) % Plt Count (130-400) K/uL MPV (7.2-11.7) fL Neut % (Auto) (50.0-75.0) % Lymph % (Auto) (20.0-40.0) % [place] % (Auto) (0.0-10.0) % Eos % (Auto) (0.0-4.0) % Baso % (Auto) (0.0-2.0) % Neut # (Auto) (1.8-7.0) K/uL Lymph # (Auto) (1.0-4.3) K/uL [place] # (Auto) (0.0-0.8) K/uL Eos # (Auto) (0.0-0.7) K/uL Baso # (Auto) (0.0-0.2) K/uL Neutrophils % (Manual) (50-75) % Band Neutrophils % (0-2) % Lymphocytes % (Manual) (20-40) % Monocytes % (Manual) (0-10) % Platelet Estimate (NORMAL) RBC Morphology Hypochromasia (manual) Poikilocytosis (manual Anisocytosis (manual) APTT (21-34) SECONDS Puncture Site pCO2 (35-45) mm/Hg pO2 (80-100) mm/Hg HCO3 (21-28) mmol/L ABG pH (7.35-7.45) ABG Total CO2 (22-28) mmol/L ABG O2 Saturation (95-98) % ABG Base Excess (-2.0-3.0) mmol/L Danny Test ABG Potassium (3.6-5.2) mmol/L A-a O2 Difference mm/Hg Respiratory Index Glucose (75-110) mg/dl Lactate (0.7-2.1) mmol/L Vent Mode Mechanical Rate FiO2 % Tidal Volume PEEP Crit Value Called To Crit Value Called By Crit Value Read Back Blood Gas Notified Time Sodium (132-148) mmol/L Potassium (3.6-5.2) mmol/L Chloride (98-107) mmol/L Carbon Dioxide (22-30) mmol/L Anion Gap (10-20) BUN (9-20) mg/dL Creatinine (0.8-1.5) mg/dL Est GFR ( Amer) Est GFR (Non-Af Amer) POC Glucose (mg/dL) 178 H 163 H 165 H (65-110) mg/dL Random Glucose (75-110) mg/dL Calcium (8.6-10.4) mg/dl Phosphorus (2.5-4.5) mg/dL Magnesium (1.6-2.3) mg/dL Total Bilirubin (0.2-1.3) mg/dL AST (17-59) U/L ALT (21-72) U/L Alkaline Phosphatase (38-126) U/L Total Protein (6.3-8.3) g/dL Albumin (3.5-5.0) g/dL Globulin (2.2-3.9) gm/dL Albumin/Globulin Ratio (1.0-2.1) Arterial Blood Potassium (3.6-5.2) mmol/L Random Vancomycin ug/mL 08/13/18 08/13/18 08/13/18 Range/Units 09:05 07:50 06:53 WBC (4.8-10.8) K/uL RBC (4.40-5.90) Mil/uL Hgb (12.0-18.0) g/dL Hct (35.0-51.0) % MCV (80.0-94.0) fL MCH (27.0-31.0) pg MCHC (33.0-37.0) g/dL RDW (11.5-14.5) % Plt Count (130-400) K/uL MPV (7.2-11.7) fL Neut % (Auto) (50.0-75.0) % Lymph % (Auto) (20.0-40.0) % [place] % (Auto) (0.0-10.0) % Eos % (Auto) (0.0-4.0) % Baso % (Auto) (0.0-2.0) % Neut # (Auto) (1.8-7.0) K/uL Lymph # (Auto) (1.0-4.3) K/uL [place] # (Auto) (0.0-0.8) K/uL Eos # (Auto) (0.0-0.7) K/uL Baso # (Auto) (0.0-0.2) K/uL Neutrophils % (Manual) (50-75) % Band Neutrophils % (0-2) % Lymphocytes % (Manual) (20-40) % Monocytes % (Manual) (0-10) % Platelet Estimate (NORMAL) RBC Morphology Hypochromasia (manual) Poikilocytosis (manual Anisocytosis (manual) APTT (21-34) SECONDS Puncture Site pCO2 (35-45) mm/Hg pO2 (80-100) mm/Hg HCO3 (21-28) mmol/L ABG pH (7.35-7.45) ABG Total CO2 (22-28) mmol/L ABG O2 Saturation (95-98) % ABG Base Excess (-2.0-3.0) mmol/L Danny Test ABG Potassium (3.6-5.2) mmol/L A-a O2 Difference mm/Hg Respiratory Index Glucose (75-110) mg/dl Lactate (0.7-2.1) mmol/L Vent Mode Mechanical Rate FiO2 % Tidal Volume PEEP Crit Value Called To Crit Value Called By Crit Value Read Back Blood Gas Notified Time Sodium (132-148) mmol/L Potassium (3.6-5.2) mmol/L Chloride (98-107) mmol/L Carbon Dioxide (22-30) mmol/L Anion Gap (10-20) BUN (9-20) mg/dL Creatinine (0.8-1.5) mg/dL Est GFR ( Amer) Est GFR (Non-Af Amer) POC Glucose (mg/dL) 141 H 155 H 101 (65-110) mg/dL Random Glucose (75-110) mg/dL Calcium (8.6-10.4) mg/dl Phosphorus (2.5-4.5) mg/dL Magnesium (1.6-2.3) mg/dL Total Bilirubin (0.2-1.3) mg/dL AST (17-59) U/L ALT (21-72) U/L Alkaline Phosphatase (38-126) U/L Total Protein (6.3-8.3) g/dL Albumin (3.5-5.0) g/dL Globulin (2.2-3.9) gm/dL Albumin/Globulin Ratio (1.0-2.1) Arterial Blood Potassium (3.6-5.2) mmol/L Random Vancomycin ug/mL 08/13/18 08/13/18 08/13/18 Range/Units 06:13 06:06 06:06 WBC (4.8-10.8) K/uL RBC (4.40-5.90) Mil/uL Hgb (12.0-18.0) g/dL Hct (35.0-51.0) % MCV (80.0-94.0) fL MCH (27.0-31.0) pg MCHC (33.0-37.0) g/dL RDW (11.5-14.5) % Plt Count (130-400) K/uL MPV (7.2-11.7) fL Neut % (Auto) (50.0-75.0) % Lymph % (Auto) (20.0-40.0) % [place] % (Auto) (0.0-10.0) % Eos % (Auto) (0.0-4.0) % Baso % (Auto) (0.0-2.0) % Neut # (Auto) (1.8-7.0) K/uL Lymph # (Auto) (1.0-4.3) K/uL [place] # (Auto) (0.0-0.8) K/uL Eos # (Auto) (0.0-0.7) K/uL Baso # (Auto) (0.0-0.2) K/uL Neutrophils % (Manual) (50-75) % Band Neutrophils % (0-2) % Lymphocytes % (Manual) (20-40) % Monocytes % (Manual) (0-10) % Platelet Estimate (NORMAL) RBC Morphology Hypochromasia (manual) Poikilocytosis (manual Anisocytosis (manual) APTT 75 H D (21-34) SECONDS Puncture Site pCO2 (35-45) mm/Hg pO2 (80-100) mm/Hg HCO3 (21-28) mmol/L ABG pH (7.35-7.45) ABG Total CO2 (22-28) mmol/L ABG O2 Saturation (95-98) % ABG Base Excess (-2.0-3.0) mmol/L Danny Test ABG Potassium (3.6-5.2) mmol/L A-a O2 Difference mm/Hg Respiratory Index Glucose (75-110) mg/dl Lactate (0.7-2.1) mmol/L Vent Mode Mechanical Rate FiO2 % Tidal Volume PEEP Crit Value Called To Crit Value Called By Crit Value Read Back Blood Gas Notified Time Sodium (132-148) mmol/L Potassium (3.6-5.2) mmol/L Chloride (98-107) mmol/L Carbon Dioxide (22-30) mmol/L Anion Gap (10-20) BUN (9-20) mg/dL Creatinine (0.8-1.5) mg/dL Est GFR ( Amer) Est GFR (Non-Af Amer) POC Glucose (mg/dL) 130 H (65-110) mg/dL Random Glucose (75-110) mg/dL Calcium (8.6-10.4) mg/dl Phosphorus (2.5-4.5) mg/dL Magnesium (1.6-2.3) mg/dL Total Bilirubin (0.2-1.3) mg/dL AST (17-59) U/L ALT (21-72) U/L Alkaline Phosphatase (38-126) U/L Total Protein (6.3-8.3) g/dL Albumin (3.5-5.0) g/dL Globulin (2.2-3.9) gm/dL Albumin/Globulin Ratio (1.0-2.1) Arterial Blood Potassium (3.6-5.2) mmol/L Random Vancomycin 10.1 ug/mL 08/13/18 08/13/18 08/13/18 Range/Units 06:06 06:06 04:57 WBC 16.7 H (4.8-10.8) K/uL RBC 3.71 L (4.40-5.90) Mil/uL Hgb 11.2 L (12.0-18.0) g/dL Hct 33.9 L (35.0-51.0) % MCV 91.5 (80.0-94.0) fL MCH 30.2 (27.0-31.0) pg MCHC 33.0 (33.0-37.0) g/dL RDW 14.4 (11.5-14.5) % Plt Count 194 (130-400) K/uL MPV 8.5 (7.2-11.7) fL Neut % (Auto) 86.5 H (50.0-75.0) % Lymph % (Auto) 7.4 L (20.0-40.0) % [place] % (Auto) 6.0 (0.0-10.0) % Eos % (Auto) 0.0 (0.0-4.0) % Baso % (Auto) 0.1 (0.0-2.0) % Neut # (Auto) 14.5 H (1.8-7.0) K/uL Lymph # (Auto) 1.2 (1.0-4.3) K/uL [place] # (Auto) 1.0 H (0.0-0.8) K/uL Eos # (Auto) 0.0 (0.0-0.7) K/uL Baso # (Auto) 0.0 (0.0-0.2) K/uL Neutrophils % (Manual) 88 H (50-75) % Band Neutrophils % (0-2) % Lymphocytes % (Manual) 6 L (20-40) % Monocytes % (Manual) 6 (0-10) % Platelet Estimate Normal (NORMAL) RBC Morphology Normal Hypochromasia (manual) Poikilocytosis (manual Anisocytosis (manual) APTT (21-34) SECONDS Puncture Site pCO2 (35-45) mm/Hg pO2 (80-100) mm/Hg HCO3 (21-28) mmol/L ABG pH (7.35-7.45) ABG Total CO2 (22-28) mmol/L ABG O2 Saturation (95-98) % ABG Base Excess (-2.0-3.0) mmol/L Danny Test ABG Potassium (3.6-5.2) mmol/L A-a O2 Difference mm/Hg Respiratory Index Glucose (75-110) mg/dl Lactate (0.7-2.1) mmol/L Vent Mode Mechanical Rate FiO2 % Tidal Volume PEEP Crit Value Called To Crit Value Called By Crit Value Read Back Blood Gas Notified Time Sodium 141 (132-148) mmol/L Potassium 4.8 (3.6-5.2) mmol/L Chloride 112 H (98-107) mmol/L Carbon Dioxide 20 L (22-30) mmol/L Anion Gap 14 (10-20) BUN 28 H (9-20) mg/dL Creatinine 1.5 (0.8-1.5) mg/dL Est GFR ( Amer) 54 Est GFR (Non-Af Amer) 45 POC Glucose (mg/dL) 140 H (65-110) mg/dL Random Glucose 131 H (75-110) mg/dL Calcium 7.0 L (8.6-10.4) mg/dl Phosphorus 5.2 H (2.5-4.5) mg/dL Magnesium 1.7 (1.6-2.3) mg/dL Total Bilirubin 0.4 (0.2-1.3) mg/dL AST 86 H (17-59) U/L ALT 59 (21-72) U/L Alkaline Phosphatase 57 (38-126) U/L Total Protein 6.3 (6.3-8.3) g/dL Albumin 3.3 L (3.5-5.0) g/dL Globulin 3.0 (2.2-3.9) gm/dL Albumin/Globulin Ratio 1.1 (1.0-2.1) Arterial Blood Potassium (3.6-5.2) mmol/L Random Vancomycin ug/mL 08/13/18 08/13/18 08/13/18 Range/Units 04:20 04:05 02:59 WBC (4.8-10.8) K/uL RBC (4.40-5.90) Mil/uL Hgb (12.0-18.0) g/dL Hct (35.0-51.0) % MCV (80.0-94.0) fL MCH (27.0-31.0) pg MCHC (33.0-37.0) g/dL RDW (11.5-14.5) % Plt Count (130-400) K/uL MPV (7.2-11.7) fL Neut % (Auto) (50.0-75.0) % Lymph % (Auto) (20.0-40.0) % [place] % (Auto) (0.0-10.0) % Eos % (Auto) (0.0-4.0) % Baso % (Auto) (0.0-2.0) % Neut # (Auto) (1.8-7.0) K/uL Lymph # (Auto) (1.0-4.3) K/uL [place] # (Auto) (0.0-0.8) K/uL Eos # (Auto) (0.0-0.7) K/uL Baso # (Auto) (0.0-0.2) K/uL Neutrophils % (Manual) (50-75) % Band Neutrophils % (0-2) % Lymphocytes % (Manual) (20-40) % Monocytes % (Manual) (0-10) % Platelet Estimate (NORMAL) RBC Morphology Hypochromasia (manual) Poikilocytosis (manual Anisocytosis (manual) APTT (21-34) SECONDS Puncture Site Rb pCO2 48 H (35-45) mm/Hg pO2 63 L (80-100) mm/Hg HCO3 16.9 L (21-28) mmol/L ABG pH 7.19 L* (7.35-7.45) ABG Total CO2 19.8 L (22-28) mmol/L ABG O2 Saturation 91.2 L (95-98) % ABG Base Excess -9.9 L (-2.0-3.0) mmol/L Danny Test Na ABG Potassium 5.4 H (3.6-5.2) mmol/L A-a O2 Difference 234.0 mm/Hg Respiratory Index 3.7 Glucose 129 H (75-110) mg/dl Lactate 1.6 (0.7-2.1) mmol/L Vent Mode Prvc Mechanical Rate 12 FiO2 50.0 % Tidal Volume 500 PEEP 5 Crit Value Called To Arcenio allen/rn Crit Value Called By Jacob petersen/rt Crit Value Read Back Y Blood Gas Notified Time 430 Sodium 141.0 (132-148) mmol/L Potassium (3.6-5.2) mmol/L Chloride 115.0 H (98-107) mmol/L Carbon Dioxide (22-30) mmol/L Anion Gap (10-20) BUN (9-20) mg/dL Creatinine (0.8-1.5) mg/dL Est GFR ( Amer) Est GFR (Non-Af Amer) POC Glucose (mg/dL) 133 H 132 H (65-110) mg/dL Random Glucose (75-110) mg/dL Calcium (8.6-10.4) mg/dl Phosphorus (2.5-4.5) mg/dL Magnesium (1.6-2.3) mg/dL Total Bilirubin (0.2-1.3) mg/dL AST (17-59) U/L ALT (21-72) U/L Alkaline Phosphatase (38-126) U/L Total Protein (6.3-8.3) g/dL Albumin (3.5-5.0) g/dL Globulin (2.2-3.9) gm/dL Albumin/Globulin Ratio (1.0-2.1) Arterial Blood Potassium 5.4 H (3.6-5.2) mmol/L Random Vancomycin ug/mL 08/13/18 08/13/18 08/12/18 Range/Units 02:08 00:58 23:29 WBC (4.8-10.8) K/uL RBC (4.40-5.90) Mil/uL Hgb (12.0-18.0) g/dL Hct (35.0-51.0) % MCV (80.0-94.0) fL MCH (27.0-31.0) pg MCHC (33.0-37.0) g/dL RDW (11.5-14.5) % Plt Count (130-400) K/uL MPV (7.2-11.7) fL Neut % (Auto) (50.0-75.0) % Lymph % (Auto) (20.0-40.0) % [place] % (Auto) (0.0-10.0) % Eos % (Auto) (0.0-4.0) % Baso % (Auto) (0.0-2.0) % Neut # (Auto) (1.8-7.0) K/uL Lymph # (Auto) (1.0-4.3) K/uL [place] # (Auto) (0.0-0.8) K/uL Eos # (Auto) (0.0-0.7) K/uL Baso # (Auto) (0.0-0.2) K/uL Neutrophils % (Manual) (50-75) % Band Neutrophils % (0-2) % Lymphocytes % (Manual) (20-40) % Monocytes % (Manual) (0-10) % Platelet Estimate (NORMAL) RBC Morphology Hypochromasia (manual) Poikilocytosis (manual Anisocytosis (manual) APTT (21-34) SECONDS Puncture Site pCO2 (35-45) mm/Hg pO2 (80-100) mm/Hg HCO3 (21-28) mmol/L ABG pH (7.35-7.45) ABG Total CO2 (22-28) mmol/L ABG O2 Saturation (95-98) % ABG Base Excess (-2.0-3.0) mmol/L Danny Test ABG Potassium (3.6-5.2) mmol/L A-a O2 Difference mm/Hg Respiratory Index Glucose (75-110) mg/dl Lactate (0.7-2.1) mmol/L Vent Mode Mechanical Rate FiO2 % Tidal Volume PEEP Crit Value Called To Crit Value Called By Crit Value Read Back Blood Gas Notified Time Sodium (132-148) mmol/L Potassium (3.6-5.2) mmol/L Chloride (98-107) mmol/L Carbon Dioxide (22-30) mmol/L Anion Gap (10-20) BUN (9-20) mg/dL Creatinine (0.8-1.5) mg/dL Est GFR ( Amer) Est GFR (Non-Af Amer) POC Glucose (mg/dL) 147 H 132 H 133 H (65-110) mg/dL Random Glucose (75-110) mg/dL Calcium (8.6-10.4) mg/dl Phosphorus (2.5-4.5) mg/dL Magnesium (1.6-2.3) mg/dL Total Bilirubin (0.2-1.3) mg/dL AST (17-59) U/L ALT (21-72) U/L Alkaline Phosphatase (38-126) U/L Total Protein (6.3-8.3) g/dL Albumin (3.5-5.0) g/dL Globulin (2.2-3.9) gm/dL Albumin/Globulin Ratio (1.0-2.1) Arterial Blood Potassium (3.6-5.2) mmol/L Random Vancomycin ug/mL 08/12/18 08/12/18 08/12/18 Range/Units 23:09 22:07 21:38 WBC (4.8-10.8) K/uL RBC (4.40-5.90) Mil/uL Hgb (12.0-18.0) g/dL Hct (35.0-51.0) % MCV (80.0-94.0) fL MCH (27.0-31.0) pg MCHC (33.0-37.0) g/dL RDW (11.5-14.5) % Plt Count (130-400) K/uL MPV (7.2-11.7) fL Neut % (Auto) (50.0-75.0) % Lymph % (Auto) (20.0-40.0) % [place] % (Auto) (0.0-10.0) % Eos % (Auto) (0.0-4.0) % Baso % (Auto) (0.0-2.0) % Neut # (Auto) (1.8-7.0) K/uL Lymph # (Auto) (1.0-4.3) K/uL [place] # (Auto) (0.0-0.8) K/uL Eos # (Auto) (0.0-0.7) K/uL Baso # (Auto) (0.0-0.2) K/uL Neutrophils % (Manual) (50-75) % Band Neutrophils % (0-2) % Lymphocytes % (Manual) (20-40) % Monocytes % (Manual) (0-10) % Platelet Estimate (NORMAL) RBC Morphology Hypochromasia (manual) Poikilocytosis (manual Anisocytosis (manual) APTT (21-34) SECONDS Puncture Site pCO2 (35-45) mm/Hg pO2 (80-100) mm/Hg HCO3 (21-28) mmol/L ABG pH (7.35-7.45) ABG Total CO2 (22-28) mmol/L ABG O2 Saturation (95-98) % ABG Base Excess (-2.0-3.0) mmol/L Danny Test ABG Potassium (3.6-5.2) mmol/L A-a O2 Difference mm/Hg Respiratory Index Glucose (75-110) mg/dl Lactate (0.7-2.1) mmol/L Vent Mode Mechanical Rate FiO2 % Tidal Volume PEEP Crit Value Called To Crit Value Called By Crit Value Read Back Blood Gas Notified Time Sodium 140 (132-148) mmol/L Potassium 5.0 (3.6-5.2) mmol/L Chloride 113 H (98-107) mmol/L Carbon Dioxide 21 L (22-30) mmol/L Anion Gap 11 (10-20) BUN 28 H (9-20) mg/dL Creatinine 1.5 (0.8-1.5) mg/dL Est GFR ( Amer) 54 Est GFR (Non-Af Amer) 45 POC Glucose (mg/dL) 109 118 H (65-110) mg/dL Random Glucose 114 H (75-110) mg/dL Calcium 7.2 L (8.6-10.4) mg/dl Phosphorus 4.9 H (2.5-4.5) mg/dL Magnesium 1.7 (1.6-2.3) mg/dL Total Bilirubin 0.4 (0.2-1.3) mg/dL AST 95 H (17-59) U/L ALT 58 (21-72) U/L Alkaline Phosphatase 56 (38-126) U/L Total Protein 6.2 L (6.3-8.3) g/dL Albumin 3.3 L (3.5-5.0) g/dL Globulin 2.9 (2.2-3.9) gm/dL Albumin/Globulin Ratio 1.1 (1.0-2.1) Arterial Blood Potassium (3.6-5.2) mmol/L Random Vancomycin ug/mL 08/12/18 08/12/18 08/12/18 Range/Units 21:38 21:38 21:02 WBC 16.6 H (4.8-10.8) K/uL RBC 3.72 L (4.40-5.90) Mil/uL Hgb 11.1 L (12.0-18.0) g/dL Hct 34.1 L (35.0-51.0) % MCV 91.7 (80.0-94.0) fL MCH 30.0 (27.0-31.0) pg MCHC 32.7 L (33.0-37.0) g/dL RDW 14.3 (11.5-14.5) % Plt Count 193 (130-400) K/uL MPV 7.4 (7.2-11.7) fL Neut % (Auto) (50.0-75.0) % Lymph % (Auto) (20.0-40.0) % [place] % (Auto) (0.0-10.0) % Eos % (Auto) (0.0-4.0) % Baso % (Auto) (0.0-2.0) % Neut # (Auto) (1.8-7.0) K/uL Lymph # (Auto) (1.0-4.3) K/uL [place] # (Auto) (0.0-0.8) K/uL Eos # (Auto) (0.0-0.7) K/uL Baso # (Auto) (0.0-0.2) K/uL Neutrophils % (Manual) (50-75) % Band Neutrophils % (0-2) % Lymphocytes % (Manual) (20-40) % Monocytes % (Manual) (0-10) % Platelet Estimate (NORMAL) RBC Morphology Hypochromasia (manual) Poikilocytosis (manual Anisocytosis (manual) APTT 110 H* D (21-34) SECONDS Puncture Site pCO2 (35-45) mm/Hg pO2 (80-100) mm/Hg HCO3 (21-28) mmol/L ABG pH (7.35-7.45) ABG Total CO2 (22-28) mmol/L ABG O2 Saturation (95-98) % ABG Base Excess (-2.0-3.0) mmol/L Danny Test ABG Potassium (3.6-5.2) mmol/L A-a O2 Difference mm/Hg Respiratory Index Glucose (75-110) mg/dl Lactate (0.7-2.1) mmol/L Vent Mode Mechanical Rate FiO2 % Tidal Volume PEEP Crit Value Called To Crit Value Called By Crit Value Read Back Blood Gas Notified Time Sodium (132-148) mmol/L Potassium (3.6-5.2) mmol/L Chloride (98-107) mmol/L Carbon Dioxide (22-30) mmol/L Anion Gap (10-20) BUN (9-20) mg/dL Creatinine (0.8-1.5) mg/dL Est GFR ( Amer) Est GFR (Non-Af Amer) POC Glucose (mg/dL) 136 H (65-110) mg/dL Random Glucose (75-110) mg/dL Calcium (8.6-10.4) mg/dl Phosphorus (2.5-4.5) mg/dL Magnesium (1.6-2.3) mg/dL Total Bilirubin (0.2-1.3) mg/dL AST (17-59) U/L ALT (21-72) U/L Alkaline Phosphatase (38-126) U/L Total Protein (6.3-8.3) g/dL Albumin (3.5-5.0) g/dL Globulin (2.2-3.9) gm/dL Albumin/Globulin Ratio (1.0-2.1) Arterial Blood Potassium (3.6-5.2) mmol/L Random Vancomycin ug/mL 08/12/18 08/12/18 08/12/18 Range/Units 20:06 19:00 18:10 WBC (4.8-10.8) K/uL RBC (4.40-5.90) Mil/uL Hgb (12.0-18.0) g/dL Hct (35.0-51.0) % MCV (80.0-94.0) fL MCH (27.0-31.0) pg MCHC (33.0-37.0) g/dL RDW (11.5-14.5) % Plt Count (130-400) K/uL MPV (7.2-11.7) fL Neut % (Auto) (50.0-75.0) % Lymph % (Auto) (20.0-40.0) % [place] % (Auto) (0.0-10.0) % Eos % (Auto) (0.0-4.0) % Baso % (Auto) (0.0-2.0) % Neut # (Auto) (1.8-7.0) K/uL Lymph # (Auto) (1.0-4.3) K/uL [place] # (Auto) (0.0-0.8) K/uL Eos # (Auto) (0.0-0.7) K/uL Baso # (Auto) (0.0-0.2) K/uL Neutrophils % (Manual) (50-75) % Band Neutrophils % (0-2) % Lymphocytes % (Manual) (20-40) % Monocytes % (Manual) (0-10) % Platelet Estimate (NORMAL) RBC Morphology Hypochromasia (manual) Poikilocytosis (manual Anisocytosis (manual) APTT (21-34) SECONDS Puncture Site pCO2 (35-45) mm/Hg pO2 (80-100) mm/Hg HCO3 (21-28) mmol/L ABG pH (7.35-7.45) ABG Total CO2 (22-28) mmol/L ABG O2 Saturation (95-98) % ABG Base Excess (-2.0-3.0) mmol/L Danny Test ABG Potassium (3.6-5.2) mmol/L A-a O2 Difference mm/Hg Respiratory Index Glucose (75-110) mg/dl Lactate (0.7-2.1) mmol/L Vent Mode Mechanical Rate FiO2 % Tidal Volume PEEP Crit Value Called To Crit Value Called By Crit Value Read Back Blood Gas Notified Time Sodium (132-148) mmol/L Potassium (3.6-5.2) mmol/L Chloride (98-107) mmol/L Carbon Dioxide (22-30) mmol/L Anion Gap (10-20) BUN (9-20) mg/dL Creatinine (0.8-1.5) mg/dL Est GFR ( Amer) Est GFR (Non-Af Amer) POC Glucose (mg/dL) 119 H 122 H 118 H (65-110) mg/dL Random Glucose (75-110) mg/dL Calcium (8.6-10.4) mg/dl Phosphorus (2.5-4.5) mg/dL Magnesium (1.6-2.3) mg/dL Total Bilirubin (0.2-1.3) mg/dL AST (17-59) U/L ALT (21-72) U/L Alkaline Phosphatase (38-126) U/L Total Protein (6.3-8.3) g/dL Albumin (3.5-5.0) g/dL Globulin (2.2-3.9) gm/dL Albumin/Globulin Ratio (1.0-2.1) Arterial Blood Potassium (3.6-5.2) mmol/L Random Vancomycin ug/mL 08/12/18 08/12/18 08/12/18 Range/Units 17:08 16:21 16:21 WBC 16.5 H (4.8-10.8) K/uL RBC 3.71 L (4.40-5.90) Mil/uL Hgb 11.1 L (12.0-18.0) g/dL Hct 34.0 L (35.0-51.0) % MCV 91.6 (80.0-94.0) fL MCH 30.0 (27.0-31.0) pg MCHC 32.7 L (33.0-37.0) g/dL RDW 14.4 (11.5-14.5) % Plt Count 196 (130-400) K/uL MPV 7.5 (7.2-11.7) fL Neut % (Auto) 82.5 H (50.0-75.0) % Lymph % (Auto) 10.4 L (20.0-40.0) % [place] % (Auto) 7.0 (0.0-10.0) % Eos % (Auto) 0.0 (0.0-4.0) % Baso % (Auto) 0.1 (0.0-2.0) % Neut # (Auto) 13.7 H (1.8-7.0) K/uL Lymph # (Auto) 1.7 (1.0-4.3) K/uL [place] # (Auto) 1.2 H (0.0-0.8) K/uL Eos # (Auto) 0.0 (0.0-0.7) K/uL Baso # (Auto) 0.0 (0.0-0.2) K/uL Neutrophils % (Manual) (50-75) % Band Neutrophils % (0-2) % Lymphocytes % (Manual) (20-40) % Monocytes % (Manual) (0-10) % Platelet Estimate (NORMAL) RBC Morphology Hypochromasia (manual) Poikilocytosis (manual Anisocytosis (manual) APTT (21-34) SECONDS Puncture Site pCO2 (35-45) mm/Hg pO2 (80-100) mm/Hg HCO3 (21-28) mmol/L ABG pH (7.35-7.45) ABG Total CO2 (22-28) mmol/L ABG O2 Saturation (95-98) % ABG Base Excess (-2.0-3.0) mmol/L Danny Test ABG Potassium (3.6-5.2) mmol/L A-a O2 Difference mm/Hg Respiratory Index Glucose (75-110) mg/dl Lactate (0.7-2.1) mmol/L Vent Mode Mechanical Rate FiO2 % Tidal Volume PEEP Crit Value Called To Crit Value Called By Crit Value Read Back Blood Gas Notified Time Sodium 140 (132-148) mmol/L Potassium 5.0 (3.6-5.2) mmol/L Chloride 113 H (98-107) mmol/L Carbon Dioxide 21 L (22-30) mmol/L Anion Gap 11 (10-20) BUN 28 H (9-20) mg/dL Creatinine 1.5 (0.8-1.5) mg/dL Est GFR ( Amer) 54 Est GFR (Non-Af Amer) 45 POC Glucose (mg/dL) 126 H (65-110) mg/dL Random Glucose 121 H (75-110) mg/dL Calcium 7.3 L (8.6-10.4) mg/dl Phosphorus 5.2 H (2.5-4.5) mg/dL Magnesium 1.7 (1.6-2.3) mg/dL Total Bilirubin 0.4 (0.2-1.3) mg/dL AST 99 H (17-59) U/L ALT 61 (21-72) U/L Alkaline Phosphatase 53 (38-126) U/L Total Protein 6.0 L (6.3-8.3) g/dL Albumin 3.2 L (3.5-5.0) g/dL Globulin 2.8 (2.2-3.9) gm/dL Albumin/Globulin Ratio 1.1 (1.0-2.1) Arterial Blood Potassium (3.6-5.2) mmol/L Random Vancomycin ug/mL 08/12/18 Range/Units 16:20 WBC (4.8-10.8) K/uL RBC (4.40-5.90) Mil/uL Hgb (12.0-18.0) g/dL Hct (35.0-51.0) % MCV (80.0-94.0) fL MCH (27.0-31.0) pg MCHC (33.0-37.0) g/dL RDW (11.5-14.5) % Plt Count (130-400) K/uL MPV (7.2-11.7) fL Neut % (Auto) (50.0-75.0) % Lymph % (Auto) (20.0-40.0) % [place] % (Auto) (0.0-10.0) % Eos % (Auto) (0.0-4.0) % Baso % (Auto) (0.0-2.0) % Neut # (Auto) (1.8-7.0) K/uL Lymph # (Auto) (1.0-4.3) K/uL [place] # (Auto) (0.0-0.8) K/uL Eos # (Auto) (0.0-0.7) K/uL Baso # (Auto) (0.0-0.2) K/uL Neutrophils % (Manual) (50-75) % Band Neutrophils % (0-2) % Lymphocytes % (Manual) (20-40) % Monocytes % (Manual) (0-10) % Platelet Estimate (NORMAL) RBC Morphology Hypochromasia (manual) Poikilocytosis (manual Anisocytosis (manual) APTT (21-34) SECONDS Puncture Site pCO2 (35-45) mm/Hg pO2 (80-100) mm/Hg HCO3 (21-28) mmol/L ABG pH (7.35-7.45) ABG Total CO2 (22-28) mmol/L ABG O2 Saturation (95-98) % ABG Base Excess (-2.0-3.0) mmol/L Danny Test ABG Potassium (3.6-5.2) mmol/L A-a O2 Difference mm/Hg Respiratory Index Glucose (75-110) mg/dl Lactate (0.7-2.1) mmol/L Vent Mode Mechanical Rate FiO2 % Tidal Volume PEEP Crit Value Called To Crit Value Called By Crit Value Read Back Blood Gas Notified Time Sodium (132-148) mmol/L Potassium (3.6-5.2) mmol/L Chloride (98-107) mmol/L Carbon Dioxide (22-30) mmol/L Anion Gap (10-20) BUN (9-20) mg/dL Creatinine (0.8-1.5) mg/dL Est GFR ( Amer) Est GFR (Non-Af Amer) POC Glucose (mg/dL) 128 H (65-110) mg/dL Random Glucose (75-110) mg/dL Calcium (8.6-10.4) mg/dl Phosphorus (2.5-4.5) mg/dL Magnesium (1.6-2.3) mg/dL Total Bilirubin (0.2-1.3) mg/dL AST (17-59) U/L ALT (21-72) U/L Alkaline Phosphatase (38-126) U/L Total Protein (6.3-8.3) g/dL Albumin (3.5-5.0) g/dL Globulin (2.2-3.9) gm/dL Albumin/Globulin Ratio (1.0-2.1) Arterial Blood Potassium (3.6-5.2) mmol/L Random Vancomycin ug/mL Laboratory Results - last 24 hr 08/12/18 08/12/18 08/12/18 16:20 16:21 16:21 WBC 16.5 H RBC 3.71 L Hgb 11.1 L Hct 34.0 L MCV 91.6 MCH 30.0 MCHC 32.7 L RDW 14.4 Plt Count 196 MPV 7.5 Neut % (Auto) 82.5 H Lymph % (Auto) 10.4 L [place] % (Auto) 7.0 Eos % (Auto) 0.0 Baso % (Auto) 0.1 Neut # (Auto) 13.7 H Lymph # (Auto) 1.7 [place] # (Auto) 1.2 H Eos # (Auto) 0.0 Baso # (Auto) 0.0 Neutrophils % (Manual) Band Neutrophils % Lymphocytes % (Manual) Monocytes % (Manual) Platelet Estimate RBC Morphology Hypochromasia (manual) Poikilocytosis (manual Anisocytosis (manual) APTT Puncture Site pCO2 pO2 HCO3 ABG pH ABG Total CO2 ABG O2 Saturation ABG Base Excess Danny Test ABG Potassium A-a O2 Difference Respiratory Index Glucose Lactate Vent Mode Mechanical Rate FiO2 Tidal Volume PEEP Crit Value Called To Crit Value Called By Crit Value Read Back Blood Gas Notified Time Sodium 140 Potassium 5.0 Chloride 113 H Carbon Dioxide 21 L Anion Gap 11 BUN 28 H Creatinine 1.5 Est GFR ( Amer) 54 Est GFR (Non-Af Amer) 45 POC Glucose (mg/dL) 128 H Random Glucose 121 H Calcium 7.3 L Phosphorus 5.2 H Magnesium 1.7 Total Bilirubin 0.4 AST 99 H ALT 61 Alkaline Phosphatase 53 Total Protein 6.0 L Albumin 3.2 L Globulin 2.8 Albumin/Globulin Ratio 1.1 Arterial Blood Potassium Random Vancomycin 08/12/18 08/12/18 08/12/18 17:08 18:10 19:00 WBC RBC Hgb Hct MCV MCH MCHC RDW Plt Count MPV Neut % (Auto) Lymph % (Auto) [place] % (Auto) Eos % (Auto) Baso % (Auto) Neut # (Auto) Lymph # (Auto) [place] # (Auto) Eos # (Auto) Baso # (Auto) Neutrophils % (Manual) Band Neutrophils % Lymphocytes % (Manual) Monocytes % (Manual) Platelet Estimate RBC Morphology Hypochromasia (manual) Poikilocytosis (manual Anisocytosis (manual) APTT Puncture Site pCO2 pO2 HCO3 ABG pH ABG Total CO2 ABG O2 Saturation ABG Base Excess Danny Test ABG Potassium A-a O2 Difference Respiratory Index Glucose Lactate Vent Mode Mechanical Rate FiO2 Tidal Volume PEEP Crit Value Called To Crit Value Called By Crit Value Read Back Blood Gas Notified Time Sodium Potassium Chloride Carbon Dioxide Anion Gap BUN Creatinine Est GFR ( Amer) Est GFR (Non-Af Amer) POC Glucose (mg/dL) 126 H 118 H 122 H Random Glucose Calcium Phosphorus Magnesium Total Bilirubin AST ALT Alkaline Phosphatase Total Protein Albumin Globulin Albumin/Globulin Ratio Arterial Blood Potassium Random Vancomycin 08/12/18 08/12/18 08/12/18 20:06 21:02 21:38 WBC 16.6 H RBC 3.72 L Hgb 11.1 L Hct 34.1 L MCV 91.7 MCH 30.0 MCHC 32.7 L RDW 14.3 Plt Count 193 MPV 7.4 Neut % (Auto) Lymph % (Auto) [place] % (Auto) Eos % (Auto) Baso % (Auto) Neut # (Auto) Lymph # (Auto) [place] # (Auto) Eos # (Auto) Baso # (Auto) Neutrophils % (Manual) Band Neutrophils % Lymphocytes % (Manual) Monocytes % (Manual) Platelet Estimate RBC Morphology Hypochromasia (manual) Poikilocytosis (manual Anisocytosis (manual) APTT Puncture Site pCO2 pO2 HCO3 ABG pH ABG Total CO2 ABG O2 Saturation ABG Base Excess Danny Test ABG Potassium A-a O2 Difference Respiratory Index Glucose Lactate Vent Mode Mechanical Rate FiO2 Tidal Volume PEEP Crit Value Called To Crit Value Called By Crit Value Read Back Blood Gas Notified Time Sodium Potassium Chloride Carbon Dioxide Anion Gap BUN Creatinine Est GFR ( Amer) Est GFR (Non-Af Amer) POC Glucose (mg/dL) 119 H 136 H Random Glucose Calcium Phosphorus Magnesium Total Bilirubin AST ALT Alkaline Phosphatase Total Protein Albumin Globulin Albumin/Globulin Ratio Arterial Blood Potassium Random Vancomycin 08/12/18 08/12/18 08/12/18 21:38 21:38 22:07 WBC RBC Hgb Hct MCV MCH MCHC RDW Plt Count MPV Neut % (Auto) Lymph % (Auto) [place] % (Auto) Eos % (Auto) Baso % (Auto) Neut # (Auto) Lymph # (Auto) [place] # (Auto) Eos # (Auto) Baso # (Auto) Neutrophils % (Manual) Band Neutrophils % Lymphocytes % (Manual) Monocytes % (Manual) Platelet Estimate RBC Morphology Hypochromasia (manual) Poikilocytosis (manual Anisocytosis (manual) APTT 110 H* D Puncture Site pCO2 pO2 HCO3 ABG pH ABG Total CO2 ABG O2 Saturation ABG Base Excess Danny Test ABG Potassium A-a O2 Difference Respiratory Index Glucose Lactate Vent Mode Mechanical Rate FiO2 Tidal Volume PEEP Crit Value Called To Crit Value Called By Crit Value Read Back Blood Gas Notified Time Sodium 140 Potassium 5.0 Chloride 113 H Carbon Dioxide 21 L Anion Gap 11 BUN 28 H Creatinine 1.5 Est GFR ( Amer) 54 Est GFR (Non-Af Amer) 45 POC Glucose (mg/dL) 118 H Random Glucose 114 H Calcium 7.2 L Phosphorus 4.9 H Magnesium 1.7 Total Bilirubin 0.4 AST 95 H ALT 58 Alkaline Phosphatase 56 Total Protein 6.2 L Albumin 3.3 L Globulin 2.9 Albumin/Globulin Ratio 1.1 Arterial Blood Potassium Random Vancomycin 08/12/18 08/12/18 08/13/18 23:09 23:29 00:58 WBC RBC Hgb Hct MCV MCH MCHC RDW Plt Count MPV Neut % (Auto) Lymph % (Auto) [place] % (Auto) Eos % (Auto) Baso % (Auto) Neut # (Auto) Lymph # (Auto) [place] # (Auto) Eos # (Auto) Baso # (Auto) Neutrophils % (Manual) Band Neutrophils % Lymphocytes % (Manual) Monocytes % (Manual) Platelet Estimate RBC Morphology Hypochromasia (manual) Poikilocytosis (manual Anisocytosis (manual) APTT Puncture Site pCO2 pO2 HCO3 ABG pH ABG Total CO2 ABG O2 Saturation ABG Base Excess Danny Test ABG Potassium A-a O2 Difference Respiratory Index Glucose Lactate Vent Mode Mechanical Rate FiO2 Tidal Volume PEEP Crit Value Called To Crit Value Called By Crit Value Read Back Blood Gas Notified Time Sodium Potassium Chloride Carbon Dioxide Anion Gap BUN Creatinine Est GFR ( Amer) Est GFR (Non-Af Amer) POC Glucose (mg/dL) 109 133 H 132 H Random Glucose Calcium Phosphorus Magnesium Total Bilirubin AST ALT Alkaline Phosphatase Total Protein Albumin Globulin Albumin/Globulin Ratio Arterial Blood Potassium Random Vancomycin 08/13/18 08/13/18 08/13/18 02:08 02:59 04:05 WBC RBC Hgb Hct MCV MCH MCHC RDW Plt Count MPV Neut % (Auto) Lymph % (Auto) [place] % (Auto) Eos % (Auto) Baso % (Auto) Neut # (Auto) Lymph # (Auto) [place] # (Auto) Eos # (Auto) Baso # (Auto) Neutrophils % (Manual) Band Neutrophils % Lymphocytes % (Manual) Monocytes % (Manual) Platelet Estimate RBC Morphology Hypochromasia (manual) Poikilocytosis (manual Anisocytosis (manual) APTT Puncture Site pCO2 pO2 HCO3 ABG pH ABG Total CO2 ABG O2 Saturation ABG Base Excess Danny Test ABG Potassium A-a O2 Difference Respiratory Index Glucose Lactate Vent Mode Mechanical Rate FiO2 Tidal Volume PEEP Crit Value Called To Crit Value Called By Crit Value Read Back Blood Gas Notified Time Sodium Potassium Chloride Carbon Dioxide Anion Gap BUN Creatinine Est GFR ( Amer) Est GFR (Non-Af Amer) POC Glucose (mg/dL) 147 H 132 H 133 H Random Glucose Calcium Phosphorus Magnesium Total Bilirubin AST ALT Alkaline Phosphatase Total Protein Albumin Globulin Albumin/Globulin Ratio Arterial Blood Potassium Random Vancomycin 08/13/18 08/13/18 08/13/18 04:20 04:57 06:06 WBC 16.7 H RBC 3.71 L Hgb 11.2 L Hct 33.9 L MCV 91.5 MCH 30.2 MCHC 33.0 RDW 14.4 Plt Count 194 MPV 8.5 Neut % (Auto) 86.5 H Lymph % (Auto) 7.4 L [place] % (Auto) 6.0 Eos % (Auto) 0.0 Baso % (Auto) 0.1 Neut # (Auto) 14.5 H Lymph # (Auto) 1.2 [place] # (Auto) 1.0 H Eos # (Auto) 0.0 Baso # (Auto) 0.0 Neutrophils % (Manual) 88 H Band Neutrophils % Lymphocytes % (Manual) 6 L Monocytes % (Manual) 6 Platelet Estimate Normal RBC Morphology Normal Hypochromasia (manual) Poikilocytosis (manual Anisocytosis (manual) APTT Puncture Site Rb pCO2 48 H pO2 63 L HCO3 16.9 L ABG pH 7.19 L* ABG Total CO2 19.8 L ABG O2 Saturation 91.2 L ABG Base Excess -9.9 L Danny Test Na ABG Potassium 5.4 H A-a O2 Difference 234.0 Respiratory Index 3.7 Glucose 129 H Lactate 1.6 Vent Mode Prvc Mechanical Rate 12 FiO2 50.0 Tidal Volume 500 PEEP 5 Crit Value Called To Arcenio allen/rn Crit Value Called By Jacob petersen/rt Crit Value Read Back Y Blood Gas Notified Time 430 Sodium 141.0 Potassium Chloride 115.0 H Carbon Dioxide Anion Gap BUN Creatinine Est GFR ( Amer) Est GFR (Non-Af Amer) POC Glucose (mg/dL) 140 H Random Glucose Calcium Phosphorus Magnesium Total Bilirubin AST ALT Alkaline Phosphatase Total Protein Albumin Globulin Albumin/Globulin Ratio Arterial Blood Potassium 5.4 H Random Vancomycin 08/13/18 08/13/18 08/13/18 06:06 06:06 06:06 WBC RBC Hgb Hct MCV MCH MCHC RDW Plt Count MPV Neut % (Auto) Lymph % (Auto) [place] % (Auto) Eos % (Auto) Baso % (Auto) Neut # (Auto) Lymph # (Auto) [place] # (Auto) Eos # (Auto) Baso # (Auto) Neutrophils % (Manual) Band Neutrophils % Lymphocytes % (Manual) Monocytes % (Manual) Platelet Estimate RBC Morphology Hypochromasia (manual) Poikilocytosis (manual Anisocytosis (manual) APTT 75 H D Puncture Site pCO2 pO2 HCO3 ABG pH ABG Total CO2 ABG O2 Saturation ABG Base Excess Danny Test ABG Potassium A-a O2 Difference Respiratory Index Glucose Lactate Vent Mode Mechanical Rate FiO2 Tidal Volume PEEP Crit Value Called To Crit Value Called By Crit Value Read Back Blood Gas Notified Time Sodium 141 Potassium 4.8 Chloride 112 H Carbon Dioxide 20 L Anion Gap 14 BUN 28 H Creatinine 1.5 Est GFR ( Amer) 54 Est GFR (Non-Af Amer) 45 POC Glucose (mg/dL) Random Glucose 131 H Calcium 7.0 L Phosphorus 5.2 H Magnesium 1.7 Total Bilirubin 0.4 AST 86 H ALT 59 Alkaline Phosphatase 57 Total Protein 6.3 Albumin 3.3 L Globulin 3.0 Albumin/Globulin Ratio 1.1 Arterial Blood Potassium Random Vancomycin 10.1 08/13/18 08/13/18 08/13/18 06:13 06:53 07:50 WBC RBC Hgb Hct MCV MCH MCHC RDW Plt Count MPV Neut % (Auto) Lymph % (Auto) [place] % (Auto) Eos % (Auto) Baso % (Auto) Neut # (Auto) Lymph # (Auto) [place] # (Auto) Eos # (Auto) Baso # (Auto) Neutrophils % (Manual) Band Neutrophils % Lymphocytes % (Manual) Monocytes % (Manual) Platelet Estimate RBC Morphology Hypochromasia (manual) Poikilocytosis (manual Anisocytosis (manual) APTT Puncture Site pCO2 pO2 HCO3 ABG pH ABG Total CO2 ABG O2 Saturation ABG Base Excess Danny Test ABG Potassium A-a O2 Difference Respiratory Index Glucose Lactate Vent Mode Mechanical Rate FiO2 Tidal Volume PEEP Crit Value Called To Crit Value Called By Crit Value Read Back Blood Gas Notified Time Sodium Potassium Chloride Carbon Dioxide Anion Gap BUN Creatinine Est GFR ( Amer) Est GFR (Non-Af Amer) POC Glucose (mg/dL) 130 H 101 155 H Random Glucose Calcium Phosphorus Magnesium Total Bilirubin AST ALT Alkaline Phosphatase Total Protein Albumin Globulin Albumin/Globulin Ratio Arterial Blood Potassium Random Vancomycin 08/13/18 08/13/18 08/13/18 09:05 10:24 10:57 WBC RBC Hgb Hct MCV MCH MCHC RDW Plt Count MPV Neut % (Auto) Lymph % (Auto) [place] % (Auto) Eos % (Auto) Baso % (Auto) Neut # (Auto) Lymph # (Auto) [place] # (Auto) Eos # (Auto) Baso # (Auto) Neutrophils % (Manual) Band Neutrophils % Lymphocytes % (Manual) Monocytes % (Manual) Platelet Estimate RBC Morphology Hypochromasia (manual) Poikilocytosis (manual Anisocytosis (manual) APTT Puncture Site pCO2 pO2 HCO3 ABG pH ABG Total CO2 ABG O2 Saturation ABG Base Excess Danny Test ABG Potassium A-a O2 Difference Respiratory Index Glucose Lactate Vent Mode Mechanical Rate FiO2 Tidal Volume PEEP Crit Value Called To Crit Value Called By Crit Value Read Back Blood Gas Notified Time Sodium Potassium Chloride Carbon Dioxide Anion Gap BUN Creatinine Est GFR ( Amer) Est GFR (Non-Af Amer) POC Glucose (mg/dL) 141 H 165 H 163 H Random Glucose Calcium Phosphorus Magnesium Total Bilirubin AST ALT Alkaline Phosphatase Total Protein Albumin Globulin Albumin/Globulin Ratio Arterial Blood Potassium Random Vancomycin 08/13/18 08/13/18 08/13/18 12:01 13:35 13:35 WBC 11.4 H RBC 3.06 L Hgb 9.4 L Hct 28.0 L MCV 91.5 MCH 30.7 MCHC 33.5 RDW 14.4 Plt Count 159 MPV 8.2 Neut % (Auto) 84.8 H Lymph % (Auto) 7.6 L [place] % (Auto) 7.2 Eos % (Auto) 0.1 Baso % (Auto) 0.3 Neut # (Auto) 9.7 H Lymph # (Auto) 0.9 L [place] # (Auto) 0.8 Eos # (Auto) 0.0 Baso # (Auto) 0.0 Neutrophils % (Manual) 87 H Band Neutrophils % 2 Lymphocytes % (Manual) 5 L Monocytes % (Manual) 6 Platelet Estimate Normal RBC Morphology Hypochromasia (manual) Slight Poikilocytosis (manual Slight Anisocytosis (manual) Slight APTT Puncture Site pCO2 pO2 HCO3 ABG pH ABG Total CO2 ABG O2 Saturation ABG Base Excess Danny Test ABG Potassium A-a O2 Difference Respiratory Index Glucose Lactate Vent Mode Mechanical Rate FiO2 Tidal Volume PEEP Crit Value Called To Crit Value Called By Crit Value Read Back Blood Gas Notified Time Sodium 136 Potassium 3.8 Chloride 109 H Carbon Dioxide 21 L Anion Gap 11 BUN 30 H Creatinine 1.5 Est GFR ( Amer) 54 Est GFR (Non-Af Amer) 45 POC Glucose (mg/dL) 178 H Random Glucose 170 H D Calcium 6.8 L Phosphorus 3.0 Magnesium 1.6 Total Bilirubin 0.5 AST 64 H D ALT 49 Alkaline Phosphatase 45 Total Protein 5.4 L Albumin 2.7 L Globulin 2.7 Albumin/Globulin Ratio 1.0 Arterial Blood Potassium Random Vancomycin 08/13/18 13:35 WBC RBC Hgb Hct MCV MCH MCHC RDW Plt Count MPV Neut % (Auto) Lymph % (Auto) [place] % (Auto) Eos % (Auto) Baso % (Auto) Neut # (Auto) Lymph # (Auto) [place] # (Auto) Eos # (Auto) Baso # (Auto) Neutrophils % (Manual) Band Neutrophils % Lymphocytes % (Manual) Monocytes % (Manual) Platelet Estimate RBC Morphology Hypochromasia (manual) Poikilocytosis (manual Anisocytosis (manual) APTT 51 H D Puncture Site pCO2 pO2 HCO3 ABG pH ABG Total CO2 ABG O2 Saturation ABG Base Excess Danny Test ABG Potassium A-a O2 Difference Respiratory Index Glucose Lactate Vent Mode Mechanical Rate FiO2 Tidal Volume PEEP Crit Value Called To Crit Value Called By Crit Value Read Back Blood Gas Notified Time Sodium Potassium Chloride Carbon Dioxide Anion Gap BUN Creatinine Est GFR ( Amer) Est GFR (Non-Af Amer) POC Glucose (mg/dL) Random Glucose Calcium Phosphorus Magnesium Total Bilirubin AST ALT Alkaline Phosphatase Total Protein Albumin Globulin Albumin/Globulin Ratio Arterial Blood Potassium Random Vancomycin Radiology Impressions: Radiology Impressions Chest X-Ray 08/13/18 07:00 IMPRESSION: Interval mild improved aeration in the lungs with residual pulmonary edema, worse on the left. Stable position of support line and tubes. Attending/Attestation - Attestation I have personally seen and examined this patient.: Yes I have fully participated in the care of the patient.: Yes I have reviewed all pertinent clinical information: Yes Notes (Text): 08/13/18 16:15 Patient seen and examined in the intensive care unit. Case discussed with house staff in the morning rounds. Status post "freeze No response to tactile stimuli Neuro evaluation On IV heparin Hypotensive during the rewarming stage of therapeutic hypothermia Start Levophed Continue present treatment for now Prognosis poor
[2018-08-13] MEDS: Sodium Bicarbonate 8.4% 150 MEQ in Dextrose 5% In Water 1,000 ML IV SCH ×2 (08:25→22:55)
--- NOTE | 2018-08-13 08:27 | RAD ---
Date of service: 08/13/2018 HISTORY: pulmonary edema COMPARISON: 08/12/2018. FINDINGS: The endotracheal tube terminates in the mid trachea. The nasogastric tube terminates in the stomach. The left IJV line terminates in the SVC. LUNGS: There is interval improved aeration in the lungs with residual extensive patchy airspace disease predominantly in the right perihilar region and almost entirely involving the left. PLEURA: No pleural effusions or pneumothorax. CARDIOVASCULAR: Stable mild cardiomegaly. There are aortic atherosclerotic calcifications present. OSSEOUS STRUCTURES: Within normal limits for the patient's age. VISUALIZED UPPER ABDOMEN: Normal. OTHER FINDINGS: None. IMPRESSION: Interval mild improved aeration in the lungs with residual pulmonary edema, worse on the left. Stable position of support line and tubes.
[2018-08-13 08:34] LABS: LYMPHOCYTE 6 % (20-40); MONOCYTE 6 % (0-10); NEUTROPHIL 88 % (50-75); PLATELET ESTIMATE NORMAL (NORMAL); TOTAL CELLS COUNTED 100
[2018-08-13] MEDS ORDERED: DOBUTamine 500mg/250ml D5W 500 MG/250 ML BAG IV PRN (09:15)
[2018-08-13] MEDS ORDERED: Digoxin 250 mcg (0.25 mg) Tab PO STA (09:26)
[2018-08-13 11:21] VITALS: PULSE 97
[2018-08-13 13:40] LABS: BASO % 0.3 % (0.0-2.0); EOS % 0.1 % (0.0-4.0); HEMOGLOBIN 9.4 g/dL (12.0-18.0); LYMPH # 0.9 K/uL (1.0-4.3); LYMPH % 7.6 % (20.0-40.0); MEAN CELL VOLUME 91.5 fL (80.0-94.0); MEAN CORPUSCULAR HEMOGLOBIN 30.7 pg (27.0-31.0); MEAN CORPUSCULAR HGB CONC 33.5 g/dL (33.0-37.0); MEAN PLATELET VOLUME 8.2 fL (7.2-11.7); MONO # 0.8 K/uL (0.0-0.8); MONO % 7.2 % (0.0-10.0); NEUT # 9.7 K/uL (1.8-7.0); NEUT % 84.8 % (50.0-75.0); PLATELET COUNT 159 K/uL (130-400); RBC 3.06 Mil/uL (4.40-5.90); RED CELL DISTRIBUTION WIDTH 14.4 % (11.5-14.5); WHITE BLOOD COUNT 11.4 K/uL (4.8-10.8)
[2018-08-13 13:57] LABS: ALBUMIN 2.7 g/dL (3.5-5.0); CALCIUM 6.8 mg/dl (8.6-10.4)
[2018-08-13 14:02] LABS: ANISOCYTOSIS SLIGHT; BANDS 2 % (0-2); HYPOCHROMIC SLIGHT; LYMPHOCYTE 5 % (20-40); MONOCYTE 6 % (0-10); NEUTROPHIL 87 % (50-75); PLATELET ESTIMATE NORMAL (NORMAL); POIKILOCYTOSIS SLIGHT; TOTAL CELLS COUNTED 100
--- NOTE | 2018-08-13 16:04 | CP.PCM.PN ---
Subjective - Date & Time of Evaluation Date of Evaluation: 08/13/18 Time of Evaluation: 16:04 - Subjective Subjective: Patient seen and examined No events overnight Objective - Vital Signs/Intake and Output Vital Signs (last 24 hours): Temp Pulse Resp BP Pulse Ox 99.0 F 102 H 16 109/84 100 08/13/18 13:43 08/13/18 11:00 08/13/18 11:00 08/13/18 11:00 08/13/18 10:42 Intake and Output: 08/13/18 08/13/18 06:59 18:59 Intake Total 2285.9 977.6 Output Total 1995 420 Balance 290.9 557.6 - Medications Medications: Current Medications Acetaminophen (Tylenol 650mg/20.3ml Solution Ud) 975 mg PO Q6H PRN PRN Reason: shivering Last Admin: 08/13/18 13:43 Dose: 975 mg Dextrose (Dextrose 50% Inj) 0 ml IV STAT PRN; Protocol PRN Reason: Hypoglycemia Protocol Dextrose (Glutose 15) 0 gm PO ONCE PRN; Protocol PRN Reason: Hypoglycemia Protocol Glucagon (Glucagen Diagnostic Kit) 0 mg IM STAT PRN; Protocol PRN Reason: Hypoglycemia Protocol Dextrose (Dextrose 5% In Water 1000 Ml) 1,000 mls @ 0 mls/hr IV .Q0M PRN; Protocol PRN Reason: Hypoglycemia Protocol Heparin Sodium/Sodium Chloride (Heparin 87266 Units/250ml 1/2 Normal Saline) 25,000 units in 250 mls @ 8.165 mls/hr IV .Q24H PRN; Protocol PRN Reason: ADJUST RATE PER PROTOCOL Last Titration: 08/12/18 23:30 Dose: 6 units/kg/hr, 4.082 mls/hr Propofol (Diprivan) 1,000 mg in 100 mls @ 2.041 mls/hr IV .Q24H PRN; Protocol PRN Reason: TITRATE PER MD ORDER Last Admin: 08/13/18 13:51 Dose: 60 mcg/kg/min, 24.494 mls/hr Midazolam HCl 100 mg/ Sodium (Chloride) 100 mls @ 1.36 mls/hr IV .Q24H [facility]; Protocol Last Admin: 08/12/18 21:10 Dose: Not Given Piperacillin Sod/Tazobactam (Sod 3.375 gm/ Sodium Chloride) 100 mls @ 200 mls/hr IVPB Q8H [facility]; Protocol Last Admin: 08/13/18 09:24 Dose: 200 mls/hr Sodium Bicarbonate 150 meq/ (Dextrose) 1,150 mls @ 50 mls/hr IV .Q23H [facility] Last Admin: 08/13/18 08:25 Dose: 50 mls/hr Norepinephrine Bitartrate 4 mg (/ Dextrose) 254 mls @ 15.24 mls/hr IV .[id number] PRN; Protocol PRN Reason: TITRATE PER MD ORDER Insulin Human Regular (Novolin R) 0 unit SC ACHS [facility]; Protocol Last Admin: 08/13/18 11:30 Dose: Not Given Metoprolol Tartrate (Lopressor) 50 mg PO BID [facility] Last Admin: 08/13/18 09:26 Dose: Not Given Pantoprazole Sodium (Protonix Inj) 40 mg IVP DAILY [facility] Last Admin: 08/13/18 09:25 Dose: 40 mg - Labs Labs: 08/13/18 13:35 08/13/18 13:35 PT 16.8 SECONDS (9.7-12.2) H 08/12/18 13:37 INR 1.5 08/12/18 13:37 APTT 51 SECONDS (21-34) H D 08/13/18 13:35 - Head Exam Head Exam: NORMAL INSPECTION - Eye Exam Eye Exam: Normal appearance - ENT Exam ENT Exam: Mucous Membranes Moist - Respiratory Exam Respiratory Exam: Rales, Rhonchi - Cardiovascular Exam Cardiovascular Exam: REGULAR RHYTHM, +S1, +S2 - GI/Abdominal Exam GI & Abdominal Exam: Soft, Normal Bowel Sounds Assessment and Plan (1) Cardiac arrest Status: Acute (2) Respiratory arrest Status: Acute (3) Congestive heart failure Status: Acute - Assessment and Plan (Free Text) Plan: Continue full vent support Will observe closely for signs of anoxic brain injury Diuresis Antibiotics Follow cultures Start NG tube feeds DVT/GI prophalaxis
[2018-08-13] MEDS: Heparin25000 units/250ml 1/2NS 25,000 UNITS/250 ML BAG IV PRN (18:28)
--- NOTE | 2018-08-13 19:48 | CP.PCM.PN ---
Subjective - Date & Time of Evaluation Date of Evaluation: 08/13/18 Time of Evaluation: 16:00 - Subjective Subjective: dictated Objective - Vital Signs/Intake and Output Vital Signs (last 24 hours): Temp Pulse Resp BP Pulse Ox 98.8 F 102 H 16 109/84 100 08/13/18 14:43 08/13/18 11:00 08/13/18 11:00 08/13/18 11:00 08/13/18 10:42 Intake and Output: 08/13/18 08/14/18 18:59 06:59 Intake Total 1884.8 Output Total 900 Balance 984.8 - Medications Medications: Current Medications Acetaminophen (Tylenol 650mg/20.3ml Solution Ud) 975 mg PO Q6H PRN PRN Reason: shivering Last Admin: 08/13/18 13:43 Dose: 975 mg Dextrose (Dextrose 50% Inj) 0 ml IV STAT PRN; Protocol PRN Reason: Hypoglycemia Protocol Dextrose (Glutose 15) 0 gm PO ONCE PRN; Protocol PRN Reason: Hypoglycemia Protocol Glucagon (Glucagen Diagnostic Kit) 0 mg IM STAT PRN; Protocol PRN Reason: Hypoglycemia Protocol Dextrose (Dextrose 5% In Water 1000 Ml) 1,000 mls @ 0 mls/hr IV .Q0M PRN; Protocol PRN Reason: Hypoglycemia Protocol Heparin Sodium/Sodium Chloride (Heparin 41536 Units/250ml 1/2 Normal Saline) 25,000 units in 250 mls @ 8.165 mls/hr IV .Q24H PRN; Protocol PRN Reason: ADJUST RATE PER PROTOCOL Last Admin: 08/13/18 18:28 Dose: 6 units/kg/hr, 4.082 mls/hr Propofol (Diprivan) 1,000 mg in 100 mls @ 2.041 mls/hr IV .Q24H PRN; Protocol PRN Reason: TITRATE PER MD ORDER Last Admin: 08/13/18 18:40 Dose: 60 mcg/kg/min, 24.494 mls/hr Midazolam HCl 100 mg/ Sodium (Chloride) 100 mls @ 1.36 mls/hr IV .Q24H [facility]; Protocol Last Admin: 08/12/18 21:10 Dose: Not Given Piperacillin Sod/Tazobactam (Sod 3.375 gm/ Sodium Chloride) 100 mls @ 200 mls/hr IVPB Q8H [facility]; Protocol Last Admin: 08/13/18 17:43 Dose: 200 mls/hr Sodium Bicarbonate 150 meq/ (Dextrose) 1,150 mls @ 50 mls/hr IV .Q23H [facility] Last Admin: 08/13/18 08:25 Dose: 50 mls/hr Norepinephrine Bitartrate 4 mg (/ Dextrose) 254 mls @ 15.24 mls/hr IV .[id number] PRN; Protocol PRN Reason: TITRATE PER MD ORDER Insulin Human Regular (Novolin R) 0 unit SC ACHS [facility]; Protocol Last Admin: 08/13/18 16:30 Dose: Not Given Pantoprazole Sodium (Protonix Inj) 40 mg IVP DAILY [facility] Last Admin: 08/13/18 09:25 Dose: 40 mg - Labs Labs: 08/13/18 13:35 08/13/18 13:35 PT 16.8 SECONDS (9.7-12.2) H 08/12/18 13:37 INR 1.5 08/12/18 13:37 APTT 51 SECONDS (21-34) H D 08/13/18 13:35
[2018-08-13] MEDS: Midazolam 50 mg/10 ml 100 MG in Sodium Chloride 0.9% 80 ML IV SCH (21:08)
--- NOTE | 2018-08-13 21:19 | CP.PCM.PN ---
Subjective - Date & Time of Evaluation Date of Evaluation: 08/13/18 Time of Evaluation: 11:30 - Subjective Subjective: clinically same Objective - Vital Signs/Intake and Output Vital Signs (last 24 hours): Temp Pulse Resp BP Pulse Ox 99.2 F 104 H 17 104/68 100 08/13/18 20:00 08/13/18 20:00 08/13/18 20:00 08/13/18 19:58 08/13/18 20:00 Intake and Output: 08/13/18 08/14/18 18:59 06:59 Intake Total 2109.3 265.3 Output Total 980 200 Balance 1129.3 65.3 - Medications Medications: Current Medications Acetaminophen (Tylenol 650mg/20.3ml Solution Ud) 975 mg PO Q6H PRN PRN Reason: shivering Last Admin: 08/13/18 13:43 Dose: 975 mg Dextrose (Dextrose 50% Inj) 0 ml IV STAT PRN; Protocol PRN Reason: Hypoglycemia Protocol Dextrose (Glutose 15) 0 gm PO ONCE PRN; Protocol PRN Reason: Hypoglycemia Protocol Glucagon (Glucagen Diagnostic Kit) 0 mg IM STAT PRN; Protocol PRN Reason: Hypoglycemia Protocol Dextrose (Dextrose 5% In Water 1000 Ml) 1,000 mls @ 0 mls/hr IV .Q0M PRN; Protocol PRN Reason: Hypoglycemia Protocol Heparin Sodium/Sodium Chloride (Heparin 43704 Units/250ml 1/2 Normal Saline) 25,000 units in 250 mls @ 8.165 mls/hr IV .Q24H PRN; Protocol PRN Reason: ADJUST RATE PER PROTOCOL Last Admin: 08/13/18 18:28 Dose: 6 units/kg/hr, 4.082 mls/hr Propofol (Diprivan) 1,000 mg in 100 mls @ 2.041 mls/hr IV .Q24H PRN; Protocol PRN Reason: TITRATE PER MD ORDER Last Titration: 08/13/18 20:00 Dose: 30 mcg/kg/min, 12.247 mls/hr Midazolam HCl 100 mg/ Sodium (Chloride) 100 mls @ 1.36 mls/hr IV .Q24H [facility]; Protocol Last Admin: 08/13/18 21:08 Dose: Not Given Piperacillin Sod/Tazobactam (Sod 3.375 gm/ Sodium Chloride) 100 mls @ 200 mls/hr IVPB Q8H [facility]; Protocol Last Admin: 08/13/18 17:43 Dose: 200 mls/hr Sodium Bicarbonate 150 meq/ (Dextrose) 1,150 mls @ 50 mls/hr IV .Q23H [facility]ESSE Last Admin: 08/13/18 08:25 Dose: 50 mls/hr Norepinephrine Bitartrate 4 mg (/ Dextrose) 254 mls @ 15.24 mls/hr IV .[id number] PRN; Protocol PRN Reason: TITRATE PER MD ORDER Insulin Human Regular (Novolin R) 0 unit SC ACHS [facility]; Protocol Last Admin: 08/13/18 16:30 Dose: Not Given Pantoprazole Sodium (Protonix Inj) 40 mg IVP DAILY [facility] Last Admin: 08/13/18 09:25 Dose: 40 mg - Labs Labs: 08/13/18 13:35 08/13/18 13:35 PT 16.8 SECONDS (9.7-12.2) H 08/12/18 13:37 INR 1.5 08/12/18 13:37 APTT 51 SECONDS (21-34) H D 08/13/18 13:35
--- NOTE | 2018-08-13 23:26 | PN ---
DATE: 08/13/2018 INFECTIOUS DISEASE FOLLOWUP NOTE SUBJECTIVE: The patient remains intubated, sedated. His T-max is 99 right now. He was on hypothermic blanket yesterday, but now he is off it and it was for 24 hours. PHYSICAL EXAMINATION: VITAL SIGNS: Heart rate is 102, blood pressure is 109/84, respirations are 16. He remains on vent. His baseline is atrial fib. HEENT: His pupils were pinpoint yesterday, but his eyes are closed right now. NECK: Supple. LUNGS: Clear. Occasional rhonchi. HEART: S1, S2 irregularly irregular. ABDOMEN: Soft, nontender. No guarding, no rigidity present. EXTREMITIES: No edema. White count is 11.4 today, hemoglobin 9.4, hematocrit 28, platelet count is 159. His ABG yesterday was 7.19. Pulmonary is following. BUN is 30, creatinine is 1.5, remains elevated. His random level is 10.1, we will hold off on the vancomycin. It looks like he has more cardiac issues, having cardiac arrhythmias. He has a defibrillator also on his chest wall. Micro culture, blood cultures have been negative. MRSA negative. Urine culture negative. Sputum is pending. Chest x-ray shows interval mild improved aeration in the lungs with residual pulmonary edema, worse on the left. ASSESSMENT AND PLAN: At this time, he came in with cardiac arrhythmias, cardiac arrest, status post respiratory failure. Had increased white count, possible aspiration. He has pulmonary edema. Suggest at this time to continue Zosyn and to follow up the sputum culture when it comes back. Shilpa Sandoval MD
[2018-08-14] MEDS: Piperacillin/Tazobact 3.375 GM in Sodium Chloride 100 ML IVPB SCH ×3 (02:29→17:20)
[2018-08-14] MEDS: Propofol 10 mg/ml 1,000 MG/100 ML VIAL IV PRN ×2 (03:56→20:10)
[2018-08-14 04:55] LABS: ARTERIAL BLOOD GAS HCO3 27.2 mmol/L (21-28); ARTERIAL BLOOD GAS O2 SAT 93.8 % (95-98); ARTERIAL BLOOD GAS PCO2 30 mm/Hg (35-45); ARTERIAL BLOOD GAS PH 7.53 (7.35-7.45); ARTERIAL BLOOD GAS PO2 54 mm/Hg (80-100)
[2018-08-14] MEDS: Sodium Bicarbonate 8.4% 150 MEQ in Dextrose 5% In Water 1,000 ML IV SCH (05:04)
[2018-08-14 05:55] LABS: BASO % 0.2 % (0.0-2.0); EOS % 0.3 % (0.0-4.0); HEMOGLOBIN 9.2 g/dL (12.0-18.0); LYMPH # 1.8 K/uL (1.0-4.3); LYMPH % 18.3 % (20.0-40.0); MEAN CELL VOLUME 89.9 fL (80.0-94.0); MEAN CORPUSCULAR HEMOGLOBIN 29.9 pg (27.0-31.0); MEAN CORPUSCULAR HGB CONC 33.3 g/dL (33.0-37.0); MEAN PLATELET VOLUME 8.3 fL (7.2-11.7); MONO # 0.7 K/uL (0.0-0.8); MONO % 7.6 % (0.0-10.0); NEUT # 7.2 K/uL (1.8-7.0); NEUT % 73.6 % (50.0-75.0); RBC 3.07 Mil/uL (4.40-5.90); RED CELL DISTRIBUTION WIDTH 14.6 % (11.5-14.5); WHITE BLOOD COUNT 9.8 K/uL (4.8-10.8)
[2018-08-14] MEDS: (Novolin R) Insulin Human Regular 100 units/ml vial SC SCH ×4 (06:00→19:15)
[2018-08-14 06:24] LABS: ALBUMIN 2.7 g/dL (3.5-5.0); CALCIUM 6.9 mg/dl (8.6-10.4)
[2018-08-14] MEDS ORDERED: Potassium Chloride 20 mEq/15 ml LIQ UD PO ONE (09:43)
--- NOTE | 2018-08-14 09:43 | CP.CCUPN ---
CCU Subjective - Physician Review Events Since Last Encounter (Free Text): 08/14/18 09:43 Patient is an 83-year-old male admitted to the hospital following a cardiac arrest. Following the cardiac arrest the patient was intubated and brought to the intensive care unit therapeutic hypothermia was administered. Patient now on ventilator. Currently sedated. But he is looks like appropriately responding at this time. He is following simple commands. On ventilator. At ventilation. Chest good air entry. No wheezing or rales noted. Edema 1+ in the legs noted. Labs reviewed CBC nonspecific blood gas analysis showing improvement chemistry mild elevation of the creatinine level noted chest x-ray pulmonary edema pattern noted, possible pneumonitis Medications reviewed Assessment and recommendation: 89-year-old male admitted following a cardiac arrest. Underlying anoxia cannot be ruled out, but will do the weaning protocol. Reduce sedation. Neurological check. Repeat CAT scan. Continue the ventilator. Antibiotic and respiratory support. DVT and GI prophylaxis Critical Care Time Spent (in minutes): 45 CCU Objective - Vital Signs / Intake & Output Vital Signs (Last 4 hours): Vital Signs Pulse Resp BP Pulse Ox 08/14/18 09:00 102 H 20 100 08/14/18 08:59 104 H 19 130/75 98 08/14/18 08:00 95 H 18 100 08/14/18 07:59 100 H 17 136/75 100 08/14/18 07:00 100 H 19 100 08/14/18 06:59 103 H 19 137/69 99 08/14/18 06:30 100 H 17 100 08/14/18 06:14 98 H 16 135/79 100 08/14/18 06:00 106 H 10 L 100 Intake and Output (Last 8hrs): Intake & Output 08/13/18 08/14/18 08/14/18 22:59 06:59 14:59 Intake Total 1079.6 573.8 287.3 Output Total 660 670 135 Balance 419.6 -96.2 152.3 Weight 170 lb Intake: IV 200 50 Intake, IV Amount 879.6 523.8 287.3 Left Hand 32.8 32.8 12.3 Lt IJ TLC Medial Port 600 400 150 Lt IJ TLC Distal Port 146.8 91.0 25 Lt IJ TLC Proximal Port 100 100 Output: Urine 660 670 135 Urethral (Vill[place]) 660 670 135 - Physical Exam Head: Positive for: Other (brusing with ecchymosis of left eye) Mouth: Positive for: Moist Mucous Membranes, Other (ET tube in place) Respiratory/Chest: Positive for: Good Air Exchange Cardiovascular: Positive for: Normal S1, S2, Irregular Rhythm, Tachycardic. Negative for: Regular Rate and Rhythm Abdomen: Negative for: Tenderness, Distention Upper Extremity: Positive for: Normal Inspection. 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 Negative for: Edema Neurological: Negative for: GCS=15 Skin: Positive for: Dry, Normal Color. Negative for: Warm Psychiatric: Negative for: Alert, Oriented x 3 - Medications Active Medications: Active Medications Generic Name Dose Route Start Last Admin Trade Name Freq PRN Reason Stop Dose Admin Acetaminophen 975 mg 08/12/18 11:22 08/13/18 13:43 Tylenol 650mg/20.3ml Solution Ud PO 975 mg Q6H PRN Administration shivering Heparin Sodium/Sodium Chloride 25,000 units in 250 mls @ 8.165 mls/hr 08/11/18 17:33 08/13/18 18:28 Heparin 15063 Units/250ml 1/2 Normal Saline IV 6 units/kg/hr .Q24H PRN 4.082 mls/hr ADJUST RATE PER PROTOCOL Administration Protocol 12 UNITS/KG/HR Propofol 1,000 mg in 100 mls @ 2.041 mls/hr 08/11/18 19:35 08/14/18 03:56 Diprivan IV 24.49 mcg/kg/min .Q24H PRN 10 mls/hr TITRATE PER MD ORDER Administration Protocol 5 MCG/KG/MIN Piperacillin Sod/Tazobactam 100 mls @ 200 mls/hr 08/12/18 18:00 08/14/18 09:15 Sod 3.375 gm/ Sodium Chloride IVPB 200 mls/hr Q8H JESSE Administration Protocol Insulin Human Regular 0 unit 08/14/18 00:00 08/14/18 06:00 Novolin R SC Not Given Q6H JESSE Protocol Pantoprazole Sodium 40 mg 08/11/18 15:30 08/14/18 09:15 Protonix Inj IVP 40 mg DAILY JESSE Administration - Patient Studies Lab Studies: Microbiology Studies 08/12/18 09:24 MRSA Culture (Admit) - Final Naris MRSA NOT DETECTED 08/12/18 10:00 Blood Culture - Preliminary Blood-Venous NO GROWTH AFTER 24 HOURS 08/12/18 10:30 Blood Culture - Preliminary Blood-Venous NO GROWTH AFTER 24 HOURS Lab Studies 08/14/18 08/14/18 08/14/18 Range/Units 05:49 05:49 05:49 WBC 9.8 (4.8-10.8) K/uL RBC 3.07 L (4.40-5.90) Mil/uL Hgb 9.2 L (12.0-18.0) g/dL Hct 27.6 L (35.0-51.0) % MCV 89.9 (80.0-94.0) fL MCH 29.9 (27.0-31.0) pg MCHC 33.3 (33.0-37.0) g/dL RDW 14.6 H (11.5-14.5) % Plt Count 149 (130-400) K/uL MPV 8.3 (7.2-11.7) fL Neut % (Auto) 73.6 (50.0-75.0) % Lymph % (Auto) 18.3 L (20.0-40.0) % Orange % (Auto) 7.6 (0.0-10.0) % Eos % (Auto) 0.3 (0.0-4.0) % Baso % (Auto) 0.2 (0.0-2.0) % Neut # (Auto) 7.2 H (1.8-7.0) K/uL Lymph # (Auto) 1.8 (1.0-4.3) K/uL Orange # (Auto) 0.7 (0.0-0.8) K/uL Eos # (Auto) 0.0 (0.0-0.7) K/uL Baso # (Auto) 0.0 (0.0-0.2) K/uL Neutrophils % (Manual) (50-75) % Band Neutrophils % (0-2) % Lymphocytes % (Manual) (20-40) % Monocytes % (Manual) (0-10) % Platelet Estimate (NORMAL) Hypochromasia (manual) Poikilocytosis (manual Anisocytosis (manual) APTT 38 H D (21-34) SECONDS Puncture Site pCO2 (35-45) mm/Hg pO2 (80-100) mm/Hg HCO3 (21-28) mmol/L ABG pH (7.35-7.45) ABG Total CO2 (22-28) mmol/L ABG O2 Saturation (95-98) % ABG Base Excess (-2.0-3.0) mmol/L Danny Test ABG Potassium (3.6-5.2) mmol/L A-a O2 Difference mm/Hg Respiratory Index Glucose (75-110) mg/dl Lactate (0.7-2.1) mmol/L Vent Mode Mechanical Rate FiO2 % Tidal Volume PEEP Sodium 139 (132-148) mmol/L Potassium 3.2 L (3.6-5.2) mmol/L Chloride 108 H (98-107) mmol/L Carbon Dioxide 26 (22-30) mmol/L Anion Gap 8 L (10-20) BUN 25 H (9-20) mg/dL Creatinine 1.6 H (0.8-1.5) mg/dL Est GFR ( Amer) 50 Est GFR (Non-Af Amer) 42 POC Glucose (mg/dL) (65-110) mg/dL Random Glucose 131 H D (75-110) mg/dL Calcium 6.9 L (8.6-10.4) mg/dl Phosphorus 2.4 L (2.5-4.5) mg/dL Magnesium 1.8 (1.6-2.3) mg/dL Total Bilirubin 0.4 (0.2-1.3) mg/dL AST 54 (17-59) U/L ALT 41 (21-72) U/L Alkaline Phosphatase 48 (38-126) U/L Total Protein 5.4 L (6.3-8.3) g/dL Albumin 2.7 L (3.5-5.0) g/dL Globulin 2.7 (2.2-3.9) gm/dL Albumin/Globulin Ratio 1.0 (1.0-2.1) Arterial Blood Potassium (3.6-5.2) mmol/L 08/14/18 08/14/18 08/14/18 Range/Units 05:22 04:40 00:05 WBC (4.8-10.8) K/uL RBC (4.40-5.90) Mil/uL Hgb (12.0-18.0) g/dL Hct (35.0-51.0) % MCV (80.0-94.0) fL MCH (27.0-31.0) pg MCHC (33.0-37.0) g/dL RDW (11.5-14.5) % Plt Count (130-400) K/uL MPV (7.2-11.7) fL Neut % (Auto) (50.0-75.0) % Lymph % (Auto) (20.0-40.0) % Orange % (Auto) (0.0-10.0) % Eos % (Auto) (0.0-4.0) % Baso % (Auto) (0.0-2.0) % Neut # (Auto) (1.8-7.0) K/uL Lymph # (Auto) (1.0-4.3) K/uL Orange # (Auto) (0.0-0.8) K/uL Eos # (Auto) (0.0-0.7) K/uL Baso # (Auto) (0.0-0.2) K/uL Neutrophils % (Manual) (50-75) % Band Neutrophils % (0-2) % Lymphocytes % (Manual) (20-40) % Monocytes % (Manual) (0-10) % Platelet Estimate (NORMAL) Hypochromasia (manual) Poikilocytosis (manual Anisocytosis (manual) APTT (21-34) SECONDS Puncture Site Rb pCO2 30 L (35-45) mm/Hg pO2 54 L (80-100) mm/Hg HCO3 27.2 (21-28) mmol/L ABG pH 7.53 H (7.35-7.45) ABG Total CO2 26.0 (22-28) mmol/L ABG O2 Saturation 93.8 L (95-98) % ABG Base Excess 3.1 H (-2.0-3.0) mmol/L Danny Test Na ABG Potassium 3.3 L (3.6-5.2) mmol/L A-a O2 Difference 265.0 mm/Hg Respiratory Index 4.9 Glucose 125 H (75-110) mg/dl Lactate 1.4 (0.7-2.1) mmol/L Vent Mode Prvc Mechanical Rate 16 FiO2 50.0 % Tidal Volume 500 PEEP 5 Sodium 144.0 (132-148) mmol/L Potassium (3.6-5.2) mmol/L Chloride 113.0 H (98-107) mmol/L Carbon Dioxide (22-30) mmol/L Anion Gap (10-20) BUN (9-20) mg/dL Creatinine (0.8-1.5) mg/dL Est GFR ( Amer) Est GFR (Non-Af Amer) POC Glucose (mg/dL) 152 H 141 H (65-110) mg/dL Random Glucose (75-110) mg/dL Calcium (8.6-10.4) mg/dl Phosphorus (2.5-4.5) mg/dL Magnesium (1.6-2.3) mg/dL Total Bilirubin (0.2-1.3) mg/dL AST (17-59) U/L ALT (21-72) U/L Alkaline Phosphatase (38-126) U/L Total Protein (6.3-8.3) g/dL Albumin (3.5-5.0) g/dL Globulin (2.2-3.9) gm/dL Albumin/Globulin Ratio (1.0-2.1) Arterial Blood Potassium 3.3 L (3.6-5.2) mmol/L 08/13/18 08/13/18 08/13/18 Range/Units 18:00 13:35 13:35 WBC (4.8-10.8) K/uL RBC (4.40-5.90) Mil/uL Hgb (12.0-18.0) g/dL Hct (35.0-51.0) % MCV (80.0-94.0) fL MCH (27.0-31.0) pg MCHC (33.0-37.0) g/dL RDW (11.5-14.5) % Plt Count (130-400) K/uL MPV (7.2-11.7) fL Neut % (Auto) (50.0-75.0) % Lymph % (Auto) (20.0-40.0) % Orange % (Auto) (0.0-10.0) % Eos % (Auto) (0.0-4.0) % Baso % (Auto) (0.0-2.0) % Neut # (Auto) (1.8-7.0) K/uL Lymph # (Auto) (1.0-4.3) K/uL Orange # (Auto) (0.0-0.8) K/uL Eos # (Auto) (0.0-0.7) K/uL Baso # (Auto) (0.0-0.2) K/uL Neutrophils % (Manual) (50-75) % Band Neutrophils % (0-2) % Lymphocytes % (Manual) (20-40) % Monocytes % (Manual) (0-10) % Platelet Estimate (NORMAL) Hypochromasia (manual) Poikilocytosis (manual Anisocytosis (manual) APTT 51 H D (21-34) SECONDS Puncture Site pCO2 (35-45) mm/Hg pO2 (80-100) mm/Hg HCO3 (21-28) mmol/L ABG pH (7.35-7.45) ABG Total CO2 (22-28) mmol/L ABG O2 Saturation (95-98) % ABG Base Excess (-2.0-3.0) mmol/L Danny Test ABG Potassium (3.6-5.2) mmol/L A-a O2 Difference mm/Hg Respiratory Index Glucose (75-110) mg/dl Lactate (0.7-2.1) mmol/L Vent Mode Mechanical Rate FiO2 % Tidal Volume PEEP Sodium 136 (132-148) mmol/L Potassium 3.8 (3.6-5.2) mmol/L Chloride 109 H (98-107) mmol/L Carbon Dioxide 21 L (22-30) mmol/L Anion Gap 11 (10-20) BUN 30 H (9-20) mg/dL Creatinine 1.5 (0.8-1.5) mg/dL Est GFR ( Amer) 54 Est GFR (Non-Af Amer) 45 POC Glucose (mg/dL) 152 H (65-110) mg/dL Random Glucose 170 H D (75-110) mg/dL Calcium 6.8 L (8.6-10.4) mg/dl Phosphorus 3.0 (2.5-4.5) mg/dL Magnesium 1.6 (1.6-2.3) mg/dL Total Bilirubin 0.5 (0.2-1.3) mg/dL AST 64 H D (17-59) U/L ALT 49 (21-72) U/L Alkaline Phosphatase 45 (38-126) U/L Total Protein 5.4 L (6.3-8.3) g/dL Albumin 2.7 L (3.5-5.0) g/dL Globulin 2.7 (2.2-3.9) gm/dL Albumin/Globulin Ratio 1.0 (1.0-2.1) Arterial Blood Potassium (3.6-5.2) mmol/L 08/13/18 08/13/18 08/13/18 Range/Units 13:35 12:01 10:57 WBC 11.4 H (4.8-10.8) K/uL RBC 3.06 L (4.40-5.90) Mil/uL Hgb 9.4 L (12.0-18.0) g/dL Hct 28.0 L (35.0-51.0) % MCV 91.5 (80.0-94.0) fL MCH 30.7 (27.0-31.0) pg MCHC 33.5 (33.0-37.0) g/dL RDW 14.4 (11.5-14.5) % Plt Count 159 (130-400) K/uL MPV 8.2 (7.2-11.7) fL Neut % (Auto) 84.8 H (50.0-75.0) % Lymph % (Auto) 7.6 L (20.0-40.0) % Orange % (Auto) 7.2 (0.0-10.0) % Eos % (Auto) 0.1 (0.0-4.0) % Baso % (Auto) 0.3 (0.0-2.0) % Neut # (Auto) 9.7 H (1.8-7.0) K/uL Lymph # (Auto) 0.9 L (1.0-4.3) K/uL Orange # (Auto) 0.8 (0.0-0.8) K/uL Eos # (Auto) 0.0 (0.0-0.7) K/uL Baso # (Auto) 0.0 (0.0-0.2) K/uL Neutrophils % (Manual) 87 H (50-75) % Band Neutrophils % 2 (0-2) % Lymphocytes % (Manual) 5 L (20-40) % Monocytes % (Manual) 6 (0-10) % Platelet Estimate Normal (NORMAL) Hypochromasia (manual) Slight Poikilocytosis (manual Slight Anisocytosis (manual) Slight APTT (21-34) SECONDS Puncture Site pCO2 (35-45) mm/Hg pO2 (80-100) mm/Hg HCO3 (21-28) mmol/L ABG pH (7.35-7.45) ABG Total CO2 (22-28) mmol/L ABG O2 Saturation (95-98) % ABG Base Excess (-2.0-3.0) mmol/L Danny Test ABG Potassium (3.6-5.2) mmol/L A-a O2 Difference mm/Hg Respiratory Index Glucose (75-110) mg/dl Lactate (0.7-2.1) mmol/L Vent Mode Mechanical Rate FiO2 % Tidal Volume PEEP Sodium (132-148) mmol/L Potassium (3.6-5.2) mmol/L Chloride (98-107) mmol/L Carbon Dioxide (22-30) mmol/L Anion Gap (10-20) BUN (9-20) mg/dL Creatinine (0.8-1.5) mg/dL Est GFR ( Amer) Est GFR (Non-Af Amer) POC Glucose (mg/dL) 178 H 163 H (65-110) mg/dL Random Glucose (75-110) mg/dL Calcium (8.6-10.4) mg/dl Phosphorus (2.5-4.5) mg/dL Magnesium (1.6-2.3) mg/dL Total Bilirubin (0.2-1.3) mg/dL AST (17-59) U/L ALT (21-72) U/L Alkaline Phosphatase (38-126) U/L Total Protein (6.3-8.3) g/dL Albumin (3.5-5.0) g/dL Globulin (2.2-3.9) gm/dL Albumin/Globulin Ratio (1.0-2.1) Arterial Blood Potassium (3.6-5.2) mmol/L 01/04/19 Range/Units 10:24 WBC (4.8-10.8) K/uL RBC (4.40-5.90) Mil/uL Hgb (12.0-18.0) g/dL Hct (35.0-51.0) % MCV (80.0-94.0) fL MCH (27.0-31.0) pg MCHC (33.0-37.0) g/dL RDW (11.5-14.5) % Plt Count (130-400) K/uL MPV (7.2-11.7) fL Neut % (Auto) (50.0-75.0) % Lymph % (Auto) (20.0-40.0) % Orange % (Auto) (0.0-10.0) % Eos % (Auto) (0.0-4.0) % Baso % (Auto) (0.0-2.0) % Neut # (Auto) (1.8-7.0) K/uL Lymph # (Auto) (1.0-4.3) K/uL Orange # (Auto) (0.0-0.8) K/uL Eos # (Auto) (0.0-0.7) K/uL Baso # (Auto) (0.0-0.2) K/uL Neutrophils % (Manual) (50-75) % Band Neutrophils % (0-2) % Lymphocytes % (Manual) (20-40) % Monocytes % (Manual) (0-10) % Platelet Estimate (NORMAL) Hypochromasia (manual) Poikilocytosis (manual Anisocytosis (manual) APTT (21-34) SECONDS Puncture Site pCO2 (35-45) mm/Hg pO2 (80-100) mm/Hg HCO3 (21-28) mmol/L ABG pH (7.35-7.45) ABG Total CO2 (22-28) mmol/L ABG O2 Saturation (95-98) % ABG Base Excess (-2.0-3.0) mmol/L Danny Test ABG Potassium (3.6-5.2) mmol/L A-a O2 Difference mm/Hg Respiratory Index Glucose (75-110) mg/dl Lactate (0.7-2.1) mmol/L Vent Mode Mechanical Rate FiO2 % Tidal Volume PEEP Sodium (132-148) mmol/L Potassium (3.6-5.2) mmol/L Chloride (98-107) mmol/L Carbon Dioxide (22-30) mmol/L Anion Gap (10-20) BUN (9-20) mg/dL Creatinine (0.8-1.5) mg/dL Est GFR ( Amer) Est GFR (Non-Af Amer) POC Glucose (mg/dL) 165 H (65-110) mg/dL Random Glucose (75-110) mg/dL Calcium (8.6-10.4) mg/dl Phosphorus (2.5-4.5) mg/dL Magnesium (1.6-2.3) mg/dL Total Bilirubin (0.2-1.3) mg/dL AST (17-59) U/L ALT (21-72) U/L Alkaline Phosphatase (38-126) U/L Total Protein (6.3-8.3) g/dL Albumin (3.5-5.0) g/dL Globulin (2.2-3.9) gm/dL Albumin/Globulin Ratio (1.0-2.1) Arterial Blood Potassium (3.6-5.2) mmol/L Laboratory Results - last 24 hr 08/13/18 08/13/18 08/13/18 10:24 10:57 12:01 WBC RBC Hgb Hct MCV MCH MCHC RDW Plt Count MPV Neut % (Auto) Lymph % (Auto) Orange % (Auto) Eos % (Auto) Baso % (Auto) Neut # (Auto) Lymph # (Auto) Orange # (Auto) Eos # (Auto) Baso # (Auto) Neutrophils % (Manual) Band Neutrophils % Lymphocytes % (Manual) Monocytes % (Manual) Platelet Estimate Hypochromasia (manual) Poikilocytosis (manual Anisocytosis (manual) APTT Puncture Site pCO2 pO2 HCO3 ABG pH ABG Total CO2 ABG O2 Saturation ABG Base Excess Danny Test ABG Potassium A-a O2 Difference Respiratory Index Glucose Lactate Vent Mode Mechanical Rate FiO2 Tidal Volume PEEP Sodium Potassium Chloride Carbon Dioxide Anion Gap BUN Creatinine Est GFR ( Amer) Est GFR (Non-Af Amer) POC Glucose (mg/dL) 165 H 163 H 178 H Random Glucose Calcium Phosphorus Magnesium Total Bilirubin AST ALT Alkaline Phosphatase Total Protein Albumin Globulin Albumin/Globulin Ratio Arterial Blood Potassium 08/13/18 08/13/18 08/13/18 13:35 13:35 13:35 WBC 11.4 H RBC 3.06 L Hgb 9.4 L Hct 28.0 L MCV 91.5 MCH 30.7 MCHC 33.5 RDW 14.4 Plt Count 159 MPV 8.2 Neut % (Auto) 84.8 H Lymph % (Auto) 7.6 L Orange % (Auto) 7.2 Eos % (Auto) 0.1 Baso % (Auto) 0.3 Neut # (Auto) 9.7 H Lymph # (Auto) 0.9 L Orange # (Auto) 0.8 Eos # (Auto) 0.0 Baso # (Auto) 0.0 Neutrophils % (Manual) 87 H Band Neutrophils % 2 Lymphocytes % (Manual) 5 L Monocytes % (Manual) 6 Platelet Estimate Normal Hypochromasia (manual) Slight Poikilocytosis (manual Slight Anisocytosis (manual) Slight APTT 51 H D Puncture Site pCO2 pO2 HCO3 ABG pH ABG Total CO2 ABG O2 Saturation ABG Base Excess Danny Test ABG Potassium A-a O2 Difference Respiratory Index Glucose Lactate Vent Mode Mechanical Rate FiO2 Tidal Volume PEEP Sodium 136 Potassium 3.8 Chloride 109 H Carbon Dioxide 21 L Anion Gap 11 BUN 30 H Creatinine 1.5 Est GFR ( Amer) 54 Est GFR (Non-Af Amer) 45 POC Glucose (mg/dL) Random Glucose 170 H D Calcium 6.8 L Phosphorus 3.0 Magnesium 1.6 Total Bilirubin 0.5 AST 64 H D ALT 49 Alkaline Phosphatase 45 Total Protein 5.4 L Albumin 2.7 L Globulin 2.7 Albumin/Globulin Ratio 1.0 Arterial Blood Potassium 08/13/18 08/14/18 08/14/18 18:00 00:05 04:40 WBC RBC Hgb Hct MCV MCH MCHC RDW Plt Count MPV Neut % (Auto) Lymph % (Auto) Orange % (Auto) Eos % (Auto) Baso % (Auto) Neut # (Auto) Lymph # (Auto) Orange # (Auto) Eos # (Auto) Baso # (Auto) Neutrophils % (Manual) Band Neutrophils % Lymphocytes % (Manual) Monocytes % (Manual) Platelet Estimate Hypochromasia (manual) Poikilocytosis (manual Anisocytosis (manual) APTT Puncture Site Rb pCO2 30 L pO2 54 L HCO3 27.2 ABG pH 7.53 H ABG Total CO2 26.0 ABG O2 Saturation 93.8 L ABG Base Excess 3.1 H Danny Test Na ABG Potassium 3.3 L A-a O2 Difference 265.0 Respiratory Index 4.9 Glucose 125 H Lactate 1.4 Vent Mode Prvc Mechanical Rate 16 FiO2 50.0 Tidal Volume 500 PEEP 5 Sodium 144.0 Potassium Chloride 113.0 H Carbon Dioxide Anion Gap BUN Creatinine Est GFR ( Amer) Est GFR (Non-Af Amer) POC Glucose (mg/dL) 152 H 141 H Random Glucose Calcium Phosphorus Magnesium Total Bilirubin AST ALT Alkaline Phosphatase Total Protein Albumin Globulin Albumin/Globulin Ratio Arterial Blood Potassium 3.3 L 08/14/18 08/14/18 08/14/18 05:22 05:49 05:49 WBC 9.8 RBC 3.07 L Hgb 9.2 L Hct 27.6 L MCV 89.9 MCH 29.9 MCHC 33.3 RDW 14.6 H Plt Count 149 MPV 8.3 Neut % (Auto) 73.6 Lymph % (Auto) 18.3 L Orange % (Auto) 7.6 Eos % (Auto) 0.3 Baso % (Auto) 0.2 Neut # (Auto) 7.2 H Lymph # (Auto) 1.8 Orange # (Auto) 0.7 Eos # (Auto) 0.0 Baso # (Auto) 0.0 Neutrophils % (Manual) Band Neutrophils % Lymphocytes % (Manual) Monocytes % (Manual) Platelet Estimate Hypochromasia (manual) Poikilocytosis (manual Anisocytosis (manual) APTT Puncture Site pCO2 pO2 HCO3 ABG pH ABG Total CO2 ABG O2 Saturation ABG Base Excess Danny Test ABG Potassium A-a O2 Difference Respiratory Index Glucose Lactate Vent Mode Mechanical Rate FiO2 Tidal Volume PEEP Sodium 139 Potassium 3.2 L Chloride 108 H Carbon Dioxide 26 Anion Gap 8 L BUN 25 H Creatinine 1.6 H Est GFR ( Amer) 50 Est GFR (Non-Af Amer) 42 POC Glucose (mg/dL) 152 H Random Glucose 131 H D Calcium 6.9 L Phosphorus 2.4 L Magnesium 1.8 Total Bilirubin 0.4 AST 54 ALT 41 Alkaline Phosphatase 48 Total Protein 5.4 L Albumin 2.7 L Globulin 2.7 Albumin/Globulin Ratio 1.0 Arterial Blood Potassium 08/14/18 05:49 WBC RBC Hgb Hct MCV MCH MCHC RDW Plt Count MPV Neut % (Auto) Lymph % (Auto) Orange % (Auto) Eos % (Auto) Baso % (Auto) Neut # (Auto) Lymph # (Auto) Orange # (Auto) Eos # (Auto) Baso # (Auto) Neutrophils % (Manual) Band Neutrophils % Lymphocytes % (Manual) Monocytes % (Manual) Platelet Estimate Hypochromasia (manual) Poikilocytosis (manual Anisocytosis (manual) APTT 38 H D Puncture Site pCO2 pO2 HCO3 ABG pH ABG Total CO2 ABG O2 Saturation ABG Base Excess Danny Test ABG Potassium A-a O2 Difference Respiratory Index Glucose Lactate Vent Mode Mechanical Rate FiO2 Tidal Volume PEEP Sodium Potassium Chloride Carbon Dioxide Anion Gap BUN Creatinine Est GFR ( Amer) Est GFR (Non-Af Amer) POC Glucose (mg/dL) Random Glucose Calcium Phosphorus Magnesium Total Bilirubin AST ALT Alkaline Phosphatase Total Protein Albumin Globulin Albumin/Globulin Ratio Arterial Blood Potassium Fingerstick Blood Sugar Results: 141
--- NOTE | 2018-08-14 09:53 | RAD ---
HISTORY: intubated COMPARISON: Portable chest x-ray performed 08/13/18 TECHNIQUE: Chest, one view. FINDINGS: Endotracheal tube terminates approximately 3.3 cm above the carolann. Left-sided IJ approach central venous catheter extends to the brachiocephalic/SVC junction. Nasogastric tube extends expected location of the stomach. LUNGS: Moderate pulmonary venous congestion/edema. Please note that chest x-ray has limited sensitivity for the detection of pulmonary masses. PLEURA: No significant pleural effusion identified. No definite pneumothorax . CARDIOVASCULAR: Cardiomegaly. Atherosclerotic calcifications present. OSSEOUS STRUCTURES: No acute osseous abnormality identified. VISUALIZED UPPER ABDOMEN: Unremarkable. OTHER FINDINGS: None. IMPRESSION: Endotracheal tube, nasogastric tube, and left-sided IJ approach central venous catheter is above. Moderate pulmonary venous congestion/edema.
--- NOTE | 2018-08-14 12:17 | CP.PCM.CON ---
History of Present Illness - History of Present Illness History of Present Illness: Neurology consult dictated. Please see for full report. In brief, Mr Arredondo is an 83 yr old male s/p cardiac arrest. Past Patient History - Infectious Disease Hx of Infectious Diseases: C.diff - Past Medical History & Family History Past Medical History?: Yes - Past Social History Smoking Status: Former Smoker - CARDIAC Hx Atrial Fibrillation: Yes Hx Cardia Arrhythmia: (A FIB) Hx Congestive Heart Failure: Yes Hx Hypercholesterolemia: Yes Hx Hypertension: Yes - PULMONARY Hx Respiratory Disorders: No - NEUROLOGICAL Hx Alzheimer's Disease: Yes Hx Dementia: Yes - HEENT Hx HEENT Problems: No - RENAL Hx Chronic Kidney Disease: No - ENDOCRINE/METABOLIC Hx Hypothyroidism: Yes - HEMATOLOGICAL/ONCOLOGICAL Hx Blood Disorders: No - INTEGUMENTARY Hx Dermatological Problems: No - MUSCULOSKELETAL/RHEUMATOLOGICAL Hx Falls: Yes - GASTROINTESTINAL Hx Gastrointestinal Disorders: No - GENITOURINARY/GYNECOLOGICAL Hx Prostate Problems: Yes - PSYCHIATRIC Hx Substance Use: No - SURGICAL HISTORY Hx Carotid Endarterectomy: Yes (RIGHT) - ANESTHESIA Hx Anesthesia: Yes Hx Anesthesia Reactions: No Hx Malignant Hyperthermia: No Meds Allergies/Adverse Reactions: Allergies Allergy/AdvReac Type Severity Reaction Status Date / Time No Known Allergies Allergy Verified 08/11/18 14:21 - Medications Medications: Current Medications Acetaminophen (Tylenol 650mg/20.3ml Solution Ud) 975 mg PO Q6H PRN PRN Reason: shivering Last Admin: 08/13/18 13:43 Dose: 975 mg Heparin Sodium/Sodium Chloride (Heparin 66818 Units/250ml 1/2 Normal Saline) 25,000 units in 250 mls @ 8.165 mls/hr IV .Q24H PRN; Protocol PRN Reason: ADJUST RATE PER PROTOCOL Last Titration: 08/14/18 10:14 Dose: 8 units/kg/hr, 5.443 mls/hr Propofol (Diprivan) 1,000 mg in 100 mls @ 2.041 mls/hr IV .Q24H PRN; Protocol PRN Reason: TITRATE PER MD ORDER Last Titration: 08/14/18 09:30 Dose: 0 mcg/kg/min, 0 mls/hr Piperacillin Sod/Tazobactam (Sod 3.375 gm/ Sodium Chloride) 100 mls @ 200 mls/hr IVPB Q8H [facility]; Protocol Last Admin: 08/14/18 09:15 Dose: 200 mls/hr Insulin Human Regular (Novolin R) 0 unit SC Q6H [facility]; Protocol Last Admin: 08/14/18 11:29 Dose: Not Given Metoprolol Tartrate (Lopressor) 25 mg PO BID [facility] Last Admin: 08/14/18 09:50 Dose: 25 mg Pantoprazole Sodium (Protonix Inj) 40 mg IVP DAILY [facility] Last Admin: 08/14/18 09:15 Dose: 40 mg Results - Vital Signs Recent Vital Signs: Last Vital Signs Temp 100.4 F H 08/14/18 04:00 Pulse 103 H 08/14/18 11:00 Resp 17 08/14/18 11:00 BP 135/70 08/14/18 11:00 Pulse Ox 100 08/14/18 11:00 - Labs Result Diagrams: 08/14/18 05:49 08/14/18 05:49 Labs: Laboratory Results - last 24 hr 08/13/18 08/13/18 08/13/18 13:35 13:35 13:35 WBC 11.4 H RBC 3.06 L Hgb 9.4 L Hct 28.0 L MCV 91.5 MCH 30.7 MCHC 33.5 RDW 14.4 Plt Count 159 MPV 8.2 Neut % (Auto) 84.8 H Lymph % (Auto) 7.6 L [place] % (Auto) 7.2 Eos % (Auto) 0.1 Baso % (Auto) 0.3 Neut # (Auto) 9.7 H Lymph # (Auto) 0.9 L [place] # (Auto) 0.8 Eos # (Auto) 0.0 Baso # (Auto) 0.0 Neutrophils % (Manual) 87 H Band Neutrophils % 2 Lymphocytes % (Manual) 5 L Monocytes % (Manual) 6 Platelet Estimate Normal Hypochromasia (manual) Slight Poikilocytosis (manual Slight Anisocytosis (manual) Slight APTT 51 H D Puncture Site pCO2 pO2 HCO3 ABG pH ABG Total CO2 ABG O2 Saturation ABG Base Excess Danny Test ABG Potassium A-a O2 Difference Respiratory Index Glucose Lactate Vent Mode Mechanical Rate FiO2 Tidal Volume PEEP Sodium 136 Potassium 3.8 Chloride 109 H Carbon Dioxide 21 L Anion Gap 11 BUN 30 H Creatinine 1.5 Est GFR ( Amer) 54 Est GFR (Non-Af Amer) 45 POC Glucose (mg/dL) Random Glucose 170 H D Calcium 6.8 L Phosphorus 3.0 Magnesium 1.6 Total Bilirubin 0.5 AST 64 H D ALT 49 Alkaline Phosphatase 45 Total Protein 5.4 L Albumin 2.7 L Globulin 2.7 Albumin/Globulin Ratio 1.0 Arterial Blood Potassium 08/13/18 08/14/18 08/14/18 18:00 00:05 04:40 WBC RBC Hgb Hct MCV MCH MCHC RDW Plt Count MPV Neut % (Auto) Lymph % (Auto) [place] % (Auto) Eos % (Auto) Baso % (Auto) Neut # (Auto) Lymph # (Auto) [place] # (Auto) Eos # (Auto) Baso # (Auto) Neutrophils % (Manual) Band Neutrophils % Lymphocytes % (Manual) Monocytes % (Manual) Platelet Estimate Hypochromasia (manual) Poikilocytosis (manual Anisocytosis (manual) APTT Puncture Site Rb pCO2 30 L pO2 54 L HCO3 27.2 ABG pH 7.53 H ABG Total CO2 26.0 ABG O2 Saturation 93.8 L ABG Base Excess 3.1 H Danny Test Na ABG Potassium 3.3 L A-a O2 Difference 265.0 Respiratory Index 4.9 Glucose 125 H Lactate 1.4 Vent Mode Prvc Mechanical Rate 16 FiO2 50.0 Tidal Volume 500 PEEP 5 Sodium 144.0 Potassium Chloride 113.0 H Carbon Dioxide Anion Gap BUN Creatinine Est GFR ( Amer) Est GFR (Non-Af Amer) POC Glucose (mg/dL) 152 H 141 H Random Glucose Calcium Phosphorus Magnesium Total Bilirubin AST ALT Alkaline Phosphatase Total Protein Albumin Globulin Albumin/Globulin Ratio Arterial Blood Potassium 3.3 L 08/14/18 08/14/18 08/14/18 05:22 05:49 05:49 WBC 9.8 RBC 3.07 L Hgb 9.2 L Hct 27.6 L MCV 89.9 MCH 29.9 MCHC 33.3 RDW 14.6 H Plt Count 149 MPV 8.3 Neut % (Auto) 73.6 Lymph % (Auto) 18.3 L [place] % (Auto) 7.6 Eos % (Auto) 0.3 Baso % (Auto) 0.2 Neut # (Auto) 7.2 H Lymph # (Auto) 1.8 [place] # (Auto) 0.7 Eos # (Auto) 0.0 Baso # (Auto) 0.0 Neutrophils % (Manual) Band Neutrophils % Lymphocytes % (Manual) Monocytes % (Manual) Platelet Estimate Hypochromasia (manual) Poikilocytosis (manual Anisocytosis (manual) APTT Puncture Site pCO2 pO2 HCO3 ABG pH ABG Total CO2 ABG O2 Saturation ABG Base Excess Danny Test ABG Potassium A-a O2 Difference Respiratory Index Glucose Lactate Vent Mode Mechanical Rate FiO2 Tidal Volume PEEP Sodium 139 Potassium 3.2 L Chloride 108 H Carbon Dioxide 26 Anion Gap 8 L BUN 25 H Creatinine 1.6 H Est GFR ( Amer) 50 Est GFR (Non-Af Amer) 42 POC Glucose (mg/dL) 152 H Random Glucose 131 H D Calcium 6.9 L Phosphorus 2.4 L Magnesium 1.8 Total Bilirubin 0.4 AST 54 ALT 41 Alkaline Phosphatase 48 Total Protein 5.4 L Albumin 2.7 L Globulin 2.7 Albumin/Globulin Ratio 1.0 Arterial Blood Potassium 08/14/18 05:49 WBC RBC Hgb Hct MCV MCH MCHC RDW Plt Count MPV Neut % (Auto) Lymph % (Auto) [place] % (Auto) Eos % (Auto) Baso % (Auto) Neut # (Auto) Lymph # (Auto) [place] # (Auto) Eos # (Auto) Baso # (Auto) Neutrophils % (Manual) Band Neutrophils % Lymphocytes % (Manual) Monocytes % (Manual) Platelet Estimate Hypochromasia (manual) Poikilocytosis (manual Anisocytosis (manual) APTT 38 H D Puncture Site pCO2 pO2 HCO3 ABG pH ABG Total CO2 ABG O2 Saturation ABG Base Excess Danny Test ABG Potassium A-a O2 Difference Respiratory Index Glucose Lactate Vent Mode Mechanical Rate FiO2 Tidal Volume PEEP Sodium Potassium Chloride Carbon Dioxide Anion Gap BUN Creatinine Est GFR ( Amer) Est GFR (Non-Af Amer) POC Glucose (mg/dL) Random Glucose Calcium Phosphorus Magnesium Total Bilirubin AST ALT Alkaline Phosphatase Total Protein Albumin Globulin Albumin/Globulin Ratio Arterial Blood Potassium
--- NOTE | 2018-08-14 17:43 | CP.PCM.PN ---
Subjective - Date & Time of Evaluation Date of Evaluation: 08/14/18 Time of Evaluation: 17:43 - Subjective Subjective: Patient seen and examined Condition unchanged On vent support Objective - Vital Signs/Intake and Output Vital Signs (last 24 hours): Temp Pulse Resp BP Pulse Ox 99.8 F H 98 H 19 171/91 H 100 08/14/18 12:00 08/14/18 17:01 08/14/18 17:01 08/14/18 17:21 08/14/18 17:01 Intake and Output: 08/14/18 08/14/18 06:59 18:59 Intake Total 905.4 581.1 Output Total 1010 525 Balance -104.6 56.1 - Medications Medications: Current Medications Acetaminophen (Tylenol 650mg/20.3ml Solution Ud) 975 mg PO Q6H PRN PRN Reason: shivering Last Admin: 08/13/18 13:43 Dose: 975 mg Heparin Sodium/Sodium Chloride (Heparin 81907 Units/250ml 1/2 Normal Saline) 25,000 units in 250 mls @ 8.165 mls/hr IV .Q24H PRN; Protocol PRN Reason: ADJUST RATE PER PROTOCOL Last Titration: 08/14/18 10:14 Dose: 8 units/kg/hr, 5.443 mls/hr Propofol (Diprivan) 1,000 mg in 100 mls @ 2.041 mls/hr IV .Q24H PRN; Protocol PRN Reason: TITRATE PER MD ORDER Last Titration: 08/14/18 09:30 Dose: 0 mcg/kg/min, 0 mls/hr Piperacillin Sod/Tazobactam (Sod 3.375 gm/ Sodium Chloride) 100 mls @ 200 mls/ hr IVPB Q8H [facility]; Protocol Last Admin: 08/14/18 17:20 Dose: 200 mls/hr Insulin Human Regular (Novolin R) 0 unit SC Q6H [facility]; Protocol Last Admin: 08/14/18 11:29 Dose: Not Given Metoprolol Tartrate (Lopressor) 25 mg PO BID [facility] Last Admin: 08/14/18 17:21 Dose: 25 mg Pantoprazole Sodium (Protonix Inj) 40 mg IVP DAILY [facility] Last Admin: 08/14/18 09:15 Dose: 40 mg - Labs Labs: 08/14/18 05:49 08/14/18 05:49 PT 16.8 SECONDS (9.7-12.2) H 08/12/18 13:37 INR 1.5 08/12/18 13:37 APTT 38 SECONDS (21-34) H D 08/14/18 05:49 - Head Exam Head Exam: NORMAL INSPECTION - Eye Exam Eye Exam: Normal appearance - ENT Exam ENT Exam: Mucous Membranes Moist - Respiratory Exam Respiratory Exam: Rales, Rhonchi - Cardiovascular Exam Cardiovascular Exam: REGULAR RHYTHM, +S1, +S2 - GI/Abdominal Exam GI & Abdominal Exam: Soft, Normal Bowel Sounds - Extremities Exam Extremities Exam: Normal Inspection Assessment and Plan (1) Cardiac arrest Status: Acute (2) Respiratory arrest Status: Acute (3) Congestive heart failure Status: Acute - Assessment and Plan (Free Text) Plan: Continue full vent support Antibiotics Lasix Monitor I's and O's NGT feeds Supportive care DVT/GI prophalaxis
--- NOTE | 2018-08-14 21:34 | CP.PCM.PN ---
Subjective - Date & Time of Evaluation Date of Evaluation: 08/14/18 Time of Evaluation: 12:00 - Subjective Subjective: clinically same Objective - Vital Signs/Intake and Output Vital Signs (last 24 hours): Temp Pulse Resp BP Pulse Ox 98.6 F 89 18 151/84 H 100 08/14/18 20:00 08/14/18 21:01 08/14/18 21:01 08/14/18 21:01 08/14/18 21:01 Intake and Output: 08/14/18 08/15/18 18:59 06:59 Intake Total 760.9 245.8 Output Total 635 150 Balance 125.9 95.8 - Medications Medications: Current Medications Acetaminophen (Tylenol 650mg/20.3ml Solution Ud) 975 mg PO Q6H PRN PRN Reason: shivering Last Admin: 08/13/18 13:43 Dose: 975 mg Heparin Sodium/Sodium Chloride (Heparin 56500 Units/250ml 1/2 Normal Saline) 25,000 units in 250 mls @ 8.165 mls/hr IV .Q24H PRN; Protocol PRN Reason: ADJUST RATE PER PROTOCOL Last Titration: 08/14/18 10:14 Dose: 8 units/kg/hr, 5.443 mls/hr Propofol (Diprivan) 1,000 mg in 100 mls @ 2.041 mls/hr IV .Q24H PRN; Protocol PRN Reason: TITRATE PER MD ORDER Last Titration: 08/14/18 21:10 Dose: 25 mcg/kg/min, 10.206 mls/hr Piperacillin Sod/Tazobactam (Sod 3.375 gm/ Sodium Chloride) 100 mls @ 200 mls/hr IVPB Q8H [facility]; Protocol Last Admin: 08/14/18 17:20 Dose: 200 mls/hr Insulin Human Regular (Novolin R) 0 unit SC Q6H [facility]; Protocol Last Admin: 08/14/18 19:15 Dose: 1 u Metoprolol Tartrate (Lopressor) 25 mg PO BID [facility] Last Admin: 08/14/18 17:21 Dose: 25 mg Pantoprazole Sodium (Protonix Inj) 40 mg IVP DAILY [facility] Last Admin: 08/14/18 09:15 Dose: 40 mg - Labs Labs: 08/14/18 05:49 08/14/18 05:49 PT 16.8 SECONDS (9.7-12.2) H 08/12/18 13:37 INR 1.5 08/12/18 13:37 APTT 47 SECONDS (21-34) H 08/14/18 18:19
[2018-08-14] MEDS: Heparin25000 units/250ml 1/2NS 25,000 UNITS/250 ML BAG IV PRN (22:45)
[2018-08-15] MEDS: Piperacillin/Tazobact 3.375 GM in Sodium Chloride 100 ML IVPB SCH ×3 (01:00→18:38)
[2018-08-15] MEDS: Propofol 10 mg/ml 1,000 MG/100 ML VIAL IV PRN ×2 (03:50→16:00)
[2018-08-15 05:17] LABS: ARTERIAL BLOOD GAS HCO3 28.2 mmol/L (21-28); ARTERIAL BLOOD GAS HEMOGLOBIN 9.2 g/dL (11.7-17.4); ARTERIAL BLOOD GAS O2 SAT 99.9 % (95-98); ARTERIAL BLOOD GAS PCO2 40 mm/Hg (35-45); ARTERIAL BLOOD GAS PH 7.46 (7.35-7.45); ARTERIAL BLOOD GAS PO2 151 mm/Hg (80-100); ARTERIAL BLOOD GAS TCO2 29.6 mmol/L (22-28)
[2018-08-15 05:28] LABS: BASO % 0.2 % (0.0-2.0); EOS # 0.1 K/uL (0.0-0.7); EOS % 0.6 % (0.0-4.0); HEMOGLOBIN 8.7 g/dL (12.0-18.0); LYMPH # 1.9 K/uL (1.0-4.3); LYMPH % 20.4 % (20.0-40.0); MEAN CELL VOLUME 91.2 fL (80.0-94.0); MEAN CORPUSCULAR HEMOGLOBIN 30.4 pg (27.0-31.0); MEAN CORPUSCULAR HGB CONC 33.4 g/dL (33.0-37.0); MEAN PLATELET VOLUME 7.9 fL (7.2-11.7); MONO # 0.6 K/uL (0.0-0.8); NEUT # 6.5 K/uL (1.8-7.0); NEUT % 71.8 % (50.0-75.0); RBC 2.85 Mil/uL (4.40-5.90); RED CELL DISTRIBUTION WIDTH 14.5 % (11.5-14.5); WHITE BLOOD COUNT 9.1 K/uL (4.8-10.8)
[2018-08-15] MEDS: (Novolin R) Insulin Human Regular 100 units/ml vial SC SCH ×5 (06:00→23:36)
[2018-08-15 06:15] LABS: ALBUMIN 2.8 g/dL (3.5-5.0); CALCIUM 7.2 mg/dl (8.6-10.4)
--- NOTE | 2018-08-15 11:55 | RAD ---
HISTORY: vent COMPARISON: Chest x-ray performed 08/14/18 TECHNIQUE: Chest, one view. FINDINGS: Endotracheal tube terminates approximately 0.6 cm. Nasogastric tube extends expected location LUNGS: Increasing moderate to severe edema like pattern. Please note that chest x-ray has limited sensitivity for the detection of pulmonary masses. PLEURA: Small right pleural effusion. No definite pneumothorax . CARDIOVASCULAR: Cardiomegaly. Atherosclerotic calcifications. OSSEOUS STRUCTURES: Degenerative changes. VISUALIZED UPPER ABDOMEN: Unremarkable. OTHER FINDINGS: None. IMPRESSION: Endotracheal tube. Nasogastric tube. Interval worsening of aeration with moderate to severe edema like pattern. Small right pleural effusion. Cardiomegaly.
--- NOTE | 2018-08-15 13:00 | CP.PCM.PN ---
Subjective - Date & Time of Evaluation Date of Evaluation: 08/15/18 Time of Evaluation: 12:59 - Subjective Subjective: Pt is Seen and examined On vent support Objective - Vital Signs/Intake and Output Vital Signs (last 24 hours): Temp Pulse Resp BP Pulse Ox 99.3 F 94 H 17 120/62 97 08/15/18 04:00 08/15/18 07:01 08/15/18 07:01 08/15/18 09:53 08/15/18 07:01 Intake and Output: 08/15/18 08/15/18 06:59 18:59 Intake Total 970.9 124.9 Output Total 500 50 Balance 470.9 74.9 - Medications Medications: Current Medications Acetaminophen (Tylenol 650mg/20.3ml Solution Ud) 975 mg PO Q6H PRN PRN Reason: shivering Last Admin: 08/13/18 13:43 Dose: 975 mg Heparin Sodium (Porcine) (Heparin) 2,290 units IV ONCE ONE Stop: 08/15/18 13:01 Propofol (Diprivan) 1,000 mg in 100 mls @ 2.041 mls/hr IV .Q24H PRN; Protocol PRN Reason: TITRATE PER MD ORDER Last Titration: 08/15/18 09:52 Dose: 10 mcg/kg/min, 4.082 mls/hr Piperacillin Sod/Tazobactam (Sod 3.375 gm/ Sodium Chloride) 100 mls @ 200 mls/hr IVPB Q8H [facility]; Protocol Last Admin: 08/15/18 09:53 Dose: 200 mls/hr Heparin Sodium/Sodium Chloride (Heparin 91323 Units/250ml 1/2 Normal Saline) 25,000 units in 250 mls @ 7.646 mls/hr IV .Q24H PRN; Protocol PRN Reason: ADJUST RATE PER PROTOCOL Last Admin: 08/14/18 22:45 Dose: 10 units/kg/hr, 7.646 mls/hr Insulin Human Regular (Novolin R) 0 unit SC Q6H [facility]; Protocol Last Admin: 08/15/18 12:54 Dose: 1 u Metoprolol Tartrate (Lopressor) 25 mg PO BID [facility] Last Admin: 08/15/18 09:53 Dose: 25 mg Pantoprazole Sodium (Protonix Inj) 40 mg IVP DAILY [facility] Last Admin: 08/15/18 09:53 Dose: 40 mg - Labs Labs: 08/15/18 05:22 08/15/18 05:22 PT 16.8 SECONDS (9.7-12.2) H 08/12/18 13:37 INR 1.5 08/12/18 13:37 APTT 42 SECONDS (21-34) H D 08/15/18 12:30 - Head Exam Head Exam: NORMAL INSPECTION - Eye Exam Eye Exam: Normal appearance - Respiratory Exam Respiratory Exam: Chest Wall Tenderness - Cardiovascular Exam Cardiovascular Exam: REGULAR RHYTHM, +S1, +S2 - GI/Abdominal Exam GI & Abdominal Exam: Soft, Normal Bowel Sounds - Extremities Exam Extremities Exam: Normal Inspection Assessment and Plan (1) Cardiac arrest Status: Acute (2) Respiratory arrest Status: Acute (3) Congestive heart failure Status: Acute - Assessment and Plan (Free Text) Plan: Continue full vent support Anoxic brain injury w/u in progress NGT feeds Supportive care DVT/GI prophalaxis
--- NOTE | 2018-08-15 14:46 | CP.PCM.PN ---
Subjective - Date & Time of Evaluation Date of Evaluation: 08/15/18 Time of Evaluation: 14:39 - Subjective Subjective: No events, patient following commands when sedation is reduced. Started on CPAP and Ps trial Objective - Vital Signs/Intake and Output Vital Signs (last 24 hours): Temp Pulse Resp BP Pulse Ox 99.3 F 84 16 142/90 99 08/15/18 04:00 08/15/18 13:01 08/15/18 13:01 08/15/18 13:01 08/15/18 13:01 Intake and Output: 08/15/18 08/15/18 06:59 18:59 Intake Total 970.9 632.7 Output Total 500 50 Balance 470.9 582.7 - Medications Medications: Current Medications Acetaminophen (Tylenol 650mg/20.3ml Solution Ud) 975 mg PO Q6H PRN PRN Reason: shivering Last Admin: 08/13/18 13:43 Dose: 975 mg Propofol (Diprivan) 1,000 mg in 100 mls @ 2.041 mls/hr IV .Q24H PRN; Protocol PRN Reason: TITRATE PER MD ORDER Last Titration: 08/15/18 09:52 Dose: 10 mcg/kg/min, 4.082 mls/hr Piperacillin Sod/Tazobactam (Sod 3.375 gm/ Sodium Chloride) 100 mls @ 200 mls/hr IVPB Q8H [facility]; Protocol Last Admin: 08/15/18 09:53 Dose: 200 mls/hr Heparin Sodium/Sodium Chloride (Heparin 55045 Units/250ml 1/2 Normal Saline) 25,000 units in 250 mls @ 7.646 mls/hr IV .Q24H PRN; Protocol PRN Reason: ADJUST RATE PER PROTOCOL Last Titration: 08/15/18 13:03 Dose: 12 units/kg/hr, 9.175 mls/hr Insulin Human Regular (Novolin R) 0 unit SC Q6H [facility]; Protocol Last Admin: 08/15/18 12:54 Dose: 1 u Metoprolol Tartrate (Lopressor) 25 mg PO BID [facility] Last Admin: 08/15/18 09:53 Dose: 25 mg Pantoprazole Sodium (Protonix Inj) 40 mg IVP DAILY [facility] Last Admin: 08/15/18 09:53 Dose: 40 mg - Labs Labs: 08/15/18 05:22 08/15/18 05:22 PT 16.8 SECONDS (9.7-12.2) H 08/12/18 13:37 INR 1.5 08/12/18 13:37 APTT 42 SECONDS (21-34) H D 08/15/18 12:30 - Additional Findings Additional findings: * HEENT GARY * Neck supple * Chest b/l scattered rales * CVS regular, no gallop or rub * PA soft, nt bs present * ext no edema * 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 Assessment and Plan - Assessment and Plan (Free Text) Assessment: * Appears vib cardiac arrest * Low ef on echo,CHF * NSTEMI * CRI * CHF/pulm edema on cxr, on zosyn, jenny carlos add doxycycline as dd is pna/aspration. Plan: * Cardiology f/u * Diuress prn * CPAP trial * See orders for detail * supportive care * Sliding scale insulin
--- NOTE | 2018-08-15 16:14 | CT ---
Date of service: 08/14/2018 PROCEDURE: CT HEAD WITHOUT CONTRAST. HISTORY: ams, gcs3 COMPARISON: 08/11/2018 TECHNIQUE: Axial computed tomography images were obtained through the head/brain without intravenous contrast. Radiation dose: Total exam DLP = 1375.03 mGy-cm. This CT exam was performed using one or more of the following dose reduction techniques: Automated exposure control, adjustment of the mA and/or kV according to patient size, and/or use of iterative reconstruction technique. FINDINGS: HEMORRHAGE: No intracranial hemorrhage. BRAIN: No mass effect or edema. Chronic microvascular changes are seen. There is severe atrophy. Findings are unchanged. There are no acute findings VENTRICLES: Unremarkable. No hydrocephalus. CALVARIUM: Unremarkable. PARANASAL SINUSES: Unremarkable as visualized. No significant inflammatory changes. MASTOID AIR CELLS: Unremarkable as visualized. No inflammatory changes. OTHER FINDINGS: None. IMPRESSION: There are no acute findings
--- NOTE | 2018-08-15 20:47 | CP.PCM.PN ---
Subjective - Date & Time of Evaluation Date of Evaluation: 08/15/18 Time of Evaluation: 11:30 - Subjective Subjective: clinically same Objective - Vital Signs/Intake and Output Vital Signs (last 24 hours): Temp Pulse Resp BP Pulse Ox 98.5 F 85 15 164/90 H 96 08/15/18 20:00 08/15/18 20:01 08/15/18 20:01 08/15/18 20:01 08/15/18 20:01 Intake and Output: 08/15/18 08/16/18 18:59 06:59 Intake Total 1080.9 106.6 Output Total 1700 750 Balance -619.1 -643.4 - Medications Medications: Current Medications Acetaminophen (Tylenol 650mg/20.3ml Solution Ud) 975 mg PO Q6H PRN PRN Reason: shivering Last Admin: 08/13/18 13:43 Dose: 975 mg Propofol (Diprivan) 1,000 mg in 100 mls @ 2.041 mls/hr IV .Q24H PRN; Protocol PRN Reason: TITRATE PER MD ORDER Last Admin: 08/15/18 16:00 Dose: 10 mcg/kg/min, 4.082 mls/hr Piperacillin Sod/Tazobactam (Sod 3.375 gm/ Sodium Chloride) 100 mls @ 200 mls/hr IVPB Q8H [facility]; Protocol Last Admin: 08/15/18 18:38 Dose: 200 mls/hr Heparin Sodium/Sodium Chloride (Heparin 79175 Units/250ml 1/2 Normal Saline) 25,000 units in 250 mls @ 7.646 mls/hr IV .Q24H PRN; Protocol PRN Reason: ADJUST RATE PER PROTOCOL Last Titration: 08/15/18 13:03 Dose: 12 units/kg/hr, 9.175 mls/hr Doxycycline Hyclate 100 mg/ (Sodium Chloride) 100 mls @ 100 mls/hr IVPB Q12H [facility]; Protocol Last Admin: 08/15/18 16:01 Dose: 100 mls/hr Insulin Human Regular (Novolin R) 0 unit SC Q6H [facility]; Protocol Last Admin: 08/15/18 18:37 Dose: Not Given Metoprolol Tartrate (Lopressor) 25 mg PO BID [facility] Last Admin: 08/15/18 18:39 Dose: 25 mg Pantoprazole Sodium (Protonix Inj) 40 mg IVP DAILY [facility] Last Admin: 08/15/18 09:53 Dose: 40 mg - Labs Labs: 08/15/18 05:22 08/15/18 05:22 PT 16.8 SECONDS (9.7-12.2) H 08/12/18 13:37 INR 1.5 08/12/18 13:37 APTT 55 SECONDS (21-34) H D 08/15/18 18:57
--- NOTE | 2018-08-15 21:49 | CP.PCM.PN ---
Subjective - Date & Time of Evaluation Date of Evaluation: 08/15/18 Time of Evaluation: 15:00 - Subjective Subjective: dictated Objective - Vital Signs/Intake and Output Vital Signs (last 24 hours): Temp Pulse Resp BP Pulse Ox 98.5 F 94 H 19 152/85 H 99 08/15/18 20:00 08/15/18 21:01 08/15/18 21:01 08/15/18 21:01 08/15/18 21:01 Intake and Output: 08/15/18 08/16/18 18:59 06:59 Intake Total 1080.9 214.1 Output Total 1700 750 Balance -619.1 -535.9 - Medications Medications: Current Medications Acetaminophen (Tylenol 650mg/20.3ml Solution Ud) 975 mg PO Q6H PRN PRN Reason: shivering Last Admin: 08/13/18 13:43 Dose: 975 mg Propofol (Diprivan) 1,000 mg in 100 mls @ 2.041 mls/hr IV .Q24H PRN; Protocol PRN Reason: TITRATE PER MD ORDER Last Titration: 08/15/18 21:19 Dose: 25 mcg/kg/min, 10.206 mls/hr Piperacillin Sod/Tazobactam (Sod 3.375 gm/ Sodium Chloride) 100 mls @ 200 mls/hr IVPB Q8H [facility]; Protocol Last Admin: 08/15/18 18:38 Dose: 200 mls/hr Heparin Sodium/Sodium Chloride (Heparin 01378 Units/250ml 1/2 Normal Saline) 25,000 units in 250 mls @ 7.646 mls/hr IV .Q24H PRN; Protocol PRN Reason: ADJUST RATE PER PROTOCOL Last Titration: 08/15/18 13:03 Dose: 12 units/kg/hr, 9.175 mls/hr Doxycycline Hyclate 100 mg/ (Sodium Chloride) 100 mls @ 100 mls/hr IVPB Q12H [facility]; Protocol Last Admin: 08/15/18 16:01 Dose: 100 mls/hr Insulin Human Regular (Novolin R) 0 unit SC Q6H [facility]; Protocol Last Admin: 08/15/18 18:37 Dose: Not Given Metoprolol Tartrate (Lopressor) 25 mg PO BID [facility] Last Admin: 08/15/18 18:39 Dose: 25 mg Pantoprazole Sodium (Protonix Inj) 40 mg IVP DAILY [facility] Last Admin: 08/15/18 09:53 Dose: 40 mg - Labs Labs: 08/15/18 05:22 08/15/18 05:22 PT 16.8 SECONDS (9.7-12.2) H 08/12/18 13:37 INR 1.5 08/12/18 13:37 APTT 55 SECONDS (21-34) H D 08/15/18 18:57
[2018-08-16] MEDS: Piperacillin/Tazobact 3.375 GM in Sodium Chloride 100 ML IVPB SCH ×3 (01:00→17:15)
[2018-08-16] MEDS: Heparin25000 units/250ml 1/2NS 25,000 UNITS/250 ML BAG IV PRN (01:14)
[2018-08-16] MEDS: Propofol 10 mg/ml 1,000 MG/100 ML VIAL IV PRN ×2 (03:28→15:01)
--- NOTE | 2018-08-16 03:37 | PN ---
DATE: 08/15/2018 SUBJECTIVE: The patient still remains intubated in the ICU. He was seen today. His and son were at the bedside. The nurse told me that they may be trying to extubate him soon, so sounds better. PHYSICAL EXAMINATION: NECK: Supple. LUNGS: Had bilateral scattered rales. HEART: S1, S2. Regular. ABDOMEN: Soft and nontender. No guarding, no rigidity present. EXTREMITIES: Have no edema. He is status post cardiac arrest. White count is 9.1, hemoglobin 8.7, hematocrit 26, and platelet count is 151. His BUN is 26, creatinine is 1.4. Cultures have all been negative, so they may try to extubate him. Today's chest x-ray shows interval worsening in aeration, [id number] edema like pattern, small right pleural effusion, so one needs to follow the input and output reports on this patient. Head CT shows there are no acute findings, so hopefully he will be recuperating and get to his baseline. Shilpa Sandoval MD
[2018-08-16 05:53] LABS: ARTERIAL BLOOD GAS HCO3 28.8 mmol/L (21-28); ARTERIAL BLOOD GAS HEMOGLOBIN 8.7 g/dL (11.7-17.4); ARTERIAL BLOOD GAS O2 SAT 99.7 % (95-98); ARTERIAL BLOOD GAS PCO2 41 mm/Hg (35-45); ARTERIAL BLOOD GAS PH 7.46 (7.35-7.45); ARTERIAL BLOOD GAS PO2 102 mm/Hg (80-100); ARTERIAL BLOOD GAS TCO2 30.5 mmol/L (22-28)
[2018-08-16 06:04] LABS: BASO % 0.5 % (0.0-2.0); EOS # 0.2 K/uL (0.0-0.7); EOS % 1.9 % (0.0-4.0); HEMOGLOBIN 8.9 g/dL (12.0-18.0); LYMPH # 2.3 K/uL (1.0-4.3); LYMPH % 28.8 % (20.0-40.0); MEAN CELL VOLUME 91.2 fL (80.0-94.0); MEAN PLATELET VOLUME 8.4 fL (7.2-11.7); MONO # 0.6 K/uL (0.0-0.8); MONO % 7.7 % (0.0-10.0); NEUT # 4.9 K/uL (1.8-7.0); NEUT % 61.1 % (50.0-75.0); RBC 2.86 Mil/uL (4.40-5.90); RED CELL DISTRIBUTION WIDTH 14.5 % (11.5-14.5); WHITE BLOOD COUNT 8.1 K/uL (4.8-10.8)
[2018-08-16 06:23] LABS: ALT/SGPT 43 U/L (21-72); AST/SGOT 44 U/L (17-59); BLOOD UREA NITROGEN 31 mg/dL (9-20); CALCIUM 7.7 mg/dl (8.6-10.4); GFR NON-AFRICAN AMERICAN 53
[2018-08-16] MEDS: (Novolin R) Insulin Human Regular 100 units/ml vial SC SCH ×3 (06:27→17:18)
--- NOTE | 2018-08-16 08:09 | RAD ---
Chest x-ray single frontal view HISTORY: Intubated. Comparison 08/15/2018 FINDINGS: Endotracheal tube extending into the midthoracic trachea. Left central venous catheter with tip extending to the confluence of the right SVC/axillary junction. Enlarged ectatic aorta with calcification at the aortic knob. Cardiomegaly. Confluent consolidative changes seen within the mid to lower lung zones bilaterally with small to moderate bilateral pleural effusions. Moderate venous congestion. Degenerative changes in the spine. IMPRESSION: Endotracheal tube extending into the midthoracic trachea. Left central venous catheter with tip extending to the confluence of the right SVC/axillary junction. Enlarged ectatic aorta with calcification at the aortic knob. Cardiomegaly. Confluent consolidative changes seen within the mid to lower lung zones bilaterally with small to moderate bilateral pleural effusions. Moderate venous congestion.
[2018-08-16] MEDS ORDERED: Potassium Phosphate 15 MMOLE in Sodium Chloride 0.9% 250 ML IVPB ONE (10:00)
--- NOTE | 2018-08-16 11:21 | CP.CCUPN ---
<Bhargav Amezquita - Last Filed: 08/16/18 11:11> CCU Subjective - Physician Review Subjective (Free Text): PGY-1 Critical Care Progress Note for Dr. Ortiz's service Patient seen and examined at bedside. Patient is sedated, limited ROS because patient intubated. Patient is awake and alert at times. 08/16/18 11:26 Critical Care Time Spent (in minutes): 35 CCU Objective - Vital Signs / Intake & Output Vital Signs (Last 4 hours): Vital Signs Temp Pulse Resp BP Pulse Ox 08/16/18 08:01 79 16 140/81 98 08/16/18 08:00 98.6 F 99 08/16/18 07:13 83 18 162/88 H 99 Intake and Output (Last 8hrs): Intake & Output 08/15/18 08/16/18 08/16/18 22:59 06:59 14:59 Intake Total 737.2 802.9 30.6 Output Total 2050 700 220 Balance -1312.8 102.9 -189.4 Weight 166 lb 12.8 oz Intake: IV 99.0 158.2 Intake, IV Amount 318.2 324.7 30.6 Left Antecubital 73.6 73.6 18.4 Left Distal Port Internal 44.6 51.1 12.2 Jugular Left Proximal Port 200 200 Internal Jugular Tube Feeding 320 320 0 Output: Urine 2049 700 220 Urethral (Villanueva) 0 700 220 Other: # Bowel Movements 1 1 - Physical Exam Head: Positive for: Normocephalic, Other (brusing with ecchymosis of left eye) Extroacular Muscles: Positive for: EOMI Mouth: Positive for: Moist Mucous Membranes, Other (ET tube in place) Respiratory/Chest: Positive for: Good Air Exchange. Negative for: Wheezes Cardiovascular: Positive for: Normal S1, S2, Irregular Rhythm. Negative for: Regular Rate and Rhythm Abdomen: Negative for: Tenderness, Distention Upper Extremity: Positive for: Normal Inspection. Negative for: Cyanosis Lower Extremity: Negative for: Edema Neurological: Negative for: GCS=15 Skin: Positive for: Dry, Normal Color. Negative for: Warm Psychiatric: Positive for: Alert - Medications Active Medications: Active Medications Generic Name Dose Route Start Last Admin Trade Name Freq PRN Reason Stop Dose Admin Aspirin 81 mg 08/16/18 10:00 08/16/18 10:20 Aspirin Chewable PO 81 mg DAILY JESSE Administration Propofol 1,000 mg in 100 mls @ 2.041 mls/hr 08/11/18 19:35 08/16/18 04:46 Diprivan IV 15 mcg/kg/min .Q24H PRN 6.124 mls/hr TITRATE PER MD ORDER Titration Protocol 5 MCG/KG/MIN Piperacillin Sod/Tazobactam 100 mls @ 200 mls/hr 08/12/18 18:00 08/16/18 10:09 Sod 3.375 gm/ Sodium Chloride IVPB 200 mls/hr Q8H JESSE Administration Protocol Heparin Sodium/Sodium Chloride 25,000 units in 250 mls @ 7.646 mls/hr 08/14/18 22:29 08/16/18 01:14 Heparin 33785 Units/250ml 1/2 Normal Saline IV 12 units/kg/hr .Q24H PRN 9.175 mls/hr ADJUST RATE PER PROTOCOL Administration Protocol 10 UNITS/KG/HR Doxycycline Hyclate 100 mg/ 100 mls @ 100 mls/hr 08/15/18 16:00 08/16/18 03:27 Sodium Chloride IVPB 100 mls/hr Q12H JESSE Administration Protocol Potassium Phosphate 15 mmole/ 255 mls @ 42.5 mls/hr 08/16/18 10:00 08/16/18 10:08 Sodium Chloride IVPB 08/16/18 15:59 42.5 mls/hr ONCE ONE Administration Insulin Human Regular 0 unit 08/14/18 00:00 08/16/18 06:27 Novolin R SC Not Given Q6H JESSE Protocol Losartan Potassium 25 mg 08/16/18 10:00 08/16/18 10:19 Cozaar PO 25 mg DAILY JESSE Administration Metoprolol Tartrate 50 mg 08/16/18 10:00 08/16/18 10:19 Lopressor PO 50 mg BID JESSE Administration Pantoprazole Sodium 40 mg 08/11/18 15:30 08/16/18 10:20 Protonix Inj IVP 40 mg DAILY JESSE Administration Rosuvastatin Calcium 5 mg 08/16/18 22:00 Crestor PO HS JESSE - Patient Studies Lab Studies: Microbiology Studies 08/12/18 10:00 Blood Culture - Preliminary Blood-Venous NO GROWTH AFTER 3 DAYS 08/12/18 10:30 Blood Culture - Preliminary Blood-Venous NO GROWTH AFTER 3 DAYS Lab Studies 08/16/18 08/16/18 08/16/18 Range/Units 06:25 05:52 05:52 WBC 8.1 (4.8-10.8) K/uL RBC 2.86 L (4.40-5.90) Mil/uL Hgb 8.9 L (12.0-18.0) g/dL Hct 26.0 L (35.0-51.0) % MCV 91.2 (80.0-94.0) fL MCH 31.0 (27.0-31.0) pg MCHC 34.0 (33.0-37.0) g/dL RDW 14.5 (11.5-14.5) % Plt Count 172 (130-400) K/uL MPV 8.4 (7.2-11.7) fL Neut % (Auto) 61.1 (50.0-75.0) % Lymph % (Auto) 28.8 (20.0-40.0) % [place] % (Auto) 7.7 (0.0-10.0) % Eos % (Auto) 1.9 (0.0-4.0) % Baso % (Auto) 0.5 (0.0-2.0) % Neut # (Auto) 4.9 (1.8-7.0) K/uL Lymph # (Auto) 2.3 (1.0-4.3) K/uL [place] # (Auto) 0.6 (0.0-0.8) K/uL Eos # (Auto) 0.2 (0.0-0.7) K/uL Baso # (Auto) 0.0 (0.0-0.2) K/uL APTT (21-34) SECONDS Puncture Site pCO2 (35-45) mm/Hg pO2 (80-100) mm/Hg HCO3 (21-28) mmol/L ABG pH (7.35-7.45) ABG Total CO2 (22-28) mmol/L ABG O2 Saturation (95-98) % ABG Base Excess (-2.0-3.0) mmol/L ABG Hemoglobin (11.7-17.4) g/dL ABG Carboxyhemoglobin (0.5-1.5) % POC ABG HHb (Measured) (0.0-5.0) % ABG Methemoglobin (0.0-3.0) % Danny Test A-a O2 Difference mm/Hg Respiratory Index Hgb O2 Saturation (95.0-98.0) % Vent Mode Mechanical Rate FiO2 % Tidal Volume PEEP Sodium 145 (132-148) mmol/L Potassium 3.2 L (3.6-5.2) mmol/L Chloride 112 H (98-107) mmol/L Carbon Dioxide 30 (22-30) mmol/L Anion Gap 7 L (10-20) BUN 31 H (9-20) mg/dL Creatinine 1.3 (0.8-1.5) mg/dL Est GFR ( Amer) > 60 Est GFR (Non-Af Amer) 53 POC Glucose (mg/dL) 143 H (65-110) mg/dL Random Glucose 131 H (75-110) mg/dL Calcium 7.7 L (8.6-10.4) mg/dl Phosphorus 2.1 L (2.5-4.5) mg/dL Magnesium 2.1 (1.6-2.3) mg/dL Total Bilirubin 0.6 (0.2-1.3) mg/dL AST 44 (17-59) U/L ALT 43 (21-72) U/L Alkaline Phosphatase 92 (38-126) U/L Total Protein 6.0 L (6.3-8.3) g/dL Albumin 3.0 L (3.5-5.0) g/dL Globulin 3.0 (2.2-3.9) gm/dL Albumin/Globulin Ratio 1.0 (1.0-2.1) 08/16/18 08/16/18 08/15/18 Range/Units 05:14 00:44 23:26 WBC (4.8-10.8) K/uL RBC (4.40-5.90) Mil/uL Hgb (12.0-18.0) g/dL Hct (35.0-51.0) % MCV (80.0-94.0) fL MCH (27.0-31.0) pg MCHC (33.0-37.0) g/dL RDW (11.5-14.5) % Plt Count (130-400) K/uL MPV (7.2-11.7) fL Neut % (Auto) (50.0-75.0) % Lymph % (Auto) (20.0-40.0) % [place] % (Auto) (0.0-10.0) % Eos % (Auto) (0.0-4.0) % Baso % (Auto) (0.0-2.0) % Neut # (Auto) (1.8-7.0) K/uL Lymph # (Auto) (1.0-4.3) K/uL [place] # (Auto) (0.0-0.8) K/uL Eos # (Auto) (0.0-0.7) K/uL Baso # (Auto) (0.0-0.2) K/uL APTT 58 H (21-34) SECONDS Puncture Site Rb pCO2 41 (35-45) mm/Hg pO2 102 H (80-100) mm/Hg HCO3 28.8 H (21-28) mmol/L ABG pH 7.46 H (7.35-7.45) ABG Total CO2 30.5 H (22-28) mmol/L ABG O2 Saturation 99.7 H (95-98) % ABG Base Excess 4.9 H (-2.0-3.0) mmol/L ABG Hemoglobin 8.7 L (11.7-17.4) g/dL ABG Carboxyhemoglobin 2.1 H (0.5-1.5) % POC ABG HHb (Measured) 0.3 (0.0-5.0) % ABG Methemoglobin 1.5 (0.0-3.0) % Danny Test Na A-a O2 Difference 168.0 mm/Hg Respiratory Index 1.6 Hgb O2 Saturation 96.0 (95.0-98.0) % Vent Mode A/c Mechanical Rate 16 FiO2 45.0 % Tidal Volume 500 PEEP 5 Sodium (132-148) mmol/L Potassium (3.6-5.2) mmol/L Chloride (98-107) mmol/L Carbon Dioxide (22-30) mmol/L Anion Gap (10-20) BUN (9-20) mg/dL Creatinine (0.8-1.5) mg/dL Est GFR ( Amer) Est GFR (Non-Af Amer) POC Glucose (mg/dL) 135 H (65-110) mg/dL Random Glucose (75-110) mg/dL Calcium (8.6-10.4) mg/dl Phosphorus (2.5-4.5) mg/dL Magnesium (1.6-2.3) mg/dL Total Bilirubin (0.2-1.3) mg/dL AST (17-59) U/L ALT (21-72) U/L Alkaline Phosphatase (38-126) U/L Total Protein (6.3-8.3) g/dL Albumin (3.5-5.0) g/dL Globulin (2.2-3.9) gm/dL Albumin/Globulin Ratio (1.0-2.1) 08/15/18 08/15/18 08/15/18 Range/Units 18:57 17:37 12:30 WBC (4.8-10.8) K/uL RBC (4.40-5.90) Mil/uL Hgb (12.0-18.0) g/dL Hct (35.0-51.0) % MCV (80.0-94.0) fL MCH (27.0-31.0) pg MCHC (33.0-37.0) g/dL RDW (11.5-14.5) % Plt Count (130-400) K/uL MPV (7.2-11.7) fL Neut % (Auto) (50.0-75.0) % Lymph % (Auto) (20.0-40.0) % [place] % (Auto) (0.0-10.0) % Eos % (Auto) (0.0-4.0) % Baso % (Auto) (0.0-2.0) % Neut # (Auto) (1.8-7.0) K/uL Lymph # (Auto) (1.0-4.3) K/uL [place] # (Auto) (0.0-0.8) K/uL Eos # (Auto) (0.0-0.7) K/uL Baso # (Auto) (0.0-0.2) K/uL APTT 55 H D 42 H D (21-34) SECONDS Puncture Site pCO2 (35-45) mm/Hg pO2 (80-100) mm/Hg HCO3 (21-28) mmol/L ABG pH (7.35-7.45) ABG Total CO2 (22-28) mmol/L ABG O2 Saturation (95-98) % ABG Base Excess (-2.0-3.0) mmol/L ABG Hemoglobin (11.7-17.4) g/dL ABG Carboxyhemoglobin (0.5-1.5) % POC ABG HHb (Measured) (0.0-5.0) % ABG Methemoglobin (0.0-3.0) % Danny Test A-a O2 Difference mm/Hg Respiratory Index Hgb O2 Saturation (95.0-98.0) % Vent Mode Mechanical Rate FiO2 % Tidal Volume PEEP Sodium (132-148) mmol/L Potassium (3.6-5.2) mmol/L Chloride (98-107) mmol/L Carbon Dioxide (22-30) mmol/L Anion Gap (10-20) BUN (9-20) mg/dL Creatinine (0.8-1.5) mg/dL Est GFR ( Amer) Est GFR (Non-Af Amer) POC Glucose (mg/dL) 144 H (65-110) mg/dL Random Glucose (75-110) mg/dL Calcium (8.6-10.4) mg/dl Phosphorus (2.5-4.5) mg/dL Magnesium (1.6-2.3) mg/dL Total Bilirubin (0.2-1.3) mg/dL AST (17-59) U/L ALT (21-72) U/L Alkaline Phosphatase (38-126) U/L Total Protein (6.3-8.3) g/dL Albumin (3.5-5.0) g/dL Globulin (2.2-3.9) gm/dL Albumin/Globulin Ratio (1.0-2.1) 08/15/18 Range/Units 11:14 WBC (4.8-10.8) K/uL RBC (4.40-5.90) Mil/uL Hgb (12.0-18.0) g/dL Hct (35.0-51.0) % MCV (80.0-94.0) fL MCH (27.0-31.0) pg MCHC (33.0-37.0) g/dL RDW (11.5-14.5) % Plt Count (130-400) K/uL MPV (7.2-11.7) fL Neut % (Auto) (50.0-75.0) % Lymph % (Auto) (20.0-40.0) % [place] % (Auto) (0.0-10.0) % Eos % (Auto) (0.0-4.0) % Baso % (Auto) (0.0-2.0) % Neut # (Auto) (1.8-7.0) K/uL Lymph # (Auto) (1.0-4.3) K/uL [place] # (Auto) (0.0-0.8) K/uL Eos # (Auto) (0.0-0.7) K/uL Baso # (Auto) (0.0-0.2) K/uL APTT (21-34) SECONDS Puncture Site pCO2 (35-45) mm/Hg pO2 (80-100) mm/Hg HCO3 (21-28) mmol/L ABG pH (7.35-7.45) ABG Total CO2 (22-28) mmol/L ABG O2 Saturation (95-98) % ABG Base Excess (-2.0-3.0) mmol/L ABG Hemoglobin (11.7-17.4) g/dL ABG Carboxyhemoglobin (0.5-1.5) % POC ABG HHb (Measured) (0.0-5.0) % ABG Methemoglobin (0.0-3.0) % Danny Test A-a O2 Difference mm/Hg Respiratory Index Hgb O2 Saturation (95.0-98.0) % Vent Mode Mechanical Rate FiO2 % Tidal Volume PEEP Sodium (132-148) mmol/L Potassium (3.6-5.2) mmol/L Chloride (98-107) mmol/L Carbon Dioxide (22-30) mmol/L Anion Gap (10-20) BUN (9-20) mg/dL Creatinine (0.8-1.5) mg/dL Est GFR ( Amer) Est GFR (Non-Af Amer) POC Glucose (mg/dL) 153 H (65-110) mg/dL Random Glucose (75-110) mg/dL Calcium (8.6-10.4) mg/dl Phosphorus (2.5-4.5) mg/dL Magnesium (1.6-2.3) mg/dL Total Bilirubin (0.2-1.3) mg/dL AST (17-59) U/L ALT (21-72) U/L Alkaline Phosphatase (38-126) U/L Total Protein (6.3-8.3) g/dL Albumin (3.5-5.0) g/dL Globulin (2.2-3.9) gm/dL Albumin/Globulin Ratio (1.0-2.1) Laboratory Results - last 24 hr 08/15/18 08/15/18 08/15/18 11:14 12:30 17:37 WBC RBC Hgb Hct MCV MCH MCHC RDW Plt Count MPV Neut % (Auto) Lymph % (Auto) [place] % (Auto) Eos % (Auto) Baso % (Auto) Neut # (Auto) Lymph # (Auto) [place] # (Auto) Eos # (Auto) Baso # (Auto) APTT 42 H D Puncture Site pCO2 pO2 HCO3 ABG pH ABG Total CO2 ABG O2 Saturation ABG Base Excess ABG Hemoglobin ABG Carboxyhemoglobin POC ABG HHb (Measured) ABG Methemoglobin Danny Test A-a O2 Difference Respiratory Index Hgb O2 Saturation Vent Mode Mechanical Rate FiO2 Tidal Volume PEEP Sodium Potassium Chloride Carbon Dioxide Anion Gap BUN Creatinine Est GFR ( Amer) Est GFR (Non-Af Amer) POC Glucose (mg/dL) 153 H 144 H Random Glucose Calcium Phosphorus Magnesium Total Bilirubin AST ALT Alkaline Phosphatase Total Protein Albumin Globulin Albumin/Globulin Ratio 08/15/18 08/15/18 08/16/18 18:57 23:26 00:44 WBC RBC Hgb Hct MCV MCH MCHC RDW Plt Count MPV Neut % (Auto) Lymph % (Auto) [place] % (Auto) Eos % (Auto) Baso % (Auto) Neut # (Auto) Lymph # (Auto) [place] # (Auto) Eos # (Auto) Baso # (Auto) APTT 55 H D 58 H Puncture Site pCO2 pO2 HCO3 ABG pH ABG Total CO2 ABG O2 Saturation ABG Base Excess ABG Hemoglobin ABG Carboxyhemoglobin POC ABG HHb (Measured) ABG Methemoglobin Danny Test A-a O2 Difference Respiratory Index Hgb O2 Saturation Vent Mode Mechanical Rate FiO2 Tidal Volume PEEP Sodium Potassium Chloride Carbon Dioxide Anion Gap BUN Creatinine Est GFR ( Amer) Est GFR (Non-Af Amer) POC Glucose (mg/dL) 135 H Random Glucose Calcium Phosphorus Magnesium Total Bilirubin AST ALT Alkaline Phosphatase Total Protein Albumin Globulin Albumin/Globulin Ratio 08/16/18 08/16/18 08/16/18 05:14 05:52 05:52 WBC 8.1 RBC 2.86 L Hgb 8.9 L Hct 26.0 L MCV 91.2 MCH 31.0 MCHC 34.0 RDW 14.5 Plt Count 172 MPV 8.4 Neut % (Auto) 61.1 Lymph % (Auto) 28.8 [place] % (Auto) 7.7 Eos % (Auto) 1.9 Baso % (Auto) 0.5 Neut # (Auto) 4.9 Lymph # (Auto) 2.3 [place] # (Auto) 0.6 Eos # (Auto) 0.2 Baso # (Auto) 0.0 APTT Puncture Site Rb pCO2 41 pO2 102 H HCO3 28.8 H ABG pH 7.46 H ABG Total CO2 30.5 H ABG O2 Saturation 99.7 H ABG Base Excess 4.9 H ABG Hemoglobin 8.7 L ABG Carboxyhemoglobin 2.1 H POC ABG HHb (Measured) 0.3 ABG Methemoglobin 1.5 Danny Test Na A-a O2 Difference 168.0 Respiratory Index 1.6 Hgb O2 Saturation 96.0 Vent Mode A/c Mechanical Rate 16 FiO2 45.0 Tidal Volume 500 PEEP 5 Sodium 145 Potassium 3.2 L Chloride 112 H Carbon Dioxide 30 Anion Gap 7 L BUN 31 H Creatinine 1.3 Est GFR ( Amer) > 60 Est GFR (Non-Af Amer) 53 POC Glucose (mg/dL) Random Glucose 131 H Calcium 7.7 L Phosphorus 2.1 L Magnesium 2.1 Total Bilirubin 0.6 AST 44 ALT 43 Alkaline Phosphatase 92 Total Protein 6.0 L Albumin 3.0 L Globulin 3.0 Albumin/Globulin Ratio 1.0 08/16/18 06:25 WBC RBC Hgb Hct MCV MCH MCHC RDW Plt Count MPV Neut % (Auto) Lymph % (Auto) [place] % (Auto) Eos % (Auto) Baso % (Auto) Neut # (Auto) Lymph # (Auto) [place] # (Auto) Eos # (Auto) Baso # (Auto) APTT Puncture Site pCO2 pO2 HCO3 ABG pH ABG Total CO2 ABG O2 Saturation ABG Base Excess ABG Hemoglobin ABG Carboxyhemoglobin POC ABG HHb (Measured) ABG Methemoglobin Danny Test A-a O2 Difference Respiratory Index Hgb O2 Saturation Vent Mode Mechanical Rate FiO2 Tidal Volume PEEP Sodium Potassium Chloride Carbon Dioxide Anion Gap BUN Creatinine Est GFR ( Amer) Est GFR (Non-Af Amer) POC Glucose (mg/dL) 143 H Random Glucose Calcium Phosphorus Magnesium Total Bilirubin AST ALT Alkaline Phosphatase Total Protein Albumin Globulin Albumin/Globulin Ratio Radiology Impressions: Radiology Impressions Head CT 08/14/18 08:00 IMPRESSION: There are no acute findings Chest X-Ray 08/15/18 07:00 IMPRESSION: Endotracheal tube. Nasogastric tube. Interval worsening of aeration with moderate to severe edema like pattern. Small right pleural effusion. Cardiomegaly. Chest X-Ray 08/16/18 06:00 IMPRESSION: Endotracheal tube extending into the midthoracic trachea. Left central venous catheter with tip extending to the confluence of the right SVC/axillary junction. Enlarged ectatic aorta with calcification at the aortic knob. Cardiomegaly. Confluent consolidative changes seen within the mid to lower lung zones bilaterally with small to moderate bilateral pleural effusions. Moderate venous congestion. Fingerstick Blood Sugar Results: 143 Review of Systems - Review of Systems Systems not reviewed;Unavailable: Intubated Critical Care Progress Note - Ventilator Checklist Head of Bed 30 Degrees: Yes Daily Sedation Vacation: Yes Daily Assessment of Readiness to Wean: Yes Daily Spontaneous Breathing Trial: Yes PUD Prophalyxis: Yes DVT Prophylaxis: Yes Oral Care with Chlorhexidine Gluconate {CHG}: Yes - Vent Settings MODE:: PRVC TIDAL VOLUME:: 500 RESP RATE:: 18 FIO2:: 45 PEEP:: 5 - Extremities/Vascular Does the Patient have a Villanueva Catheter?: Yes Does the Patient need a Villanueva Catheter?: Yes Catheter Insertion Criteria: Need for accurate measurement of output in critically ill patient - Prophylaxis GI Prophylaxis GI: PPI - Prophylaxis DVT Prophylaxis DVT: Heparin SQ Assessment/Plan - Assessment and Plan (Free Text) Assessment: Patient is an 83 yo male w/ PMH of Alzheimer's disease, CAD, atrial fibrillation, hypertension, hypercholesterolemia, dementia admitted to ICU s/p intubated and cardiac arrest in field. CT head pending, initial trop negative. Dr. Dupont reviewed EKG and stated no code heart at this time. Neuro Intubated, On propofol drip; patient awake and alert CT head shows remote vs chronic infarction in frontal lobe Pulm Intubated and on ventilator with ET tube in place CXR shows pulm edema Extubation plans following cardiac plan update CV Cardiac Arrest in field- rosc achieved EKG in field showed ST elevation, EKG in ED showed Afib w/ diffuse ST segment changes Code Freeze initiated/completed Echo- severely impaired LV EF (25-30); hypokinesis in the apical septal wall, ischemic cardiomyopathy; mild AR repeat troponins elevated- Dr. Amato requested consult with Conrado- further management as per cardiac team, prior to extubation Heparin drip; Cozaar, Metoprolol, Aspirin, Crestor Tele strip shows patient in Afib GI Protonix; no active issues Endo Q6H accuchecks; ISS Renal no active issues Villanueva for strict Is/Os ID Doxy/Zosyn (08/15 and 08/12 respectively) - concern for aspiration PNA- ID following Disposition: further cardiac arrest management as per cardio (may need cardiac cath); code freeze completed DVT ppx: SCDs, heparin GI ppx: protonix PGY-1 Bhargav Amezquita Medical Management d/w Dr. Ortiz <Juliocesar Ortiz - Last Filed: 08/16/18 20:37> CCU Subjective - Physician Review Events Since Last Encounter (Free Text): 08/16/18 20:36 During the rounds patient was examined at bedside. With resident clinical evaluation was done. Spoke to the patient's family at bedside in the length. We also tried to call the patient's driver/merchandiser to spoke to them. I also spoke to the current driver/merchandiser. Scheduled to have a possible angiogram tomorrow. Patient is on ventilator. Overall prognosis guarded. Weaning as tolerated. Patient had a history of cardiac arrest now. I agree with the resident notes. We will follow the patient Critical Care Time Spent (in minutes): 45 CCU Objective - Vital Signs / Intake & Output Vital Signs (Last 4 hours): Vital Signs Pulse Resp BP Pulse Ox 08/16/18 19:01 65 18 156/86 H 99 08/16/18 18:01 68 18 152/92 H 100 08/16/18 17:01 84 18 170/94 H 100 Intake and Output (Last 8hrs): Intake & Output 08/16/18 08/16/18 08/16/18 06:59 14:59 22:59 Intake Total 802.9 615.7 521.2 Output Total 700 630 345 Balance 102.9 -14.3 176.2 Weight 166 lb 12.8 oz Intake: IV 158.2 68.8 46 Intake, IV Amount 324.7 386.9 275.2 Left Antecubital 73.6 73.6 46.0 Left Distal Port Internal 51.1 50.8 29.2 Jugular Left Proximal Port 200 262.5 200 Internal Jugular Tube Feeding 320 160 200 Output: Urine 700 630 345 Urethral (Villanueva) 700 630 345 Other: # Bowel Movements 1 1 1 - Medications Active Medications: Active Medications Generic Name Dose Route Start Last Admin Trade Name Freq PRN Reason Stop Dose Admin Aspirin 81 mg 08/16/18 10:00 08/16/18 10:20 Aspirin Chewable PO 81 mg DAILY JESSE Administration Propofol 1,000 mg in 100 mls @ 2.041 mls/hr 08/11/18 19:35 08/16/18 17:17 Diprivan IV 15 mcg/kg/min .Q24H PRN 6.124 mls/hr TITRATE PER MD ORDER Titration Protocol 5 MCG/KG/MIN Piperacillin Sod/Tazobactam 100 mls @ 200 mls/hr 08/12/18 18:00 08/16/18 17:15 Sod 3.375 gm/ Sodium Chloride IVPB 200 mls/hr Q8H JESSE Administration Protocol Heparin Sodium/Sodium Chloride 25,000 units in 250 mls @ 7.646 mls/hr 08/14/18 22:29 08/16/18 01:14 Heparin 27729 Units/250ml 1/2 Normal Saline IV 12 units/kg/hr .Q24H PRN 9.175 mls/hr ADJUST RATE PER PROTOCOL Administration Protocol 10 UNITS/KG/HR Doxycycline Hyclate 100 mg/ 100 mls @ 100 mls/hr 08/15/18 16:00 08/16/18 15:40 Sodium Chloride IVPB 100 mls/hr Q12H JESSE Administration Protocol Insulin Human Regular 0 unit 08/14/18 00:00 08/16/18 17:18 Novolin R SC Not Given Q6H [facility] Protocol Losartan Potassium 25 mg 08/16/18 10:00 08/16/18 10:19 Cozaar PO 25 mg DAILY JESSE Administration Metoprolol Tartrate 50 mg 08/16/18 10:00 08/16/18 17:19 Lopressor PO 50 mg BID JESSE Administration Pantoprazole Sodium 40 mg 08/11/18 15:30 08/16/18 10:20 Protonix Inj IVP 40 mg DAILY JESSE Administration Rosuvastatin Calcium 5 mg 08/16/18 22:00 Crestor PO HS JESSE - Patient Studies Lab Studies: Microbiology Studies 08/12/18 10:00 Blood Culture - Preliminary Blood-Venous NO GROWTH AFTER 4 DAYS 08/12/18 10:30 Blood Culture - Preliminary Blood-Venous NO GROWTH AFTER 4 DAYS Lab Studies 08/16/18 08/16/18 08/16/18 Range/Units 18:08 17:16 11:09 WBC (4.8-10.8) K/uL RBC (4.40-5.90) Mil/uL Hgb (12.0-18.0) g/dL Hct (35.0-51.0) % MCV (80.0-94.0) fL MCH (27.0-31.0) pg MCHC (33.0-37.0) g/dL RDW (11.5-14.5) % Plt Count (130-400) K/uL MPV (7.2-11.7) fL Neut % (Auto) (50.0-75.0) % Lymph % (Auto) (20.0-40.0) % [place] % (Auto) (0.0-10.0) % Eos % (Auto) (0.0-4.0) % Baso % (Auto) (0.0-2.0) % Neut # (Auto) (1.8-7.0) K/uL Lymph # (Auto) (1.0-4.3) K/uL [place] # (Auto) (0.0-0.8) K/uL Eos # (Auto) (0.0-0.7) K/uL Baso # (Auto) (0.0-0.2) K/uL APTT (21-34) SECONDS Puncture Site pCO2 (35-45) mm/Hg pO2 (80-100) mm/Hg HCO3 (21-28) mmol/L ABG pH (7.35-7.45) ABG Total CO2 (22-28) mmol/L ABG O2 Saturation (95-98) % ABG Base Excess (-2.0-3.0) mmol/L ABG Hemoglobin (11.7-17.4) g/dL ABG Carboxyhemoglobin (0.5-1.5) % POC ABG HHb (Measured) (0.0-5.0) % ABG Methemoglobin (0.0-3.0) % Danny Test A-a O2 Difference mm/Hg Respiratory Index Hgb O2 Saturation (95.0-98.0) % Vent Mode Mechanical Rate FiO2 % Tidal Volume PEEP Sodium (132-148) mmol/L Potassium (3.6-5.2) mmol/L Chloride (98-107) mmol/L Carbon Dioxide (22-30) mmol/L Anion Gap (10-20) BUN (9-20) mg/dL Creatinine (0.8-1.5) mg/dL Est GFR ( Amer) Est GFR (Non-Af Amer) POC Glucose (mg/dL) 136 H 135 H (65-110) mg/dL Random Glucose (75-110) mg/dL Calcium (8.6-10.4) mg/dl Phosphorus (2.5-4.5) mg/dL Magnesium (1.6-2.3) mg/dL Total Bilirubin (0.2-1.3) mg/dL AST (17-59) U/L ALT (21-72) U/L Alkaline Phosphatase (38-126) U/L Total Protein (6.3-8.3) g/dL Albumin (3.5-5.0) g/dL Globulin (2.2-3.9) gm/dL Albumin/Globulin Ratio (1.0-2.1) Stool Occult Blood Negative (NEGATIVE) 08/16/18 08/16/18 08/16/18 Range/Units 06:25 05:52 05:52 WBC 8.1 (4.8-10.8) K/uL RBC 2.86 L (4.40-5.90) Mil/uL Hgb 8.9 L (12.0-18.0) g/dL Hct 26.0 L (35.0-51.0) % MCV 91.2 (80.0-94.0) fL MCH 31.0 (27.0-31.0) pg MCHC 34.0 (33.0-37.0) g/dL RDW 14.5 (11.5-14.5) % Plt Count 172 (130-400) K/uL MPV 8.4 (7.2-11.7) fL Neut % (Auto) 61.1 (50.0-75.0) % Lymph % (Auto) 28.8 (20.0-40.0) % [place] % (Auto) 7.7 (0.0-10.0) % Eos % (Auto) 1.9 (0.0-4.0) % Baso % (Auto) 0.5 (0.0-2.0) % Neut # (Auto) 4.9 (1.8-7.0) K/uL Lymph # (Auto) 2.3 (1.0-4.3) K/uL [place] # (Auto) 0.6 (0.0-0.8) K/uL Eos # (Auto) 0.2 (0.0-0.7) K/uL Baso # (Auto) 0.0 (0.0-0.2) K/uL APTT (21-34) SECONDS Puncture Site pCO2 (35-45) mm/Hg pO2 (80-100) mm/Hg HCO3 (21-28) mmol/L ABG pH (7.35-7.45) ABG Total CO2 (22-28) mmol/L ABG O2 Saturation (95-98) % ABG Base Excess (-2.0-3.0) mmol/L ABG Hemoglobin (11.7-17.4) g/dL ABG Carboxyhemoglobin (0.5-1.5) % POC ABG HHb (Measured) (0.0-5.0) % ABG Methemoglobin (0.0-3.0) % Danny Test A-a O2 Difference mm/Hg Respiratory Index Hgb O2 Saturation (95.0-98.0) % Vent Mode Mechanical Rate FiO2 % Tidal Volume PEEP Sodium 145 (132-148) mmol/L Potassium 3.2 L (3.6-5.2) mmol/L Chloride 112 H (98-107) mmol/L Carbon Dioxide 30 (22-30) mmol/L Anion Gap 7 L (10-20) BUN 31 H (9-20) mg/dL Creatinine 1.3 (0.8-1.5) mg/dL Est GFR ( Amer) > 60 Est GFR (Non-Af Amer) 53 POC Glucose (mg/dL) 143 H (65-110) mg/dL Random Glucose 131 H (75-110) mg/dL Calcium 7.7 L (8.6-10.4) mg/dl Phosphorus 2.1 L (2.5-4.5) mg/dL Magnesium 2.1 (1.6-2.3) mg/dL Total Bilirubin 0.6 (0.2-1.3) mg/dL AST 44 (17-59) U/L ALT 43 (21-72) U/L Alkaline Phosphatase 92 (38-126) U/L Total Protein 6.0 L (6.3-8.3) g/dL Albumin 3.0 L (3.5-5.0) g/dL Globulin 3.0 (2.2-3.9) gm/dL Albumin/Globulin Ratio 1.0 (1.0-2.1) Stool Occult Blood (NEGATIVE) 08/16/18 08/16/18 08/15/18 Range/Units 05:14 00:44 23:26 WBC (4.8-10.8) K/uL RBC (4.40-5.90) Mil/uL Hgb (12.0-18.0) g/dL Hct (35.0-51.0) % MCV (80.0-94.0) fL MCH (27.0-31.0) pg MCHC (33.0-37.0) g/dL RDW (11.5-14.5) % Plt Count (130-400) K/uL MPV (7.2-11.7) fL Neut % (Auto) (50.0-75.0) % Lymph % (Auto) (20.0-40.0) % [place] % (Auto) (0.0-10.0) % Eos % (Auto) (0.0-4.0) % Baso % (Auto) (0.0-2.0) % Neut # (Auto) (1.8-7.0) K/uL Lymph # (Auto) (1.0-4.3) K/uL [place] # (Auto) (0.0-0.8) K/uL Eos # (Auto) (0.0-0.7) K/uL Baso # (Auto) (0.0-0.2) K/uL APTT 58 H (21-34) SECONDS Puncture Site Rb pCO2 41 (35-45) mm/Hg pO2 102 H (80-100) mm/Hg HCO3 28.8 H (21-28) mmol/L ABG pH 7.46 H (7.35-7.45) ABG Total CO2 30.5 H (22-28) mmol/L ABG O2 Saturation 99.7 H (95-98) % ABG Base Excess 4.9 H (-2.0-3.0) mmol/L ABG Hemoglobin 8.7 L (11.7-17.4) g/dL ABG Carboxyhemoglobin 2.1 H (0.5-1.5) % POC ABG HHb (Measured) 0.3 (0.0-5.0) % ABG Methemoglobin 1.5 (0.0-3.0) % Danny Test Na A-a O2 Difference 168.0 mm/Hg Respiratory Index 1.6 Hgb O2 Saturation 96.0 (95.0-98.0) % Vent Mode A/c Mechanical Rate 16 FiO2 45.0 % Tidal Volume 500 PEEP 5 Sodium (132-148) mmol/L Potassium (3.6-5.2) mmol/L Chloride (98-107) mmol/L Carbon Dioxide (22-30) mmol/L Anion Gap (10-20) BUN (9-20) mg/dL Creatinine (0.8-1.5) mg/dL Est GFR ( Amer) Est GFR (Non-Af Amer) POC Glucose (mg/dL) 135 H (65-110) mg/dL Random Glucose (75-110) mg/dL Calcium (8.6-10.4) mg/dl Phosphorus (2.5-4.5) mg/dL Magnesium (1.6-2.3) mg/dL Total Bilirubin (0.2-1.3) mg/dL AST (17-59) U/L ALT (21-72) U/L Alkaline Phosphatase (38-126) U/L Total Protein (6.3-8.3) g/dL Albumin (3.5-5.0) g/dL Globulin (2.2-3.9) gm/dL Albumin/Globulin Ratio (1.0-2.1) Stool Occult Blood (NEGATIVE) Laboratory Results - last 24 hr 08/15/18 08/16/18 08/16/18 23:26 00:44 05:14 WBC RBC Hgb Hct MCV MCH MCHC RDW Plt Count MPV Neut % (Auto) Lymph % (Auto) [place] % (Auto) Eos % (Auto) Baso % (Auto) Neut # (Auto) Lymph # (Auto) [place] # (Auto) Eos # (Auto) Baso # (Auto) APTT 58 H Puncture Site Rb pCO2 41 pO2 102 H HCO3 28.8 H ABG pH 7.46 H ABG Total CO2 30.5 H ABG O2 Saturation 99.7 H ABG Base Excess 4.9 H ABG Hemoglobin 8.7 L ABG Carboxyhemoglobin 2.1 H POC ABG HHb (Measured) 0.3 ABG Methemoglobin 1.5 Danny Test Na A-a O2 Difference 168.0 Respiratory Index 1.6 Hgb O2 Saturation 96.0 Vent Mode A/c Mechanical Rate 16 FiO2 45.0 Tidal Volume 500 PEEP 5 Sodium Potassium Chloride Carbon Dioxide Anion Gap BUN Creatinine Est GFR ( Amer) Est GFR (Non-Af Amer) POC Glucose (mg/dL) 135 H Random Glucose Calcium Phosphorus Magnesium Total Bilirubin AST ALT Alkaline Phosphatase Total Protein Albumin Globulin Albumin/Globulin Ratio Stool Occult Blood 08/16/18 08/16/18 08/16/18 05:52 05:52 06:25 WBC 8.1 RBC 2.86 L Hgb 8.9 L Hct 26.0 L MCV 91.2 MCH 31.0 MCHC 34.0 RDW 14.5 Plt Count 172 MPV 8.4 Neut % (Auto) 61.1 Lymph % (Auto) 28.8 [place] % (Auto) 7.7 Eos % (Auto) 1.9 Baso % (Auto) 0.5 Neut # (Auto) 4.9 Lymph # (Auto) 2.3 [place] # (Auto) 0.6 Eos # (Auto) 0.2 Baso # (Auto) 0.0 APTT Puncture Site pCO2 pO2 HCO3 ABG pH ABG Total CO2 ABG O2 Saturation ABG Base Excess ABG Hemoglobin ABG Carboxyhemoglobin POC ABG HHb (Measured) ABG Methemoglobin Danny Test A-a O2 Difference Respiratory Index Hgb O2 Saturation Vent Mode Mechanical Rate FiO2 Tidal Volume PEEP Sodium 145 Potassium 3.2 L Chloride 112 H Carbon Dioxide 30 Anion Gap 7 L BUN 31 H Creatinine 1.3 Est GFR ( Amer) > 60 Est GFR (Non-Af Amer) 53 POC Glucose (mg/dL) 143 H Random Glucose 131 H Calcium 7.7 L Phosphorus 2.1 L Magnesium 2.1 Total Bilirubin 0.6 AST 44 ALT 43 Alkaline Phosphatase 92 Total Protein 6.0 L Albumin 3.0 L Globulin 3.0 Albumin/Globulin Ratio 1.0 Stool Occult Blood 08/16/18 08/16/18 08/16/18 11:09 17:16 18:08 WBC RBC Hgb Hct MCV MCH MCHC RDW Plt Count MPV Neut % (Auto) Lymph % (Auto) [place] % (Auto) Eos % (Auto) Baso % (Auto) Neut # (Auto) Lymph # (Auto) [place] # (Auto) Eos # (Auto) Baso # (Auto) APTT Puncture Site pCO2 pO2 HCO3 ABG pH ABG Total CO2 ABG O2 Saturation ABG Base Excess ABG Hemoglobin ABG Carboxyhemoglobin POC ABG HHb (Measured) ABG Methemoglobin Danny Test A-a O2 Difference Respiratory Index Hgb O2 Saturation Vent Mode Mechanical Rate FiO2 Tidal Volume PEEP Sodium Potassium Chloride Carbon Dioxide Anion Gap BUN Creatinine Est GFR ( Amer) Est GFR (Non-Af Amer) POC Glucose (mg/dL) 135 H 136 H Random Glucose Calcium Phosphorus Magnesium Total Bilirubin AST ALT Alkaline Phosphatase Total Protein Albumin Globulin Albumin/Globulin Ratio Stool Occult Blood Negative Radiology Impressions: Radiology Impressions Chest X-Ray 08/16/18 06:00
--- NOTE | 2018-08-16 11:41 | CON ---
DATE OF CONSULTATION: 08/14/2018 HISTORY OF PRESENT ILLNESS: The patient is a history of diabetes four years ago. The patient was walking when the collapsed on the sidewalk for an unknown period of time. today. She was walking sidewalk. Cardiac arrest was noted initially. She is now though intubated; however, she is awake and follows commands. PAST MEDICAL HISTORY: cardiac arrest. REVIEW OF SYSTEMS: PHYSICAL EXAMINATION: The patient is awake and able to follow commands. She is neurologically doing well at this point compared to initial presentation. However, there is some left-sided weakness and I perceive this could be secondary to stroke. However, . LABORATORY DATA: ASSESSMENT AND PLAN: Magdaleno Smiley MD
--- NOTE | 2018-08-16 11:59 | CP.PCM.PN ---
Subjective - Date & Time of Evaluation Date of Evaluation: 08/16/18 Time of Evaluation: 11:59 - Subjective Subjective: Neurology Follow-Up Note: Mr. Arredondo was evaluated this morning in the ICU. Family present at bedside. Pt is intubated and on sedation, however, he can follow simple commands. Pt is agitated regardless of sedation. When asked if he was in any pain or if he had any complaints he shook his head "no." Chart reviewed. Objective - Vital Signs/Intake and Output Vital Signs (last 24 hours): Temp Pulse Resp BP Pulse Ox 98.6 F 79 16 140/81 98 08/16/18 08:00 08/16/18 08:01 08/16/18 08:01 08/16/18 08:01 08/16/18 08:01 Intake and Output: 08/16/18 08/16/18 06:59 18:59 Intake Total 1091.9 30.6 Output Total 1850 220 Balance -758.1 -189.4 - Medications Medications: Current Medications Aspirin (Aspirin Chewable) 81 mg PO DAILY [facility] Last Admin: 08/16/18 10:20 Dose: 81 mg Propofol (Diprivan) 1,000 mg in 100 mls @ 2.041 mls/hr IV .Q24H PRN; Protocol PRN Reason: TITRATE PER MD ORDER Last Titration: 08/16/18 04:46 Dose: 15 mcg/kg/min, 6.124 mls/hr Piperacillin Sod/Tazobactam (Sod 3.375 gm/ Sodium Chloride) 100 mls @ 200 mls/hr IVPB Q8H [facility]; Protocol Last Admin: 08/16/18 10:09 Dose: 200 mls/hr Heparin Sodium/Sodium Chloride (Heparin 34534 Units/250ml 1/2 Normal Saline) 25,000 units in 250 mls @ 7.646 mls/hr IV .Q24H PRN; Protocol PRN Reason: ADJUST RATE PER PROTOCOL Last Admin: 08/16/18 01:14 Dose: 12 units/kg/hr, 9.175 mls/hr Doxycycline Hyclate 100 mg/ (Sodium Chloride) 100 mls @ 100 mls/hr IVPB Q12H [facility]; Protocol Last Admin: 08/16/18 03:27 Dose: 100 mls/hr Potassium Phosphate 15 mmole/ (Sodium Chloride) 255 mls @ 42.5 mls/hr IVPB ONCE ONE Stop: 08/16/18 15:59 Last Admin: 08/16/18 10:08 Dose: 42.5 mls/hr Insulin Human Regular (Novolin R) 0 unit SC Q6H [facility]; Protocol Last Admin: 08/16/18 11:42 Dose: Not Given Losartan Potassium (Cozaar) 25 mg PO DAILY [facility] Last Admin: 08/16/18 10:19 Dose: 25 mg Metoprolol Tartrate (Lopressor) 50 mg PO BID [facility] Last Admin: 08/16/18 10:19 Dose: 50 mg Pantoprazole Sodium (Protonix Inj) 40 mg IVP DAILY [facility] Last Admin: 08/16/18 10:20 Dose: 40 mg Rosuvastatin Calcium (Crestor) 5 mg PO HS [facility] - Labs Labs: 08/16/18 05:52 08/16/18 05:52 PT 16.8 SECONDS (9.7-12.2) H 08/12/18 13:37 INR 1.5 08/12/18 13:37 APTT 58 SECONDS (21-34) H 08/16/18 00:44 - Constitutional Appears: Agitated, Other (intubated) - Head Exam Head Exam: NORMAL INSPECTION, NORMOCEPHALIC - Eye Exam Eye Exam: EOMI, Normal appearance Pupil Exam: NORMAL ACCOMODATION, PERRL - ENT Exam ENT Exam: Mucous Membranes Moist (intubated ) - Neck Exam Neck Exam: Normal Inspection - Respiratory Exam Respiratory Exam: absent: NORMAL BREATHING PATTERN Additional comments: intubated - Cardiovascular Exam Cardiovascular Exam: Irregular Rhythm (HR 80's). absent: REGULAR RHYTHM - GI/Abdominal Exam Additional comments: tube feeding - Extremities Exam Extremities Exam: absent: Calf Tenderness, Full ROM, Pedal Edema Additional comments: generalized weakness however he is able to move all extremities; on sedation. - Neurological Exam Neurological Exam: Altered, Awake, Reflexes Normal. absent: Oriented x3 Additional comments: Intubated, on sedation; awake, eyes open, follows some simple commands. Shakes and nods head in response to some questions. Moving extremities independently; no rigidity Unable to test strength, fine motor, sensation 2/2 pt's condition. +corneals, + gag. No tremors, no clonus, toes are downgoing. - Psychiatric Exam Additional comments: intubated - Skin Skin Exam: Normal Color Assessment and Plan - Assessment and Plan (Free Text) Assessment: Mr. Arredondo is an 83 y/o M who was admitted after collapsing while out with his . He had ROSC. He remains intubated on sedation, however, is awake and can follow simple commands. His recent imaging shows chronic infarcts; no acute infarct or hemorrhage. Imaging reviewed: -CT Head (08/14/18): There are no acute findings -CT Head (08/11/18):Small hypodensity involving the right frontal vertex appears consistent with chronic or remote infarction. Moderate nonspecific white matter changes. Fluid within the right mastoid air cells; correlate clinically for mastoiditis. Generalized atrophy. Additional incidental findings as above. -ECHO (08/12/18): afib; EF 25-30% -Continue ASA and statin -PT/OT when medically stable -Cardiology on board -Continue current ICU management -Notify neuro team of any change in pt's condition. We will continue to follow this pt. Case discussed with Dr. Willett
--- NOTE | 2018-08-16 12:24 | CP.PCM.PN ---
Subjective - Date & Time of Evaluation Date of Evaluation: 08/16/18 Time of Evaluation: 12:24 - Subjective Subjective: Patient seen and examined No events overnight Objective - Vital Signs/Intake and Output Vital Signs (last 24 hours): Temp Pulse Resp BP Pulse Ox 98.2 F 69 18 159/91 H 100 08/16/18 12:00 08/16/18 12:01 08/16/18 12:01 08/16/18 12:01 08/16/18 12:01 Intake and Output: 08/16/18 08/16/18 06:59 18:59 Intake Total 1091.9 317.4 Output Total 1850 220 Balance -758.1 97.4 - Medications Medications: Current Medications Aspirin (Aspirin Chewable) 81 mg PO DAILY [facility] Last Admin: 08/16/18 10:20 Dose: 81 mg Propofol (Diprivan) 1,000 mg in 100 mls @ 2.041 mls/hr IV .Q24H PRN; Protocol PRN Reason: TITRATE PER MD ORDER Last Titration: 08/16/18 04:46 Dose: 15 mcg/kg/min, 6.124 mls/hr Piperacillin Sod/Tazobactam (Sod 3.375 gm/ Sodium Chloride) 100 mls @ 200 mls/hr IVPB Q8H [facility]; Protocol Last Admin: 08/16/18 10:09 Dose: 200 mls/hr Heparin Sodium/Sodium Chloride (Heparin 79342 Units/250ml 1/2 Normal Saline) 25,000 units in 250 mls @ 7.646 mls/hr IV .Q24H PRN; Protocol PRN Reason: ADJUST RATE PER PROTOCOL Last Admin: 08/16/18 01:14 Dose: 12 units/kg/hr, 9.175 mls/hr Doxycycline Hyclate 100 mg/ (Sodium Chloride) 100 mls @ 100 mls/hr IVPB Q12H [facility]; Protocol Last Admin: 08/16/18 03:27 Dose: 100 mls/hr Potassium Phosphate 15 mmole/ (Sodium Chloride) 255 mls @ 42.5 mls/hr IVPB ONCE ONE Stop: 08/16/18 15:59 Last Admin: 08/16/18 10:08 Dose: 42.5 mls/hr Insulin Human Regular (Novolin R) 0 unit SC Q6H [facility]; Protocol Last Admin: 08/16/18 11:42 Dose: Not Given Losartan Potassium (Cozaar) 25 mg PO DAILY [facility] Last Admin: 08/16/18 10:19 Dose: 25 mg Metoprolol Tartrate (Lopressor) 50 mg PO BID [facility] Last Admin: 08/16/18 10:19 Dose: 50 mg Pantoprazole Sodium (Protonix Inj) 40 mg IVP DAILY [facility] Last Admin: 08/16/18 10:20 Dose: 40 mg Rosuvastatin Calcium (Crestor) 5 mg PO HS [facility] - Labs Labs: 08/16/18 05:52 08/16/18 05:52 PT 16.8 SECONDS (9.7-12.2) H 08/12/18 13:37 INR 1.5 08/12/18 13:37 APTT 58 SECONDS (21-34) H 08/16/18 00:44 - Head Exam Head Exam: NORMAL INSPECTION - Eye Exam Eye Exam: Normal appearance - ENT Exam ENT Exam: Mucous Membranes Moist - Respiratory Exam Respiratory Exam: Clear to Ausculation Bilateral - Cardiovascular Exam Cardiovascular Exam: REGULAR RHYTHM, +S1, +S2 - GI/Abdominal Exam GI & Abdominal Exam: Soft, Normal Bowel Sounds Assessment and Plan (1) Cardiac arrest Status: Acute (2) Respiratory arrest Status: Acute (3) Congestive heart failure Status: Acute - Assessment and Plan (Free Text) Plan: Continue full vent support Continue antibiotics Anoxic brain injury w/u in progress NGT feeds Supportive care DVT/GI prophalaxis
[2018-08-16] MEDS ORDERED: Potassium Chloride 10 mEq ER Tab PO STA (13:25)
--- NOTE | 2018-08-16 13:31 | PQF ---
PROVIDER RESPONSE TEXT: Acute on Chronic systolic CHF REVIEWER QUERY TEXT: CHF Acuity and Type Congestive Heart Failure is documented in the Medical Record. Please document the type and acuity (in cludes probable or suspected) Such as: Also please document the underlying cause of the CHF (includes probable or suspected) The patient's Clinical Indicators include: ?83 y/o male is brought in by EMS after found him collapsed on the sidewalk. Patient was found t o be in cardiac arrest. CPR initiated and patient got one defibrillation with spontaneous return of v ital signs. Patient was unresponsive and intubated without sedation?. Total Creatine Kinase: 1050 - CK-MB: 25.1 - Troponin I: 2.3700/2.2100 ECHO: Left ventricle ejection fraction is severely impaired. The Ejection Fraction is 25-30%. There is hypokinesis in the apical septal wall.Ischemic cardiomyopathy. Transmitral Doppler flow pattern is Grade I-abnormal relaxation pattern.A Fib There is mild aortic r egurgitation. Mitral regurgitation is mild. Clinical documentation matching with Acute on chronic systolic CHF, please consider verify and docume nt it, if agree. Query created by: Dagoberto Wade on 08/13/2018 5:23 PM Electronically signed by: Aydee HERNANDEZ 08/16/2018 1:28 PM
--- NOTE | 2018-08-16 14:42 | CARD ---
APPROVED REPORT Date of service: 08/11/2018 EKG Measurement Heart [id number] <Conclusion> Atrial fibrillation with rapid ventricular response Left axis deviation Nonspecific intraventricular block Abnormal QRS-T angle, consider primary T wave abnormality Abnormal ECG
--- NOTE | 2018-08-16 15:12 | CP.PCM.PN ---
Subjective - Date & Time of Evaluation Date of Evaluation: 08/16/18 Time of Evaluation: 15:10 - Subjective Subjective: dictated Objective - Vital Signs/Intake and Output Vital Signs (last 24 hours): Temp Pulse Resp BP Pulse Ox 98.2 F 61 18 145/79 99 08/16/18 12:00 08/16/18 14:01 08/16/18 14:01 08/16/18 14:01 08/16/18 14:01 Intake and Output: 08/16/18 08/16/18 06:59 18:59 Intake Total 1091.9 648.6 Output Total 1850 220 Balance -758.1 428.6 - Medications Medications: Current Medications Aspirin (Aspirin Chewable) 81 mg PO DAILY [facility] Last Admin: 08/16/18 10:20 Dose: 81 mg Propofol (Diprivan) 1,000 mg in 100 mls @ 2.041 mls/hr IV .Q24H PRN; Protocol PRN Reason: TITRATE PER MD ORDER Last Admin: 08/16/18 15:01 Dose: 15 mcg/kg/min, 6.124 mls/hr Piperacillin Sod/Tazobactam (Sod 3.375 gm/ Sodium Chloride) 100 mls @ 200 mls/hr IVPB Q8H [facility]; Protocol Last Admin: 08/16/18 10:09 Dose: 200 mls/hr Heparin Sodium/Sodium Chloride (Heparin 57080 Units/250ml 1/2 Normal Saline) 25,000 units in 250 mls @ 7.646 mls/hr IV .Q24H PRN; Protocol PRN Reason: ADJUST RATE PER PROTOCOL Last Admin: 08/16/18 01:14 Dose: 12 units/kg/hr, 9.175 mls/hr Doxycycline Hyclate 100 mg/ (Sodium Chloride) 100 mls @ 100 mls/hr IVPB Q12H [facility]; Protocol Last Admin: 08/16/18 03:27 Dose: 100 mls/hr Potassium Phosphate 15 mmole/ (Sodium Chloride) 255 mls @ 42.5 mls/hr IVPB ONCE ONE Stop: 08/16/18 15:59 Last Admin: 08/16/18 10:08 Dose: 42.5 mls/hr Insulin Human Regular (Novolin R) 0 unit SC Q6H [facility]; Protocol Last Admin: 08/16/18 11:42 Dose: Not Given Losartan Potassium (Cozaar) 25 mg PO DAILY [facility] Last Admin: 08/16/18 10:19 Dose: 25 mg Metoprolol Tartrate (Lopressor) 50 mg PO BID [facility] Last Admin: 08/16/18 10:19 Dose: 50 mg Pantoprazole Sodium (Protonix Inj) 40 mg IVP DAILY [facility] Last Admin: 08/16/18 10:20 Dose: 40 mg Rosuvastatin Calcium (Crestor) 5 mg PO [facility] - Labs Labs: 08/16/18 05:52 08/16/18 05:52 PT 16.8 SECONDS (9.7-12.2) H 08/12/18 13:37 INR 1.5 08/12/18 13:37 APTT 58 SECONDS (21-34) H 08/16/18 00:44
--- NOTE | 2018-08-16 18:17 | CP.PCM.PN ---
Subjective - Date & Time of Evaluation Date of Evaluation: 08/16/18 Time of Evaluation: 16:00 - Subjective Subjective: dictated Objective - Vital Signs/Intake and Output Vital Signs (last 24 hours): Temp Pulse Resp BP Pulse Ox 98.2 F 69 18 175/78 H 99 08/16/18 16:00 08/16/18 15:11 08/16/18 15:11 08/16/18 15:11 08/16/18 16:00 Intake and Output: 08/16/18 08/16/18 06:59 18:59 Intake Total 1091.9 790.6 Output Total 1850 220 Balance -758.1 570.6 - Medications Medications: Current Medications Aspirin (Aspirin Chewable) 81 mg PO DAILY [facility] Last Admin: 08/16/18 10:20 Dose: 81 mg Propofol (Diprivan) 1,000 mg in 100 mls @ 2.041 mls/hr IV .Q24H PRN; Protocol PRN Reason: TITRATE PER MD ORDER Last Titration: 08/16/18 17:17 Dose: 15 mcg/kg/min, 6.124 mls/hr Piperacillin Sod/Tazobactam (Sod 3.375 gm/ Sodium Chloride) 100 mls @ 200 mls/hr IVPB Q8H [facility]; Protocol Last Admin: 08/16/18 17:15 Dose: 200 mls/hr Heparin Sodium/Sodium Chloride (Heparin 78523 Units/250ml 1/2 Normal Saline) 25,000 units in 250 mls @ 7.646 mls/hr IV .Q24H PRN; Protocol PRN Reason: ADJUST RATE PER PROTOCOL Last Admin: 08/16/18 01:14 Dose: 12 units/kg/hr, 9.175 mls/hr Doxycycline Hyclate 100 mg/ (Sodium Chloride) 100 mls @ 100 mls/hr IVPB Q12H [facility]; Protocol Last Admin: 08/16/18 15:40 Dose: 100 mls/hr Insulin Human Regular (Novolin R) 0 unit SC Q6H [facility]; Protocol Last Admin: 08/16/18 17:18 Dose: Not Given Losartan Potassium (Cozaar) 25 mg PO DAILY [facility] Last Admin: 08/16/18 10:19 Dose: 25 mg Metoprolol Tartrate (Lopressor) 50 mg PO BID [facility] Last Admin: 08/16/18 17:19 Dose: 50 mg Pantoprazole Sodium (Protonix Inj) 40 mg IVP DAILY [facility] Last Admin: 08/16/18 10:20 Dose: 40 mg Rosuvastatin Calcium (Crestor) 5 mg PO HS [facility] - Labs Labs: 08/16/18 05:52 08/16/18 05:52 PT 16.8 SECONDS (9.7-12.2) H 08/12/18 13:37 INR 1.5 08/12/18 13:37 APTT 58 SECONDS (21-34) H 08/16/18 00:44
--- NOTE | 2018-08-16 18:46 | CP.PCM.PN ---
Subjective - Date & Time of Evaluation Date of Evaluation: 08/16/18 Time of Evaluation: 12:00 - Subjective Subjective: clinically same Objective - Vital Signs/Intake and Output Vital Signs (last 24 hours): Temp Pulse Resp BP Pulse Ox 98.2 F 69 18 175/78 H 99 08/16/18 16:00 08/16/18 15:11 08/16/18 15:11 08/16/18 15:11 08/16/18 16:00 Intake and Output: 08/16/18 08/16/18 06:59 18:59 Intake Total 1091.9 790.6 Output Total 1850 220 Balance -758.1 570.6 - Medications Medications: Current Medications Aspirin (Aspirin Chewable) 81 mg PO DAILY [facility] Last Admin: 08/16/18 10:20 Dose: 81 mg Propofol (Diprivan) 1,000 mg in 100 mls @ 2.041 mls/hr IV .Q24H PRN; Protocol PRN Reason: TITRATE PER MD ORDER Last Titration: 08/16/18 17:17 Dose: 15 mcg/kg/min, 6.124 mls/hr Piperacillin Sod/Tazobactam (Sod 3.375 gm/ Sodium Chloride) 100 mls @ 200 mls/hr IVPB Q8H [facility]; Protocol Last Admin: 08/16/18 17:15 Dose: 200 mls/hr Heparin Sodium/Sodium Chloride (Heparin 59499 Units/250ml 1/2 Normal Saline) 25,000 units in 250 mls @ 7.646 mls/hr IV .Q24H PRN; Protocol PRN Reason: ADJUST RATE PER PROTOCOL Last Admin: 08/16/18 01:14 Dose: 12 units/kg/hr, 9.175 mls/hr Doxycycline Hyclate 100 mg/ (Sodium Chloride) 100 mls @ 100 mls/hr IVPB Q12H [facility]; Protocol Last Admin: 08/16/18 15:40 Dose: 100 mls/hr Insulin Human Regular (Novolin R) 0 unit SC Q6H [facility]; Protocol Last Admin: 08/16/18 17:18 Dose: Not Given Losartan Potassium (Cozaar) 25 mg PO DAILY [facility] Last Admin: 08/16/18 10:19 Dose: 25 mg Metoprolol Tartrate (Lopressor) 50 mg PO BID [facility] Last Admin: 08/16/18 17:19 Dose: 50 mg Pantoprazole Sodium (Protonix Inj) 40 mg IVP DAILY [facility] Last Admin: 08/16/18 10:20 Dose: 40 mg Rosuvastatin Calcium (Crestor) 5 mg PO HS [facility] - Labs Labs: 08/16/18 05:52 08/16/18 05:52 PT 16.8 SECONDS (9.7-12.2) H 08/12/18 13:37 INR 1.5 08/12/18 13:37 APTT 58 SECONDS (21-34) H 08/16/18 00:44
--- NOTE | 2018-08-16 23:01 | PN ---
DATE: 08/16/2018 SUBJECTIVE: The patient remains intubated. His family is at the bedside. He is sedated and unresponsive on medications. I thought he would be extubated today; however, he remains intubated. PHYSICAL EXAMINATION VITAL SIGNS: T-max is 98.6, pulse 79, blood pressure 140/81, respirations 16, saturation 98. His blood pressure was increasing up to 101. The family was concerned and the nurse was informed and she was going to discuss with the primary. Otherwise, there is no change. NECK: Remains supple. LUNGS: Clear. Occasional wheeze. HEART: S1 and S2 irregularly irregular. ABDOMEN: Soft, nontender. No guarding, no rigidity present. EXTREMITIES: No edema. LABORATORY DATA: Labs are noted. Labs show white count is 8.1 today, hemoglobin is 8.9. He is anemic. ABG was done, which showed pH of 7.46, pCO2 was 28.8 and pO2 was 102 . ASSESSMENT AND PLAN: The patient remains with acute respiratory failure. He came here after a fall. CAT scan did not show any acute infarct. The patient is being followed by the neurologist as well as the improvement advisor. Last x-ray shows confluent consolidative changes seen within the mid to the lower lung zones bilaterally with [id number] bilateral pleural effusion which could be sputum has normal juju. We will follow. Shilpa Sandoval MD
--- NOTE | 2018-08-16 23:45 | CP.PCM.PN ---
Objective - Vital Signs/Intake and Output Vital Signs (last 24 hours): Temp Pulse Resp BP Pulse Ox 98.2 F 65 18 156/86 H 99 08/16/18 16:00 08/16/18 19:01 08/16/18 19:01 08/16/18 19:01 08/16/18 19:01 Intake and Output: 08/16/18 08/17/18 18:59 06:59 Intake Total 1081.6 55.3 Output Total 905 70 Balance 176.6 -14.7 - Medications Medications: Current Medications Aspirin (Aspirin Chewable) 81 mg PO DAILY [facility] Last Admin: 08/16/18 10:20 Dose: 81 mg Propofol (Diprivan) 1,000 mg in 100 mls @ 2.041 mls/hr IV .Q24H PRN; Protocol PRN Reason: TITRATE PER MD ORDER Last Titration: 08/16/18 17:17 Dose: 15 mcg/kg/min, 6.124 mls/hr Piperacillin Sod/Tazobactam (Sod 3.375 gm/ Sodium Chloride) 100 mls @ 200 mls/hr IVPB Q8H [facility]; Protocol Last Admin: 08/16/18 17:15 Dose: 200 mls/hr Heparin Sodium/Sodium Chloride (Heparin 66705 Units/250ml 1/2 Normal Saline) 25,000 units in 250 mls @ 7.646 mls/hr IV .Q24H PRN; Protocol PRN Reason: ADJUST RATE PER PROTOCOL Last Admin: 08/16/18 01:14 Dose: 12 units/kg/hr, 9.175 mls/hr Doxycycline Hyclate 100 mg/ (Sodium Chloride) 100 mls @ 100 mls/hr IVPB Q12H [facility]; Protocol Last Admin: 08/16/18 15:40 Dose: 100 mls/hr Insulin Human Regular (Novolin R) 0 unit SC Q6H [facility]; Protocol Last Admin: 08/16/18 17:18 Dose: Not Given Losartan Potassium (Cozaar) 25 mg PO DAILY [facility] Last Admin: 08/16/18 10:19 Dose: 25 mg Metoprolol Tartrate (Lopressor) 50 mg PO BID [facility] Last Admin: 08/16/18 17:19 Dose: 50 mg Pantoprazole Sodium (Protonix Inj) 40 mg IVP DAILY [facility] Last Admin: 08/16/18 10:20 Dose: 40 mg Rosuvastatin Calcium (Crestor) 5 mg PO HS [facility] - Labs Labs: 08/16/18 05:52 08/16/18 05:52 PT 16.8 SECONDS (9.7-12.2) H 08/12/18 13:37 INR 1.5 08/12/18 13:37 APTT 58 SECONDS (21-34) H 08/16/18 00:44
--- NOTE | 2018-08-17 00:11 | CP.PCM.PN ---
Subjective - Date & Time of Evaluation Date of Evaluation: 08/13/18 Time of Evaluation: 10:00 - Subjective Subjective: on hypothermia protocol rewarming became hypotensive on IV heparin Objective - Vital Signs/Intake and Output Vital Signs (last 24 hours): Temp Pulse Resp BP Pulse Ox 98.2 F 65 18 156/86 H 99 08/16/18 16:00 08/16/18 19:01 08/16/18 19:01 08/16/18 19:01 08/16/18 19:01 Intake and Output: 08/16/18 08/17/18 18:59 06:59 Intake Total 1081.6 55.3 Output Total 905 70 Balance 176.6 -14.7 - Medications Medications: Current Medications Aspirin (Aspirin Chewable) 81 mg PO DAILY [facility] Last Admin: 08/16/18 10:20 Dose: 81 mg Propofol (Diprivan) 1,000 mg in 100 mls @ 2.041 mls/hr IV .Q24H PRN; Protocol PRN Reason: TITRATE PER MD ORDER Last Titration: 08/16/18 17:17 Dose: 15 mcg/kg/min, 6.124 mls/hr Piperacillin Sod/Tazobactam (Sod 3.375 gm/ Sodium Chloride) 100 mls @ 200 mls/hr IVPB Q8H [facility]; Protocol Last Admin: 08/16/18 17:15 Dose: 200 mls/hr Heparin Sodium/Sodium Chloride (Heparin 00091 Units/250ml 1/2 Normal Saline) 25,000 units in 250 mls @ 7.646 mls/hr IV .Q24H PRN; Protocol PRN Reason: ADJUST RATE PER PROTOCOL Last Admin: 08/16/18 01:14 Dose: 12 units/kg/hr, 9.175 mls/hr Doxycycline Hyclate 100 mg/ (Sodium Chloride) 100 mls @ 100 mls/hr IVPB Q12H [facility]; Protocol Last Admin: 08/16/18 15:40 Dose: 100 mls/hr Insulin Human Regular (Novolin R) 0 unit SC Q6H [facility]; Protocol Last Admin: 08/16/18 17:18 Dose: Not Given Losartan Potassium (Cozaar) 25 mg PO DAILY [facility] Last Admin: 08/16/18 10:19 Dose: 25 mg Metoprolol Tartrate (Lopressor) 50 mg PO BID [facility] Last Admin: 08/16/18 17:19 Dose: 50 mg Pantoprazole Sodium (Protonix Inj) 40 mg IVP DAILY [facility] Last Admin: 08/16/18 10:20 Dose: 40 mg Rosuvastatin Calcium (Crestor) 5 mg PO HS [facility] - Labs Labs: 08/16/18 05:52 08/16/18 05:52 PT 16.8 SECONDS (9.7-12.2) H 08/12/18 13:37 INR 1.5 08/12/18 13:37 APTT 58 SECONDS (21-34) H 08/16/18 00:44 - Constitutional Appears: Toxic - Head Exam Head Exam: ATRAUMATIC, NORMAL INSPECTION, NORMOCEPHALIC - Eye Exam Eye Exam: Normal appearance Pupil Exam: NORMAL ACCOMODATION - ENT Exam ENT Exam: Mucous Membranes Moist, Normal Exam - Neck Exam Neck Exam: Full ROM, Normal Inspection. absent: Lymphadenopathy - Respiratory Exam Respiratory Exam: Clear to Ausculation Bilateral, Rales, NORMAL BREATHING PATTERN - Cardiovascular Exam Cardiovascular Exam: Irregular Rhythm, +S1, +S2, Murmur - GI/Abdominal Exam GI & Abdominal Exam: Soft, Normal Bowel Sounds. absent: Tenderness - Extremities Exam Extremities Exam: Full ROM, Normal Capillary Refill, Normal Inspection. absent: Joint Swelling, Pedal Edema - Back Exam Back Exam: NORMAL INSPECTION - Neurological Exam Neurological Exam: Alert, Awake, CN II-XII Intact, Normal Gait, Oriented x3 - Psychiatric Exam Psychiatric exam: Normal Affect, Normal Mood - Skin Skin Exam: Dry, Intact, Normal Color, Warm Assessment and Plan (1) Cardiac arrest Assessment & Plan: NSTEMI cont IV heparin cardiac cath once MS improves Ep evaluation for ICD Status: Acute (2) Afib Assessment & Plan: IV heparin bb Status: Acute (3) Respiratory arrest Status: Acute (4) Acute kidney injury Status: Acute (5) Hypertension Status: Acute
--- NOTE | 2018-08-17 00:15 | CP.PCM.PN ---
Subjective - Date & Time of Evaluation Date of Evaluation: 08/16/18 Time of Evaluation: 19:00 - Subjective Subjective: on propofol PER iCU pt responding on weaning sedation on IV heparin for NSTEMI/cardiac arrest Echo EF 25-30% Objective - Vital Signs/Intake and Output Vital Signs (last 24 hours): Temp Pulse Resp BP Pulse Ox 98.2 F 65 18 156/86 H 99 08/16/18 16:00 08/16/18 19:01 08/16/18 19:01 08/16/18 19:01 08/16/18 19:01 Intake and Output: 08/16/18 08/17/18 18:59 06:59 Intake Total 1081.6 55.3 Output Total 905 70 Balance 176.6 -14.7 - Medications Medications: Current Medications Aspirin (Aspirin Chewable) 81 mg PO DAILY [facility] Last Admin: 08/16/18 10:20 Dose: 81 mg Propofol (Diprivan) 1,000 mg in 100 mls @ 2.041 mls/hr IV .Q24H PRN; Protocol PRN Reason: TITRATE PER MD ORDER Last Titration: 08/16/18 17:17 Dose: 15 mcg/kg/min, 6.124 mls/hr Piperacillin Sod/Tazobactam (Sod 3.375 gm/ Sodium Chloride) 100 mls @ 200 mls/hr IVPB Q8H [facility]; Protocol Last Admin: 08/16/18 17:15 Dose: 200 mls/hr Heparin Sodium/Sodium Chloride (Heparin 66789 Units/250ml 1/2 Normal Saline) 25,000 units in 250 mls @ 7.646 mls/hr IV .Q24H PRN; Protocol PRN Reason: ADJUST RATE PER PROTOCOL Last Admin: 08/16/18 01:14 Dose: 12 units/kg/hr, 9.175 mls/hr Doxycycline Hyclate 100 mg/ (Sodium Chloride) 100 mls @ 100 mls/hr IVPB Q12H [facility]; Protocol Last Admin: 08/16/18 15:40 Dose: 100 mls/hr Insulin Human Regular (Novolin R) 0 unit SC Q6H [facility]; Protocol Last Admin: 08/16/18 17:18 Dose: Not Given Losartan Potassium (Cozaar) 25 mg PO DAILY [facility] Last Admin: 08/16/18 10:19 Dose: 25 mg Metoprolol Tartrate (Lopressor) 50 mg PO BID [facility] Last Admin: 08/16/18 17:19 Dose: 50 mg Pantoprazole Sodium (Protonix Inj) 40 mg IVP DAILY [facility] Last Admin: 08/16/18 10:20 Dose: 40 mg Rosuvastatin Calcium (Crestor) 5 mg PO HS [facility] - Labs Labs: 08/16/18 05:52 08/16/18 05:52 PT 16.8 SECONDS (9.7-12.2) H 08/12/18 13:37 INR 1.5 08/12/18 13:37 APTT 58 SECONDS (21-34) H 08/16/18 00:44 - Constitutional Appears: Toxic, Chronically Ill - Head Exam Head Exam: ATRAUMATIC, NORMAL INSPECTION, NORMOCEPHALIC - Eye Exam Eye Exam: EOMI Pupil Exam: NORMAL ACCOMODATION, PERRL - ENT Exam ENT Exam: Mucous Membranes Moist, Normal Exam - Neck Exam Neck Exam: Full ROM, Normal Inspection. absent: Lymphadenopathy - Respiratory Exam Respiratory Exam: Clear to Ausculation Bilateral, Rales, NORMAL BREATHING PATTERN - Cardiovascular Exam Cardiovascular Exam: Irregular Rhythm, +S1, +S2, Murmur - GI/Abdominal Exam GI & Abdominal Exam: Soft, Normal Bowel Sounds. absent: Tenderness - Extremities Exam Extremities Exam: Full ROM, Normal Capillary Refill, Normal Inspection. absent: Joint Swelling, Pedal Edema - Back Exam Back Exam: NORMAL INSPECTION - Neurological Exam Neurological Exam: Altered - Skin Skin Exam: Dry, Intact, Normal Color, Warm Assessment and Plan (1) Cardiac arrest Assessment & Plan: +ve TnI post cardiac arrest Echo EF 25-30% with some regional WMA IV heparin asa bb EP eval for ICD cath once MS improves back to normal and off sedation Status: Acute (2) Afib Status: Acute (3) Respiratory arrest Status: Acute (4) Acute kidney injury Status: Acute (5) Hypertension Status: Acute
[2018-08-17] MEDS: (Novolin R) Insulin Human Regular 100 units/ml vial SC SCH ×4 (00:32→17:33)
[2018-08-17] MEDS: Piperacillin/Tazobact 3.375 GM in Sodium Chloride 100 ML IVPB SCH ×3 (02:45→17:24)
[2018-08-17 05:21] LABS: ARTERIAL BLOOD GAS HCO3 27.2 mmol/L (21-28); ARTERIAL BLOOD GAS O2 SAT 99.8 % (95-98); ARTERIAL BLOOD GAS PCO2 33 mm/Hg (35-45); ARTERIAL BLOOD GAS PO2 145 mm/Hg (80-100); ARTERIAL BLOOD GAS TCO2 26.7 mmol/L (22-28)
[2018-08-17] MEDS: Propofol 10 mg/ml 1,000 MG/100 ML VIAL IV PRN ×2 (06:08→16:23)
[2018-08-17 06:24] LABS: BASO % 0.3 % (0.0-2.0); EOS # 0.2 K/uL (0.0-0.7); EOS % 2.6 % (0.0-4.0); HEMOGLOBIN 8.5 g/dL (12.0-18.0); LYMPH # 1.8 K/uL (1.0-4.3); LYMPH % 24.9 % (20.0-40.0); MEAN CELL VOLUME 91.2 fL (80.0-94.0); MEAN CORPUSCULAR HEMOGLOBIN 30.3 pg (27.0-31.0); MEAN CORPUSCULAR HGB CONC 33.2 g/dL (33.0-37.0); MEAN PLATELET VOLUME 8.1 fL (7.2-11.7); MONO # 0.7 K/uL (0.0-0.8); MONO % 9.5 % (0.0-10.0); NEUT # 4.4 K/uL (1.8-7.0); NEUT % 62.7 % (50.0-75.0); RBC 2.79 Mil/uL (4.40-5.90); RED CELL DISTRIBUTION WIDTH 14.5 % (11.5-14.5)
[2018-08-17 06:34] LABS: INR 1.3; PROTHROMBIN TIME 13.7 SECONDS (9.7-12.2)
[2018-08-17 06:51] LABS: ALB/GLOB RATIO 1.1 (1.0-2.1); ALBUMIN 2.9 g/dL (3.5-5.0); ALT/SGPT 34 U/L (21-72); AST/SGOT 32 U/L (17-59); BLOOD UREA NITROGEN 33 mg/dL (9-20); CALCIUM 7.9 mg/dl (8.6-10.4); GFR NON-AFRICAN AMERICAN > 60
[2018-08-17] MEDS ORDERED: Iodixanol 320 MG/ML 100 ML BOTTLE IV ONE ×2 (09:24→10:23)
[2018-08-17] MEDS ORDERED: Midazolam 2 MG/2 ML VIAL ONE (10:01)
--- NOTE | 2018-08-17 11:03 | CP.PCM.PCO ---
Physician Communication Note - Physician Communication Note Physician Communication Note: Pt followed by ( [facility]) requested resume care
--- NOTE | 2018-08-17 11:22 | CP.CCUPN ---
<Bhargav Amezquita - Last Filed: 08/17/18 10:44> CCU Subjective - Physician Review Subjective (Free Text): PGY-1 Critical Care Progress Note for Dr. Ocampo's service Patient seen and examined at bedside. Patient is sedated, limited ROS because patient intubated. s/p cardiac cath showed 90% occlusion in LAD and 90% occlusion in PDA. Critical Care Time Spent (in minutes): 35 CCU Objective - Vital Signs / Intake & Output Vital Signs (Last 4 hours): Vital Signs Pulse Resp BP 08/17/18 07:01 69 18 173/99 H 08/17/18 07:00 83 18 Intake and Output (Last 8hrs): Intake & Output 08/16/18 08/17/18 08/17/18 22:59 06:59 14:59 Intake Total 687.1 623.5 Output Total 495 400 Balance 192.1 223.5 Weight 166 lb 12.8 oz Intake: IV 46 263 Intake, IV Amount 321.1 280.5 Left Antecubital 73.6 18.4 Left Distal Port Internal 47.5 62.1 Jugular Left Proximal Port 200 200 Internal Jugular Tube Feeding 320 80 Output: Urine 495 400 Urethral (Villanueva) 495 400 Other: # Bowel Movements 1 1 - Physical Exam Head: Positive for: Normocephalic, Other (brusing with ecchymosis of left eye) Extroacular Muscles: Positive for: EOMI Mouth: Positive for: Moist Mucous Membranes, Other (ET tube in place) Respiratory/Chest: Positive for: Good Air Exchange. Negative for: Wheezes Cardiovascular: Positive for: Normal S1, S2, Irregular Rhythm. Negative for: Regular Rate and Rhythm Abdomen: Positive for: Normal Bowel Sounds. Negative for: Tenderness, Distention Upper Extremity: Positive for: Normal Inspection. Negative for: Cyanosis Lower Extremity: Positive for: Normal Inspection. Negative for: Edema Neurological: Negative for: GCS=15 Skin: Positive for: Dry, Normal Color. Negative for: Warm Psychiatric: Negative for: Alert - Medications Active Medications: Active Medications Generic Name Dose Route Start Last Admin Trade Name Freq PRN Reason Stop Dose Admin Aspirin 81 mg 08/16/18 10:00 08/16/18 10:20 Aspirin Chewable PO 81 mg DAILY JESSE Administration Propofol 1,000 mg in 100 mls @ 2.041 mls/hr 08/11/18 19:35 08/17/18 06:08 Diprivan IV 20 mcg/kg/min .Q24H PRN 8.165 mls/hr TITRATE PER MD ORDER Administration Protocol 5 MCG/KG/MIN Piperacillin Sod/Tazobactam 100 mls @ 200 mls/hr 08/12/18 18:00 08/17/18 02:45 Sod 3.375 gm/ Sodium Chloride IVPB 200 mls/hr Q8H JESSE Administration Protocol Heparin Sodium/Sodium Chloride 25,000 units in 250 mls @ 7.646 mls/hr 08/14/18 22:29 08/17/18 00:00 Heparin 85493 Units/250ml 1/2 Normal Saline IV 0 units/kg/hr .Q24H PRN 0 mls/hr ADJUST RATE PER PROTOCOL Titration Protocol 10 UNITS/KG/HR Doxycycline Hyclate 100 mg/ 100 mls @ 100 mls/hr 08/15/18 16:00 08/17/18 03:14 Sodium Chloride IVPB 100 mls/hr Q12H JESSE Administration Protocol Potassium Chloride 20 meq in 100 mls @ 50 mls/hr 08/17/18 09:00 08/17/18 09:27 Potassium Chloride 20 Meq/100 Ml IVPB 08/17/18 10:59 50 mls/hr Q1H JESSE Administration Insulin Human Regular 0 unit 08/14/18 00:00 08/17/18 05:17 Novolin R SC Not Given Q6H JESSE Protocol Losartan Potassium 25 mg 08/16/18 10:00 08/17/18 09:28 Cozaar PO 25 mg DAILY JESSE Administration Metoprolol Tartrate 50 mg 08/16/18 10:00 08/17/18 09:28 Lopressor PO 50 mg BID JESSE Administration Pantoprazole Sodium 40 mg 08/11/18 15:30 08/17/18 09:27 Protonix Inj IVP 40 mg DAILY JESSE Administration Rosuvastatin Calcium 20 mg 08/17/18 10:39 Crestor PO HS JESSE - Patient Studies Lab Studies: Microbiology Studies 08/12/18 10:00 Blood Culture - Preliminary Blood-Venous NO GROWTH AFTER 4 DAYS 08/12/18 10:30 Blood Culture - Preliminary Blood-Venous NO GROWTH AFTER 4 DAYS Lab Studies 08/17/18 08/17/18 08/17/18 Range/Units 06:10 06:10 06:10 WBC 7.0 (4.8-10.8) K/uL RBC 2.79 L (4.40-5.90) Mil/uL Hgb 8.5 L (12.0-18.0) g/dL Hct 25.5 L (35.0-51.0) % MCV 91.2 (80.0-94.0) fL MCH 30.3 (27.0-31.0) pg MCHC 33.2 (33.0-37.0) g/dL RDW 14.5 (11.5-14.5) % Plt Count 180 (130-400) K/uL MPV 8.1 (7.2-11.7) fL Neut % (Auto) 62.7 (50.0-75.0) % Lymph % (Auto) 24.9 (20.0-40.0) % [place] % (Auto) 9.5 (0.0-10.0) % Eos % (Auto) 2.6 (0.0-4.0) % Baso % (Auto) 0.3 (0.0-2.0) % Neut # (Auto) 4.4 (1.8-7.0) K/uL Lymph # (Auto) 1.8 (1.0-4.3) K/uL [place] # (Auto) 0.7 (0.0-0.8) K/uL Eos # (Auto) 0.2 (0.0-0.7) K/uL Baso # (Auto) 0.0 (0.0-0.2) K/uL PT 13.7 H (9.7-12.2) SECONDS INR 1.3 APTT 29 D (21-34) SECONDS Puncture Site pCO2 (35-45) mm/Hg pO2 (80-100) mm/Hg HCO3 (21-28) mmol/L ABG pH (7.35-7.45) ABG Total CO2 (22-28) mmol/L ABG O2 Saturation (95-98) % ABG Base Excess (-2.0-3.0) mmol/L Danny Test ABG Potassium (3.6-5.2) mmol/L A-a O2 Difference mm/Hg Respiratory Index Sodium 146 (132-148) mmol/l Chloride 116 H (98-107) mmol/L Glucose (75-110) mg/dl Lactate (0.7-2.1) mmol/L Vent Mode Mechanical Rate FiO2 % Tidal Volume PEEP Potassium 3.3 L (3.6-5.2) mmol/L Carbon Dioxide 24 (22-30) mmol/L Anion Gap 9 L (10-20) BUN 33 H (9-20) mg/dL Creatinine 1.1 (0.8-1.5) mg/dL Est GFR ( Amer) > 60 Est GFR (Non-Af Amer) > 60 POC Glucose (mg/dL) (65-110) mg/dL Random Glucose 116 H (75-110) mg/dL Calcium 7.9 L (8.6-10.4) mg/dl Phosphorus 2.9 (2.5-4.5) mg/dL Magnesium 2.0 (1.6-2.3) mg/dL Total Bilirubin 0.7 (0.2-1.3) mg/dL AST 32 (17-59) U/L ALT 34 (21-72) U/L Alkaline Phosphatase 80 (38-126) U/L Total Protein 5.6 L (6.3-8.3) g/dL Albumin 2.9 L (3.5-5.0) g/dL Globulin 2.7 (2.2-3.9) gm/dL Albumin/Globulin Ratio 1.1 (1.0-2.1) Arterial Blood Potassium (3.6-5.2) mmol/L Stool Occult Blood (NEGATIVE) 08/17/18 08/17/18 08/17/18 Range/Units 05:16 04:58 00:12 WBC (4.8-10.8) K/uL RBC (4.40-5.90) Mil/uL Hgb (12.0-18.0) g/dL Hct (35.0-51.0) % MCV (80.0-94.0) fL MCH (27.0-31.0) pg MCHC (33.0-37.0) g/dL RDW (11.5-14.5) % Plt Count (130-400) K/uL MPV (7.2-11.7) fL Neut % (Auto) (50.0-75.0) % Lymph % (Auto) (20.0-40.0) % [place] % (Auto) (0.0-10.0) % Eos % (Auto) (0.0-4.0) % Baso % (Auto) (0.0-2.0) % Neut # (Auto) (1.8-7.0) K/uL Lymph # (Auto) (1.0-4.3) K/uL [place] # (Auto) (0.0-0.8) K/uL Eos # (Auto) (0.0-0.7) K/uL Baso # (Auto) (0.0-0.2) K/uL PT (9.7-12.2) SECONDS INR APTT (21-34) SECONDS Puncture Site Rb pCO2 33 L (35-45) mm/Hg pO2 145 H (80-100) mm/Hg HCO3 27.2 (21-28) mmol/L ABG pH 7.50 H (7.35-7.45) ABG Total CO2 26.7 (22-28) mmol/L ABG O2 Saturation 99.8 H (95-98) % ABG Base Excess 2.9 (-2.0-3.0) mmol/L Danny Test Na ABG Potassium 3.4 L (3.6-5.2) mmol/L A-a O2 Difference 135.0 mm/Hg Respiratory Index 0.9 Sodium 149.0 H (132-148) mmol/l Chloride 120.0 H (98-107) mmol/L Glucose 114 H (75-110) mg/dl Lactate 1.0 (0.7-2.1) mmol/L Vent Mode Prvc Mechanical Rate 18 FiO2 45.0 % Tidal Volume 500 PEEP 5 Potassium (3.6-5.2) mmol/L Carbon Dioxide (22-30) mmol/L Anion Gap (10-20) BUN (9-20) mg/dL Creatinine (0.8-1.5) mg/dL Est GFR ( Amer) Est GFR (Non-Af Amer) POC Glucose (mg/dL) 115 H 116 H (65-110) mg/dL Random Glucose (75-110) mg/dL Calcium (8.6-10.4) mg/dl Phosphorus (2.5-4.5) mg/dL Magnesium (1.6-2.3) mg/dL Total Bilirubin (0.2-1.3) mg/dL AST (17-59) U/L ALT (21-72) U/L Alkaline Phosphatase (38-126) U/L Total Protein (6.3-8.3) g/dL Albumin (3.5-5.0) g/dL Globulin (2.2-3.9) gm/dL Albumin/Globulin Ratio (1.0-2.1) Arterial Blood Potassium 3.4 L (3.6-5.2) mmol/L Stool Occult Blood (NEGATIVE) 08/16/18 08/16/18 08/16/18 Range/Units 18:08 17:16 11:09 WBC (4.8-10.8) K/uL RBC (4.40-5.90) Mil/uL Hgb (12.0-18.0) g/dL Hct (35.0-51.0) % MCV (80.0-94.0) fL MCH (27.0-31.0) pg MCHC (33.0-37.0) g/dL RDW (11.5-14.5) % Plt Count (130-400) K/uL MPV (7.2-11.7) fL Neut % (Auto) (50.0-75.0) % Lymph % (Auto) (20.0-40.0) % [place] % (Auto) (0.0-10.0) % Eos % (Auto) (0.0-4.0) % Baso % (Auto) (0.0-2.0) % Neut # (Auto) (1.8-7.0) K/uL Lymph # (Auto) (1.0-4.3) K/uL [place] # (Auto) (0.0-0.8) K/uL Eos # (Auto) (0.0-0.7) K/uL Baso # (Auto) (0.0-0.2) K/uL PT (9.7-12.2) SECONDS INR APTT (21-34) SECONDS Puncture Site pCO2 (35-45) mm/Hg pO2 (80-100) mm/Hg HCO3 (21-28) mmol/L ABG pH (7.35-7.45) ABG Total CO2 (22-28) mmol/L ABG O2 Saturation (95-98) % ABG Base Excess (-2.0-3.0) mmol/L Danny Test ABG Potassium (3.6-5.2) mmol/L A-a O2 Difference mm/Hg Respiratory Index Sodium (132-148) mmol/l Chloride (98-107) mmol/L Glucose (75-110) mg/dl Lactate (0.7-2.1) mmol/L Vent Mode Mechanical Rate FiO2 % Tidal Volume PEEP Potassium (3.6-5.2) mmol/L Carbon Dioxide (22-30) mmol/L Anion Gap (10-20) BUN (9-20) mg/dL Creatinine (0.8-1.5) mg/dL Est GFR ( Amer) Est GFR (Non-Af Amer) POC Glucose (mg/dL) 136 H 135 H (65-110) mg/dL Random Glucose (75-110) mg/dL Calcium (8.6-10.4) mg/dl Phosphorus (2.5-4.5) mg/dL Magnesium (1.6-2.3) mg/dL Total Bilirubin (0.2-1.3) mg/dL AST (17-59) U/L ALT (21-72) U/L Alkaline Phosphatase (38-126) U/L Total Protein (6.3-8.3) g/dL Albumin (3.5-5.0) g/dL Globulin (2.2-3.9) gm/dL Albumin/Globulin Ratio (1.0-2.1) Arterial Blood Potassium (3.6-5.2) mmol/L Stool Occult Blood Negative (NEGATIVE) Laboratory Results - last 24 hr 08/16/18 08/16/18 08/16/18 11:09 17:16 18:08 WBC RBC Hgb Hct MCV MCH MCHC RDW Plt Count MPV Neut % (Auto) Lymph % (Auto) [place] % (Auto) Eos % (Auto) Baso % (Auto) Neut # (Auto) Lymph # (Auto) [place] # (Auto) Eos # (Auto) Baso # (Auto) PT INR APTT Puncture Site pCO2 pO2 HCO3 ABG pH ABG Total CO2 ABG O2 Saturation ABG Base Excess Danny Test ABG Potassium A-a O2 Difference Respiratory Index Sodium Chloride Glucose Lactate Vent Mode Mechanical Rate FiO2 Tidal Volume PEEP Potassium Carbon Dioxide Anion Gap BUN Creatinine Est GFR ( Amer) Est GFR (Non-Af Amer) POC Glucose (mg/dL) 135 H 136 H Random Glucose Calcium Phosphorus Magnesium Total Bilirubin AST ALT Alkaline Phosphatase Total Protein Albumin Globulin Albumin/Globulin Ratio Arterial Blood Potassium Stool Occult Blood Negative 08/17/18 08/17/18 08/17/18 00:12 04:58 05:16 WBC RBC Hgb Hct MCV MCH MCHC RDW Plt Count MPV Neut % (Auto) Lymph % (Auto) [place] % (Auto) Eos % (Auto) Baso % (Auto) Neut # (Auto) Lymph # (Auto) [place] # (Auto) Eos # (Auto) Baso # (Auto) PT INR APTT Puncture Site Rb pCO2 33 L pO2 145 H HCO3 27.2 ABG pH 7.50 H ABG Total CO2 26.7 ABG O2 Saturation 99.8 H ABG Base Excess 2.9 Danny Test Na ABG Potassium 3.4 L A-a O2 Difference 135.0 Respiratory Index 0.9 Sodium 149.0 H Chloride 120.0 H Glucose 114 H Lactate 1.0 Vent Mode Prvc Mechanical Rate 18 FiO2 45.0 Tidal Volume 500 PEEP 5 Potassium Carbon Dioxide Anion Gap BUN Creatinine Est GFR ( Amer) Est GFR (Non-Af Amer) POC Glucose (mg/dL) 116 H 115 H Random Glucose Calcium Phosphorus Magnesium Total Bilirubin AST ALT Alkaline Phosphatase Total Protein Albumin Globulin Albumin/Globulin Ratio Arterial Blood Potassium 3.4 L Stool Occult Blood 08/17/18 08/17/18 08/17/18 06:10 06:10 06:10 WBC 7.0 RBC 2.79 L Hgb 8.5 L Hct 25.5 L MCV 91.2 MCH 30.3 MCHC 33.2 RDW 14.5 Plt Count 180 MPV 8.1 Neut % (Auto) 62.7 Lymph % (Auto) 24.9 [place] % (Auto) 9.5 Eos % (Auto) 2.6 Baso % (Auto) 0.3 Neut # (Auto) 4.4 Lymph # (Auto) 1.8 [place] # (Auto) 0.7 Eos # (Auto) 0.2 Baso # (Auto) 0.0 PT 13.7 H INR 1.3 APTT 29 D Puncture Site pCO2 pO2 HCO3 ABG pH ABG Total CO2 ABG O2 Saturation ABG Base Excess Danny Test ABG Potassium A-a O2 Difference Respiratory Index Sodium 146 Chloride 116 H Glucose Lactate Vent Mode Mechanical Rate FiO2 Tidal Volume PEEP Potassium 3.3 L Carbon Dioxide 24 Anion Gap 9 L BUN 33 H Creatinine 1.1 Est GFR ( Amer) > 60 Est GFR (Non-Af Amer) > 60 POC Glucose (mg/dL) Random Glucose 116 H Calcium 7.9 L Phosphorus 2.9 Magnesium 2.0 Total Bilirubin 0.7 AST 32 ALT 34 Alkaline Phosphatase 80 Total Protein 5.6 L Albumin 2.9 L Globulin 2.7 Albumin/Globulin Ratio 1.1 Arterial Blood Potassium Stool Occult Blood Fingerstick Blood Sugar Results: 136 Review of Systems - Review of Systems Systems not reviewed;Unavailable: Intubated Critical Care Progress Note - Ventilator Checklist Head of Bed 30 Degrees: Yes Daily Sedation Vacation: Yes Daily Assessment of Readiness to Wean: Yes Daily Spontaneous Breathing Trial: Yes PUD Prophalyxis: Yes DVT Prophylaxis: Yes Oral Care with Chlorhexidine Gluconate {CHG}: Yes - Vent Settings MODE:: PRVC TIDAL VOLUME:: 450 RESP RATE:: 18 FIO2:: 50 PEEP:: 5 - Extremities/Vascular Does the Patient have a Central Venous Catheter?: Yes Insertion Site: Internal Jugular Vein Does the Patient need a Central Venous Catheter?: Yes Does the Patient have a Villanueva Catheter?: Yes Does the Patient need a Villanueva Catheter?: Yes Catheter Insertion Criteria: Need for accurate measurement of output in critically ill patient - Prophylaxis GI Prophylaxis GI: PPI - Prophylaxis DVT Prophylaxis DVT: Heparin SQ Assessment/Plan - Assessment and Plan (Free Text) Assessment: Patient is an 83 yo male w/ PMH of Alzheimer's disease, CAD, atrial fibrillation, hypertension, hypercholesterolemia, dementia admitted to ICU s/p intubated and cardiac arrest in field. s/p cardiac cath showing proximal occlusion in LAD and PDA. Neuro Intubated, On propofol drip; patient can be aroused CT head shows remote vs chronic infarction in frontal lobe Pulm Intubated and on ventilator with ET tube in place CXR shows pulm edema Extubation as per ICU; can be extubated prior to cardiac intervention CV Cardiac Arrest in field- rosc achieved EKG in field showed ST elevation, EKG in ED showed Afib w/ diffuse ST segment changes Code Freeze initiated/completed Echo- severely impaired LV EF (25-30); hypokinesis in the apical septal wall, ischemic cardiomyopathy; mild AR repeat troponins elevated- Conrado cath on 08/17- shows LAD and PDA occlusion Heparin drip; Cozaar, Metoprolol, Aspirin, Crestor Tele strip shows patient in Afib Lasix x 1 40 GI Protonix; no active issues Endo Q6H accuchecks; ISS Renal no active issues Villanueva for strict Is/Os KCl 10meq x 1 and 20meq x 2 ID Doxy/Zosyn (08/15 and 08/12 respectively) - concern for aspiration PNA- ID following Disposition: Extubation as per ICU team, Cardiac intervention next week continue heparin/asa DVT ppx: SCDs, heparin GI ppx: protonix PGY-1 Bhargav Amezquita Medical Management d/w Dr. Ocampo <Margarito Ocampo S - Last Filed: 08/17/18 16:34> CCU Objective - Vital Signs / Intake & Output Vital Signs (Last 4 hours): Vital Signs Pulse Resp BP Pulse Ox 08/17/18 14:45 67 18 139/76 100 08/17/18 14:30 77 18 158/76 H 100 08/17/18 14:15 68 9 L 177/73 H 100 08/17/18 14:00 72 17 158/95 H 100 08/17/18 13:45 81 17 150/89 100 08/17/18 13:30 73 19 154/111 H 100 08/17/18 13:20 93 H 20 153/63 H 99 08/17/18 13:15 81 18 163/103 H 100 08/17/18 13:00 71 18 138/91 H 100 08/17/18 12:45 79 18 154/85 H 100 Intake and Output (Last 8hrs): Intake & Output 08/17/18 08/17/18 08/17/18 06:59 14:59 22:59 Intake Total 623.5 80 20 Output Total 400 Balance 223.5 80 20 Weight 166 lb 12.8 oz Intake: IV 263 80 20 Intake, IV Amount 280.5 Left Antecubital 18.4 Left Distal Port Internal 62.1 Jugular Left Proximal Port 200 Internal Jugular Tube Feeding 80 Output: Urine 400 Urethral (Villanueva) 400 Other: # Bowel Movements 1 - Medications Active Medications: Active Medications Generic Name Dose Route Start Last Admin Trade Name Freq PRN Reason Stop Dose Admin Aspirin 81 mg 08/16/18 10:00 08/17/18 12:03 Aspirin Chewable PO 81 mg DAILY JESSE Administration Propofol 1,000 mg in 100 mls @ 2.041 mls/hr 08/11/18 19:35 08/17/18 16:23 Diprivan IV 15 mcg/kg/min .Q24H PRN 6.124 mls/hr TITRATE PER MD ORDER Administration Protocol 5 MCG/KG/MIN Piperacillin Sod/Tazobactam 100 mls @ 200 mls/hr 08/12/18 18:00 08/17/18 12:03 Sod 3.375 gm/ Sodium Chloride IVPB 200 mls/hr Q8H JESSE Administration Protocol Heparin Sodium/Sodium Chloride 25,000 units in 250 mls @ 7.646 mls/hr 08/14/18 22:29 08/17/18 15:00 Heparin 90033 Units/250ml 1/2 Normal Saline IV 12 units/kg/hr .Q24H PRN 9.175 mls/hr ADJUST RATE PER PROTOCOL Titration Protocol 10 UNITS/KG/HR Doxycycline Hyclate 100 mg/ 100 mls @ 100 mls/hr 08/15/18 16:00 08/17/18 16:24 Sodium Chloride IVPB 100 mls/hr Q12H JESSE Administration Protocol Insulin Human Regular 0 unit 08/14/18 00:00 08/17/18 12:24 Novolin R SC Not Given Q6H [facility] Protocol Losartan Potassium 25 mg 08/16/18 10:00 08/17/18 09:28 Cozaar PO 25 mg DAILY JESSE Administration Metoprolol Tartrate 50 mg 08/16/18 10:00 08/17/18 09:28 Lopressor PO 50 mg BID JESSE Administration Pantoprazole Sodium 40 mg 08/11/18 15:30 08/17/18 09:27 Protonix Inj IVP 40 mg DAILY JESSE Administration Rosuvastatin Calcium 20 mg 08/17/18 22:00 Crestor PO HS JESSE - Patient Studies Lab Studies: Microbiology Studies 08/12/18 10:00 Blood Culture - Final Blood-Venous NO GROWTH AFTER 5 DAYS 08/12/18 10:30 Blood Culture - Final Blood-Venous NO GROWTH AFTER 5 DAYS Gram Stain - Final TEST NOT PERFORMED Lab Studies 08/17/18 08/17/18 08/17/18 Range/Units 11:14 06:10 06:10 WBC (4.8-10.8) K/uL RBC (4.40-5.90) Mil/uL Hgb (12.0-18.0) g/dL Hct (35.0-51.0) % MCV (80.0-94.0) fL MCH (27.0-31.0) pg MCHC (33.0-37.0) g/dL RDW (11.5-14.5) % Plt Count (130-400) K/uL MPV (7.2-11.7) fL Neut % (Auto) (50.0-75.0) % Lymph % (Auto) (20.0-40.0) % [place] % (Auto) (0.0-10.0) % Eos % (Auto) (0.0-4.0) % Baso % (Auto) (0.0-2.0) % Neut # (Auto) (1.8-7.0) K/uL Lymph # (Auto) (1.0-4.3) K/uL [place] # (Auto) (0.0-0.8) K/uL Eos # (Auto) (0.0-0.7) K/uL Baso # (Auto) (0.0-0.2) K/uL PT 13.7 H (9.7-12.2) SECONDS INR 1.3 APTT 29 D (21-34) SECONDS Puncture Site pCO2 (35-45) mm/Hg pO2 (80-100) mm/Hg HCO3 (21-28) mmol/L ABG pH (7.35-7.45) ABG Total CO2 (22-28) mmol/L ABG O2 Saturation (95-98) % ABG Base Excess (-2.0-3.0) mmol/L Danny Test ABG Potassium (3.6-5.2) mmol/L A-a O2 Difference mm/Hg Respiratory Index Sodium 146 (132-148) mmol/l Chloride 116 H (98-107) mmol/L Glucose (75-110) mg/dl Lactate (0.7-2.1) mmol/L Vent Mode Mechanical Rate FiO2 % Tidal Volume PEEP Potassium 3.3 L (3.6-5.2) mmol/L Carbon Dioxide 24 (22-30) mmol/L Anion Gap 9 L (10-20) BUN 33 H (9-20) mg/dL Creatinine 1.1 (0.8-1.5) mg/dL Est GFR ( Amer) > 60 Est GFR (Non-Af Amer) > 60 POC Glucose (mg/dL) 127 H (65-110) mg/dL Random Glucose 116 H (75-110) mg/dL Calcium 7.9 L (8.6-10.4) mg/dl Phosphorus 2.9 (2.5-4.5) mg/dL Magnesium 2.0 (1.6-2.3) mg/dL Total Bilirubin 0.7 (0.2-1.3) mg/dL AST 32 (17-59) U/L ALT 34 (21-72) U/L Alkaline Phosphatase 80 (38-126) U/L Total Protein 5.6 L (6.3-8.3) g/dL Albumin 2.9 L (3.5-5.0) g/dL Globulin 2.7 (2.2-3.9) gm/dL Albumin/Globulin Ratio 1.1 (1.0-2.1) Arterial Blood Potassium (3.6-5.2) mmol/L Stool Occult Blood (NEGATIVE) 08/17/18 08/17/18 08/17/18 Range/Units 06:10 05:16 04:58 WBC 7.0 (4.8-10.8) K/uL RBC 2.79 L (4.40-5.90) Mil/uL Hgb 8.5 L (12.0-18.0) g/dL Hct 25.5 L (35.0-51.0) % MCV 91.2 (80.0-94.0) fL MCH 30.3 (27.0-31.0) pg MCHC 33.2 (33.0-37.0) g/dL RDW 14.5 (11.5-14.5) % Plt Count 180 (130-400) K/uL MPV 8.1 (7.2-11.7) fL Neut % (Auto) 62.7 (50.0-75.0) % Lymph % (Auto) 24.9 (20.0-40.0) % [place] % (Auto) 9.5 (0.0-10.0) % Eos % (Auto) 2.6 (0.0-4.0) % Baso % (Auto) 0.3 (0.0-2.0) % Neut # (Auto) 4.4 (1.8-7.0) K/uL Lymph # (Auto) 1.8 (1.0-4.3) K/uL [place] # (Auto) 0.7 (0.0-0.8) K/uL Eos # (Auto) 0.2 (0.0-0.7) K/uL Baso # (Auto) 0.0 (0.0-0.2) K/uL PT (9.7-12.2) SECONDS INR APTT (21-34) SECONDS Puncture Site Rb pCO2 33 L (35-45) mm/Hg pO2 145 H (80-100) mm/Hg HCO3 27.2 (21-28) mmol/L ABG pH 7.50 H (7.35-7.45) ABG Total CO2 26.7 (22-28) mmol/L ABG O2 Saturation 99.8 H (95-98) % ABG Base Excess 2.9 (-2.0-3.0) mmol/L Danny Test Na ABG Potassium 3.4 L (3.6-5.2) mmol/L A-a O2 Difference 135.0 mm/Hg Respiratory Index 0.9 Sodium 149.0 H (132-148) mmol/l Chloride 120.0 H (98-107) mmol/L Glucose 114 H (75-110) mg/dl Lactate 1.0 (0.7-2.1) mmol/L Vent Mode Prvc Mechanical Rate 18 FiO2 45.0 % Tidal Volume 500 PEEP 5 Potassium (3.6-5.2) mmol/L Carbon Dioxide (22-30) mmol/L Anion Gap (10-20) BUN (9-20) mg/dL Creatinine (0.8-1.5) mg/dL Est GFR ( Amer) Est GFR (Non-Af Amer) POC Glucose (mg/dL) 115 H (65-110) mg/dL Random Glucose (75-110) mg/dL Calcium (8.6-10.4) mg/dl Phosphorus (2.5-4.5) mg/dL Magnesium (1.6-2.3) mg/dL Total Bilirubin (0.2-1.3) mg/dL AST (17-59) U/L ALT (21-72) U/L Alkaline Phosphatase (38-126) U/L Total Protein (6.3-8.3) g/dL Albumin (3.5-5.0) g/dL Globulin (2.2-3.9) gm/dL Albumin/Globulin Ratio (1.0-2.1) Arterial Blood Potassium 3.4 L (3.6-5.2) mmol/L Stool Occult Blood (NEGATIVE) 08/17/18 08/16/18 08/16/18 Range/Units 00:12 18:08 17:16 WBC (4.8-10.8) K/uL RBC (4.40-5.90) Mil/uL Hgb (12.0-18.0) g/dL Hct (35.0-51.0) % MCV (80.0-94.0) fL MCH (27.0-31.0) pg MCHC (33.0-37.0) g/dL RDW (11.5-14.5) % Plt Count (130-400) K/uL MPV (7.2-11.7) fL Neut % (Auto) (50.0-75.0) % Lymph % (Auto) (20.0-40.0) % [place] % (Auto) (0.0-10.0) % Eos % (Auto) (0.0-4.0) % Baso % (Auto) (0.0-2.0) % Neut # (Auto) (1.8-7.0) K/uL Lymph # (Auto) (1.0-4.3) K/uL [place] # (Auto) (0.0-0.8) K/uL Eos # (Auto) (0.0-0.7) K/uL Baso # (Auto) (0.0-0.2) K/uL PT (9.7-12.2) SECONDS INR APTT (21-34) SECONDS Puncture Site pCO2 (35-45) mm/Hg pO2 (80-100) mm/Hg HCO3 (21-28) mmol/L ABG pH (7.35-7.45) ABG Total CO2 (22-28) mmol/L ABG O2 Saturation (95-98) % ABG Base Excess (-2.0-3.0) mmol/L Danny Test ABG Potassium (3.6-5.2) mmol/L A-a O2 Difference mm/Hg Respiratory Index Sodium (132-148) mmol/l Chloride (98-107) mmol/L Glucose (75-110) mg/dl Lactate (0.7-2.1) mmol/L Vent Mode Mechanical Rate FiO2 % Tidal Volume PEEP Potassium (3.6-5.2) mmol/L Carbon Dioxide (22-30) mmol/L Anion Gap (10-20) BUN (9-20) mg/dL Creatinine (0.8-1.5) mg/dL Est GFR ( Amer) Est GFR (Non-Af Amer) POC Glucose (mg/dL) 116 H 136 H (65-110) mg/dL Random Glucose (75-110) mg/dL Calcium (8.6-10.4) mg/dl Phosphorus (2.5-4.5) mg/dL Magnesium (1.6-2.3) mg/dL Total Bilirubin (0.2-1.3) mg/dL AST (17-59) U/L ALT (21-72) U/L Alkaline Phosphatase (38-126) U/L Total Protein (6.3-8.3) g/dL Albumin (3.5-5.0) g/dL Globulin (2.2-3.9) gm/dL Albumin/Globulin Ratio (1.0-2.1) Arterial Blood Potassium (3.6-5.2) mmol/L Stool Occult Blood Negative (NEGATIVE) Laboratory Results - last 24 hr 08/16/18 08/16/18 08/17/18 17:16 18:08 00:12 WBC RBC Hgb Hct MCV MCH MCHC RDW Plt Count MPV Neut % (Auto) Lymph % (Auto) [place] % (Auto) Eos % (Auto) Baso % (Auto) Neut # (Auto) Lymph # (Auto) [place] # (Auto) Eos # (Auto) Baso # (Auto) PT INR APTT Puncture Site pCO2 pO2 HCO3 ABG pH ABG Total CO2 ABG O2 Saturation ABG Base Excess Danny Test ABG Potassium A-a O2 Difference Respiratory Index Sodium Chloride Glucose Lactate Vent Mode Mechanical Rate FiO2 Tidal Volume PEEP Potassium Carbon Dioxide Anion Gap BUN Creatinine Est GFR ( Amer) Est GFR (Non-Af Amer) POC Glucose (mg/dL) 136 H 116 H Random Glucose Calcium Phosphorus Magnesium Total Bilirubin AST ALT Alkaline Phosphatase Total Protein Albumin Globulin Albumin/Globulin Ratio Arterial Blood Potassium Stool Occult Blood Negative 08/17/18 08/17/18 08/17/18 04:58 05:16 06:10 WBC 7.0 RBC 2.79 L Hgb 8.5 L Hct 25.5 L MCV 91.2 MCH 30.3 MCHC 33.2 RDW 14.5 Plt Count 180 MPV 8.1 Neut % (Auto) 62.7 Lymph % (Auto) 24.9 [place] % (Auto) 9.5 Eos % (Auto) 2.6 Baso % (Auto) 0.3 Neut # (Auto) 4.4 Lymph # (Auto) 1.8 [place] # (Auto) 0.7 Eos # (Auto) 0.2 Baso # (Auto) 0.0 PT INR APTT Puncture Site Rb pCO2 33 L pO2 145 H HCO3 27.2 ABG pH 7.50 H ABG Total CO2 26.7 ABG O2 Saturation 99.8 H ABG Base Excess 2.9 Danny Test Na ABG Potassium 3.4 L A-a O2 Difference 135.0 Respiratory Index 0.9 Sodium 149.0 H Chloride 120.0 H Glucose 114 H Lactate 1.0 Vent Mode Prvc Mechanical Rate 18 FiO2 45.0 Tidal Volume 500 PEEP 5 Potassium Carbon Dioxide Anion Gap BUN Creatinine Est GFR ( Amer) Est GFR (Non-Af Amer) POC Glucose (mg/dL) 115 H Random Glucose Calcium Phosphorus Magnesium Total Bilirubin AST ALT Alkaline Phosphatase Total Protein Albumin Globulin Albumin/Globulin Ratio Arterial Blood Potassium 3.4 L Stool Occult Blood 08/17/18 08/17/18 08/17/18 06:10 06:10 11:14 WBC RBC Hgb Hct MCV MCH MCHC RDW Plt Count MPV Neut % (Auto) Lymph % (Auto) [place] % (Auto) Eos % (Auto) Baso % (Auto) Neut # (Auto) Lymph # (Auto) [place] # (Auto) Eos # (Auto) Baso # (Auto) PT 13.7 H INR 1.3 APTT 29 D Puncture Site pCO2 pO2 HCO3 ABG pH ABG Total CO2 ABG O2 Saturation ABG Base Excess Danny Test ABG Potassium A-a O2 Difference Respiratory Index Sodium 146 Chloride 116 H Glucose Lactate Vent Mode Mechanical Rate FiO2 Tidal Volume PEEP Potassium 3.3 L Carbon Dioxide 24 Anion Gap 9 L BUN 33 H Creatinine 1.1 Est GFR ( Amer) > 60 Est GFR (Non-Af Amer) > 60 POC Glucose (mg/dL) 127 H Random Glucose 116 H Calcium 7.9 L Phosphorus 2.9 Magnesium 2.0 Total Bilirubin 0.7 AST 32 ALT 34 Alkaline Phosphatase 80 Total Protein 5.6 L Albumin 2.9 L Globulin 2.7 Albumin/Globulin Ratio 1.1 Arterial Blood Potassium Stool Occult Blood Radiology Impressions: Radiology Impressions Chest X-Ray 08/17/18 06:00 Impression: Lines and tubes in stable position. Moderate to severe venous congestion with prominent airspace opacification in the mid to lower lung zones. Moderate bilateral pleural effusions. Atherosclerotic calcification at the aortic knob. Cardiomegaly. Attending/Attestation - Attestation I have personally seen and examined this patient.: Yes I have fully participated in the care of the patient.: Yes I have reviewed all pertinent clinical information: Yes Notes (Text): 08/17/18 16:33 Patient seen and examined in the intensive care unit. Remained intubated on ventilatory support More responsive CPAP trial Status post cardiac cath Possible stent placement at [facility] continue present treatment for now
--- NOTE | 2018-08-17 13:11 | RAD ---
Chest x-ray single frontal view History: Intubated. Comparison: 08/16/2017 Findings: Lines and tubes in stable position. Moderate to severe venous congestion with prominent airspace opacification in the mid to lower lung zones. Moderate bilateral pleural effusions. Atherosclerotic calcification at the aortic knob. Cardiomegaly. Degenerative changes in the spine and shoulders. Impression: Lines and tubes in stable position. Moderate to severe venous congestion with prominent airspace opacification in the mid to lower lung zones. Moderate bilateral pleural effusions. Atherosclerotic calcification at the aortic knob. Cardiomegaly.
--- NOTE | 2018-08-17 15:12 | CP.PCM.PN ---
Subjective - Date & Time of Evaluation Date of Evaluation: 08/17/18 Time of Evaluation: 15:10 - Subjective Subjective: Neurology Follow-Up Note: Mr. Arredondo was evaluated this afternoon in the ICU. He is post-cardiac cath this morning with Dr. Camp and was found to have 90% occlusions of both the LAD and PDA. Pt remains intubated and on sedation, however, he can follow simple commands. Pt is slightly agitated regardless of sedation. When asked if he was in any pain or if he had any complaints he shook his head "no." Chart reviewed; discussed events with primary RN. Objective - Vital Signs/Intake and Output Vital Signs (last 24 hours): Temp Pulse Resp BP Pulse Ox 98.1 F 67 18 139/76 100 08/17/18 04:00 08/17/18 14:45 08/17/18 14:45 08/17/18 14:45 08/17/18 14:45 Intake and Output: 08/17/18 08/17/18 06:59 18:59 Intake Total 844.7 80 Output Total 620 Balance 224.7 80 - Medications Medications: Current Medications Aspirin (Aspirin Chewable) 81 mg PO DAILY [facility] Last Admin: 08/17/18 12:03 Dose: 81 mg Propofol (Diprivan) 1,000 mg in 100 mls @ 2.041 mls/hr IV .Q24H PRN; Protocol PRN Reason: TITRATE PER MD ORDER Last Titration: 08/17/18 14:59 Dose: 15 mcg/kg/min, 6.124 mls/hr Piperacillin Sod/Tazobactam (Sod 3.375 gm/ Sodium Chloride) 100 mls @ 200 mls/hr IVPB Q8H [facility]; Protocol Last Admin: 08/17/18 12:03 Dose: 200 mls/hr Heparin Sodium/Sodium Chloride (Heparin 13305 Units/250ml 1/2 Normal Saline) 25,000 units in 250 mls @ 7.646 mls/hr IV .Q24H PRN; Protocol PRN Reason: ADJUST RATE PER PROTOCOL Last Titration: 08/17/18 15:00 Dose: 12 units/kg/hr, 9.175 mls/hr Doxycycline Hyclate 100 mg/ (Sodium Chloride) 100 mls @ 100 mls/hr IVPB Q12H [facility]; Protocol Last Admin: 08/17/18 03:14 Dose: 100 mls/hr Insulin Human Regular (Novolin R) 0 unit SC Q6H [facility]; Protocol Last Admin: 08/17/18 12:24 Dose: Not Given Losartan Potassium (Cozaar) 25 mg PO DAILY [facility] Last Admin: 08/17/18 09:28 Dose: 25 mg Metoprolol Tartrate (Lopressor) 50 mg PO BID [facility] Last Admin: 08/17/18 09:28 Dose: 50 mg Pantoprazole Sodium (Protonix Inj) 40 mg IVP DAILY [facility] Last Admin: 08/17/18 09:27 Dose: 40 mg Rosuvastatin Calcium (Crestor) 20 mg PO HS [facility] - Labs Labs: 08/17/18 06:10 08/17/18 06:10 PT 13.7 SECONDS (9.7-12.2) H 08/17/18 06:10 INR 1.3 08/17/18 06:10 APTT 29 SECONDS (21-34) D 08/17/18 06:10 - Constitutional Appears: Non-toxic, Agitated (slightly agitated; able to be redirected in Danish) - Head Exam Head Exam: ATRAUMATIC, NORMOCEPHALIC - Eye Exam Pupil Exam: PERRL - ENT Exam ENT Exam: Mucous Membranes Moist Additional comments: intubated - Neck Exam Neck Exam: Normal Inspection - Respiratory Exam Respiratory Exam: absent: NORMAL BREATHING PATTERN Additional comments: intubated - Cardiovascular Exam Cardiovascular Exam: Irregular Rhythm - GI/Abdominal Exam Additional comments: ngt in place - Exam Additional comments: sloan cath in place - Extremities Exam Extremities Exam: absent: Calf Tenderness, Full ROM, Pedal Edema Additional comments: able to move all extremities independently. encouraged to maintain right leg still 2/2 post-cardiac cath - Neurological Exam Neurological Exam: absent: Normal Gait, Oriented x3 Additional comments: Intubated, on sedation; awake, eyes open, follows some simple commands. Shakes and nods head in response to some questions. Moving extremities independently; no rigidity Knee immobilizer on rle to encourage pt to maintain leg still 2/2 cardiac cath this morning. Unable to test strength, fine motor, sensation 2/2 pt's condition. +corneals, + gag. No tremors, no clonus, toes are downgoing. - Psychiatric Exam Additional comments: intubated - Skin Skin Exam: Normal Color Assessment and Plan (1) Cardiac arrest Assessment & Plan: Assessment: Mr. Arredondo is an 83 y/o M who was admitted after collapsing while out with his and became unresponsive; post-cardiac arrest. He remains intubated but opens eyes upon command and can follow simple commands. He is status-post cardiac cath this morning with Dr. Camp and was found to have 90% occlusions of both the LAD and PDA. He is for stent[place] [facility] when it can be arranged by cardiology. His recent head imaging shows chronic infarcts; no acute infarct or hemorrhage. Imaging reviewed: -CT Head (08/14/18): There are no acute findings -CT Head (08/11/18):Small hypodensity involving the right frontal vertex appears consistent with chronic or remote infarction. Moderate nonspecific white matter changes. Fluid within the right mastoid air cells; correlate clinically for mastoiditis. Generalized atrophy. Additional incidental findings as above. -ECHO (08/12/18): afib; EF 25-30% -Continue ASA and statin -PT/OT when medically stable -Cardiology on board -Heparin drip maintained by primary team and cardiology. -Continue current ICU management -Notify neuro team of any change in pt's condition. We will continue to follow this pt. Case discussed with Dr. Willett Status: Acute
[2018-08-17] MEDS ORDERED: Labetalol 5mg/ml (4ml) IVP STA (16:12)
--- NOTE | 2018-08-17 16:32 | CP.PCM.PN ---
Subjective - Date & Time of Evaluation Date of Evaluation: 08/17/18 Time of Evaluation: 16:32 - Subjective Subjective: Coverage with Dr. Arabella Clay Patient seen and examined No events overnight Objective - Vital Signs/Intake and Output Vital Signs (last 24 hours): Temp Pulse Resp BP Pulse Ox 98.1 F 67 18 139/76 100 08/17/18 04:00 08/17/18 14:45 08/17/18 14:45 08/17/18 14:45 08/17/18 14:45 Intake and Output: 08/17/18 08/17/18 06:59 18:59 Intake Total 844.7 100 Output Total 620 Balance 224.7 100 - Medications Medications: Current Medications Aspirin (Aspirin Chewable) 81 mg PO DAILY [facility] Last Admin: 08/17/18 12:03 Dose: 81 mg Propofol (Diprivan) 1,000 mg in 100 mls @ 2.041 mls/hr IV .Q24H PRN; Protocol PRN Reason: TITRATE PER MD ORDER Last Admin: 08/17/18 16:23 Dose: 15 mcg/kg/min, 6.124 mls/hr Piperacillin Sod/Tazobactam (Sod 3.375 gm/ Sodium Chloride) 100 mls @ 200 mls/hr IVPB Q8H [facility]; Protocol Last Admin: 08/17/18 12:03 Dose: 200 mls/hr Heparin Sodium/Sodium Chloride (Heparin 00945 Units/250ml 1/2 Normal Saline) 25,000 units in 250 mls @ 7.646 mls/hr IV .Q24H PRN; Protocol PRN Reason: ADJUST RATE PER PROTOCOL Last Titration: 08/17/18 15:00 Dose: 12 units/kg/hr, 9.175 mls/hr Doxycycline Hyclate 100 mg/ (Sodium Chloride) 100 mls @ 100 mls/hr IVPB Q12H [facility]; Protocol Last Admin: 08/17/18 16:24 Dose: 100 mls/hr Insulin Human Regular (Novolin R) 0 unit SC Q6H [facility]; Protocol Last Admin: 08/17/18 12:24 Dose: Not Given Losartan Potassium (Cozaar) 25 mg PO DAILY [facility] Last Admin: 08/17/18 09:28 Dose: 25 mg Metoprolol Tartrate (Lopressor) 50 mg PO BID [facility] Last Admin: 08/17/18 09:28 Dose: 50 mg Pantoprazole Sodium (Protonix Inj) 40 mg IVP DAILY [facility] Last Admin: 08/17/18 09:27 Dose: 40 mg Rosuvastatin Calcium (Crestor) 20 mg PO HS [facility] - Labs Labs: 08/17/18 06:10 08/17/18 06:10 PT 13.7 SECONDS (9.7-12.2) H 08/17/18 06:10 INR 1.3 08/17/18 06:10 APTT 29 SECONDS (21-34) D 08/17/18 06:10 - Head Exam Head Exam: NORMAL INSPECTION - Eye Exam Eye Exam: Normal appearance - ENT Exam ENT Exam: Mucous Membranes Moist - Respiratory Exam Respiratory Exam: Rhonchi - Cardiovascular Exam Cardiovascular Exam: REGULAR RHYTHM - GI/Abdominal Exam GI & Abdominal Exam: Soft, Normal Bowel Sounds - Extremities Exam Extremities Exam: Pedal Edema Assessment and Plan (1) Cardiac arrest Status: Acute (2) Respiratory arrest Status: Acute (3) Congestive heart failure Status: Acute (4) Diabetes Status: Acute (5) Hypertension Status: Acute - Assessment and Plan (Free Text) Plan: Continue full vent support Continue antibiotics For cardiac cath today Blood pressure control NGT feeds Supportive care DVT/GI prophalaxis
--- NOTE | 2018-08-17 21:12 | CP.PCM.PN ---
Subjective - Date & Time of Evaluation Date of Evaluation: 08/17/18 Time of Evaluation: 15:15 - Subjective Subjective: dictated Objective - Vital Signs/Intake and Output Vital Signs (last 24 hours): Temp Pulse Resp BP Pulse Ox 97.9 F 84 18 135/80 100 08/17/18 17:00 08/17/18 19:00 08/17/18 19:00 08/17/18 19:00 08/17/18 19:00 Intake and Output: 08/17/18 08/18/18 18:59 06:59 Intake Total 817.6 21.4 Output Total 2045 Balance -1227.4 21.4 - Medications Medications: Current Medications Aspirin (Aspirin Chewable) 81 mg PO DAILY [facility] Last Admin: 08/17/18 12:03 Dose: 81 mg Propofol (Diprivan) 1,000 mg in 100 mls @ 2.041 mls/hr IV .Q24H PRN; Protocol PRN Reason: TITRATE PER MD ORDER Last Titration: 08/17/18 16:45 Dose: 29.88 mcg/kg/min, 12.198 mls/hr Piperacillin Sod/Tazobactam (Sod 3.375 gm/ Sodium Chloride) 100 mls @ 200 mls/hr IVPB Q8H [facility]; Protocol Last Admin: 08/17/18 17:24 Dose: 200 mls/hr Heparin Sodium/Sodium Chloride (Heparin 54933 Units/250ml 1/2 Normal Saline) 25,000 units in 250 mls @ 7.646 mls/hr IV .Q24H PRN; Protocol PRN Reason: ADJUST RATE PER PROTOCOL Last Titration: 08/17/18 15:00 Dose: 12 units/kg/hr, 9.175 mls/hr Doxycycline Hyclate 100 mg/ (Sodium Chloride) 100 mls @ 100 mls/hr IVPB Q12H [facility]; Protocol Last Admin: 08/17/18 16:24 Dose: 100 mls/hr Insulin Human Regular (Novolin R) 0 unit SC Q6H [facility]; Protocol Last Admin: 08/17/18 17:33 Dose: Not Given Losartan Potassium (Cozaar) 25 mg PO DAILY [facility] Last Admin: 08/17/18 09:28 Dose: 25 mg Metoprolol Tartrate (Lopressor) 50 mg PO BID [facility] Last Admin: 08/17/18 17:24 Dose: 50 mg Pantoprazole Sodium (Protonix Inj) 40 mg IVP DAILY [facility] Last Admin: 08/17/18 09:27 Dose: 40 mg Rosuvastatin Calcium (Crestor) 20 mg PO HS [facility] - Labs Labs: 08/17/18 06:10 08/17/18 06:10 PT 13.7 SECONDS (9.7-12.2) H 08/17/18 06:10 INR 1.3 08/17/18 06:10 APTT 29 SECONDS (21-34) D 08/17/18 06:10
--- NOTE | 2018-08-17 22:23 | CP.PCM.PN ---
Subjective - Date & Time of Evaluation Date of Evaluation: 08/17/18 Time of Evaluation: 22:17 - Subjective Subjective: Patient s/p Cath L Main: Patent LAD/Diags: Proximal 95% calcific stenosis L Cx/OM: Patent RCA: Dominant, PDA 99% EF: 20%, Dialted Ischemic CMP Plan: Atherectomy and PCI of LAD and RCA with Impella assistance LifeVest ICD eval after 3months Objective - Vital Signs/Intake and Output Vital Signs (last 24 hours): Temp Pulse Resp BP Pulse Ox 97.9 F 86 18 125/83 100 08/17/18 17:00 08/17/18 21:00 08/17/18 21:00 08/17/18 21:00 08/17/18 21:00 Intake and Output: 08/17/18 08/18/18 18:59 06:59 Intake Total 817.6 21.4 Output Total 2045 Balance -1227.4 21.4 - Medications Medications: Current Medications Aspirin (Aspirin Chewable) 81 mg PO DAILY [facility] Last Admin: 08/17/18 12:03 Dose: 81 mg Propofol (Diprivan) 1,000 mg in 100 mls @ 2.041 mls/hr IV .Q24H PRN; Protocol PRN Reason: TITRATE PER MD ORDER Last Titration: 08/17/18 16:45 Dose: 29.88 mcg/kg/min, 12.198 mls/hr Piperacillin Sod/Tazobactam (Sod 3.375 gm/ Sodium Chloride) 100 mls @ 200 mls/hr IVPB Q8H [facility]; Protocol Last Admin: 08/17/18 17:24 Dose: 200 mls/hr Heparin Sodium/Sodium Chloride (Heparin 75101 Units/250ml 1/2 Normal Saline) 25,000 units in 250 mls @ 7.646 mls/hr IV .Q24H PRN; Protocol PRN Reason: ADJUST RATE PER PROTOCOL Last Titration: 08/17/18 15:00 Dose: 12 units/kg/hr, 9.175 mls/hr Doxycycline Hyclate 100 mg/ (Sodium Chloride) 100 mls @ 100 mls/hr IVPB Q12H [facility]; Protocol Last Admin: 08/17/18 16:24 Dose: 100 mls/hr Insulin Human Regular (Novolin R) 0 unit SC Q6H [facility]; Protocol Last Admin: 08/17/18 17:33 Dose: Not Given Losartan Potassium (Cozaar) 25 mg PO DAILY [facility] Last Admin: 08/17/18 09:28 Dose: 25 mg Metoprolol Tartrate (Lopressor) 50 mg PO BID [facility] Last Admin: 08/17/18 17:24 Dose: 50 mg Pantoprazole Sodium (Protonix Inj) 40 mg IVP DAILY [facility] Last Admin: 08/17/18 09:27 Dose: 40 mg Rosuvastatin Calcium (Crestor) 20 mg PO HS [facility] - Labs Labs: 08/17/18 06:10 08/17/18 06:10 PT 13.7 SECONDS (9.7-12.2) H 08/17/18 06:10 INR 1.3 08/17/18 06:10 APTT 48 SECONDS (21-34) H D 08/17/18 21:53
--- NOTE | 2018-08-17 23:49 | CON ---
DATE: 08/17/2018 CONSULT SERVICE: Clinical cardiac electrophysiology. PHYSICIAN PERFORMING CONSULT: Bernard Barber MD. PHYSICIAN REQUESTING CONSULT: Antelmo Camp MD. REASON FOR CONSULTATION: Cardiac arrest. HISTORY OF PRESENT ILLNESS: This is an 83-year-old male with a history of coronary disease with a report of past myocardial infarction a few years in the past, hypertension, diabetes, permanent atrial fibrillation (EKGs dating back to 2013 documenting atrial fibrillation), presenting to [facility] after suffering cardiac arrest on 08/11/2018. The patient had been doing well over the course of the day on the day of admission and apparently became unconscious at some point while doing typical activities. It is unclear if the patient had been feeling well or unwell just prior to the event. EMS was called and initiated CPR and the patient was reportedly in a ventricular arrhythmia, although I do not know if this was monomorphic VT versus polymorphic VT/VF. The EKG immediately post defibrillation also reported to have ST elevations, but then subsequent EKGs did not reveal this. Again, the post-shock EKG is also not available for my review. He was subsequently intubated and brought to [facility]. Here, as mentioned, his repeat EKGs demonstrated atrial fibrillation with rapid antegrade conduction and minimal ischemic changes. LABORATORY DATA: Initially demonstrated a lactate of 4.8, an initial troponin of 0.04, which on repeat increased to 2.37 the following day though subsequent was 2.21 a few hours later and it was no longer cycled. The AST was mildly elevated and the MB was also elevated at 25, was initially 1.57 on admission. The patient underwent hyperthermic protocol, was administered beta blockers, IV heparin and other medications for presumed acute coronary syndrome. An echocardiogram was performed, which demonstrated severe LV dysfunction. Today, he remains intubated but is improving and is nearing extubation. He underwent cardiac catheterization today, performed by Dr. Antelmo Camp, which demonstrated a 90% occlusion in the ostial LAD as well as a 90% occlusion in the PDA. Family is at his bedside. Review of telemetry demonstrates atrial fibrillation initially with episodes of rapid antegrade conduction during his initial hospitalization but now with episodes that are better rate controlled. REVIEW OF SYSTEMS: A comprehensive 10-point review of system was performed by chart review and is noted above. FAMILY HISTORY AND SOCIAL HISTORY: Reviewed and essentially unchanged. PHYSICAL EXAMINATION: VITAL SIGNS: The patient's blood pressure is 140s to 160s over 80s to 90s; heart rate of 65 to 85. GENERAL: The patient is intubated. NECK: Supple. PULMONARY: Lungs are clear. GASTROINTESTINAL: Abdomen is soft. EXTREMITIES: No edema. CARDIOVASCULAR: Irregularly irregular, S1, S2. SKIN: No rashes. OBJECTIVE: Data noted above. ASSESSMENT: Mr. Porfirio Arredondo had a history of previous coronary artery disease with a report of myocardial infarction from a few years ago who presented several days ago with a cardiac arrest. The precipitant of the arrest is not entirely clear, and it cannot be determined with certainty whether this was an arrhythmic precipitant initially or in the setting of an acute coronary syndrome. Certainly, with the subsequent history of positive troponin and cardiac catheterization demonstrating fairly severe two-vessel coronary disease, an ischemic precipitant may be the most likely explanation. It would be helpful if we knew if the patient had monomorphic ventricular tachycardia initially, which would suggest scar based arrhythmia or whether this was ischemic ventricular tachycardia (polymorphic ventricular tachycardia/ventricular fibrillation). Regardless, as this is most likely acute coronary syndrome, with the arrhythmia secondary to this, I suggest the patient undergo coronary revascularization, which is being planned in the next several days. After this, he should be evaluated for LifeVest wearable defibrillator. In the interim, he should certainly be maximally beta blocked. From an atrial fibrillation perspective, he has a congestive heart failure, hypertension, age, diabetes, and stroke-vascular disease score of 5, and he should also be maintained on anticoagulant therapy. Certainly, with the presumption of new stents in the next several days, we will have to be very cautious with dual antiplatelet as well as anticoagulation, but this appears to be the most appropriate thing in light of his very high congestive heart failure, hypertension, age, diabetes, and stroke-vascular disease score. As an outpatient, he should have his left ventricular ejection fraction repeated in three months and, if reduced, he is certainly a candidate for a defibrillator at that time. Thank you very much for allowing me to participate in the care of this patient. Bernard Barber MD
[2018-08-18] MEDS: Heparin25000 units/250ml 1/2NS 25,000 UNITS/250 ML BAG IV PRN
[2018-08-18] MEDS: (Novolin R) Insulin Human Regular 100 units/ml vial SC SCH ×5 (00:39→23:43)
--- NOTE | 2018-08-18 02:12 | PN ---
DATE: 08/17/2018 SUBJECTIVE: The patient remains intubated. Noted that he had a cardiac cath and found 90% occlusions of both LAD and PDA and so he remains sedated at this time. PHYSICAL EXAMINATION: GENERAL: He remains intubated. VITAL SIGNS: His temperature is 98.1, pulse 67, blood pressure 139/76, respirations are 18. NECK: Supple. LUNGS: Clear. HEART: S1 and S2. Irregularly irregular. ABDOMEN: Soft, nontender. No guarding, no rigidity present. EXTREMITIES: No pedal edema. Has foot protectors. He is status post cardiac arrest, status post cardiac cath now with respiratory failure, and he is on Zosyn. Cultures were all negative, and I am waiting for his extubation, and we will continue present treatment. hSilpa Sandoval MD
[2018-08-18] MEDS: Piperacillin/Tazobact 3.375 GM in Sodium Chloride 100 ML IVPB SCH ×3 (03:00→18:00)
[2018-08-18 04:41] LABS: BASO % 0.4 % (0.0-2.0); EOS # 0.3 K/uL (0.0-0.7); EOS % 3.4 % (0.0-4.0); HEMOGLOBIN 9.3 g/dL (12.0-18.0); LYMPH # 1.8 K/uL (1.0-4.3); LYMPH % 22.7 % (20.0-40.0); MEAN CELL VOLUME 90.8 fL (80.0-94.0); MEAN PLATELET VOLUME 7.6 fL (7.2-11.7); MONO # 0.6 K/uL (0.0-0.8); MONO % 7.3 % (0.0-10.0); NEUT # 5.2 K/uL (1.8-7.0); NEUT % 66.2 % (50.0-75.0); NRBC % 0.1 % (0.0-2.0); RBC 3.09 Mil/uL (4.40-5.90); RED CELL DISTRIBUTION WIDTH 14.4 % (11.5-14.5); WHITE BLOOD COUNT 7.8 K/uL (4.8-10.8)
[2018-08-18 04:50] LABS: INR 1.2; PROTHROMBIN TIME 13.5 SECONDS (9.7-12.2)
[2018-08-18 05:07] LABS: ALB/GLOB RATIO 1.1 (1.0-2.1); ALBUMIN 3.3 g/dL (3.5-5.0); ALT/SGPT 40 U/L (21-72); AST/SGOT 40 U/L (17-59); BLOOD UREA NITROGEN 33 mg/dL (9-20); CALCIUM 8.2 mg/dl (8.6-10.4); GFR NON-AFRICAN AMERICAN > 60
[2018-08-18 06:32] LABS: ARTERIAL BLOOD GAS HCO3 28.2 mmol/L (21-28); ARTERIAL BLOOD GAS O2 SAT 99.9 % (95-98); ARTERIAL BLOOD GAS PCO2 36 mm/Hg (35-45); ARTERIAL BLOOD GAS PH 7.49 (7.35-7.45); ARTERIAL BLOOD GAS PO2 143 mm/Hg (80-100); ARTERIAL BLOOD GAS TCO2 28.5 mmol/L (22-28)
--- NOTE | 2018-08-18 07:43 | RAD ---
Date of service: 08/18/2018 HISTORY: intubated COMPARISON: Portable chest 08/17/2018. FINDINGS: LUNGS: Endotracheal and nasogastric tubes do not appear significantly changed in position as well as left central venous line. Improved aeration is identified at the bilateral bases indicating diminishing bilateral basilar airspace disease with limited residual at the medial left base and none apparent at the right. PLEURA: Minimal residual pleural effusions are suggested bilaterally. No pneumothorax bilaterally. CARDIOVASCULAR: Calcific atherosclerotic changes are seen related to the thoracic aorta. Cardiac size is stable. Pulmonary vascular congestion is significantly improved, now appearing mild. OSSEOUS STRUCTURES: No significant abnormalities. VISUALIZED UPPER ABDOMEN: Normal. OTHER FINDINGS: None. IMPRESSION: Improved pulmonary vascular congestion significantly with trace residual bilateral pleural effusions and minimal residual potential airspace disease medial left base. Tubes and catheters unchanged in position as imaged.
[2018-08-18] MEDS: Propofol 10 mg/ml 1,000 MG/100 ML VIAL IV PRN ×2 (09:00)
--- NOTE | 2018-08-18 11:23 | CP.CCUPN ---
<Bhargav Amezquita - Last Filed: 08/18/18 11:18> CCU Subjective - Physician Review Subjective (Free Text): PGY-1 Critical Care Progress Note for Dr. Ocampo's service Patient seen and examined at bedside. Patient off extubation. Patient has baseline dementia limiting ROS. Critical Care Time Spent (in minutes): 35 CCU Objective - Vital Signs / Intake & Output Vital Signs (Last 4 hours): Vital Signs Temp Pulse Resp BP Pulse Ox 08/18/18 11:04 151/56 H 08/18/18 08:00 98.4 F 84 14 140/104 H 99 Intake and Output (Last 8hrs): Intake & Output 08/17/18 08/18/18 08/18/18 22:59 06:59 14:59 Intake Total 354.0 493.6 206.8 Output Total 750 1950 Balance -396.0 -1456.4 206.8 Weight 166 lb 12.8 oz Intake: IV 45 157 88 Intake, IV Amount 309.0 336.6 38.8 Left Antecubital 73.6 64.4 18.4 Left Distal Port Internal 85.4 72.2 20.4 Jugular Left Proximal Port 150 200 Internal Jugular Tube Feeding 80 Output: Urine 750 1950 Urethral (Villanueva) 750 1950 Other: # Bowel Movements 1 - Physical Exam Head: Positive for: Normocephalic, Other (brusing with ecchymosis of left eye) Extroacular Muscles: Positive for: EOMI Mouth: Positive for: Moist Mucous Membranes Respiratory/Chest: Positive for: Good Air Exchange, Rhonchi. Negative for: Respiratory Distress Cardiovascular: Positive for: Normal S1, S2, Irregular Rhythm. Negative for: Regular Rate and Rhythm Abdomen: Positive for: Normal Bowel Sounds. Negative for: Tenderness, Distention, Peritoneal Signs Upper Extremity: Positive for: Normal Inspection. Negative for: Cyanosis Lower Extremity: Positive for: Normal Inspection. Negative for: Edema Neurological: Positive for: GCS=15 Skin: Positive for: Dry, Normal Color. Negative for: Warm Psychiatric: Positive for: Alert - Medications Active Medications: Active Medications Generic Name Dose Route Start Last Admin Trade Name Freq PRN Reason Stop Dose Admin Aspirin 81 mg 08/16/18 10:00 08/18/18 09:51 Aspirin Chewable PO 81 mg DAILY JESSE Administration Furosemide 40 mg 08/17/18 23:45 08/18/18 11:04 Lasix IVP 08/19/18 11:46 40 mg Q12H JESSE Administration Propofol 1,000 mg in 100 mls @ 2.041 mls/hr 08/11/18 19:35 08/18/18 09:15 Diprivan IV 0 mcg/kg/min .Q24H PRN 0 mls/hr TITRATE PER MD ORDER Titration Protocol 5 MCG/KG/MIN Piperacillin Sod/Tazobactam 100 mls @ 200 mls/hr 08/12/18 18:00 08/18/18 10:00 Sod 3.375 gm/ Sodium Chloride IVPB 200 mls/hr Q8H JESSE Administration Protocol Heparin Sodium/Sodium Chloride 25,000 units in 250 mls @ 7.646 mls/hr 08/14/18 22:29 08/18/18 00:00 Heparin 06950 Units/250ml 1/2 Normal Saline IV 12 units/kg/hr .Q24H PRN 9.175 mls/hr ADJUST RATE PER PROTOCOL Administration Protocol 10 UNITS/KG/HR Doxycycline Hyclate 100 mg/ 100 mls @ 100 mls/hr 08/15/18 16:00 08/18/18 04:04 Sodium Chloride IVPB 100 mls/hr Q12H JESSE Administration Protocol Insulin Human Regular 0 unit 08/14/18 00:00 08/18/18 06:13 Novolin R SC Not Given Q6H JESSE Protocol Losartan Potassium 25 mg 08/16/18 10:00 08/18/18 09:51 Cozaar PO 25 mg DAILY JESSE Administration Metoprolol Tartrate 50 mg 08/16/18 10:00 08/18/18 09:51 Lopressor PO 50 mg BID JESSE Administration Pantoprazole Sodium 40 mg 08/11/18 15:30 08/18/18 09:50 Protonix Inj IVP 40 mg DAILY JESSE Administration Rosuvastatin Calcium 20 mg 08/17/18 22:00 08/17/18 23:00 Crestor PO 20 mg HS JESSE Administration - Patient Studies Lab Studies: Microbiology Studies 08/12/18 10:00 Blood Culture - Final Blood-Venous NO GROWTH AFTER 5 DAYS 08/12/18 10:30 Blood Culture - Final Blood-Venous NO GROWTH AFTER 5 DAYS Gram Stain - Final TEST NOT PERFORMED Lab Studies 08/18/18 08/18/18 08/18/18 Range/Units 05:18 04:36 04:36 WBC (4.8-10.8) K/uL RBC (4.40-5.90) Mil/uL Hgb (12.0-18.0) g/dL Hct (35.0-51.0) % MCV (80.0-94.0) fL MCH (27.0-31.0) pg MCHC (33.0-37.0) g/dL RDW (11.5-14.5) % Plt Count (130-400) K/uL MPV (7.2-11.7) fL Neut % (Auto) (50.0-75.0) % Lymph % (Auto) (20.0-40.0) % [place] % (Auto) (0.0-10.0) % Eos % (Auto) (0.0-4.0) % Baso % (Auto) (0.0-2.0) % Neut # (Auto) (1.8-7.0) K/uL Lymph # (Auto) (1.0-4.3) K/uL [place] # (Auto) (0.0-0.8) K/uL Eos # (Auto) (0.0-0.7) K/uL Baso # (Auto) (0.0-0.2) K/uL PT 13.5 H (9.7-12.2) SECONDS INR 1.2 APTT 54 H D (21-34) SECONDS Puncture Site R brac pCO2 36 (35-45) mm/Hg pO2 143 H (80-100) mm/Hg HCO3 28.2 H (21-28) mmol/L ABG pH 7.49 H (7.35-7.45) ABG Total CO2 28.5 H (22-28) mmol/L ABG O2 Saturation 99.9 H (95-98) % ABG Base Excess 4.1 H (-2.0-3.0) mmol/L Danny Test Na ABG Potassium 3.2 L (3.6-5.2) mmol/L A-a O2 Difference 133.0 mm/Hg Respiratory Index 0.9 Glucose 118 H (75-110) mg/dl Lactate 1.2 (0.7-2.1) mmol/L Vent Mode Prvc Mechanical Rate 18 FiO2 45.0 % Tidal Volume 450 PEEP 5 Sodium 150.0 H 145 (132-148) mmol/L Potassium 3.4 L (3.6-5.2) mmol/L Chloride 118.0 H 112 H (98-107) mmol/L Carbon Dioxide 26 (22-30) mmol/L Anion Gap 11 (10-20) BUN 33 H (9-20) mg/dL Creatinine 1.1 (0.8-1.5) mg/dL Est GFR ( Amer) > 60 Est GFR (Non-Af Amer) > 60 POC Glucose (mg/dL) (65-110) mg/dL Random Glucose 127 H (75-110) mg/dL Calcium 8.2 L (8.6-10.4) mg/dl Phosphorus 4.3 (2.5-4.5) mg/dL Magnesium 2.0 (1.6-2.3) mg/dL Total Bilirubin 0.7 (0.2-1.3) mg/dL AST 40 (17-59) U/L ALT 40 (21-72) U/L Alkaline Phosphatase 91 (38-126) U/L Total Protein 6.2 L (6.3-8.3) g/dL Albumin 3.3 L (3.5-5.0) g/dL Globulin 2.9 (2.2-3.9) gm/dL Albumin/Globulin Ratio 1.1 (1.0-2.1) Arterial Blood Potassium 3.2 L (3.6-5.2) mmol/L 08/18/18 08/18/18 08/17/18 Range/Units 04:36 04:34 23:43 WBC 7.8 (4.8-10.8) K/uL RBC 3.09 L (4.40-5.90) Mil/uL Hgb 9.3 L (12.0-18.0) g/dL Hct 28.1 L (35.0-51.0) % MCV 90.8 (80.0-94.0) fL MCH 30.0 (27.0-31.0) pg MCHC 33.0 (33.0-37.0) g/dL RDW 14.4 (11.5-14.5) % Plt Count 198 (130-400) K/uL MPV 7.6 (7.2-11.7) fL Neut % (Auto) 66.2 (50.0-75.0) % Lymph % (Auto) 22.7 (20.0-40.0) % [place] % (Auto) 7.3 (0.0-10.0) % Eos % (Auto) 3.4 (0.0-4.0) % Baso % (Auto) 0.4 (0.0-2.0) % Neut # (Auto) 5.2 (1.8-7.0) K/uL Lymph # (Auto) 1.8 (1.0-4.3) K/uL [place] # (Auto) 0.6 (0.0-0.8) K/uL Eos # (Auto) 0.3 (0.0-0.7) K/uL Baso # (Auto) 0.0 (0.0-0.2) K/uL PT (9.7-12.2) SECONDS INR APTT (21-34) SECONDS Puncture Site pCO2 (35-45) mm/Hg pO2 (80-100) mm/Hg HCO3 (21-28) mmol/L ABG pH (7.35-7.45) ABG Total CO2 (22-28) mmol/L ABG O2 Saturation (95-98) % ABG Base Excess (-2.0-3.0) mmol/L Danny Test ABG Potassium (3.6-5.2) mmol/L A-a O2 Difference mm/Hg Respiratory Index Glucose (75-110) mg/dl Lactate (0.7-2.1) mmol/L Vent Mode Mechanical Rate FiO2 % Tidal Volume PEEP Sodium (132-148) mmol/L Potassium (3.6-5.2) mmol/L Chloride (98-107) mmol/L Carbon Dioxide (22-30) mmol/L Anion Gap (10-20) BUN (9-20) mg/dL Creatinine (0.8-1.5) mg/dL Est GFR ( Amer) Est GFR (Non-Af Amer) POC Glucose (mg/dL) 131 H 157 H (65-110) mg/dL Random Glucose (75-110) mg/dL Calcium (8.6-10.4) mg/dl Phosphorus (2.5-4.5) mg/dL Magnesium (1.6-2.3) mg/dL Total Bilirubin (0.2-1.3) mg/dL AST (17-59) U/L ALT (21-72) U/L Alkaline Phosphatase (38-126) U/L Total Protein (6.3-8.3) g/dL Albumin (3.5-5.0) g/dL Globulin (2.2-3.9) gm/dL Albumin/Globulin Ratio (1.0-2.1) Arterial Blood Potassium (3.6-5.2) mmol/L 08/17/18 08/17/18 08/17/18 Range/Units 21:53 17:30 11:14 WBC (4.8-10.8) K/uL RBC (4.40-5.90) Mil/uL Hgb (12.0-18.0) g/dL Hct (35.0-51.0) % MCV (80.0-94.0) fL MCH (27.0-31.0) pg MCHC (33.0-37.0) g/dL RDW (11.5-14.5) % Plt Count (130-400) K/uL MPV (7.2-11.7) fL Neut % (Auto) (50.0-75.0) % Lymph % (Auto) (20.0-40.0) % [place] % (Auto) (0.0-10.0) % Eos % (Auto) (0.0-4.0) % Baso % (Auto) (0.0-2.0) % Neut # (Auto) (1.8-7.0) K/uL Lymph # (Auto) (1.0-4.3) K/uL [place] # (Auto) (0.0-0.8) K/uL Eos # (Auto) (0.0-0.7) K/uL Baso # (Auto) (0.0-0.2) K/uL PT (9.7-12.2) SECONDS INR APTT 48 H D (21-34) SECONDS Puncture Site pCO2 (35-45) mm/Hg pO2 (80-100) mm/Hg HCO3 (21-28) mmol/L ABG pH (7.35-7.45) ABG Total CO2 (22-28) mmol/L ABG O2 Saturation (95-98) % ABG Base Excess (-2.0-3.0) mmol/L Danny Test ABG Potassium (3.6-5.2) mmol/L A-a O2 Difference mm/Hg Respiratory Index Glucose (75-110) mg/dl Lactate (0.7-2.1) mmol/L Vent Mode Mechanical Rate FiO2 % Tidal Volume PEEP Sodium (132-148) mmol/L Potassium (3.6-5.2) mmol/L Chloride (98-107) mmol/L Carbon Dioxide (22-30) mmol/L Anion Gap (10-20) BUN (9-20) mg/dL Creatinine (0.8-1.5) mg/dL Est GFR ( Amer) Est GFR (Non-Af Amer) POC Glucose (mg/dL) 136 H 127 H (65-110) mg/dL Random Glucose (75-110) mg/dL Calcium (8.6-10.4) mg/dl Phosphorus (2.5-4.5) mg/dL Magnesium (1.6-2.3) mg/dL Total Bilirubin (0.2-1.3) mg/dL AST (17-59) U/L ALT (21-72) U/L Alkaline Phosphatase (38-126) U/L Total Protein (6.3-8.3) g/dL Albumin (3.5-5.0) g/dL Globulin (2.2-3.9) gm/dL Albumin/Globulin Ratio (1.0-2.1) Arterial Blood Potassium (3.6-5.2) mmol/L Laboratory Results - last 24 hr 08/17/18 08/17/18 08/17/18 11:14 17:30 21:53 WBC RBC Hgb Hct MCV MCH MCHC RDW Plt Count MPV Neut % (Auto) Lymph % (Auto) [place] % (Auto) Eos % (Auto) Baso % (Auto) Neut # (Auto) Lymph # (Auto) [place] # (Auto) Eos # (Auto) Baso # (Auto) PT INR APTT 48 H D Puncture Site pCO2 pO2 HCO3 ABG pH ABG Total CO2 ABG O2 Saturation ABG Base Excess Danny Test ABG Potassium A-a O2 Difference Respiratory Index Glucose Lactate Vent Mode Mechanical Rate FiO2 Tidal Volume PEEP Sodium Potassium Chloride Carbon Dioxide Anion Gap BUN Creatinine Est GFR ( Amer) Est GFR (Non-Af Amer) POC Glucose (mg/dL) 127 H 136 H Random Glucose Calcium Phosphorus Magnesium Total Bilirubin AST ALT Alkaline Phosphatase Total Protein Albumin Globulin Albumin/Globulin Ratio Arterial Blood Potassium 08/17/18 08/18/18 08/18/18 23:43 04:34 04:36 WBC 7.8 RBC 3.09 L Hgb 9.3 L Hct 28.1 L MCV 90.8 MCH 30.0 MCHC 33.0 RDW 14.4 Plt Count 198 MPV 7.6 Neut % (Auto) 66.2 Lymph % (Auto) 22.7 [place] % (Auto) 7.3 Eos % (Auto) 3.4 Baso % (Auto) 0.4 Neut # (Auto) 5.2 Lymph # (Auto) 1.8 [place] # (Auto) 0.6 Eos # (Auto) 0.3 Baso # (Auto) 0.0 PT INR APTT Puncture Site pCO2 pO2 HCO3 ABG pH ABG Total CO2 ABG O2 Saturation ABG Base Excess Danny Test ABG Potassium A-a O2 Difference Respiratory Index Glucose Lactate Vent Mode Mechanical Rate FiO2 Tidal Volume PEEP Sodium Potassium Chloride Carbon Dioxide Anion Gap BUN Creatinine Est GFR ( Amer) Est GFR (Non-Af Amer) POC Glucose (mg/dL) 157 H 131 H Random Glucose Calcium Phosphorus Magnesium Total Bilirubin AST ALT Alkaline Phosphatase Total Protein Albumin Globulin Albumin/Globulin Ratio Arterial Blood Potassium 08/18/18 08/18/18 08/18/18 04:36 04:36 05:18 WBC RBC Hgb Hct MCV MCH MCHC RDW Plt Count MPV Neut % (Auto) Lymph % (Auto) [place] % (Auto) Eos % (Auto) Baso % (Auto) Neut # (Auto) Lymph # (Auto) [place] # (Auto) Eos # (Auto) Baso # (Auto) PT 13.5 H INR 1.2 APTT 54 H D Puncture Site R brac pCO2 36 pO2 143 H HCO3 28.2 H ABG pH 7.49 H ABG Total CO2 28.5 H ABG O2 Saturation 99.9 H ABG Base Excess 4.1 H Danny Test Na ABG Potassium 3.2 L A-a O2 Difference 133.0 Respiratory Index 0.9 Glucose 118 H Lactate 1.2 Vent Mode Prvc Mechanical Rate 18 FiO2 45.0 Tidal Volume 450 PEEP 5 Sodium 145 150.0 H Potassium 3.4 L Chloride 112 H 118.0 H Carbon Dioxide 26 Anion Gap 11 BUN 33 H Creatinine 1.1 Est GFR ( Amer) > 60 Est GFR (Non-Af Amer) > 60 POC Glucose (mg/dL) Random Glucose 127 H Calcium 8.2 L Phosphorus 4.3 Magnesium 2.0 Total Bilirubin 0.7 AST 40 ALT 40 Alkaline Phosphatase 91 Total Protein 6.2 L Albumin 3.3 L Globulin 2.9 Albumin/Globulin Ratio 1.1 Arterial Blood Potassium 3.2 L Radiology Impressions: Radiology Impressions Chest X-Ray 08/17/18 06:00 Impression: Lines and tubes in stable position. Moderate to severe venous congestion with prominent airspace opacification in the mid to lower lung zones. Moderate bilateral pleural effusions. Atherosclerotic calcification at the aortic knob. Cardiomegaly. Chest X-Ray 08/18/18 07:00 IMPRESSION: Improved pulmonary vascular congestion significantly with trace residual bilateral pleural effusions and minimal residual potential airspace disease medial left base. Tubes and catheters unchanged in position as imaged. Fingerstick Blood Sugar Results: 136 Review of Systems - Review of Systems Systems not reviewed;Unavailable: Dementia Critical Care Progress Note - Extremities/Vascular Does the Patient have a Central Venous Catheter?: Yes Insertion Site: Internal Jugular Vein Does the Patient need a Central Venous Catheter?: Yes Does the Patient have a Villanueva Catheter?: Yes Does the Patient need a Villanueva Catheter?: Yes Catheter Insertion Criteria: Need for accurate measurement of output in critically ill patient - Prophylaxis GI Prophylaxis GI: PPI - Prophylaxis DVT Prophylaxis DVT: Heparin SQ Assessment/Plan - Assessment and Plan (Free Text) Assessment: Patient is an 83 yo male w/ PMH of Alzheimer's disease, CAD, atrial fibrillation, hypertension, hypercholesterolemia, dementia admitted to ICU s/p intubated and cardiac arrest in field. s/p cardiac cath showing proximal occlusion in LAD and PDA. Neuro Extubated; Awake and responsive to questioning CT head shows remote vs chronic infarction in frontal lobe Pulm mainitain spO2>92 CXR shows pulm edema Patient succesfully extubated today; on aerosol mask with 100% oxygen; will wean off as needed Repeat CXR in AM CV Cardiac Arrest in field- rosc achieved EKG in field showed ST elevation, EKG in ED showed Afib w/ diffuse ST segment changes Code Freeze initiated/completed Echo- severely impaired LV EF (25-30); hypokinesis in the apical septal wall, ischemic cardiomyopathy; mild AR repeat troponins elevated- [facility] cath on 08/17- shows LAD and PDA occlusion Heparin drip; Cozaar, Metoprolol, Aspirin, Crestor; Lasix for pulm edema Tele strip shows patient in Afib Patient will need artherectomy and PCI impella assistance with life vest with [facility] at [facility]; re-eval in 3 months for ICD placement GI Protonix; no active issues Endo Q6H accuchecks; ISS Renal no active issues Villanueva for strict Is/Os ID Doxy/Zosyn (08/15 and 08/12 respectively) - concern for aspiration PNA- ID following Disposition: Extubated breathing adequately, Cardiac intervention next week co ntinue heparin/asa DVT ppx: SCDs, heparin GI ppx: protonix Disposition: Patient is extubated, breathing adequately; swallow eval pending; Will get intervention with [facility] next week PGY-1 Bhargav Amezquita Medical Management d/w Dr. Ocampo <Margarito Ocampo S - Last Filed: 08/18/18 16:19> CCU Objective - Vital Signs / Intake & Output Intake and Output (Last 8hrs): Intake & Output 08/18/18 08/18/18 08/18/18 06:59 14:59 22:59 Intake Total 493.6 206.8 Output Total 1950 Balance -1456.4 206.8 Weight 166 lb 12.8 oz Intake: IV 157 88 Intake, IV Amount 336.6 38.8 Left Antecubital 64.4 18.4 Left Distal Port Internal 72.2 20.4 Jugular Left Proximal Port 200 Internal Jugular Tube Feeding 80 Output: Urine 1950 Urethral (Villanueva) 1950 - Medications Active Medications: Active Medications Generic Name Dose Route Start Last Admin Trade Name Freq PRN Reason Stop Dose Admin Aspirin 81 mg 08/16/18 10:00 08/18/18 09:51 Aspirin Chewable PO 81 mg DAILY JESSE Administration Furosemide 40 mg 08/17/18 23:45 08/18/18 11:04 Lasix IVP 08/19/18 11:46 40 mg Q12H JESSE Administration Propofol 1,000 mg in 100 mls @ 2.041 mls/hr 08/11/18 19:35 08/18/18 09:15 Diprivan IV 0 mcg/kg/min .Q24H PRN 0 mls/hr TITRATE PER MD ORDER Titration Protocol 5 MCG/KG/MIN Piperacillin Sod/Tazobactam 100 mls @ 200 mls/hr 08/12/18 18:00 08/18/18 10:00 Sod 3.375 gm/ Sodium Chloride IVPB 200 mls/hr Q8H JESSE Administration Protocol Heparin Sodium/Sodium Chloride 25,000 units in 250 mls @ 7.646 mls/hr 08/14/18 22:29 08/18/18 00:00 Heparin 30956 Units/250ml 1/2 Normal Saline IV 12 units/kg/hr .Q24H PRN 9.175 mls/hr ADJUST RATE PER PROTOCOL Administration Protocol 10 UNITS/KG/HR Doxycycline Hyclate 100 mg/ 100 mls @ 100 mls/hr 08/15/18 16:00 08/18/18 04:04 Sodium Chloride IVPB 100 mls/hr Q12H JESSE Administration Protocol Insulin Human Regular 0 unit 08/14/18 00:00 08/18/18 12:00 Novolin R SC Not Given Q6H JESSE Protocol Losartan Potassium 25 mg 08/16/18 10:00 08/18/18 09:51 Cozaar PO 25 mg DAILY JESSE Administration Metoprolol Tartrate 50 mg 08/16/18 10:00 08/18/18 09:51 Lopressor PO 50 mg BID JESSE Administration Pantoprazole Sodium 40 mg 08/11/18 15:30 08/18/18 09:50 Protonix Inj IVP 40 mg DAILY JESSE Administration Rosuvastatin Calcium 20 mg 08/17/18 22:00 08/17/18 23:00 Crestor PO 20 mg HS JESSE Administration - Patient Studies Lab Studies: Lab Studies 08/18/18 08/18/18 08/18/18 Range/Units 11:30 05:18 04:36 WBC (4.8-10.8) K/uL RBC (4.40-5.90) Mil/uL Hgb (12.0-18.0) g/dL Hct (35.0-51.0) % MCV (80.0-94.0) fL MCH (27.0-31.0) pg MCHC (33.0-37.0) g/dL RDW (11.5-14.5) % Plt Count (130-400) K/uL MPV (7.2-11.7) fL Neut % (Auto) (50.0-75.0) % Lymph % (Auto) (20.0-40.0) % [place] % (Auto) (0.0-10.0) % Eos % (Auto) (0.0-4.0) % Baso % (Auto) (0.0-2.0) % Neut # (Auto) (1.8-7.0) K/uL Lymph # (Auto) (1.0-4.3) K/uL [place] # (Auto) (0.0-0.8) K/uL Eos # (Auto) (0.0-0.7) K/uL Baso # (Auto) (0.0-0.2) K/uL PT 13.5 H (9.7-12.2) SECONDS INR 1.2 APTT 54 H D (21-34) SECONDS Puncture Site R brac pCO2 36 (35-45) mm/Hg pO2 143 H (80-100) mm/Hg HCO3 28.2 H (21-28) mmol/L ABG pH 7.49 H (7.35-7.45) ABG Total CO2 28.5 H (22-28) mmol/L ABG O2 Saturation 99.9 H (95-98) % ABG Base Excess 4.1 H (-2.0-3.0) mmol/L Danny Test Na ABG Potassium 3.2 L (3.6-5.2) mmol/L A-a O2 Difference 133.0 mm/Hg Respiratory Index 0.9 Glucose 118 H (75-110) mg/dl Lactate 1.2 (0.7-2.1) mmol/L Vent Mode Prvc Mechanical Rate 18 FiO2 45.0 % Tidal Volume 450 PEEP 5 Sodium 150.0 H (132-148) mmol/L Potassium (3.6-5.2) mmol/L Chloride 118.0 H (98-107) mmol/L Carbon Dioxide (22-30) mmol/L Anion Gap (10-20) BUN (9-20) mg/dL Creatinine (0.8-1.5) mg/dL Est GFR ( Amer) Est GFR (Non-Af Amer) POC Glucose (mg/dL) 139 H (65-110) mg/dL Random Glucose (75-110) mg/dL Calcium (8.6-10.4) mg/dl Phosphorus (2.5-4.5) mg/dL Magnesium (1.6-2.3) mg/dL Total Bilirubin (0.2-1.3) mg/dL AST (17-59) U/L ALT (21-72) U/L Alkaline Phosphatase (38-126) U/L Total Protein (6.3-8.3) g/dL Albumin (3.5-5.0) g/dL Globulin (2.2-3.9) gm/dL Albumin/Globulin Ratio (1.0-2.1) Arterial Blood Potassium 3.2 L (3.6-5.2) mmol/L 08/18/18 08/18/18 08/18/18 Range/Units 04:36 04:36 04:34 WBC 7.8 (4.8-10.8) K/uL RBC 3.09 L (4.40-5.90) Mil/uL Hgb 9.3 L (12.0-18.0) g/dL Hct 28.1 L (35.0-51.0) % MCV 90.8 (80.0-94.0) fL MCH 30.0 (27.0-31.0) pg MCHC 33.0 (33.0-37.0) g/dL RDW 14.4 (11.5-14.5) % Plt Count 198 (130-400) K/uL MPV 7.6 (7.2-11.7) fL Neut % (Auto) 66.2 (50.0-75.0) % Lymph % (Auto) 22.7 (20.0-40.0) % [place] % (Auto) 7.3 (0.0-10.0) % Eos % (Auto) 3.4 (0.0-4.0) % Baso % (Auto) 0.4 (0.0-2.0) % Neut # (Auto) 5.2 (1.8-7.0) K/uL Lymph # (Auto) 1.8 (1.0-4.3) K/uL [place] # (Auto) 0.6 (0.0-0.8) K/uL Eos # (Auto) 0.3 (0.0-0.7) K/uL Baso # (Auto) 0.0 (0.0-0.2) K/uL PT (9.7-12.2) SECONDS INR APTT (21-34) SECONDS Puncture Site pCO2 (35-45) mm/Hg pO2 (80-100) mm/Hg HCO3 (21-28) mmol/L ABG pH (7.35-7.45) ABG Total CO2 (22-28) mmol/L ABG O2 Saturation (95-98) % ABG Base Excess (-2.0-3.0) mmol/L Danny Test ABG Potassium (3.6-5.2) mmol/L A-a O2 Difference mm/Hg Respiratory Index Glucose (75-110) mg/dl Lactate (0.7-2.1) mmol/L Vent Mode Mechanical Rate FiO2 % Tidal Volume PEEP Sodium 145 (132-148) mmol/L Potassium 3.4 L (3.6-5.2) mmol/L Chloride 112 H (98-107) mmol/L Carbon Dioxide 26 (22-30) mmol/L Anion Gap 11 (10-20) BUN 33 H (9-20) mg/dL Creatinine 1.1 (0.8-1.5) mg/dL Est GFR ( Amer) > 60 Est GFR (Non-Af Amer) > 60 POC Glucose (mg/dL) 131 H (65-110) mg/dL Random Glucose 127 H (75-110) mg/dL Calcium 8.2 L (8.6-10.4) mg/dl Phosphorus 4.3 (2.5-4.5) mg/dL Magnesium 2.0 (1.6-2.3) mg/dL Total Bilirubin 0.7 (0.2-1.3) mg/dL AST 40 (17-59) U/L ALT 40 (21-72) U/L Alkaline Phosphatase 91 (38-126) U/L Total Protein 6.2 L (6.3-8.3) g/dL Albumin 3.3 L (3.5-5.0) g/dL Globulin 2.9 (2.2-3.9) gm/dL Albumin/Globulin Ratio 1.1 (1.0-2.1) Arterial Blood Potassium (3.6-5.2) mmol/L 08/17/18 08/17/18 08/17/18 Range/Units 23:43 21:53 17:30 WBC (4.8-10.8) K/uL RBC (4.40-5.90) Mil/uL Hgb (12.0-18.0) g/dL Hct (35.0-51.0) % MCV (80.0-94.0) fL MCH (27.0-31.0) pg MCHC (33.0-37.0) g/dL RDW (11.5-14.5) % Plt Count (130-400) K/uL MPV (7.2-11.7) fL Neut % (Auto) (50.0-75.0) % Lymph % (Auto) (20.0-40.0) % [place] % (Auto) (0.0-10.0) % Eos % (Auto) (0.0-4.0) % Baso % (Auto) (0.0-2.0) % Neut # (Auto) (1.8-7.0) K/uL Lymph # (Auto) (1.0-4.3) K/uL [place] # (Auto) (0.0-0.8) K/uL Eos # (Auto) (0.0-0.7) K/uL Baso # (Auto) (0.0-0.2) K/uL PT (9.7-12.2) SECONDS INR APTT 48 H D (21-34) SECONDS Puncture Site pCO2 (35-45) mm/Hg pO2 (80-100) mm/Hg HCO3 (21-28) mmol/L ABG pH (7.35-7.45) ABG Total CO2 (22-28) mmol/L ABG O2 Saturation (95-98) % ABG Base Excess (-2.0-3.0) mmol/L Danny Test ABG Potassium (3.6-5.2) mmol/L A-a O2 Difference mm/Hg Respiratory Index Glucose (75-110) mg/dl Lactate (0.7-2.1) mmol/L Vent Mode Mechanical Rate FiO2 % Tidal Volume PEEP Sodium (132-148) mmol/L Potassium (3.6-5.2) mmol/L Chloride (98-107) mmol/L Carbon Dioxide (22-30) mmol/L Anion Gap (10-20) BUN (9-20) mg/dL Creatinine (0.8-1.5) mg/dL Est GFR ( Amer) Est GFR (Non-Af Amer) POC Glucose (mg/dL) 157 H 136 H (65-110) mg/dL Random Glucose (75-110) mg/dL Calcium (8.6-10.4) mg/dl Phosphorus (2.5-4.5) mg/dL Magnesium (1.6-2.3) mg/dL Total Bilirubin (0.2-1.3) mg/dL AST (17-59) U/L ALT (21-72) U/L Alkaline Phosphatase (38-126) U/L Total Protein (6.3-8.3) g/dL Albumin (3.5-5.0) g/dL Globulin (2.2-3.9) gm/dL Albumin/Globulin Ratio (1.0-2.1) Arterial Blood Potassium (3.6-5.2) mmol/L Laboratory Results - last 24 hr 08/17/18 08/17/18 08/17/18 17:30 21:53 23:43 WBC RBC Hgb Hct MCV MCH MCHC RDW Plt Count MPV Neut % (Auto) Lymph % (Auto) [place] % (Auto) Eos % (Auto) Baso % (Auto) Neut # (Auto) Lymph # (Auto) [place] # (Auto) Eos # (Auto) Baso # (Auto) PT INR APTT 48 H D Puncture Site pCO2 pO2 HCO3 ABG pH ABG Total CO2 ABG O2 Saturation ABG Base Excess Danny Test ABG Potassium A-a O2 Difference Respiratory Index Glucose Lactate Vent Mode Mechanical Rate FiO2 Tidal Volume PEEP Sodium Potassium Chloride Carbon Dioxide Anion Gap BUN Creatinine Est GFR ( Amer) Est GFR (Non-Af Amer) POC Glucose (mg/dL) 136 H 157 H Random Glucose Calcium Phosphorus Magnesium Total Bilirubin AST ALT Alkaline Phosphatase Total Protein Albumin Globulin Albumin/Globulin Ratio Arterial Blood Potassium 08/18/18 08/18/18 08/18/18 04:34 04:36 04:36 WBC 7.8 RBC 3.09 L Hgb 9.3 L Hct 28.1 L MCV 90.8 MCH 30.0 MCHC 33.0 RDW 14.4 Plt Count 198 MPV 7.6 Neut % (Auto) 66.2 Lymph % (Auto) 22.7 [place] % (Auto) 7.3 Eos % (Auto) 3.4 Baso % (Auto) 0.4 Neut # (Auto) 5.2 Lymph # (Auto) 1.8 [place] # (Auto) 0.6 Eos # (Auto) 0.3 Baso # (Auto) 0.0 PT INR APTT Puncture Site pCO2 pO2 HCO3 ABG pH ABG Total CO2 ABG O2 Saturation ABG Base Excess Danny Test ABG Potassium A-a O2 Difference Respiratory Index Glucose Lactate Vent Mode Mechanical Rate FiO2 Tidal Volume PEEP Sodium 145 Potassium 3.4 L Chloride 112 H Carbon Dioxide 26 Anion Gap 11 BUN 33 H Creatinine 1.1 Est GFR ( Amer) > 60 Est GFR (Non-Af Amer) > 60 POC Glucose (mg/dL) 131 H Random Glucose 127 H Calcium 8.2 L Phosphorus 4.3 Magnesium 2.0 Total Bilirubin 0.7 AST 40 ALT 40 Alkaline Phosphatase 91 Total Protein 6.2 L Albumin 3.3 L Globulin 2.9 Albumin/Globulin Ratio 1.1 Arterial Blood Potassium 08/18/18 08/18/18 08/18/18 04:36 05:18 11:30 WBC RBC Hgb Hct MCV MCH MCHC RDW Plt Count MPV Neut % (Auto) Lymph % (Auto) [place] % (Auto) Eos % (Auto) Baso % (Auto) Neut # (Auto) Lymph # (Auto) [place] # (Auto) Eos # (Auto) Baso # (Auto) PT 13.5 H INR 1.2 APTT 54 H D Puncture Site R brac pCO2 36 pO2 143 H HCO3 28.2 H ABG pH 7.49 H ABG Total CO2 28.5 H ABG O2 Saturation 99.9 H ABG Base Excess 4.1 H Danny Test Na ABG Potassium 3.2 L A-a O2 Difference 133.0 Respiratory Index 0.9 Glucose 118 H Lactate 1.2 Vent Mode Prvc Mechanical Rate 18 FiO2 45.0 Tidal Volume 450 PEEP 5 Sodium 150.0 H Potassium Chloride 118.0 H Carbon Dioxide Anion Gap BUN Creatinine Est GFR ( Amer) Est GFR (Non-Af Amer) POC Glucose (mg/dL) 139 H Random Glucose Calcium Phosphorus Magnesium Total Bilirubin AST ALT Alkaline Phosphatase Total Protein Albumin Globulin Albumin/Globulin Ratio Arterial Blood Potassium 3.2 L Radiology Impressions: Radiology Impressions Chest X-Ray 08/18/18 07:00 IMPRESSION: Improved pulmonary vascular congestion significantly with trace residual bilateral pleural effusions and minimal residual potential airspace disease medial left base. Tubes and catheters unchanged in position as imaged. Attending/Attestation - Attestation I have personally seen and examined this patient.: Yes I have fully participated in the care of the patient.: Yes I have reviewed all pertinent clinical information: Yes Notes (Text): 08/18/18 16:18 Patient seen and examined in the intensive care unit. Patient extubated after weaning trial Patient is awake and responsive No shortness of breath Status post cardiac cath yesterday Continue present treatment Possible CABG LifeVest
--- NOTE | 2018-08-18 14:12 | CP.PCM.PN ---
Subjective - Date & Time of Evaluation Date of Evaluation: 08/18/18 Time of Evaluation: 14:11 - Subjective Subjective: Patient seen and examined Status post cardiac catheterization and PCI Extubated this a.m. On 100% nonrebreather Objective - Vital Signs/Intake and Output Vital Signs (last 24 hours): Temp Pulse Resp BP Pulse Ox 98.0 F 83 18 128/70 99 08/18/18 12:00 08/18/18 12:01 08/18/18 12:01 08/18/18 12:01 08/18/18 12:01 Intake and Output: 08/18/18 08/18/18 06:59 18:59 Intake Total 579.2 206.8 Output Total 1950 Balance -1370.8 206.8 - Medications Medications: Current Medications Aspirin (Aspirin Chewable) 81 mg PO DAILY [facility] Last Admin: 08/18/18 09:51 Dose: 81 mg Furosemide (Lasix) 40 mg IVP Q12H [facility] Stop: 08/19/18 11:46 Last Admin: 08/18/18 11:04 Dose: 40 mg Propofol (Diprivan) 1,000 mg in 100 mls @ 2.041 mls/hr IV .Q24H PRN; Protocol PRN Reason: TITRATE PER MD ORDER Last Titration: 08/18/18 09:15 Dose: 0 mcg/kg/min, 0 mls/hr Piperacillin Sod/Tazobactam (Sod 3.375 gm/ Sodium Chloride) 100 mls @ 200 mls/hr IVPB Q8H [facility]; Protocol Last Admin: 08/18/18 10:00 Dose: 200 mls/hr Heparin Sodium/Sodium Chloride (Heparin 09841 Units/250ml 1/2 Normal Saline) 25,000 units in 250 mls @ 7.646 mls/hr IV .Q24H PRN; Protocol PRN Reason: ADJUST RATE PER PROTOCOL Last Admin: 08/18/18 00:00 Dose: 12 units/kg/hr, 9.175 mls/hr Doxycycline Hyclate 100 mg/ (Sodium Chloride) 100 mls @ 100 mls/hr IVPB Q12H [facility]; Protocol Last Admin: 08/18/18 04:04 Dose: 100 mls/hr Insulin Human Regular (Novolin R) 0 unit SC Q6H [facility]; Protocol Last Admin: 08/18/18 12:00 Dose: Not Given Losartan Potassium (Cozaar) 25 mg PO DAILY [facility] Last Admin: 08/18/18 09:51 Dose: 25 mg Metoprolol Tartrate (Lopressor) 50 mg PO BID [facility] Last Admin: 08/18/18 09:51 Dose: 50 mg Pantoprazole Sodium (Protonix Inj) 40 mg IVP DAILY [facility] Last Admin: 08/18/18 09:50 Dose: 40 mg Rosuvastatin Calcium (Crestor) 20 mg PO HS [facility] Last Admin: 08/17/18 23:00 Dose: 20 mg - Labs Labs: 08/18/18 04:36 08/18/18 04:36 PT 13.5 SECONDS (9.7-12.2) H 08/18/18 04:36 INR 1.2 08/18/18 04:36 APTT 54 SECONDS (21-34) H D 08/18/18 04:36 - Head Exam Head Exam: NORMAL INSPECTION - Eye Exam Eye Exam: Normal appearance - ENT Exam ENT Exam: Mucous Membranes Moist - Respiratory Exam Respiratory Exam: Rhonchi - Cardiovascular Exam Cardiovascular Exam: REGULAR RHYTHM, +S1, +S2 - GI/Abdominal Exam GI & Abdominal Exam: Soft, Normal Bowel Sounds - Extremities Exam Extremities Exam: Pedal Edema - Neurological Exam Neurological Exam: Alert Assessment and Plan (1) Cardiac arrest Status: Acute (2) Respiratory arrest Status: Acute (3) Congestive heart failure Status: Acute (4) Coronary disease Status: Acute (5) Diabetes Status: Acute (6) Hypertension Status: Acute - Assessment and Plan (Free Text) Plan: Continue oxygen supplementation Continue Zosyn Cultures negative so far Patient is treated for suspicion of aspiration pneumonia Lasix Accu-Chek Insulin sliding scale Metoprolol 50 mg twice a day Losartan 25 mg daily May need BiPAP at night DVT/GI prophylax
--- NOTE | 2018-08-18 14:55 | CP.PCM.PN ---
Subjective - Date & Time of Evaluation Date of Evaluation: 08/18/18 Time of Evaluation: 14:52 - Subjective Subjective: Neurology Follow-Up Note: Mr. Arredondo was evaluated this afternoon in the ICU. Family at bedside. He is post-cardiac cath yesterday with Dr. Camp and was found to have 90% occlusions of both the LAD and PDA. Pt is now extubated and off sedation. Able to follow simple commands. Pt is confused, however, he has advanced dementia and this is his baseline per family. Pt denies h/a, dizziness, visual changes, sob, cough, abd pain, n/v/d. Objective - Vital Signs/Intake and Output Vital Signs (last 24 hours): Temp Pulse Resp BP Pulse Ox 98.0 F 83 18 128/70 99 08/18/18 12:00 08/18/18 12:01 08/18/18 12:01 08/18/18 12:01 08/18/18 12:01 Intake and Output: 08/18/18 08/18/18 06:59 18:59 Intake Total 579.2 206.8 Output Total 1950 Balance -1370.8 206.8 - Medications Medications: Current Medications Aspirin (Aspirin Chewable) 81 mg PO DAILY [facility] Last Admin: 08/18/18 09:51 Dose: 81 mg Furosemide (Lasix) 40 mg IVP Q12H [facility] Stop: 08/19/18 11:46 Last Admin: 08/18/18 11:04 Dose: 40 mg Propofol (Diprivan) 1,000 mg in 100 mls @ 2.041 mls/hr IV .Q24H PRN; Protocol PRN Reason: TITRATE PER MD ORDER Last Titration: 08/18/18 09:15 Dose: 0 mcg/kg/min, 0 mls/hr Piperacillin Sod/Tazobactam (Sod 3.375 gm/ Sodium Chloride) 100 mls @ 200 mls/hr IVPB Q8H [facility]; Protocol Last Admin: 08/18/18 10:00 Dose: 200 mls/hr Heparin Sodium/Sodium Chloride (Heparin 36067 Units/250ml 1/2 Normal Saline) 25,000 units in 250 mls @ 7.646 mls/hr IV .Q24H PRN; Protocol PRN Reason: ADJUST RATE PER PROTOCOL Last Admin: 08/18/18 00:00 Dose: 12 units/kg/hr, 9.175 mls/hr Doxycycline Hyclate 100 mg/ (Sodium Chloride) 100 mls @ 100 mls/hr IVPB Q12H [facility]; Protocol Last Admin: 08/18/18 04:04 Dose: 100 mls/hr Insulin Human Regular (Novolin R) 0 unit SC Q6H [facility]; Protocol Last Admin: 08/18/18 12:00 Dose: Not Given Losartan Potassium (Cozaar) 25 mg PO DAILY [facility] Last Admin: 08/18/18 09:51 Dose: 25 mg Metoprolol Tartrate (Lopressor) 50 mg PO BID [facility] Last Admin: 08/18/18 09:51 Dose: 50 mg Pantoprazole Sodium (Protonix Inj) 40 mg IVP DAILY [facility] Last Admin: 08/18/18 09:50 Dose: 40 mg Rosuvastatin Calcium (Crestor) 20 mg PO HS [facility] Last Admin: 08/17/18 23:00 Dose: 20 mg - Labs Labs: 08/18/18 04:36 08/18/18 04:36 PT 13.5 SECONDS (9.7-12.2) H 08/18/18 04:36 INR 1.2 08/18/18 04:36 APTT 54 SECONDS (21-34) H D 08/18/18 04:36 - Constitutional Appears: Well, Non-toxic, No Acute Distress - Head Exam Head Exam: ATRAUMATIC, NORMAL INSPECTION, NORMOCEPHALIC - Eye Exam Eye Exam: EOMI, Normal appearance, PERRL Pupil Exam: NORMAL ACCOMODATION, PERRL - ENT Exam ENT Exam: Mucous Membranes Moist - Neck Exam Neck Exam: Full ROM, Normal Inspection - Respiratory Exam Respiratory Exam: NORMAL BREATHING PATTERN Additional comments: on venti mask - Cardiovascular Exam Cardiovascular Exam: Irregular Rhythm - GI/Abdominal Exam GI & Abdominal Exam: Soft - Extremities Exam Extremities Exam: Full ROM. absent: Calf Tenderness, Pedal Edema - Neurological Exam Neurological Exam: Alert, Awake, CN II-XII Intact. absent: Oriented x3 Neuro motor strength exam: Left Upper Extremity: 4 (mastic floor layer 4/5), Right Upper Extremity: 4 (mastic floor layer 4/5), Left Lower Extremity: 4, Right Lower Extremity: 4 Additional comments: Pt is awake, alert; disoriented and confused. Able to follows simple commands Speech not clear, however, he is speaking---was extubated this morning. Equal strength bue and ble Unable to assess fine motor 2/2 pt not following commands Sensation equal and intact No tremors, no clonus, reflexes brisk b/l - Psychiatric Exam Psychiatric exam: Normal Affect, Normal Mood (has advanced dementia; is at baseline) - Skin Skin Exam: Normal Color Assessment and Plan (1) Cardiac arrest Assessment & Plan: Mr. Arredondo is an 83 y/o M who was admitted after collapsing while out with his and became unresponsive; post-cardiac arrest. He is now extubated, off sedation; on venti mask and tolerating well. He is for cardiac procedure next week at [facility] with cardiology. His recent head imaging shows chronic infarcts; no acute infarct or hemorrhage. Today he is at his baseline mental status; he has advanced dementia. He is doing well considering recent events. No new neurologic problems or symptoms. Imaging reviewed: -CT Head (08/14/18): There are no acute findings -CT Head (08/11/18):Small hypodensity involving the right frontal vertex appears consistent with chronic or remote infarction. Moderate nonspecific white matter changes. Fluid within the right mastoid air cells; correlate clinically for mastoiditis. Generalized atrophy. Additional incidental findings as above. -ECHO (08/12/18): afib; EF 25-30% -Continue ASA and statin for secondary stroke prevention. -PT/OT when medically stable. -Cardiology on board -Heparin drip maintained by primary team and cardiology. -Continue current ICU management -Notify neuro team of any change in pt's condition. No further neuro intervention. Please reconsult prn. Thank you for allowing us tot participate in this pt's care. Case discussed with Dr. Willett Status: Acute
--- NOTE | 2018-08-18 20:35 | CP.PCM.PN ---
Subjective - Date & Time of Evaluation Date of Evaluation: 08/18/18 Time of Evaluation: 19:00 - Subjective Subjective: dictated Objective - Vital Signs/Intake and Output Vital Signs (last 24 hours): Temp Pulse Resp BP Pulse Ox 98.6 F 75 18 158/92 H 96 08/18/18 20:00 08/18/18 19:00 08/18/18 19:00 08/18/18 19:00 08/18/18 20:00 Intake and Output: 08/18/18 08/19/18 18:59 06:59 Intake Total 498.8 9.2 Output Total 1999 Balance -1501.2 9.2 - Medications Medications: Current Medications Aspirin (Aspirin Chewable) 81 mg PO DAILY [facility] Last Admin: 08/18/18 09:51 Dose: 81 mg Furosemide (Lasix) 40 mg IVP Q12H [facility] Stop: 08/19/18 11:46 Last Admin: 08/18/18 11:04 Dose: 40 mg Propofol (Diprivan) 1,000 mg in 100 mls @ 2.041 mls/hr IV .Q24H PRN; Protocol PRN Reason: TITRATE PER MD ORDER Last Titration: 08/18/18 09:15 Dose: 0 mcg/kg/min, 0 mls/hr Piperacillin Sod/Tazobactam (Sod 3.375 gm/ Sodium Chloride) 100 mls @ 200 mls/hr IVPB Q8H [facility]; Protocol Last Admin: 08/18/18 18:00 Dose: 200 mls/hr Heparin Sodium/Sodium Chloride (Heparin 33303 Units/250ml 1/2 Normal Saline) 25,000 units in 250 mls @ 7.646 mls/hr IV .Q24H PRN; Protocol PRN Reason: ADJUST RATE PER PROTOCOL Last Admin: 08/18/18 00:00 Dose: 12 units/kg/hr, 9.175 mls/hr Doxycycline Hyclate 100 mg/ (Sodium Chloride) 100 mls @ 100 mls/hr IVPB Q12H [facility]; Protocol Last Admin: 08/18/18 15:00 Dose: 100 mls/hr Insulin Human Regular (Novolin R) 0 unit SC Q6H [facility]; Protocol Last Admin: 08/18/18 18:51 Dose: Not Given Losartan Potassium (Cozaar) 25 mg PO DAILY [facility] Last Admin: 08/18/18 09:51 Dose: 25 mg Metoprolol Tartrate (Lopressor) 50 mg PO BID [facility] Last Admin: 08/18/18 18:23 Dose: 50 mg Pantoprazole Sodium (Protonix Inj) 40 mg IVP DAILY [facility] Last Admin: 08/18/18 09:50 Dose: 40 mg Rosuvastatin Calcium (Crestor) 20 mg PO HS [facility] Last Admin: 08/17/18 23:00 Dose: 20 mg - Labs Labs: 08/18/18 04:36 08/18/18 04:36 PT 13.5 SECONDS (9.7-12.2) H 08/18/18 04:36 INR 1.2 08/18/18 04:36 APTT 54 SECONDS (21-34) H D 08/18/18 04:36
--- NOTE | 2018-08-19 00:23 | PN ---
DATE: 08/18/2018 SUBJECTIVE: The patient was extubated. He was comfortable in bed. He still has a TLC in the left IJ. Ventilator was like standby at this time. He is not complaining of anything. His left eye bruising and ecchymosis is old now. PHYSICAL EXAMINATION: HEENT: Head is normocephalic. NECK: Supple. LUNGS: Clear. He has occasional rhonchi, otherwise clear. HEART: S1 and S2 are irregularly irregular. ABDOMEN: Soft, nontender. No guarding, no rigidity present. EXTREMITIES: Have no edema, clubbing or cyanosis. NEUROLOGIC: He is very alert. LABORATORY DATA: Labs show white count is 7.8, hemoglobin 9.3, hematocrit 28.1, platelet count is 198. INR is 1.2. He had an ABG done today which shows 7.49, CO2 was 20, bicarb was 28.2, and pO2 was 143. Sodium is 150. ASSESSMENT AND PLAN: He is hypernatremic. He is status post extubation now. He had a cardiac catheterization. He was admitted with fall and a cardiac arrest. He is now extubated and is still in intensive care with hypernatremia. He is on Zosyn and doxycycline at this time, covering for pneumonia. He also is getting furosemide. He is on heparin drip. We will follow with other consultants. Shilpa Sandoval MD
[2018-08-19] MEDS: Piperacillin/Tazobact 3.375 GM in Sodium Chloride 100 ML IVPB SCH ×3 (02:02→17:00)
[2018-08-19] MEDS: Heparin25000 units/250ml 1/2NS 25,000 UNITS/250 ML BAG IV PRN (02:04)
[2018-08-19] MEDS: (Novolin R) Insulin Human Regular 100 units/ml vial SC SCH ×3 (05:45→17:51)
--- NOTE | 2018-08-19 06:27 | CP.PCM.PN ---
Subjective - Date & Time of Evaluation Date of Evaluation: 08/18/18 Time of Evaluation: 18:30 - Subjective Subjective: Patient seen and evaluated S/P cardiac arrest/V Tach Isch Cardiomyopathy with low EF (20%) Calcified CAD (LAD Ostial 95%, RCA-PDA 99%) High risk for CABG Needs Coronary Orbital or Rotational atherectomy/Impella and Pacemaker assists Needs Open heart surgery hospital for Complex High risk PCI (Can't be done in [facility]) Family prefers [facility] due to proximity Scheduled for Thursday Objective - Vital Signs/Intake and Output Vital Signs (last 24 hours): Temp Pulse Resp BP Pulse Ox 98.1 F 82 15 155/94 H 100 08/19/18 04:00 08/19/18 06:00 08/19/18 06:00 08/19/18 06:00 08/19/18 06:00 Intake and Output: 08/18/18 08/19/18 18:59 06:59 Intake Total 498.8 900.4 Output Total 2000 1200 Balance -1501.2 -299.6 - Medications Medications: Current Medications Aspirin (Aspirin Chewable) 81 mg PO DAILY [facility] Last Admin: 08/18/18 09:51 Dose: 81 mg Furosemide (Lasix) 40 mg IVP Q12H [facility] Stop: 08/19/18 11:46 Last Admin: 08/18/18 23:39 Dose: 40 mg Propofol (Diprivan) 1,000 mg in 100 mls @ 2.041 mls/hr IV .Q24H PRN; Protocol PRN Reason: TITRATE PER MD ORDER Last Titration: 08/18/18 09:15 Dose: 0 mcg/kg/min, 0 mls/hr Piperacillin Sod/Tazobactam (Sod 3.375 gm/ Sodium Chloride) 100 mls @ 200 mls/hr IVPB Q8H [facility]; Protocol Last Admin: 08/19/18 02:02 Dose: 200 mls/hr Heparin Sodium/Sodium Chloride (Heparin 36619 Units/250ml 1/2 Normal Saline) 25,000 units in 250 mls @ 7.646 mls/hr IV .Q24H PRN; Protocol PRN Reason: ADJUST RATE PER PROTOCOL Last Admin: 08/19/18 02:04 Dose: 12 units/kg/hr, 9.175 mls/hr Doxycycline Hyclate 100 mg/ (Sodium Chloride) 100 mls @ 100 mls/hr IVPB Q12H [facility]; Protocol Last Admin: 08/19/18 03:05 Dose: 100 mls/hr Insulin Human Regular (Novolin R) 0 unit SC Q6H [facility]; Protocol Last Admin: 08/19/18 05:45 Dose: Not Given Losartan Potassium (Cozaar) 25 mg PO DAILY [facility] Last Admin: 08/18/18 09:51 Dose: 25 mg Metoprolol Tartrate (Lopressor) 50 mg PO BID [facility] Last Admin: 08/18/18 18:23 Dose: 50 mg Pantoprazole Sodium (Protonix Inj) 40 mg IVP DAILY [facility] Last Admin: 08/18/18 09:50 Dose: 40 mg Rosuvastatin Calcium (Crestor) 20 mg PO HS [facility] Last Admin: 08/18/18 22:04 Dose: 20 mg - Labs Labs: 08/18/18 04:36 08/18/18 04:36 PT 13.5 SECONDS (9.7-12.2) H 08/18/18 04:36 INR 1.2 08/18/18 04:36 APTT 54 SECONDS (21-34) H D 08/18/18 04:36
[2018-08-19 06:33] LABS: BASO % 0.2 % (0.0-2.0); EOS # 0.2 K/uL (0.0-0.7); EOS % 2.1 % (0.0-4.0); LYMPH # 2.2 K/uL (1.0-4.3); LYMPH % 20.2 % (20.0-40.0); MEAN CELL VOLUME 92.1 fL (80.0-94.0); MEAN CORPUSCULAR HEMOGLOBIN 31.2 pg (27.0-31.0); MEAN CORPUSCULAR HGB CONC 33.9 g/dL (33.0-37.0); MEAN PLATELET VOLUME 8.5 fL (7.2-11.7); MONO # 0.8 K/uL (0.0-0.8); MONO % 7.8 % (0.0-10.0); NEUT # 7.6 K/uL (1.8-7.0); NEUT % 69.7 % (50.0-75.0); NRBC % 0.1 % (0.0-2.0); RBC 3.2 Mil/uL (4.40-5.90); RED CELL DISTRIBUTION WIDTH 14.6 % (11.5-14.5); WHITE BLOOD COUNT 10.9 K/uL (4.8-10.8)
[2018-08-19 07:01] LABS: ALB/GLOB RATIO 1.1 (1.0-2.1); ALBUMIN 3.6 g/dL (3.5-5.0); ALT/SGPT 33 U/L (21-72); AST/SGOT 34 U/L (17-59); BLOOD UREA NITROGEN 33 mg/dL (9-20); CALCIUM 8.7 mg/dl (8.6-10.4); GFR NON-AFRICAN AMERICAN 58
--- NOTE | 2018-08-19 08:33 | RAD ---
Chest x-ray single frontal view History follow-up. Post extubation. Comparison: 08/18/2018 Findings: Interval removal of an endotracheal tube. Left central venous catheter tip extending to the confluence of the right axillary/SVC junction. Moderate to severe venous congestion. Confluent consolidative changes in the right hilar region and bilateral lung bases. Atherosclerotic calcification and plaque in the aorta. Cardiomegaly. Degenerative changes in the spine and shoulders. Impression: Interval removal of an endotracheal tube. Left central venous catheter tip extending to the confluence of the right axillary/SVC junction. Moderate to severe venous congestion. Confluent consolidative changes in the right hilar region and bilateral lung bases. Atherosclerotic calcification and plaque in the aorta. Cardiomegaly. Degenerative changes in the spine and shoulders.
--- NOTE | 2018-08-19 13:12 | CP.CCUPN ---
<Bhargav Amezquita - Last Filed: 08/19/18 13:09> CCU Subjective - Physician Review Subjective (Free Text): PGY-1 Critical Care Progress Note for Dr. Santiago's service Patient seen and examined at bedside. Patient off extubation. Patient has baseline dementia limiting ROS. 08/19/18 13:37 Critical Care Time Spent (in minutes): 35 CCU Objective - Vital Signs / Intake & Output Vital Signs (Last 4 hours): Vital Signs Temp Pulse Resp BP Pulse Ox 08/19/18 12:00 97.5 F L 74 17 144/76 100 08/19/18 11:00 94 H 17 152/84 H 100 08/19/18 10:02 92 H 14 148/76 100 08/19/18 10:00 80 17 90 L Intake and Output (Last 8hrs): Intake & Output 08/18/18 08/19/18 08/19/18 22:59 06:59 14:59 Intake Total 323.6 763.6 296.0 Output Total 1999 1200 Balance -1676.4 -436.4 296.0 Weight 149 lb 3.2 oz Intake: IV 250 Intake, IV Amount 223.6 273.6 296.0 Left Antecubital 73.6 73.6 46.0 Left Proximal Port 150 200 250 Internal Jugular Oral 240 0 Tube Feeding 100 Output: Urine 1999 1200 Urethral (Villanueva) 2000 1200 Other: # Bowel Movements 1 - Physical Exam Head: Positive for: Normocephalic, Other (brusing with ecchymosis of left eye) Pupils: Positive for: PERRL Extroacular Muscles: Positive for: EOMI Mouth: Positive for: Moist Mucous Membranes Respiratory/Chest: Positive for: Clear to Auscultation, Good Air Exchange. Negative for: Respiratory Distress Cardiovascular: Positive for: Normal S1, S2, Irregular Rhythm. Negative for: Regular Rate and Rhythm Abdomen: Positive for: Normal Bowel Sounds. Negative for: Tenderness, Distention, Peritoneal Signs Upper Extremity: Positive for: Normal Inspection. Negative for: Cyanosis Lower Extremity: Positive for: Normal Inspection. Negative for: Edema Neurological: Positive for: GCS=15 Skin: Positive for: Dry, Normal Color. Negative for: Warm Psychiatric: Positive for: Alert - Medications Active Medications: Active Medications Generic Name Dose Route Start Last Admin Trade Name Freq PRN Reason Stop Dose Admin Aspirin 81 mg 08/16/18 10:00 08/19/18 09:43 Aspirin Chewable PO 81 mg DAILY JESSE Administration Piperacillin Sod/Tazobactam 100 mls @ 200 mls/hr 08/12/18 18:00 08/19/18 09:00 Sod 3.375 gm/ Sodium Chloride IVPB 200 mls/hr Q8H JESSE Administration Protocol Heparin Sodium/Sodium Chloride 25,000 units in 250 mls @ 7.646 mls/hr 08/14/18 22:29 08/19/18 02:04 Heparin 07634 Units/250ml 1/2 Normal Saline IV 12 units/kg/hr .Q24H PRN 9.175 mls/hr ADJUST RATE PER PROTOCOL Administration Protocol 10 UNITS/KG/HR Doxycycline Hyclate 100 mg/ 100 mls @ 100 mls/hr 08/15/18 16:00 08/19/18 03: 05 Sodium Chloride IVPB 100 mls/hr Q12H JESSE Administration Protocol Potassium Chloride 20 meq in 100 mls @ 50 mls/hr 08/19/18 07:45 08/19/18 09:15 Potassium Chloride 20 Meq/100 Ml IVPB 08/19/18 13:44 50 mls/hr Q2H JESSE Administration Insulin Human Regular 0 unit 08/14/18 00:00 08/19/18 05:45 Novolin R SC Not Given Q6H JESSE Protocol Losartan Potassium 25 mg 08/16/18 10:00 08/19/18 09:43 Cozaar PO 25 mg DAILY JESSE Administration Metoprolol Tartrate 50 mg 08/16/18 10:00 08/19/18 09:43 Lopressor PO 50 mg BID JESSE Administration Pantoprazole Sodium 40 mg 08/11/18 15:30 08/19/18 09:43 Protonix Inj IVP 40 mg DAILY JESSE Administration Rosuvastatin Calcium 20 mg 08/17/18 22:00 08/18/18 22:04 Crestor PO 20 mg HS JESSE Administration - Patient Studies Lab Studies: Lab Studies 08/19/18 08/19/18 08/19/18 Range/Units 06:26 06:26 06:26 WBC 10.9 H (4.8-10.8) K/uL RBC 3.20 L (4.40-5.90) Mil/uL Hgb 10.0 L (12.0-18.0) g/dL Hct 29.4 L (35.0-51.0) % MCV 92.1 (80.0-94.0) fL MCH 31.2 H (27.0-31.0) pg MCHC 33.9 (33.0-37.0) g/dL RDW 14.6 H (11.5-14.5) % Plt Count 238 (130-400) K/uL MPV 8.5 (7.2-11.7) fL Neut % (Auto) 69.7 (50.0-75.0) % Lymph % (Auto) 20.2 (20.0-40.0) % [place] % (Auto) 7.8 (0.0-10.0) % Eos % (Auto) 2.1 (0.0-4.0) % Baso % (Auto) 0.2 (0.0-2.0) % Neut # (Auto) 7.6 H (1.8-7.0) K/uL Lymph # (Auto) 2.2 (1.0-4.3) K/uL [place] # (Auto) 0.8 (0.0-0.8) K/uL Eos # (Auto) 0.2 (0.0-0.7) K/uL Baso # (Auto) 0.0 (0.0-0.2) K/uL APTT 47 H D (21-34) SECONDS Sodium 145 (132-148) mmol/L Potassium 3.3 L (3.6-5.2) mmol/L Chloride 108 H (98-107) mmol/L Carbon Dioxide 30 (22-30) mmol/L Anion Gap 10 (10-20) BUN 33 H (9-20) mg/dL Creatinine 1.2 (0.8-1.5) mg/dL Est GFR ( Amer) > 60 Est GFR (Non-Af Amer) 58 POC Glucose (mg/dL) (65-110) mg/dL Random Glucose 109 (75-110) mg/dL Calcium 8.7 (8.6-10.4) mg/dl Phosphorus 4.1 (2.5-4.5) mg/dL Magnesium 2.0 (1.6-2.3) mg/dL Total Bilirubin 0.8 (0.2-1.3) mg/dL AST 34 (17-59) U/L ALT 33 (21-72) U/L Alkaline Phosphatase 101 (38-126) U/L Total Protein 6.9 (6.3-8.3) g/dL Albumin 3.6 (3.5-5.0) g/dL Globulin 3.3 (2.2-3.9) gm/dL Albumin/Globulin Ratio 1.1 (1.0-2.1) 08/19/18 08/18/18 08/18/18 Range/Units 05:39 23:43 18:35 WBC (4.8-10.8) K/uL RBC (4.40-5.90) Mil/uL Hgb (12.0-18.0) g/dL Hct (35.0-51.0) % MCV (80.0-94.0) fL MCH (27.0-31.0) pg MCHC (33.0-37.0) g/dL RDW (11.5-14.5) % Plt Count (130-400) K/uL MPV (7.2-11.7) fL Neut % (Auto) (50.0-75.0) % Lymph % (Auto) (20.0-40.0) % [place] % (Auto) (0.0-10.0) % Eos % (Auto) (0.0-4.0) % Baso % (Auto) (0.0-2.0) % Neut # (Auto) (1.8-7.0) K/uL Lymph # (Auto) (1.0-4.3) K/uL [place] # (Auto) (0.0-0.8) K/uL Eos # (Auto) (0.0-0.7) K/uL Baso # (Auto) (0.0-0.2) K/uL APTT (21-34) SECONDS Sodium (132-148) mmol/L Potassium (3.6-5.2) mmol/L Chloride (98-107) mmol/L Carbon Dioxide (22-30) mmol/L Anion Gap (10-20) BUN (9-20) mg/dL Creatinine (0.8-1.5) mg/dL Est GFR ( Amer) Est GFR (Non-Af Amer) POC Glucose (mg/dL) 107 130 H 120 H (65-110) mg/dL Random Glucose (75-110) mg/dL Calcium (8.6-10.4) mg/dl Phosphorus (2.5-4.5) mg/dL Magnesium (1.6-2.3) mg/dL Total Bilirubin (0.2-1.3) mg/dL AST (17-59) U/L ALT (21-72) U/L Alkaline Phosphatase (38-126) U/L Total Protein (6.3-8.3) g/dL Albumin (3.5-5.0) g/dL Globulin (2.2-3.9) gm/dL Albumin/Globulin Ratio (1.0-2.1) Laboratory Results - last 24 hr 08/18/18 08/18/18 08/19/18 18:35 23:43 05:39 WBC RBC Hgb Hct MCV MCH MCHC RDW Plt Count MPV Neut % (Auto) Lymph % (Auto) Mer[place] % (Auto) Eos % (Auto) Baso % (Auto) Neut # (Auto) Lymph # (Auto) [place] # (Auto) Eos # (Auto) Baso # (Auto) APTT Sodium Potassium Chloride Carbon Dioxide Anion Gap BUN Creatinine Est GFR ( Amer) Est GFR (Non-Af Amer) POC Glucose (mg/dL) 120 H 130 H 107 Random Glucose Calcium Phosphorus Magnesium Total Bilirubin AST ALT Alkaline Phosphatase Total Protein Albumin Globulin Albumin/Globulin Ratio 08/19/18 08/19/18 08/19/18 06:26 06:26 06:26 WBC 10.9 H RBC 3.20 L Hgb 10.0 L Hct 29.4 L MCV 92.1 MCH 31.2 H MCHC 33.9 RDW 14.6 H Plt Count 238 MPV 8.5 Neut % (Auto) 69.7 Lymph % (Auto) 20.2 Mer[place]ether % (Auto) 7.8 Eos % (Auto) 2.1 Baso % (Auto) 0.2 Neut # (Auto) 7.6 H Lymph # (Auto) 2.2 [place] # (Auto) 0.8 Eos # (Auto) 0.2 Baso # (Auto) 0.0 APTT 47 H D Sodium 145 Potassium 3.3 L Chloride 108 H Carbon Dioxide 30 Anion Gap 10 BUN 33 H Creatinine 1.2 Est GFR ( Amer) > 60 Est GFR (Non-Af Amer) 58 POC Glucose (mg/dL) Random Glucose 109 Calcium 8.7 Phosphorus 4.1 Magnesium 2.0 Total Bilirubin 0.8 AST 34 ALT 33 Alkaline Phosphatase 101 Total Protein 6.9 Albumin 3.6 Globulin 3.3 Albumin/Globulin Ratio 1.1 Radiology Impressions: Radiology Impressions Chest X-Ray 08/19/18 06:00 Impression: Interval removal of an endotracheal tube. Left central venous catheter tip extending to the confluence of the right axillary/SVC junction. Moderate to severe venous congestion. Confluent consolidative changes in the right hilar region and bilateral lung bases. Atherosclerotic calcification and plaque in the aorta. Cardiomegaly. Degenerative changes in the spine and shoulders. Fingerstick Blood Sugar Results: 107 Review of Systems - Review of Systems Systems not reviewed;Unavailable: Dementia Critical Care Progress Note - Extremities/Vascular Does the Patient have a Central Venous Catheter?: Yes Insertion Site: Internal Jugular Vein Does the Patient need a Central Venous Catheter?: Yes Does the Patient have a Villanueva Catheter?: No Does the Patient need a Villanueva Catheter?: No - Prophylaxis GI Prophylaxis GI: PPI - Prophylaxis DVT Prophylaxis DVT: Heparin SQ - Nutrition Nutrition: Nutrition Category Date Time Status Pureed [Dysphagia/Modified Consistency Diet] [DIET] Diets 08/19/18 Breakfast Active Assessment/Plan - Assessment and Plan (Free Text) Assessment: Patient is an 83 yo male w/ PMH of Alzheimer's disease w/dementia , CAD, atrial fibrillation, hypertension, hypercholesterolemia, admitted to ICU s/p intubated and cardiac arrest in field. s/p cardiac cath showing proximal occlusion in LAD and PDA. Neuro Awake and responsive to questioning; Baseline dementia CT head shows remote vs chronic infarction in frontal lobe Pulm mainitain spO2>92 patient oxygenating well on room air CV Cardiac Arrest in field- rosc achieved EKG in field showed ST elevation, EKG in ED showed Afib w/ diffuse ST segment changes Echo- severely impaired LV EF (25-30); hypokinesis in the apical septal wall, ischemic cardiomyopathy; mild AR repeat troponins elevated- Conrado cath on 08/17- shows LAD and PDA occlusion Heparin drip; Cozaar, Metoprolol, Aspirin, Crestor Patient will need artherectomy and PCI impella assistance with life vest with [facility] at [facility]; re-eval in 3 months for ICD placement GI Protonix; no active issues Pureed feeds (ask family what patient eats at home can be swithced) Endo Insulin sliding scale; Q6 accucheck; Sugars controlled Renal Repleted potassium KCl x 3 (20meq) Villanueva for strict Is/Os ID Doxy/Zosyn (08/15 and 08/12 respectively) - concern for aspiration PNA- ID following Disposition: Continue heparin drip; PCI intervention with impella and artherectomy; lifevest for 3 months; re-evaluate for ICD placement; Continue current ICU management DVT ppx: SCDs, heparin GI ppx: protonix Disposition: Patient is extubated, breathing adequately; swallow eval pending; Will get intervention with [facility]ado next week PGY-1 Bhargav Amezquita Medical Management d/w Dr. Santiago <Catalino Santiago - Last Filed: 08/19/18 20:07> CCU Objective - Vital Signs / Intake & Output Vital Signs (Last 4 hours): Vital Signs Pulse Resp BP Pulse Ox 08/19/18 17:01 82 13 143/84 98 08/19/18 17:00 84 14 98 Intake and Output (Last 8hrs): Intake & Output 08/19/18 08/19/18 08/19/18 06:59 14:59 22:59 Intake Total 763.6 1123.6 557.6 Output Total 1200 1 Balance -436.4 1123.6 556.6 Weight 149 lb 3.2 oz Intake: IV 250 Intake, IV Amount 273.6 523.6 77.6 Left Antecubital 73.6 73.6 27.6 Left Proximal Port 200 450 50 Internal Jugular Oral 240 600 480 Output: Urine 1200 Urethral (Villanueva) 1200 Urine/Stool Mix 1 - Medications Active Medications: Active Medications Generic Name Dose Route Start Last Admin Trade Name Freq PRN Reason Stop Dose Admin Aspirin 81 mg 08/16/18 10:00 08/19/18 09:43 Aspirin Chewable PO 81 mg DAILY JESSE Administration Piperacillin Sod/Tazobactam 100 mls @ 200 mls/hr 08/12/18 18:00 08/19/18 17:00 Sod 3.375 gm/ Sodium Chloride IVPB 200 mls/hr Q8H JESSE Administration Protocol Heparin Sodium/Sodium Chloride 25,000 units in 250 mls @ 7.646 mls/hr 08/14/18 22:29 08/19/18 02:04 Heparin 32434 Units/250ml 1/2 Normal Saline IV 12 units/kg/hr .Q24H PRN 9.175 mls/hr ADJUST RATE PER PROTOCOL Administration Protocol 10 UNITS/KG/HR Doxycycline Hyclate 100 mg/ 100 mls @ 100 mls/hr 08/15/18 16:00 08/19/18 15:00 Sodium Chloride IVPB 100 mls/hr Q12H JESSE Administration Protocol Insulin Human Regular 0 unit 08/14/18 00:00 08/19/18 17:51 Novolin R SC 1 u Q6H JESSE Administration Protocol Losartan Potassium 25 mg 08/16/18 10:00 08/19/18 09:43 Cozaar PO 25 mg DAILY JESSE Administration Metoprolol Tartrate 50 mg 08/16/18 10:00 08/19/18 17:52 Lopressor PO 50 mg BID JESSE Administration Pantoprazole Sodium 40 mg 08/11/18 15:30 08/19/18 09:43 Protonix Inj IVP 40 mg DAILY JESSE Administration Rosuvastatin Calcium 20 mg 08/17/18 22:00 08/18/18 22:04 Crestor PO 20 mg HS JESSE Administration - Patient Studies Lab Studies: Lab Studies 08/19/18 08/19/18 08/19/18 Range/Units 17:44 11:17 06:26 WBC (4.8-10.8) K/uL RBC (4.40-5.90) Mil/uL Hgb (12.0-18.0) g/dL Hct (35.0-51.0) % MCV (80.0-94.0) fL MCH (27.0-31.0) pg MCHC (33.0-37.0) g/dL RDW (11.5-14.5) % Plt Count (130-400) K/uL MPV (7.2-11.7) fL Neut % (Auto) (50.0-75.0) % Lymph % (Auto) (20.0-40.0) % Mer[place] % (Auto) (0.0-10.0) % Eos % (Auto) (0.0-4.0) % Baso % (Auto) (0.0-2.0) % Neut # (Auto) (1.8-7.0) K/uL Lymph # (Auto) (1.0-4.3) K/uL Mer[place]ether # (Auto) (0.0-0.8) K/uL Eos # (Auto) (0.0-0.7) K/uL Baso # (Auto) (0.0-0.2) K/uL APTT (21-34) SECONDS Sodium 145 (132-148) mmol/L Potassium 3.3 L (3.6-5.2) mmol/L Chloride 108 H (98-107) mmol/L Carbon Dioxide 30 (22-30) mmol/L Anion Gap 10 (10-20) BUN 33 H (9-20) mg/dL Creatinine 1.2 (0.8-1.5) mg/dL Est GFR ( Amer) > 60 Est GFR (Non-Af Amer) 58 POC Glucose (mg/dL) 173 H 183 H (65-110) mg/dL Random Glucose 109 (75-110) mg/dL Calcium 8.7 (8.6-10.4) mg/dl Phosphorus 4.1 (2.5-4.5) mg/dL Magnesium 2.0 (1.6-2.3) mg/dL Total Bilirubin 0.8 (0.2-1.3) mg/dL AST 34 (17-59) U/L ALT 33 (21-72) U/L Alkaline Phosphatase 101 (38-126) U/L Total Protein 6.9 (6.3-8.3) g/dL Albumin 3.6 (3.5-5.0) g/dL Globulin 3.3 (2.2-3.9) gm/dL Albumin/Globulin Ratio 1.1 (1.0-2.1) 08/19/18 08/19/18 08/19/18 Range/Units 06:26 06:26 05:39 WBC 10.9 H (4.8-10.8) K/uL RBC 3.20 L (4.40-5.90) Mil/uL Hgb 10.0 L (12.0-18.0) g/dL Hct 29.4 L (35.0-51.0) % MCV 92.1 (80.0-94.0) fL MCH 31.2 H (27.0-31.0) pg MCHC 33.9 (33.0-37.0) g/dL RDW 14.6 H (11.5-14.5) % Plt Count 238 (130-400) K/uL MPV 8.5 (7.2-11.7) fL Neut % (Auto) 69.7 (50.0-75.0) % Lymph % (Auto) 20.2 (20.0-40.0) % [place] % (Auto) 7.8 (0.0-10.0) % Eos % (Auto) 2.1 (0.0-4.0) % Baso % (Auto) 0.2 (0.0-2.0) % Neut # (Auto) 7.6 H (1.8-7.0) K/uL Lymph # (Auto) 2.2 (1.0-4.3) K/uL [place] # (Auto) 0.8 (0.0-0.8) K/uL Eos # (Auto) 0.2 (0.0-0.7) K/uL Baso # (Auto) 0.0 (0.0-0.2) K/uL APTT 47 H D (21-34) SECONDS Sodium (132-148) mmol/L Potassium (3.6-5.2) mmol/L Chloride (98-107) mmol/L Carbon Dioxide (22-30) mmol/L Anion Gap (10-20) BUN (9-20) mg/dL Creatinine (0.8-1.5) mg/dL Est GFR ( Amer) Est GFR (Non-Af Amer) POC Glucose (mg/dL) 107 (65-110) mg/dL Random Glucose (75-110) mg/dL Calcium (8.6-10.4) mg/dl Phosphorus (2.5-4.5) mg/dL Magnesium (1.6-2.3) mg/dL Total Bilirubin (0.2-1.3) mg/dL AST (17-59) U/L ALT (21-72) U/L Alkaline Phosphatase (38-126) U/L Total Protein (6.3-8.3) g/dL Albumin (3.5-5.0) g/dL Globulin (2.2-3.9) gm/dL Albumin/Globulin Ratio (1.0-2.1) 08/18/18 Range/Units 23:43 WBC (4.8-10.8) K/uL RBC (4.40-5.90) Mil/uL Hgb (12.0-18.0) g/dL Hct (35.0-51.0) % MCV (80.0-94.0) fL MCH (27.0-31.0) pg MCHC (33.0-37.0) g/dL RDW (11.5-14.5) % Plt Count (130-400) K/uL MPV (7.2-11.7) fL Neut % (Auto) (50.0-75.0) % Lymph % (Auto) (20.0-40.0) % [place] % (Auto) (0.0-10.0) % Eos % (Auto) (0.0-4.0) % Baso % (Auto) (0.0-2.0) % Neut # (Auto) (1.8-7.0) K/uL Lymph # (Auto) (1.0-4.3) K/uL [place] # (Auto) (0.0-0.8) K/uL Eos # (Auto) (0.0-0.7) K/uL Baso # (Auto) (0.0-0.2) K/uL APTT (21-34) SECONDS Sodium (132-148) mmol/L Potassium (3.6-5.2) mmol/L Chloride (98-107) mmol/L Carbon Dioxide (22-30) mmol/L Anion Gap (10-20) BUN (9-20) mg/dL Creatinine (0.8-1.5) mg/dL Est GFR ( Amer) Est GFR (Non-Af Amer) POC Glucose (mg/dL) 130 H (65-110) mg/dL Random Glucose (75-110) mg/dL Calcium (8.6-10.4) mg/dl Phosphorus (2.5-4.5) mg/dL Magnesium (1.6-2.3) mg/dL Total Bilirubin (0.2-1.3) mg/dL AST (17-59) U/L ALT (21-72) U/L Alkaline Phosphatase (38-126) U/L Total Protein (6.3-8.3) g/dL Albumin (3.5-5.0) g/dL Globulin (2.2-3.9) gm/dL Albumin/Globulin Ratio (1.0-2.1) Laboratory Results - last 24 hr 08/18/18 08/19/18 08/19/18 23:43 05:39 06:26 WBC 10.9 H RBC 3.20 L Hgb 10.0 L Hct 29.4 L MCV 92.1 MCH 31.2 H MCHC 33.9 RDW 14.6 H Plt Count 238 MPV 8.5 Neut % (Auto) 69.7 Lymph % (Auto) 20.2 [place] % (Auto) 7.8 Eos % (Auto) 2.1 Baso % (Auto) 0.2 Neut # (Auto) 7.6 H Lymph # (Auto) 2.2 [place] # (Auto) 0.8 Eos # (Auto) 0.2 Baso # (Auto) 0.0 APTT Sodium Potassium Chloride Carbon Dioxide Anion Gap BUN Creatinine Est GFR ( Amer) Est GFR (Non-Af Amer) POC Glucose (mg/dL) 130 H 107 Random Glucose Calcium Phosphorus Magnesium Total Bilirubin AST ALT Alkaline Phosphatase Total Protein Albumin Globulin Albumin/Globulin Ratio 08/19/18 08/19/18 08/19/18 06:26 06:26 11:17 WBC RBC Hgb Hct MCV MCH MCHC RDW Plt Count MPV Neut % (Auto) Lymph % (Auto) [place] % (Auto) Eos % (Auto) Baso % (Auto) Neut # (Auto) Lymph # (Auto) [place] # (Auto) Eos # (Auto) Baso # (Auto) APTT 47 H D Sodium 145 Potassium 3.3 L Chloride 108 H Carbon Dioxide 30 Anion Gap 10 BUN 33 H Creatinine 1.2 Est GFR ( Amer) > 60 Est GFR (Non-Af Amer) 58 POC Glucose (mg/dL) 183 H Random Glucose 109 Calcium 8.7 Phosphorus 4.1 Magnesium 2.0 Total Bilirubin 0.8 AST 34 ALT 33 Alkaline Phosphatase 101 Total Protein 6.9 Albumin 3.6 Globulin 3.3 Albumin/Globulin Ratio 1.1 08/19/18 17:44 WBC RBC Hgb Hct MCV MCH MCHC RDW Plt Count MPV Neut % (Auto) Lymph % (Auto) [place] % (Auto) Eos % (Auto) Baso % (Auto) Neut # (Auto) Lymph # (Auto) [place] # (Auto) Eos # (Auto) Baso # (Auto) APTT Sodium Potassium Chloride Carbon Dioxide Anion Gap BUN Creatinine Est GFR ( Amer) Est GFR (Non-Af Amer) POC Glucose (mg/dL) 173 H Random Glucose Calcium Phosphorus Magnesium Total Bilirubin AST ALT Alkaline Phosphatase Total Protein Albumin Globulin Albumin/Globulin Ratio Radiology Impressions: Radiology Impressions Chest X-Ray 08/19/18 06:00 Impression: Interval removal of an endotracheal tube. Left central venous catheter tip extending to the confluence of the right axillary/SVC junction. Moderate to severe venous congestion. Confluent consolidative changes in the right hilar region and bilateral lung bases. Atherosclerotic calcification and plaque in the aorta. Cardiomegaly. Degenerative changes in the spine and shoulders. Critical Care Progress Note - Nutrition Nutrition: Nutrition Category Date Time Status Pureed [Dysphagia/Modified Consistency Diet] [DIET] Diets 08/19/18 Breakfast Active Attending/Attestation - Attestation I have personally seen and examined this patient.: Yes I have fully participated in the care of the patient.: Yes I have reviewed all pertinent clinical information: Yes Notes (Text): 08/19/18 20:07 Today: August The Patient was seen and examined at the bedside, Medical records reviewed, and management issues were discussed and formulated with the house staff. I have reviewed all the relevant clinical, laboratory, hemodynamic, radiographic data and medications Events reviewed Pain issues, skin care, head of the bed elevation, glycemic control were addressed. Agree with above resident's assessment and treatment plans of care as transcribed in Dr. Amezquita's note.
--- NOTE | 2018-08-19 13:43 | CP.PCM.PN ---
Subjective - Date & Time of Evaluation Date of Evaluation: 08/19/18 Time of Evaluation: 13:43 Objective - Vital Signs/Intake and Output Vital Signs (last 24 hours): Temp Pulse Resp BP Pulse Ox 97.5 F L 74 17 144/76 100 08/19/18 12:00 08/19/18 12:00 08/19/18 12:00 08/19/18 12:00 08/19/18 12:00 Intake and Output: 08/19/18 08/19/18 06:59 18:59 Intake Total 900.4 296.0 Output Total 1200 Balance -299.6 296.0 - Medications Medications: Current Medications Aspirin (Aspirin Chewable) 81 mg PO DAILY [facility] Last Admin: 08/19/18 09:43 Dose: 81 mg Piperacillin Sod/Tazobactam (Sod 3.375 gm/ Sodium Chloride) 100 mls @ 200 m ls/hr IVPB Q8H [facility]; Protocol Last Admin: 08/19/18 09:00 Dose: 200 mls/hr Heparin Sodium/Sodium Chloride (Heparin 38886 Units/250ml 1/2 Normal Saline) 25,000 units in 250 mls @ 7.646 mls/hr IV .Q24H PRN; Protocol PRN Reason: ADJUST RATE PER PROTOCOL Last Admin: 08/19/18 02:04 Dose: 12 units/kg/hr, 9.175 mls/hr Doxycycline Hyclate 100 mg/ (Sodium Chloride) 100 mls @ 100 mls/hr IVPB Q12H JESSE; Protocol Last Admin: 08/19/18 03:05 Dose: 100 mls/hr Potassium Chloride (Potassium Chloride 20 Meq/100 Ml) 20 meq in 100 mls @ 50 mls/hr IVPB Q2H JESSE Stop: 08/19/18 13:44 Last Admin: 08/19/18 09:15 Dose: 50 mls/hr Insulin Human Regular (Novolin R) 0 unit SC Q6H JESSE; Protocol Last Admin: 08/19/18 13:00 Dose: 1 u Losartan Potassium (Cozaar) 25 mg PO DAILY [facility] Last Admin: 08/19/18 09:43 Dose: 25 mg Metoprolol Tartrate (Lopressor) 50 mg PO BID [facility] Last Admin: 08/19/18 09:43 Dose: 50 mg Pantoprazole Sodium (Protonix Inj) 40 mg IVP DAILY [facility] Last Admin: 08/19/18 09:43 Dose: 40 mg Rosuvastatin Calcium (Crestor) 20 mg PO HS [facility] Last Admin: 08/18/18 22:04 Dose: 20 mg - Labs Labs: 08/19/18 06:26 08/19/18 06:26 PT 13.5 SECONDS (9.7-12.2) H 08/18/18 04:36 INR 1.2 08/18/18 04:36 APTT 47 SECONDS (21-34) H D 08/19/18 06:26 Assessment and Plan (1) Cardiac arrest Status: Acute (2) Respiratory arrest Status: Acute
--- NOTE | 2018-08-19 22:40 | CP.PCM.PN ---
Subjective - Date & Time of Evaluation Date of Evaluation: 08/19/18 Time of Evaluation: 18:15 - Subjective Subjective: Patient seen and evaluated. Patient off extubation. CCU Objective - Physical Exam Head: Positive for: Normocephalic, Other (brusing with ecchymosis of left eye) Pupils: Positive for: PERRL Extroacular Muscles: Positive for: EOMI Mouth: Positive for: Moist Mucous Membranes Respiratory/Chest: Positive for: Clear to Auscultation, Good Air Exchange. Negative for: Respiratory Distress Cardiovascular: Positive for: Normal S1, S2, Irregular Rhythm. Negative for: Regular Rate and Rhythm Abdomen: Positive for: Normal Bowel Sounds. Negative for: Tenderness, Distention, Peritoneal Signs Upper Extremity: Positive for: Normal Inspection. Negative for: Cyanosis Lower Extremity: Positive for: Normal Inspection. Negative for: Edema Neurological: Positive for: GCS=15 Skin: Positive for: Dry, Normal Color. Negative for: Warm Psychiatric: Positive for: Alert Assessment/Plan - Assessment and Plan (Free Text) Assessment: Patient is an 83 yo male w/ PMH of Alzheimer's disease w/dementia , CAD, atrial fibrillation, hypertension, hypercholesterolemia, admitted to ICU s/p intubated and cardiac arrest in field. s/p cardiac cath showing proximal occlusion in LAD and PDA. Neuro Awake and responsive to questioning; Baseline dementia CT head shows remote vs chronic infarction in frontal lobe Pulm mainitain spO2>92 patient oxygenating well on room air CV Cardiac Arrest in field- rosc achieved EKG in field showed ST elevation, EKG in ED showed Afib w/ diffuse ST segment changes Echo- severely impaired LV EF (25-30); hypokinesis in the apical septal wall, ischemic cardiomyopathy; mild AR repeat troponins elevated- Conrado cath on 08/17- shows LAD and PDA occlusion Heparin drip; Cozaar, Metoprolol, Aspirin, Crestor Patient will need artherectomy and PCI impella assistance with life vest; re- eval in 3 months for ICD placement GI Protonix; no active issues Pureed feeds (ask family what patient eats at home can be swithced) Endo Insulin sliding scale; Q6 accucheck; Sugars controlled Renal Repleted potassium KCl x 3 (20meq) Villanueva for strict Is/Os ID Doxy/Zosyn (08/15 and 1/3 respectively) - concern for aspiration PNA- ID following Disposition: Continue heparin drip; PCI intervention with impella and artherectomy; lifevest for 3 months; re-evaluate for ICD placement; Continue current ICU management DVT ppx: SCDs, heparin GI ppx: protonix Objective - Vital Signs/Intake and Output Vital Signs (last 24 hours): Temp Pulse Resp BP Pulse Ox 98.4 F 88 14 159/108 H 100 08/19/18 20:00 08/19/18 22:00 08/19/18 22:00 08/19/18 22:00 08/19/18 22:00 Intake and Output: 08/19/18 08/20/18 18:59 06:59 Intake Total 1681.2 Output Total 1 Balance 1680.2 - Medications Medications: Current Medications Aspirin (Aspirin Chewable) 81 mg PO DAILY [facility] Last Admin: 08/19/18 09:43 Dose: 81 mg Piperacillin Sod/Tazobactam (Sod 3.375 gm/ Sodium Chloride) 100 mls @ 200 mls/hr IVPB Q8H [facility]; Protocol Last Admin: 08/19/18 17:00 Dose: 200 mls/hr Heparin Sodium/Sodium Chloride (Heparin 74216 Units/250ml 1/2 Normal Saline) 25,000 units in 250 mls @ 7.646 mls/hr IV .Q24H PRN; Protocol PRN Reason: ADJUST RATE PER PROTOCOL Last Admin: 08/19/18 02:04 Dose: 12 units/kg/hr, 9.175 mls/hr Doxycycline Hyclate 100 mg/ (Sodium Chloride) 100 mls @ 100 mls/hr IVPB Q12H [facility]; Protocol Last Admin: 08/19/18 15:00 Dose: 100 mls/hr Insulin Human Regular (Novolin R) 0 unit SC Q6H [facility]; Protocol Last Admin: 08/19/18 17:51 Dose: 1 u Losartan Potassium (Cozaar) 25 mg PO DAILY [facility] Last Admin: 08/19/18 09:43 Dose: 25 mg Metoprolol Tartrate (Lopressor) 50 mg PO BID [facility] Last Admin: 08/19/18 17:52 Dose: 50 mg Pantoprazole Sodium (Protonix Inj) 40 mg IVP DAILY [facility] Last Admin: 08/19/18 09:43 Dose: 40 mg Rosuvastatin Calcium (Crestor) 20 mg PO HS [facility] Last Admin: 08/19/18 21:57 Dose: 20 mg - Labs Labs: 08/19/18 06:26 08/19/18 06:26 PT 13.5 SECONDS (9.7-12.2) H 08/18/18 04:36 INR 1.2 08/18/18 04:36 APTT 47 SECONDS (21-34) H D 08/19/18 06:26
[2018-08-20] MEDS: (Novolin R) Insulin Human Regular 100 units/ml vial SC SCH ×5 (00:05→22:19)
--- NOTE | 2018-08-20 00:37 | PN ---
DATE: 08/19/2018 SUBJECTIVE: The patient was seen today. He has been extubated. He was comfortable but he keeps on talking and half of the talking the family said they are irrelevant, but he left to talk and he does that in the past also according to the family member. PHYSICAL EXAMINATION: VITAL SIGNS: He was afebrile, pulse of 82, blood pressure 143/84, respirations are 16. GENERAL: He appears comfortable, in no acute respiratory distress. HEENT: He still has a triple-lumen which probably does discontinue. The bruising and ecchymosis of the left eye has improved. NECK: Supple. LUNGS: Clear. No crackles or rales present. HEART: S1 and S2 are irregularly irregular. ABDOMEN: Soft, nontender. No guarding. No rigidity present. EXTREMITIES: Have no edema. LABORATORY DATA: Labs are noted. Labs show white count is 10.9, hemoglobin 10, hematocrit 29.4, platelet count is 238. Potassium is 3.3, is probably being supplemented. Sugar is 173. ASSESSMENT AND PLAN: He is going to have some intervention done. I need to see Dr. Camp's note when completed. left anterior descending has proximal 95% calcific stenosis and atherectomy and percutaneous coronary intervention of left anterior descending and right coronary artery with Impella assistance and a LifeVest and implantable cardioverter-defibrillator evaluation after three months. So that, this is the plan per Cardiology at this time. The last chest x-ray was done today, and it shows [id number] congestion, left central venous catheter in the superior vena cava, confluent consolidative changes in the right hilar region and basilar lung bases, atherosclerotic calcification of the aorta, cardiomegaly, degenerative changes in the spine and shoulder. So at this time, he may have pneumonia along with the failure. We will continue the antibiotics. He did have a high white count. The white count is increasing. He is on Zosyn and doxycycline. Random was 10.1 a few days ago. I was just to make sure we send a urine to exclude Legionella. We can discontinue doxycycline. We will follow. Shilpa Sandoval MD
[2018-08-20] MEDS: Piperacillin/Tazobact 3.375 GM in Sodium Chloride 100 ML IVPB SCH ×3 (01:40→17:00)
[2018-08-20] MEDS: Heparin25000 units/250ml 1/2NS 25,000 UNITS/250 ML BAG IV PRN (05:25)
[2018-08-20 06:28] LABS: BASO % 0.3 % (0.0-2.0); EOS # 0.3 K/uL (0.0-0.7); EOS % 2.2 % (0.0-4.0); HEMOGLOBIN 10.7 g/dL (12.0-18.0); LYMPH # 2.2 K/uL (1.0-4.3); LYMPH % 19.1 % (20.0-40.0); MEAN CELL VOLUME 93.1 fL (80.0-94.0); MEAN CORPUSCULAR HEMOGLOBIN 30.2 pg (27.0-31.0); MEAN CORPUSCULAR HGB CONC 32.5 g/dL (33.0-37.0); MEAN PLATELET VOLUME 8.2 fL (7.2-11.7); MONO # 0.8 K/uL (0.0-0.8); MONO % 7.2 % (0.0-10.0); NEUT # 8.1 K/uL (1.8-7.0); NEUT % 71.2 % (50.0-75.0); RBC 3.54 Mil/uL (4.40-5.90); RED CELL DISTRIBUTION WIDTH 14.5 % (11.5-14.5); WHITE BLOOD COUNT 11.4 K/uL (4.8-10.8)
[2018-08-20 06:45] LABS: ALB/GLOB RATIO 1.1 (1.0-2.1); ALBUMIN 3.5 g/dL (3.5-5.0); ALT/SGPT 31 U/L (21-72); AST/SGOT 34 U/L (17-59); BLOOD UREA NITROGEN 34 mg/dL (9-20); CALCIUM 8.7 mg/dl (8.6-10.4); GFR NON-AFRICAN AMERICAN > 60
--- NOTE | 2018-08-20 11:59 | CP.PCM.PN ---
<Taylor Siegel - Last Filed: 08/20/18 18:25> Subjective - Date & Time of Evaluation Date of Evaluation: 08/20/18 Time of Evaluation: 11:54 - Subjective Subjective: PGY3 cardio progress note Patient seen and examined at bedside. No acute events overnight. Pt is resting comfortably in bed. Denies having any SOB, CP, abd pain, N/V/D/C, F/C. Objective - Vital Signs/Intake and Output Vital Signs (last 24 hours): Temp Pulse Resp BP Pulse Ox 97.3 F L 90 19 147/77 76 L 08/20/18 07:43 08/20/18 10:33 08/20/18 10:33 08/20/18 10:33 08/20/18 10:33 Intake and Output: 08/20/18 08/20/18 06:59 18:59 Intake Total 250 Balance 250 - Medications Medications: Current Medications Aspirin (Aspirin Chewable) 81 mg PO DAILY [facility] Last Admin: 08/20/18 10:33 Dose: 81 mg Piperacillin Sod/Tazobactam (Sod 3.375 gm/ Sodium Chloride) 100 mls @ 200 mls/hr IVPB Q8H [facility]; Protocol Last Admin: 08/20/18 10:00 Dose: 200 mls/hr Heparin Sodium/Sodium Chloride (Heparin 08377 Units/250ml 1/2 Normal Saline) 25,000 units in 250 mls @ 7.646 mls/hr IV .Q24H PRN; Protocol PRN Reason: ADJUST RATE PER PROTOCOL Last Admin: 08/20/18 05:25 Dose: 12 units/kg/hr, 9.175 mls/hr Doxycycline Hyclate 100 mg/ (Sodium Chloride) 100 mls @ 100 mls/hr IVPB Q12H [facility]; Protocol Last Admin: 08/20/18 03:41 Dose: 100 mls/hr Insulin Human Regular (Novolin R) 0 unit SC ACHS [facility]; Protocol Losartan Potassium (Cozaar) 25 mg PO DAILY [facility] Last Admin: 08/20/18 10:33 Dose: 25 mg Metoprolol Tartrate (Lopressor) 50 mg PO BID [facility] Last Admin: 08/20/18 10:33 Dose: 50 mg Pantoprazole Sodium (Protonix Inj) 40 mg IVP DAILY [facility] Last Admin: 08/20/18 10:33 Dose: 40 mg Rosuvastatin Calcium (Crestor) 20 mg PO HS [facility] Last Admin: 08/19/18 21:57 Dose: 20 mg - Labs Labs: 08/20/18 06:21 08/20/18 06:21 PT 13.5 SECONDS (9.7-12.2) H 08/18/18 04:36 INR 1.2 08/18/18 04:36 APTT 49 SECONDS (21-34) H 08/20/18 06:21 - Constitutional Appears: Non-toxic, No Acute Distress - Head Exam Head Exam: ATRAUMATIC, NORMOCEPHALIC - ENT Exam ENT Exam: Mucous Membranes Moist - Respiratory Exam Respiratory Exam: Clear to Ausculation Bilateral. absent: Rales, Rhonchi, Wheezes - Cardiovascular Exam Cardiovascular Exam: REGULAR RHYTHM, +S1, +S2 - GI/Abdominal Exam GI & Abdominal Exam: Soft. absent: Guarding, Rigid, Tenderness - Psychiatric Exam Psychiatric exam: Normal Affect, Normal Mood - Skin Skin Exam: Dry, Intact, Normal Color, Warm Assessment and Plan - Assessment and Plan (Free Text) Assessment: 83 year old male with past medical history of CAD, A fib, HTN, HLD, dementia is s/p cardiac arrest. Cardiac arrest s/p ROSC - Pt extubated and downgraded to tele CAD - Cardiac cath done on 08/17/18 showed LAD and PDA occlusion - Plan for artherectomy with impella [place] [facility] [place]. Patient will need life vest for 3 months after procedure and eventually ICD. - Will continue heparin and aspirin - Continue BB with Lopressor 50 mg po BID and statin therapy with Crestor 20 mg po HS A fib - CHADSVASc score >2. - Currently on aspirin and heparin drip - Continue rate control with Loprossor DM - Per primary management Case discussed with attending, Dr. Camp <Antelmo Camp - Last Filed: 08/20/18 18:47> Objective - Vital Signs/Intake and Output Vital Signs (last 24 hours): Temp Pulse Resp BP Pulse Ox 98.2 F 77 22 131/64 100 08/20/18 16:00 08/20/18 16:00 08/20/18 16:00 08/20/18 16:00 08/20/18 16:00 Intake and Output: 08/20/18 08/20/18 06:59 18:59 Intake Total 250 Balance 250 - Medications Medications: Current Medications Aspirin (Aspirin Chewable) 81 mg PO DAILY [facility] Last Admin: 08/20/18 10:33 Dose: 81 mg Piperacillin Sod/Tazobactam (Sod 3.375 gm/ Sodium Chloride) 100 mls @ 200 mls/hr IVPB Q8H [facility]; Protocol Last Admin: 08/20/18 17:00 Dose: 200 mls/hr Heparin Sodium/Sodium Chloride (Heparin 46251 Units/250ml 1/2 Normal Saline) 25,000 units in 250 mls @ 7.646 mls/hr IV .Q24H PRN; Protocol PRN Reason: ADJUST RATE PER PROTOCOL Last Admin: 08/20/18 05:25 Dose: 12 units/kg/hr, 9.175 mls/hr Doxycycline Hyclate 100 mg/ (Sodium Chloride) 100 mls @ 100 mls/hr IVPB Q12H [facility]; Protocol Last Admin: 08/20/18 15:00 Dose: 100 mls/hr Insulin Human Regular (Novolin R) 0 unit SC ACHS [facility]; Protocol Last Admin: 08/20/18 16:57 Dose: Not Given Losartan Potassium (Cozaar) 25 mg PO DAILY [facility] Last Admin: 08/20/18 10:33 Dose: 25 mg Metoprolol Tartrate (Lopressor) 50 mg PO BID [facility] Last Admin: 08/20/18 17:07 Dose: 50 mg Pantoprazole Sodium (Protonix Inj) 40 mg IVP DAILY [facility] Last Admin: 08/20/18 10:33 Dose: 40 mg Rosuvastatin Calcium (Crestor) 20 mg PO HS [facility] Last Admin: 08/19/18 21:57 Dose: 20 mg - Labs Labs: 08/20/18 06:21 08/20/18 06:21 PT 13.5 SECONDS (9.7-12.2) H 08/18/18 04:36 INR 1.2 08/18/18 04:36 APTT 49 SECONDS (21-34) H 08/20/18 06:21 Assessment and Plan - Assessment and Plan (Free Text) Assessment: Patient seen and evaluated personally by me. Plan of care d/w the medical van driver and as documented
--- NOTE | 2018-08-20 18:23 | CP.PCM.PN ---
Subjective - Date & Time of Evaluation Date of Evaluation: 08/20/18 Time of Evaluation: 18:22 Objective - Vital Signs/Intake and Output Vital Signs (last 24 hours): Temp Pulse Resp BP Pulse Ox 98.2 F 77 22 131/64 100 08/20/18 16:00 08/20/18 16:00 08/20/18 16:00 08/20/18 16:00 08/20/18 16:00 Intake and Output: 08/20/18 08/20/18 06:59 18:59 Intake Total 250 Balance 250 - Medications Medications: Current Medications Aspirin (Aspirin Chewable) 81 mg PO DAILY [facility] Last Admin: 08/20/18 10:33 Dose: 81 mg Piperacillin Sod/Tazobactam (Sod 3.375 gm/ Sodium Chloride) 100 mls @ 200 mls/hr IVPB Q8H [facility]; Protocol Last Admin: 08/20/18 17:00 Dose: 200 mls/hr Heparin Sodium/Sodium Chloride (Heparin 04471 Units/250ml 1/2 Normal Saline) 25,000 units in 250 mls @ 7.646 mls/hr IV .Q24H PRN; Protocol PRN Reason: ADJUST RATE PER PROTOCOL Last Admin: 08/20/18 05:25 Dose: 12 units/kg/hr, 9.175 mls/hr Doxycycline Hyclate 100 mg/ (Sodium Chloride) 100 mls @ 100 mls/hr IVPB Q12H [facility]; Protocol Last Admin: 08/20/18 15:00 Dose: 100 mls/hr Insulin Human Regular (Novolin R) 0 unit SC ACHS [facility]; Protocol Last Admin: 08/20/18 16:57 Dose: Not Given Losartan Potassium (Cozaar) 25 mg PO DAILY [facility] Last Admin: 08/20/18 10:33 Dose: 25 mg Metoprolol Tartrate (Lopressor) 50 mg PO BID [facility] Last Admin: 08/20/18 17:07 Dose: 50 mg Pantoprazole Sodium (Protonix Inj) 40 mg IVP DAILY [facility] Last Admin: 08/20/18 10:33 Dose: 40 mg Rosuvastatin Calcium (Crestor) 20 mg PO HS [facility] Last Admin: 08/19/18 21:57 Dose: 20 mg - Labs Labs: 08/20/18 06:21 08/20/18 06:21 PT 13.5 SECONDS (9.7-12.2) H 08/18/18 04:36 INR 1.2 08/18/18 04:36 APTT 49 SECONDS (21-34) H 08/20/18 06:21 Assessment and Plan (1) Cardiac arrest Status: Acute (2) Respiratory arrest Status: Acute
--- NOTE | 2018-08-20 21:52 | CP.PCM.PN ---
Subjective - Date & Time of Evaluation Date of Evaluation: 08/20/18 Time of Evaluation: 16:10 - Subjective Subjective: dictated Objective - Vital Signs/Intake and Output Vital Signs (last 24 hours): Temp Pulse Resp BP Pulse Ox 98.8 F 81 16 131/78 98 08/20/18 20:00 08/20/18 20:00 08/20/18 20:00 08/20/18 20:00 08/20/18 20:00 Intake and Output: 08/20/18 08/21/18 18:59 06:59 Intake Total 1128 Balance 1128 - Medications Medications: Current Medications Aspirin (Aspirin Chewable) 81 mg PO DAILY [facility] Last Admin: 08/20/18 10:33 Dose: 81 mg Piperacillin Sod/Tazobactam (Sod 3.375 gm/ Sodium Chloride) 100 mls @ 200 mls/hr IVPB Q8H [facility]; Protocol Last Admin: 08/20/18 17:00 Dose: 200 mls/hr Heparin Sodium/Sodium Chloride (Heparin 40689 Units/250ml 1/2 Normal Saline) 25,000 units in 250 mls @ 7.646 mls/hr IV .Q24H PRN; Protocol PRN Reason: ADJUST RATE PER PROTOCOL Last Admin: 08/20/18 05:25 Dose: 12 units/kg/hr, 9.175 mls/hr Doxycycline Hyclate 100 mg/ (Sodium Chloride) 100 mls @ 100 mls/hr IVPB Q12H [facility]; Protocol Last Admin: 08/20/18 15:00 Dose: 100 mls/hr Insulin Human Regular (Novolin R) 0 unit SC ACHS [facility]; Protocol Last Admin: 08/20/18 16:57 Dose: Not Given Losartan Potassium (Cozaar) 25 mg PO DAILY [facility] Last Admin: 08/20/18 10:33 Dose: 25 mg Metoprolol Tartrate (Lopressor) 50 mg PO BID [facility] Last Admin: 08/20/18 17:07 Dose: 50 mg Pantoprazole Sodium (Protonix Inj) 40 mg IVP DAILY [facility] Last Admin: 08/20/18 10:33 Dose: 40 mg Rosuvastatin Calcium (Crestor) 20 mg PO HS [facility] Last Admin: 08/19/18 21:57 Dose: 20 mg - Labs Labs: 08/20/18 06:21 08/20/18 06:21 PT 13.5 SECONDS (9.7-12.2) H 08/18/18 04:36 INR 1.2 08/18/18 04:36 APTT 49 SECONDS (21-34) H 08/20/18 06:21
--- NOTE | 2018-08-20 22:22 | PN ---
DATE: 08/20/2018 LOCATION: Cardiac Electrophysiology at [facility]. CLINICAL CARDIAC ELECTROPHYSIOLOGY PROGRESS NOTE SUBJECTIVE: The patient was extubated two days ago. He is pleasantly confused, which appears to be his baseline perhaps slightly worsened than his baseline according to the family. Family is at the bedside. Denies any lightheadedness, dizziness or syncope. OBJECTIVE DATA: Telemetry demonstrates atrial fibrillation with a relatively reasonable antegrade conductive rate. He has had no ventricular arrhythmia in the last 24 to 48 hours on telemetry. PHYSICAL EXAMINATION: VITAL SIGNS: Blood pressure is 124/73, heart rate of 79, and respiratory rate of 14. GENERAL: The patient is alert, confused, and conversant. NECK: Supple. PULMONARY: Lungs are clear. GASTROINTESTINAL: Abdomen is soft. EXTREMITIES: No edema. CARDIOVASCULAR: Irregularly irregular. S1 and S2. Has 2/6 systolic murmur. SKIN: No rashes. NEUROLOGIC: Grossly intact. PSYCHIATRIC: Normal affect. ASSESSMENT: Mr. Arredondo is an 83-year-old male with permanent atrial fibrillation with an elevated CHADS-VASc score and recent cardiac arrest with cardiac catheterization on this admission demonstrating both proximal left anterior descending and posterior descending artery disease which is significant. PLAN: To have cardiac catheterization with PCI and stenting in a few days. I suggest LifeVest wearable defibrillator for three months and then reassessment of his EF to determine ICD candidacy. Optimal medical therapy per Cardiology and the ICU teams. The patient should continue on oral anticoagulation upon discharge as he does have a CHADS-VASc score of 4 to 5. Thank you very much for allowing me to participate in the care of this patient. Bernard Barber MD
--- NOTE | 2018-08-20 23:54 | PN ---
DATE: 08/20/2018 SUBJECTIVE: The patient was seen today. He seems to be improving, and he is doing better. His was at the bedside. He denied any chest pain. No shortness of breath. No abdominal pain. No nausea, no vomiting. PHYSICAL EXAMINATION: VITAL SIGNS: He remains afebrile. T-max is 97.3, pulse 90, blood pressure 147/77, and respirations are 19. HEENT: Head is atraumatic, normocephalic. Left eye ecchymosis is getting better. NECK: Supple. LUNGS: Occasional rhonchi, otherwise, mostly clear. HEART: S1, S2, regular. ABDOMEN: Soft, nontender. No guarding. No rigidity present. EXTREMITIES: Have no edema. He does have atrial fib, and they did a [id number] score which is more than 2. He is on aspirin and heparin; and he is going to go for a procedure on Thursday, I am told; hence, we will continue Zosyn for now; however, if the white count is increasing, we should look up on the lines, as he still had the left internal jugular. I would discontinue the doxycycline and the patient's x-ray still shows some infiltrate, but we will cover with Zosyn for any aspiration pneumonia, and we will follow, monitor the white blood cell count, and he is status post cardiac arrest, and he is on intravenous antibiotics since admission. Shilpa Sandoval MD
[2018-08-21] MEDS: Piperacillin/Tazobact 3.375 GM in Sodium Chloride 100 ML IVPB SCH ×3 (01:46→17:44)
[2018-08-21] MEDS: (Novolin R) Insulin Human Regular 100 units/ml vial SC SCH ×4 (08:45→22:04)
[2018-08-21] MEDS: Heparin25000 units/250ml 1/2NS 25,000 UNITS/250 ML BAG IV PRN (09:24)
--- NOTE | 2018-08-21 16:47 | CP.PCM.PN ---
Subjective - Date & Time of Evaluation Date of Evaluation: 08/21/18 Time of Evaluation: 16:46 Objective - Vital Signs/Intake and Output Vital Signs (last 24 hours): Temp Pulse Resp BP Pulse Ox 98.1 F 79 22 148/67 100 08/21/18 12:00 08/21/18 16:00 08/21/18 16:00 08/21/18 16:00 08/21/18 12:00 Intake and Output: 08/21/18 08/21/18 06:59 18:59 Intake Total 693.3 Balance 693.3 - Medications Medications: Current Medications Aspirin (Aspirin Chewable) 81 mg PO DAILY [facility] Last Admin: 08/21/18 09:21 Dose: 81 mg Piperacillin Sod/Tazobactam (Sod 3.375 gm/ Sodium Chloride) 100 mls @ 200 mls/hr IVPB Q8H [facility]; Protocol Last Admin: 08/21/18 09:35 Dose: 200 mls/hr Heparin Sodium/Sodium Chloride (Heparin 93753 Units/250ml 1/2 Normal Saline) 25,000 units in 250 mls @ 7.646 mls/hr IV .Q24H PRN; Protocol PRN Reason: ADJUST RATE PER PROTOCOL Last Admin: 08/21/18 09:24 Dose: 14 units/kg/hr, 10.704 mls/hr Insulin Human Regular (Novolin R) 0 unit SC ACHS [facility]; Protocol Last Admin: 08/21/18 11:27 Dose: Not Given Losartan Potassium (Cozaar) 25 mg PO DAILY [facility] Last Admin: 08/21/18 09:21 Dose: 25 mg Metoprolol Tartrate (Lopressor) 50 mg PO BID [facility] Last Admin: 08/21/18 09:21 Dose: 50 mg Pantoprazole Sodium (Protonix Inj) 40 mg IVP DAILY [facility] Last Admin: 08/21/18 09:21 Dose: 40 mg Rosuvastatin Calcium (Crestor) 20 mg PO HS [facility] Last Admin: 08/20/18 22:20 Dose: 20 mg - Labs Labs: 08/20/18 06:21 08/20/18 06:21 PT 13.5 SECONDS (9.7-12.2) H 08/18/18 04:36 INR 1.2 08/18/18 04:36 APTT 52 SECONDS (21-34) H D 08/21/18 15:05 Assessment and Plan (1) Cardiac arrest Status: Acute (2) Respiratory arrest Status: Acute
--- NOTE | 2018-08-21 20:05 | CP.PCM.PN ---
Subjective - Date & Time of Evaluation Date of Evaluation: 08/21/18 Time of Evaluation: 17:00 - Subjective Subjective: dictated Objective - Vital Signs/Intake and Output Vital Signs (last 24 hours): Temp Pulse Resp BP Pulse Ox 97.1 F L 75 18 125/70 99 08/21/18 16:00 08/21/18 19:00 08/21/18 19:00 08/21/18 19:00 08/21/18 16:00 Intake and Output: 08/21/18 08/22/18 18:59 06:59 Intake Total 937.4 Balance 937.4 - Medications Medications: Current Medications Aspirin (Aspirin Chewable) 81 mg PO DAILY [facility] Last Admin: 08/21/18 09:21 Dose: 81 mg Piperacillin Sod/Tazobactam (Sod 3.375 gm/ Sodium Chloride) 100 mls @ 200 mls/hr IVPB Q8H [facility]; Protocol Last Admin: 08/21/18 17:44 Dose: 200 mls/hr Heparin Sodium/Sodium Chloride (Heparin 71641 Units/250ml 1/2 Normal Saline) 25,000 units in 250 mls @ 7.646 mls/hr IV .Q24H PRN; Protocol PRN Reason: ADJUST RATE PER PROTOCOL Last Admin: 08/21/18 09:24 Dose: 14 units/kg/hr, 10.704 mls/hr Insulin Human Regular (Novolin R) 0 unit SC ACHS [facility]; Protocol Last Admin: 08/21/18 17:45 Dose: 1 u Losartan Potassium (Cozaar) 25 mg PO DAILY [facility] Last Admin: 08/21/18 09:21 Dose: 25 mg Metoprolol Tartrate (Lopressor) 50 mg PO BID [facility] Last Admin: 08/21/18 17:45 Dose: 50 mg Pantoprazole Sodium (Protonix Inj) 40 mg IVP DAILY [facility] Last Admin: 08/21/18 09:21 Dose: 40 mg Rosuvastatin Calcium (Crestor) 20 mg PO HS [facility] Last Admin: 08/20/18 22:20 Dose: 20 mg - Labs Labs: 08/20/18 06:21 08/20/18 06:21 PT 13.5 SECONDS (9.7-12.2) H 08/18/18 04:36 INR 1.2 08/18/18 04:36 APTT 52 SECONDS (21-34) H D 08/21/18 15:05
--- NOTE | 2018-08-21 22:13 | CP.PCM.PN ---
Subjective - Date & Time of Evaluation Date of Evaluation: 08/21/18 Time of Evaluation: 16:30 - Subjective Subjective: Patient seen and examined at bedside. Denies chest pain and dyspnea D/W patient's daughters who agreed for the transfer of the patient Patient [place] [facility] [place] Physical Examination - Constitutional Appears: Non-toxic, No Acute Distress - Head Exam Head Exam: ATRAUMATIC, NORMOCEPHALIC - ENT Exam ENT Exam: Mucous Membranes Moist - Respiratory Exam Respiratory Exam: Clear to Ausculation Bilateral. absent: Rales, Rhonchi, Wheezes - Cardiovascular Exam Cardiovascular Exam: REGULAR RHYTHM, +S1, +S2 - GI/Abdominal Exam GI & Abdominal Exam: Soft. absent: Guarding, Rigid, Tenderness - Psychiatric Exam Psychiatric exam: Normal Affect, Normal Mood - Skin Skin Exam: Dry, Intact, Normal Color, Warm Assessment and Plan - Assessment and Plan (Free Text) Assessment: 83 year old male with past medical history of CAD, A fib, HTN, HLD, dementia is s/p cardiac arrest. Cardiac arrest s/p ROSC - Pt extubated and downgraded to tele CAD - Cardiac cath done on 08/17/18 showed LAD and PDA occlusion - Plan for artherectomy with impella [place] [facility] [place]. Patient will need life vest for 3 months after procedure and eventually ICD. - Will continue heparin and aspirin - Continue BB with Lopressor 50 mg po BID and statin therapy with Crestor 20 mg po HS A fib - CHADSVASc score >2. - Currently on aspirin and heparin drip - Continue rate control with Loprossor DM - Per primary management Objective - Vital Signs/Intake and Output Vital Signs (last 24 hours): Temp Pulse Resp BP Pulse Ox 98.4 F 82 17 125/86 97 08/21/18 20:00 08/21/18 20:01 08/21/18 20:01 08/21/18 20:01 08/21/18 20:00 Intake and Output: 08/21/18 08/22/18 18:59 06:59 Intake Total 937.4 10.7 Balance 937.4 10.7 - Medications Medications: Current Medications Aspirin (Aspirin Chewable) 81 mg PO DAILY [facility] Last Admin: 08/21/18 09:21 Dose: 81 mg Heparin Sodium/Sodium Chloride (Heparin 01553 Units/250ml 1/2 Normal Saline) 25,000 units in 250 mls @ 7.646 mls/hr IV .Q24H PRN; Protocol PRN Reason: ADJUST RATE PER PROTOCOL Last Admin: 08/21/18 09:24 Dose: 14 units/kg/hr, 10.704 mls/hr Insulin Human Regular (Novolin R) 0 unit SC ACHS [facility]; Protocol Last Admin: 08/21/18 22:04 Dose: Not Given Losartan Potassium (Cozaar) 25 mg PO DAILY [facility] Last Admin: 08/21/18 09:21 Dose: 25 mg Metoprolol Tartrate (Lopressor) 50 mg PO BID [facility] Last Admin: 08/21/18 17:45 Dose: 50 mg Pantoprazole Sodium (Protonix Inj) 40 mg IVP DAILY [facility] Last Admin: 08/21/18 09:21 Dose: 40 mg Rosuvastatin Calcium (Crestor) 20 mg PO HS [facility] Last Admin: 08/21/18 22:07 Dose: 20 mg - Labs Labs: 08/20/18 06:21 08/20/18 06:21 PT 13.5 SECONDS (9.7-12.2) H 08/18/18 04:36 INR 1.2 08/18/18 04:36 APTT 54 SECONDS (21-34) H 08/21/18 20:18
--- NOTE | 2018-08-22 01:31 | PN ---
DATE: 08/21/2018 SUBJECTIVE: Porfirio Arredondo was seen today. The nurse told me that he is having some diarrhea now. I would refrain from all antibiotics if that is the case. He looks clinically well. He is waiting for his cardiac workup to be completed as he needs to have surgical procedure done. So at this time, I came to examine him. He is talkative but he talks sometimes irrelevant according to the nurse who is able to understand Algerian. PHYSICAL EXAMINATION: VITAL SIGNS: T-max is 97.1, heart rate of 85, blood pressure 178/91, respirations are 20. HEENT: Head is atraumatic and normocephalic. Left eye is getting better. NECK: Supple. HEART: S1 and S2 are regular. LUNGS: Clear. ABDOMEN: Soft, nontender. No guarding, no rigidity present. EXTREMITIES: Have no edema. ASSESSMENT AND PLAN: At this time, I would hold back on Zosyn. He received almost 9-10 days of antibiotics. We will follow clinically. He had a cardiac arrest and coronary artery disease. He does have atrial fibrillation and diabetes mellitus. He also has some component of dementia as he talks irrelevant at times. We will discontinue Zosyn at this time. If he continues to have diarrhea, we will need to check for Clostridium difficile. We will follow. Shilpa Sandoval MD
--- NOTE | 2018-08-22 01:42 | CARDCATH ---
PROCEDURE DATE: 08/17/2018 PROCEDURES: 1. Left heart catheterization. 2. Coronary angiogram. REFERRING PHYSICIANS: 1. Gemma Clay MD 2. Sanjeev Kirk MD PERFORMING PHYSICIAN: Antelmo Camp MD CLINICAL INDICATIONS: 1. Status post ventricular tachycardia and cardiac arrest. 2. Non-ST elevation myocardial infarction. 3. Dyspnea and respiratory failure, status post mechanical ventilation. 4. Hypertension. 5. Hyperlipidemia. 6. Coronary artery disease. 7. Dementia. DESCRIPTION OF PROCEDURE: After informed consent, the patient was prepped and draped in the usual sterile fashion. Lidocaine 2% was given in the right groin for local anesthesia. Using micropuncture technique, a 6-Uruguayan sheath was introduced into the right common femoral artery. A JR4, 6-[place] diagnostic catheter crossed into left ventricle across the aortic valve. LV end-diastolic pressure measured. Contrast injected and LV angiogram was done. Then, the catheter was pulled back across the aortic valve. Gradient across the aortic valve was measured. Then, the same catheter engaged into right coronary artery. Contrast injected and right coronary angiogram was done. The catheter was exchanged to 6-[place] JL4 diagnostic catheter. The catheter was engaged into left main coronary artery. Contrast injected and left coronary angiogram was done. The patient tolerated the procedure well. Post-procedure, Mynx closure device deployed with excellent hemostasis. Radiological supervision and radiological interpretation of the coronary imaging was done. FINDINGS: 1. Left main coronary artery is patent. 2. Ostial LAD has 95% calcific stenosis. Mid and distal LAD and diagonal branches are patent. 3. Left circumflex is non-dominant. Left circumflex coronary artery is patent. OM2 artery has 90% proximal stenosis. 4. Right coronary artery is dominant. Proximal and mid right coronary arteries patent. PDA has 95% to 99% multiple lesions. 5. Dilated ischemic cardiomyopathy with ejection fraction of 20%. There is severe global hypokinesis. EDP is 28. No gradient across the aortic valve. IMPRESSION: 1. Severe triple vessel disease. Critical left anterior descending and right coronary artery disease. 2. Dilated ischemic cardiomyopathy with ejection fraction of 20%. Elevated end-diastolic pressure. Recommend coronary artery revascularization. Antelmo Camp MD
[2018-08-22 06:43] LABS: BASO # 0.1 K/uL (0.0-0.2); BASO % 0.9 % (0.0-2.0); EOS # 0.2 K/uL (0.0-0.7); EOS % 1.7 % (0.0-4.0); LYMPH # 2.7 K/uL (1.0-4.3); LYMPH % 25.1 % (20.0-40.0); MEAN CELL VOLUME 93.5 fL (80.0-94.0); MEAN CORPUSCULAR HEMOGLOBIN 31.2 pg (27.0-31.0); MEAN CORPUSCULAR HGB CONC 33.3 g/dL (33.0-37.0); MEAN PLATELET VOLUME 8.7 fL (7.2-11.7); MONO # 0.8 K/uL (0.0-0.8); MONO % 7.1 % (0.0-10.0); NEUT # 7.1 K/uL (1.8-7.0); NEUT % 65.2 % (50.0-75.0); NRBC % 0.1 % (0.0-2.0); RBC 3.21 Mil/uL (4.40-5.90); RED CELL DISTRIBUTION WIDTH 14.4 % (11.5-14.5); WHITE BLOOD COUNT 10.8 K/uL (4.8-10.8)
[2018-08-22 07:02] LABS: ALBUMIN 3.5 g/dL (3.5-5.0); ALT/SGPT 22 U/L (21-72); AST/SGOT 41 U/L (17-59); BLOOD UREA NITROGEN 26 mg/dL (9-20); CALCIUM 8.6 mg/dl (8.6-10.4); GFR NON-AFRICAN AMERICAN > 60
[2018-08-22 07:08] LABS: INR 1.3; PROTHROMBIN TIME 13.8 SECONDS (9.7-12.2)
[2018-08-22] MEDS: (Novolin R) Insulin Human Regular 100 units/ml vial SC SCH ×3 (08:55→16:28)
[2018-08-22] MEDS ORDERED: Heparin25000 units/250ml 1/2NS 25,000 UNITS/250 ML BAG IV PRN (14:45)
--- NOTE | 2018-08-22 15:39 | CP.PCM.PN ---
Subjective - Date & Time of Evaluation Date of Evaluation: 08/22/18 Time of Evaluation: 15:39 Objective - Vital Signs/Intake and Output Vital Signs (last 24 hours): Temp Pulse Resp BP Pulse Ox 98.6 F 90 21 142/84 98 08/22/18 12:00 08/22/18 12:00 08/22/18 12:00 08/22/18 11:57 08/22/18 12:00 Intake and Output: 08/22/18 08/22/18 06:59 18:59 Intake Total 378.4 85.6 Balance 378.4 85.6 - Medications Medications: Current Medications Aspirin (Aspirin Chewable) 81 mg PO DAILY [facility] Last Admin: 08/22/18 09:46 Dose: 81 mg Heparin Sodium/Sodium Chloride (Heparin 04571 Units/250ml 1/2 Normal Saline) 25,000 units in 250 mls @ 9.462 mls/hr IV .Q24H PRN; Protocol PRN Reason: PROTOCOL Last Admin: 08/22/18 15:06 Dose: 15.83 units/kg/hr, 10.7 mls/hr Insulin Human Regular (Novolin R) 0 unit SC ACHS [facility]; Protocol Last Admin: 08/22/18 13:06 Dose: 1 u Losartan Potassium (Cozaar) 25 mg PO DAILY [facility] Last Admin: 08/22/18 09:46 Dose: 25 mg Metoprolol Tartrate (Lopressor) 50 mg PO BID [facility] Last Admin: 08/22/18 09:46 Dose: 50 mg Pantoprazole Sodium (Protonix Inj) 40 mg IVP DAILY [facility] Last Admin: 08/22/18 09:46 Dose: 40 mg Rosuvastatin Calcium (Crestor) 20 mg PO HS [facility] Last Admin: 08/21/18 22:07 Dose: 20 mg - Labs Labs: 08/22/18 06:37 08/22/18 06:37 PT 13.8 SECONDS (9.7-12.2) H 08/22/18 06:52 INR 1.3 08/22/18 06:52 APTT 56 SECONDS (21-34) H 08/22/18 06:52 Assessment and Plan (1) Cardiac arrest Status: Acute (2) Respiratory arrest Status: Acute
[2018-08-22 16:05] VITALS: RESP 22
--- NOTE | 2018-08-22 17:56 | CP.PCM.PN ---
Subjective - Date & Time of Evaluation Date of Evaluation: 08/22/18 Time of Evaluation: 14:30 - Subjective Subjective: dictated Objective - Vital Signs/Intake and Output Vital Signs (last 24 hours): Temp Pulse Resp BP Pulse Ox 98.5 F 79 22 137/69 97 08/22/18 16:00 08/22/18 16:00 08/22/18 16:00 08/22/18 15:57 08/22/18 16:00 Intake and Output: 08/22/18 08/22/18 06:59 18:59 Intake Total 378.4 107.0 Balance 378.4 107.0 - Medications Medications: Current Medications Aspirin (Aspirin Chewable) 81 mg PO DAILY [facility] Last Admin: 08/22/18 09:46 Dose: 81 mg Heparin Sodium/Sodium Chloride (Heparin 62888 Units/250ml 1/2 Normal Saline) 25,000 units in 250 mls @ 9.462 mls/hr IV .Q24H PRN; Protocol PRN Reason: PROTOCOL Last Admin: 08/22/18 15:06 Dose: 15.83 units/kg/hr, 10.7 mls/hr Insulin Human Regular (Novolin R) 0 unit SC ACHS [facility]; Protocol Last Admin: 08/22/18 16:28 Dose: 1 u Losartan Potassium (Cozaar) 25 mg PO DAILY [facility] Last Admin: 08/22/18 09:46 Dose: 25 mg Metoprolol Tartrate (Lopressor) 50 mg PO BID [facility] Last Admin: 08/22/18 09:46 Dose: 50 mg Pantoprazole Sodium (Protonix Inj) 40 mg IVP DAILY [facility] Last Admin: 08/22/18 09:46 Dose: 40 mg Rosuvastatin Calcium (Crestor) 20 mg PO HS [facility] Last Admin: 08/21/18 22:07 Dose: 20 mg - Labs Labs: 08/22/18 06:37 08/22/18 06:37 PT 13.8 SECONDS (9.7-12.2) H 08/22/18 06:52 INR 1.3 08/22/18 06:52 APTT 56 SECONDS (21-34) H 08/22/18 06:52
[2018-08-22 20:06] VITALS: BP 163/93; PULSE 88; O2SAT 100
[2018-08-22 20:09] VITALS: TEMP 99
--- NOTE | 2018-08-22 21:51 | PN ---
DATE: 08/22/2018 SUBJECTIVE: This patient was seen today. He sometime talks weird and confusing. Even his was there and she could not make out, but otherwise, he is not having any respiratory issues. He is not even coughing. He appears stable. PHYSICAL EXAMINATION: VITAL SIGNS: T-max is 98.5, pulse 79, respirations remain 20 to 22, saturation 97% on nasal cannula. GENERAL: He is awake and alert. HEAD: Atraumatic. NECK: Supple. LUNGS: Clear. No wheezing, no rhonchi. HEART: S1 and S2 is regular. ABDOMEN: Soft, nontender. No guarding, no rigidity present. EXTREMITIES: Have no edema. LABORATORY DATA: His white count is 10.8, hemoglobin 10, hematocrit 30, platelet count is 49, so platelet count is low. It was 244 yesterday, but he was on antibiotics and he has been on blood thinners, he is still on heparin. Maybe, his platelets are dropping because of heparin. Otherwise, he appears stable to me. His chemistry shows sodium 140, potassium 4.4, chloride 113, BUN is 20, creatinine is 1. 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 His last chest x-ray showed [id number] venous congestion, confluent consolidative changes in right hilar and bilateral lung bases, degenerative changes in spine and shoulder. This was from 08/19/2018, but he seems to be clinically coming along and actually may be lagging behind the clinical picture. Shilpa Sandoval MD
--- NOTE | 2018-08-27 00:12 | CP.PCM.DIS ---
Provider - Provider Date of Admission: 08/11/18 15:33 Attending physician: Gemma Clay MD Consults: 08/11/18 15:35 Cardiology Consult Routine Comment: Consulting Provider: Keagan Dupont Consulting Physician: Keagan Dupont Reason for Consult: cardiac arrest 08/11/18 20:07 Physician Consult Routine Comment: Consulting Provider: Meghan Alas Consulting Physician: Meghan Alas Reason for Consult: sob 08/11/18 20:08 Physician Consult Routine Comment: Consulting Provider: Shilpa Sandoval Consulting Physician: Shilpa Sandoval Reason for Consult: septic shock 08/11/18 21:08 Case Management Referral Routine Comment: Physician Instructions: Reason For Exam: 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 Consulting Provider: Antelmo Camp Consulting Physician: Antelmo Camp Reason for Consult: cardiac arrest, afib Time Spent in preparation of Discharge (in minutes): 25 Diagnosis - Discharge Diagnosis (1) Cardiac arrest Status: Acute (2) Respiratory arrest Status: Acute Hospital Course - Lab Results Lab Results: Micro Results 08/22/18 21:51 Nose MRSA Culture - Final MRSA NOT DETECTED 08/12/18 10:00 Blood-Venous Blood Culture - Final NO GROWTH AFTER 5 DAYS 08/12/18 10:30 Blood-Venous Blood Culture - Final NO GROWTH AFTER 5 DAYS 08/12/18 10:30 Blood-Venous Gram Stain - Final TEST NOT PERFORMED 08/12/18 18:48 Trachasp Gram Stain - Final 08/12/18 18:48 Trachasp Sputum Culture - Final NORMAL ORAL BECCA 08/12/18 09:24 Naris MRSA Culture (Admit) - Final MRSA NOT DETECTED 08/11/18 19:26 Urine,Catheterized Urine Culture - Final No Growth (<1,000 CFU/ML) Most Recent Lab Values WBC 10.8 K/uL (4.8-10.8) 08/22/18 06:37 RBC 3.21 Mil/uL (4.40-5.90) L 08/22/18 06:37 Hgb 10.0 g/dL (12.0-18.0) L 08/22/18 06:37 Hct 30.0 % (35.0-51.0) L 08/22/18 06:37 MCV 93.5 fL (80.0-94.0) 08/22/18 06:37 MCH 31.2 pg (27.0-31.0) H 08/22/18 06:37 MCHC 33.3 g/dL (33.0-37.0) 08/22/18 06:37 RDW 14.4 % (11.5-14.5) 08/22/18 06:37 Plt Count 49 K/uL (130-400) L D 08/22/18 06:37 MPV 8.7 fL (7.2-11.7) 08/22/18 06:37 Neut % (Auto) 65.2 % (50.0-75.0) 08/22/18 06:37 Lymph % (Auto) 25.1 % (20.0-40.0) 08/22/18 06:37 Posey % (Auto) 7.1 % (0.0-10.0) 08/22/18 06:37 Eos % (Auto) 1.7 % (0.0-4.0) 08/22/18 06:37 Baso % (Auto) 0.9 % (0.0-2.0) 08/22/18 06:37 Neut # (Auto) 7.1 K/uL (1.8-7.0) H 08/22/18 06:37 Lymph # (Auto) 2.7 K/uL (1.0-4.3) 08/22/18 06:37 Posey # (Auto) 0.8 K/uL (0.0-0.8) 08/22/18 06:37 Eos # (Auto) 0.2 K/uL (0.0-0.7) 08/22/18 06:37 Baso # (Auto) 0.1 K/uL (0.0-0.2) 08/22/18 06:37 Neutrophils % (Manual) 87 % (50-75) H 08/13/18 13:35 Band Neutrophils % 2 % (0-2) 08/13/18 13:35 Lymphocytes % (Manual) 5 % (20-40) L 08/13/18 13:35 Monocytes % (Manual) 6 % (0-10) 08/13/18 13:35 Platelet Estimate Normal (NORMAL) 08/13/18 13:35 RBC Morphology Normal 08/13/18 06:06 Hypochromasia (manual) Slight 08/13/18 13:35 Poikilocytosis (manual Slight 08/13/18 13:35 Anisocytosis (manual) Slight 08/13/18 13:35 PT 13.8 SECONDS (9.7-12.2) H 08/22/18 06:52 INR 1.3 08/22/18 06:52 APTT 56 SECONDS (21-34) H 08/22/18 06:52 Puncture Site R brac 08/18/18 05:18 pCO2 36 mm/Hg (35-45) 08/18/18 05:18 pO2 143 mm/Hg (80-100) H 08/18/18 05:18 HCO3 28.2 mmol/L (21-28) H 08/18/18 05:18 ABG pH 7.49 (7.35-7.45) H 08/18/18 05:18 ABG Total CO2 28.5 mmol/L (22-28) H 08/18/18 05:18 ABG O2 Saturation 99.9 % (95-98) H 08/18/18 05:18 ABG Base Excess 4.1 mmol/L (-2.0-3.0) H 08/18/18 05:18 ABG Hemoglobin 8.7 g/dL (11.7-17.4) L 08/16/18 05:14 ABG Carboxyhemoglobin 2.1 % (0.5-1.5) H 08/16/18 05:14 POC ABG HHb (Measured) 0.3 % (0.0-5.0) 08/16/18 05:14 ABG Methemoglobin 1.5 % (0.0-3.0) 08/16/18 05:14 Danny Test Na 08/18/18 05:18 ABG Potassium 3.2 mmol/L (3.6-5.2) L 08/18/18 05:18 A-a O2 Difference 133.0 mm/Hg 08/18/18 05:18 Respiratory Index 0.9 08/18/18 05:18 Hgb O2 Saturation 96.0 % (95.0-98.0) 08/16/18 05:14 Sodium 150.0 mmol/l (132-148) H 08/18/18 05:18 Chloride 118.0 mmol/L (98-107) H 08/18/18 05:18 Glucose 118 mg/dl (75-110) H 08/18/18 05:18 Lactate 1.2 mmol/L (0.7-2.1) 08/18/18 05:18 Vent Mode Prvc 08/18/18 05:18 Mechanical Rate 18 08/18/18 05:18 FiO2 45.0 % 08/18/18 05:18 Tidal Volume 450 08/18/18 05:18 PEEP 5 08/18/18 05:18 Crit Value Called To Arcenio allen/rn 08/13/18 04:20 Crit Value Called By Jacob [email or web address]/rt 08/13/18 04:20 Crit Value Read Back Y 08/13/18 04:20 Blood Gas Notified Time 430 08/13/18 04:20 Sodium 140 mmol/L (132-148) 08/22/18 06:37 Potassium 4.4 mmol/L (3.6-5.2) 08/22/18 06:37 Chloride 113 mmol/L (98-107) H 08/22/18 06:37 Carbon Dioxide 20 mmol/L (22-30) L 08/22/18 06:37 Anion Gap 12 (10-20) 08/22/18 06:37 BUN 26 mg/dL (9-20) H 08/22/18 06:37 Creatinine 1.0 mg/dL (0.8-1.5) 08/22/18 06:37 Est GFR ( Amer) > 60 08/22/18 06:37 Est GFR (Non-Af Amer) > 60 08/22/18 06:37 POC Glucose (mg/dL) 151 mg/dL (65-110) H 08/22/18 16:20 Random Glucose 104 mg/dL (75-110) 08/22/18 06:37 Lactic Acid 3.7 mmol/L (0.7-2.1) H 08/11/18 22:50 Calcium 8.6 mg/dl (8.6-10.4) 08/22/18 06:37 Phosphorus 3.1 mg/dL (2.5-4.5) 08/22/18 06:37 Magnesium 2.1 mg/dL (1.6-2.3) 08/22/18 06:37 Total Bilirubin 0.8 mg/dL (0.2-1.3) 08/22/18 06:37 AST 41 U/L (17-59) 08/22/18 06:37 ALT 22 U/L (21-72) 08/22/18 06:37 Alkaline Phosphatase 96 U/L (38-126) 08/22/18 06:37 Total Creatine Kinase 1050 U/L (55-170) H 08/12/18 06:29 CK-MB (Mass) 25.1 ng/mL (0.0-3.38) H 08/12/18 06:29 Troponin I 2.2100 ng/mL (0.00-0.120) H* 08/12/18 09:24 Total Protein 7.0 g/dL (6.3-8.3) 08/22/18 06:37 Albumin 3.5 g/dL (3.5-5.0) 08/22/18 06:37 Globulin 3.5 gm/dL (2.2-3.9) 08/22/18 06:37 Albumin/Globulin Ratio 1.0 (1.0-2.1) 08/22/18 06:37 Triglycerides 288 mg/dL (0-149) H 08/11/18 14:36 Cholesterol 167 mg/dL (0-199) 08/11/18 14:36 LDL Cholesterol Direct 87 mg/dL (0-129) 08/11/18 14:36 HDL Cholesterol 37 mg/dL (30-70) 08/11/18 14:36 Arterial Blood Potassium 3.2 mmol/L (3.6-5.2) L 08/18/18 05:18 Urine Color Yellow (YELLOW) 08/11/18 19:26 Urine Clarity Hazy (Clear) 08/11/18 19:26 Urine pH 5.0 (5.0-8.0) 08/11/18 19:26 Ur Specific [place] 1.019 (1.003-1.030) 08/11/18 19:26 Urine Protein 3+ mg/dL (NEGATIVE) H 08/11/18 19:26 Urine Glucose (UA) Normal mg/dL (Normal) 08/11/18 19:26 Urine Ketones Negative mg/dL (NEGATIVE) 08/11/18 19:26 Urine Blood 2+ (NEGATIVE) H 08/11/18 19:26 Urine Nitrate Negative (NEGATIVE) 08/11/18 19:26 Urine Bilirubin Negative (NEGATIVE) 08/11/18 19:26 Urine Urobilinogen Normal mg/dL (0.2-1.0) 08/11/18 19:26 Ur Leukocyte Esterase Neg Florencio/uL (Negative) 08/11/18 19:26 Urine WBC (Auto) 8 /hpf (0-5) H 08/11/18 19:26 Urine RBC (Auto) 6 /hpf (0-3) H 08/11/18 19:26 Ur Squamous Epith Cells 1 /hpf (0-5) 08/11/18 19:26 Amorphous Sediment Moderate /ul (<OCC) H 08/11/18 19:26 Urine Bacteria Rare (<OCC) 08/11/18 19:26 Hyaline Casts 6-10 /lpf (0-2) H 08/11/18 19:26 Stool Occult Blood Negative (NEGATIVE) 08/16/18 18:08 Random Vancomycin 10.1 ug/mL 08/13/18 06:06 Blood Type O POSITIVE 08/11/18 14:36 Antibody Screen Negative 08/11/18 14:36 - Hospital Course Hospital Course: 83-year-old gentleman presented to hospital status post cardiac arrest. Patient recovered and was successfully extubated. During the hospitalization patient underwent cardiac catheterization. It was determined by cardiology team that patient needs intervention and possible LVAD placement. Patient is transferred to [facility] for further care Discharge Exam - Head Exam Head Exam: ATRAUMATIC, NORMOCEPHALIC - Eye Exam Eye Exam: Normal appearance - ENT Exam ENT Exam: Mucous Membranes Moist - Respiratory Exam Respiratory Exam: Clear to PA & Lateral - Cardiovascular Exam Cardiovascular Exam: REGULAR RHYTHM, +S1, +S2 - GI/Abdominal Exam GI & Abdominal Exam: Normal Bowel Sounds Discharge Plan - Follow Up Plan Condition: CRITICAL Disposition: Trans to Other Acute Care Hosp
== END 2018-08-22 20:20 | disposition short-term general hospital (02) | DRG 280 ==
LOC: C.ER 14:09 → C.9I 15:33
PROVIDERS: ADMIT Internal Medicine Nephrology; ATTEND Internal Medicine Nephrology
PROC: 0BH17EZ Insertion of Endotracheal Airway into Trachea, Via Natural or Artificial Opening (ICD-10-PCS; principal; 2018-08-11)
PROC: 5A1955Z Respiratory Ventilation, Greater than 96 Consecutive Hours (ICD-10-PCS; 2018-08-11)
PROC: 5A2204Z Restoration of Cardiac Rhythm, Single (ICD-10-PCS; 2018-08-11)
PROC: 02HV33Z Insertion of Infusion Device into Superior Vena Cava, Percutaneous Approach (ICD-10-PCS; 2018-08-11)
PROC: 6A4Z1ZZ Hypothermia, Multiple (ICD-10-PCS; 2018-08-11)
PROC: 3E033XZ Introduction of Vasopressor into Peripheral Vein, Percutaneous Approach (ICD-10-PCS; 2018-08-11)
PROC: 4A023N7 Measurement of Cardiac Sampling and Pressure, Left Heart, Percutaneous Approach (ICD-10-PCS; 2018-08-17)
PROC: B2111ZZ Fluoroscopy of Multiple Coronary Arteries using Low Osmolar Contrast (ICD-10-PCS; 2018-08-17)
PROC: B2151ZZ Fluoroscopy of Left Heart using Low Osmolar Contrast (ICD-10-PCS; 2018-08-17)
DX: I21.4 Non-ST elevation (NSTEMI) myocardial infarction (principal); J18.9 Pneumonia, unspecified organism; J96.01 Acute respiratory failure with hypoxia; I50.23 Acute on chronic systolic (congestive) heart failure; J96.90 Respiratory failure, unspecified, unspecified whether with hypoxia or hypercapnia; E87.2 Acidosis; I13.0 Hypertensive heart and chronic kidney disease with heart failure and stage 1 through stage 4 chronic kidney disease, or unspecified chronic kidney disease; E87.0 Hyperosmolality and hypernatremia; I42.0 Dilated cardiomyopathy; N17.9 Acute kidney failure, unspecified; I47.2 Ventricular tachycardia; E11.22 Type 2 diabetes mellitus with diabetic chronic kidney disease; E78.00 Pure hypercholesterolemia, unspecified; E03.9 Hypothyroidism, unspecified; G30.9 Alzheimer's disease, unspecified; F02.80 Dementia in other diseases classified elsewhere, unspecified severity, without behavioral disturbance, psychotic disturbance, mood disturbance, and anxiety; I25.10 Atherosclerotic heart disease of native coronary artery without angina pectoris; I48.91 Unspecified atrial fibrillation; I50.9 Heart failure, unspecified; I77.819 Aortic ectasia, unspecified site; Z87.891 Personal history of nicotine dependence; N18.9 Chronic kidney disease, unspecified; Z79.4 Long term (current) use of insulin

== ENCOUNTER 2018-09-25 15:16 | Inpatient (IN) | payer MEDICARE, OTHER ==
[2018-09-25 15:17] VITALS: PULSE 97; BMI 34.2
--- NOTE | 2018-09-25 16:59 | C.PDOC ---
History Of Present Illness 83 year old male presents to the ED for evaluation of new onset lower GI bleed that started today. The patient reports he was discharged yesterday from [facility]. S/P LVAD, cardiac arrest, admitted in late August, and currently on Plavix. Today the fpc noticed blood on the toilet paper after whipping his buttock. The patient complained of lower abdominal pain yesterday, which has now resolved. Patient is currently asymptomatic. Denies fever, chills, and any other associated symptoms. Time Seen by Provider: 09/25/18 16:25 Chief Complaint (Nursing): GI Problem History Per: Patient History/Exam Limitations: no limitations Current Symptoms Are (Timing): Still Present Number Of Bleeding Episodes: One Associated Symptoms: denies: Nausea, Vomiting, Diarrhea Recent travel outside of the [place]: No Past Medical History Reviewed: Historical Data, Nursing Documentation, Vital Signs Vital Signs: Last Vital Signs Temp 97.8 F 09/25/18 15:26 Pulse 105 H 09/25/18 15:26 Resp 19 09/25/18 15:26 BP 132/74 09/25/18 15:26 Pulse Ox 100 09/25/18 15:26 - Medical History PMH: Alzheimer's Disease, Atrial Fibrillation, CAD, CHF, Dementia, Diabetes, HTN, Hypercholesterolemia, Hypothyroidism Denies: Chronic Kidney Disease Comment Only: Cardia Arrhythmia (A FIB) Surgical History: Carotid Endarterectomy (RIGHT) - [facility] Procedures CORONAR ARTERIOGR-2 CATH (09/19/13) FLUOROSCOPY OF LEFT HEART USING LOW OSMOLAR CONTRAST (08/11/18) FLUOROSCOPY OF MULT COR ART USING L OSM CONTRAST (08/11/18) HEAD & NECK ENDARTER NEC (09/19/13) HYPOTHERMIA, MULTIPLE (08/11/18) INSERTION OF ENDOTRACHEAL AIRWAY INTO TRACHEA, VIA OPENING (08/11/18) INSERTION OF INFUSION DEV INTO SUP VENA CAVA, PERC APPROACH (08/11/18) INTRODUCTION OF VASOPRESSOR INTO PERIPH VEIN, PERC APPROACH (08/11/18) LEFT HEART CARDIAC CATH (09/19/13) LT HEART ANGIOCARDIOGRAM (09/19/13) MEASURE OF CARDIAC SAMPL & PRESSURE, L HEART, PERC APPROACH (08/11/18) PROCEDURE ON SINGLE VESSEL (09/19/13) RESPIRATORY VENTILATION, GREATER THAN 96 CONSECUTIVE HOURS (08/11/18) JEW OF CARDIAC RHYTHM, SINGLE (08/11/18) Family History: States: Unknown Family Hx - Social History Hx Tobacco Use: No Hx Alcohol Use: Yes Hx Substance Use: No - Immunization History Hx Tetanus Toxoid Vaccination: No Hx Influenza Vaccination: Yes (10/2017) Hx Pneumococcal Vaccination: Yes (10/2017) Review Of Systems Except As Marked, All Systems Reviewed And Found Negative. Constitutional: Negative for: Fever, Chills Gastrointestinal: Positive for: Other (lower GI bleed. ) Physical Exam - Physical Exam Appears: Non-toxic, No Acute Distress Skin: Warm, Dry Head: Atraumatic, Normacephalic Eye(s): bilateral: Normal Inspection, Other ((-) no pallor.) Oral Mucosa: Moist Neck: Normal ROM Chest: Symmetrical, No Deformity Cardiovascular: Rhythm Regular, No Murmur Respiratory: Normal Breath Sounds, No Rales, No Rhonchi, No Wheezing, No Other (NARD) Gastrointestinal/Abdominal: Normal Exam, Soft, No Tenderness Rectal: No Hemorrhoids Extremity: Bilateral: Atraumatic, Normal Color And Temperature Neurological/Psych: Oriented x3, Normal Speech ED Course And Treatment - Laboratory Results Result Diagrams: 09/25/18 17:19 09/25/18 17:19 ECG: Interpreted By Me ECG Rhythm: Atrial Fibrillation ECG Interpretation: No Acute Changes Rate From EC O2 Sat by Pulse Oximetry: 100 (RA) Pulse Ox Interpretation: Normal - Radiology CXR: Interpreted by Me ([facility]), Viewed By Me CXR Interpretation: Yes: No Acute Disease Progress - Re-Evaluation Re-evaluation Note: 09/25/18 17:23 D/W DR Arabella RUTH, STATES REFERRED PT IN FOR ADMISSION. LABS, CT PENDING - Data Reviewed Data Reviewed: Lab, Diagnostic imaging, Old records Medical Decision Making Medical Decision Making: Initial plan: -CT ABD & Pelvis IV Contrast only -Blood sent. -EKG -CXR -Urinalysis Progress/Update: snf records reviewed. Ulcer colitis per records. No GI eval per records. Disposition Counseled Patient/Family Regarding: Studies Performed, Diagnosis - Disposition Disposition: HOSPITALIZED Disposition Time: 17:24 Condition: STABLE - POA Present On Arrival: None - Clinical Impression Clinical Impression: Abdominal pain, Lower GI bleed - Scribe Statement The provider has reviewed the documentation as recorded by the Scribe (Joya Banks) Provider Attestation: All medical record entries made by the Dino were at my direction and personally dictated by me. I have reviewed the chart and agree that the record accurately reflects my personal performance of the history, physical exam, medical decision making, and the department course for this patient. I have also personally directed, reviewed, and agree with the discharge instructions and disposition.
[2018-09-25] MEDS ORDERED: Iodixanol 320 MG/ML 100 ML BOTTLE IV ONE (17:11)
[2018-09-25 17:22] LABS: BASO # 0.1 K/uL (0.0-0.2); BASO % 1.3 % (0.0-2.0); EOS # 0.2 K/uL (0.0-0.7); HEMOGLOBIN 10.4 g/dL (12.0-18.0); LYMPH # 2.1 K/uL (1.0-4.3); LYMPH % 22.2 % (20.0-40.0); MEAN CELL VOLUME 89.8 fL (80.0-94.0); MEAN CORPUSCULAR HEMOGLOBIN 28.9 pg (27.0-31.0); MEAN CORPUSCULAR HGB CONC 32.1 g/dL (33.0-37.0); MEAN PLATELET VOLUME 7.5 fL (7.2-11.7); MONO # 0.7 K/uL (0.0-0.8); NEUT # 6.4 K/uL (1.8-7.0); NEUT % 67.5 % (50.0-75.0); RBC 3.6 Mil/uL (4.40-5.90); RED CELL DISTRIBUTION WIDTH 15.8 % (11.5-14.5); WHITE BLOOD COUNT 9.5 K/uL (4.8-10.8)
[2018-09-25 17:34] LABS: ALB/GLOB RATIO 1.2 (1.0-2.1); ALBUMIN 3.9 g/dL (3.5-5.0); ALT/SGPT 14 U/L (21-72); AST/SGOT 26 U/L (17-59); BLOOD UREA NITROGEN 17 mg/dL (9-20); CALCIUM 8.7 mg/dl (8.6-10.4); GFR NON-AFRICAN AMERICAN > 60
--- NOTE | 2018-09-25 17:35 | RAD ---
Date of service: 09/25/2018 PROCEDURE: CHEST RADIOGRAPH, 1 VIEW HISTORY: GI Bleeding COMPARISON: Comparison is made with 08/19/2018 FINDINGS: LUNGS: Interval improvement in the previously seen pulmonary vascular congestion. PLEURA: No pneumothorax or pleural fluid seen. CARDIOVASCULAR: There is atherosclerotic calcification noted at the aortic knob. Normal. OSSEOUS STRUCTURES: No significant abnormalities. VISUALIZED UPPER ABDOMEN: Normal. OTHER FINDINGS: None. IMPRESSION: Interval improvement in the lungs noted since the previous exam.
[2018-09-25 17:41] LABS: INR 2.4; PROTHROMBIN TIME 26.6 SECONDS (9.7-12.2)
--- NOTE | 2018-09-25 20:34 | PCM.RRT ---
FOOD MANAGEMENT AIDE Nurses Assessment - Situation Date: 09/25/18 Time FOOD MANAGEMENT AIDE was called: 20:25 FOOD MANAGEMENT AIDE Responder Arrival Time:: 20:26 FOOD MANAGEMENT AIDE Location:: T Med/Surg FOOD MANAGEMENT AIDE Reason for Call: Tachycardia - Ventilator Settings Ventilator Respiratory Rate Settin Ventilator Tidal Volume Settin - Stat Labs Ordered FOOD MANAGEMENT AIDE Stat Labs Ordered: CBC, BMP, TROPONIN, LACTIC ACID - Constitutional Appears: In Acute Distress - Eyes Eye Exam: EOMI, Normal appearance - Respiratory Exam Respiratory Exam: Rales, Wheezes - Cardiovascular Exam Cardiovascular Exam: Irregular Rhythm - Neurological Exam Neurological Exam: absent: Oriented x3 Plan - Assessment of Findings&Treatment Plan ordered cbc cmp mg phos ekg shaun Pt in afib RVR Hr 170s at highest cardizem 5 IVP x2: HR now 110s CXR appears abnormal, infiltrates/fluid collection?, f/u f/u with PMD for recs, consider cardio consult
[2018-09-25] MEDS ORDERED: Metoprolol 1 mg/ml Inj IVP ONE ×2 (21:15→22:45)
[2018-09-25 22:39] LABS: BASO # 0.1 K/uL (0.0-0.2); BASO % 0.6 % (0.0-2.0); EOS # 0.2 K/uL (0.0-0.7); HEMOGLOBIN 10.8 g/dL (12.0-18.0); LYMPH # 3.1 K/uL (1.0-4.3); LYMPH % 27.5 % (20.0-40.0); MEAN CELL VOLUME 90.6 fL (80.0-94.0); MEAN CORPUSCULAR HEMOGLOBIN 28.8 pg (27.0-31.0); MEAN CORPUSCULAR HGB CONC 31.8 g/dL (33.0-37.0); MEAN PLATELET VOLUME 7.8 fL (7.2-11.7); MONO # 0.6 K/uL (0.0-0.8); MONO % 5.3 % (0.0-10.0); NEUT # 7.2 K/uL (1.8-7.0); NEUT % 64.6 % (50.0-75.0); NRBC % 0.1 % (0.0-2.0); RBC 3.74 Mil/uL (4.40-5.90); RED CELL DISTRIBUTION WIDTH 16.1 % (11.5-14.5); WHITE BLOOD COUNT 11.2 K/uL (4.8-10.8)
[2018-09-25 23:16] LABS: ABG ALLEN TEST POS; ARTERIAL BLOOD GAS HCO3 25.7 mmol/L (21-28); ARTERIAL BLOOD GAS O2 SAT 99.7 % (95-98); ARTERIAL BLOOD GAS PCO2 38 mm/Hg (35-45); ARTERIAL BLOOD GAS PH 7.43 (7.35-7.45); ARTERIAL BLOOD GAS PO2 102 mm/Hg (80-100); ARTERIAL BLOOD GAS TCO2 26.4 mmol/L (22-28)
[2018-09-25 23:51] LABS: ALB/GLOB RATIO 1.1 (1.0-2.1); ALBUMIN 3.8 g/dL (3.5-5.0); ALT/SGPT 22 U/L (21-72); AST/SGOT 35 U/L (17-59); BLOOD UREA NITROGEN 16 mg/dL (9-20); CALCIUM 8.9 mg/dl (8.6-10.4); GFR NON-AFRICAN AMERICAN > 60
[2018-09-26 00:02] LABS: CK-MB 0.56 ng/mL (0.0-3.38)
[2018-09-26 01:45] VITALS: RESP 20
[2018-09-26] MEDS: Levothyroxine 25 MCG TAB PO SCH (07:29)
--- NOTE | 2018-09-26 08:51 | CT ---
Date of service: 09/25/2018 PROCEDURE: CT Abdomen and Pelvis with contrast HISTORY: GI Bleeding COMPARISON: Comparison is made with 01/29/2018 TECHNIQUE: Contrast dose: 100 mL Visipaque 320 intravenously. Axial and reformatted coronal and sagittal CT images of the abdomen and pelvis were obtained after IV contrast administration. Radiation dose: Total exam DLP = 1008.85 mGy-cm. This CT exam was performed using one or more of the following dose reduction techniques: Automated exposure control, adjustment of the mA and/or kV according to patient size, and/or use of iterative reconstruction technique. FINDINGS: LOWER THORAX: There are small linear opacities noted at the lung bases likely atelectasis or scar tissue. No evidence of pericardial effusion. The heart is enlarged. No evidence of significant pleural effusion. LIVER: Again noted are multiple simple and complex cystic lesions in the liver. GALLBLADDER AND BILE DUCTS: The gallbladder is partially distended. There is 2 millimeter calcification noted at or adjacent to the gallbladder neck. PANCREAS: There is 6.5 millimeters cyst at pancreatic body best seen on image 31 series 2. No evidence of acute pancreatitis or dilated main pancreatic duct SPLEEN: Unremarkable. ADRENALS: Unremarkable. No mass. KIDNEYS AND URETERS: Unremarkable. No hydronephrosis. No solid mass. VASCULATURE: The abdominal aorta is normal in caliber. There is diffuse atherosclerotic calcification in the abdominal aorta and iliac artery. BOWEL: Unremarkable. No obstruction. No gross mural thickening. APPENDIX: No evidence of appendicitis. PERITONEUM: Unremarkable. No free fluid. No free air. LYMPH NODES: Unremarkable. No enlarged lymph nodes. BLADDER: Mild urinary bladder wall thickening is noted. REPRODUCTIVE: Moderately enlarged prostate is again noted with enlargement of median lobe which indenting on the base of the urinary bladder. BONES: No acute fracture. OTHER FINDINGS: Again seen is subcutaneous heterogeneous oval-shaped lesion contains calcification at right buttock likely represent posttraumatic changes or granuloma. IMPRESSION: Suboptimal assessment of the GI system. No evidence of obstructing mass. Suspicious for 2 millimeter gallbladder stone. No evidence of acute cholecystitis. Enlarged prostate. Mild urinary bladder wall thickening. No evidence of acute pathology in the abdomen and pelvis. No significant interval changes. Preliminary report was submitted by [facility] Radiology contains concordant findings.
[2018-09-26] MEDS: Sodium Chloride 0.9% 1,000 ML IV SCH (11:36)
--- NOTE | 2018-09-26 13:07 | CP.PCM.HP ---
Past Patient History - Infectious Disease Hx of Infectious Diseases: None - Past Medical History & Family History Past Medical History?: Yes - Past Social History Smoking Status: Former Smoker - CARDIAC Hx Atrial Fibrillation: Yes Hx Cardia Arrhythmia: (A FIB) Hx Congestive Heart Failure: Yes Hx Hypercholesterolemia: Yes Hx Hypertension: Yes - PULMONARY Hx Respiratory Disorders: No - NEUROLOGICAL Hx Alzheimer's Disease: Yes Hx Dementia: Yes - HEENT Hx HEENT Problems: No - RENAL Hx Chronic Kidney Disease: No - ENDOCRINE/METABOLIC Hx Hypothyroidism: Yes - HEMATOLOGICAL/ONCOLOGICAL Hx Blood Disorders: No - INTEGUMENTARY Hx Dermatological Problems: No - MUSCULOSKELETAL/RHEUMATOLOGICAL Hx Falls: Yes - GASTROINTESTINAL Hx Gastrointestinal Disorders: No - GENITOURINARY/GYNECOLOGICAL Hx Prostate Problems: Yes - PSYCHIATRIC Hx Substance Use: No - SURGICAL HISTORY Hx Carotid Endarterectomy: Yes (RIGHT) - ANESTHESIA Hx Anesthesia: Yes Hx Anesthesia Reactions: No Hx Malignant Hyperthermia: No Meds Allergies/Adverse Reactions: Allergies Allergy/AdvReac Type Severity Reaction Status Date / Time No Known Allergies Allergy Verified 08/11/18 14:21 Physical Exam - Constitutional Appears: Well - Head Exam Head Exam: ATRAUMATIC, NORMAL INSPECTION, NORMOCEPHALIC - Eye Exam Eye Exam: EOMI, Normal appearance, PERRL Pupil Exam: NORMAL ACCOMODATION, PERRL - ENT Exam ENT Exam: Mucous Membranes Moist, Normal Exam - Neck Exam Neck exam: Positive for: Normal Inspection - Respiratory Exam Respiratory Exam: Decreased Breath Sounds - Cardiovascular Exam Cardiovascular Exam: REGULAR RHYTHM, +S1, +S2 - GI/Abdominal Exam GI & Abdominal Exam: Diminished Bowel Sounds, Soft - Rectal Exam Rectal Exam: Deferred Results - Vital Signs Recent Vital Signs: Last Vital Signs Temp 98.0 F 09/26/18 08:40 Pulse 98 H 09/26/18 08:40 Resp 20 09/26/18 08:40 BP 128/87 09/26/18 11:35 Pulse Ox 97 09/26/18 10:24 - Labs Result Diagrams: 09/25/18 22:34 09/25/18 22:34 Labs: Laboratory Results - last 24 hr 09/25/18 09/25/18 09/25/18 17:19 17:19 17:19 WBC 9.5 RBC 3.60 L Hgb 10.4 L Hct 32.3 L MCV 89.8 D MCH 28.9 MCHC 32.1 L RDW 15.8 H Plt Count 260 D MPV 7.5 Neut % (Auto) 67.5 Lymph % (Auto) 22.2 Toombs % (Auto) 7.0 Eos % (Auto) 2.0 Baso % (Auto) 1.3 Neut # (Auto) 6.4 Lymph # (Auto) 2.1 Toombs # (Auto) 0.7 Eos # (Auto) 0.2 Baso # (Auto) 0.1 PT 26.6 H INR 2.4 APTT 42 H Puncture Site pCO2 pO2 HCO3 ABG pH ABG Total CO2 ABG O2 Saturation ABG Base Excess Danny Test ABG Potassium A-a O2 Difference Respiratory Index Glucose Lactate Liter Flow FiO2 Sodium 137 Potassium 4.2 Chloride 103 Carbon Dioxide 28 Anion Gap 11 BUN 17 Creatinine 1.0 Est GFR ( Amer) > 60 Est GFR (Non-Af Amer) > 60 POC Glucose (mg/dL) Random Glucose 95 Calcium 8.7 Phosphorus Magnesium Total Bilirubin 0.4 AST 26 ALT 14 L D Alkaline Phosphatase 93 Total Creatine Kinase CK-MB (Mass) Troponin I Total Protein 7.1 Albumin 3.9 Globulin 3.2 Albumin/Globulin Ratio 1.2 Free T4 TSH 3rd Generation Arterial Blood Potassium Blood Type Antibody Screen 09/25/18 09/25/18 09/25/18 17:51 19:20 20:36 WBC RBC Hgb Hct MCV MCH MCHC RDW Plt Count MPV Neut % (Auto) Lymph % (Auto) Toombs % (Auto) Eos % (Auto) Baso % (Auto) Neut # (Auto) Lymph # (Auto) Toombs # (Auto) Eos # (Auto) Baso # (Auto) PT INR APTT Puncture Site pCO2 pO2 HCO3 ABG pH ABG Total CO2 ABG O2 Saturation ABG Base Excess Danny Test ABG Potassium A-a O2 Difference Respiratory Index Glucose Lactate Liter Flow FiO2 Sodium Potassium Chloride Carbon Dioxide Anion Gap BUN Creatinine Est GFR ( Amer) Est GFR (Non-Af Amer) POC Glucose (mg/dL) 101 138 H Random Glucose Calcium Phosphorus Magnesium Total Bilirubin AST ALT Alkaline Phosphatase Total Creatine Kinase CK-MB (Mass) Troponin I Total Protein Albumin Globulin Albumin/Globulin Ratio Free T4 TSH 3rd Generation Arterial Blood Potassium Blood Type O POSITIVE Antibody Screen Negative 09/25/18 09/25/18 09/25/18 22:34 22:34 22:34 WBC 11.2 H RBC 3.74 L Hgb 10.8 L Hct 33.9 L MCV 90.6 MCH 28.8 MCHC 31.8 L RDW 16.1 H Plt Count 284 MPV 7.8 Neut % (Auto) 64.6 Lymph % (Auto) 27.5 Toombs % (Auto) 5.3 Eos % (Auto) 2.0 Baso % (Auto) 0.6 Neut # (Auto) 7.2 H Lymph # (Auto) 3.1 Toombs # (Auto) 0.6 Eos # (Auto) 0.2 Baso # (Auto) 0.1 PT INR APTT Puncture Site pCO2 pO2 HCO3 ABG pH ABG Total CO2 ABG O2 Saturation ABG Base Excess Danny Test ABG Potassium A-a O2 Difference Respiratory Index Glucose Lactate Liter Flow FiO2 Sodium 136 Potassium 3.7 Chloride 103 Carbon Dioxide 22 Anion Gap 15 BUN 16 Creatinine 1.0 Est GFR ( Amer) > 60 Est GFR (Non-Af Amer) > 60 POC Glucose (mg/dL) Random Glucose 135 H D Calcium 8.9 Phosphorus 4.4 Magnesium 1.8 Total Bilirubin 0.5 AST 35 ALT 22 Alkaline Phosphatase 100 Total Creatine Kinase 82 CK-MB (Mass) 0.56 Troponin I 0.0200 Total Protein 7.2 Albumin 3.8 Globulin 3.4 Albumin/Globulin Ratio 1.1 Free T4 0.95 TSH 3rd Generation 6.54 H Arterial Blood Potassium Blood Type Antibody Screen 09/25/18 09/26/18 09/26/18 23:05 06:25 12:27 WBC RBC Hgb Hct MCV MCH MCHC RDW Plt Count MPV Neut % (Auto) Lymph % (Auto) Toombs % (Auto) Eos % (Auto) Baso % (Auto) Neut # (Auto) Lymph # (Auto) [place]ombs # (Auto) Eos # (Auto) Baso # (Auto) PT INR APTT Puncture Site Rra pCO2 38 pO2 102 H HCO3 25.7 ABG pH 7.43 ABG Total CO2 26.4 ABG O2 Saturation 99.7 H ABG Base Excess 1.0 Danny Test Pos ABG Potassium 3.6 A-a O2 Difference 50.0 Respiratory Index 0.5 Glucose 116 H Lactate 0.9 Liter Flow 2.0 FiO2 28.0 Sodium 139.0 Potassium Chloride 107.0 Carbon Dioxide Anion Gap BUN Creatinine Est GFR ( Amer) Est GFR (Non-Af Amer) POC Glucose (mg/dL) 111 H 114 H Random Glucose Calcium Phosphorus Magnesium Total Bilirubin AST ALT Alkaline Phosphatase Total Creatine Kinase CK-MB (Mass) Troponin I Total Protein Albumin Globulin Albumin/Globulin Ratio Free T4 TSH 3rd Generation Arterial Blood Potassium 3.6 Blood Type Antibody Screen
[2018-09-27] MEDS: Levothyroxine 25 MCG TAB PO SCH (06:03)
[2018-09-27] MEDS: Sodium Chloride 0.9% 1,000 ML IV SCH (06:15)
--- NOTE | 2018-09-27 09:12 | CP.PCM.CON ---
<Byron Peralta - Last Filed: 09/27/18 09:27> History of Present Illness - History of Present Illness History of Present Illness: PGY6 GI Fellow Consult Note Patient is an 83yo male with PMHx significant for recent cardiac arrest in August 2018, triple vessel CAD s/p PCI, on Plavix, atrial fibrillation on Xarelto, systolic CHF with recent EF 20%, aortic valve sclerosis, PVD, DM, HTN, dyslipidemia, hypothyroidism, CVA with left sided deficits, benign liver cysts and dementia who presented to the ED with bright red blood per rectum. The patient is unable to provide medical history but his stepdaughter Dorothea is at bedside to assist. States that he recently returned home from [facility] prolonged hospitalization in August 2018 for cardiac arrest. Patient passed hard, formed stool and was noted to have bright red blood when cleaning following defecation and was brought to the ED for evaluation. The patient admits to painful defecation. Currently, he has no abdominal pain, fever, chills, nausea, vomiting and has not had any significant weight loss in the last 4-6 weeks. No prior colonoscopy. 12 system ROS limited given cognitive impairment PMHx: See HPI PSHx: Right carotid endarterectomy FHx: Discussed and no significant family history noted Social: Former smoker, denies EtOH or illicit drug use history Endo: EGD - 03/2016 - Mild gastritis Past Patient History - Infectious Disease Hx of Infectious Diseases: None - Past Medical History & Family History Past Medical History?: Yes - Past Social History Smoking Status: Former Smoker - CARDIAC Hx Atrial Fibrillation: Yes Hx Cardia Arrhythmia: (A FIB) Hx Congestive Heart Failure: Yes Hx Hypercholesterolemia: Yes Hx Hypertension: Yes - PULMONARY Hx Respiratory Disorders: No - NEUROLOGICAL Hx Alzheimer's Disease: Yes Hx Dementia: Yes - HEENT Hx HEENT Problems: No - RENAL Hx Chronic Kidney Disease: No - ENDOCRINE/METABOLIC Hx Hypothyroidism: Yes - HEMATOLOGICAL/ONCOLOGICAL Hx Blood Disorders: No - INTEGUMENTARY Hx Dermatological Problems: No - MUSCULOSKELETAL/RHEUMATOLOGICAL Hx Falls: Yes - GASTROINTESTINAL Hx Gastrointestinal Disorders: No - GENITOURINARY/GYNECOLOGICAL Hx Prostate Problems: Yes - PSYCHIATRIC Hx Substance Use: No - SURGICAL HISTORY Hx Carotid Endarterectomy: Yes (RIGHT) - ANESTHESIA Hx Anesthesia: Yes Hx Anesthesia Reactions: No Hx Malignant Hyperthermia: No Meds Allergies/Adverse Reactions: Allergies Allergy/AdvReac Type Severity Reaction Status Date / Time No Known Allergies Allergy Verified 08/11/18 14:21 - Medications Medications: Current Medications Furosemide (Lasix) 20 mg IVP DAILY [facility] Last Admin: 09/26/18 11:35 Dose: 20 mg Sodium Chloride (Sodium Chloride 0.9%) 1,000 mls @ 50 mls/hr IV .Q20H [facility] Last Admin: 09/27/18 06:15 Dose: 50 mls/hr Levothyroxine Sodium (Synthroid) 25 mcg PO DAILY@0630 [facility] Last Admin: 09/27/18 06:03 Dose: 25 mcg Metoprolol Tartrate (Lopressor) 25 mg PO BID [facility] Last Admin: 09/26/18 17:52 Dose: 25 mg Pantoprazole Sodium (Protonix Inj) 40 mg IVP DAILY [facility] Last Admin: 09/26/18 11:35 Dose: 40 mg Tamsulosin HCl (Flomax) 0.4 mg PO DAILY [facility] Last Admin: 09/26/18 09:51 Dose: 0.4 mg Temazepam (Restoril) 15 mg PO HS PRN PRN Reason: Insomnia Last Admin: 09/26/18 21:57 Dose: 15 mg Physical Exam - Constitutional Appears: Non-toxic, No Acute Distress, Confused - Eye Exam Eye Exam: EOMI, PERRL - ENT Exam ENT Exam: Mucous Membranes Moist - Respiratory Exam Respiratory Exam: Clear to Auscultation Bilateral. absent: Rales, Rhonchi, Wheezes - Cardiovascular Exam Cardiovascular Exam: Irregular Rhythm, +S1, +S2 - GI/Abdominal Exam GI & Abdominal Exam: Normal Bowel Sounds, Soft. absent: Distended, Firm, Guardi ng, Mass, Organomegaly, Rigid, Tenderness - Rectal Exam Rectal Exam: absent: Black Stool, Bloody Stool, Fecal Impaction Additional comments: internal hemorrhoid and anal fissure - Extremities Exam Extremities exam: Positive for: normal inspection. Negative for: pedal edema - Neurological Exam Neurological exam: Alert Additional comments: confused - AAOx1 (name) - Psychiatric Exam Psychiatric exam: Normal Affect, Normal Mood - Skin Skin Exam: Dry, Warm Results - Vital Signs Recent Vital Signs: Last Vital Signs Temp 97.4 F L 09/26/18 23:28 Pulse 96 H 09/27/18 08:00 Resp 20 09/26/18 23:28 BP 123/78 09/26/18 23:28 Pulse Ox 98 09/26/18 23:28 - Labs Result Diagrams: 09/25/18 22:34 09/25/18 22:34 Labs: Laboratory Results - last 24 hr 09/26/18 09/26/18 09/26/18 12:27 17:09 21:22 POC Glucose (mg/dL) 114 H 103 115 H 09/27/18 06:16 POC Glucose (mg/dL) 100 Assessment & Plan - Assessment and Plan (Free Text) Assessment: Patient is an 83yo male with PMHx significant for recent cardiac arrest in August 2018, triple vessel CAD s/p PCI, on Plavix, atrial fibrillation on Xarelto, systolic CHF with recent EF 20%, aortic valve sclerosis, PVD, DM, HTN, dyslipidemia, hypothyroidism, CVA with left sided deficits, benign liver cysts and dementia who presented to the ED with bright red blood per rectum -Rectal bleeding; suspect hemorrhoidal bleeding but differential includes ischemic colitis given significant cardiac history -Rectal pain, anal fissure -CAD s/p PCI on Plavix -Atrial fibrillation on Xarelto Plan: -Supportive care, diet as tolerated -CT imaging reviewed - no obvious colitis noted; chronic changes noted -Suspect rectal bleeding a result of large internal hemorrhoid and pain 2/2 anal fissure -Start Colace BID -Use Lidocaine topical for rectal discomfort -Given significant and recent cardiac arrest, PCI and stent placement and ongoing cardiac issues with EF 20% - would defer endoscopic evaluation - explained to family at bedside -Will continue to monitor clinical course - Date & Time Date: 09/27/18 Time: 07:15 <Yobani Dang - Last Filed: 09/27/18 11:01> Meds - Medications Medications: Current Medications Docusate Sodium (Colace) 100 mg PO BID [facility] Last Admin: 09/27/18 09:43 Dose: 100 mg Furosemide (Lasix) 20 mg IVP DAILY [facility] Last Admin: 09/27/18 09:43 Dose: 20 mg Hydrocortisone (Anusol-Hc) 1 gm CO BID [facility] Stop: 10/10/18 18:01 Last Admin: 09/27/18 10:52 Dose: 1 applic Sodium Chloride (Sodium Chloride 0.9%) 1,000 mls @ 50 mls/hr IV .Q20H [facility] Last Admin: 09/27/18 06:15 Dose: 50 mls/hr Levothyroxine Sodium (Synthroid) 25 mcg PO DAILY@0630 [facility] Last Admin: 09/27/18 06:03 Dose: 25 mcg Metoprolol Tartrate (Lopressor) 25 mg PO BID [facility] Last Admin: 09/27/18 09:43 Dose: 25 mg Pantoprazole Sodium (Protonix Inj) 40 mg IVP DAILY [facility] Last Admin: 09/27/18 09:44 Dose: 40 mg Tamsulosin HCl (Flomax) 0.4 mg PO DAILY [facility] Last Admin: 09/27/18 09:43 Dose: 0.4 mg Temazepam (Restoril) 15 mg PO HS PRN PRN Reason: Insomnia Last Admin: 09/26/18 21:57 Dose: 15 mg Results - Vital Signs Recent Vital Signs: Last Vital Signs Temp 97.4 F L 09/26/18 23:28 Pulse 96 H 09/27/18 08:00 Resp 20 09/26/18 23:28 BP 111/73 09/27/18 09:43 Pulse Ox 98 09/26/18 23:28 - Labs Result Diagrams: 09/25/18 22:34 09/25/18 22:34 Labs: Laboratory Results - last 24 hr 09/26/18 09/26/18 09/26/18 12:27 17:09 21:22 POC Glucose (mg/dL) 114 H 103 115 H 09/27/18 06:16 POC Glucose (mg/dL) 100 Attending/Attestation - Attestation I have personally seen and examined this patient.: Yes I have fully participated in the care of the patient.: Yes I have reviewed all pertinent clinical information: Yes Notes (Text): 09/27/18 10:54 I have seen and examined patient with GI fellow. Agree with above documentation with the following additions. In brief, this is an 83 year old male with history of dementia, CAD s/p stent, atrial fibrillation on xarelto, CHF, DM, HTN, CVA, hypothyroidism who presents to hospital with complaint of rectal bleeding. Patient is not able to participate in meaningful conversation, additional information obtained via chart review, discussion with nursing staff and patient's daughter at bedside. He apparently has been complaining of pain during defecation with constipation over the past one week with recent passing of fresh red blood in stool. There is no reported abdominal pain, nausea, vomiting, fever/chills, weight loss. He had an EGD in 2016 which showed gastritis, no prior colonoscopy. Dementia CAD s/p stent Atrial fibrillation on xarelto CHF DM HTN CVA Hypothyroidism Rectal bleeding - likely secondary to anal fissure present on rectal examination today - Diet as tolerated - Suggest beginning stool softner therapy twice daily - H/H stable, continue to monitor - Trial of topical rectal lidocaine jelly applied twice daily - Increase PO water and fiber intake to prevent constipation - Currently no clinical indication for endoscopic evaluation, will continue to monitor patient clinical course
[2018-09-27] MEDS ORDERED: Lidocaine 2% Jelly (30 ml) TOP ONE (09:30)
[2018-09-27] MEDS: Hydrocortisone 2.5% Rectal Cream(30 gm) PR SCH ×2 (10:52→17:22)
--- NOTE | 2018-09-27 14:23 | CP.PCM.PN ---
Subjective - Date & Time of Evaluation Date of Evaluation: 09/27/18 Time of Evaluation: 13:15 - Subjective Subjective: clinically same Objective - Vital Signs/Intake and Output Vital Signs (last 24 hours): Temp Pulse Resp BP Pulse Ox 97.4 F L 108 H 20 111/73 97 09/27/18 07:00 09/27/18 12:00 09/27/18 07:00 09/27/18 09:43 09/27/18 07:00 - Medications Medications: Current Medications Docusate Sodium (Colace) 100 mg PO BID [facility] Last Admin: 09/27/18 09:43 Dose: 100 mg Furosemide (Lasix) 20 mg IVP DAILY [facility] Last Admin: 09/27/18 09:43 Dose: 20 mg Hydrocortisone (Anusol-Hc) 1 gm [place] BID [facility] Stop: 10/10/18 18:01 Last Admin: 09/27/18 10:52 Dose: 1 applic Sodium Chloride (Sodium Chloride 0.9%) 1,000 mls @ 50 mls/hr IV .Q20H [facility] Last Admin: 09/27/18 06:15 Dose: 50 mls/hr Levothyroxine Sodium (Synthroid) 25 mcg PO DAILY@0630 [facility] Last Admin: 09/27/18 06:03 Dose: 25 mcg Lidocaine HCl (Lidocaine Hydrochloride Jelly 2% 5 Ml) 1 ml TOP BID [facility] Stop: 10/11/18 10:01 Metoprolol Tartrate (Lopressor) 25 mg PO BID [facility] Last Admin: 09/27/18 09:43 Dose: 25 mg Pantoprazole Sodium (Protonix Inj) 40 mg IVP DAILY [facility] Last Admin: 09/27/18 09:44 Dose: 40 mg Tamsulosin HCl (Flomax) 0.4 mg PO DAILY [facility] Last Admin: 09/27/18 09:43 Dose: 0.4 mg Temazepam (Restoril) 15 mg PO HS PRN PRN Reason: Insomnia Last Admin: 09/26/18 21:57 Dose: 15 mg - Labs Labs: 09/25/18 22:34 09/25/18 22:34 PT 26.6 SECONDS (9.7-12.2) H 09/25/18 17:19 INR 2.4 09/25/18 17:19 APTT 42 SECONDS (21-34) H 09/25/18 17:19
[2018-09-27] MEDS: Lidocaine 2% Jelly (5 ml) TOP SCH (17:22)
[2018-09-28] MEDS: Sodium Chloride 0.9% 1,000 ML IV SCH ×2 (03:00→22:26)
[2018-09-28] MEDS: Levothyroxine 25 MCG TAB PO SCH (05:30)
--- NOTE | 2018-09-28 07:57 | CP.PCM.PN ---
<Byron Peralta - Last Filed: 09/28/18 08:21> Subjective - Date & Time of Evaluation Date of Evaluation: 09/28/18 Time of Evaluation: 07:15 - Subjective Subjective: PGY6 GI Fellow Progress Note Patient seen and examined bedside this morning. The patient states that he feels well and has no complaints at present. Discussed case with nursing staff who state patient has not had any episodes of hematochezia or melena. Nursing staff do note patient discomfort with application of Anusol and Lidocaine [place]. 12 system ROS limited given cognitive impairment Objective - Vital Signs/Intake and Output Vital Signs (last 24 hours): Temp Pulse Resp BP Pulse Ox 97.6 F 108 H 20 178/72 H 96 09/28/18 07:10 09/28/18 07:10 09/28/18 07:10 09/28/18 07:10 09/28/18 07:10 Intake and Output: 09/28/18 09/28/18 06:59 18:59 Intake Total 725 Balance 725 - Medications Medications: Current Medications Docusate Sodium (Colace) 100 mg PO BID [facility] Last Admin: 09/27/18 17:22 Dose: 100 mg Furosemide (Lasix) 20 mg IVP DAILY [facility] Last Admin: 09/27/18 09:43 Dose: 20 mg Hydrocortisone (Anusol-Hc) 1 gm [place] BID [facility] Stop: 10/10/18 18:01 Last Admin: 09/27/18 17:22 Dose: 1 applic Sodium Chloride (Sodium Chloride 0.9%) 1,000 mls @ 50 mls/hr IV .Q20H [facility] Last Admin: 09/28/18 03:00 Dose: Not Given Levothyroxine Sodium (Synthroid) 25 mcg PO DAILY@0630 [facility] Last Admin: 09/27/18 06:03 Dose: 25 mcg Lidocaine HCl (Lidocaine Hydrochloride Jelly 2% 5 Ml) 1 ml TOP BID [facility] Stop: 10/11/18 10:01 Last Admin: 09/27/18 17:22 Dose: 1 ml Metoprolol Tartrate (Lopressor) 25 mg PO BID [facility] Last Admin: 09/27/18 17:22 Dose: 25 mg Pantoprazole Sodium (Protonix Inj) 40 mg IVP DAILY [facility] Last Admin: 09/27/18 09:44 Dose: 40 mg Tamsulosin HCl (Flomax) 0.4 mg PO DAILY [facility] Last Admin: 09/27/18 09:43 Dose: 0.4 mg Temazepam (Restoril) 15 mg PO HS PRN PRN Reason: Insomnia Last Admin: 09/27/18 21:17 Dose: 15 mg - Labs Labs: 09/25/18 22:34 09/25/18 22:34 PT 26.6 SECONDS (9.7-12.2) H 09/25/18 17:19 INR 2.4 09/25/18 17:19 APTT 42 SECONDS (21-34) H 09/25/18 17:19 - Constitutional Appears: Non-toxic, No Acute Distress, Confused - Eye Exam Eye Exam: EOMI, PERRL - ENT Exam ENT Exam: Mucous Membranes Moist - Respiratory Exam Respiratory Exam: Clear to Ausculation Bilateral. absent: Rales, Rhonchi, Wheezes - Cardiovascular Exam Cardiovascular Exam: Irregular Rhythm, +S1, +S2 - GI/Abdominal Exam GI & Abdominal Exam: Soft, Normal Bowel Sounds. absent: Distended, Firm, Guarding, Rigid, Tenderness, Organomegaly - Extremities Exam Extremities Exam: Normal Inspection. absent: Pedal Edema - Neurological Exam Neurological Exam: Alert, Awake. absent: Oriented x3 - Psychiatric Exam Psychiatric exam: Normal Affect, Normal Mood - Skin Skin Exam: Dry, Warm Assessment and Plan - Assessment and Plan (Free Text) Assessment: Patient is an 83yo male with PMHx significant for recent cardiac arrest in August 2018, triple vessel CAD s/p PCI, on Plavix, atrial fibrillation on Xare lto, systolic CHF with recent EF 20%, aortic valve sclerosis, PVD, DM, HTN, dyslipidemia, hypothyroidism, CVA with left sided deficits, benign liver cysts and dementia who presented to the ED with bright red blood per rectum -Rectal bleeding; suspect hemorrhoidal bleeding but differential includes i schemic colitis given significant cardiac history -Rectal pain, anal fissure -CAD s/p PCI on Plavix -Atrial fibrillation on Xarelto Plan: -Anusol-HC and Lidocaine gel for internal hemorrhoid and anal fissure - continue twice daily for two weeks -Continue Colace BID as ordered -Ongoing supportive care, diet as tolerated -No plan for endoscopic evaluation at this time in the absence of overt GI bleeding and inherent risk to patient given recent cardiac arrest, PCI and stent placement and ongoing cardiac issues with EF 20% <Yobani Dang - Last Filed: 09/28/18 08:57> Objective - Vital Signs/Intake and Output Vital Signs (last 24 hours): Temp Pulse Resp BP Pulse Ox 97.6 F 108 H 20 178/72 H 96 09/28/18 07:10 09/28/18 07:10 09/28/18 07:10 09/28/18 07:10 09/28/18 07:10 Intake and Output: 09/28/18 09/28/18 06:59 18:59 Intake Total 725 Balance 725 - Medications Medications: Current Medications Docusate Sodium (Colace) 100 mg PO BID [facility] Last Admin: 09/27/18 17:22 Dose: 100 mg Furosemide (Lasix) 20 mg IVP DAILY [facility] Last Admin: 09/27/18 09:43 Dose: 20 mg Hydrocortisone (Anusol-Hc) 1 gm [place] BID [facility] Stop: 10/10/18 18:01 Last Admin: 09/27/18 17:22 Dose: 1 applic Sodium Chloride (Sodium Chloride 0.9%) 1,000 mls @ 50 mls/hr IV .Q20H [facility] Last Admin: 09/28/18 03:00 Dose: Not Given Levothyroxine Sodium (Synthroid) 25 mcg PO DAILY@0630 [facility] Last Admin: 09/27/18 06:03 Dose: 25 mcg Lidocaine HCl (Lidocaine Hydrochloride Jelly 2% 5 Ml) 1 ml TOP BID [facility] Stop: 10/11/18 10:01 Last Admin: 09/27/18 17:22 Dose: 1 ml Metoprolol Tartrate (Lopressor) 25 mg PO BID [facility] Last Admin: 09/27/18 17:22 Dose: 25 mg Pantoprazole Sodium (Protonix Inj) 40 mg IVP DAILY [facility] Last Admin: 09/27/18 09:44 Dose: 40 mg Tamsulosin HCl (Flomax) 0.4 mg PO DAILY [facility] Last Admin: 09/27/18 09:43 Dose: 0.4 mg Temazepam (Restoril) 15 mg PO HS PRN PRN Reason: Insomnia Last Admin: 09/27/18 21:17 Dose: 15 mg - Labs Labs: 09/25/18 22:34 09/25/18 22:34 PT 26.6 SECONDS (9.7-12.2) H 09/25/18 17:19 INR 2.4 09/25/18 17:19 APTT 42 SECONDS (21-34) H 09/25/18 17:19 Attending/Attestation - Attestation I have personally seen and examined this patient.: Yes I have fully participated in the care of the patient.: Yes I have reviewed all pertinent clinical information, including history, physical exam and plan: Yes Notes (Text): 09/28/18 08:50 I have seen and examined patient with GI fellow. No acute events overnight, he is seen resting in bed comfortably eating breakfast. He denies abdominal pain, nausea, vomiting, fever/chills. CAD s/p stent on plavix CHF Atrial fibrillation on xarelto PVD DM/HTN CVA Hypothyroidism Rectal bleeding - presence of anal fissure on examination - Diet as tolerated - Continue use of twice daily stool softner therapy - Encourage increased PO water and fiber intake to prevent constipation - Suggest ongoing use of topical hydrocortisone cream and lidocaine jelly to anal area twice daily - Suggest daily sitz bath - No further planned GI intervention at this time, will sign off case. Please reconsult as necessary, thank you.
[2018-09-28] MEDS: Lidocaine 2% Jelly (5 ml) TOP SCH ×2 (11:00→17:34)
[2018-09-28] MEDS: Hydrocortisone 2.5% Rectal Cream(30 gm) PR SCH ×2 (11:00→17:33)
[2018-09-28 11:44] LABS: BASO % 0.6 % (0.0-2.0); EOS # 0.1 K/uL (0.0-0.7); EOS % 1.5 % (0.0-4.0); HEMOGLOBIN 10.5 g/dL (12.0-18.0); LYMPH # 1.6 K/uL (1.0-4.3); MEAN CORPUSCULAR HEMOGLOBIN 29.6 pg (27.0-31.0); MEAN CORPUSCULAR HGB CONC 32.9 g/dL (33.0-37.0); MEAN PLATELET VOLUME 7.7 fL (7.2-11.7); MONO # 0.5 K/uL (0.0-0.8); MONO % 7.8 % (0.0-10.0); NEUT # 4.1 K/uL (1.8-7.0); NEUT % 65.1 % (50.0-75.0); NRBC % 0.1 % (0.0-2.0); RBC 3.53 Mil/uL (4.40-5.90); RED CELL DISTRIBUTION WIDTH 15.6 % (11.5-14.5); WHITE BLOOD COUNT 6.3 K/uL (4.8-10.8)
[2018-09-28 12:03] LABS: BLOOD UREA NITROGEN 16 mg/dL (9-20); CALCIUM 8.6 mg/dl (8.6-10.4); GFR NON-AFRICAN AMERICAN > 60
--- NOTE | 2018-09-28 18:02 | CP.PCM.PN ---
Subjective - Date & Time of Evaluation Date of Evaluation: 09/28/18 Time of Evaluation: 11:45 - Subjective Subjective: clinically same Objective - Vital Signs/Intake and Output Vital Signs (last 24 hours): Temp Pulse Resp BP Pulse Ox 98.0 F 89 20 135/91 H 98 09/28/18 15:14 09/28/18 15:14 09/28/18 15:14 09/28/18 17:31 09/28/18 15:14 Intake and Output: 09/28/18 09/28/18 06:59 18:59 Intake Total 725 880 Output Total 600 Balance 725 280 - Medications Medications: Current Medications Diphenhydramine HCl (Benadryl) 25 mg PO TID PRN PRN Reason: Itching / Pruritus Last Admin: 09/28/18 17:32 Dose: 25 mg Docusate Sodium (Colace) 100 mg PO BID [facility] Last Admin: 09/28/18 17:32 Dose: 100 mg Furosemide (Lasix) 20 mg IVP DAILY [facility] Last Admin: 09/28/18 09:15 Dose: 20 mg Hydrocortisone (Anusol-Hc) 1 gm [place] BID [facility] Stop: 10/10/18 18:01 Last Admin: 09/28/18 17:33 Dose: 1 applic Sodium Chloride (Sodium Chloride 0.9%) 1,000 mls @ 50 mls/hr IV .Q20H [facility] Last Admin: 09/28/18 03:00 Dose: Not Given Levothyroxine Sodium (Synthroid) 25 mcg PO DAILY@0630 [facility] Last Admin: 09/27/18 06:03 Dose: 25 mcg Lidocaine HCl (Lidocaine Hydrochloride Jelly 2% 5 Ml) 1 ml TOP BID [facility] Stop: 10/11/18 10:01 Last Admin: 09/28/18 17:34 Dose: 1 ml Metoprolol Tartrate (Lopressor) 25 mg PO BID [facility] Last Admin: 09/28/18 17:31 Dose: 25 mg Pantoprazole Sodium (Protonix Inj) 40 mg IVP DAILY [facility] Last Admin: 09/28/18 09:17 Dose: 40 mg Tamsulosin HCl (Flomax) 0.4 mg PO DAILY [facility] Last Admin: 09/28/18 09:15 Dose: 0.4 mg Temazepam (Restoril) 15 mg PO HS PRN PRN Reason: Insomnia Last Admin: 09/27/18 21:17 Dose: 15 mg - Labs Labs: 09/28/18 11:32 09/28/18 11:32 PT 26.6 SECONDS (9.7-12.2) H 09/25/18 17:19 INR 2.4 09/25/18 17:19 APTT 42 SECONDS (21-34) H 09/25/18 17:19
[2018-09-29] MEDS: Levothyroxine 25 MCG TAB PO SCH (05:42)
[2018-09-29] MEDS: Pantoprazole 40 mg EC Tab PO SCH (10:54)
[2018-09-29] MEDS: Lidocaine 2% Jelly (5 ml) TOP SCH ×2 (10:55→18:12)
[2018-09-29] MEDS: Hydrocortisone 2.5% Rectal Cream(30 gm) PR SCH ×2 (10:55→18:13)
--- NOTE | 2018-09-29 17:27 | CP.PCM.PN ---
Subjective - Date & Time of Evaluation Date of Evaluation: 09/29/18 Time of Evaluation: 11:15 - Subjective Subjective: clinically same Objective - Vital Signs/Intake and Output Vital Signs (last 24 hours): Temp Pulse Resp BP Pulse Ox 97.9 F 92 H 20 107/73 95 09/29/18 07:10 09/29/18 07:10 09/29/18 07:10 09/29/18 10:54 09/29/18 07:10 Intake and Output: 09/29/18 09/29/18 06:59 18:59 Intake Total 1000 Output Total 400 Balance 600 - Medications Medications: Current Medications Diphenhydramine HCl (Benadryl) 25 mg PO TID PRN PRN Reason: Itching / Pruritus Last Admin: 09/29/18 10:53 Dose: 25 mg Docusate Sodium (Colace) 100 mg PO BID [facility] Last Admin: 09/29/18 10:54 Dose: 100 mg Furosemide (Lasix) 20 mg IVP DAILY [facility] Last Admin: 09/29/18 10:54 Dose: 20 mg Hydrocortisone (Anusol-Hc) 1 gm [place] BID [facility] Stop: 10/10/18 18:01 Last Admin: 09/29/18 10:55 Dose: 1 applic Levothyroxine Sodium (Synthroid) 25 mcg PO DAILY@0630 [facility] Last Admin: 09/29/18 05:42 Dose: 25 mcg Lidocaine HCl (Lidocaine Hydrochloride Jelly 2% 5 Ml) 1 ml TOP BID [facility] Stop: 10/11/18 10:01 Last Admin: 09/29/18 10:55 Dose: 1 ml Metoprolol Tartrate (Lopressor) 25 mg PO BID [facility] Last Admin: 09/29/18 10:53 Dose: 25 mg Pantoprazole Sodium (Protonix Ec Tab) 40 mg PO DAILY [facility] Last Admin: 09/29/18 10:54 Dose: 40 mg Tamsulosin HCl (Flomax) 0.4 mg PO DAILY [facility] Last Admin: 09/29/18 10:53 Dose: 0.4 mg Temazepam (Restoril) 15 mg PO HS PRN PRN Reason: Insomnia Last Admin: 09/27/18 21:17 Dose: 15 mg - Labs Labs: 09/28/18 11:32 09/28/18 11:32 PT 26.6 SECONDS (9.7-12.2) H 09/25/18 17:19 INR 2.4 09/25/18 17:19 APTT 42 SECONDS (21-34) H 09/25/18 17:19
[2018-09-30] MEDS: Levothyroxine 25 MCG TAB PO SCH (06:16)
[2018-09-30] MEDS: Pantoprazole 40 mg EC Tab PO SCH (09:57)
[2018-09-30] MEDS: Hydrocortisone 2.5% Rectal Cream(30 gm) PR SCH ×2 (11:01→17:15)
[2018-09-30] MEDS: Lidocaine 2% Jelly (5 ml) TOP SCH ×2 (11:02→17:15)
[2018-10-01] MEDS: Levothyroxine 25 MCG TAB PO SCH (06:47)
[2018-10-01 08:19] VITALS: O2SAT 96
[2018-10-01 08:21] LABS: BASO % 0.5 % (0.0-2.0); EOS # 0.2 K/uL (0.0-0.7); EOS % 3.9 % (0.0-4.0); LYMPH # 1.9 K/uL (1.0-4.3); LYMPH % 31.9 % (20.0-40.0); MEAN CELL VOLUME 90.1 fL (80.0-94.0); MEAN CORPUSCULAR HEMOGLOBIN 29.5 pg (27.0-31.0); MEAN CORPUSCULAR HGB CONC 32.7 g/dL (33.0-37.0); MEAN PLATELET VOLUME 7.6 fL (7.2-11.7); MONO # 0.5 K/uL (0.0-0.8); MONO % 7.8 % (0.0-10.0); NEUT # 3.4 K/uL (1.8-7.0); NEUT % 55.9 % (50.0-75.0); NRBC % 0.1 % (0.0-2.0); RBC 3.38 Mil/uL (4.40-5.90); RED CELL DISTRIBUTION WIDTH 15.5 % (11.5-14.5); WHITE BLOOD COUNT 6.1 K/uL (4.8-10.8)
[2018-10-01 08:22] LABS: BLOOD UREA NITROGEN 17 mg/dL (9-20); CALCIUM 8.6 mg/dl (8.6-10.4); GFR NON-AFRICAN AMERICAN > 60
[2018-10-01] MEDS: Pantoprazole 40 mg EC Tab PO SCH (10:25)
[2018-10-01] MEDS: Lidocaine 2% Jelly (5 ml) TOP SCH (10:26)
[2018-10-01] MEDS: Hydrocortisone 2.5% Rectal Cream(30 gm) PR SCH (10:26)
--- NOTE | 2018-10-01 15:44 | CP.PCM.PN ---
Subjective - Date & Time of Evaluation Date of Evaluation: 10/01/18 Time of Evaluation: 13:00 - Subjective Subjective: Patient seen today oob to chair, awake, alert ,NAD , tolerating diet, no diarrhea or melana reported vss and labs reviewed - stable hgb- 10 Objective - Vital Signs/Intake and Output Vital Signs (last 24 hours): Temp Pulse Resp BP Pulse Ox 97.3 F L 52 L 20 129/84 96 10/01/18 07:00 10/01/18 07:00 10/01/18 07:00 10/01/18 10:26 10/01/18 07:00 - Medications Medications: Current Medications Diphenhydramine HCl (Benadryl) 25 mg PO TID PRN PRN Reason: Itching / Pruritus Last Admin: 09/29/18 10:53 Dose: 25 mg Docusate Sodium (Colace) 100 mg PO BID [facility] Last Admin: 10/01/18 10:25 Dose: 100 mg Furosemide (Lasix) 20 mg IVP DAILY [facility] Last Admin: 10/01/18 10:26 Dose: 20 mg Hydrocortisone (Anusol-Hc) 1 gm [place] BID [facility] Stop: 10/10/18 18:01 Last Admin: 10/01/18 10:26 Dose: 1 applic Levothyroxine Sodium (Synthroid) 25 mcg PO DAILY@0630 [facility] Last Admin: 10/01/18 06:47 Dose: 25 mcg Lidocaine HCl (Lidocaine Hydrochloride Jelly 2% 5 Ml) 1 ml TOP BID [facility] Stop: 10/11/18 10:01 Last Admin: 10/01/18 10:26 Dose: 1 ml Metoprolol Tartrate (Lopressor) 25 mg PO BID [facility] Last Admin: 10/01/18 10:27 Dose: Not Given Pantoprazole Sodium (Protonix Ec Tab) 40 mg PO DAILY [facility] Last Admin: 10/01/18 10:25 Dose: 40 mg Tamsulosin HCl (Flomax) 0.4 mg PO DAILY [facility] Last Admin: 10/01/18 10:25 Dose: 0.4 mg Temazepam (Restoril) 15 mg PO HS PRN PRN Reason: Insomnia Last Admin: 09/27/18 21:17 Dose: 15 mg - Labs Labs: 10/01/18 07:56 10/01/18 07:56 PT 26.6 SECONDS (9.7-12.2) H 09/25/18 17:19 INR 2.4 09/25/18 17:19 APTT 42 SECONDS (21-34) H 09/25/18 17:19 Assessment and Plan - Assessment and Plan (Free Text) Assessment: A/P 83yo male with PMHx significant for recent cardiac arrest in August 2018, triple vessel CAD s/p PCI, on Plavix, atrial fibrillation on Xarelto, systolic CHF with recent EF 20%, aortic valve sclerosis, PVD, DM, HTN, dyslipidemia, hypothyroidism, CVA with left sided deficits, benign liver cysts and dementia who presented to the ED with bright red blood per rectum hgb stable - 10 -10.4 Dr. bowles GI consulted for rectal bleeding , No plan for endoscopic evaluation at this time in the absence of overt GI bleeding and inherent risk to patient given recent cardiac arrest, PCI and stent placement and ongoing cardiac issues with EF 20% and recommends Anusol-HC and Lidocaine gel for internal hemorrhoid and anal fissure - continue twice daily for two weeks Continue Colace BID as ordered Patient accepted at [facility] ffor VIRI and family in agreement as per SW seen by Dr. Hennessy today, cleared for discharge to [facility] today and Dr. Hennessy will follow the patient at [facility] D/w Dr. Hennessy regarding to restart xeralto , ok to restart xaralto since there is no evidence of bleeding
--- NOTE | 2018-10-01 16:39 | CARD ---
APPROVED REPORT Date of service: 09/30/2018 EKG Measurement Heart [id number] <Conclusion> Atrial fibrillation with rapid ventricular response with premature ventricular or aberrantly conducted complexes Left axis deviation Left ventricular hypertrophy with QRS widening Cannot rule out Septal infarct, age undetermined Abnormal ECG
[2018-10-01 17:47] VITALS: BP 117/74; PULSE 114; TEMP 97.9
--- NOTE | 2018-10-03 11:36 | CARD ---
APPROVED REPORT Date of service: 09/25/2018 EKG Measurement Heart [id number] <Conclusion> Atrial fibrillation with rapid ventricular response Left axis deviation Left ventricular hypertrophy with QRS widening Abnormal ECG
--- NOTE | 2018-10-03 11:37 | CARD ---
APPROVED REPORT Date of service: 09/25/2018 EKG Measurement Heart [id number] <Conclusion> Atrial fibrillation Left axis deviation Minimal voltage criteria for LVH, may be normal variant Septal infarct, age undetermined Abnormal ECG
== END 2018-10-01 18:45 | DRG 378 ==
LOC: C.ER 15:16 → C.9E 18:10 → C.6T 19:13 → OBSVTOIN 09-27 13:56
PROVIDERS: ADMIT Internal Medicine Nephrology; ATTEND Internal Medicine Nephrology
DX: K92.2 Gastrointestinal hemorrhage, unspecified (principal); I50.22 Chronic systolic (congestive) heart failure; K64.8 Other hemorrhoids; K60.2 Anal fissure, unspecified; E03.9 Hypothyroidism, unspecified; E11.51 Type 2 diabetes mellitus with diabetic peripheral angiopathy without gangrene; E78.5 Hyperlipidemia, unspecified; E78.00 Pure hypercholesterolemia, unspecified; I11.0 Hypertensive heart disease with heart failure; I25.10 Atherosclerotic heart disease of native coronary artery without angina pectoris; K59.00 Constipation, unspecified; I48.91 Unspecified atrial fibrillation; F02.80 Dementia in other diseases classified elsewhere, unspecified severity, without behavioral disturbance, psychotic disturbance, mood disturbance, and anxiety; G30.9 Alzheimer's disease, unspecified; Z95.5 Presence of coronary angioplasty implant and graft; Z79.01 Long term (current) use of anticoagulants

== ENCOUNTER 2018-10-02 01:11 | Emergency (ER) | payer MEDICARE, OTHER ==
[2018-10-02 01:12] VITALS: PULSE 97
[2018-10-02 01:14] VITALS: BMI 30.7
--- NOTE | 2018-10-02 01:27 | C.PDOC ---
History Of Present Illness Pt was a witnessed cardiac arrest. Was defibrilated twice with an AED before the medics arrived. Found pt to be in vfib. Patient was defibrillated about 8 times, acls protocol followed. 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 En route pt needed to be shocked again twice for v fib. He initially received 300 mg iv amiodarone. no evidence of trauma Time Seen by Provider: 10/02/18 01:27 Chief Complaint (Nursing): Cardiac Arrest History Per: EMS Reason For Code Blue: Full Arrest Circumstances: Other (nh) Arrest Witnessed By: Nurse CPR Initiated Prior To MD Arrival?: Yes Down-Time Before ACLS: Mins (0) Treatment Initiated Prior To MD Arrival: Yes: CPR, Intubation, Defibrillation, IVF, ACLS Medication Initiation, IV Access Medications Given Prior To MD Arrival: Yes: Epinephrine, Other (amiodarone) - Initial Findings Mentation: Unresponsive Respirations: None (Assisted) Pulse: Strong Rhythm: Other (a fib) Past Medical History Reviewed: Historical Data, Nursing Documentation, Vital Signs - Medical History PMH: Alzheimer's Disease, Arthritis, Atrial Fibrillation, CAD, CHF, Dementia, Diabetes, HTN, Hypercholesterolemia, Hypothyroidism Denies: Chronic Kidney Disease Comment Only: Cardia Arrhythmia (A FIB) Surgical History: Carotid Endarterectomy (RIGHT) - [facility] Procedures CORONAR ARTERIOGR-2 CATH (09/19/13) FLUOROSCOPY OF LEFT HEART USING LOW OSMOLAR CONTRAST (08/11/18) FLUOROSCOPY OF MULT COR ART USING L OSM CONTRAST (08/11/18) HEAD & NECK ENDARTER NEC (09/19/13) HYPOTHERMIA, MULTIPLE (08/11/18) INSERTION OF ENDOTRACHEAL AIRWAY INTO TRACHEA, VIA OPENING (08/11/18) INSERTION OF INFUSION DEV INTO SUP VENA CAVA, PERC APPROACH (08/11/18) INTRODUCTION OF VASOPRESSOR INTO PERIPH VEIN, PERC APPROACH (08/11/18) LEFT HEART CARDIAC CATH (09/19/13) LT HEART ANGIOCARDIOGRAM (09/19/13) MEASURE OF CARDIAC SAMPL & PRESSURE, L HEART, PERC APPROACH (08/11/18) PROCEDURE ON SINGLE VESSEL (09/19/13) RESPIRATORY VENTILATION, GREATER THAN 96 CONSECUTIVE HOURS (08/11/18) ADVENTIST OF CARDIAC RHYTHM, SINGLE (08/11/18) Family History: States: No Known Family Hx - Social History Hx Tobacco Use: No Hx Alcohol Use: No Hx Substance Use: No (ETOH at young age) - Immunization History Hx Tetanus Toxoid Vaccination: No Hx Influenza Vaccination: Yes (10/2017) Hx Pneumococcal Vaccination: Yes (10/2017) Review Of Systems Review Of Systems: ROS cannot be obtained secondary to pt's inabilty to answer questions. Physical Exam - Physical Exam Appears: In Acute Distress Skin: Pale Head: Normacephalic Eye(s): bilateral: Normal Inspection Oral Mucosa: Dry Neck: Supple Chest: Symmetrical Respiratory: No Rales, Rhonchi, Other (on vent) Gastrointestinal/Abdominal: Soft, No Tenderness, No Distention Back: Normal Inspection Male Genital: No Circumcised Extremity: No Pedal Edema, Other (r shouldeer IO) ED Course And Treatment - Laboratory Results Result Diagrams: 10/02/18 01:34 10/02/18 01:35 ECG: Interpreted By Me, Viewed By Me ECG Rhythm: Atrial Fibrillation (65), ST/T Changes (antlat mi) Pulse Ox Interpretation: Normal - Radiology CXR: Interpreted by Me, Viewed By Me CXR Interpretation: Yes: Cardiomegaly, Other (ett in place, mild vasc congestion). No: Infiltrates, Fracture, Pnemothorax Progress Note: spoke with dr ramirez - in view of his age, prolongued down time , greater than 60 minutes, the neurological outcome is dismal, therefore as per dr ramirez, no code heart. spoke with dr sanchez-icu- will come and see the pt in the ed. 2:15 pt in pea - cpr iinitiated - see code sheet. 2:24 ROSC. after numerous codes- pt went asystolic and was pronounced at 3:49 AM. See all code sheets. although pt was already admitted, every time we wanted to transfer the pt, he would code before being moved. Disposition Discussed With : Aydee Clay Comment: accepte dthe pt on his service and took over the care at 2:29 AM Doctor Will See Patient In The: ED Counseled Patient/Family Regarding: Studies Performed, Diagnosis - Disposition Disposition: HOSPITALIZED Disposition Time: 01:27 Condition: - POA Present On Arrival: Poor Glycemic Control - Clinical Impression Clinical Impression: Cardiac arrest Critical Care Time - Critical Care Note Total Time (in mins): 40 Documented critical care: time excludes all time spent performing seperately billable procedures. Decision To Admit - Pt Status Changed To: Hospital Disposition Of: Inpatient - Admit Certification Admit to Inpatient:: After my assessment, the patient will require hospitalization for at least two midnights. This is because of the severity of symptoms shown, intensity of services needed, and/or the medical risk in this patient being treated as an outpatient. - InPatient: Physician Admission Certification:: After my assessment, the patient will require hospitalization for at least two midnights. This is because of the severity of symptoms shown, intensity of services needed, and/or the medical risk in this patient being treated as an outpatient. - . Bed Request Type: ICU Admitting Physician: Aydee Clay Patient Diagnosis: Cardiac arrest
[2018-10-02 01:29] VITALS: TEMP 97.9
[2018-10-02 01:38] LABS: BASO % 0.5 % (0.0-2.0); EOS # 0.1 K/uL (0.0-0.7); EOS % 1.6 % (0.0-4.0); HEMOGLOBIN 9.1 g/dL (12.0-18.0); LYMPH # 3.7 K/uL (1.0-4.3); MEAN CELL VOLUME 93.3 fL (80.0-94.0); MEAN CORPUSCULAR HEMOGLOBIN 29.3 pg (27.0-31.0); MEAN CORPUSCULAR HGB CONC 31.4 g/dL (33.0-37.0); MEAN PLATELET VOLUME 8.1 fL (7.2-11.7); MONO # 0.2 K/uL (0.0-0.8); MONO % 2.8 % (0.0-10.0); NEUT # 4.5 K/uL (1.8-7.0); NEUT % 52.1 % (50.0-75.0); NRBC % 0.1 % (0.0-2.0); RBC 3.09 Mil/uL (4.40-5.90); RED CELL DISTRIBUTION WIDTH 15.4 % (11.5-14.5); WHITE BLOOD COUNT 8.6 K/uL (4.8-10.8)
[2018-10-02 01:46] LABS: INR 1.2; PROTHROMBIN TIME 13.2 SECONDS (9.7-12.2)
[2018-10-02 01:57] LABS: ALB/GLOB RATIO 0.8 (1.0-2.1); ALBUMIN 1.7 g/dL (3.5-5.0); ALT/SGPT 37 U/L (21-72); AST/SGOT 56 U/L (17-59); BLOOD UREA NITROGEN 16 mg/dL (9-20); CALCIUM 5.8 mg/dl (8.6-10.4); GFR NON-AFRICAN AMERICAN > 60
[2018-10-02 02:04] LABS: TROPONIN I 0.263 ng/mL (0.00-0.120)
[2018-10-02 02:20] LABS: URINE BILIRUBIN NEGATIVE (NEGATIVE); URINE CLARITY Hazy (Clear); URINE COLOR YELLOW (YELLOW); URINE GLUCOSE (UA) NEGATIVE (Normal)
[2018-10-02 02:21] LABS: URINE BLOOD SMALL (NEGATIVE); URINE PROTEIN 100 mg/dL (NEGATIVE); URINE UROBILINOGEN 0.2 mg/dL (0.2-1.0)
[2018-10-02 02:22] LABS: URINE LEUKOCYTE ESTERASE NEGATIVE Leu/uL (Negative)
[2018-10-02] MEDS ORDERED: Amiodarone 150mg/3 ml vial ONE (02:24)
[2018-10-02 02:33] LABS: SQUAMOUS EPITHIAL 1 /hpf (0-5)
[2018-10-02 02:34] LABS: URINE BACTERIA FEW (<OCC)
[2018-10-02] MEDS ORDERED: DOPamine 400mg/250ml D5W 400 MG/250 ML BAG IV PRN ×2 (03:39→03:53)
[2018-10-02] MEDS ORDERED: DOBUTamine 500mg/250ml D5W 500 MG/250 ML BAG IV SCH ×2 (03:45→04:00)
[2018-10-02 03:58] VITALS: RESP 14
[2018-10-02 04:25] VITALS: BP 59/34; PULSE 51; O2SAT 100
--- NOTE | 2018-10-02 15:33 | RAD ---
Date of service: 10/02/2018 PROCEDURE: CHEST RADIOGRAPH, 1 VIEW HISTORY: chest pain COMPARISON: 09/25/2018 FINDINGS: LUNGS: Clear. PLEURA: Possible small left pleural effusion. No right pleural effusion. No pneumothorax. CARDIOVASCULAR: There is atherosclerotic calcification of the thoracic aortic arch. Normal heart size. ET tube appropriately positioned with its tip approximately 3.6 cm above the tracheal carolann. No congestive change. OSSEOUS STRUCTURES: No significant abnormalities. VISUALIZED UPPER ABDOMEN: Normal. OTHER FINDINGS: None. IMPRESSION: Possible small left pleural effusion. ET tube in place.
--- NOTE | 2018-10-05 19:39 | CARD ---
APPROVED REPORT Date of service: 10/02/2018 EKG Measurement Heart [id number] <Conclusion> Wide QRS rhythm Left axis deviation Right bundle branch block ST elevation, consider anterior injury or acute infarct ACUTE [place] / STEMI Abnormal ECG
--- NOTE | 2018-10-05 19:39 | CARD ---
APPROVED REPORT Date of service: 10/02/2018 EKG Measurement Heart [id number] <Conclusion> av dissociation, Left axis deviation Right bundle branch block ST elevation, consider anterior injury or acute infarct ACUTE [place] / STEMI Abnormal ECG ekg rerad today,diss with dr gordon.pt .
== END 2018-10-02 07:35 ==
LOC: C.ER 01:11 → UNDOADMIN 02:30 → C.9I 02:30 → C.ER 07:35
DX: I46.9 Cardiac arrest, cause unspecified (principal); I25.10 Atherosclerotic heart disease of native coronary artery without angina pectoris; I11.0 Hypertensive heart disease with heart failure; I50.9 Heart failure, unspecified; I48.91 Unspecified atrial fibrillation; E11.9 Type 2 diabetes mellitus without complications; E78.00 Pure hypercholesterolemia, unspecified; G30.9 Alzheimer's disease, unspecified; F02.80 Dementia in other diseases classified elsewhere, unspecified severity, without behavioral disturbance, psychotic disturbance, mood disturbance, and anxiety
CPT/HCPCS: 71045; 80053; 81001; 82948; 83880; 84484; 85025; 85610; 85730; 86850; 86900; 93005; 96374; 99291; J0171; J0282; J1265; J7060